=== PATIENT | female | born 2000 | race Caucasian/White ===

== ENCOUNTER 2022-09-01 19:08 | Emergency (ER) | payer MEDICAID, SELFPAY ==
--- NOTE | ~2022-09-01 | CT_ITS ---
EXAMINATION: CT HEAD WITHOUT CONTRAST CT CERVICAL SPINE WITHOUT CONTRAST CLINICAL INFORMATION: Head strike. COMPARISON: None TECHNIQUE: Contiguous axial imaging was performed from the skull base to vertex without intravenous administration of contrast. Contiguous axial imaging was performed from the upper chest through the skull base without intravenous administration of contrast. Coronal and sagittal reformats were obtained at the acquisition workstation. This CT examination was performed using dose optimization techniques as appropriate, variously including the following: *Automated exposure control *Adjustment of mA and/or kV according to patient size (this includes techniques or standardized protocols for targeted exams where dose is matched to indication/reason for exam; i.e. extremities or head) *Use of iterative reconstruction technique DLP: 699 and 642 mGy-cm FINDINGS: Head: There is no evidence of acute intracranial hemorrhage or edematous territorial infarction. There is no abnormal attenuation within the brain parenchyma. Cornelius-white matter differentiation is preserved. The ventricles are normal in size and configuration. No evidence for obstructive hydrocephalus. No abnormal mass effect or midline shift. No extra-axial fluid collections. Hematoma along the frontal scalp. No displaced calvarial fracture. The mastoid air cells and paranasal sinuses are clear. Cervical Spine: The atlantooccipital and atlantoaxial articulations remain well aligned. Straightening of the normal cervical lordosis. Otherwise, there is anatomic alignment of the vertebral bodies and posterior elements. No evidence of acute fracture or subluxation. The vertebral body heights and disc spaces are maintained. There is no prevertebral soft tissue swelling. The thyroid gland and remaining cervical soft tissues are normal in appearance. The lung apices demonstrate no abnormalities. CT/CT cervical spine wo IV con IMPRESSION: 1. Hematoma along the frontal scalp. 2. No acute intracranial pathology. 3. No acute cervical spinal fractures or malalignment.
[2022-09-01 19:18] VITALS: BP 200/110; PULSE 102; O2SAT 96; BMI 49.2
--- NOTE | 2022-09-01 19:27 | PC.NURSE ---
Pt presents to ED via EMS. Pt is staying at [facility] for SI Pt had an episode that lead to banging their head into a wall. Pt denies LOC. Pt stated their brain just felt foggy. Facility wants pt to get CT scan of their head to make sure everything is okay, then pt can come back. Pt is calm and cooperative at this time, with a small laceration to the top of the head bleeding minimal and controlled.Pt presents A&Ox4, GCS 15, with warm dry skin. Pt denies SI, HI. Pt has a tremor at baseline since a lithium overdose a few weeks ago. Uses a walker at baseline, per EMS.
[2022-09-01 19:30] VITALS: BP 141/76; PULSE 100; RESP 26; TEMP 36.9; O2SAT 96
--- NOTE | 2022-09-01 19:44 | PC.NURSE ---
Called [facility] and spoke with [employer] supervisor who reported pt just needs a clean CT report and will be accepted back to the facility.
--- NOTE | 2022-09-01 20:41 | ED_ITS ---
HPI - Medical Clearance General Chief complaint: Medical Clearance Stated complaint: SECTION 12 Time Seen by Provider: 09/01/22 20:00 Source: patient Mode of arrival: EMS Limitations: no limitations History of Present Illness HPI Narrative: Patient comes to the emergency room via ambulance from therapist. Patient had an emotional upset, I remain headache as a wall. Patient denies SI or HI. Patient was sent here for a CAT scan and cleared they will take her back. Patient denies any other injuries other than the head contusion. Currently the patient was nauseous but now self-resolved. No vomiting, no double vision, no numbness or tingling of extremities. Related Information Allergies Allergy/AdvReac Type Severity Reaction Status Date / Time No Known Allergies Allergy Unverified 10/30/19 19:35 [No Known Allergies*] Review of Systems Review of Systems: Constitutional : No Weight loss, No Fever, No Chills, No Night Sweats, No Fatigue, No Malaise ENT/Mouth : No Hearing loss, No Ear Pain, No Nasal Congestion, No Sinus Pain, No Hoarseness, No sore throat, No Rhinorrhea, No Swallowing Difficulty Eyes: No Eye Pain, No Swelling, No Redness, No Foreign Body, No Discharge, No Vision Changes Cardiovascular : No Chest Pain, No SOB, No Dyspnea on Exertion, No Orthopnea, No Edema, No Palpitations Respiratory : No Cough, No Sputum, No Wheezing, No Smoke Exposure, No Dyspnea Gastrointestinal : No Nausea, No Vomiting, No Diarrhea, No Constipation, No abdominal Pain, No Hematochezia, No Melena Genitourinary : no irregular bleeding, No Dysuria, No Urinary Frequency, No Hematuria, No Urinary Incontinence, No Urgency, No Flank Pain, No Urinary Flow Changes, No Hesitancy Musculoskeletal : No joint pain, No Myalgias, No Joint Swelling Skin : Contusion and abrasion to the top of the head in the scalp, bleeding controlled No Skin Lesions, No rash Neuro : No Weakness, No Numbness, No Paresthesias, No Loss of Consciousness, No Dizziness, No Headache Psych : No Anxiety/Panic, No Depression, No SI/HI/AH/VH, No Social Issues, Heme/Lymph: No Bruising, No Bleeding,No Lymphadenopathy Endocrine : No Polyuria, No Polydipsia, No Temperature Intolerance [facility] Social History Social History Alcohol intake: never Smoked in Last 30 Days: Yes Use of substances other than those prescribed or required for medical reasons: Yes Substance Use Type: Marijuana Substance Use Frequency: Occasionally Advance Directives: No Advance Directives Information Provided: Yes Patient : No Physical Exam Vital Signs: Vital Signs: Last Vital Signs Temp 98.5 F 09/01/22 19:30 Pulse 100 09/01/22 19:30 Resp 26 H 09/01/22 19:30 BP 141/76 H 09/01/22 19:30 Pulse Ox 96 09/01/22 19:30 O2 Del Method Room Air 09/01/22 19:30 BMI result Body Mass Index 49.2 Const: Other: Appearance: Alert. Oriented X3. No acute distress. Eyes: Pupils equal, round and reactive to light. ENT: Pharynx normal. Neck: Normal inspection. Neck supple. No lymph nodes noted. No crepitus CVS: Normal heart rate and rhythm. Pulses normal. Normal S1 and S2 Respiratory: No respiratory distress. Breath sounds normal. No Wheezing. No rales Abdomen: Soft and nontender. No rigidity. No distention. Skin: Skin warm and dry. There is a 5 cm x 5 cm laceration to the top of the scalp, bleeding controlled, no lacerations that need stitches/nelson. Extremities: No lower extremity edema. No Lacerations. No Rash Neuro: Oriented X 3. No motor deficit. No sensory deficit. Moving all extremities. No slurred speech. CN 2 through 12 grossly intact Psych: calm, cooperative, normal affect Course Course Course Narrative: -patient is alert and oriented x3, neurologically intact. -head CT pending Medical Decision Making Medical Decision Making MDM Narrative: -patient has small abrasion to the head. -my interpretation head CT does not show any acute intracranial abnormalities. -the facility his 1 good take the patient back Differential Diagnosis Differential Diagnoses: The differential diagnosis associated with the presentation includes (Contusion, concussion, intracranial bleed) Independent Interpretation I performed an independent interpretation of an: CT Scan Radiology Impression Discussion of test interpretation with radiology: I have reviewed the radiologist's reading. Radiologist Impression: FINDINGS: Head: There is no evidence of acute intracranial hemorrhage or edematous territorial infarction. There is no abnormal attenuation within the brain parenchyma. Cornelius-white matter differentiation is preserved. The ventricles are normal in size and configuration. No evidence for obstructive hydrocephalus. No abnormal mass effect or midline shift. No extra-axial fluid collections. Hematoma along the frontal scalp. No displaced calvarial fracture. The mastoid air cells and paranasal sinuses are clear. Cervical Spine: The atlantooccipital and atlantoaxial articulations remain well aligned. Straightening of the normal cervical lordosis. Otherwise, there is anatomic alignment of the vertebral bodies and posterior elements. No evidence of acute fracture or subluxation. The vertebral body heights and disc spaces are maintained. There is no prevertebral soft tissue swelling. The thyroid gland and remaining cervical soft tissues are normal in appearance. The lung apices demonstrate no abnormalities. CT/CT cervical spine wo IV con IMPRESSION: 1.? Hematoma along the frontal scalp. 2.? No acute intracranial pathology. 3.? No acute cervical spinal fractures or malalignment. Discharge Plan Discharge Clinical Impression: Abrasion head, Contusion Patient Disposition: Home, Self-Care Instructions: Scalp Contusion in Adults (ED) Additional Instructions: Please follow-up with your primary care physician tomorrow. If you have any worsening or new symptoms, please return to the emergency room or call 911
--- NOTE | 2022-09-02 00:11 | MHC.EDTECH ---
call out to vee at [phone] to book transport for pt back to [facility], estimated eta given is [phone]
--- NOTE | 2022-09-02 00:17 | PC.NURSE ---
Attempted to call report to [facility] at 00:17. Ambulance scheduled for 00:50
--- NOTE | 2022-09-02 00:46 | PC.NURSE ---
Attempted to call report to [facility] multiple times, both supervisor records change and fourth floor. No answer, I left a message and am waiting for a call back.
--- NOTE | 2022-09-02 01:51 | PC.NURSE ---
Spoke with staff from [facility] and gave an update. They requested for me to call back when pt ambulance is here.
== END 2022-09-02 02:15 | disposition home or self-care (01) ==
PROVIDERS: Emergency Provider Emergency Medicine
DX: S00.03XA Contusion of scalp, initial encounter (principal); S00.01XA Abrasion of scalp, initial encounter; X83.8XXA Intentional self-harm by other specified means, initial encounter; Y93.9 Activity, unspecified; Y92.049 Unspecified place in boarding-house as the place of occurrence of the external cause; Y99.9 Unspecified external cause status
CPT/HCPCS: 70450; 72125; 99284

== ENCOUNTER 2023-06-07 19:03 | Inpatient (IN) | payer OTHER, SELFPAY ==
--- NOTE | 2023-06-07 15:09 | PM.EVENT ---
Documented by User: Jaye Hoskins APRN 06/07/23 15:15 Event Note Date of Service: 06/07/23 Event Note: Physician review with [facility] to prepare for transfer. 22 yo non-binary, goes by Adam. Discharged from [facility] 06/03, overdosed the same day on Tylenol. Pt found to have high levels, which today are zero. Team worked with poison crontrol. No intensive interventions were required, fluids and acetylcysteine were used. Pt experienced only mild nausea, levels decreased progressively. Time Spent With Patient Time: Total time managing care of this patient today ____ minutes. Documented by User: Vik Ramsay MD 06/08/23 23:09 Event Note Date of Service: 06/08/23
[2023-06-07 19:00] VITALS: BP 143/80; PULSE 85; RESP 21; TEMP 36.9; O2SAT 97
--- OUTSIDE RECORDS SUMMARY | 2023-06-07 19:08 | XMS_ITS | Continuity of Care Document ---
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 wall; history of multiple suicide attempts via a myriad of different methods including toxic ingestion, running into traffic, hanging ?? PAST TREATMENT TRIALS:??Adderall reported in external RX; pt reports failed trials of Thorazine (rash), Trileptal (rash), Geodon (tremors) ?? TREATMENT PROVIDERS:??Reports Dr. Moss is??outpatient psychiatrist ?? SUBSTANCE USE:?? Substances:??Cannabis, most recent use 2 weeks ago, about 2-3 times per week [1] ?? Hospital Course Patient??was admitted on a conditional voluntary.?? Monitored on unit standard safety checks and all appropriate safety measures??in place.?? Treatment team saw the patient daily for medication management, mental status exam, and safety assessment.?? Bhanu??was initially??preoccupied with pain??when admitted to the unit.?? Recognize that the??trigger for??the overdose attempt was??the [facility], who had validated??his physical symptoms and??worked with him to??identify??causes and treatment.?? Because this was??an impulse??triggered by??external events,??medications??were not changed.?? Patient states these medications have been helpful and??he has been doing very well for several months??on this regimen.?? He struggled intermittently with memories of the mental health unit.?? In some senses he??associated the unit with a permission to self-harm and??had 1 serious??self-harming attempt??early in his stay, when he was found in the bathroom with a pair of leggings wrapped around his neck. ??After this, he was??monitored??on constant observation??for several days.?? He had several less intense??self-harming episodes, where he??banged his head on the wall.?? These were brief??and??he was generally able to??correct course, take PRNs and process with staff quickly.?? After??several days on one-to-one observation,??Allyson??returned to??more independence on the u nit and did well.?? He attended groups??and was selectively social.?? He??used??a walker??on days??when??intermittent??generalized body aches were bad.?? Generally??cooperative,??in good humor,??using insight??and motivated to return home. ?? Day of Discharge??Note Allyson is??smiling and anxious to check in this morning, anticipating discharge.?? States it was generally a boring weekend, but he was able to remain safe.?? Points out??a small abrasion??on??frontalarea of this goal, admits??having an episode of head banging on Sunday.?? According to nursing staff??and??chart review,??patient had??a brief episode of head banging, but was able to reach out to staff??and process his distress, ceased self-destructive behavior.?Also took as needed medications.?? Today, Allyson??says there was no special trigger??to this behavior. ??He recognizes that??he was overstimulated by all of the activity and noise on the unit, but continued to??participate because??he was having fun.?? States he??did struggle with pain intermittently through the weekend, but at other times did not need to use the walker.?? He states more days here is not going to be good for me .?? He is looking forward to??getting home.?? States that if he becomes overwhelmed??or feels unsafe,??he will talk to his roommate,??text or call??his posting clerk??or take a nap.?? Denies thoughts of suicide or homicide, denies auditory of visual hallucinations.?? Shantellen is appropriate for??discharge home from the mental health unit today. ?? Psychiatric Review of Systems Depression:??No symptoms today Anxiety:??Mild excitement because of the discharge Shwetha:??No symptoms of shwetha today Psychotic:??denies today PTSD:??No overt symptoms today ADHD:??None evident ?? Mental Status Exam ?? General appearance:??Wearing casual clothes from home, well groomed, abrasion visible on??head??from head banging last week Eye contact:??Appropriate, normal Musculoskeletal:??Generalized body aches Behavior:??Cooperative, relaxed Speech:??Fluent,??normal rate and volume, minimal Mood:??Bright Affect:??Full range Thought Content:??Looking forward to discharge Thought Process:??Linear, organized, goal oriented Suicidality/Self harm:??Denies currently Homicidality/violence:??Denies Cognition:??[memory, orientation, concentration, executive function]??grossly intact Insight:??Good Judgement:??Good Reliability: Good Objective Assessment and Plan ?Patient instructions Continue taking medications??as prescribed Follow-up with your psychiatrist to discuss to monitor medications Follow-up with your outpatient therapist for psychotherapy Do not drink alcohol, use marijuana or cannabis products, or use illicit drugs such as cocaine If you notice a slip, quickly seek care to prevent relapse If having thoughts of hurting yourself or others, please reach out to family, trusted care provideror crisis line?? Vital Signs?? Temperature: 96.9 DegF (08/28/22 08:27:00) Temperature Route: Temporal (08/28/22 08:27:00) Pulse Rate:??109 bpm??High (08/28/22 08:27:00) Respiratory Rate: 16 br/min (08/28/22 08:29:00) Systolic Blood Pressure: 132 mm Hg (08/28/22 08:27:00) Diastolic Blood Pressure: 73 mm Hg (08/28/22 08:27:00) Blood pressure sites: Arm, left (08/28/22 08:27:00) Mean Arterial Pressure: 93 mm Hg (08/28/22 08:27:00) Pulse Pressure: 59 mm Hg (08/28/22 08:27:00) Oxygen Saturation: 96 % (08/28/22 08:27:00) Mode of Delivery (Oxygen): Room air (08/27/22 20:00:00) ? . Physical Exam Vital signs reviewed Consultants Physical therapy Pending Results COVID-19 (2019 Novel Coronavirus) PCR ordered on 08/28/2022 Post Discharge Care Discharge ?08/28/22 10:16:00 EDT Home Health Face to Face ^HomeHealthFTF Results Discharge Labs BLOOD COUNT & DIFF WBC 9.5 k/mm3 ()?? 08/16/2022 21:48 RBC 5.06 m/mm3 ()?? 08/16/2022 21:48 Hgb 14.1 Gm/dL ()?? 08/16/2022 21:48 Hct 42.7 % ()?? 08/16/2022 21:48 MCV 84.4 femtoliters ()?? 08/16/2022 21:48 MCH 27.9 pg ()?? 08/16/2022 21:48 MCHC 33.0 g/dL ()?? 08/16/2022 21:48 Platelet Count 220 k/mm3 ()?? 08/16/2022 21:48 RDW-SD 40.5 femtoliters ()?? 08/16/2022 21:48 MPV 12.7 femtoliters (High)?? 08/16/2022 21:48 Nucleated RBC (Automated) 0.0 #/100 WBC'S ()?? 08/16/2022 21:48 Abs. NRBC 0.0 k/mm3 ()?? 08/16/2022 21:48 Abs. Neut 5.1 k/mm3 ()?? 08/16/2022 21:48 Abs. Lymph 3.0 k/mm3 ()?? 08/16/2022 21:48 Abs. [place] 1.0 k/mm3 (High)?? 08/16/2022 21:48 Abs. Eo 0.3 k/mm3 ()?? 08/16/2022 21:48 Abs. Baso 0.1 k/mm3 ()?? 08/16/2022 21:48 Neut % 53.8 % ()?? 08/16/2022 21:48 Lymph % 31.7 % ()?? 08/16/2022 21:48 [place] % 10.5 % ()?? 08/16/2022 21:48 Eos % 2.9 % ()?? 08/16/2022 21:48 Baso % 0.7 % ()?? 08/16/2022 21:48 Imm Gran 0.4 % ()?? 08/16/2022 21:48 Abs. Imm Gran 0.0 k/mm3 ()?? 08/16/2022 21:48 ?? CHEM GENERAL Sodium 139 mmol/L ()?? 08/17/2022 06:18 Potassium 3.8 mmol/L ()?? 08/17/2022 06:18 Chloride 110 mmol/L (High)?? 08/17/2022 06:18 Bicarbonate Level 20 mmol/L (Low)?? 08/17/2022 06:18 Anion Gap 9 ()?? 08/17/2022 06:18 Glucose Level 98 mg/dL ()?? 08/17/2022 06:18 BUN 11 mg/dL ()?? 08/17/2022 06:18 Creatinine-Blood 0.7 mg/dL ()?? 08/17/2022 06:18 Estimated GFR Creatinine 121 ML/MIN/1.73 M2 ()?? 08/17/2022 06:18 Calcium 8.8 mg/dL ()?? 08/17/2022 06:18 Magnesium 1.9 mg/dL ()?? 08/16/2022 21:48 Protein, Total 6.2 Gm/dL ()?? 08/16/2022 21:48 Albumin 3.8 Gm/dL ()?? 08/16/2022 21:48 AG Ratio 1.6 ()?? 08/16/2022 21:48 Alkaline Phosphatase 82 units/L ()?? 08/16/2022 21:48 AST (SGOT) 23 units/L ()?? 08/16/2022 21:48 ALT (SGPT) 37 units/L (High)?? 08/16/2022 21:48 Bilirubin, Total 0.2 mg/dL ()?? 08/16/2022 21:48 ?? COAG INR 1.0 ()?? 08/16/2022 21:48 Protime (PT) 10.2 seconds ()?? 08/16/2022 21:48 ?? ENDOCRINE/TUMOR MARKER Blood <1 mIU/mL ()?? 08/16/2022 21:48 ? HEME OTHER Hold Lavender Top SPECIMEN DISCARDED AFTER 24 HOURS. ()?? 08/24/2022 12:48 ? LIPID STUDIES Cholesterol 155 mg/dL ()?? 08/17/2022 06:18 Triglycerides 190 mg/dL (High)?? 08/17/2022 06:18 HDL Cholesterol 31 mg/dL (Low)?? 08/17/2022 06:18 LDL Cholesterol 86 mg/dL ()?? 08/17/2022 06:18 Non HDL Cholesterol 124 mg/dL ()?? 08/17/2022 06:18 ? TOXICOLOGY/TDM Ethanol, Serum or Plasma NONE DETECTED mg/dL ()?? 08/16/2022 21:48 [place] Level <0.1 mmol/L (Low)?? 08/24/2022 12:50 Salicylate Level <0.3 mg/dL (Low)?? 08/16/2022 21:48 Barbiturate Screen, Urine NONE DETECTED ()?? 08/16/2022 22:46 Cannabinoid Screen, Urine NONE DETECTED ()?? 08/16/2022 22:46 Cocaine Metabolite Screen, Urine NONE DETECTED ()?? 08/16/2022 22:46 Benzodiazepine Screen, Urine NONE DETECTED ()?? 08/16/2022 22:46 Amphetamine Screen, Urine NONE DETECTED ()?? 08/16/2022 22:46 Opiate Screen, Urine NONE DETECTED ()?? 08/16/2022 22:46 Acetaminophen Level <5 mg/L (Low)?? 08/16/2022 21:48 ?? UA/URINALYSIS Appear/Color, Urine LIGHT YELLOW ()?? 08/16/2022 22:46 Clarity CLEAR (N)?? 08/16/2022 22:46 Specific Jensen, Urine 1.020 ()?? 08/16/2022 22:46 pH, Urine 7.0 ()?? 08/16/2022 22:46 Albumin, Urine NEGATIVE (N)?? 08/16/2022 22:46 Glucose, Urine NEGATIVE (N)?? 08/16/2022 22:46 Ketones, Urine NEGATIVE (N)?? 08/16/2022 22:46 Bilirubin, Urine NEGATIVE (N)?? 08/16/2022 22:46 Hemoglobin, Urine NEGATIVE (N)?? 08/16/2022 22:46 Nitrite, Urine NEGATIVE (N)?? 08/16/2022 22:46 Leukocyte, Urine NEGATIVE (N)?? 08/16/2022 22:46 Urobilinogen NORMAL mg/dL (N)?? 08/16/2022 22:46 Hold Urine Culture Testing available 48 hours from time of collection. ()?? 08/16/2022 22:46 ? URINE OTHER Est Creatinine Clearance 116.65 mL/min ()?? 08/17/2022 01:49 ? VIROLOGY COVID-19 by RT-PCR NEGATIVE ()?? 08/16/2022 22:27 COVID-19 PCR Specimen Source NASAL ()?? 08/24/2022 08:01 COVID-19 PCR Result NEGATIVE ()?? 08/24/2022 08:01 ? 60_ minutes spent on discharge * Dania Delgado: PERFORM Event Display: Discharge/Transfer Note Hospital Authored Date: [id number] Psychiatric Discharge Plan Entered On: 08/28/2022 11:19 EDT Performed On: 08/28/2022 11:17 EDT by Dania Delgado Discharge Plan Level of Care at Discharge : Home/Family/SelfCare/RestHome/Group Home/Sub AbuseTx ([facility]) Dania Delgado - 08/28/2022 11:17 EDT Discharge Plan Additional Information : You are discharging and returning to your apartment. You will resume working with your outpatient providers in the community. You prefer to make your own aftercare appointments. Dania Delgado - 08/28/2022 11:48 EDT Mode of Transportation : Leodan Chiang Arranged Transport Date/Time : 08/28/2022 12:30 EDT Dania Delgado - 08/28/2022 11:17 EDT Other Physician/PCP : Narda Fonseca [facility] [address] [place] [address] FAX: Dania Delgado - 08/28/2022 11:17 EDT Crisis Services Psychiatric Crisis Services : For your area are available 24 hours every day, by calling: Crisis Services : [facility] [phone] Dania Delgado - 08/28/2022 11:48 EDT * Angel Looney RN: PERFORM Event Display: Patient Education/Instruction Authored Date: [id number] Inpatient Adult Discharge Instructions [facility] [address], [place] [id number] Name: IDRIS WALTER : 2000 Visit: 08/17/2022 15:53:00 Current Date: 08/28/2022 12:12 Account: [id number] Inpatient Adult Discharge Instructions We would like to thank you for allowing us to assist you with your healthcare needs. The following includes patient education materials and information regarding your injury/illness. Our entire staffstrives to provide an excellent experience for our patients and their families. PLEASE ENSURE YOU FOLLOW-UP PER THE INSTRUCTIONS BELOW! ?? YOUR OPINION IS IMPORTANT TO US! Please complete the survey you may receive by mail or email. Your feedback will be used to make improvements to the healthcare experiences of our patients and their families. Surveys are administered by [employer] ?? If further treatment with your primary care physician or another doctor is recommended, it is important for you to keep the appointment. Call your primary care physician or return to the Emergency Department immediately if your condition worsens, fails to improve, or new symptoms develop. If you need to find a doctor, you can call [facility] [email or web address] for a referral at [phone] or toll free at [phone] or log in to [email or web address] ?? You can view and manage your care through the patient portal or by using a health care sharonda of your choosing. [employer] is a website that allows you to securely view your medical information including your hospital discharge summary, office visit summaries, medications and follow-up visits. You can also request appointments, renew medications, and request access to your medical information using a health care sharonda of your choosing, or just ask a question. You can enroll at [email or web address] or register during your next office visit. You have been discharged from [facility], Patient Care Unit: MHU. If you have any questions regarding these instructions after you leave, please call us and we will be happy to assist you. [facility] Your Care Team Attending Physician Taylor Peter MD Discharging Providers Flor Godoy NP Reason for Admission Routine Medical History and Physical Your Diagnosis Posttraumatic stress disorder Suicide attempt Major depressive disorder, recurrent, severe w/o psychotic behavior Borderline personality disorder in remission Tests Performed Below is a partial list of the tests performed during your hospitalization. You may have had other tests and procedures not included in this list. Please discuss all test results with your provider. Acetaminophen Level Alcohol Level Amphetamine Urine Screen Aspirin Level Barbiturate Urine Screen Basic Metabolic Panel Benzodiazepine Urine Screen Cannabinoid Urine Screen CBC w/ Differential Cocaine Urine Screen Comprehensive Metabolic Panel COVID-19 (Novel Coronavirus), Rapid PCR HOLD LAVENDER TUBE INR LIPID PANEL [place] Level Magnesium Level Opiate Screen Urine Serum Quantitative Urinalysis w/hold for Urine Culture Primary Care Provider Katie RILEY, Narda Fonseca Advance Directive Health Care Proxy on File No Patient does not wish or is unable to decide Discharge Vitals Temperature: 96.9 DegF Height: 168 cm Pulse Rate:??109 bpm??High Weight: 144 kg Respiratory Rate: 16 br/min Body Mass Index:??51.02 kg/m2??Critical Systolic Blood Pressure: 132 mm Hg Body surface area: 2.59 Diastolic Blood Pressure: 73 mm Hg ?? Oxygen Saturation: 96 % ?? Studies Pending All tests and labs ordered during this hospital stay have been completed unless listed below. Please discuss all pending results with your provider listed above in these instructions. ?? COVID-19 (2019 Novel Coronavirus) PCR What to do next Instructions From Your Doctor Discharge Orders Scheduled Follow-Up Appointments 2022 2:00 PM EDT ?? With: Michael RILEY, Blaire Skaggs Where: [facility] Status: Pending Discharge Medications IDRIS WALTER :2000 Visit Date:08/17/2022 Medications: Please continue your medications until treatment is completed or stopped by your provider. Medications not listed below should be discontinued. Discuss any questions related to medications with your provider. What How Much When Instructions Next Dose New Topiramate (topiramate 25 mg oral tablet) 25 Milligram Oral Daily Tomorrow 9am Changed DiphenhydrAMINE (diphenhydrAMINE 50 mg oral capsule) 1 capsule Oral Twice a day as needed for Anxiety As needed, not given today Changed Haloperidol (haloperidol 5 mg oral tablet) 1 tab(s) Oral 3 times a day as needed for Anxiety As needed, not given today Changed [place] (lithium 300 mg oral tablet) 300 Milligram Oral Twice a day Tonight bedtime Unchanged Fluoxetine (PROzac 20 mg oral capsule) 2 capsule Oral Daily Tomorrow 9am Unchanged Gabapentin (gabapentin 300 mg oral capsule) 2 capsule Oral 3 times a day Today 3pm Unchanged Methylphenidate (methylphenidate 54 mg oral tablet, extended release) 1 tab(s) Oral Daily Tomorrow 9am Unchanged Prazosin (prazosin 2 mg oral capsule) 1 capsule Oral Daily at Bedtime Tonight bedtime ?? What How Much When Comments Stop Taking Ammonium Lactate 12% (ammonium lactate 10% topical cream) See instructions Topically 2 times a day to feet ?? Stop Taking Aripiprazole (ARIPiprazole 10 mg oral tablet) 2 tab(s) Oral Daily Stop Taking Benztropine (benztropine 1 mg oral tablet) 1 tab(s) Oral Every 6 hours as needed for Other PRN for extrapyramidal symptoms ?? Stop Taking HydrOXYzine (hydrOXYzine pamoate 25 mg oral capsule) 2 capsule Oral 4 times a day as needed for Anxiety Stop Taking Ondansetron (ondansetron 4 mg oral tablet, disintegrating) 4 Milligram Oral Every 6 hours as needed for Nausea & Vomiting Test Results Below is a partial list of the most recent Laboratory test results done prior to this discharge. You may have had other tests and procedures not included in this list. Please discuss all test resultswith your provider. Est Creatinine Clearance - 116.65 mL/min (08/17/2022) Acetaminophen Level (08/16/2022) ? ?Acetaminophen Level - <5 mg/L Alcohol Level (08/16/2022) ???Ethanol, Serum or Plasma - NONE DETECTED Amphetamine Urine Screen (08/16/2022) ???Amphetamine Screen, Urine - NONE DETECTED Aspirin Level (08/16/2022) ? ?Salicylate Level - <0.3 mg/dL Barbiturate Urine Screen (08/16/2022) ???Barbiturate Screen, Urine - NONE DETECTED Basic Metabolic Panel (08/17/2022) ???Sodium - 139 mmol/L???Potassium - 3.8 mmol/L???Chloride - 110 mmol/L???Bicarbonate Level - 20 mmol/L???Anion Gap - 9???Glucose Level - 98 mg/dL???BUN - 11 mg/dL???Creatinine-Blood - 0.7 mg/dL???Estimated GFR Creatinine - 121 ML/MIN/1.73 M2???Calcium - 8.8 mg/dL Benzodiazepine Urine Screen (08/16/2022) ???Benzodiazepine Screen, Urine - NONE DETECTED Cannabinoid Urine Screen (08/16/2022) ???Cannabinoid Screen, Urine - NONE DETECTED CBC w/ Differential (08/16/2022) ???WBC - 9.5 k/mm3???RBC - 5.06 m/mm3???Hgb - 14.1 Gm/dL???Hct - 42.7 %???MCV - 84.4 femtoliters???MCH - 27.9 pg???MCHC - 33.0 g/dL???Platelet Count - 220 k/mm3???RDW-SD - 40.5 femtoliters???MPV - 12.7 femtoliters???Nucleated RBC (Automated) - 0.0 #/100 WBC'S???Abs. NRBC - 0.0 k/mm3???Abs. Neut - 5.1 k/mm3???Abs. Lymph - 3.0 k/mm3???Abs. [place] - 1.0 k/mm3???Abs. Eo - 0.3 k/mm3???Abs. Baso - 0.1 k/mm3???Neut % - 53.8 %???Lymph % - 31.7 %???[place] % - 10.5 %???Eos % - 2.9 %???Baso % - 0.7 %???Imm Gran - 0.4 %???Abs. Imm Gran - 0.0 k/mm3 Cocaine Urine Screen (08/16/2022) ???Cocaine Metabolite Screen, Urine - NONE DETECTED Comprehensive Metabolic Panel (08/16/2022) ???Sodium - 141 mmol/L???Potassium - 3.9 mmol/L???Chloride - 110 mmol/L???Bicarbonate Level - 21 mmol/L???Anion Gap - 10???Glucose Level - 98 mg/dL???BUN - 12 mg/dL???Creatinine-Blood - 0.8 mg/dL???Estimated GFR Creatinine - 103 ML/MIN/1.73 M2???Calcium - 9.7 mg/dL???Protein, Total - 6.2 Gm/dL???Alb umin - 3.8 Gm/dL???AG Ratio - 1.6???Alkaline Phosphatase - 82 units/L???AST (SGOT) - 23 units/L???ALT (SGPT) - 37 units/L???Bilirubin, Total - 0.2 mg/dL COVID-19 (Novel Coronavirus), Rapid PCR (08/16/2022) ???COVID-19 by RT-PCR - NEGATIVE HOLD LAVENDER TUBE (08/24/2022) ???Hold Lavender Top - SPECIMEN DISCARDED AFTER 24 HOURS. INR (08/16/2022) ???INR - 1.0???Protime (PT) - 10.2 seconds LIPID PANEL (08/17/2022) ???Cholesterol - 155 mg/dL???Triglycerides - 190 mg/dL???HDL Cholesterol - 31 mg/dL???LDL Cholesterol - 86 mg/dL???Non HDL Cholesterol - 124 mg/dL [place] Level (08/24/2022) ? ?[place] Level - <0.1 mmol/L Magnesium Level (08/16/2022) ???Magnesium - 1.9 mg/dL Opiate Screen Urine (08/16/2022) ???Opiate Screen, Urine - NONE DETECTED Serum Quantitative (08/16/2022) ? ?Blood - <1 mIU/mL Urinalysis w/hold for Urine Culture (08/16/2022) ???Appear/Color, Urine - LIGHT YELLOW???Clarity - CLEAR???Specific Jensen, Urine - 1.020???pH, Urine - 7.0???Albumin, Urine - NEGATIVE???Glucose, Urine - NEGATIVE???Ketones, Urine - NEGATIVE???Bilirubin, Urine - NEGATIVE???Hemoglobin, Urine - NEGATIVE???Nitrite, Urine - NEGATIVE???Leukocyte, Urine- NEGATIVE???Urobilinogen - NORMAL???Hold Urine Culture - Testing available 48 hours from time of collection. Allergies (NKA means No Known Allergies) Geodon??(full body tremors) Thorazine??(Skin rash) Trileptal ibuprofen Problems Active Problems??(6) COVID-19?? COVID-19 virus infection?? Depression?? Major depressive disorder, recurrent?? Severe obesity?? Tobacco dependence?? Education Materials Below is the list of Educational Leaflet Providered with your Discharge Instructions. Valuables and Belongings I fully understand and agree that [facility] accepts no responsibility for all my personal property including clothing, toilet articles, radios, jewelry, dentures, hearing aids, rings, money, or any other property that is in my possession or is brought to me after admission. I understand certain valuables may be placed in a hospital safe for a short period of time. I understand that the hospital is not liable for loss or damage due to accident, fire, or other natural occurrence while said property is in the safe. I accept full responsibility for any personal property that I keep with me, and will not hold the hospital responsible in case of loss or disappearance. I acknowledge that i have been encouraged to send valuables and belongings home. ?? Deposit/Withdrawal: Deposit Money/Amount: 0 Date for Pt to Sign Valuables/Belongings: 08/17/22 16:04:00 ?? Other Discharge Information ? Pulmonary Rehab Status?? Pulmonary Rehab Discharge Status?? Respiratory Rate: 16 br/min ?? Psychiatric Discharge Plan?? Discharge Plan Psych?? Other Agency?? Crisis Services?? Level of Care at Discharge: Home/Family/SelfCare/RestHome/Group Home/Sub AbuseTx ([facility] Physician/PCP: Narda Fonseca [facility] [address] [place] [phone] FAX: Psychiatric Crisis Services: For your area are available 24 hours every day, by calling: Discharge Plan Additional Information: You are discharging and returning to your apartment. You will resume working with your outpatient providers in the community. You prefer to make your own aftercare appointments. ?? Crisis Services: [facility] - [facility]NIC[facility] [phone] Mode of Transportation: [employer] ? Arranged Transport Date/Time: 08/28/22 12:30:00 ? Common Emergency Awareness Tips IS IT A STROKE? Act FAST and Check for these signs: FACE Does the face look uneven? ARM Does one arm drift down? SPEECH Does their speech sound strange? TIME Call at any sign of stroke ?? Heart Attack Signs Chest discomfort: Most heart attacks involve discomfort in the center of the chest and lasts more than a few minutes, or goes away and comes back. It can feel like uncomfortable pressure, squeezing, fullness or pain. Discomfort in upper body: Symptoms can include pain or discomfort in one or both arms, back, neck, jaw or stomach. Shortness of breath: With or without discomfort. Other signs: Breaking out in a cold sweat, nausea, or lightheaded. Remember, MINUTES DO MATTER. If you experience any of these heart attack warning signs, call to get immediate medical attention! ?? Smoking can increase your chances of developing chronic health problems and can cause harmful effects to other family members in your house. If you smoke, you are strongly encouraged to quit. Please call [facility] [employer] Link at [phone] or [phone]) or log in to [email or web address] for referrals to smoking cessation programs. ?? 861 Suicide & Crisis Lifeline is available 04/09 if you or someone you know needs to find a reason to keep living. By calling 485 you'll be connected to a skilled, trained counselor at a crisis center in your area. INPATIENT DISCHARGE INSTRUCTIONS SIGNATURE PAGE MORGAN IDRIS Location:[facility] Registration Date and Time:08/17/2022 15:53 EDT Primary Care Physician: Narda Wilson NP, Attending Physician: Taylor Peter MD, I IDRIS WALTER, have received the above patient education materials/instructions and have verbalizedunderstanding. If ambulance or transport services are being used I further acknowledge being given a choice of service. ?? If you need to contact me, please call me at this number: . Patient/Fuel Dock Attendant Name: Patient/Fuel Dock Attendant Signature: Relationship to Patient: Witness Name/Signature: Date: Patient Care team information Care Team Personnel Name: Natasha Dickey RN Position: [facility] RN Member Role: Primary Care Nurse Name: Blaire Solis RN Position: [facility] RN Member Role: Primary Care Nurse Name: Stefani Pinto RN Position: [facility] RN Member Role: Primary Care Nurse Name: Melissa Stapleton RN Position: [facility] RN Member Role: Primary Care Nurse Name: Ligia Stapleton RN Position: [facility] RN Member Role: Primary Care Nurse Name: Narda Wilson NP Position: Reference Physician Member Role: PCP Address: Address: [address] [place] [address] Name: Mariaelena Collazo RN Position: [facility] RN Member Role: Primary Care Nurse Name: Nikki Croft RN Position: [facility] RN Supv Member Role: Primary Care Nurse Name: John Cuellar RN Position: [facility] RN Member Role: Primary Care Nurse Name: Dsaia Anderson RN Position: [facility] ED RN W/OE and Tasks Member Role: Patient Care Provider Name: Glenda Moody MD Position: [facility] ED Medicine MD Member Role: ED Attending Physician Address: Address: [address] [place] [address] Name: Ann Masters Position: [facility] ED OA Charge Member Role: ED Associate Name: Kody Thakur RN Position: [facility] ED RN W/OE and Tasks Member Role: Patient Care Provider Care Team Related Persons Name: CORRECTION FITTINGS TIGHTENERYENI Address: home [address] [place] [address] Name: YULIYA WALTER Address: home [address] [place] [address] Name: SUNDAY WALTER Address: [place] [address]
--- OUTSIDE RECORDS SUMMARY | 2023-06-07 19:08 | XMS_ITS | Continuity of Care Document ---
Author Organization [facility] ter Address [address] [place] [address]- Care Team Providers Care Manager China Name Role Phone Katie RILEY, Narda Marian Primary Care Physici an Encounter [facility] [place] Date(s): 04/18/20 - 04/19/[address] [address]- Discharge Disposition: Disch/Trans to a [facility] Attending Physician: Rola ESTES, Shaina Mcgill Admitting Physician: Kyle Alvarez MD Referring Physician: Not on Staff, Referring MD Allergies, Adverse Reactions, Alerts Substance Reaction Severity Status Trileptal Active Immunizations Given and Recorded Vaccine Date Status Refusal Reason tetanus/diphtheria/pertussis, acel(Tdap) 12/22/19 Given Medications Abilify 10 mg oral tablet 10 mg, 1, tablet, By Mouth, Daily, Takes @ night, Refills 0, Maintenance, 04/15/20 21:02:00 EST, Partial fill upon patient request if the prescription is for a schedule II opioid drug. Start Date: 04/15/20 Status: Ordered DiphenhydrAMINE = 50 mg, Daily at bedtime, PRN at bedtime, 0 Refills, Maintenance, 11/22/19 11:27:00 EDT Start Date: 11/22/19 Status: Ordered Effexor XR 75 mg oral capsule, extended release 75 mg, 1, capsule, By Mouth, Daily, # 30 capsule, Refills 0, Maintenance, 04/14/20 20:02:00 EST, Partial fill upon patient request if the prescription is for a schedule II opioid drug. Start Date: 04/14/20 Status: Ordered ibuprofen 400 mg oral tablet See Instructions, 1 tablet By Mouth Every 6 hours/pRN for pain, Refills 0, Maintenance, 11/22/19 11:28:00 EDT, Instructions Replace Required Details Start Date: 11/22/19 Status: Ordered prazosin 2 mg oral capsule 1 capsule = 2 mg, By Mouth, Daily at bedtime, takes with 5 mg prazosin, 0 Refills, Maintenance, 04/14/20 20:04:00 EST, Partial fill upon patient request if the prescription is for a schedule II opioid drug. Start Date: 04/14/20 Status: Ordered prazosin 5 mg oral capsule 5 mg, 1, capsule, By Mouth, Daily at bedtime, Refills 0, Maintenance, 11/22/19 11:21:00 EDT Start Date: 11/22/19 Status: Ordered Thorazine Tablet = 50 mg, By Mouth, Daily, PRN Agitation, 0 Refills, Maintenance, 04/19/20 16:21:00 EST, Tablet, Partial fill upon patient request if the prescription is for a schedule II opioid drug. Start Date: 04/19/20 Status: Ordered traZODone 50 mg oral tablet 50 mg, 1, tablet, By Mouth, Daily at bedtime, Refills 0, Maintenance, 04/14/20 20:01:00 EST, Partial fill upon patient request if the prescription is for a schedule II opioid drug. Start Date: 04/14/20 Status: Ordered Tylenol 325 mg oral tablet See Instructions, PRN, 2 tablet By Mouth Every 4 hours PRN for pain and fever, Refills 0, Maintenance, for fever, 11/22/19 11:32:00 EDT, Instructions Replace Required Details Start Date: 11/22/19 Status: Ordered Problem List Condition Effective Dates Status Health Status Inform ant Depression(Confirmed) Active Tobacco dependence(Confirmed) Active Vital Signs Most recent to oldest [Reference Range]: 1 2 3 Oxygen Saturation [94-100 %] 99 % (04/19/20 11:25 AM) 98 % (04/19/20 6:39 AM) 96 % (04/19/20 1:53 AM) Pulse Rate [55-90 bpm] 104 bpm *H* (04/19/20 11:25 AM) 98 bpm *H* (04/19/20 6:39 AM) 100 bpm *H* (04/19/20 1:53 AM) Blood Pressure [90-138/55-84 mm Hg] 141/67mm Hg *H* (04/19/20 11:25 AM) 134/71mm Hg (04/19/20 6:39 AM) 136/69mm Hg (04/19/20 1:53 AM) Respiratory Rate [16-30 br/min] 16 br/min (04/19/20 11:25 AM) 17 br/min (04/19/20 6:39 AM) 17 br/min (04/19/20 1:53 AM) Temperature [96.8-100.4 DegF] 98.6 DegF (04/19/20 11:25 AM) 98.3 DegF (04/19/20 6:39 AM) 98.4 DegF (04/19/20 1:53 AM) Mode of Delivery (Oxygen) Room air (04/19/20 11:25 AM) Room air (04/19/20 6:39 AM) Room air (04/19/20 1:53 AM) Blood pressure sites Arm, right (04/19/20 11:25 AM) Arm, right (04/19/20 6:39 AM) Arm, left (04/19/20 1:53 AM) Temperature Route Oral (04/19/20 11:25 AM) Oral (04/19/20 6:39 AM) Oral (04/19/20 1:53 AM) Social History Social History Type Response Smoking Status 10 or more cigarette s (1/2 pack or more)/day in last 30 days entered on: 09/07/18 Sex
--- OUTSIDE RECORDS SUMMARY | 2023-06-07 19:08 | XMS_ITS | Continuity of Care Document ---
Author Organization [facility] Address [address] [place] [address]- Care Team Providers Care Chiseler Head Name Role Phone Katie RILEY, Narda Marian Primary Care Physici an Encounter [facility] [place] [place] Date(s): 04/14/20 - 04/14/[address] [address]- Discharge Disposition: Transfer to [facility] Facility Attending Physician: Torrey Morfin MD Admitting Physician: Torrey Morfin MD Referring Physician: Not on Staff, Referring MD Allergies, Adverse Reactions, Alerts Substance Reaction Severity Status NKA Active Immunizations Given and Recorded Vaccine Date Status Refusal Reason tetanus/diphtheria/pertussis, acel(Tdap) 12/22/19 Given Medications DiphenhydrAMINE = 50 mg, Daily at bedtime, [...] 11:21:00 EDT Start Date: 11/22/19 Status: Ordered traZODone 50 mg oral tablet [...] recent to oldest [Reference Range]: 1 2 Height 167 cm (04/14/20 11:10 PM) 167 cm (04/14/20 7:49 PM) Weight 131.5 kg (04/14/20 11:10 PM) 131.5 kg (04/14/20 7:49 PM) Oxygen Saturation [94-100 %] 97 % (04/14/20 7:49 PM) Pulse Rate [55-90 bpm] 120 bpm *H* (04/14/20 7:49 PM) Blood Pressure [90-138/55-84 mm Hg] 138/ 84mm Hg (04/14/20 7:49 PM) Respiratory Rate [16-30 br/min] 18 br/mi n (04/14/20 7:49 PM) Temperature [96.8-100.4 DegF] 99.2 DegF (04/14/20 7:49 PM) Mode of Delivery (Oxygen) Room air (04/14/20 7:49 PM) Temperature Route Oral (04/14/20 7:49 PM) Dry Weight 131.5 kg (04/14/20 11:10 PM) 131.5 kg (04/14/20 7:49 PM) Weight Obtained Via Patient/family state d (04/14/20 7:49 PM) Social History Social History Type Response Smoking Status 10 or more cigarette s (2 pack or more)/day in last 30 days entered on: 09/07/18 Sex
--- OUTSIDE RECORDS SUMMARY | 2023-06-07 19:08 | XMS_ITS | Continuity of Care Document ---
Author Organization [facility] Address [address] [place] [address]- Care Team Providers Care Stone Engraver Name Role Phone Katie RILEY, Narda Fonseca Primary Care Physicclaudia an Encounter [facility] [place] Date(s): 02/23/22 - 02/24/[address] [address]- Encounter Diagnosis Ingestion of toxin(Final) - 02/23/22 Suicidal ideation(Final) - 02/23/22 Discharge Disposition: A-D/C Home Attending Physician: Mario Alberto Colon MD Admitting Physician: Mario Alberto Colon MD Referring Physician: Not on Staff, Referring [...] (COVID-19) mRNA BNT-162b2 vac 03/02/20 Recorded Medications ammonium lactate 10% topical cream See Instructions, Topically 2 times a day to feet, # 42 Gm, 0 Refills, Maintenance, 01/24/22 9:26:00 EST, Cream, [facility]-, Partial fill upon patient request if the prescription is for a schedule II opioid drug., Topically 2... Start Date: 01/24/22 Status: Ordered ARIPiprazole 10 mg oral tablet 20 mg, 2, tablet, By Mouth, Daily, # 60 tablet, Refills 0, Tot. Refills 0, Maintenance, 01/24/22 9:25:00 EST, Route to Pharmacy Electronically, [facility]-, Partial fill upon patient request if the prescription is for a schedul... Start Date: 01/24/22 Status: Ordered benztropine 1 mg oral tablet 1 mg, 1, tablet, By Mouth, Every 6 hours, PRN, PRN for extrapyramidal symptoms, # 60 tablet, Refills 0, Tot. Refills 0, Maintenance, Other, 01/24/22 9:26:00 EST, Route to Pharmacy Electronically, [facility], Partial fill upon... Start Date: 01/24/22 Status: Ordered diphenhydrAMINE 25 mg oral tablet 2 tablet = 50 mg, By Mouth, 3 times a day, PRN Agitation, to be given with haldol only, # 60 tablet, 0 Refills, Maintenance, 01/24/22 9:26:00 EST, Tablet, [facility]-, Partialfill upon patient request if the prescription is fo... Start Date: 01/24/22 Status: Ordered gabapentin 300 mg oral capsule 600 mg, Capsule, By Mouth, 02/24/22 9:00:00 EST Start Date: 02/24/22 Stop Date: 02/24/22 Status: Completed gabapentin 300 mg oral capsule 600 mg, 2, capsule, By Mouth, 3 times a day, # 180 capsule, Refills 0, Tot. Refills 0, Maintenance,01/24/22 9:26:00 EST, Route to Pharmacy Electronically, [facility], Partial fill upon patient request if the prescription is f... Start Date: 01/24/22 Status: Ordered haloperidol 5 mg oral tablet 5 mg, 1, tablet, By Mouth, Every 4 hours, PRN, to be given with diphenhydramine, # 60 tablet, Refills 0, Tot. Refills 0, Maintenance, Agitation, 01/24/22 9:26:00 EST, Route to Pharmacy Electronically, [facility]-, Partial fill... Start Date: 01/24/22 Status: Ordered hydrOXYzine pamoate 25 mg oral capsule 2 capsule = 50 mg, By Mouth, 4 times a day, PRN Anxiety, # 90 capsule, 0 Refills, Maintenance, 01/24/22 9:26:00 EST, Capsule, [facility], Partial fill upon patient request ifthe prescription is for a schedule II opioid drug.,... Start Date: 01/24/22 Status: Ordered lithium 600 mg oral capsule = 600 mg, By Mouth, 2 times a day, # 60 capsule, 0 Refills, Maintenance, 01/24/22 9:27:00 EST, Capsule, [facility], Partial fill upon patient request if the prescription is for a schedule II opioid drug., 168, cm, 01/24/22 7:2... Start Date: 01/24/22 Status: Ordered methylphenidate 54 mg oral tablet, extended release 1 tablet = 54 mg, By Mouth, Daily, # 30 tablet, 0 Refills, Maintenance, 01/24/22 9:27:00 EST, ER Tablet, [facility], Partial fill upon patient request if the prescription is for a schedule II opioid drug., 168, cm, 01/24/22 7:... Start Date: 01/24/22 Status: Ordered ondansetron 4 mg oral tablet, disintegrating = 4 mg, By Mouth, Every 6 hours, PRN Nausea & Vomiting, # 30 capsule, 0 Refills, Maintenance, 01/24/22 9:27:00 EST, Tablet, [facility], Partial fill upon patient request if the prescription is for a schedule II opioid drug., 1... Start Date: 01/24/22 Status: Ordered prazosin 2 mg oral capsule 1 capsule = 2 mg, By Mouth, Daily at bedtime, # 30 capsule, 0 Refills, Maintenance, 01/24/22 9:27:00 EST, Capsule, [facility], Partial fill upon patient request if the prescription is for a schedule II opioid drug., 168, cm, 1... Start Date: 01/24/22 Status: Ordered PROzac 20 mg oral capsule 40 mg, 2, capsule, By Mouth, Daily, # 60 capsule, Refills 0, Tot. Refills 0, Maintenance, 01/24/22 9:26:00 EST, Route to Pharmacy Electronically, [facility]-, Partial fill upon patient request if the prescription is for a sched... Start Date: 01/24/22 Status: Ordered Problem List Condition Confirmation Course Effective Dates Status Health St atus Informant COVID-19 virus infection Confirmed Active COVID-19 1 Confirmed 11/15/21 Active Depression Confirmed Active Major depressive disorder, recurrent Confirmed Active Severe obesity Confirmed Active Tobacco dependence Confirmed Active 1Problem added by Discern Expert Results Radiology Reports * Exam Date Time Procedure Performing Provider Status 02/24/22 2:49 AM Chest Portable Racquel Nino; Auth (Verified) Notes: (Chest Portable) Reason For Exam: Shortness of Breath RESULT: Chest Portable Chest Portable HX OF PRESENT ILLNESS: C O toxic ingestion SI. Patient attempts to strangle self w sock unsuccessfully, then around 2300 ingests 4 tide pods. Reports 1 ruptured in mouth but otherwise swallowed whole.; Reason: Shortness of Breath; Clinical Question(s): CHF / CHF COMPARISON: 04/20/2021. FINDINGS: LINES AND TUBES: None. LUNGS AND PLEURA: Clear lungs. Normal pulmonary vascularity. No pleural effusion. No pneumothorax. HEART, MEDIASTINUM AND JOAQUIN: Heart is normal in size. Normal mediastinal and hilar contour. BONES AND SOFT TISSUES: No acute abnormality. IMPRESSION: No evidence of acute abnormality. WSN: [id number] Ordering Physician: Stewart Hirsch Dictated By: Madhav Garcia MD Dictated Date/Time: 02/24/22 7:34 am Reviewed By: Madhav Garcia MD Signed By: Madhav Garcia MD Signed Date/Time: 02/24/22 7:34 am Transcribed By: DEJON Transcribed Date/Time: 02/24/22 7:33 am Vital Signs Most recent to oldest [Reference Range]: 1 2 3 Height 167 cm (02/24/22 9:23 AM) 167 cm (02/24/22 6:08 AM) 167 cm (02/24/22 5:29 AM) Weight 136 kg (02/24/22:23 AM) 136 kg (02/24/22 6:08 AM) 136 kg (02/24/22:29 AM) Oxygen Saturation [94-100 %] 96 % (02/24/22:23 AM) 95 % (02/24/22 6:08 AM) 97 % (02/24/22:29 AM) Pulse Rate [55-90 bpm] 82 bpm (02/24/22:23 AM) 92 bpm *H* (02/24/22 6:08 AM) 87 bpm (02/24/22:29 AM) Body Mass Index [18.5-24.99 kg/m2] 48.76 kg/m2 *>HHI* (02/24/22:23 AM) 48.76 kg/m2 *>HHI* (02/24/22 6:08 AM) 48.76 kg/m2 *>HHI* (02/24/22:29 AM) Blood Pressure [90-138/55-84 mm Hg] 100/78mm Hg (02/24/22:23 AM) 109/69mm Hg (02/24/22 6:08 AM) 119/64mm Hg (02/23/22 11:43 PM) Respiratory Rate [16-30 br/min] 16 br/min (02/24/22 9:31 AM) 16 br/min (02/24/22:23 AM) 18 br/min (02/24/22:29 AM) Temperature [96.8-100.4 DegF] 97.3 DegF (02/24/22:23 AM) 98.7 DegF (02/23/22 11:43 PM) Mode of Delivery (Oxygen) Room air (02/24/22:23 AM) Room air (02/24/22 6:08 AM) room air (02/24/22:29 AM) Blood pressure sites Arm, left (02/24/22: AM) Temperature Route Oral (02/24/22:23 AM) Temporal (02/23/22 11:43 PM) Dry Weight 136 kg (02/24/22:23 AM) 136 kg (02/24/22 6:08 AM) 136 kg (1/13/23 5:29 AM) Social History Social History Type Response Smoking Status 10 or more cigarette s (1/2 pack or more)/day in last 30 days entered on: 12/11/20 Sex EKG study * Event Display: ECG 12-Lead Authored Date: Please click on pdf link to open report * Event Display: ECG 12-Lead Authored Date: Ventricular Rate: 97 BPM Atrial Rate: 97 BPM P-R Interval: 182 ms QRS Duration: 88 ms Q-T Interval: 354 ms QTC Calculation(Bazett): 449 ms P [place]: 56 degrees R [place]: 55 degrees T [place]: 39 degrees Normal sinus rhythm Possible Left atrial enlargement Borderline ECG When compared with ECG of 19-FEB-2022 20:30, Possible LAE now present Confirmed by CHRISTEN NÚÑEZ ([id number]) on 02/24/2022 4:45:09 PM [place]: CHRISTEN NÚÑEZ Note * Mario Alberto Colon MD: PERFORM, SIGN, VERIFY Event Display: Patient Education Handout Authored Date: [id number] * Mario Alberto Colon MD: PERFORM Event Display: Patient Education Leaflets Authored Date: [id number] Intentional Overdose, Psych Evaluation??(Adult) ?? [id number] Intentional Overdose, Psych Evaluation??(Adult) You have been evaluated and treated for taking a drug or chemical product with the intent to harm yourself. There is no sign of a toxic effect at this time. It's not likely that you will have any newsymptoms. To be safe, watch for new symptoms during the next 24 hours (see below). Symptoms will depend on the type of drug or chemical you took. An intentional overdose is likely a sign that you are depressed. Or you may be very angry with yourself or someone else. For this reason, you have received a psychiatric (psych) evaluation. It's very important for you to follow the instructions in this evaluation. Home care ??? If you are being sent home, have someone stay with you. The emotional impact of the overdose may not sink in for a while. ??? Have your friend remove all potential self-harm objects from your home such as drugs or weapons. They should put them in a place that's unknown to you. ??? Find out the suicide prevention hotline numbers, emergency numbers, and your provider numbers. Place them where they can be easily located. Give the phone numbers to your friends and family members. ??? If you were given liquid charcoal, your stools will have a black color for 1 to 2 days. A laxative is often given with charcoal. This speeds the removal of any toxins from the intestines. This may cause diarrhea for up to 24 hours. ??? If you were given charcoal but no laxative, you may become constipated. If that happens, you may take an cshu-prl-aarbodn laxative. ?? In an emergency Once you get home, keep a list of emergency numbers near. This includes trusted family members, friends, your healthcare provider, and the National Suicide Prevention Lifeline. Trained crisis counselors at the [facility] are available by calling or texting 768. An online chat option is also availableat www.suicidepreventionlifeline.org. You can also call [employer] at 197-917-KHHP (893-213-3257). [employer] is free and available 04/09. ?? Follow-up care Follow up with your healthcare provider, or as advised. ??? If you are being sent home, have someone stay with you until you follow up with your healthcareprovider, clinic, or therapist. Do this as soon as possible. ??? If you feel the urge to harm yourself again, call or text [phone]. You will be connected to trained crisis counselors at the National Suicide Prevention Lifeline. ??? If you were given information about a healthcare provider, therapist, or clinic, follow up with them. ??? If you are being discharged for evaluation right away at a psychiatric facility on a voluntary basis, go directly there with a responsible adult. ??? If you have been placed on a ???72- hour psychiatric hold,?? a ride to a facility will be arranged for you. In the future, if you or someone you know takes something that may be harmful, call the [employer] [facility] [employer] [facility] at 576-011-1831. There is someone there 24 hours a day. If you call, you will be connected to the poison control center closest to you. ?? Call 262 Call 591 if any of these occur: ??? Intense desire to harm yourself and a way to carry to out ??? Trouble breathing or swallowing, wheezing ??? Severe confusion ??? Extreme drowsiness or trouble waking up ??? Fainting or loss of consciousness ??? Fast heart rate ??? Very slow heart rate ??? Very low or very high blood pressure ??? Vomiting blood or large amounts of blood in stool ??? Seizure ?? When to get medical advice Call your healthcare provider right away if any of these occur: ??? Shakiness ??? Fast breathing (more than 25 breaths per minute) or slow breathing (less than 8 breaths per minute) ??? Shortness of breath ??? Fever of 100.4??F (38??C) or higher, or as directed by your healthcare provider ??? Shaking chills ??? Vomiting or diarrhea for more than 24 hours ??? Belly pain ??? Dizziness or weakness ??? Thoughts of harming yourself again (call or text 667) ?? For more help ??? National Suicide Prevention Lifeline at www.suicidepreventionlifeline.org or 004-157-VHNH (178-661-4487) ??? Substance Abuse and Mental Health Services Administration Helpline at www .sama.gov/find-help/national-helpline or 915-375-IXAT (935-258-4869) ??? National [place] on Mental Illness at www.willow.org or 923-412-3695 or text WILLOW to 028380 ??? Mental Health [place]omen[place] at www.[facility].org or 215-076-4753 ?? Last Reviewed Date: 2021 ?? The [employer]. All rights reserved. This information is not intended as a substitute for professional medical care. Always follow your healthcare professional's instructions. ?? Portable XR Chest Views * STEPHANSPowerscrisusanna , GALDINO S: TRANSCRISUSANNA Garcia MD, Madhav S: VERIFY Event Display: Result: Authored Date: [id number] Chest Portable HX OF PRESENT ILLNESS: C O toxic ingestion SI. Patient attempts to strangle self w sock unsuccessfully, then around 2300 ingests 4 tide pods. Reports 1 ruptured in mouth but otherwise swallowed whole.; Reason: Shortness of Breath; Clinical Question(s): CHF / CHF COMPARISON: 04/20/2021. FINDINGS: LINES AND TUBES: None. LUNGS AND PLEURA: Clear lungs. Normal pulmonary vascularity. No pleural effusion. No pneumothorax. HEART, MEDIASTINUM AND JOAQUIN: Heart is normal in size. Normal mediastinal and hilar contour. BONES AND SOFT TISSUES: No acute abnormality. IMPRESSION: No evidence of acute abnormality. WSN: [id number] Ordering Physician: Stewart Hirsch Dictated By: Madhav Garcia MD Dictated Date/Time: 02/24/22 7:34 am Reviewed By: Madhav Garcia MD Signed By: Madhav Garcia MD Signed Date/Time: 02/24/22 7:34 am Transcribed By: DEJON Transcribed Date/Time: 02/24/22 7:33 am Patient Care team information Care Team Personnel Name: Natasha Dickey RN Position: [facility] RN Member Role: Primary Care Nurse Name: Lauryn Nolasco Position: [facility] RN Member Role: Primary Care Nurse Name: Blaire Solis RN Position: [facility] RN Member Role: Primary Care Nurse Name: Stefani Pinto RN Position: [facility] RN Member Role: Primary Care Nurse Name: Melissa Stapleton RN Position: [facility] RN Member Role: Primary Care Nurse Name: Ligia Stapleton RN Position: S RN Member Role: Primary Care Nurse Name: Martin Martinez RN Position: [facility] RN Member Role: Primary Care Nurse Name: Narda Wilson NP Position: Reference Physician Member Role: PCP Address: Address: [address] [place] [address] Name: Mariaelena Collazo RN Position: S RN Member Role: Primary Care Nurse Name: Nikki Croft RN Position: [facility] RN Supv Member Role: Primary Care Nurse Name: Giana Huntley RN Position: S RN Member Role: Primary Care Nurse Name: John Cuellar RN Position: S RN Member Role: Primary Care Nurse Name: Holly Bowman RN Position: [facility] RN Member Role: Primary Care Nurse Name: Aline Izaguirre RN Position: S RN Member Role: Primary Care Nurse Name: Mario Alberto Colon MD Position: [facility] ED Medicine MD Member Role: Admitting Physician Address: Address: [address] [place] [address] [place] [address]- Name: Enrique Kulkarni RN Position: S ED RN W/OE and Tasks Member Role: Patient Care Provider Care Team Related Persons Name: ASSISTED CADET DECKYENI Address: [address] [address] Name: YULIYA MORA Address: home [address] [place] [address] Name: SUNDAY [place] Address: [place] [address]
--- OUTSIDE RECORDS SUMMARY | 2023-06-07 19:08 | XMS_ITS | Continuity of Care Document ---
Author Organization [facility] Address [address] [place] [id number]- Care Team Providers Care Certified Veterinary Technician Name Role Phone Katie RILEY, Narda Fonseca Primary Care Blanco marino En[place] [facility] [place] Date(s[place] 12/10/21 - 12/12/[address] [address]- Encounter Diagnosis Intentional self-harm by glass(Final) - 12/11/21 Suicidal ideation(Final) - 12/11/21 Forearm laceration(Final) - 12/11/21 Discharge Disposition: A-D/C Home Attending Physician: Mario [...] Vaccine Date Status Refusal Reason tetanus/diphtheria/pertussis, acel(Tdap) 10/19/21 Given tetanus/diphtheria/pertussis, acel(Tdap) 12/22/19 Given SARS-CoV-2 (COVID-19) mRNA-1273 vaccine 01/25/21 R ecorded influenza virus vaccine, inactivated 11/11/20 Give n SARS-CoV-2 (COVID-19) mRNA BNT-162b2 vac 04/13/20 Recorded SARS-CoV-2 (COVID-19) mRNA BNT-162b2 vac 03/02/20 Recorded Medications ARIPiprazole 10 mg oral tablet 20 mg, 2, tablet, By Mouth, Daily, # 60 tablet, Refills 0, Tot. Refills 0, Maintenance, 11/15/21 10:18:00 EDT, [id number] Partial fill upon patient request if the prescription is for a schedul... Start Date: 11/15/21 Status: Ordered Flonase Nares, Both, 2 times a day, PRN Congestion, 0 Refills, Maintenance, 12/08/21 2:58:00 EDT, Partial fill upon patient request if the prescription is for a schedule II opioid drug. Start Date: 12/08/21 Status: Ordered gabapentin 300 mg oral capsule 300 mg, By Mouth, 2 times a day, Afternoon and HS, # 60 capsule, Refills 0, Tot. Refills 0, Maintenance, 11/15/21 10:12:00 EDT, [facility], Partial fill upon patient request if the prescription... Start Date: 11/15/21 Status: Ordered gabapentin 300 mg oral capsule 600 mg, By Mouth, Daily in AM, # 60 capsule, Refills 0, Tot. Refills 0, Maintenance, 11/15/21 10:12:00 EDT, [id number], Partial fill upon patient request if the prescription is for a schedule I... Start Date: 11/15/21 Status: Ordered gabapentin 300 mg oral capsule 600 mg, Capsule, By Mouth, 12/11/21 9:00:00 EDT Start Date: 12/11/21 Stop Date: 12/11/21 Status: Completed gabapentin 300 mg oral capsule 300 mg, Capsule, By Mouth, 12/11/21 21:00:00 EDT Start Date: 12/11/21 Stop Date: 12/11/21 Status: Completed gabapentin 300 mg oral capsule 600 mg, Capsule, By Mouth, 12/12/21 9:00:00 EDT Start Date: 12/12/21 Stop Date: 12/12/21 Status: Completed haloperidol 5 mg oral tablet 5 mg, 1, tablet, By Mouth, Every 8 hours, PRN, # 90 tablet, Refills 0, Tot. Refills 0, Maintenance,Agitation, 11/15/21 10:12:00 EDT, Route to Pharm[facility] Electronically, [id number], Partial fill upon patient request if the prescr... Start Date: 11/15/21 Status: Ordered lithium 600 mg oral capsule = 600 mg, By Mouth, 2 times a day, # 60 capsule, 0 Refills, Maintenance, 11/15/21 10:12:00 EDT, Capsule, [facility]-[id number], Partial fill upon patient request if the prescription is for a schedule II opioid drug., 168, cm, 11/14/21 21:... Start Date: 11/15/21 Status: Ordered metFORMIN 500 mg oral tablet 1 each = 500 mg, By Mouth, 2 times a day, # 60 tablet, 0 Refills, Maintenance, 11/15/21 10:12:00 EDT, Tablet, [facility]-[id number], Partial fill upon patient request if the prescriptionis for a schedule II opioid drug., 168, cm, ... Start Date: 11/15/21 Status: Ordered prazosin 1 mg oral capsule 2 mg, Capsule, By Mouth, 12/11/21 21:00:00 EDT Start Date: 12/11/21 Stop Date: 12/11/21 Status: Completed prazosin 2 mg oral capsule 1 capsule = 2 mg, By Mouth, Daily at bedtime, # 30 capsule, 0 Refills, Maintenance, 11/15/21 10:12:00 EDT, Capsule, [facility]-[id number], Partial fill upon patient request if the prescription is for a schedule II opioid drug., 168, cm, 1... Start Date: 11/15/21 Status: Ordered PROzac 20 mg oral capsule 40 mg, 2, capsule, By Mouth, Daily, # 60 capsule, Refills 0, Tot. Refills 0, Maintenance, 11/15/21 10:12:00 EDT, Route to Pharmacy Electronically, [facility]-[id number], Partial fill upon patient request if the prescription is for a sched... Start Date: 11/15/21 Status: Ordered Problem List Condition Confirmation Course Effective Dates Status Health St atus Informant COVID-19 virus infection Confirmed Active COVID-19 1 Confirmed 11/15/21 Active Depression Confirmed Active Major depressive disorder, recurrent Confirmed Active Severe obesity Confirmed Active Tobacco dependence Confirmed Active 1Problem added by Discern Expert Vital Signs Most recent to oldest [Reference Range]: 1 2 3 4 Height 168 cm (12/12/21 2:55 AM) 168 cm (12/11/21 4:42 AM) 168 cm (12/10/21 9:16 PM) Weight 138.5 kg (12/12/21 2:55 AM) 138.5 kg (12/11/21 4:42 AM) 138.5 kg (12/10/21 9:16 PM) Oxygen Saturation [94-100 %] 96 % (12/12/21 2:55 AM) 96 % (12/11/21 8:42 PM) 98 % (12/11/21 3:36 PM) Pulse Rate [55-90 bpm] 92 bpm *H* (12/12/21 2:55 AM) 86 bpm (12/11/21 8:42 PM) 71 bpm (12/11/21 3:36 PM) Body Mass Index [18.5-24.99 kg/m2] 49.07 kg/m2 *>HHI* (12/12/21 2:55 AM) 49.07 kg/m2 *>HHI* (12/11/21 4:42 AM) 49.07 kg/m2 *>HHI* (12/10/21 9:16 PM) Blood Pressure [90-138/55-84 mm Hg] 119/64mm Hg (12/12/21 2:55 AM) 113/67mm Hg (12/11/21 8:41 PM) 114/71mm Hg (12/11/21 3:36 PM) Respiratory Rate [16-30 br/min] 18 br/min (12/12/21 10:03 AM) 18 br/min (12/12/21 2:55 AM) 18 br/min (12/12/21 2:55 AM) 18 br/min (12/12/21 2:55 AM) Temperature [96.8-100.4 DegF] 98 DegF (12/12/21 2:55 AM) 97.0 DegF (12/11/21 8:42 PM) 98.0 DegF (12/11/21 3:36 PM) Mode of Delivery (Oxygen) Room air (12/12/21 2:55 AM) Room air (12/11/21 8:42 PM) Room air (12/11/21 3:36 PM) Blood pressure sites Arm, right (12/12/21 2:55 AM) Arm, right (12/11/21 3:36 PM) Arm, left (12/11/21 4:42 AM) Temperature Route Temporal (12/12/21 2:55 AM) Temporal (12/11/21 8:42 PM) Temporal (12/11/21 3:36 PM) Dry Weight 138.5 kg (12/12/21 2:55 AM) 138.5 kg (12/11/21 4:42 AM) 138.5 kg (12/10/21 9:16 PM) Social History Social History Type Response Smoking Status 10 or more cigarette s (1/2 pack or more)/day in last 30 days entered on: 12/11/20 Sex Patient Care team information Personnel Name: Narda Wilson NP Address: Address: [address] [place] [phone]-
--- OUTSIDE RECORDS SUMMARY | 2023-06-07 19:08 | XMS_ITS | Continuity of Care Document ---
Author Organization [facility] Address [address] [place] [address]- Care Team Providers Care Forms Designer Name Role Phone Katie RILEY, Narda Fonseca Primary Care Physici an [place] [facility] [place]20 [facility] [address] [place] [address]- Encounter Diagnosis Depression(Final) - 06/22/20 Suicidal behavior(Final) - 06/22/20 Discharge Disposition: Transfer to [facility] Facility Attending Physician: Glenda Moody MD Admitting Physician: Glenda Moody MD Referring Physician: Not on Staff, Referring MD Allergies, Adverse Reactions, Alerts Substance Reaction Severity Status Trileptal Active Geodon full body tremors Active Immunizations Given and Recorded Vaccine Date Status Refusal Reason tetanus/diphtheria/pertussis, acel(Tdap) 12/22/19 Given Medications Abilify 20 mg oral tablet 1 tablet = 20 mg, By Mouth, Daily in AM, 0 Refills, Maintenance, 06/13/20 22:17:00 EDT, Partial fill upon patient request if the prescription is for a schedule II opioid drug. Start Date: 06/13/20 Status: Ordered lithium 450 mg oral tablet, extended release 2 tablet = 900 mg, By Mouth, Daily at bedtime, 0 Refills, Maintenance, 06/13/20 22:23:00 EDT, Partial fill upon patient request if the prescription is for a schedule II opioid drug. Start Date: 06/13/20 Status: Ordered Multivitamin Daily in AM, 0 Refills, Maintenance, 06/13/20 22:23:00 EDT, Partial fill upon patient request if the prescription is for a schedule II opioid drug. Start Date: 06/13/20 Status: Ordered prazosin 2 mg oral capsule 1 capsule = 2 mg, By Mouth, Daily at bedtime, takes with 5 mg prazosin, # 30 capsule, 0 Refills, Maintenance, 04/22/20 14:44:00 EST, Capsule, [facility]-, Partial fill upon patient request if the prescription is for a schedule... Start Date: 04/22/20 Stop Date: 05/22/20 Status: Ordered prazosin 5 mg oral capsule 5 mg, 1, capsule, By Mouth, Daily at bedtime, # 30 capsule, Refills 0, Tot. Refills 0, Maintenance,04/22/20 14:44:00 EST, Route to Pharmacy Electronically, [facility]-, Partial fill upon patient request if the prescription is... Start Date: 04/22/20 Stop Date: 05/22/20 Status: Ordered Prazosin Capsule 7 mg, Capsule, By Mouth, 06/24/20 21:00:00 EDT Start Date: 06/24/20 Stop Date: 06/24/20 Status: Completed Thorazine Tablet = 100 mg, By Mouth, 4 times a day, PRN Agitation, 0 Refills, Maintenance, 06/13/20 22:25:00 EDT, Tablet, Partial fill upon patient request if the prescription is for a schedule II opioid drug. Start Date: 06/13/20 Status: Ordered traZODone 150 mg oral tablet 1 tablet = 150 mg, By Mouth, Daily at bedtime, 0 Refills, Maintenance, 06/13/20 22:18:00 EDT, Partial fill upon patient request if the prescription is for a schedule II opioid drug. Start Date: 06/13/20 Status: Ordered venlafaxine 75 mg oral capsule, extended release 75 mg, 1, capsule, By Mouth, Daily in AM, Refills 0, Maintenance, 06/13/20 22:20:00 EDT, Partial fill upon patient request if the prescription is for a schedule II opioid drug. Start Date: 06/13/20 Status: Ordered Problem List Condition Effective Dates Status Health Status Inform ant Depression(Confirmed) Active Tobacco dependence(Confirmed) Active Vital Signs Most recent to oldest [Reference Range]: 1 2 3 Height 168 cm (06/26/20 8:11 AM) 168 cm (06/24/20 6:00 PM) 168 cm (06/23/20 9:11 PM) Weight 137.5 kg (06/26/20 8:11 AM) 137.5 kg (06/24/20 6:00 PM) 137.5 kg (06/23/20 9:11 PM) Oxygen Saturation [94-100 %] 99 % (06/26/20 8:11 AM) 96 % (06/25/20 9:46 PM) 97 % (06/25/20 5:18 PM) Pulse Rate [55-90 bpm] 108 bpm *H* (06/26/20 8:11 AM) 96 bpm *H* (06/25/20 9:46 PM) 110 bpm *H* (06/25/20 5:18 PM) Body Mass Index [18.5-24.99] 48.72 *>HHI* (06/26/20 8:11 AM) 48.72 *>HHI* (06/24/20 6:00 PM) 48.72 *>HHI* (06/23/20 9:11 PM) Blood Pressure [90-138/55-84 mm Hg] 120/78mm Hg (06/25/20 9:46 PM) 91/55mm Hg (06/25/20 5:00 AM) 118/80mm Hg (06/24/20 8:56 PM) Respiratory Rate [16-30 br/min] 17 br/min (06/26/20 8:11 AM) 16 br/min (06/25/20 9:46 PM) 20 br/min (06/25/20 5:18 PM) Temperature [96.8-100.4 DegF] 98.7 DegF (06/26/20 8:11 AM) 97.3 DegF (06/25/20 9:46 PM) 97.2 DegF (06/25/20 5:18 PM) Mode of Delivery (Oxygen) Room air (06/26/20 8:11 AM) Room air (06/25/20 9:46 PM) Room air (06/25/20 5:18 PM) Blood pressure sites Arm, right (06/26/20 8:11 AM) Arm, left (06/24/20 6:00 PM) Arm, left (06/23/20 9:25 AM) Temperature Route Oral (06/26/20 8:11 AM) Oral (06/25/20 9:46 PM) Oral (06/25/20 5:18 PM) Dry Weight 137.5 kg (06/26/20 8:11 AM) 137.5 kg (06/24/20 6:00 PM) 137.5 kg (06/23/20 9:11 PM) Weight Obtained Via Patient/family state d (06/21/20 9:03 PM) Social History Social History Type Response Smoking Status 10 or more cigarette s (1/2 pack or more)/day in last 30 days entered on: 09/07/18 Sex
--- OUTSIDE RECORDS SUMMARY | 2023-06-07 19:08 | XMS_ITS | Continuity of Care Document ---
Author Organization [facility] Address [address] [place] [address]- Care Team Providers Care Distance Learning Administrator Name Role Phone Katie RILEY, Narda Fonseca Primary Care Physici an Encounter [facility] [place] Date(s): 04/20/21 - 04/21/[address] [address]- Discharge Disposition: A-D/C Home Attending Physician: Glenda Moody MD Admitting Physician: Glenda Moody MD Referring Physician: Not on Staff, Referring MD Allergies, Adverse Reactions, Alerts Substance Reaction Severity Status Trileptal Active Geodon full body tremors Active Immunizations Given and Recorded Vaccine Date Status Refusal Reason influenza virus vaccine, inactivated 11/11/20 Give n tetanus/diphtheria/pertussis, acel(Tdap) 12/22/19 Given Medications Ativan 1 mg oral tablet 1 tablet = 1 mg, By Mouth, 3 times a day, 0 Refills, Maintenance, 12/07/20 11:03:00 EDT, Partial fill upon patient request if the prescription is for a schedule II opioid drug. Start Date: 12/07/20 Status: Ordered chlorproMAZINE 100 mg oral tablet = 100 mg, By Mouth, 3 times a day, PRN Agitation, # 90 tablet, 1 Refills, Maintenance, 11/15/20 15:51:00 EDT, Tablet, [id number], Partial fill upon patient request if the prescription is for a schedule II opioid drug., 168, cm,... Start Date: 11/15/20 Status: Ordered chlorproMAZINE 50 mg oral tablet = 50 mg, By Mouth, 3 times a day, # 90 tablet, 1 Refills, Maintenance, 11/15/20 15:50:00 EDT, Tablet, [id number], Partial fill upon patient request if the prescription is for a schedule II opioid drug., 168, cm, 11/15/20 9:15:0... Start Date: 11/15/20 Status: Ordered Detrol LA 4 mg oral capsule, extended release 1 capsule = 4 mg, By Mouth, Daily, # 30 capsule, 3 Refills, Maintenance, 12/07/20 11:25:00 EDT, CR Capsule, [facility]-[id number], Partial fill upon patient request if the prescription is for a schedule II opioid drug., 167, cm, 12/07/20... Start Date: 12/07/20 Status: Ordered hydrOXYzine pamoate 50 mg oral capsule = 50 mg, By Mouth, Every 4 hours, PRN Anxiety, # 90 capsule, 1 Refills, Maintenance, 11/15/20 15:51:00 EDT, Capsule, [facility]-[id number], Partial fill upon patient request if the prescription is for a schedule II opioid drug., 168, cm,... Start Date: 11/15/20 Status: Ordered Ibuprofen Refills 0, Maintenance, 03/17/21 10:50:00 EST, Partial fill upon patient request if the prescription is for a schedule II opioid drug. Start Date: 03/17/21 Status: Ordered lithium 300 mg oral tablet, extended release 2 tablet = 600 mg, By Mouth, 2 times a day, # 120 tablet, 1 Refills, Maintenance, 11/15/20 15:50:00EDT, ER Tablet, [facility]- [id number], Partial fill upon patient request if the prescription is for a schedule II opioid drug., 168, cm, 1... Start Date: 11/15/20 Status: Ordered prazosin 2 mg oral capsule 1 capsule = 2 mg, By Mouth, Daily at bedtime, takes with 5 mg prazosin, # 30 capsule, 1 Refills, Maintenance, 11/15/20 15:50:00 EDT, Capsule, [facility]-[id number], Partial fill upon patient request if the prescription is for a schedule I... Start Date: 11/15/20 Stop Date: 01/14/21 Status: Ordered prazosin 5 mg oral capsule 5 mg, 1, capsule, By Mouth, Daily at bedtime, # 30 capsule, Refills 1, Tot. Refills 1, Maintenance,11/15/20 15:50:00 EDT, Route to Pharmacy Electronically, [facility]-[id number], Partial fill upon patient request if the prescription is f... Start Date: 11/15/20 Stop Date: 01/14/21 Status: Ordered PROzac 40 mg oral capsule 1 capsule = 40 mg, By Mouth, Daily, # 30 capsule, 1 Refills, Maintenance, 11/15/20 15:50:00 EDT, Capsule, [facility]-[id number], Partial fill upon patient request if the prescription is for a schedule II opioid drug., 168, cm, 11/15/20 9:... Start Date: 11/15/20 Status: Ordered traZODone 150 mg oral tablet 1 tablet = 150 mg, By Mouth, Daily at bedtime, # 30 tablet, 0 Refills, Maintenance, 11/15/20 15:50:00 EDT, Tablet, [facility]-[id number], Partial fill upon patient request if the prescription is for a schedule II opioid drug., 168, cm, 10... Start Date: 11/15/20 Status: Ordered Problem List Condition Effective Dates Status Health Status Inform ant Depression(Confirmed) Active Severe obesity(Confirmed) Active Tobacco dependence(Confirmed) Active Results Radiology Reports * Exam Date Time Procedure Performing Provider Status 04/20/21 9:35 PM Chest Portable Short , Taty; Auth (Jesús ified) Notes: (Chest Portable) Reason For Exam: weakness;Other: RESULT: Chest Portable Chest Portable Hx of Present Illness: pt had virus approx 2 wks ago, returns today w increased body aches, headaches and generalized weakness. denies fevers or chills, states vomit x 1 yesterday, +nausea.; Reason: Other:; weakness; Clinical Question(s): Pneumonia COMPARISON: 11/18/2020 FINDINGS: LINES AND TUBES: None. LUNGS AND PLEURA: Clear lungs. Normal pulmonary vascularity. No pleural effusion. No pneumothorax. HEART, MEDIASTINUM AND JOAQUIN: Heart is normal in size. Normal upper mediastinal and hilar contour. BONES AND SOFT TISSUES: No acute abnormality. IMPRESSION: No acute abnormality. WSN: [id number] Ordering Physician: Torrey Morfin Dictated By: Madhav Hernandes MD Dictated Date/Time: 04/20/21 9:42 pm Reviewed By: Madhav Henrandes MD Signed By: Madhav Hernandes MD Signed Date/Time: 04/20/21 9:42 pm Transcribed By: DEJON Transcribed Date/Time: 04/20/21 9:41 pm Vital Signs Most recent to oldest [Reference Range]: 1 2 Height 168 cm (04/20/21 8:32 PM) Weight 144 kg (04/20/21 8:32 PM) Oxygen Saturation [94-100 %] 98 % (04/21/21 12:19 AM) 95 % (04/20/21 8:32 PM) Pulse Rate [55-90 bpm] 78 bpm (04/21/21 12:19 AM) 86 bpm (04/20/21 8:32 PM) Blood Pressure [90-138/55-84 mm Hg] 125/ 69mm Hg (04/21/21 12:19 AM) 128/92mm Hg (04/20/21 8:32 PM) Respiratory Rate [16-30 br/min] 18 br/mi n (04/21/21 12:19 AM) 18 br/min (04/20/21 8:32 PM) Temperature [96.8-100.4 DegF] 98.5 DegF (04/20/21 8:00 PM) Mode of Delivery (Oxygen) Room air (04/21/21 12:19 AM) Dry Weight 144 kg (04/20/21 8:32 PM) Social History Social History Type Response Smoking Status 10 or more cigarette s (1/2 pack or more)/day in last 30 days entered on: 12/11/20 Sex
--- OUTSIDE RECORDS SUMMARY | 2023-06-07 19:08 | XMS_ITS | Continuity of Care Document ---
Author Organization [facility] Address [address] [place] [address]- Care Team Providers Care Occupational Therapy Supervisor Name Role Phone Katie RILEY, Narda Fonseca Primary Care Physici an [place] [facility] [place] [facility] [address] [place] [address]- Attending Physician: AdmMoreno ochoa Admitting Physician: Admtr, [id number] Referring Physician: Admtr, [id number] Allergies, Adverse Reactions, Alerts Substance Reaction Severity [...] 1 Refills, Maintenance, 11/15/20 15:51:00 EDT, Tablet, [facility]-[id number], Partial fill upon patient request if the prescription is for a schedule II opioid drug., 168, cm,... Start Date: 11/15/20 Status: Ordered chlorproMAZINE 50 mg oral tablet = 50 mg, By Mouth, 3 times a day, # 90 tablet, 1 Refills, Maintenance, 11/15/20 15:50:00 EDT, Tablet, [facility]-[id number], Partial fill upon patient request if the prescription is for a schedule II opioid drug., 168, cm, 11/15/20 9:15:0... Start Date: 11/15/20 Status: Ordered Detrol LA 4 mg oral capsule, extended release 1 capsule = 4 mg, By Mouth, Daily, # 30 capsule, 3 Refills, Maintenance, 12/07/20 11:25:00 EDT, CR Capsule, [facility]-[id number], Partial fill upon patient request if the prescription is for a schedule II opioid drug., 167, cm, 12/07/20... Start Date: 12/07/20 Status: Ordered hydrOXYzine pamoate 50 mg oral capsule = 50 mg, By Mouth, Every 4 hours, PRN Anxiety, # 90 capsule, 1 Refills, Maintenance, 11/15/20 15:51:00 EDT, Capsule, [facility]-[id number], Partial fill upon patient request if the prescription is for a schedule II opioid drug., 168, cm,... Start Date: 11/15/20 Status: Ordered lithium 300 mg oral tablet, extended release 2 tablet = 600 mg, By Mouth, 2 times a day, # 120 tablet, 1 Refills, Maintenance, 11/15/20 15:50:00EDT, ER Tablet, [facility]- 02567, Partial fill upon patient request if the prescription is for a schedule II opioid drug., 168, cm, 1... Start Date: 11/15/20 Status: Ordered prazosin 2 mg oral capsule 1 capsule = 2 mg, By Mouth, Daily at bedtime, takes with 5 mg prazosin, # 30 capsule, 1 Refills, Maintenance, 11/15/20 15:50:00 EDT, Capsule, [facility]-[id number], Partial fill upon patient request if the prescription is for a schedule I... Start Date: 11/15/20 Stop Date: 01/14/21 Status: Ordered prazosin 5 mg oral capsule 5 mg, 1, capsule, By Mouth, Daily at bedtime, # 30 capsule, Refills 1, Tot. Refills 1, Maintenance,11/15/20 15:50:00 EDT, Route to Pharmacy Electronically, [facility]-[id number], Partial fill upon patient request if the prescription is f... Start Date: 11/15/20 Stop Date: 01/14/21 Status: Ordered PROzac 40 mg oral capsule 1 capsule = 40 mg, By Mouth, Daily, # 30 capsule, 1 Refills, Maintenance, 11/15/20 15:50:00 EDT, Capsule, [facility]-[id number], Partial fill upon patient request if the prescription is for a schedule II opioid drug., 168, cm, 11/15/20 9:... Start Date: 11/15/20 Status: Ordered traZODone 150 mg oral tablet 1 tablet = 150 mg, By Mouth, Daily at bedtime, # 30 tablet, 0 Refills, Maintenance, 11/15/20 15:50:00 EDT, Tablet, [facility]-[id number], Partial fill upon patient request if the prescription is for a schedule II opioid drug., 168, cm, 10... Start Date: 11/15/20 Status: Ordered Problem List Condition Effective Dates Status Health Status Inform ant Depression(Confirmed) Active Tobacco dependence(Confirmed) Active Social History Social History Type Response Smoking Status 10 or more cigarette s (1/2 pack or more)/day in last 30 days entered on: 12/11/20 Sex
--- OUTSIDE RECORDS SUMMARY | 2023-06-07 19:08 | XMS_ITS | Continuity of Care Document ---
Author Organization [facility] Address [address] [place] [id number]- Care Team Providers Care Lobby Concierge Name Role Phone Yovanny RILEY, Nikki Primary Care Physician [phone] Encounter [facility] Date(s): 03/12/23 - 03/14/[address] [address]- Encounter Diagnosis Medication overdose(Final) - 03/12/23 Suicide attempt(Final) - 03/12/23 Discharge Disposition: Transferred to short-term general hospit Attending Physician: Landen Trujillo DO Admitting Physician: Boogie ESTES, Magdi Rogers Referring Physician: Not on Staff, Referring MD Allergies, Adverse Reactions, Alerts Substance Reaction Severity Status Thorazine Skin rash Active Trileptal Active Geodon [...] (COVID-19) mRNA [id number] vac 03/02/20 Recorded Medications haloperidol 5 mg oral tablet 5 mg, By Mouth, 3 times a day, PRN, # 90 tablet, Refills 0, Tot. Refills 0, Maintenance, Agitation,03/06/23 16:00:00 EST, Route to Pharmacy Electronically, [facility] Partial fill upon patient request if the prescription is... Start Date: 03/06/23 Status: Ordered prazosin 1 mg oral capsule 1 mg, By Mouth, Daily at bedtime, # 30 capsule, Refills 0, Tot. Refills 0, Maintenance, 03/06/23 16:01:00 EST, Route to Pharmacy Electronically, [facility], Partial fill uponpatient request if the prescription is for a schedu... Start Date: 03/06/23 Status: Ordered Problem List Condition Confirmation Course Effective Dates Status Health St atus Informant Borderline personality disorder Confirmed Active Alcohol use Confirmed Active Depression Confirmed Active Transgender Confirmed Active NATHAN (generalized anxiety disorder) Confirmed Active History of suicide attempt Confirmed Active History of ADHD Confirmed Active History of COVID-19 Confirmed Active Major depressive disorder, recurrent Confirmed Active Severe obesity Confirmed Active Tobacco dependence Confirmed Active Vital Signs Most recent to oldest [Reference Range]: 1 2 3 Height 167 cm (03/14/23 11:15 AM) 167 cm (03/14/23 7:30 AM) 167 cm (03/14/23 4:30 AM) Weight 152.2 kg (03/13/23 8:41 AM) 152.2 kg (03/12/23 10:36 PM) 147.5 kg (03/12/23 5:54 PM) Oxygen Saturation [94-100 %] 96 % (03/14/23 11:15 AM) 96 % (03/14/23 7:30 AM) 99 % (03/14/23 4:30 AM) Pulse Rate [55-90 bpm] 84 bpm (03/14/23 11:15 AM) 86 bpm (03/14/23 7:30 AM) 79 bpm (03/14/23 4:30 AM) Body Mass Index [18.5-24.99 kg/m2] 54.57 kg/m2 *>HHI* (03/12/23 10:36 PM) Blood Pressure [90-138/55-84 mm Hg] 117/62mm Hg (03/14/23 11:15 AM) 111/81mm Hg (03/14/23 7:30 AM) 102/72mm Hg (03/14/23 4:30 AM) Respiratory Rate [16-30 br/min] 18 br/min (03/14/23 11:15 AM) 19 br/min (03/14/23 7:30 AM) 18 br/min (03/14/23 4:30 AM) Temperature [96.8-100.4 DegF] 97.6 DegF (03/14/23 11:15 AM) 97.3 DegF (03/14/23 7:30 AM) 97.8 DegF (03/14/23 4:30 AM) Liters per Minute 1 L/min (03/14/23 11:15 AM) 1 L/min (03/14/23 7:30 AM) 1 L/min (03/14/23 4:30 AM) Mode of Delivery (Oxygen) Nasal cannula (03/14/23 11:15 AM) Nasal cannula (03/14/23 7:30 AM) Nasal cannula (03/14/23 4:30 AM) Blood pressure sites Arm, right (03/14/23 11:15 AM) Arm, right (03/14/23 7:30 AM) Arm, right (03/14/23 4:30 AM) Temperature Route Oral (03/14/23 11:15 AM) Oral (03/14/23 7:30 AM) Oral (03/14/23 4:30 AM) Dry Weight 147.45 kg (03/12/23 10:36 PM) 147.45 kg (03/12/23 5:54 PM) Weight Obtained Via Bed scale (03/13/23 8:41 AM) Social History Social History Type Response Smoking Status 10 or more cigarette s (1/2 pack or more)/day in last 30 days entered on: 09/07/18 Sex Admission evaluation note * Boogie ESTES, Magdi Rogers: MODIFY, MODIFY, MODIFY, PERFORM, MODIFY, MODIFY, MODIFY, MODIFY, MODIFY, MODIFY Event Display: Admission Note Authored Date: Patient: ??JORGE MORA ? Age:??22 Years?Sex:??Female?:??2000?? Chief Complaint/Reason for Consultation OD, SI History of Present Illness 22-year-old?female with a significant psychiatric history, including alcohol abuse, borderline personality, anxiety, and depression, presented to the ED following a suicide attempt by intentional??overdose of home medications ?Pre-Hospital course: ?-Patient reportedly had suicidal attempt with intentional overdose of home medications, shetook a bunch of home medicines including duloxetine, haloperidol, prazosin, topiramate, Concerta, not aware about the dose ingested, she was feeling anxious during the time so she took this meds Of note patient has prior admissions due to suicidal attempts??with drug overdose ?ED course: ?On presentation to the ED vitals are stable Labs are significant for normal CBC, normal electrolytes, In the ED patient received charcoal, IV fluids Patient be admitted for the management of drug overdose Review of Systems A full review of systems was completed and is otherwise negative except as mentioned in history of present illness.?? Objective Vital Signs?? Temperature: 98.3 DegF (03/12/23 17:54:00) Temperature Route: Temporal (03/12/23 17:54:00) Pulse Rate:??105 bpm??High (03/12/23 20:00:00) Respiratory Rate: 18 br/min (03/12/23 20:00:00) Systolic Blood Pressure: 112 mm Hg (03/12/23 20:00:00) Diastolic Blood Pressure: 79 mm Hg (03/12/23 20:00:00) Blood pressure sites: Arm, right (03/12/23 17:54:00) Mean Arterial Pressure: 57 mm Hg (03/12/23 17:54:00) Pulse Pressure: 33 mm Hg (03/12/23 20:00:00) Oxygen Saturation: 95 % (03/12/23 20:00:00) Mode of Delivery (Oxygen): Room air (03/12/23 20:00:00) ? Physical Exam ?General: AAOx2, in no acute distress ?Neuro: CN 2-12 grossly intact, motor strength 5/5 in all extremities, no sensory deficits?HEENT: EOMI, PERRL, mouth/nose/pharynx WNL ?Neck: Supple, no LAD, JVD not congested ?Heart: Normal S1/S2, RRR, no MRGs ?Lungs: CTA b/l, no rales, rhonchi, wheezing or rubs ?Abdomen: +BS, soft, non-tender.non Distended. ?Extremities: Warm, no edema b/l. ?Musculoskeletal:??Joints (no swelling, denies tenderness). ? Assessment/Plan 22-year-old?female with a significant psychiatric history, including alcohol abuse, borderline personality, anxiety, and depression, presented to the ED following a suicide attempt by intentional??overdose of home medications ? Medication overdose (T50.901A):??- Suicide attempt (T14.91XA):??- -Patient reportedly had suicidal attempt with intentional overdose of home medications, she took a bunch of home medicines including duloxetine, haloperidol, prazosin, topiramate, Concerta, not awareabout the dose ingested, she was feeling anxious during the time so she took this meds Of note patient has prior admissions due to suicidal attempts??with drug overdose ?On presentation to the ED vitals are stable Labs are significant for normal CBC, normal electrolytes, In the ED patient received charcoal, IV fluids ?? Plan: Follow-up with poison control. every 2-hour EKGs, keep magnesium above 2 and potassium above 4. f/u urine tox screen Continue with IV fluids Monitor electrolytes Suicidal precautions Telemetry Psych consult Will hold all home meds for tonight ? Quality measures: Code Status:??Full code. Regular diet Pneumoboots ? Histories Allergies Allergies ?(Active and Proposed Allergies Only) Thorazine? (Severity: Unknown severity, Onset: Unknown) ?Reactions: Skin rash Geodon? (Severity: Unknown severity, Onset: Unknown) ?Reactions: full body tremors Trileptal? (Severity: Unknown severity, Onset: Unknown) ? Past Medical History/Problem List Active Problems??(11) Alcohol use Borderline personality disorder Depression NATHAN (generalized anxiety disorder) History of ADHD History of COVID-19 History of suicide attempt Major depressive disorder, recurrent Severe obesity Tobacco dependence Transgender ? Past Surgical History Cholecystectomy ? Social History Alcohol Details:??Use: Current. ??Frequency: 1-2 times per month. ??Type: Liquor. ??Average drinks per day:8. Employment/School Details:??Status: Unemployed. Exercise Details:??Self assessment: Poor condition. Home/Environment Details:??Living situation: Home/Independent. ??Lives with: Housemates. Nutrition/Health Details:??Diet: lactose free. Sexual Details:??Gender identity: Non-binary. ??Preferred pronoun: They/them. Substance Abuse Details:??Use: Never. Tobacco Details:??Use: 10 or more cigarettes (1/2 pack or more)/day in last 30 days. Electronic Cigarette/Vaping Details:??Electronic Cigarette Use: Never. ? Family History Father: Diabetes mellitus; Hypertension Mother: Cancer; Diabetes mellitus; Hypertension Sister: Depression ? Medications Home Medications Duloxetine (duloxetine 60 mg oral enteric coated capsule)?60?Milligram?By Mouth?Daily Haloperidol (haloperidol 5 mg oral tablet)?5?Milligram?By Mouth?3 times a day?as needed?Agitation Methylphenidate (methylphenidate 27 mg oral tablet, extended release)?27?Milligram?By Mouth?Daily Prazosin (prazosin 1 mg oral capsule)?1?Milligram?By Mouth?Daily at bedtime Topiramate (topiramate 25 mg oral tablet)?75?Milligram?By Mouth?Daily at bedtime ? Results Recent Labs BLOOD COUNT & DIFF WBC 7.4 k/mm3 ()?? 03/12/2023 18:55 RBC 4.86 m/mm3 ()?? 03/12/2023 18:55 Hgb 13.6 Gm/dL ()?? 03/12/2023 18:55 Hct 41.4 % ()?? 03/12/2023 18:55 MCV 85.2 femtoliters ()?? 03/12/2023 18:55 MCH 28.0 pg ()?? 03/12/2023 18:55 MCHC 32.9 g/dL (Low)?? 03/12/2023 18:55 Platelet Count 167 k/mm3 ()?? 03/12/2023 18:55 RDW-SD 40.9 femtoliters ()?? 03/12/2023 18:55 MPV 12.4 femtoliters ()?? 03/12/2023 18:55 Nucleated RBC (Automated) 0.0 #/100 WBC'S ()?? 03/12/2023 18:55 Abs. NRBC 0.0 k/mm3 ()?? 03/12/2023 18:55 Abs. Neut 4.4 k/mm3 ()?? 03/12/2023 18:55 Abs. Lymph 2.1 k/mm3 ()?? 03/12/2023 18:55 Abs. Sac 0.8 k/mm3 ()?? 03/12/2023 18:55 Abs. Eo 0.1 k/mm3 ()?? 03/12/2023 18:55 Abs. Baso 0.1 k/mm3 ()?? 03/12/2023 18:55 Neut % 59.1 % ()?? 03/12/2023 18:55 Lymph % 28.2 % ()?? 03/12/2023 18:55 Sac % 10.1 % ()?? 03/12/2023 18:55 Eos % 1.8 % ()?? 03/12/2023 18:55 Baso % 0.7 % ()?? 03/12/2023 18:55 Imm Gran 0.1 % ()?? 03/12/2023 18:55 Abs. Imm Gran 0.0 k/mm3 ()?? 03/12/2023 18:55 ?? CHEM GENERAL Sodium 138 mmol/L ()?? 03/12/2023 18:55 Potassium 3.8 mmol/L ()?? 03/12/2023 18:55 Chloride 107 mmol/L ()?? 03/12/2023 18:55 Bicarbonate Level 19 mmol/L (Low)?? 03/12/2023 18:55 Anion Gap 12 ()?? 03/12/2023 18:55 Glucose Level 115 mg/dL (High)?? 03/12/2023 18:55 BUN 13 mg/dL ()?? 03/12/2023 18:55 Creatinine-Blood 0.7 mg/dL ()?? 03/12/2023 18:55 Estimated GFR Creatinine 121 ML/MIN/1.73 M2 ()?? 03/12/2023 18:55 Calcium 9.2 mg/dL ()?? 03/12/2023 18:55 Magnesium 1.7 mg/dL ()?? 03/12/2023 18:55 Protein, Total 6.9 Gm/dL ()?? 03/12/2023 18:55 Albumin 4.1 Gm/dL ()?? 03/12/2023 18:55 AG Ratio 1.5 ()?? 03/12/2023 18:55 Alkaline Phosphatase 82 units/L ()?? 03/12/2023 18:55 AST (SGOT) 21 units/L ()?? 03/12/2023 18:55 ALT (SGPT) 26 units/L ()?? 03/12/2023 18:55 Bilirubin, Total 0.2 mg/dL ()?? 03/12/2023 18:55 ?? ENDOCRINE/TUMOR MARKER TSH 1.87 uIU/mL ()?? 03/12/2023 18:55 Blood <1 mIU/mL ()?? 03/12/2023 18:55 ?? HEME OTHER Hold Blue Top SPECIMEN DISCARDED AFTER 4 HOURS. ()?? 03/12/2023 18:55 ?? TOXICOLOGY/TDM Ethanol, Serum or Plasma NONE DETECTED mg/dL ()?? 03/12/2023 18:55 Salicylate Level 0.3 mg/dL (Low)?? 03/12/2023 18:55 Acetaminophen Level <5 mg/L (Low)?? 03/12/2023 18:55 ?? URINE OTHER Est Creatinine Clearance 114.88 mL/min ()?? 03/12/2023 19:20 ?? VIROLOGY Influenza A PCR NEGATIVE ()?? 03/12/2023 18:18 Influenza B PCR NEGATIVE ()?? 03/12/2023 18:18 RSV PCR NEGATIVE ()?? 03/12/2023 18:18 COVID-19 PCR Specimen Source NASAL ()?? 03/12/2023 18:18 COVID-19 PCR Result NEGATIVE ()?? 03/12/2023 18:18 ? EKG study * Event Display: ECG 12-Lead Authored Date: Please click on pdf link to open report * Event Display: ECG 12-Lead Authored Date: Ventricular Rate: 83 BPM Atrial Rate: 83 BPM P-R Interval: 212 ms QRS Duration: 102 ms Q-T Interval: 384 ms QTC Calculation(Bazett): 451 ms P [place]: 35 degrees R [place]: 38 degrees T [place]: 21 degrees Sinus rhythm with 1st degree A-V block Otherwise normal ECG When compared with ECG of 13-MAR-2023 16:54, No significant change was found Confirmed by Fausto Gutierrez ([id number]) on 03/14/2023 8:56:49 AM Fraser: Fausto Gutierrez * Event Display: ECG 12-Lead Authored Date: [id number] Please click on pdf link to open report * Event Display: ECG 12-Lead Authored Date: Ventricular Rate: 87 BPM Atrial Rate: 87 BPM P-R Interval: 226 ms QRS Duration: 102 ms Q-T Interval: 378 ms QTC Calculation(Bazett): 454 ms P [place]: 39 degrees R [place]: 60 degrees T [place]: 27 degrees Sinus rhythm with 1st degree A-V block Otherwise normal ECG When compared with ECG of 13-MAR-2023 12:54, No significant change was found Confirmed by Fausto Gutierrez ([id number]) on 03/14/2023 8:29:12 AM Fraser: Fausto Gutierrez * Event Display: ECG 12-Lead Authored Date: [id number] Please click on pdf link to open report * Event Display: ECG 12-Lead Authored Date: [id number] Ventricular Rate: 90 BPM Atrial Rate: 90 BPM P-R Interval: 224 ms QRS Duration: 104 ms Q-T Interval: 394 ms QTC Calculation(Bazett): 481 ms P [place]: 52 degrees R [place]: 55 degrees T [place]: 37 degrees Sinus rhythm with 1st degree A-V block Borderline ECG When compared with ECG of 13-MAR-2023 08:11, No significant change was found Confirmed by Fausto Gutierrez ([id number]) on 03/14/2023 8:27:34 AM Fraser: Fausto Gutierrez Hospital Progress note * Araceli Graves RN: PERFORM, MODIFY, SIGN, VERIFY Event Display: Progress Note Hospital Authored Date: Patient: JORGE MORA Age: 22 years Sex: Female : 2000 Associated Diagnoses: None Author: Araceli Graves RN Findings Narrative/Incidental [id number] shift Pt. is alert, oriented x4. Discharge plan in place prior to start of shift. One to one staff member present at the bedside. Spoke with U staff member around 1545, unable to take pt. at this time. CRN and RN supervisor lime updated. Report given to Panda from U. Pt. left unit via wheelchair with U staff member at 1824 . * Melissa Davison RN: PERFORM, SIGN, VERIFY, MODIFY, SIGN Event Display: Progress Note Hospital Authored Date: [id number] Patient: JORGE MORA Age: 22 years Sex: Female : 2000 Associated Diagnoses: None Author: Melissa Davison RN Findings Problem Related to Alteration in Safety : Alteration in Safety/new 03/14/2023 11:59 EST Alteration in Safety Related to Toxic Ingestion, Suicidal ideation Goals & Outcomes, Safety Pt will remain safe & injury free Interventions, Safety Provide info on community resources for education, support, Provide teaching as needed, Assess family dynamics & refer to counseling as needed, Initiate antidote protocol per Poison Control guidelines, Keep equipment for maintaining patent airway at bedside, Maintain suicide precautions until cleared by psychiatry Goals/Interventions, Safety Yes Safety, Problem Start 03/13/2023 10:06 Reviewed plan with, Safety Patient Patient Progression, Safety Pt progressing according to plan . Nursing Data Vital Signs : VITAL SIGNS SECTION 03/14/2023 11:15 EST Temperature 97.6 DegF Temperature Route Oral Pulse Rate 84 bpm Respiratory Rate 18 br/min Systolic Blood Pressure 117 mm Hg Diastolic Blood Pressure 62 mm Hg Blood pressure sites Arm, right Mean Arterial Pressure 80 mm Hg Pulse Pressure 55 mm Hg Oxygen Saturation 96 % Liters per Minute 1 L/min Mode of Delivery (Oxygen) Nasal cannula 03/14/2023 8:12 EST Early Warning Score 2.00 03/14/2023 7:30 EST Temperature 97.3 DegF Temperature Route Oral Pulse Rate 86 bpm Respiratory Rate 19 br/min Systolic Blood Pressure 111 mm Hg Diastolic Blood Pressure 81 mm Hg Blood pressure sites Arm, right Mean Arterial Pressure 91 mm Hg Pulse Pressure 30 mm Hg Oxygen Saturation 96 % Liters per Minute 1 L/min Mode of Delivery (Oxygen) Nasal cannula 03/14/2023 6:41 EST Early Warning Score 2.00 03/14/2023 6:41 EST Early Warning Score 2.00 03/14/2023 6:24 EST Early Warning Score 2.00 03/14/2023 4:31 EST Early Warning Score 2.00 03/14/2023 4:30 EST Temperature 97.8 DegF Temperature Route Oral Pulse Rate 79 bpm Respiratory Rate 18 br/min Systolic Blood Pressure 102 mm Hg Diastolic Blood Pressure 72 mm Hg Blood pressure sites Arm, right Mean Arterial Pressure 82 mm Hg Pulse Pressure 30 mm Hg Oxygen Saturation 99 % Liters per Minute 1 L/min Mode of Delivery (Oxygen) Nasal cannula . Narrative/Incidental Pt sleepy, but able to answer orientation questions appropriately. Pt with normal magnesium and potassium levels, ecg performed SR with 1AVB. Pt drinking, not eating a whole lot. Pt seen by SENIOR CLINICAL STUDY MANAGER, and am waiting communication from them regarding next steps for pt. Pt medically cleared, and SENIOR CLINICAL STUDY MANAGER is doing a bedsearch for pt. Pt is getting discharged and transferred to MHU around 15:00. Discharge Information Case Management Discharge Plan : Case Management Discharge Plan Data 03/07/2023 10:44 EST Discharge Level of Care at Discharge Home/[facility] * Ruby CHAVEZ, Patricia: MODIFY, MODIFY, SIGN, VERIFY, PERFORM Event Display: Progress Note Hospital Authored Date: Patient: JORGE MORA Age: 22 years Sex: Female : 2000 Associated Diagnoses: None Author: Ruby RN, Patricia Findings Problem Related to Alteration in Safety : Alteration in Safety/new 03/13/2023 18:00 EST Alteration in Safety Related to Toxic Ingestion, Suicidal ideation Goals & Outcomes, Safety Pt will remain safe & injury free Interventions, Safety Provide info on community resources for education, support, Provide teaching as needed, Assess family dynamics & refer to counseling as needed, Keep equipment for maintaining patent airway at bedside, Maintain suicide precautions until cleared by psychiatry Goals/Interventions, Safety Yes Safety, Problem Start 03/13/2023 10:06 Reviewed plan with, Safety Patient Patient Progression, Safety Pt progressing according to plan . Nursing Data Cardiac Data. : Cardiac Data. 03/13/2023 17:10 EST Cardiac Rhythm First degree heart block, Normal sinus rhythm monitoring engineer Yes Cardiovascular WNL except . Gastrointestinal Data. : Gastrointestinal Data. 03/13/2023 17:10 EST GI WNL . Genitourinary Data. : Genitourinary Data. 03/13/2023 17:10 EST WNL . HEENT Data. : HEENT Assessment 03/13/2023 17:10 EST HEENT, Adult WNL . Integumentary Data. : Integumentary Data. 03/13/2023 17:10 EST Sensory Perception No impairment Integumentary WNL . Musculoskeletal Data. : Musculoskeletal Data. 03/13/2023 17:10 EST Musculoskeletal Symptoms Weakness Musculoskeletal WNL except . Neurological Data. : Neurological Data. 03/13/2023 22:00 EST Neurological Assessment Status Changes from recorder's assessment Neurological Symptoms Tremors, Weakness or loss of muscle strength Level of Consciousness Lethargy Orientated to person, place, time Person, Place, Time, Event Neurological Comments Pt reports feeling less sleepy , tremors less apparent Neuro WNL except Memory Intact 03/13/2023 17:10 EST Neurological Symptoms Tremors Level of Consciousness Lethargy Tremors Toxic 1 - 10 Pain Scale Score 2 Neuro WNL except Memory Intact . Respiratory/Pulmonary Data. : Respiratory/Pulmonary Data. 03/13/2023 17:10 EST Respiratory Symptoms Dyspnea with exertion Left Upper Lobe Breath Sounds Diminished Right Upper Lobe Breath Sounds Diminished Right Middle Lobe Breath Sounds Diminished Left Lower Lobe Breath Sounds Diminished Right Lower Lobe Breath Sounds Diminished Respiratory WNL except . Vital Signs : VITAL SIGNS SECTION 03/14/2023 0:44 EST Early Warning Score 2.00 03/14/2023 0:44 EST Systolic Blood Pressure 106 mm Hg Diastolic Blood Pressure 60 mm Hg Blood pressure sites Arm, right 03/14/2023 0:07 EST Early Warning Score 3.00 03/14/2023 0:04 EST Early Warning Score 3.00 03/14/2023 0:04 EST Temperature 97.9 DegF Temperature Route Oral Pulse Rate 79 bpm Respiratory Rate 16 br/min Systolic Blood Pressure 94 mm Hg Diastolic Blood Pressure 67 mm Hg Blood pressure sites Arm, right Mean Arterial Pressure 76 mm Hg Pulse Pressure 27 mm Hg Oxygen Saturation 98 % Liters per Minute 1 L/min Mode of Delivery (Oxygen) Nasal cannula (Modified) 03/13/2023 22:18 EST Early Warning Score 2.00 03/13/2023 22:18 EST Early Warning Score 2.00 03/13/2023 19:56 EST Early Warning Score 2.00 03/13/2023 19:50 EST Temperature 97.5 DegF Temperature Route Oral Pulse Rate 79 bpm Respiratory Rate 18 br/min Systolic Blood Pressure 109 mm Hg Diastolic Blood Pressure 66 mm Hg Blood pressure sites Arm, right Mean Arterial Pressure 80 mm Hg Pulse Pressure 43 mm Hg Oxygen Saturation 99 % Liters per Minute 1 L/min Mode of Delivery (Oxygen) Nasal cannula . Narrative/Incidental Pt is A&Ox4, reports chronic pain in knees and legs. Lethargic throughout evening, arouses appropriately to voice. Reports they feel fatigued and weak reports feeling less fatigued on repeat assessments. Pt has tremors in hands and legs becoming milder throughout evening. On potline monitor NSR with 1st degree AVB 90's. EKG shows improving QTC. Labs WNL. Maintained on 1LNC oxygen due tosuspected MARY, oxygen level 99%. Update provided to poison control at 1700 and requested changes toPOC provided to ROSEMARY Castellon. Poison control reports MD discretion to replace K with K level of 3.9. ROSEMARY Castellon made aware and no replacement ordered. Pt tolerating regular diet w/o n/v/d. Urinating in bedside commode w/o difficulty. Up with 1-person assist. Pt denies thoughts of harming self. ConstantCompanion at bedside for safety. Fall precautions in place. . Note * Neipp RN, Araceli: PERFORM Event Display: Discharge/Transfer Note Hospital Authored Date: [id number] Nursing Discharge Note Entered On: 03/14/2023 18:25 EST Performed On: 03/14/2023 18:24 EST by Araceli Graves RN Nursing Discharge Note 2 Discharge Time : 03/14/2023 18:24 EST Discharge Level of Care at Discharge : Home/[facility] Patient Left Unit Via : Wheelchair Patient Accompanied Off Unit with : Other: MHU staff member DC Instructions Provided & Signed by Pt : Yes Patient Understands D/C Instructions : Yes Patient Instructions Discharge Signed : Yes Did Pt have Specialty Bed or Wound Vac : No Araceli Graves RN - 03/14/2023 18:24 EST * Landen Trujillo DO: PERFORM Event Display: Discharge/Transfer Note Hospital Authored Date: [id number] Patient: ??MORGAN, JORGE ? Age:??22 Years?Sex:??Female?:??2000?? Patient Information Discharge Location: [facility] Primary Care Physician: Nikki Hariston NP Admit Date/Time: 03/12/23 20:50 Discharge Disposition Discharge Disposition: ?? Discharge Diagnosis Alcohol use (Z78.9) Borderline personality disorder (F60.3) Depression (F32.A) NATHAN (generalized anxiety disorder) (F41.1) History of ADHD (Z86.59) Severe obesity (E66.01) Transgender (Z78.9) Major depressive disorder, recurrent (F33.9) Medication overdose (T50.901A) Suicide attempt (T14.91XA) ?? _ Discharge Medications Haloperidol (haloperidol 5 mg oral tablet)?5?Milligram?By Mouth?3 times a day?as needed?Agitation Prazosin (prazosin 1 mg oral capsule)?1?Milligram?By Mouth?Daily at bedtime ? Quality Measures Tobacco Use Treatment:? Allergies Allergies ?(Active and Proposed Allergies Only) Thorazine? (Severity: Unknown severity, Onset: Unknown) ?Reactions: Skin rash Geodon? (Severity: Unknown severity, Onset: Unknown) ?Reactions: full body tremors Trileptal? (Severity: Unknown severity, Onset: Unknown) ? Hospital Course ??22 years old Female with past medical history significant for alcohol use disorder, borderline personality disorder, anxiety and depression who presented with a suicide attempt of intentional overdose of around 200 pills (duloxetine, haloperidol, prazosin, topiramate and Concerta) activated charcoal lavage briefly required ICU admission for closer monitoring and now downgraded to acute [facility] rehab. ?? Alcohol use (Z78.9):??. Borderline personality disorder (F60.3):??. Depression (F32.A):??. NATHAN (generalized anxiety disorder) (F41.1):??. History of ADHD (Z86.59):??. Severe obesity (E66.01):??. Transgender (Z78.9):??. Major depressive disorder, recurrent (F33.9):??. Medication overdose (T50.901A):??. Suicide attempt (T14.91XA):??. ? Patient was closely monitored on [facility] with a Constant c s s representative and Suicide precautions Cardiac telemetry monitoring??and repeat EKGs revealed no significant arrhythmia. ??QTc is okay Basic labs are unremarkable They??had some IV fluids They are now tolerating diet They deny headache??seizure??nausea vomiting diarrhea??chest pain or shortness of breath Their??medications had been held??on admission and psychiatry will evaluate for proper timing in terms of starting those back up again. I did put the prazosin??and as needed Haldol on for now??and will defer to psychiatry for starting back up on the other medications Case reviewed personally with fitter's assistant nurse manager technical services??and it is noted that the patient requires constant c s s representative at all times??and have information was conveyed??by nursing to the MHU team who knows??them well ?? Obstructive??sleep apnea/obesity hypoventilation syndrome On 1 L oxygen??while sleeping but resp status and oxygenation stable?? Objective Assessment and Plan Discharge Planning:? Measurements?? Height: 167 cm (03/14/23) Weight: 152.2 kg (03/13/23) Dry Weight: 147.45 kg (03/12/23) Body Mass Index:??54.57 kg/m2??Critical (03/12/23) ? Vital Signs?? Temperature: 97.6 DegF (03/14/23 11:15:00) Temperature Route: Oral (03/14/23 11:15:00) Pulse Rate: 84 bpm (03/14/23 11:15:00) Respiratory Rate: 18 br/min (03/14/23 11:15:00) Systolic Blood Pressure: 117 mm Hg (03/14/23 11:15:00) Diastolic Blood Pressure: 62 mm Hg (03/14/23 11:15:00) Blood pressure sites: Arm, right (03/14/23 11:15:00) Mean Arterial Pressure: 80 mm Hg (03/14/23 11:15:00) Pulse Pressure: 55 mm Hg (03/14/23 11:15:00) Oxygen Saturation: 96 % (03/14/23 11:15:00) Liters per Minute: 1 L/min (03/14/23 11:15:00) Mode of Delivery (Oxygen): Nasal cannula (03/14/23 11:15:00) Early Warning Score: 2 (03/14/23 12:15:54) ? . Physical Exam Alert and oriented x 3 in no distress Regular rate and rhythm with no rub Abdomen soft nontender obese nondistended Lower extremities warm globally perfused Cranial nerves II through XII are intact 5 out of 5 power in upper and lower extremities bilateral No spontaneous tremors or myoclonus Pending Results No Pending Results Home Health Face to Face ^HomeHealthFTF Results Discharge Labs BLOOD COUNT & DIFF WBC 6.2 k/mm3 ()?? 03/14/2023 05:31 RBC 4.61 m/mm3 ()?? 03/14/2023 05:31 Hgb 12.9 Gm/dL ()?? 03/14/2023 05:31 Hct 41.1 % ()?? 03/14/2023 05:31 MCV 89.2 femtoliters ()?? 03/14/2023 05:31 MCH 28.0 pg ()?? 03/14/2023 05:31 MCHC 31.4 g/dL (Low)?? 03/14/2023 05:31 Platelet Count 161 k/mm3 ()?? 03/14/2023 05:31 RDW-SD 45.0 femtoliters ()?? 03/14/2023 05:31 MPV 12.7 femtoliters (High)?? 03/14/2023 05:31 Nucleated RBC (Automated) 0.0 #/100 WBC'S ()?? 03/14/2023 05:31 Abs. NRBC 0.0 k/mm3 ()?? 03/14/2023 05:31 Abs. Neut 4.4 k/mm3 ()?? 03/12/2023 18:55 Abs. Lymph 2.1 k/mm3 ()?? 03/12/2023 18:55 Abs. Sac 0.8 k/mm3 ()?? 03/12/2023 18:55 Abs. Eo 0.1 k/mm3 ()?? 03/12/2023 18:55 Abs. Baso 0.1 k/mm3 ()?? 03/12/2023 18:55 Neut % 59.1 % ()?? 03/12/2023 18:55 Lymph % 28.2 % ()?? 03/12/2023 18:55 Sac % 10.1 % ()?? 03/12/2023 18:55 Eos % 1.8 % ()?? 03/12/2023 18:55 Baso % 0.7 % ()?? 03/12/2023 18:55 Imm Gran 0.1 % ()?? 03/12/2023 18:55 Abs. Imm Gran 0.0 k/mm3 ()?? 03/12/2023 18:55 ?? CHEM GENERAL Sodium 140 mmol/L ()?? 03/14/2023 05:31 Potassium 4.0 mmol/L ()?? 03/14/2023 05:31 Chloride 112 mmol/L (High)?? 03/14/2023 05:31 Bicarbonate Level 20 mmol/L (Low)?? 03/14/2023 05:31 Anion Gap 8 ()?? 03/14/2023 05:31 Glucose Level 115 mg/dL (High)?? 03/12/2023 18:55 BUN 8 mg/dL ()?? 03/14/2023 05:31 Creatinine-Blood 0.7 mg/dL ()?? 03/14/2023 05:31 Estimated GFR Creatinine 121 ML/MIN/1.73 M2 ()?? 03/14/2023 05:31 Calcium 9.2 mg/dL ()?? 03/12/2023 18:55 Calcium, Ionized pH Corrected 1.18 mmol/L ()?? 03/13/2023 04:18 Phosphorus 2.8 mg/dL ()?? 03/13/2023 04:18 Magnesium 1.9 mg/dL ()?? 03/14/2023 05:31 Protein, Total 6.9 Gm/dL ()?? 03/12/2023 18:55 Albumin 4.1 Gm/dL ()?? 03/12/2023 18:55 AG Ratio 1.5 ()?? 03/12/2023 18:55 Alkaline Phosphatase 82 units/L ()?? 03/12/2023 18:55 AST (SGOT) 21 units/L ()?? 03/12/2023 18:55 ALT (SGPT) 26 units/L ()?? 03/12/2023 18:55 Bilirubin, Total 0.2 mg/dL ()?? 03/12/2023 18:55 ?? ENDOCRINE/TUMOR MARKER TSH 1.87 uIU/mL ()?? 03/12/2023 18:55 Blood <1 mIU/mL ()?? 03/12/2023 18:55 ?? HEME OTHER Hold Blue Top SPECIMEN DISCARDED AFTER 4 HOURS. ()?? 03/12/2023 18:55 ? TOXICOLOGY/TDM Ethanol, Serum or Plasma NONE DETECTED mg/dL ()?? 03/12/2023 18:55 Salicylate Level 0.3 mg/dL (Low)?? 03/12/2023 18:55 Barbiturate Screen, Urine NONE DETECTED ()?? 03/13/2023 06:03 Cannabinoid Screen, Urine NONE DETECTED ()?? 03/13/2023 06:03 Cocaine Metabolite Screen, Urine NONE DETECTED ()?? 03/13/2023 06:03 Benzodiazepine Screen, Urine NONE DETECTED ()?? 03/13/2023 06:03 Amphetamine Screen, Urine NONE DETECTED ()?? 03/13/2023 06:03 Opiate Screen, Urine NONE DETECTED ()?? 03/13/2023 06:03 Acetaminophen Level <5 mg/L (Low)?? 03/12/2023 18:55 ? UA/URINALYSIS Appear/Color, Urine YELLOW ()?? 03/13/2023 06:03 Clarity CLEAR (N)?? 03/13/2023 06:03 Specific Magnolia, Urine >1.030 (High)?? 03/13/2023 06:03 pH, Urine 6.5 ()?? 03/13/2023 06:03 Albumin, Urine NEGATIVE (N)?? 03/13/2023 06:03 Glucose, Urine NEGATIVE (N)?? 03/13/2023 06:03 Ketones, Urine NEGATIVE (N)?? 03/13/2023 06:03 Bilirubin, Urine NEGATIVE (N)?? 03/13/2023 06:03 Hemoglobin, Urine TRACE (Abnormal)?? 03/13/2023 06:03 Nitrite, Urine NEGATIVE (N)?? 03/13/2023 06:03 Leukocyte, Urine NEGATIVE (N)?? 03/13/2023 06:03 Urobilinogen NORMAL mg/dL (N)?? 03/13/2023 06:03 WBC's, Urine <1 /HPF ()?? 03/13/2023 06:03 RBC's, Urine 12 /HPF (High)?? 03/13/2023 06:03 Mucus SLIGHT /LPF ()?? 03/13/2023 06:03 Hold Urine Culture Testing available 48 hours from time of collection. ()?? 03/13/2023 06:03 ?? URINE OTHER Est Creatinine Clearance 114.88 mL/min ()?? 03/13/2023 10:30 ? VIROLOGY Influenza A PCR NEGATIVE ()?? 03/12/2023 18:18 Influenza B PCR NEGATIVE ()?? 03/12/2023 18:18 RSV PCR NEGATIVE ()?? 03/12/2023 18:18 COVID-19 PCR Specimen Source NASAL ()?? 03/12/2023 18:18 COVID-19 PCR Result NEGATIVE ()?? 03/12/2023 18:18 ? _ 40 minutes spent on discharge * Araceli Graves RN: PERFORM Event Display: Patient Education/Instruction Authored Date: [id number] Inpatient Adult Discharge Instructions. [address] [address] Name: JORGE MORA : 2000?? Visit: 03/12/2023 20:50?? Current Date: 03/14/2023 15:35 ?? Account: [id number]?? Inpatient Adult Discharge Instructions We would like [...] and their families. Surveys are administered by [employer] ?? If further treatment with your primary care physician or another doctor is recommended, it is important for you to keep the appointment. Call your primary care physician or return to the Emergency Department immediately if your condition worsens, fails to improve, or new symptoms develop. If you need to find a doctor, you can call [facility] Link for a referral at [phone] or toll free at [phone] ([phone]) or log in to [email or web address].. ?? [facility], in keeping with [facility] guidance, no longer requires face masks for staff, patientsor visitors in most situations. Similiar to time spent indoors at other locations, there is the chance that you were exposed to repiratory viruses during your time with us (such as flu or COVID-19). If you develop symptoms concerning for a viral respiratory infection, please seek testing (and treatment if indicated) from your medical provider or home test kit. ?? You can view and manage your care through the patient portal or by using a health care sharonda of your choosing. [employer] is a website that allows you to securely view your medical information including your hospital discharge summary, office visit summaries, medications and follow-up visits. You can also request appointments, renew medications, and request access to your medical information using a health care sharonda of your choosing, or just ask a question. You can enroll at [email or web address] or register during your next office visit. You have been discharged from [facility], Patient Care Unit: [id number]??. If you have any questions regarding these instructions, including results of studies pending, afteryou leave, please call us and we will be happy to assist you 04/09. [facility] Your Care Team Attending Physician Landen Trujillo DO?? Consulting Providers Landen Trujillo DO?? Discharging Providers Landen Trujillo DO Reason for Your Visit OD, SI?? Your Diagnosis Alcohol use Borderline personality disorder Depression NATHAN (generalized anxiety disorder) History of ADHD Severe obesity Transgender Major depressive disorder, recurrent Intentional ingestion - overdose Tests Performed Below is a partial list of the tests performed during your hospitalization. You may have had other tests and procedures not included in this list. Please discuss all test results with your provider. Acetaminophen Level Alcohol Level Amphetamine Urine Screen Aspirin Level Barbiturate Urine Screen Benzodiazepine Urine Screen BUN Cannabinoid Urine Screen CBC CBC w/ Differential Cocaine Urine Screen Comprehensive Metabolic Panel COVID-19, RSV, and Flu A/B, Rapid PCR Creatinine Electrolytes HOLD BLUE TUBE Ionized Calcium Lytes Magnesium Level Opiate Screen Urine Phosphorus Level Serum Quantitative TSH with T4 Reflex (Adults Only) Urinalysis w/hold for Urine Culture URINE MICROSCOPIC No tests performed during this visit.?? Primary Care Provider Yovanny RILEY, Nikki? Discharge Vitals Temperature: 97.6 DegF Height: 167 cm Pulse Rate: 84 bpm Weight: 152.2 kg Respiratory Rate: 18 br/min Body Mass Index:??54.57 kg/m2??Critical Systolic Blood Pressure: 117 mm Hg Body surface area: 2.66 Diastolic Blood Pressure: 62 mm Hg ?? Oxygen Saturation: 96 % ?? Studies Pending All studies ordered during this hospital stay have been completed unless listed below. Please discuss all pending results with your provider listed above in these instructions. ?? No incomplete studies found?? What to do next Instructions From Your Doctor ?? Orders? 03/14/23 14:53:00 EST?? Discharge Medications JORGE MORA :2000 Visit Date:03/12/2023 Medications: Please continue your medications until treatment is completed or stopped by your provider. Medications not listed below should be discontinued. Discuss any questions related to medications with your provider. What How Much When Instructions Next Dose Unchanged Haloperidol (haloperidol 5 mg oral tablet) 5 Milligram Oral 3 times a day as needed for Agitation Unchanged Prazosin (prazosin 1 mg oral capsule) 1 Milligram Oral Daily at Bedtime ?? What How Much When Comments Stop Taking Duloxetine (duloxetine 60 mg oral enteric coated capsule) 60 Milligram Oral Daily Stop Taking Methylphenidate (methylphenidate 27 mg oral tablet, extended release) 27 Milligram Oral Daily Stop Taking Topiramate (topiramate 25 mg oral tablet) 75 Milligram Oral Daily at Bedtime Prescription Given During Visit No new medications prescribed at time of discharge.?? Laboratory Results Below is a partial list of the most recent Laboratory test results done prior to this discharge. You may have had other tests and procedures not included in this list. Please discuss all test resultswith your provider. Est Creatinine Clearance - 114.88 mL/min (03/13/2023) Acetaminophen Level (03/12/2023) ? ?Acetaminophen Level - <5 mg/L Alcohol Level (03/12/2023) ???Ethanol, Serum or Plasma - NONE DETECTED Amphetamine Urine Screen (03/13/2023) ???Amphetamine Screen, Urine - NONE DETECTED Aspirin Level (03/12/2023) ???Salicylate Level - 0.3 mg/dL Barbiturate Urine Screen (03/13/2023) ???Barbiturate Screen, Urine - NONE DETECTED Benzodiazepine Urine Screen (03/13/2023) ???Benzodiazepine Screen, Urine - NONE DETECTED BUN (03/14/2023) ???BUN - 8 mg/dL Cannabinoid Urine Screen (03/13/2023) ???Cannabinoid Screen, Urine - NONE DETECTED CBC (03/14/2023) ???WBC - 6.2 k/mm3???RBC - 4.61 m/mm3???Hgb - 12.9 Gm/dL???Hct - 41.1 %???MCV - 89.2 femtoliters???MCH - 28.0 pg???MCHC - 31.4 g/dL???Platelet Count - 161 k/mm3???RDW-SD - 45.0 femtoliters???MPV - 12.7 femtoliters???Nucleated RBC (Automated) - 0.0 #/100 WBC'S???Abs. NRBC - 0.0 k/mm3 CBC w/ Differential (03/12/2023) ???WBC - 7.4 k/mm3???RBC - 4.86 m/mm3???Hgb - 13.6 Gm/dL???Hct - 41.4 %???MCV - 85.2 femtoliters???MCH - 28.0 pg???MCHC - 32.9 g/dL???Platelet Count - 167 k/mm3???RDW-SD - 40.9 femtoliters???MPV - 12.4 femtoliters???Nucleated RBC (Automated) - 0.0 #/100 WBC'S???Abs. NRBC - 0.0 k/mm3???Abs. Neut - 4.4 k/mm3???Abs. Lymph - 2.1 k/mm3???Abs. Sac - 0.8 k/mm3???Abs. Eo - 0.1 k/mm3???Abs. Baso - 0.1 k/mm3???Neut % - 59.1 %???Lymph % - 28.2 %???Sac % - 10.1 %???Eos % - 1.8 %???Baso % - 0.7 %???Imm Gran - 0.1 %???Abs. Imm Gran - 0.0 k/mm3 Cocaine Urine Screen (03/13/2023) ???Cocaine Metabolite Screen, Urine - NONE DETECTED Comprehensive Metabolic Panel (03/12/2023) ???Sodium - 138 mmol/L???Potassium - 3.8 mmol/L???Chloride - 107 mmol/L???Bicarbonate Level - 19 mmol/L???Anion Gap - 12???Glucose Level - 115 mg/dL???BUN - 13 mg/dL???Creatinine-Blood - 0.7 mg/dL???Estimated GFR Creatinine - 121 ML/MIN/1.73 M2???Calcium - 9.2 mg/dL???Protein, Total - 6.9 Gm/dL???Al bumin - 4.1 Gm/dL???AG Ratio - 1.5???Alkaline Phosphatase - 82 units/L???AST (SGOT) - 21 units/L???ALT (SGPT) - 26 units/L???Bilirubin, Total - 0.2 mg/dL COVID-19, RSV, and Flu A/B, Rapid PCR (03/12/2023) ???Influenza A PCR - NEGATIVE???Influenza B PCR - NEGATIVE???RSV PCR - NEGATIVE???COVID-19 PCR Specimen Source - NASAL???COVID-19 PCR Result - NEGATIVE Creatinine (03/14/2023) ???Creatinine-Blood - 0.7 mg/dL???Estimated GFR Creatinine - 121 ML/MIN/1.73 M2 Electrolytes (03/14/2023) ???Sodium - 140 mmol/L???Potassium - 4.0 mmol/L???Chloride - 112 mmol/L???Bicarbonate Level - 20 mmol/L???Anion Gap - 8 HOLD BLUE TUBE (03/12/2023) ???Hold Blue Top - SPECIMEN DISCARDED AFTER 4 HOURS. Ionized Calcium (03/13/2023) ???Calcium, Ionized pH Corrected - 1.18 mmol/L Lytes (03/13/2023) ???Sodium - 140 mmol/L???Potassium - 4.0 mmol/L???Chloride - 112 mmol/L???Bicarbonate Level - 19 mmol/L???Anion Gap - 9 Magnesium Level (03/14/2023) ???Magnesium - 1.9 mg/dL Opiate Screen Urine (03/13/2023) ???Opiate Screen, Urine - NONE DETECTED Phosphorus Level (03/13/2023) ???Phosphorus - 2.8 mg/dL Serum Quantitative (03/12/2023) ? ?Blood - <1 mIU/mL TSH with T4 Reflex (Adults Only) (03/12/2023) ???TSH - 1.87 uIU/mL Urinalysis w/hold for Urine Culture (03/13/2023) ? ?Appear/Color, Urine - YELLOW? ?Clarity - CLEAR? ?Specific Magnolia, Urine - >1.030? ?pH, Urine- 6.5???Albumin, Urine - NEGATIVE???Glucose, Urine - NEGATIVE???Ketones, Urine - NEGATIVE???Bilirubin, Urine - NEGATIVE???Hemoglobin, Urine - TRACE???Nitrite, Urine - NEGATIVE???Leukocyte, Urine - NEG ATIVE???Urobilinogen - NORMAL???Hold Urine Culture - Testing available 48 hours from time of collection. URINE MICROSCOPIC (03/13/2023) ? ?WBC's, Urine - <1 /HPF? ?RBC's, Urine - 12 /HPF? ?Mucus - SLIGHT Allergies (NKA means No Known Allergies) Geodon??(full body tremors) Thorazine??(Skin rash) Trileptal Problems Active Problems??(11) Alcohol use?? Borderline personality disorder?? Depression?? NATHAN (generalized anxiety disorder)?? History of ADHD?? History of COVID-19?? History of suicide attempt?? Major depressive disorder, recurrent?? Severe obesity?? Tobacco dependence?? Transgender?? Education Materials Below is the list of Educational Leaflet Providered with your Discharge Instructions. Valuables and Belongings I fully understand and agree that [facility] accepts no responsibility for all my personal [...] to send valuables and belongings home. ?? Review of Valuable and Belonging List: With witness Date for Pt to Sign Valuables/Belongings: 03/13/23 11:16:00 ?? Other Discharge Information ? Pulmonary Rehab Status?? Pulmonary Rehab Discharge Status?? Respiratory Rate: 18 br/min ? Common Emergency Awareness Tips IS IT [...] are strongly encouraged to quit. Please call [facility] Link at [phone] or [phone] ([phone]) or log in to [email or web address] for referrals to smoking cessation programs. ?? 939 Suicide & Crisis Lifeline is available 04/09 if you or someone you know needs to find a reason to keep living. By calling 647 you'll be connected to a skilled, trained counselor at a crisis center in your area. INPATIENT DISCHARGE INSTRUCTIONS SIGNATURE GIDEON MORGAN JORGE Location:[facility] Registration Date and Time:03/12/2023 20:50 EST Primary Care Physician: Nikki Hairston NP, Attending Physician: Landen Trujillo DO, I JORGE MORA, have received the above patient education materials/instructions and have verbalizedunderstanding. If ambulance or transport services are being used I further acknowledge being given a choice of service. ?? If you need to contact me, please call me at this number: . Patient/Monitoring Engineer Name: Patient/Monitoring Engineer Signature: Relationship to Patient: Witness Name/Signature: Date: Patient Care team information Care Team Personnel Name: Garcia Baez RN Position: [facility] RN Member Role: Primary Care Nurse Name: Diamond Mancini RN Position: S RN Member Role: Primary Care Nurse Name: Leah Almonte RN Position: S RN Member Role: Primary Care Nurse Name: Natasha Dickey RN Position: S RN Member Role: Primary Care Nurse Name: Kellee Garvin RN Position: [facility] RN Member Role: Primary Care Nurse Name: Maegan Diaz RN Position: S RN Member Role: Primary Care Nurse Name: Genesis Lea RN Position: S RN Member Role: Primary Care Nurse Name: Nikki Hairston NP Position: [facility] PCO Associate Professional Member Role: PCP Address: Address: [address] [place] [id number]- Name: Alejandra Gilbert RN Position: S RN Member Role: Primary Care Nurse Name: Blaire Solis RN Position: [facility] RN Member Role: Primary Care Nurse Name: Zara Colon RN Position: [facility] RN Supv Member Role: Primary Care Nurse Name: Stefani Pinto RN Position: S RN Member Role: Primary Care Nurse Name: Araceli Quevedo RN Position: S RN Member Role: Primary Care Nurse Name: Fatoumata Loyd RN Position: S RN Member Role: Primary Care Nurse Name: Melissa Stapleton RN Position: [facility] RN Member Role: Primary Care Nurse Name: Ligia Stapleton RN Position: [facility] RN Member Role: Primary Care Nurse Name: Melissa Davison RN Position: [facility] RN Member Role: Primary Care Nurse Name: Trinidad Ordonez RN Position: [facility] RN Member Role: Primary Care Nurse Name: Mariaelena Collazo RN Position: [facility] RN Member Role: Primary Care Nurse Name: Beatrice Pisano RN Position: [facility] RN Member Role: Primary Care Nurse Name: Shankar Man Position: [facility] RN Member Role: Primary Care Nurse Name: Nikki Croft RN Position: [facility] RN Member Role: Primary Care Nurse Name: John Cuellar RN Position: [facility] RN Member Role: Primary Care Nurse Name: Christos Godoy RN Position: [facility] RN Member Role: Primary Care Nurse Care Team Related Persons Name: INTERMEDIATE JAMB CUTTERYENI Address: [address] [place] [address] Name: YULIYA MORA Address: home [address] [place] [address] Name: SUNDAY MORA Address: [place] [address]
--- OUTSIDE RECORDS SUMMARY | 2023-06-07 19:08 | XMS_ITS | Continuity of Care Document ---
Author Organization [facility] Address [address] [place] [address]- Care Team Providers Care Jewel Setter Name Role Phone Bela Dumont MD Primary Care Physician Encounter [facility] Date(s): 05/02/19 - 05/02/[address] [address]- [facility] [phone] Encounter Diagnosis Anhedonia(Final) - 05/02/19 Depression(Final) - 05/02/19 Discharge Disposition: Transfer to [facility] Facility Attending Physician: Martin Villatoro MD Admitting Physician: Martin Villatoro MD Referring Physician: Not on Staff, Referring MD Allergies, Adverse Reactions, Alerts Substance Reaction Severity Status NKA Active Medications Ativan 1 mg oral tablet 1 tablet = 1 mg, By Mouth, 2 times a day, PRN as needed for anxiety, 0 Refills, Maintenance, 05/02/19 12:15:00 EDT, Tablet Start Date: 05/02/19 Status: Ordered benztropine 1 mg oral tablet See Instructions, 2 tablets PO QAM and 1 tablet PO QHS, # 90 tablet, Refills 0, Tot. Refills 0, Maintenance, 04/30/19 13:49:00 EDT, Instructions Replace Required Details, Route to Pharmacy Electronically, [facility]/pharmacy #[id number], 175, cm, 04/30/19 12:12:00... Start Date: 04/30/19 Status: Ordered buPROPion 100 mg/12 hours (SR) oral tablet, extended release 1 tablet = 100 mg, By Mouth, Daily before dinner, # 30 tablet, 0 Refills, Maintenance, 04/30/19 13:51:00 EDT, SR Tablet, [facility]/pharmacy #[id number], 175, cm, 04/30/19 12:12:00 EDT, Height, 107.27, kg, 03/18/19 12:26:00 EST, Dry Weight Start Date: 04/30/19 Status: Ordered buPROPion 200 mg/12 hours (SR) oral tablet, extended release 1 tablet = 200 mg, By Mouth, Daily in AM, # 30 tablet, 0 Refills, Maintenance, 04/30/19 13:51:00 EDT, ER Tablet, [facility]/pharmacy #[id number], 175, cm, 04/30/19 12:12:00 EDT, Height, 107.27, kg, 03/18/19 12:26:00 EST, Dry Weight Start Date: 04/30/19 Status: Ordered escitalopram 20 mg oral tablet 1 tablet = 20 mg, By Mouth, Daily, # 30 tablet, 0 Refills, Maintenance, 04/30/19 13:47:00 EDT, Tablet, [facility]/pharmacy #[id number], 175, cm, 04/30/19 12:12:00 EDT, Height, 107.27, kg, 03/18/19 12:26:00 EST, Dry Weight Start Date: 04/30/19 Status: Ordered haloperidol 5 mg oral tablet See Instructions, 2 tablets PO QAM and 1 tablet PO QHS, # 90 tablet, Refills 0, Tot. Refills 0, Maintenance, 04/30/19 13:53:00 EDT, Instructions Replace Required Details, Route to Pharmacy Electronically, [facility]/pharmacy #[id number], 175, cm, 04/30/19 12:12:00... Start Date: 04/30/19 Status: Ordered lamotrigine 100 mg oral tablet 250 mg, 2.5, tablet, By Mouth, Daily at bedtime, # 75 tablet, Refills 0, Tot. Refills 0, Maintenance, 04/30/19 13:48:00 EDT, Route to Pharmacy Electronically, [facility]/pharmacy #[id number], 175, cm, 04/30/19 12:12:00 EDT, Height, 107.27, kg, 03/18/19 12:26:00 ES... Start Date: 04/30/19 Status: Ordered traZODone 100 mg oral tablet 100 mg, 1, tablet, By Mouth, Daily at bedtime, # 30 tablet, Refills 0, Tot. Refills 0, Maintenance,04/30/19 13:49:00 EDT, Route to Pharmacy Electronically, [facility]/pharmacy #[id number], 175, cm, 04/30/19 12:12:00 EDT, Height, 107.27, kg, 03/18/19 12:26:00 EST,... Start Date: 04/30/19 Status: Ordered Problem List Condition Effective Dates Status Health Status Inform ant Depression(Confirmed) Active Tobacco dependence(Confirmed) Active Vital Signs Most recent to oldest [Reference Range]: 1 2 Height 168 cm (05/02/19 2:05 PM) 168 cm (05/02/19 12:11 PM) Weight 100 kg (05/02/19 2:05 PM) 100 kg (05/02/19 12:11 PM) Oxygen Saturation [94-100 %] 97 % (05/02/19 2:05 PM) Pulse Rate [55-90 bpm] 76 bpm (05/02/19 2:05 PM) Body Mass Index [18.5-24.99] 35.43 *>HHI* (05/02/19 2:05 PM) Blood Pressure [90-138/55-84 mm Hg] 107/ 75mm Hg (05/02/19 2:05 PM) Respiratory Rate [16-30 br/min] 18 br/mi n (05/02/19 5:24 PM) 16 br/min (05/02/19 2:05 PM) Mode of Delivery (Oxygen) Room air (05/02/19 2:05 PM) Blood pressure sites Arm, left (05/02/19 2:05 PM) Dry Weight 100 kg (05/02/19 2:05 PM) 100 kg (05/02/19 12:11 PM) Social History Social History Type Response Smoking Status 10 or more cigarette s (1/2 pack or more)/day in last 30 days entered on: 09/07/18 Sex
--- OUTSIDE RECORDS SUMMARY | 2023-06-07 19:08 | XMS_ITS | Continuity of Care Document ---
Author Organization [facility] Address [address] [place] [address]- Care Team Providers Care Professor Of Finance Name Role Phone Katie RILEY, Narda Fonseca Primary Care Physici an [place] [facility] [place] - 04/13/[address] [address]- Discharge Disposition: A-D/C Home Attending Physician: Carter Shen MD Admitting Physician: Carter Shen MD Referring Physician: Not on Staff, Referring [...] 1 Refills, Maintenance, 11/15/20 15:51:00 EDT, Tablet, [id number] Partial fill upon patient request if the prescription is for a schedule II opioid drug., 168, cm,... Start Date: 11/15/20 Status: Ordered chlorproMAZINE 50 mg oral tablet = 50 mg, By Mouth, 3 times a day, # 90 tablet, 1 Refills, Maintenance, 11/15/20 15:50:00 EDT, Tablet, [id number], Partial fill upon patient request if the prescription is for a schedule II opioid drug., 168, cm, 11/15/20 9:15:0... Start Date: 11/15/20 Status: Ordered Detrol LA 4 mg oral capsule, extended release 1 capsule = 4 mg, By Mouth, Daily, # 30 capsule, 3 Refills, Maintenance, 12/07/20 11:25:00 EDT, CR Capsule, [facility]-[id number], Partial fill upon patient request if the prescription is for a schedule II opioid drug., 167, cm, 12/07/20... Start Date: 12/07/20 Status: Ordered hydrOXYzine pamoate 50 mg oral capsule = 50 mg, By Mouth, Every 4 hours, PRN Anxiety, # 90 capsule, 1 Refills, Maintenance, 11/15/20 15:51:00 EDT, Capsule, [facility]-[id number], Partial fill upon patient request if the prescription is for a schedule II opioid drug., 168, cm,... Start Date: 11/15/20 Status: Ordered Ibuprofen Refills 0, Maintenance, 03/17/21 10:50:00 EST, Partial fill upon patient request if the prescription is for a schedule II opioid drug. Start Date: 03/17/21 Status: Ordered ibuprofen 400 mg oral tablet 400 mg, 1, tablet, By Mouth, Every 6 hours, PRN, # 12 tablet, Refills 0, Tot. Refills 0, Acute 04/15/21 22:34:00 EST, for fever, 04/12/21 22:34:00 EST, Route to Pharmacy Electronically, [facility]-[id number], Partial fill upon patient req... Start Date: 04/12/21 Stop Date: 04/15/21 Status: Ordered lithium 300 mg oral tablet, extended release 2 tablet = 600 mg, By Mouth, 2 times a day, # 120 tablet, 1 Refills, Maintenance, 11/15/20 15:50:00EDT, ER Tablet, [facility]- [id number], Partial fill upon patient request if the prescription is for a schedule II opioid drug., 168, cm, 1... Start Date: 11/15/20 Status: Ordered prazosin 2 mg oral capsule 1 capsule = 2 mg, By Mouth, Daily at bedtime, takes with 5 mg prazosin, # 30 capsule, 1 Refills, Maintenance, 11/15/20 15:50:00 EDT, Capsule, [facility]-[id number], Partial fill upon patient request if the prescription is for a schedule I... Start Date: 11/15/20 Stop Date: 01/14/21 Status: Ordered prazosin 5 mg oral capsule 5 mg, 1, capsule, By Mouth, Daily at bedtime, # 30 capsule, Refills 1, Tot. Refills 1, Maintenance,11/15/20 15:50:00 EDT, Route to Pharmacy Electronically, [facility]-[id number], Partial fill upon patient request if the prescription is f... Start Date: 11/15/20 Stop Date: 01/14/21 Status: Ordered PROzac 40 mg oral capsule 1 capsule = 40 mg, By Mouth, Daily, # 30 capsule, 1 Refills, Maintenance, 11/15/20 15:50:00 EDT, Capsule, [facility]-[id number], Partial fill upon patient request if the prescription is for a schedule II opioid drug., 168, cm, 11/15/20 9:... Start Date: 11/15/20 Status: Ordered traZODone 150 mg oral tablet 1 tablet = 150 mg, By Mouth, Daily at bedtime, # 30 tablet, 0 Refills, Maintenance, 11/15/20 15:50:00 EDT, Tablet, [facility]-[id number], Partial fill upon patient request if the prescription is for a schedule II opioid drug., 168, cm, 10... Start Date: 11/15/20 Status: Ordered Problem List Condition Effective Dates Status Health Status Inform ant Depression(Confirmed) Active Severe obesity(Confirmed) Active Tobacco dependence(Confirmed) Active Vital Signs Most recent to oldest [Reference Range]: 1 Height 168 cm (04/13/21 4:38 PM) Weight 140.9 kg (04/13/21 4:38 PM) Oxygen Saturation [94-100 %] 97 % (04/13/21 4:38 PM) Pulse Rate [55-90 bpm] 84 bpm (04/13/21 4:38 PM) Blood Pressure [90-138/55-84 mm Hg] 121/ 85mm Hg (04/13/21 4:38 PM) Respiratory Rate [16-30 br/min] 16 br/mi n (04/13/21 4:38 PM) Temperature [96.8-100.4 DegF] 98.3 DegF (04/13/21 4:38 PM) Mode of Delivery (Oxygen) Room air (04/13/21 4:38 PM) Blood pressure sites Arm, left (04/13/21 4:38 PM) Temperature Route Temporal (04/13/21 4:38 PM) Dry Weight 140.9 kg (04/13/21 4:38 PM) Social History Social History Type Response Smoking Status 10 or more cigarette s (1/2 pack or more)/day in last 30 days entered on: 12/11/20 Sex
--- OUTSIDE RECORDS SUMMARY | 2023-06-07 19:08 | XMS_ITS | Continuity of Care Document ---
Author Organization [facility] Address [address] [place] [address]- Care Team Providers Care Filler Shredder Name Role Phone Katie RILEY, Narda Fonseca Primary Care Physici an [place] [facility] [place] 05/22/20 - 05/24/20 [facility] [address] [place] [address]- Discharge Disposition: Transfer to [facility] Facility Attending Physician: Parminder Villagran MD Admitting Physician: Parminder Villagran MD Referring Physician: Not on Staff, Referring MD Allergies, Adverse Reactions, Alerts Substance Reaction Severity Status Trileptal Active Immunizations Given and Recorded Vaccine Date Status Refusal Reason tetanus/diphtheria/pertussis, acel(Tdap) 12/22/19 Given Medications Abilify 10 mg oral tablet 10 mg, 1, tablet, By Mouth, Daily, # 30 tablet, Refills 0, Tot. Refills 0, Maintenance, 04/22/20 14:43:00 EST, Route to Pharmacy Electronically, [facility]-, Partial fill uponpatient request if the prescription is for a schedu... Start Date: 04/22/20 Stop Date: 05/22/20 Status: Ordered prazosin 1 mg oral capsule 2 mg, Capsule, By Mouth, 05/23/20 21:00:00 EDT Start Date: 05/23/20 Stop Date: 05/23/20 Status: Completed prazosin 2 mg oral capsule 1 capsule = 2 mg, By Mouth, Daily at bedtime, takes with 5 mg prazosin, # 30 capsule, 0 Refills, Maintenance, 04/22/20 14:44:00 EST, Capsule, [facility], Partial fill upon patient request if the prescription is for a schedule... Start Date: 04/22/20 Stop Date: 05/22/20 Status: Ordered prazosin 5 mg oral capsule 5 mg, Capsule, By Mouth, 05/23/20 21:00:00 EDT Start Date: 05/23/20 Stop Date: 05/23/20 Status: Completed prazosin 5 mg oral capsule 5 mg, 1, capsule, By Mouth, Daily at bedtime, # 30 capsule, Refills 0, Tot. Refills 0, Maintenance,04/22/20 14:44:00 EST, Route to Pharmacy Electronically, [facility]-, Partial fill upon patient request if the prescription is... Start Date: 04/22/20 Stop Date: 05/22/20 Status: Ordered traZODone 100 mg oral tablet 100 mg, 1, tablet, By Mouth, Daily at bedtime, # 30 tablet, Refills 0, Tot. Refills 0, Maintenance,04/22/20 14:45:00 EST, Route to Pharmacy Electronically, [facility]-, Partial fill upon patient request if the prescription is... Start Date: 04/22/20 Stop Date: 05/22/20 Status: Ordered venlafaxine 75 mg oral tablet, extended release 1.5 tablet = 112.5 mg, By Mouth, Daily, # 45 tablet, 0 Refills, Maintenance, 04/22/20 14:45:00 EST,ER Tablet, [facility], Partial fill upon patient request if the prescription is for a schedule II opioid drug., 167, cm, 04/22... Start Date: 04/22/20 Stop Date: 05/22/20 Status: Ordered Problem List Condition Effective Dates Status Health Status Inform ant Depression(Confirmed) Active Tobacco dependence(Confirmed) Active Vital Signs Most recent to oldest [Reference Range]: 1 2 3 Height 168 cm (05/23/20 8:57 PM) 168 cm (05/23/20 8:57 AM) 168 cm (05/22/20 7:41 PM) Weight 137 kg (05/23/20 8:57 PM) 137 kg (05/23/20 8:57 AM) 137 kg (05/22/20 7:41 PM) Oxygen Saturation [94-100 %] 96 % (05/24/20 9:00 AM) 95 % (05/23/20 11:19 PM) 97 % (05/23/20 8:57 PM) Pulse Rate [55-90 bpm] 108 bpm *H* (05/24/20 9:00 AM) 96 bpm *H* (05/23/20 11:19 PM) 99 bpm *H* (05/23/20 8:57 PM) Body Mass Index [18.5-24.99] 48.54 *>HHI* (05/23/20 8:57 PM) 48.54 *>HHI* (05/23/20 8:57 AM) Blood Pressure [90-138/55-84 mm Hg] 134/79mm Hg (05/24/20 9:00 AM) 124/59mm Hg (05/23/20 8:57 PM) 124/59mm Hg (05/23/20 8:51 PM) Respiratory Rate [16-30 br/min] 16 br/min (05/24/20 9:00 AM) 16 br/min (05/23/20 11:19 PM) 16 br/min (05/23/20 8:57 PM) Temperature [96.8-100.4 DegF] 97.2 DegF (05/24/20 9:00 AM) 97.4 DegF (05/23/20 11:19 PM) 98.1 DegF (05/23/20 8:57 PM) Mode of Delivery (Oxygen) Room air (05/24/20 9:00 AM) Room air (05/23/20 11:19 PM) Room air (05/23/20 8:57 PM) Blood pressure sites Arm, left (05/23/20 3:40 PM) Arm, left (05/23/20 8:57 AM) Temperature Route Oral (05/24/20 9:00 AM) Oral (05/23/20 11:19 PM) Oral (05/23/20 8:57 PM) Dry Weight 137 kg (05/23/20 8:57 PM) 137 kg (05/23/20 8:57 AM) 137 kg (05/22/20 7:41 PM) Social History Social History Type Response Smoking Status 10 or more cigarette s (1/2 pack or more)/day in last 30 days entered on: 09/07/18 Sex
--- OUTSIDE RECORDS SUMMARY | 2023-06-07 19:08 | XMS_ITS | Continuity of Care Document ---
Author Organization [facility] Address [address] [place] [address]- Care Team Providers Care Press Hand Supervisor Name Role Phone Yovanny RILEY, Nikki Primary Care Physician [place] [facility] [place]14/23 - 04/15/[address] [address]- Encounter Diagnosis Acute COVID-19(Final) - 04/14/23 Discharge Disposition: A-D/C Home Attending Physician: Medardo Miramontes DO Admitting Physician: Medardo Miramontes DO Referring Physician: Not on Staff, Referring MD [...] (COVID-19) mRNA [id number] vac 03/02/20 Recorded Medications desmopressin 0.1 mg oral tablet = 0.2 mg, By Mouth, Daily at bedtime, # 30 tablet, 0 Refills, Maintenance, 04/03/23 8:17:00 EST, [id number], Partial fill upon patient request if the prescription is for a schedule II opioid drug., 167, cm, 04/02/23 20:... Start Date: 04/03/23 Status: Ordered duloxetine 60 mg oral enteric coated capsule = 60 mg, By Mouth, Daily, # 30 capsule, 0 Refills, Maintenance, 04/03/23 8:17:00 EST, [facility], [id number], Partial fill upon patient request if the prescription is for a schedule II opioid drug., 167, cm, 04/02/23 20:16:00 EST,... Start Date: 04/03/23 Status: Ordered haloperidol 5 mg oral tablet 5 mg, By Mouth, Daily, # 30 tablet, Refills 0, Tot. Refills 0, Maintenance, 04/03/23 8:19:00 EST, Route to Pharmacy Electronically, [facility] [place]-[id number], Partial fill upon patient request if the prescription is for a schedule II opioid d... Start Date: 04/03/23 Status: Ordered haloperidol 5 mg oral tablet 5 mg, By Mouth, 2 times a day, PRN, # 60 tablet, Refills 0, Tot. Refills 0, Maintenance, Anxiety, 04/03/23 8:20:00 EST, Route to Pharmacy Electronically, [facility]-[id number], Partial fill upon patient request if the prescription is for... Start Date: 04/03/23 Status: Ordered hydrOXYzine pamoate 50 mg oral capsule = 50 mg, By Mouth, Every 6 hours, PRN Anxiety, 0 Refills, Maintenance, 04/03/23 8:21:00 EST, Capsule, Partial fill upon patient request if the prescription is for a schedule II opioid drug. Start Date: 04/03/23 Status: Ordered ibuprofen 400 mg oral tablet 400 mg, By Mouth, 3 times a day, PRN, Refills 0, Maintenance, Pain , Mild, 04/03/23 8:20:00 EST, Partial fill upon patient request if the prescription is for a schedule II opioid drug. Start Date: 04/03/23 Status: Ordered methylphenidate 27 mg oral tablet, extended release = 27 mg, By Mouth, Daily, # 30 tablet, 0 Refills, Maintenance, 04/03/23 8:17:00 EST, ER Tablet, [id number], Partial fill upon patient request if the prescription is for a schedule II opioid drug., 167, cm, 04/02/23 20:16:00 EST... Start Date: 04/03/23 Status: Ordered Milk of Magnesia Liquid 30 mL, By Mouth, 2 times a day, PRN Constipation, 0 Refills, Maintenance, 04/03/23 8:21:00 EST, Suspension, Partial fill upon patient request if the prescription is for a schedule II opioid drug. Start Date: 04/03/23 Status: Ordered prazosin 1 mg oral capsule 1 mg, By Mouth, Daily at bedtime, # 30 capsule, Refills 0, Tot. Refills 0, Maintenance, 04/03/23 8:18:00 EST, [id number], Partial fill upon patient request if the prescription is for a schedule... Start Date: 04/03/23 Status: Ordered topiramate 50 mg oral tablet = 150 mg, By Mouth, Daily at bedtime, # 90 tablet, 0 Refills, Maintenance, 04/03/23 8:18:00 EST, Tablet, [facility]-[id number], Partial fill upon patient request if the prescription is for a schedule II opioid drug., 167, cm, 04/02/23 20:... Start Date: 04/03/23 Status: Ordered traZODone 50 mg oral tablet 50 mg, By Mouth, Daily at bedtime, PRN, # 30 tablet, Refills 0, Tot. Refills 0, Maintenance, Sleep,04/03/23 8:19:00 EST, Route to Pharmacy Electronically, [facility] [place]-[id number], Partialfill upon patient request if the prescription is fo... Start Date: 04/03/23 Status: Ordered Tylenol 325 mg oral tablet 650 mg, By Mouth, Every 6 hours, PRN, Refills 0, Maintenance, Pain , Moderate, 04/03/23 8:21:00 EST, Partial fill upon patient request if the prescription is for a schedule II opioid drug. Start Date: 04/03/23 Status: Ordered Problem List Condition Confirmation Course Effective Dates Status Health St atus Informant Borderline personality disorder Confirmed Active COVID-19 1 Confirmed 04/15/23 Active Alcohol use Confirmed Active Depression Confirmed [...] Range]: 1 2 3 Height 168 cm (04/15/23 6:42 AM) 168 cm (04/15/23 12:09 AM) 168 cm (04/14/23 4:35 PM) Weight 145 kg (04/15/23 6:42 AM) 145 kg (04/15/23 12:09 AM) 145 kg (04/14/23 4:35 PM) Oxygen Saturation [94-100 %] 97 % (04/15/23 6:42 AM) 99 % (04/15/23 12:09 AM) 97 % (04/14/23 8:03 PM) Pulse Rate [55-90 bpm] 78 bpm (04/15/23 6:42 AM) 110 bpm *H* (04/15/23 12:09 AM) 83 bpm (04/14/23 8:03 PM) Body Mass Index [18.5-24.99 kg/m2] 51.37 kg/m2 *>HHI* (04/15/23 6:42 AM) 51.37 kg/m2 *>HHI* (04/15/23 12:09 AM) Blood Pressure [90-138/55-84 mm Hg] 131/78mm Hg (04/15/23 6:42 AM) 137/83mm Hg (04/15/23 12:09 AM) 142/79mm Hg *H* (04/14/23 8:03 PM) Respiratory Rate [16-30 br/min] 20 br/min (04/15/23 6:42 AM) 22 br/min (04/15/23 12:09 AM) 18 br/min (04/14/23 8:03 PM) Temperature [96.8-100.4 DegF] 97.1 DegF (04/15/23 6:42 AM) 97.5 DegF (04/15/23 12:09 AM) 97 DegF (04/14/23 8:03 PM) Mode of Delivery (Oxygen) room air (04/15/23 6:42 AM) Room air (04/15/23 12:09 AM) Room air (04/14/23 8:03 PM) Blood pressure sites Arm, right (04/14/23 8:03 PM) Arm, right (04/14/23 4:35 PM) Temperature Route Temporal (04/15/23 6:42 AM) Temporal (04/15/23 12:09 AM) Temporal (04/14/23 8:03 PM) Dry Weight 145 kg (04/15/23 6:42 AM) 145 kg (04/15/23 12:09 AM) 145 kg (04/14/23 4:35 PM) Weight Obtained Via Patient/family state d (04/14/23 4:35 PM) Dry Weight Obtained Via Patient/family s tated (04/14/23 4:35 PM) Social History Social History Type Response Smoking Status 10 or more cigarette s (1/2 pack or more)/day in last 30 days entered on: 09/07/18 Sex Patient Care team information Care Team Personnel Name: Garcia Baez RN Position: [facility] RN Member Role: Primary Care Nurse Name: Diamond Mancini RN Position: [facility] RN Member Role: Primary Care Nurse Name: Leah Almonte RN Position: [facility] RN Member Role: Primary Care Nurse Name: Natasha Dickey RN Position: [facility] RN Member Role: Primary Care Nurse Name: Kellee Garvin RN Position: [facility] RN Member Role: Primary Care Nurse Name: Maegan Diaz RN Position: [facility] RN Member Role: Primary Care Nurse Name: Genesis Lea RN Position: [facility] RN Member Role: Primary Care Nurse Name: Nikki Hairston NP Position: [facility] PCO Associate Professional Member Role: PCP Address: Address: [address] [place] [address] Name: Alejandra Gilbert RN Position: [facility] RN Member Role: Primary Care Nurse Name: Zara Colon RN Position: [facility] RN Supv Member Role: Primary Care Nurse Name: Stefani Pinto RN Position: [facility] RN Member Role: Primary Care Nurse Name: Araceli Quevedo RN Position: [facility] RN Member Role: Primary Care Nurse Name: Fatoumata Loyd RN Position: S RN Member Role: Primary Care Nurse Name: Melissa Stapleton RN Position: [facility] RN Member Role: Primary Care Nurse Name: Ligia Stapleton RN Position: [facility] RN Member Role: Primary Care Nurse Name: Melissa Davison RN Position: S RN Member Role: Primary Care Nurse Name: Trinidad Ordonez RN Position: [facility] RN Member Role: Primary Care Nurse Name: Mariaelena Collazo RN Position: S RN Member Role: Primary Care Nurse Name: Beatrice Pisano RN Position: [facility] RN Member Role: Primary Care Nurse Name: Shankar Man Position: [facility] RN Member Role: Primary Care Nurse Name: Nikki Croft RN Position: [facility] RN Member Role: Primary Care Nurse Name: John Cuellar RN Position: [facility] RN Member Role: Primary Care Nurse Name: Christos Godoy RN Position: [facility] RN Member Role: Primary Care Nurse Care Team Related Persons Name: [employer]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
--- OUTSIDE RECORDS SUMMARY | 2023-06-07 19:08 | XMS_ITS | Continuity of Care Document ---
Author Organization [facility] Address [address] [place] [address]- Care Team Providers Care Help Desk Analyst Name Role Phone Katie RILEY, Narda Marian Primary Care Physici an Encounter [facility] [place] Date(s): 09/29/21 - 09/30/[address] [address]- Discharge Disposition: A-D/C Home Attending Physician: Glenda Moody MD Admitting Physician: Glenda Moody MD Referring Physician: Not on Staff, Referring MD Allergies, Adverse Reactions, Alerts Substance Reaction Severity Status ibuprofen 1 Active Thorazine Skin rash Active Trileptal Active Geodon full body tremors Active 1pt told notto take as she takes lithium Immunizations Given and Recorded Vaccine Date Status Refusal Reason SARS-CoV-2 (COVID-19) mRNA-1273 vaccine 01/25/21 R ecorded influenza virus vaccine, inactivated 11/11/20 Give n SARS-CoV-2 (COVID-19) mRNA BNT-162b2 vac 04/13/20 Recorded SARS-CoV-2 (COVID-19) mRNA BNT-162b2 vac 03/02/20 Recorded tetanus/diphtheria/pertussis, acel(Tdap) 12/22/19 Given Medications ARIPiprazole 20 mg oral tablet 1 tablet = 20 mg, By Mouth, Daily, # 30 tablet, 0 Refills, Maintenance, 09/15/21 12:18:00 EDT, Tablet, [facility]-[id number], Partial fill upon patient request if the prescription is fora schedule II opioid drug., 168, cm, 09/15/21 8:28:... Start Date: 09/15/21 Status: Ordered docusate sodium 100 mg oral capsule 1 capsule = 100 mg, By Mouth, 2 times a day, PRN as needed for constipation, # 20 capsule, 0 Refills, Maintenance, 07/19/21 20:16:00 EDT, Capsule, Partial fill upon patient request if the prescription is for a schedule II opioid drug. Start Date: 07/19/21 Status: Ordered Gabapentin = 600 mg, By Mouth, Daily in AM, 0 Refills, Maintenance, 09/29/21 21:39:00 EDT, Partial fill upon patient request if the prescription is for a schedule II opioid drug. Start Date: 09/29/21 Status: Ordered Gabapentin = 300 mg, By Mouth, 2 times a day, Afternoon and HS, 0 Refills, Maintenance, 09/29/21 21:40:00 EDT,Partial fill upon patient request if the prescription is for a schedule II opioid drug. Start Date: 09/29/21 Status: Ordered gabapentin 300 mg oral capsule 300 mg, Capsule, By Mouth, 09/30/21 9:00:00 EDT Start Date: 09/30/21 Stop Date: 09/30/21 Status: Completed HydrOXYzine HCL Tablet By Mouth, Every 4 hours, PRN as needed for anxiety, 0 Refills, Maintenance, 09/29/21 21:41:00 EDT, Partial fill upon patient request if the prescription is for a schedule II opioid drug. Start Date: 09/29/21 Status: Ordered Imitrex 25 mg oral tablet 4 tablet = 100 mg, By Mouth, Daily, PRN Migraine Headache, 0 Refills, Maintenance, 07/14/21 11:04:00 EDT, Tablet, Partial fill upon patient request if the prescription is for a schedule II opioid drug. Start Date: 07/14/21 Status: Ordered lithium 600 mg oral capsule 1 capsule = 600 mg, By Mouth, 2 times a day, # 60 capsule, 0 Refills, Maintenance, 09/15/21 12:17:00 EDT, Capsule, [facility]-[id number], Partial fill upon patient request if the prescription is for a schedule II opioid drug., 168, cm, 08... Start Date: 09/15/21 Status: Ordered LORazepam 1 mg oral tablet 1 tablet = 1 mg, By Mouth, PRN as needed for anxiety, 0 Refills, Maintenance, 09/28/21 22:44:00 EDT, Tablet, Partial fill upon patient request if the prescription is for a schedule II opioid drug. Start Date: 09/28/21 Status: Ordered metFORMIN 500 mg oral tablet 1 each = 500 mg, By Mouth, 2 times a day, # 60 tablet, 0 Refills, Maintenance, 09/15/21 12:18:00 EDT, Tablet, [facility]-[id number], Partial fill upon patient request if the prescriptionis for a schedule II opioid drug., 168, cm, ... Start Date: 09/15/21 Status: Ordered Neurontin 300 mg oral capsule 300 mg, 1, capsule, By Mouth, 3 times a day, # 90 capsule, Refills 0, Maintenance, 09/29/21 21:47:00 EDT, Partial fill upon patient request if the prescription is for a schedule II opioid drug. Start Date: 09/29/21 Status: Ordered Neurontin 300 mg oral capsule 600 mg, Capsule, By Mouth, 09/30/21 9:00:00 EDT Start Date: 09/30/21 Stop Date: 09/30/21 Status: Completed ondansetron 4 mg oral tablet, disintegrating = 8 mg, By Mouth, Every 8 hours, PRN Nausea & Vomiting, 0 Refills, Maintenance, 07/14/21 11:03:00 EDT, Tablet, Partial fill upon patient request if the prescription is for a schedule II opioid drug. Start Date: 07/14/21 Status: Ordered prazosin 2 mg oral capsule 1 capsule = 2 mg, By Mouth, Daily at bedtime, 0 Refills, Maintenance, 09/29/21 21:43:00 EDT, Partial fill upon patient request if the prescription is for a schedule II opioid drug. Start Date: 09/29/21 Status: Ordered prazosin 5 mg oral capsule 5 mg, 1, capsule, By Mouth, Daily at bedtime, PRN, PRN Nightmares, Refills 0, Maintenance, Other, 09/29/21 21:44:00 EDT, Partial fill upon patient request if the prescription is for a schedule II opioid drug. Start Date: 09/29/21 Status: Ordered PROzac 20 mg oral capsule 40 mg, 2, capsule, By Mouth, Daily, # 60 capsule, Refills 0, Tot. Refills 0, Maintenance, 09/15/21 12:16:00 EDT, Route to Pharmacy Electronically, [facility]-[id number], Partial fill upon patient request if the prescription is for a sched... Start Date: 09/15/21 Status: Ordered Trazodone = 150 mg, By Mouth, Daily at bedtime, 0 Refills, Maintenance, 09/29/21 21:46:00 EDT, Partial fill upon patient request if the prescription is for a schedule II opioid drug. Start Date: 09/29/21 Status: Ordered Vitamin B2 = 400 mg, By Mouth, Daily in AM, 0 Refills, Maintenance, 09/29/21 21:50:00 EDT, Partial fill upon patient request if the prescription is for a schedule II opioid drug. Start Date: 09/29/21 Status: Ordered Zofran ODT 4 mg oral tablet, disintegrating = 8 mg, By Mouth, PRN Nausea, 0 Refills, Maintenance, 09/29/21 21:48:00 EDT, Partial fill upon patient request if the prescription is for a schedule II opioid drug. Start Date: 09/29/21 Status: Ordered Problem List Condition Effective Dates Status Health Status Inform ant Depression(Confirmed) Active Major depressive disorder, recurrent(Confirmed) Active Severe obesity(Confirmed) Active Tobacco dependence(Confirmed) Active Vital Signs Most recent to oldest [Reference Range]: 1 2 3 Height 168 cm (09/30/21 6:18 AM) 168 cm (09/29/21 9:04 PM) Weight 140.5 kg (09/30/21 6:18 AM) 140.5 kg (09/29/21 9:04 PM) Oxygen Saturation [94-100 %] 98 % (09/30/21 8:32 AM) 97 % (09/30/21 6:18 AM) 99 % (09/29/21 9:04 PM) Pulse Rate [55-90 bpm] 73 bpm (09/30/21 8:32 AM) 79 bpm (09/30/21 6:18 AM) 112 bpm *H* (09/29/21 9:04 PM) Body Mass Index [18.5-24.99] 49.78 *>HHI* (09/30/21 6:18 AM) Blood Pressure [90-138/55-84 mm Hg] 111/70mm Hg (09/30/21 8:32 AM) 120/76mm Hg (09/30/21 6:18 AM) 139/85mm Hg *H* (09/29/21 9:04 PM) Respiratory Rate [16-30 br/min] 16 br/min (09/30/21 8:32 AM) 16 br/min (09/30/21 8:29 AM) 16 br/min (09/30/21 8:29 AM) Temperature [96.8-100.4 DegF] 97.5 DegF (09/30/21 8:32 AM) 96.6 DegF *L* (09/30/21 6:18 AM) 99.2 DegF (09/29/21 9:04 PM) Mode of Delivery (Oxygen) Room air (09/30/21 8:32 AM) Room air (09/30/21 6:18 AM) Room air (09/29/21 9:04 PM) Blood pressure sites Arm, left (09/30/21 8:32 AM) Arm, left (09/30/21 6:18 AM) Arm, left (09/29/21 9:04 PM) Temperature Route Temporal (09/30/21 8:32 AM) Temporal (09/30/21 6:18 AM) Temporal (09/29/21 9:04 PM) Dry Weight 140.5 kg (09/30/21 6:18 AM) 140.5 kg (09/29/21 9:04 PM) Social History Social History Type Response Smoking Status 10 or more cigarette s (1/2 pack or more)/day in last 30 days entered on: 12/11/20 Sex
--- OUTSIDE RECORDS SUMMARY | 2023-06-07 19:08 | XMS_ITS | Continuity of Care Document ---
Author Organization [facility] Address [address] [place] [address]- Care Team Providers Care Throat Cutter Name Role Phone Katie RILEY, Narda Marian Primary Care Physici an Encounter [facility] [place] Date(s): 07/20/21 - 09/15/21 [facility] [address] [place] [address]- Discharge Disposition: A-D/C Home Attending Physician: Drea ESTES, Enrique Mcgill Admitting Physician: Isma Terry MD Referring Physician: Not on Staff, Referring [...] 03/02/20 Recorded tetanus/diphtheria/pertussis, acel(Tdap) 12/22/19 Given Medications Acetaminophen Tablet 650 mg, Tablet, By Mouth, Every 4 hours, PRN for Pain , Mild, Routine, 07/20/21 19:34:00 EDT Start Date: 07/20/21 Stop Date: 09/15/21 Status: Discontinued ARIPiprazole 20 mg oral tablet 1 tablet = 20 mg, By Mouth, Daily, # 30 tablet, 0 Refills, Maintenance, 09/15/21 12:18:00 EDT, Tablet, [facility]-[id number], Partial fill upon patient request if the [...] opioid drug. Start Date: 07/19/21 Status: Ordered gabapentin 300 mg oral capsule 300 mg, 1, capsule, By Mouth, 2 times a day, # 60 capsule, Refills 0, Tot. Refills 0, Maintenance, 09/15/21 12:16:00 EDT, [facility] [place], Partialfill upon patient request if the prescription is fo... Start Date: 09/15/21 Status: Ordered gabapentin 300 mg oral capsule 600 mg, 2, capsule, By Mouth, Daily in AM, # 60 capsule, Refills 0, Tot. Refills 0, Maintenance, 09/15/21 12:17:00 EDT, [facility] [place], Partial fill upon patient request if the prescription is for... Start Date: 09/15/21 Status: Ordered gabapentin 300 mg oral capsule 600 mg, Capsule, By Mouth, 09/15/21 9:00:00 EDT Start Date: 09/15/21 Stop Date: 09/15/21 Status: Completed hydrOXYzine hydrochloride 25 mg oral tablet 1 tablet = 25 mg, By Mouth, 4 times a day, PRN for anxiety, # 40 tablet, 0 Refills, Maintenance, 07/19/21 20:14:00 EDT, Tablet, Partial fill upon patient request if the prescription is for a scheduleII opioid drug. Start Date: 07/19/21 Status: Ordered Imitrex 25 mg oral tablet [...] 0 Refills, Maintenance, 09/15/21 12:17:00 EDT, Capsule, [facility]-[id number], Partial fill upon patient request if the prescription is for a schedule II opioid drug., 168, cm, 08... Start Date: 09/15/21 Status: Ordered metFORMIN 500 mg oral tablet 1 each = 500 mg, By Mouth, 2 times a day, # 60 tablet, 0 Refills, Maintenance, 09/15/21 12:18:00 EDT, Tablet, [facility]-[id number], Partial fill upon patient request if the prescriptionis for a schedule II opioid drug., 168, cm, ... Start Date: 09/15/21 Status: Ordered ondansetron 4 mg oral tablet, disintegrating = 8 mg, By Mouth, Every 8 hours, PRN Nausea & Vomiting, 0 Refills, Maintenance, 07/14/21 11:03:00 EDT, Tablet, Partial fill upon patient request if the prescription is for a schedule II opioid drug. Start Date: 07/14/21 Status: Ordered prazosin 1 mg oral capsule 2 mg, 2, capsule, By Mouth, Daily at bedtime, # 60 capsule, Refills 0, Tot. Refills 0, Maintenance,09/15/21 12:18:00 EDT, Route to Pharmacy Electronically, [facility]-[id number], Partial fill upon patient request if the prescription is f... Start Date: 09/15/21 Status: Ordered prazosin 5 mg oral capsule 5 mg, 1, capsule, By Mouth, Daily at bedtime, # 30 capsule, Refills 0, Tot. Refills 0, Maintenance,09/15/21 12:18:00 EDT, Route to Pharmacy Electronically, [facility]-[id number], Partial fill upon patient request if the prescription is f... Start Date: 09/15/21 Status: Ordered PROzac 20 mg oral capsule 40 mg, 2, capsule, By Mouth, Daily, # 60 capsule, Refills 0, Tot. Refills 0, Maintenance, 09/15/21 12:16:00 EDT, Route to Pharmacy Electronically, [facility]-[id number], Partial fill upon patient request if the prescription is for a sched... Start Date: 09/15/21 Status: Ordered Problem List Condition Effective Dates Status Health Status Inform ant Depression(Confirmed) Active Major depressive disorder, recurrent(Confirmed) Active Severe obesity(Confirmed) Active Tobacco dependence(Confirmed) Active Vital Signs Most recent to oldest [Reference Range]: 1 2 3 Height 168 cm (09/15/21 8:10 AM) 168 cm (09/14/21 8:10 PM) 168 cm (09/14/21 8:15 AM) Weight 142.2 kg (09/15/21 9:26 AM) 144.2 kg (09/07/21 4:35 PM) 142.6 kg (08/31/21 1:01 PM) Oxygen Saturation [94-100 %] 98 % (09/15/21 8:10 AM) 98 % (09/14/21 8:10 PM) 98 % (09/14/21 8:15 AM) Pulse Rate [55-90 bpm] 95 bpm *H* (09/15/21 8:10 AM) 85 bpm (09/14/21 8:10 PM) 95 bpm *H* (09/14/21 8:15 AM) Body Mass Index [18.5-24.99] 49.14 *>HHI* (07/20/21 6:03 PM) 49.96 *>HHI* (07/20/21 8:44 AM) 49.96 *>HHI* (07/19/21 9:56 PM) Blood Pressure [90-138/55-84 mm Hg] 129/69mm Hg (09/15/21 8:10 AM) 103/64mm Hg (09/14/21 8:10 PM) 126/91mm Hg (09/14/21 8:15 AM) Respiratory Rate [16-30 br/min] 16 br/min (09/15/21 10:00 AM) 16 br/min (09/15/21 10:00 AM) 16 br/min (09/15/21 8:29 AM) Temperature [96.8-100.4 DegF] 97.9 DegF (09/15/21 8:10 AM) 97.5 DegF (09/14/21 8:10 PM) 97.5 DegF (09/14/21 8:15 AM) Mode of Delivery (Oxygen) Room air (09/15/21 8:10 AM) Room air (09/14/21 8:10 PM) Room air (09/14/21 8:15 AM) Blood pressure sites Arm, left (09/15/21 8:10 AM) Arm, left (09/14/21 8:10 PM) Arm, left (09/14/21 8:15 AM) Temperature Route Temporal (09/15/21 8:10 AM) Temporal (09/14/21 8:10 PM) Temporal (09/14/21 8:15 AM) Dry Weight 138.7 kg (07/20/21 6:03 PM) 141 kg (07/20/21 8:44 AM) 141 kg (07/19/21 9:56 PM) Weight Obtained Via Standing scale (09/15/21 9:26 AM) Standing scale (08/24/21 1:00 PM) Standing scale (08/17/21 11:54 AM) Dry Weight Obtained Via Standing scale (07/20/21 6:03 PM) Social History Social History Type Response Smoking Status 10 or more cigarette s (1/2 pack or more)/day in last 30 days entered on: 12/11/20 Sex
--- OUTSIDE RECORDS SUMMARY | 2023-06-07 19:08 | XMS_ITS | Continuity of Care Document ---
Author Organization [facility] Address [address] [place] [address]- Care Team Providers Care Research Spec Name Role Phone Katie RILEY, Narda Fonseca Primary Care Physici an [place] [facility] [place](s[place] 04/17/20 - 04/18/20 [facility] [address] [place] [address]- Discharge Disposition: Transferred to short-term general hospit Attending Physician: Carter Shen MD Admitting Physician: [...] Range]: 1 2 3 Height 168 cm (04/18/20 12:04 AM) 168 cm (04/17/20 7:21 PM) 168 cm (04/17/20 5:59 PM) Weight 132 kg (04/18/20 12:04 AM) 132 kg (04/17/20 7:21 PM) 132 kg (04/17/20 5:59 PM) Oxygen Saturation [94-100 %] 98 % (04/18/20 12:04 AM) 98 % (04/17/20 7:08 PM) 97 % (04/17/20 6:12 PM) Pulse Rate [55-90 bpm] 91 bpm *H* (04/18/20 12:04 AM) 98 bpm *H* (04/17/20 7:08 PM) 112 bpm *H* (04/17/20 6:12 PM) Body Mass Index [18.5-24.99] 46.77 *>HHI* (04/18/20 12:04 AM) 46.77 *>HHI* (04/17/20 7:21 PM) Blood Pressure [90-138/55-84 mm Hg] 122/73mm Hg (04/18/20 12:04 AM) 170/108mm Hg *H* (04/17/20 7:08 PM) 150/80mm Hg *H* (04/17/20 6:12 PM) Respiratory Rate [16-30 br/min] 18 br/min (04/18/20 12:04 AM) 20 br/min (04/17/20 7:08 PM) 28 br/min (04/17/20 6:12 PM) Temperature [96.8-100.4 DegF] 97.8 DegF (04/18/20 12:04 AM) 98.3 DegF (04/17/20 7:21 PM) 98.4 DegF (04/17/20 6:12 PM) Mode of Delivery (Oxygen) room air (04/18/20 12:04 AM) Room air (04/17/20 7:08 PM) Room air (04/17/20 6:12 PM) Temperature Route Oral (04/18/20 12:04 AM) Oral (04/17/20 7:21 PM) Oral (04/17/20 6:12 PM) Dry Weight 132 kg (04/18/20 12:04 AM) 132 kg (04/17/20 7:21 PM) 132 kg (04/17/20 5:59 PM) Social History Social History Type Response Smoking Status 10 or more cigarette s (1/2 pack or more)/day in last 30 days entered on: 09/07/18 Sex
--- OUTSIDE RECORDS SUMMARY | 2023-06-07 19:08 | XMS_ITS | Continuity of Care Document ---
Author Organization [facility] Address [address] [place] [address]- Care Team Providers Care Shoe Dresser Name Role Phone Bela Dumont MD Primary Care Physician [place] [facility] [place] 11/22/[address] [address]- [facility] [phone] Discharge Disposition: A-D/C Home Attending Physician: Misty Cutler MD Admitting Physician: Misty Cutler MD Referring Physician: Not on Staff, Referring [...] Replace Required Details, Route to Pharmacy Electronically, [facility]/pharmacy #[id number], 175, cm, 04/30/19 12:12:00... Start Date: 04/30/19 Status: Ordered buPROPion 100 mg/12 hours (SR) oral tablet, extended release 1 tablet = 100 mg, By Mouth, Daily before dinner, # 30 tablet, 0 Refills, Maintenance, 04/30/19 13:51:00 EDT, SR Tablet, [facility]/pharmacy #[id number], 175, cm, 04/30/19 12:12:00 EDT, Height, 107.27, kg, 03/18/19 12:26:00 EST, Dry Weight Start Date: 04/30/19 Status: Ordered buPROPion 200 mg/12 hours (SR) oral tablet, extended release 1 tablet = 200 mg, By Mouth, Daily in AM, # 30 tablet, 0 Refills, Maintenance, 04/30/19 13:51:00 EDT, ER Tablet, [facility]/pharmacy #[id number], 175, cm, 04/30/19 12:12:00 EDT, Height, 107.27, kg, 03/18/19 12:26:00 EST, Dry Weight Start Date: 04/30/19 Status: Ordered ChlorproMAZINE See Instructions, 100 mg Daily/ PRN, 0 Refills, Maintenance, 11/22/19 11:23:00 EDT Start Date: 11/22/19 Status: Ordered DiphenhydrAMINE = 50 mg, Daily at bedtime, PRN at bedtime, 0 Refills, Maintenance, 11/22/19 11:27:00 EDT Start Date: 11/22/19 Status: Ordered escitalopram 20 mg oral tablet 1 tablet = 20 mg, By Mouth, Daily, # 30 tablet, 0 Refills, Maintenance, 04/30/19 13:47:00 EDT, Tablet, [facility]/pharmacy #[id number], 175, cm, 04/30/19 12:12:00 EDT, Height, 107.27, kg, 03/18/19 12:26:00 EST, Dry Weight Start Date: 04/30/19 Status: Ordered haloperidol 5 mg oral tablet See Instructions, 2 tablets PO QAM and 1 tablet PO QHS, # 90 tablet, Refills 0, Tot. Refills 0, Maintenance, 04/30/19 13:53:00 EDT, Instructions Replace Required Details, Route to Pharmacy Electronically, [facility]/pharmacy #[id number], 175, cm, 04/30/19 12:12:00... Start Date: 04/30/19 Status: Ordered ibuprofen 400 mg oral tablet See Instructions, 1 tablet By Mouth Every 6 hours/pRN for pain, Refills 0, Maintenance, 11/22/19 11:28:00 EDT, Instructions Replace Required Details Start Date: 11/22/19 Status: Ordered lamotrigine 100 mg oral tablet 250 mg, 2.5, tablet, By Mouth, Daily at bedtime, # 75 tablet, Refills 0, Tot. Refills 0, Maintenance, 04/30/19 13:48:00 EDT, Route to Pharmacy Electronically, [facility]/pharmacy #[id number], 175, cm, 04/30/19 12:12:00 EDT, Height, 107.27, kg, 03/18/19 12:26:00 ES... Start Date: 04/30/19 Status: Ordered Lorazepam See Instructions, 2 mg at 14:00 daily, 0 Refills, Maintenance, 11/22/19 11:22:00 EDT Start Date: 11/22/19 Status: Ordered Lorazepam See Instructions, 1 mg daily PRN, 0 Refills, Maintenance, 11/22/19 11:29:00 EDT Start Date: 11/22/19 Status: Ordered melatonin 3 mg oral tablet 1 tablet = 3 mg, By Mouth, Daily at bedtime, PRN for insomnia, # 60 tablet, 0 Refills, Maintenance,11/22/19 11:30:00 EDT, Tablet Start Date: 11/22/19 Status: Ordered prazosin 5 mg oral capsule 5 mg, 1, capsule, By Mouth, Daily at bedtime, Refills 0, Maintenance, 11/22/19 11:21:00 EDT Start Date: 11/22/19 Status: Ordered traZODone 100 mg oral tablet 100 mg, 1, tablet, By Mouth, Daily at bedtime, # 30 tablet, Refills 0, Tot. Refills 0, Maintenance,04/30/19 13:49:00 EDT, Route to Pharmacy Electronically, [facility]/pharmacy #[id number], 175, cm, 04/30/19 12:12:00 EDT, Height, 107.27, kg, 03/18/19 12:26:00 EST,... Start Date: 04/30/19 Status: Ordered traZODone 50 mg oral tablet See Instructions, 1 tablet By Mouth Daily at bedtime/PRN, Refills 0, Maintenance, 11/22/19 11:24:00EDT, Instructions Replace Required Details Start Date: 11/22/19 Status: Ordered Trileptal 300 mg oral tablet 600 mg, 2, tablet, By Mouth, 2 times a day, # 360 tablet, Refills 0, Maintenance, 11/22/19 11:16:00EDT Start Date: 11/22/19 Status: Ordered Tylenol 325 mg oral tablet See Instructions, PRN, 2 tablet By Mouth Every 4 hours PRN for pain and fever, Refills 0, Maintenance, for fever, 11/22/19 11:32:00 EDT, Instructions Replace Required Details Start Date: 11/22/19 Status: Ordered Venlafaxine = 225 mg, By Mouth, Daily, 0 Refills, Maintenance, 11/22/19 11:17:00 EDT Start Date: 11/22/19 Status: Ordered Problem List Condition Effective Dates Status Health Status Inform ant Depression(Confirmed) Active Tobacco dependence(Confirmed) Active Vital Signs Most recent to oldest [Reference Range]: 1 2 Height 168 cm (11/22/19 10:56 AM) Weight 114.5 kg (11/22/19 10:56 AM) Oxygen Saturation [94-100 %] 98 % (11/22/19 1:00 PM) 97 % (11/22/19 10:56 AM) Pulse Rate [55-90 bpm] 113 bpm *H* (11/22/19 1:00 PM) 109 bpm *H* (11/22/19 10:56 AM) Blood Pressure [90-138/55-84 mm Hg] 132/ 76mm Hg (11/22/19 1:00 PM) 127/58mm Hg (11/22/19 10:56 AM) Respiratory Rate [16-30 br/min] 16 br/mi n (11/22/19 1:00 PM) 16 br/min (11/22/19 10:56 AM) Temperature [96.8-100.4 DegF] 98.0 DegF (11/22/19 1:00 PM) 98.1 DegF (11/22/19 10:56 AM) Mode of Delivery (Oxygen) Room air (11/22/19 1:00 PM) Room air (11/22/19 10:56 AM) Blood pressure sites Arm, left (11/22/19 1:00 PM) Arm, left (11/22/19 10:56 AM) Temperature Route Oral (11/22/19 1:00 PM) Oral (11/22/19 10:56 AM) Dry Weight 114.5 kg (11/22/19 10:56 AM) Weight Obtained Via Patient/family state d (11/22/19 10:56 AM) Dry Weight Obtained Via Patient/family s tated (11/22/19 10:56 AM) Social History Social History Type Response Smoking Status 10 or more cigarette s (1/2 pack or more)/day in last 30 days entered on: 09/07/18 Sex
--- OUTSIDE RECORDS SUMMARY | 2023-06-07 19:08 | XMS_ITS | Continuity of Care Document ---
Author Organization [facility] Address [address] [place] [address]- Care Team Providers Care Icer Hand Name Role Phone Katie RILEY, Narda Fonseca Primary Care Physici an [place] [facility] [place] - 07/23/[address] [address]- Discharge Disposition: A-D/C Home Attending Physician: Glenda [...] opioid drug. Start Date: 06/13/20 Status: Ordered cyclobenzaprine 10 mg oral tablet 10 mg, Tablet, By Mouth, 07/23/20 9:00:00 EDT Start Date: 07/23/20 Stop Date: 07/23/20 Status: Completed cyclobenzaprine 10 mg oral tablet 10 mg, Tablet, By Mouth, 07/23/20 15:00:00 EDT Start Date: 07/23/20 Stop Date: 07/23/20 Status: Completed cyclobenzaprine 5 mg oral tablet 1 tablet = 5 mg, By Mouth, 3 times a day, # 15 tablet, 0 Refills, Maintenance, 07/22/20 17:31:00 EDT, Tablet, [id number], Partial fill upon patient request if the prescription is for a schedule II opioid drug., 168, cm, ... Start Date: 07/22/20 Status: Ordered ibuprofen 600 mg oral tablet 600 mg, 1, tablet, By Mouth, 4 times a day, PRN, # 30 tablet, Refills 0, Tot. Refills 0, Maintenance, for pain, 07/22/20 17:32:00 EDT, Route to Pharmacy Electronically, [facility] [place] Partial fill upon patient request if the pres... Start Date: 07/22/20 Status: Ordered lithium 450 mg oral tablet, extended release 2 tablet = 900 mg, By Mouth, Daily at bedtime, 0 Refills, Maintenance, 06/13/20 22:23:00 EDT, Partial fill upon patient request if the prescription is for a schedule II opioid drug. Start Date: 06/13/20 Status: Ordered melatonin 3 mg oral tablet 1 tablet = 3 mg, By Mouth, Daily at bedtime, PRN for insomnia, # 60 tablet, 0 Refills, Maintenance,07/23/20 23:38:00 EDT, Tablet, Partial fill upon patient request if the prescription is for a schedule II opioid drug. Start Date: 07/23/20 Status: Ordered Multivitamin Daily in AM, 0 Refills, Maintenance, 06/13/20 22:23:00 EDT, Partial fill upon patient request if the prescription is for a schedule II opioid drug. Start Date: 06/13/20 Status: Ordered omeprazole 20 mg oral delayed release tablet 1 tablet = 20 mg, By Mouth, Daily, # 30 tablet, 0 Refills, Maintenance, 07/23/20 23:42:00 EDT, CR Tablet, Partial fill upon patient request if the prescription is for a schedule II opioid drug. Start Date: 07/23/20 Status: Ordered prazosin 2 mg oral capsule 1 capsule = 2 mg, By Mouth, Daily at bedtime, takes with 5 mg prazosin, # 30 capsule, 0 Refills, Maintenance, 04/22/20 14:44:00 EST, Capsule, [facility] Partial fill upon patient request if the prescription is for a schedule... Start Date: 04/22/20 Stop Date: 05/22/20 Status: Ordered prazosin 5 mg oral capsule 5 mg, 1, capsule, By Mouth, Daily at bedtime, # 30 capsule, Refills 0, Tot. Refills 0, Maintenance,04/22/20 14:44:00 EST, Route to Pharmacy Electronically, [facility] Partial fill upon patient request if the prescription is... Start Date: 04/22/20 Stop Date: 05/22/20 Status: Ordered Thorazine Tablet = 200 mg, 3 times a day, 0 Refills, Maintenance, 07/22/20 14:35:00 EDT, Partial fill upon patient request if the prescription is for a schedule II opioid drug. Start Date: 07/22/20 Status: Ordered Thorazine Tablet = 100 mg, By Mouth, [...] opioid drug. Start Date: 06/13/20 Status: Ordered Venlafaxine = 150 mg, By Mouth, Daily, 0 Refills, Maintenance, 07/22/20 14:36:00 EDT, Partial fill upon patientrequest if the prescription is for a schedule II opioid drug. Start Date: 07/22/20 Status: Ordered venlafaxine 75 mg oral capsule, [...] Range]: 1 2 3 Height 168 cm (07/22/20 11:59 PM) 168 cm (07/22/20 9:54 PM) Weight 137 kg (07/22/20 11:59 PM) 137 kg (07/22/20 9:54 PM) Oxygen Saturation [94-100 %] 98 % (6/11/21 6:00 AM) 98 % (07/22/20 11:59 PM) 98 % (07/22/20 9:54 PM) Pulse Rate [55-90 bpm] 91 bpm *H* (07/23/20 6:00 AM) 86 bpm (07/22/20 11:59 PM) 109 bpm *H* (07/22/20 9:54 PM) Body Mass Index [18.5-24.99] 48.54 *>HHI* (07/22/20 11:59 PM) Blood Pressure [90-138/55-84 mm Hg] 113/81mm Hg (07/23/20 6:00 AM) 111/78mm Hg (07/22/20 11:59 PM) 85/58mm Hg *L* (07/22/20 9:54 PM) Respiratory Rate [16-30 br/min] 20 br/min (07/23/20 8:10 AM) 17 br/min (07/23/20 6:00 AM) 18 br/min (07/23/20 12:01 AM) Temperature [96.8-100.4 DegF] 97.0 DegF (07/23/20 6:00 AM) 98.1 DegF (07/22/20 9:54 PM) Mode of Delivery (Oxygen) Room air (07/23/20 6:00 AM) Room air (07/22/20 11:59 PM) Room air (07/22/20 9:54 PM) Blood pressure sites Arm, left (07/22/20 9:54 PM) Temperature Route Oral (07/23/20 6:00 AM) Oral (07/22/20 9:54 PM) Dry Weight 137 kg (07/22/20 11:59 PM) 137 kg (07/22/20 9:54 PM) Social History Social History Type Response Smoking Status 10 or more cigarette s (1/2 pack or more)/day in last 30 days entered on: 09/07/18 Sex
--- OUTSIDE RECORDS SUMMARY | 2023-06-07 19:09 | XMS_ITS | Continuity of Care Document ---
Author Organization [facility] Address [address] [place] [address]- Care Team Providers Care Senior Mortgage Loan Processor Name Role Phone Katie RILEY, Nardajuan j Fonseca Primary Care Physici an [place] [facility] [place] 06[place]14/[address] [address]- Discharge Disposition: A-D/C Home Attending Physician: Parminder Villagran MD Admitting Physician: [...] 0 Refills, Maintenance, 04/22/20 14:44:00 EST, Capsule, [facility] Partial fill upon patient request if the prescription is for a schedule... Start Date: 04/22/20 Stop Date: 05/22/20 Status: Ordered prazosin 5 mg oral capsule 5 mg, 1, capsule, By Mouth, Daily at bedtime, # 30 capsule, Refills 0, Tot. Refills 0, Maintenance,04/22/20 14:44:00 EST, Route to Pharmacy Electronically, [facility] Partial fill upon patient request if the prescription is... Start Date: 04/22/20 Stop Date: 05/22/20 Status: Ordered Thorazine Tablet = 100 mg, [...] Range]: 1 2 3 Height 168 cm (06/14/20 8:59 AM) 168 cm (06/13/20 9:21 PM) 168 cm (06/13/20 9:09 PM) Weight 137 kg (06/14/20 8:59 AM) 137 kg (06/13/20 9:21 PM) 137 kg (06/13/20 9:09 PM) Oxygen Saturation [94-100 %] 97 % (06/14/20 8:59 AM) 97 % (06/13/20 9:21 PM) Pulse Rate [55-90 bpm] 104 bpm *H* (06/14/20 8:59 AM) 124 bpm *H* (06/13/20 9:21 PM) Body Mass Index [18.5-24.99] 48.54 *>HHI* (06/14/20 8:59 AM) 48.54 *>HHI* (06/13/20 9:21 PM) Blood Pressure [90-138/55-84 mm Hg] 118/71mm Hg (06/14/20 8:59 AM) 111/70mm Hg (06/13/20 9:21 PM) Respiratory Rate [16-30 br/min] 18 br/min (06/14/20 8:59 AM) 16 br/min (06/13/20 9:21 PM) Temperature [96.8-100.4 DegF] 97.5 DegF (06/14/20 8:59 AM) 97.5 DegF (06/13/20 9:21 PM) Mode of Delivery (Oxygen) Room air (06/14/20 8:59 AM) Room air (06/13/20 9:21 PM) Blood pressure sites Arm, right (06/14/20 8:59 AM) Arm, right (06/13/20 9:21 PM) Temperature Route Oral (06/14/20 8:59 AM) Oral (06/13/20 9:21 PM) Dry Weight 137 kg (06/14/20 8:59 AM) 137 kg (06/13/20 9:21 PM) 137 kg (06/13/20 9:09 PM) Social History Social History Type Response Smoking Status 10 or more cigarette s (1/2 pack or more)/day in last 30 days entered on: 09/07/18 Sex
--- OUTSIDE RECORDS SUMMARY | 2023-06-07 19:09 | XMS_ITS | Continuity of Care Document ---
Author Organization [facility] Address [address] [place] [id number] Care Team Providers Care Women'S Swim Coach Name Role Phone Yovanny RILEY, Nikki Primary Care Physician [phone] [place] [facility] [place](s): 06/01/23 - 06/04/[address] [address]- Encounter Diagnosis Borderline personality disorder(Final) - 05/31/23 Discharge Disposition: A-D/C Home Attending Physician: Edward ESTES, Wesley Church Admitting Physician: Tanner Travis Referring Physician: Not on Staff, Referring MD [...] 0 Refills, Maintenance, 04/03/23 8:17:00 EST, Tablet, [facility]-[id number], Partial fill upon patient request if the prescription is for a schedule II opioid drug., 167, cm, 04/02/23 20:... Start Date: 04/03/23 Status: Ordered duloxetine 60 mg oral enteric coated capsule = 60 mg, By Mouth, Daily, # 30 capsule, 0 Refills, Maintenance, 04/03/23 8:17:00 EST, Capsule, [facility]-[id number], Partial fill upon patient request if the prescription is for a schedule II opioid drug., 167, cm, 04/02/23 20:16:00 EST,... Start Date: 04/03/23 Status: Ordered Flexeril 10 mg oral tablet 5 mg, Tablet, By Mouth, 06/04/23 9:00:00 EDT Start Date: 06/04/23 Stop Date: 06/04/23 Status: Completed haloperidol 5 mg oral tablet 5 mg, By Mouth, Daily, # 30 tablet, Refills 0, Tot. Refills 0, Maintenance, 04/03/23 8:19:00 EST, Route to Pharmacy Electronically, [facility]-[id number], Partial fill upon patient request if the prescription is for a schedule II opioid d... Start Date: 04/03/23 Status: Ordered haloperidol 5 mg oral tablet 5 mg, By Mouth, 2 times a day, PRN, # 60 tablet, Refills 0, Tot. Refills 0, Maintenance, Anxiety, 04/03/23 8:20:00 EST, Route to Pharmacy Electronically, [facility]-[id number], Partial fill upon patient request if the [...] Refills, Maintenance, 04/03/23 8:17:00 EST, ER Tablet, [facility]-[id number], Partial fill upon patient request if the [...] 04/03/23 8:18:00 EST, Route to Pharmacy Electronically, [facility]-[id number], Partial fill upon patient request if the prescription is for a schedule... Start Date: 04/03/23 Status: Ordered topiramate 50 mg oral tablet = 150 mg, By Mouth, Daily at bedtime, # 90 tablet, 0 Refills, Maintenance, 04/03/23 8:18:00 EST, Tablet, [facility]-[id number], Partial fill upon patient request if the prescription is for a schedule II opioid drug., 167, cm, 04/02/23 20:... Start Date: 04/03/23 Status: Ordered traZODone 50 mg oral tablet 50 mg, By Mouth, Daily at bedtime, PRN, # 30 tablet, Refills 0, Tot. Refills 0, Maintenance, Sleep,04/03/23 8:19:00 EST, Route to Pharmacy Electronically, [facility]-[id number], Partialfill upon patient request if the prescription [...] Range]: 1 2 3 Height 167 cm (06/04/23 7:21 AM) 167 cm (06/04/23 5:40 AM) 167 cm (06/03/23 11:10 PM) Weight 149.4 kg (06/01/23 2:24 AM) 149.4 kg (06/01/23 2:19 AM) 141 kg (05/31/23 7:04 PM) Oxygen Saturation [94-100 %] 97 % (06/04/23 8:11 AM) 97 % (06/04/23 7:21 AM) 98 % (06/04/23 5:40 AM) Pulse Rate [55-90 bpm] 73 bpm (06/04/23 8:11 AM) 74 bpm (06/04/23 7:21 AM) 68 bpm (06/04/23 5:40 AM) Body Mass Index [18.5-24.99 kg/m2] 53.57 kg/m2 *>HHI* (06/01/23 2:24 AM) 53.57 kg/m2 *>HHI* (06/01/23 2:19 AM) Blood Pressure [90-138/55-84 mm Hg] 118/69mm Hg (06/04/23 8:11 AM) 106/61mm Hg (06/04/23 7:21 AM) 97/59mm Hg (06/04/23 5:40 AM) Respiratory Rate [16-30 br/min] 16 br/min (06/04/23 9:22 AM) 18 br/min (06/04/23 8:11 AM) 18 br/min (06/04/23 7:21 AM) Temperature [96.8-100.4 DegF] 97.5 DegF (06/04/23 8:11 AM) 97.8 DegF (06/04/23 7:21 AM) 98.8 DegF (06/04/23 5:40 AM) Mode of Delivery (Oxygen) Room air (06/04/23 8:11 AM) Room air (06/04/23 7:21 AM) Room air (06/04/23 5:40 AM) Blood pressure sites Arm, right (06/04/23 8:11 AM) Arm, left (06/04/23 7:21 AM) Arm, right (06/04/23 5:40 AM) Temperature Route Oral (06/04/23 8:11 AM) Oral (06/04/23 7:21 AM) Oral (06/04/23 5:40 AM) Dry Weight 149.4 kg (06/01/23 2:24 AM) 141 kg (05/31/23 7:04 PM) Weight Obtained Via Bed scale (06/01/23 2:24 AM) Bed scale (06/01/23 2:19 AM) Patient/family stated (05/31/23 7:04 PM) Dry Weight Obtained Via Bed scale (06/01/23 2:24 AM) Social History Social History Type Response Smoking Status 10 or more cigarette s (1/2 pack or more)/day in last 30 days entered on: 09/07/18 Sex Admission evaluation note * Tanner Travis: PERFORM, MODIFY, MODIFY, MODIFY Event Display: Admission Note Authored Date: [id number] Patient: ??IDRIS WALTER ? Age:??22 Years?Sex:??Female?:??2000?? Chief Complaint/Reason for Consultation OD History of Present Illness DOS: 05/31/2023. Idris Walter, a 22-year-old transgender patient with a past medical history significant for borderline personality disorder, depression, and obesity, was evaluated following an intentional overdose of 50 tablets of Benadryl (25 mg each). On arrival, the patient was hypertensive, initially urinating during the examination, and exhibited no agitation. The ED assessment noted vital signs with significant tachycardia (pulse rates of 146 bpm and 142 bpm at different times) and respiratory rates of 31 and 22 breaths per minute. The physical examination showed the patient alert,without acute distress, and stable across various systems including cardiovascular and neurological evaluations. The patient was slightly confused and selectively mute, interacting minimally but was responsive to some questions. Initial lab results revealed normal white and red blood cell counts with slightly high hemoglobin and hematocrit levels, low potassium (3.4 mmol/L), and high lactate (3.1mmol/L). An EKG confirmed sinus tachycardia with a prolonged QTc of [address] elevation or significant QRS widening. Given the risk of seizures from high-dose Benadryl intake, the patient was placed on a seizure protocol and monitored for anticholinergic effects like urinary retention, although subsequent observations confirmed the ability to urinate. Management in the ED included hydration, electrolyte repletion with magnesium and potassium, and continuous cardiac monitoring. Serial EKGs were planned, and poison control recommended the same management approach. The patient's conditionwarranted an overnight admission for further observation on a hospital monitor, with seizure precautions and potential use of benzodiazepines if necessary. Review of Systems All other systems were reviewed and are negative. Objective Measurements?? Height: 167 cm (06/01/23) Weight: 149.4 kg (06/01/23) Dry Weight: 149.4 kg (06/01/23) Body Mass Index:??53.57 kg/m2??Critical (06/01/23) ? Vital Signs?? Temperature: 98.6 DegF (06/01/23 02:24:00) Temperature Route: Oral (06/01/23:24:00) Pulse Rate:??106 bpm??High (06/01/23:24:00) Respiratory Rate: 20 br/min (06/01/23:24:00) Systolic Blood Pressure: 120 mm Hg (06/01/23:24:00) Diastolic Blood Pressure: 75 mm Hg (06/01/23:24:00) Blood pressure sites: Arm, right (06/01/23:24:00) Mean Arterial Pressure: 90 mm Hg (06/01/23:24:00) Pulse Pressure: 45 mm Hg (06/01/23 02:24:00) Oxygen Saturation: 96 % (06/01/23:24:00) Mode of Delivery (Oxygen): Room air (04/19/24 02:24:00) Early Warning Score: 1 (06/01/23 02:51:43) ? Perfusion Assessment Capillary Refill: < 3 seconds (05/31/23 19:18:00) Cardiac Rhythm: Sinus tachycardia (06/01/23 01:46:00) Cardiovascular: WNL (06/01/23 02:55:00) Cardiovascular Comment: hospital monitor in place (05/31/23 19:18:00) Cardiovascular Symptoms: Other: tachycardic (05/31/23 21:35:00) Heart Rhythm: Regular (05/31/23 19:18:00) Nail Bed Color, Fingers: [place] (05/31/23 19:18:00) Skin Temperature Lower Extremities: Warm (05/31/23 19:18:00) Skin Temperature Upper Extremities: Warm (05/31/23 19:18:00) ? Pain Scores 1 - 10 Pain Scale Score: 0 (19:04) ? Ventilator Settings?? No qualifying data available. ?? Intake/Output? 05/31 00:09 05/31 07:00 05/30 07:00 05/29 07:00 05/28 07:00 ?? 05/31 05:39 05/31 05:39 05/31 06:59 05/30 06:59 05/29 06:59 Intake ? 50 ?0 ? 50 ?0 ?0 Output ?0 ?0 ?0 ?0 ?0 Net Total ? 50 ?0 ? 50 ?0 ?0 ? Precautions Constant Javascript Ui Developer Seizure Precautions ? David Coma Scale David Coma Score: 15 (06/01/23 02:55:00) Motor Response-Adult: Obeys commands (06/01/23 02:55:00) Response Eye Opening: Spontaneously (06/01/23 02:55:00) Verbal Response-Adult: Oriented and converses (06/01/23 02:55:00) ? Basic ADLs Ambulatory devices needed: Cane (05/31/23) ? Mobility & Ambulation Level Mobility & Ambulation Level Ambulatory devices needed: Cane (05/31/23) ?? Therapeutic Activity Therapeutic Activities/Mobility/Balance?? No qualifying data available. ? Physical Exam Constitutional: Alert, in no acute distress. Head: Normocephalic. Eyes: Pupils are equal, round and reactive to light. Extraocular muscles intact. No pallor or scleral icterus Ear, Nose and Throat: mucous membranes moist. Ears and nose - no obvious deformities Trachea midline. Neck: Supple, Full range of motion.No JVD or bruits. Respiratory:??Clear to auscultation. No wheezing or rhonchi.??No use of accessory muscles. No tactile fremitus.?? Cardiovascular:??PMI not visible. S1 S2 regular. No murmurs, rubs or gallops. Gastrointestinal:??Abdomen soft, non-tender, non-distended. Normal bowel sounds. No pulsatile mass.No hepatosplenomegaly. Genitourinary:??No costovertebral angle tenderness. Extremities: No lower extremity pitting edema. No cyanosis or clubbing. Neurologic:??AAOx3, Cranial nerves II-XII grossly intact. Speech normal, no facial droop. No focal neurological deficits. Moves all extremities spontaneously. Psychiatric: Normal mood and affect. Assessment/Plan Diagnoses Borderline personality disorder ??(F60.3) Overdose ??(T50.901A) ?? Borderline personality disorder (F60.3):?? Overdose (T50.901A):?? She was admitted to telemetry as inpatient. Continue with IV fluids. Monitor intake and output. Bladder scan as needed. Monitor electrolytes and supplement accordingly. Seizure precautions. Serial EKGs. Ativan as needed Will hold on order??home medications??that could potentially have anticholinergic??effect. Constant manager scheduling. Follow-up with morning labs??and trend lactate. cone worker consult. Psych consult. ?? VTE Prophylaxis:??Heparin subcutaneous ?VTE Prophylaxis Assessment:??VTE Prophylaxis Ordered ?? Code Status:??Full code. ?I spent a total of 75 minutes today reviewing the chart/medical records, speaking with the patient, formulating and discussing the treatment plan, and documenting the findings and encounter. ? Histories Allergies Allergies ?(Active and Proposed Allergies Only) Thorazine? (Severity: Unknown severity, Onset: Unknown) ?Reactions: Skin rash Geodon? (Severity: Unknown severity, Onset: Unknown) ?Reactions: full body tremors Trileptal? (Severity: Unknown severity, Onset: Unknown) ? Past Medical History/Problem List Active Problems(13) Acute COVID-19 Alcohol use Borderline personality disorder COVID-19 Depression NATHAN (generalized anxiety disorder) History of [...] Nutrition/Health Details:??Diet: lactose free. Sexual Details:??Gender identity: Identifies as male. ??Preferred pronoun: He/him. Substance Abuse Details:??Use: Never. Tobacco Details:??Use: 10 or more cigarettes (1/2 pack or more)/day in last 30 days. Electronic Cigarette/Vaping Details:??Electronic Cigarette Use: Never. ? Psychosocial History ? Family History Father: Diabetes mellitus; Hypertension Mother: Cancer; Diabetes mellitus; Hypertension Sister: Depression ? Travel History Travel Outside [facility]: No ? Medications Home Medications Acetaminophen (Tylenol 325 mg oral tablet)?650?Milligram?By Mouth?Every 6 hours?as needed?Pain , Moderate Desmopressin (desmopressin 0.1 mg oral tablet)?0.2?Milligram?By Mouth?Daily at bedtime Duloxetine (duloxetine 60 mg oral enteric coated capsule)?60?Milligram?By Mouth?Daily Haloperidol (haloperidol 5 mg oral tablet)?5?Milligram?By Mouth?Daily Haloperidol (haloperidol 5 mg oral tablet)?5?Milligram?By Mouth?2 times a day?as needed?Anxiety HydrOXYzine (hydrOXYzine pamoate 50 mg oral capsule)?50?Milligram?By Mouth?Every 6 hours?as needed?Anxiety Ibuprofen (ibuprofen 400 mg oral tablet)?400?Milligram?By Mouth?3 times a day?as needed?Pain , Mild Methylphenidate (methylphenidate 27 mg oral tablet, extended release)?27?Milligram?By Mouth?Daily Milk of Magnesia (Milk of Magnesia Liquid)?30?Milliliter?By Mouth?2 times a day?as needed?Constipation Prazosin (prazosin 1 mg oral capsule)?1?Milligram?By Mouth?Daily at bedtime Topiramate (topiramate 50 mg oral tablet)?150?Milligram?By Mouth?Daily at bedtime Trazodone (traZODone 50 mg oral tablet)?50?Milligram?By Mouth?Daily at bedtime?as needed?Sleep ? Inpatient Medications Medications (11) Active SCHEDULED: (2) Heparin 5000 units/mL Inj (1 mL) (Heparin Inj) ??7,500 units 1.5 mL, Subcutaneous Injection, 3 times a day NaCl 0.9% Flush 3ml (NaCL 0.9% Flush) ??3 mL, IV Push, Every 8 hours CONTINUOUS: (1) Lactated Ringers (1000 mL) Cont IV 1,000 mL (Lactated Ringers 1,000 mL) ??1,000 mL, IV Infusion, 150 mL/hr PRN: (8) Acetaminophen 325 mg Tablet (Acetaminophen Tablet) ??650 mg, By Mouth, Every 4 hours Docusate Sodium 100 mg Capsule (Docusate Sodium Capsule) ??100 mg 1 capsule, By Mouth, 2 times a day Melatonin 3 mg Tablet (Melatonin Tablet) ??3 mg, By Mouth, Daily at bedtime NaCl 0.9% Flush 3ml (NaCL 0.9% Flush) ??3 mL, IV Push, Every 8 hours Ondansetron 2mg/mL Inj (2mL Vial) (Ondansetron Inj) ??4 mg, IV Push, Every 4 hours Polyethylene Glycol 17 Gm Powder (MiraLax Powder) ??17 Gm 1 pack/packet, By Mouth, Daily Senna Tablet ??8.6 mg 1 tablet, By Mouth, 2 times a day Simethicone 80 mg Chewable Tablet (Simethicone Tablet) ??80 mg, Chew, 3 times a day ? Vaccinations and Immunoprophylaxis influenza virus vaccine, inactivated: 0.5 mL (12/17/21 10:20:00) influenza virus vaccine, inactivated: 0.5 mL (11/11/20 11:30:00) SARS-CoV-2 (COVID-19) mRNA BNT-162b2 vac: 0.3 Unknown (04/13/20 07:00:00) SARS-CoV-2 (COVID-19) mRNA BNT-162b2 vac: 0.3 Unknown (03/02/20 07:00:00) SARS-CoV-2 (COVID-19) mRNA-1273 vaccine: 0 Unknown (01/25/21 07:00:00) tetanus/diphtheria/pertussis, acel(Tdap): 0.5 mL (10/19/21 03:04:00) tetanus/diphtheria/pertussis, acel(Tdap): 0.5 mL (12/22/19 15:46:00) ? Results Recent Labs BLOOD COUNT & DIFF WBC 10.2 k/mm3 ()?? 05/31/2023 19:47 RBC 5.55 m/mm3 (High)?? 05/31/2023 19:47 Hgb 15.7 Gm/dL (High)?? 05/31/2023 19:47 Hct 48.4 % (High)?? 05/31/2023 19:47 MCV 87.2 femtoliters ()?? 05/31/2023 19:47 MCH 28.3 pg ()?? 05/31/2023 19:47 MCHC 32.4 g/dL (Low)?? 05/31/2023 19:47 Platelet Count 215 k/mm3 ()?? 05/31/2023 19:47 RDW-SD 41.1 femtoliters ()?? 05/31/2023 19:47 MPV 12.3 femtoliters ()?? 05/31/2023 19:47 Nucleated RBC (Automated) 0.0 #/100 WBC'S ()?? 05/31/2023 19:47 Abs. NRBC 0.0 k/mm3 ()?? 05/31/2023 19:47 Abs. Neut 6.5 k/mm3 ()?? 05/31/2023 19:47 Abs. Lymph 2.6 k/mm3 ()?? 05/31/2023 19:47 Abs. [place] 0.9 k/mm3 ()?? 05/31/2023 19:47 Abs. Eo 0.1 k/mm3 ()?? 05/31/2023 19:47 Abs. Baso 0.1 k/mm3 ()?? 05/31/2023 19:47 Neut % 63.6 % ()?? 05/31/2023 19:47 Lymph % 25.5 % ()?? 05/31/2023 19:47 [place] % 8.7 % ()?? 05/31/2023 19:47 Eos % 1.2 % ()?? 05/31/2023 19:47 Baso % 0.6 % ()?? 05/31/2023 19:47 Imm Gran 0.4 % ()?? 05/31/2023 19:47 Abs. Imm Gran 0.0 k/mm3 ()?? 05/31/2023 19:47 ?? CHEM GENERAL Sodium 141 mmol/L ()?? 05/31/2023 19:47 Potassium 3.4 mmol/L (Low)?? 05/31/2023 19:47 Chloride 108 mmol/L (High)?? 05/31/2023 19:47 Bicarbonate Level 20 mmol/L (Low)?? 05/31/2023 19:47 Anion Gap 13 ()?? 05/31/2023 19:47 Glucose Level 88 mg/dL ()?? 05/31/2023 19:47 Glucose, POC 97 mg/dL ()?? 06/01/2023 02:37 BUN 10 mg/dL ()?? 05/31/2023 19:47 Creatinine-Blood 0.8 mg/dL ()?? 05/31/2023 19:47 Estimated GFR Creatinine 103 ML/MIN/1.73 M2 ()?? 05/31/2023 19:47 Calcium 10.0 mg/dL ()?? 05/31/2023 19:47 Magnesium 1.9 mg/dL ()?? 05/31/2023 19:47 Protein, Total 8.0 Gm/dL ()?? 05/31/2023 19:47 Albumin 4.5 Gm/dL ()?? 05/31/2023 19:47 AG Ratio 1.3 ()?? 05/31/2023 19:47 Alkaline Phosphatase 89 units/L ()?? 05/31/2023 19:47 AST (SGOT) 26 units/L ()?? 05/31/2023 19:47 ALT (SGPT) 40 units/L (High)?? 05/31/2023 19:47 Bilirubin, Total 0.3 mg/dL ()?? 05/31/2023 19:47 Lactate 3.1 mmol/L (High)?? 05/31/2023 19:47 ?? ENDOCRINE/TUMOR MARKER TSH 1.82 uIU/mL ()?? 05/31/2023 19:47 Blood <1 mIU/mL ()?? 05/31/2023 19:47 ?? FLUID STUDIES Hold Other SPECIMEN DISCARDED AFTER 1 WEEK ()?? 05/31/2023 19:47 ?? HEME OTHER Hold Blue Top SPECIMEN DISCARDED AFTER 4 HOURS. ()?? 05/31/2023 19:47 ?? MISC. CHEMISTRY Hold Gel Top SPECIMEN DISCARDED AFTER 1 WEEK ()?? 05/31/2023 19:47 ?? TOXICOLOGY/TDM Ethanol, Serum or Plasma NONE DETECTED mg/dL ()?? 05/31/2023 19:47 Salicylate Level <0.3 mg/dL (Low)?? 05/31/2023 19:47 Barbiturate Screen, Urine NONE DETECTED ()?? 05/31/2023 22:21 Cannabinoid Screen, Urine NONE DETECTED ()?? 05/31/2023 22:21 Cocaine Metabolite Screen, Urine NONE DETECTED ()?? 05/31/2023 22:21 Benzodiazepine Screen, Urine NONE DETECTED ()?? 05/31/2023 22:21 Amphetamine Screen, Urine NONE DETECTED ()?? 05/31/2023 22:21 Opiate Screen, Urine NONE DETECTED ()?? 05/31/2023 22:21 Acetaminophen Level <5 mg/L (Low)?? 05/31/2023 19:47 ?? UA/URINALYSIS Appear/Color, Urine COLORLESS ()?? 05/31/2023 22:21 Clarity CLEAR (N)?? 05/31/2023 22:21 Specific [place], Urine <1.005 ()?? 05/31/2023 22:21 pH, Urine 6.0 ()?? 05/31/2023 22:21 Albumin, Urine NEGATIVE (N)?? 05/31/2023 22:21 Glucose, Urine NEGATIVE (N)?? 05/31/2023 22:21 Ketones, Urine NEGATIVE (N)?? 05/31/2023 22:21 Bilirubin, Urine NEGATIVE (N)?? 05/31/2023 22:21 Hemoglobin, Urine NEGATIVE (N)?? 05/31/2023 22:21 Nitrite, Urine NEGATIVE (N)?? 05/31/2023 22:21 Leukocyte, Urine NEGATIVE (N)?? 05/31/2023 22:21 Urobilinogen NORMAL mg/dL (N)?? 05/31/2023 22:21 Hold Urine Culture Testing available 48 hours from time of collection. ()?? 05/31/2023 22:21 ?? URINE OTHER Est Creatinine Clearance 100.52 mL/min ()?? 05/31/2023 20:23 ? Abnormal Labs ?? BLOOD COUNT & DIFF Abs. Imm Gran?0.0 k/mm3 ()?05/31/2023 19:47 Abs. NRBC?0.0 k/mm3 ()?05/31/2023 19:47 Hct?48.4 % (High)?05/31/2023 19:47 Hgb?15.7 Gm/dL (High)?05/31/2023 19:47 Imm Gran?0.4 % ()?05/31/2023 19:47 MCHC?32.4 g/dL (Low)?05/31/2023 19:47 Nucleated RBC (Automated)?0.0 #/100 WBC'S ()?05/31/2023 19:47 RBC?5.55 m/mm3 (High)?05/31/2023 19:47 RDW-SD?41.1 femtoliters ()?05/31/2023 19:47 ?? CHEM GENERAL AG Ratio?1.3 ()?05/31/2023 19:47 ALT (SGPT)?40 units/L (High)?05/31/2023 19:47 Bicarbonate Level?20 mmol/L (Low)?05/31/2023 19:47 Chloride?108 mmol/L (High)?05/31/2023 19:47 Estimated GFR Creatinine?103 ML/MIN/1.73 M2 ()?05/31/2023 19:47 Lactate?3.1 mmol/L (High)?05/31/2023 19:47 Potassium?3.4 mmol/L (Low)?05/31/2023 19:47 ?? ENDOCRINE/TUMOR MARKER Blood ?<1 mIU/mL ()?05/31/2023 19:47 ?? FLUID STUDIES Hold Other?SPECIMEN DISCARDED AFTER 1 WEEK ()?05/31/2023 19:47 ?? HEME OTHER Hold Blue Top?SPECIMEN DISCARDED AFTER 4 HOURS. ()?05/31/2023 19:47 ?? MISC. CHEMISTRY Hold Gel Top?SPECIMEN DISCARDED AFTER 1 WEEK ()?05/31/2023 19:47 ?? TOXICOLOGY/TDM Acetaminophen Level?<5 mg/L (Low)?05/31/2023 19:47 Amphetamine Screen, Urine?NONE DETECTED ()?05/31/2023 22:21 Barbiturate Screen, Urine?NONE DETECTED ()?05/31/2023 22:21 Benzodiazepine Screen, Urine?NONE DETECTED ()?05/31/2023 22:21 Cannabinoid Screen, Urine?NONE DETECTED ()?05/31/2023 22:21 Cocaine Metabolite Screen, Urine?NONE DETECTED () ?05/31/2023 22:21 Ethanol, Serum or Plasma?NONE DETECTED mg/dL ()?05/31/2023 19:47 Opiate Screen, Urine?NONE DETECTED ()?05/31/2023 22:21 Salicylate Level?<0.3 mg/dL (Low)?05/31/2023 19:47 ?? UA/URINALYSIS Albumin, Urine?NEGATIVE (N)?05/31/2023 22:21 Appear/Color, Urine?COLORLESS ()?05/31/2023 22:21 Bilirubin, Urine?NEGATIVE (N)?05/31/2023 22:21 Clarity?CLEAR (N)?05/31/2023 22:21 Glucose, Urine?NEGATIVE (N)?05/31/2023 22:21 Hemoglobin, Urine?NEGATIVE (N)?05/31/2023 22:21 Hold Urine Culture?Testing available 48 hours from time of collection. () ?05/31/2023 22:21 Ketones, Urine?NEGATIVE (N)?05/31/2023 22:21 Leukocyte, Urine?NEGATIVE (N)?05/31/2023 22:21 Nitrite, Urine?NEGATIVE (N)?05/31/2023 22:21 Specific [place], Urine?<1.005 ()?05/31/2023 22:21 Urobilinogen?NORMAL mg/dL (N)?05/31/2023 22:21 ?? Note: Critical results are displayed in red. ? Blood Glucose Trend Glucose Level: 88 mg/dL (05/31/23 19:47:00) Glucose, POC: 97 mg/dL (06/01/23 02:37:00) ? Coagulation Profile?? No qualifying data available. ?? LFT Albumin: 4.5 Gm/dL (19:47) Alkaline Phosphatase: 89 units/L (19:47) ALT (SGPT):??40 units/L??High (19:47) AST (SGOT): 26 units/L (19:47) Bilirubin, Total: 0.3 mg/dL (19:47) ?? Urinalysis Albumin, Urine: NEGATIVE (22:21) Appear/Color, Urine: COLORLESS (22:21) Bilirubin, Urine: NEGATIVE (22:21) Clarity: CLEAR (22:21) Est Creatinine Clearance: 100.52 mL/min (20:23) Glucose, Urine: NEGATIVE (22:21) Hemoglobin, Urine: NEGATIVE (22:21) Hold Urine Culture: Testing available 48 hours from time of collection. (22:21) Ketones, Urine: NEGATIVE (22:21) Leukocyte, Urine: NEGATIVE (22:21) Nitrite, Urine: NEGATIVE (22:21) pH, Urine: 6 (22:21) Specific [place], Urine: <1.005 (22:21) Urobilinogen: NORMAL (22:21) ? Blood Gases?? No qualifying data available. ?? EKG study * Event Display: ECG 12-Lead Authored Date: Please click on pdf link to open report * Event Display: ECG 12-Lead Authored Date: Ventricular Rate: 108 BPM Atrial Rate: 108 BPM P-R Interval: 180 ms QRS Duration: 102 ms Q-T Interval: 350 ms QTC Calculation(Bazett): 469 ms P [place]: 57 degrees R [place]: 60 degrees T [place]: 31 degrees Sinus tachycardia Otherwise normal ECG When compared with ECG of 01-JUN-2023 02:50, No significant change was found Confirmed by CHRISTEN NÚÑEZ ([id number]) on 06/01/2023 7:35:03 AM Evans: CHRISTEN NÚÑEZ * Event Display: ECG 12-Lead Authored Date: Please click on pdf link to open report * Event Display: ECG 12-Lead Authored Date: Ventricular Rate: 99 BPM Atrial Rate: 99 BPM P-R Interval: 186 ms QRS Duration: 100 ms Q-T Interval: 346 ms QTC Calculation(Bazett): 444 ms P [place]: 51 degrees R [place]: 44 degrees T [place]: 25 degrees Normal sinus rhythm Normal ECG When compared with ECG of 31-May-2023 Heart rate has decreased Confirmed by CHRISTEN NÚÑEZ ([id number]) on 06/01/2023 7:35:55 AM Evans: CHRISTEN NÚÑEZ * Event Display: ECG 12-Lead Authored Date: Please click on pdf link to open report * Event Display: ECG 12-Lead Authored Date: Ventricular Rate: 139 BPM Atrial Rate: 139 BPM P-R Interval: 142 ms QRS Duration: 94 ms Q-T Interval: 378 ms QTC Calculation(Bazett): 575 ms P [place]: 46 degrees R [place]: 47 degrees T [place]: 28 degrees Sinus tachycardia Otherwise normal ECG When compared with ECG of 31-MAY-2023 19:31, No significant change was found Confirmed by CHRISTEN NÚÑEZ ([id number]) on 06/01/2023 7:34:10 AM Evans: CHRISTEN NÚÑEZ Hospital Progress note * Jackie Woods RN: VERIFY, PERFORM, SIGN Event Display: Progress [facility] Authored Date: Patient: IDRIS WALTER Age: 22 years Sex: Female : 2000 Associated Diagnoses: None Author: Jackie Woods RN Findings Problem Related to Alteration in Psychosocial : Alteration in Psychosocial Function/new 06/04/2023 10:00 EDT Alteration in Psychosocial Related to Suicidal Goals & Outcomes, Psychosocial Psychosocial support will be provided to Pt/S.O. as needed, Pt will identify stressors leading up to event, Pt will state importance of adhering to medication regime, Pt/caregiver will be offered appropriate resources & support, Pt/caregiver will express feelings/needs/fears /concerns, Pt/caregiver will maintain/obtain psychological stability, Pt/caregiver will participate in coping skill counseling Interventions, Psychosocial Assess psychosocial needs, Assess environment for safety, Assess pt's suicidal ideation BH Goals/Interventions, Psychosocial Yes Psychosocial, Problem Start 06/01/2023 7:46 Reviewed Plan with, Psychosocial Patient Patient Progression, Psychosocial Pt progressing according to plan . Nursing Data Biophysical Data. Narrative/Incidental A&Ox4. vss. afebrile. denies cp/palp. tele showing SR,. borderline 1st deg HB. +csm. no edema noted. lung sounds CTA. denies sob/cough. spo2 wnl on ra. abd soft/nt. +bsx4. zofran x1 this morning for nausea with good effect. denies v/d. elian po. voiding in br without concerns. ambulating with x1 assist and cane. pt denies SI at this time. calm and cooperative with care. 1:1 at bedside for safety. plan to d/c later today to medical respite. . Discharge Information Case Management Discharge Plan : Case Management Discharge Plan Data 05/31/2023 8:36 EDT Discharge Level of Care at Discharge Home/Usp/Foster Care * Saman RN, Melissa: PERFORM Event Display: Progress Note Hospital Authored Date: Pt woke up slightly when this RN went into the room. Pt denied any needs at that time. Brief assessment done so that pt could go back to sleep. Pt on 1:1 for SI, pt denied any urges to self harm at this time. Pt returned to sleep. When RN entered at 6 am, pt was still sleeping. Heparin deferred until morning assessment and introduction. Report given to SCOTT Greer who had agreed to administer subcutaneous heparin per pt preference. Pt on telemetry SR with slight 1AVB and QTc of 410. Seizure pads inplace. * Nikki Russell: PERFORM, MODIFY, MODIFY, MODIFY, SIGN, VERIFY Event Display: Progress Note Hospital Authored Date: Patient: IDRIS WALTER Age: 22 years Sex: Female : 2000 Associated Diagnoses: None Author: Nikki Russell Findings Problem Related to Alteration in Psychosocial : Alteration in Psychosocial Function/new 06/03/2023 5:00 EDT Alteration in Psychosocial Related to Suicidal Goals & Outcomes, Psychosocial Psychosocial support will be provided to Pt/S.O. as needed, Pt will identify stressors leading up to event, Pt will state importance of adhering to medication regime, Pt/caregiver will be offered appropriate resources & support, Pt/caregiver will express feelings/needs/fears /concerns, Pt/caregiver will maintain/obtain psychological stability, Pt/caregiver will participate in coping skill counseling Interventions, Psychosocial Assess psychosocial needs, Assess readiness to learn needed lifestyle changes, Assess/monitor level of consciousness BH Goals/Interventions, Psychosocial Yes Psychosocial, Problem Start 06/01/2023 7:46 Reviewed Plan with, Psychosocial Patient Patient Progression, Psychosocial Plan Initiation . Nursing Data Cardiac Data. : Cardiac Data. 06/03/2023 18:08 EDT Nail Bed Color, Fingers [place] Nail Bed Color, Toes [place] Skin Temperature Upper Extremities Warm Skin Temperature Lower Extremities Warm Cardiac Rhythm Normal sinus rhythm awake overnight monitor Yes Cardiovascular WNL except . Integumentary Data. : Integumentary Data. 06/03/2023 18:25 EDT Back Left Lateral Skin Abnormality Type: Rash Wound Assessment Activity: New wound assessment Wound Photo Uploaded: Yes Pressure Point: None Wound Present on Admission: No Rash Appearance: Raised, Reddened Wound Dressing: Open to air 06/03/2023 18:08 EDT Skin Symptoms Itching, Other: Rash to Left lower back Skin Integrity Intact Activity Walks occasionally Integumentary WNL except . Vital Signs : VITAL SIGNS SECTION 06/03/2023 19:10 EDT Temperature 98.0 DegF Temperature Route Oral Pulse Rate 75 bpm Respiratory Rate 16 br/min Systolic Blood Pressure 115 mm Hg Diastolic Blood Pressure 72 mm Hg Blood pressure sites Arm, left Mean Arterial Pressure 86 mm Hg Pulse Pressure 43 mm Hg Oxygen Saturation 98 % Mode of Delivery (Oxygen) Room air 06/03/2023 15:37 EDT Early Warning Score 0.00 06/03/2023 15:37 EDT Temperature 98.5 DegF Temperature Route Oral Pulse Rate 72 bpm Respiratory Rate 16 br/min Systolic Blood Pressure 113 mm Hg Diastolic Blood Pressure 61 mm Hg Blood pressure sites Arm, left Mean Arterial Pressure 78 mm Hg Pulse Pressure 52 mm Hg Oxygen Saturation 98 % Mode of Delivery (Oxygen) Room air . Narrative/Incidental Pt A&Ox4. lethargic this shift. Pt reporting mild mid back, and bilat knee pain. States it's improved from yesterday, states they think it's better because they got some sleep and walked a few times today. Denied any need for PRN PO pain med's. Pt has rash on left side of back. reports it feels itchy and worse when they lay on it. [employer] Ravinder aware, image uploaded to pt chart. no new orders. Pt uses a cane to ambulate. 1:1 maintained for pt safety. Pt denies any unmet needs. Safety checks in place. call light within reach. . Discharge Information Case Management Discharge Plan : Case Management Discharge Plan Data 05/31/2023 8:36 EDT Discharge Level of Care at Discharge Home/Usp/Foster Care Note * Jackie Woods RN: PERFORM Event Display: Discharge/Transfer Note Hospital Authored Date: [id number] Nursing Discharge Note Entered On: 06/04/2023 13:43 EDT Performed On: 06/04/2023 13:43 EDT by Jackie Woods RN Nursing Discharge Note 2 Discharge Time : 06/04/2023 13:43 EDT Discharge Level of Care at Discharge : Home/Usp/Foster Care Patient Left Unit Via : Ambulatory Patient Accompanied Off Unit with : Responsible adult DC Instructions Provided & Signed by Pt : Yes Patient Understands D/C Instructions : Yes Patient Instructions Discharge Signed : Yes Did Pt have Specialty Bed or Wound Vac : No Jackie Woods RN - 06/04/2023 13:43 EDT * Edward ESTES, Wesley Church: PERFORM Event Display: Discharge/Transfer Note Hospital Authored Date: [id number] Patient: ??MORGAN, IDRIS ? Age:??22 Years?Sex:??Female?:??2000?? Patient Information Discharge Location: [facility] Primary Care Physician: Nikki Hairston NP Admit Date/Time: 06/01/23 00:09 Discharge Disposition Discharge Disposition: Home: No Services Discharge Diagnosis Back pain (M54.9) History of ADHD (Z86.59) Depression (F32.A) NATHAN (generalized anxiety disorder) (F41.1) Borderline personality disorder (F60.3) _ Discharge Medications Acetaminophen (Tylenol 325 mg oral tablet)?650?Milligram?By Mouth?Every 6 hours?as needed?Pain , Moderate Desmopressin (desmopressin 0.1 mg oral tablet)?0.2?Milligram?By Mouth?Daily at bedtime Duloxetine (duloxetine 60 mg oral enteric coated capsule)?60?Milligram?By Mouth?Daily Haloperidol (haloperidol 5 mg oral tablet)?5?Milligram?By Mouth?Daily Haloperidol (haloperidol 5 mg oral tablet)?5?Milligram?By Mouth?2 times a day?as needed?Anxiety HydrOXYzine (hydrOXYzine pamoate 50 mg oral capsule)?50?Milligram?By Mouth?Every 6 hours?as needed?Anxiety Ibuprofen (ibuprofen 400 mg oral tablet)?400?Milligram?By Mouth?3 times a day?as needed?Pain , Mild Methylphenidate (methylphenidate 27 mg oral tablet, extended release)?27?Milligram?By Mouth?Daily Milk of Magnesia (Milk of Magnesia Liquid)?30?Milliliter?By Mouth?2 times a day?as needed?Constipation Prazosin (prazosin 1 mg oral capsule)?1?Milligram?By Mouth?Daily at bedtime Topiramate (topiramate 50 mg oral tablet)?150?Milligram?By Mouth?Daily at bedtime Trazodone (traZODone 50 mg oral tablet)?50?Milligram?By Mouth?Daily at bedtime?as needed?Sleep ? Medications Started none Medications Discontinued none Doses Changed none Allergies Allergies ?(Active and Proposed Allergies Only) Thorazine? (Severity: Unknown severity, Onset: Unknown) ?Reactions: Skin rash Geodon? (Severity: Unknown severity, Onset: Unknown) ?Reactions: full body tremors Trileptal? (Severity: Unknown severity, Onset: Unknown) ? PCP Follow-Up/Heads-Up outpatient psych followup Hospital Course 22-year-old with past medical history significant for borderline personality disorder, depression and obesity coming in with recurrent intentional overdose with 50 tablets of Benadryl 25 mg each, initially hypertensive, tachycardic and tachypneic however patient did improve. Poison control notified. [facility] evaluated patient and undergoing an inpatient bed search, [facility] cleared her for discharge to respite on 06/02 and now ok for discharge home. ?? Borderline personality disorder (F60.3): Overdose (T50.901A): ??Lactic acidosis resolved, improved appetite and no concerns for ongoing intoxication. ??Patient medically cleared??and [facility] also cleared her for discharge ?? Suicide precautions ??Constant manager scheduling ??Social work consult ??Patient's chronic medications including duloxetine 60 mg, methylphenidate 27 mg and prazosin at bedtime. Topiramate 150 mg at bedtime. ?? Back pain ??Musculoskeletal ??Heating pad, as needed ibuprofen ordered. Patient already received Tylenol for pain? GERD ??Omeprazole ordered ?? Objective Vital Signs?? Temperature: 97.5 DegF (06/04/23 08:11:00) Temperature Route: Oral (06/04/23 08:11:00) Pulse Rate: 73 bpm (06/04/23 08:11:00) Respiratory Rate: 16 br/min (06/04/23 09:22:00) Systolic Blood Pressure: 118 mm Hg (06/04/23 08:11:00) Diastolic Blood Pressure: 69 mm Hg (06/04/23 08:11:00) Blood pressure sites: Arm, right (06/04/23 08:11:00) Mean Arterial Pressure: 76 mm Hg (06/04/23 07:21:00) Pulse Pressure: 49 mm Hg (06/04/23 08:11:00) Oxygen Saturation: 97 % (06/04/23 08:11:00) Mode of Delivery (Oxygen): Room air (06/04/23 08:11:00) Early Warning Score: 2 (06/04/23 09:25:08) ? . Physical Exam Constitutional: Alert, in no distress. Mental Status: Oriented to person, place and time. HEENT: unremarkable Neck: Supple, Full range of motion. Respiratory: Clear to auscultation. No wheezing, rales or rhonchi. Cardiovascular: S1 S2 regular. No murmurs, rubs or gallops. Gastrointestinal: Abdomen soft, non-tender, non-distended. Normal bowel sounds. Neurologic: Cranial nerves II-XII grossly intact. No focal neurological deficits.?? Moves all extremities spontaneously. Sensation intact bilaterally. Skin: No rashes or lesions. No petechiae or purpura.?? Musculoskeletal:?? Normal range of motion.. Psychiatric: Normal mood and affect Consultants [facility] Follow-Up Appointments Added Follow Up ?Time Frame ?Comments Yovanny RILEY, Nikki?Within two weeks Post Discharge Care Diet: ??Regular Diet ?? Activity: ??increase as tolerated ?? Discharge ?06/04/23 12:46:00 EDT Discharge Prescriptions ?ePrescribed, 06/04/23 12:46:00 EDT 25??minutes spent on discharge * Jackie Woods RN: PERFORM Event Display: Patient Education/Instruction Authored Date: [id number] Inpatient [place] [address] Name: IDRIS WALTER : 2000?? Visit: 06/01/2023 00:09?? Current Date: 06/04/2023 12:53 ?? Account: [id number]?? Inpatient Adult Discharge Instructions We would like [...] and their families. Surveys are administered by [employer] ?? If further treatment with your primary care physician or another doctor is recommended, it is important for you to keep the appointment. Call your primary care physician or return to the Emergency Department immediately if your condition worsens, fails to improve, or new symptoms develop. If you need to find a doctor, you can call [facility] [email or web address] [facility] for a referral at [phone] or toll free at [phone]) or log in to [email or web address] ?? [facility], in keeping with [facility] guidance, no longer requires face masks [...] a health care sharonda of your choosing. iodine is a website that allows you to securely view your medical information including your hospital discharge summary, office visit summaries, medications and follow-up visits. You can also request appointments, renew medications, and request access to your medical information using a health care sharonda of your choosing, or just ask a question. You can enroll at [email or web address] or register during your next office visit. You have been discharged from [facility], Patient Care Unit: SPK4??. If you have any questions regarding these instructions, including results of studies pending, afteryou leave, please call us and we will be happy to assist you 04/09. [facility] Your Care Team Attending Physician Wesley Leon MD?? Consulting Providers Wesley Leon MD?? Discharging Providers Wesley Leon MD Reason for Your Visit Suicidal ideation, OD on Benadryl?? Your Diagnosis Back pain History of ADHD Depression NATHAN (generalized anxiety disorder) Tests Performed Below is a partial list of the tests performed during your hospitalization. You may have had other tests and procedures not included in this list. Please discuss all test results with your provider. 25OH VITAMIN D Acetaminophen Level Amphetamine Urine Screen Aspirin Level Barbiturate Urine Screen Benzodiazepine Urine Screen BUN Calcium Level Cannabinoid Urine Screen CBC w/ Differential Cocaine Urine Screen Comprehensive Metabolic Panel Cortisol Level Creatinine Electrolytes Ethanol Level Folic Acid Level Glucose Level GLUCOSE POC HOLD BLUE TUBE HOLD GEL TUBE HOLD GREEN TUBE HOLD LAVENDER TUBE HOLD OTHER TUBE Lactate Level Magnesium Level Opiate Screen Urine Phosphorus Level Serum Quantitative TSH with T4 Reflex (Adults Only) Urinalysis w/hold for Urine Culture VITAMIN B12 No tests performed during this visit.?? Primary Care Provider Nikki Hairston NP? Advance Directive Health Care Proxy on File No Patient refuses to discuss Discharge Vitals Temperature: 97.5 DegF Height: 167 cm Pulse Rate: 73 bpm Weight: 149.4 kg Respiratory Rate: 16 br/min Body Mass Index:??53.57 kg/m2??Critical Systolic Blood Pressure: 118 mm Hg Body surface area: 2.63 Diastolic Blood Pressure: 69 mm Hg ?? Oxygen Saturation: 97 % ?? Studies Pending All studies ordered during this hospital stay have been completed unless listed below. Please discuss all pending results with your provider listed above in these instructions. ?? No incomplete studies found?? What to do next Instructions From Your Doctor ?? Orders??:Regular Diet :increase as tolerated? 06/04/23 12:46:00 EDT?? Prescriptions??, ??06/04/23 12:46:00 EDT?? You Need to Schedule the Following Appointments Follow Up with??Nikki Hairston NP When:??Within Within two weeks Where: [address] [place] [id number]- Discharge Medications IDRIS WALTER :2000 Visit Date:06/01/2023 Medications: Please continue your medications until treatment is completed or stopped by your provider. Medications not listed below should be discontinued. Discuss any questions related to medications with your provider. What How Much When Instructions Next Dose Unchanged Acetaminophen (Tylenol 325 mg oral tablet) 650 Milligram Oral Every 6 hours as needed for Pain , Moderate as needed Unchanged Desmopressin (desmopressin 0.1 mg oral tablet) 0.2 Milligram Oral Daily at Bedtime 06/04/23 PM Unchanged Duloxetine (duloxetine 60 mg oral enteric coated capsule) 60 Milligram Oral Daily 06/05/23 AM Unchanged Haloperidol (haloperidol 5 mg oral tablet) 5 Milligram Oral Daily 06/05/23 AM Unchanged Haloperidol (haloperidol 5 mg oral tablet) 5 Milligram Oral Twice a day as needed for Anxiety 06/04/23 PM Unchanged HydrOXYzine (hydrOXYzine pamoate 50 mg oral capsule) 50 Milligram Oral Every 6 hours as needed for Anxiety as needed Unchanged Ibuprofen (ibuprofen 400 mg oral tablet) 400 Milligram Oral 3 times a day as needed for Pain , Mild as needed Unchanged Methylphenidate (methylphenidate 27 mg oral tablet, extended release) 27 Milligram Oral Daily 06/05/23 AM Unchanged Milk of Magnesia (Milk of Magnesia Liquid) 30 Milliliter Oral Twice a day as needed for Constipation as needed Unchanged Prazosin (prazosin 1 mg oral capsule) 1 Milligram Oral Daily at Bedtime 06/04/23 PM Unchanged Topiramate (topiramate 50 mg oral tablet) 150 Milligram Oral Daily at Bedtime 06/04/23 PM Unchanged Trazodone (traZODone 50 mg oral tablet) 50 Milligram Oral Daily at Bedtime as needed for Sleep 06/04/23 PM Prescription Given During Visit No new medications prescribed at time of discharge.?? Laboratory Results Below is a partial list of the most recent Laboratory test results done prior to this discharge. You may have had other tests and procedures not included in this list. Please discuss all test resultswith your provider. Est Creatinine Clearance - 89.35 mL/min (06/01/2023) 25OH VITAMIN D (06/01/2023) ???25 OH-Vitamin D Level - 21.5 ng/mL Acetaminophen Level (05/31/2023) ? ?Acetaminophen Level - <5 mg/L Amphetamine Urine Screen (05/31/2023) ???Amphetamine Screen, Urine - NONE DETECTED Aspirin Level (05/31/2023) ? ?Salicylate Level - <0.3 mg/dL Barbiturate Urine Screen (05/31/2023) ???Barbiturate Screen, Urine - NONE DETECTED Benzodiazepine Urine Screen (05/31/2023) ???Benzodiazepine Screen, Urine - NONE DETECTED BUN (06/01/2023) ???BUN - 9 mg/dL Calcium Level (06/01/2023) ???Calcium - 9.2 mg/dL Cannabinoid Urine Screen (05/31/2023) ???Cannabinoid Screen, Urine - NONE DETECTED CBC w/ Differential (06/01/2023) ???WBC - 8.1 k/mm3???RBC - 4.73 m/mm3???Hgb - 13.6 Gm/dL???Hct - 41.6 %???MCV - 87.9 femtoliters???MCH - 28.8 pg???MCHC - 32.7 g/dL???Platelet Count - 210 k/mm3???RDW-SD - 42.8 femtoliters???MPV - 12.7 femtoliters???Nucleated RBC (Automated) - 0.0 #/100 WBC'S???Abs. NRBC - 0.0 k/mm3???Abs. Neut - 4.1 k/mm3???Abs. Lymph - 3.0 k/mm3???Abs. [place] - 0.9 k/mm3???Abs. Eo - 0.1 k/mm3???Abs. Baso - 0.1 k/mm3???Neut % - 50.1 %???Lymph % - 37.5 %???[place] % - 10.6 %???Eos % - 1.0 %???Baso % - 0.6 %???Imm Gran - 0.2 %???Abs. Imm Gran - 0.0 k/mm3 Cocaine Urine Screen (05/31/2023) ???Cocaine Metabolite Screen, Urine - NONE DETECTED Comprehensive Metabolic Panel (05/31/2023) ???Sodium - 141 mmol/L???Potassium - 3.4 mmol/L???Chloride - 108 mmol/L???Bicarbonate Level - 20 mmol/L???Anion Gap - 13???Glucose Level - 88 mg/dL???BUN - 10 mg/dL???Creatinine-Blood - 0.8 mg/dL???Estimated GFR Creatinine - 103 ML/MIN/1.73 M2???Calcium - 10.0 mg/dL???Protein, Total - 8.0 Gm/dL???Al bumin - 4.5 Gm/dL???AG Ratio - 1.3???Alkaline Phosphatase - 89 units/L???AST (SGOT) - 26 units/L???ALT (SGPT) - 40 units/L???Bilirubin, Total - 0.3 mg/dL Cortisol Level (06/02/2023) ???Cortisol Level - 15.7 ??g/dL Creatinine (06/01/2023) ???Creatinine-Blood - 0.9 mg/dL???Estimated GFR Creatinine - 89 ML/MIN/1.73 M2 Electrolytes (06/01/2023) ???Sodium - 141 mmol/L???Potassium - 3.9 mmol/L???Chloride - 110 mmol/L???Bicarbonate Level - 24 mmol/L???Anion Gap - 7 Ethanol Level (05/31/2023) ???Ethanol, Serum or Plasma - NONE DETECTED Folic Acid Level (06/01/2023) ???Folic Acid Level - 11.2 ng/mL Glucose Level (06/01/2023) ???Glucose Level - 100 mg/dL GLUCOSE POC (06/01/2023) ???Glucose, POC - 97 mg/dL HOLD BLUE TUBE (05/31/2023) ???Hold Blue Top - SPECIMEN DISCARDED AFTER 4 HOURS. HOLD GEL TUBE (05/31/2023) ???Hold Gel Top - SPECIMEN DISCARDED AFTER 1 WEEK HOLD GREEN TUBE (06/02/2023) ???Hold Green Top - SPECIMEN DISCARDED AFTER 1 WEEK HOLD LAVENDER TUBE (06/02/2023) ???Hold Lavender Top - SPECIMEN DISCARDED AFTER 24 HOURS. HOLD OTHER TUBE (05/31/2023) ???Hold Other - SPECIMEN DISCARDED AFTER 1 WEEK Lactate Level (06/01/2023) ???Lactate - 1.5 mmol/L Magnesium Level (06/01/2023) ???Magnesium - 2.1 mg/dL Opiate Screen Urine (05/31/2023) ???Opiate Screen, Urine - NONE DETECTED Phosphorus Level (06/01/2023) ???Phosphorus - 3.2 mg/dL Serum Quantitative (05/31/2023) ? ?Blood - <1 mIU/mL TSH with T4 Reflex (Adults Only) (05/31/2023) ???TSH - 1.82 uIU/mL Urinalysis w/hold for Urine Culture (05/31/2023) ? ?Appear/Color, Urine - COLORLESS? ?Clarity - CLEAR? ?Specific [place], Urine - <1.005? ?pH, Urine - 6.0???Albumin, Urine - NEGATIVE???Glucose, Urine - NEGATIVE???Ketones, Urine - NEGATIVE???Bilirubin, Urine - NEGATIVE???Hemoglobin, Urine - NEGATIVE???Nitrite, Urine - NEGATIVE???Leukocyte, Urine - NEGATIVE???Urobilinogen - NORMAL???Hold Urine Culture - Testing available 48 hours from time of collection. VITAMIN B12 (06/01/2023) ???Vitamin B12 Level - 637 pg/mL Allergies (NKA means No Known Allergies) Geodon??(full body tremors) Thorazine??(Skin rash) Trileptal Problems Active Problems??(13) Acute COVID-19?? Alcohol use?? Borderline personality disorder?? COVID-19?? Depression?? NATHAN (generalized anxiety disorder)?? History of ADHD?? History of COVID-19?? History of suicide attempt?? Major depressive disorder, recurrent?? Severe obesity?? Tobacco dependence?? Transgender?? Education Materials Below is the list of Educational Leaflet Providered with your Discharge Instructions. Valuables and Belongings I fully understand and agree that [facility] accepts no responsibility for all my personal [...] to send valuables and belongings home. ?? Date for Pt to Sign Valuables/Belongings: 06/01/23 02:26:00 ?? Other Discharge Information ? Pulmonary Rehab Status?? Pulmonary Rehab Discharge Status?? Respiratory Rate: 16 br/min ? Common Emergency Awareness Tips IS [...] are strongly encouraged to quit. Please call [facility] [email or web address].com Link at [phone] or [phone] ([phone]) or log in to [email or web address] for referrals to smoking cessation programs. ?? 451 Suicide & Crisis Lifeline is available 04/09 if you or someone you know needs to find a reason to keep living. By calling 026 you'll be connected to a skilled, trained counselor at a crisis center in your area. INPATIENT DISCHARGE INSTRUCTIONS SIGNATURE IDRIS POLANCO Location:[facility] Registration Date and Time:06/01/2023 00:09 EDT Primary Care Physician: Nikki Hairston NP, Attending Physician: Wesley Leon MD, I IDRIS WALTER, have received the above patient education materials/instructions and have verbalizedunderstanding. If ambulance or transport services are being used I further acknowledge being given a choice of service. ?? If you need to contact me, please call me at this number: . Patient/Athletic Shoe Designer Name: Patient/Athletic Shoe Designer Signature: Relationship to Patient: Witness Name/Signature: Date: * Chanda Nino: PERFORM, SIGN, VERIFY Event Display: Patient Education Handout Authored Date: [id number] Patient Care team information Care Team Personnel Name: Garcia Baez RN Position: [facility] RN Member Role: Primary Care Nurse Name: Diamond Mancini RN Position: [facility] SN RN Member Role: Primary Care Nurse Name: Leah Almonte RN Position: [facility] RN Member Role: Primary Care Nurse Name: Natasha Dickey RN Position: [facility] RN Member Role: Primary Care Nurse Name: Kellee Garvin RN Position: [facility] RN Member Role: Primary Care Nurse Name: Maegan Diaz RN Position: [facility] RN Member Role: Primary Care Nurse Name: Genesis Lea RN Position: [facility] RN Member Role: Primary Care Nurse Name: Nikki Hairston NP Position: [facility] PCO Associate Professional Member Role: PCP Address: Address: [address] [place] [address]- Name: Alejandra Gilbert RN Position: [facility] RN Member Role: Primary Care Nurse Name: Zara Colon RN Position: [facility] RN Supv Member Role: Primary Care Nurse Name: Stefani Pinto RN Position: S RN Member Role: Primary Care Nurse Name: Araceli Quevedo RN Position: S RN Member Role: Primary Care Nurse Name: Fatoumata Loyd RN Position: [facility] RN Member Role: Primary Care Nurse Name: Melissa Stapleton RN Position: S RN Member Role: Primary Care Nurse Name: Ligia Stapleton RN Position: [facility] RN Member Role: Primary Care Nurse Name: Melissa Davison RN Position: [facility] RN Member Role: Primary Care Nurse Name: Trinidad Ordonez RN Position: [facility] RN Member Role: Primary Care Nurse Name: Mariaelena Collazo RN Position: [facility] RN Member Role: Primary Care Nurse Name: Beatrice Pisano RN Position: [facility] RN Member Role: Primary Care Nurse Name: Shankar Man Position: [facility] RN Member Role: Primary Care Nurse Name: Nikki Croft RN Position: [facility] RN Member Role: Primary Care Nurse Name: Jennifer Almanzar RN Position: [facility] RN Member Role: Primary Care Nurse Name: John Cuellar RN Position: [facility] RN Member Role: Primary Care Nurse Name: Petrona Gayle RN Position: [facility] [facility] RN Member Role: Primary Care Nurse Name: Christos Godoy RN Position: [facility] RN Member Role: Primary Care Nurse Care Team Related Persons Name: [employer] Address: home [address] [place] [address] Name: MORGANYULIYA Address: home [address] [place] [address] Name: SUNDAY WALTER Address: home [address] [place] [address]
--- OUTSIDE RECORDS SUMMARY | 2023-06-07 19:09 | XMS_ITS | Continuity of Care Document ---
Author Organization [facility] Address [address] [place] [address]- Care Team Providers Care Charge Master Specialist Name Role Phone Yovanny RILEY, Nikki Primary Care Physician [place] [facility] [place] 05/17/23 - 05/17/[address] [address]- Encounter Diagnosis Weakness(Final) - 05/17/23 Borderline personality disorder(Final) - 05/17/23 Discharge Disposition: A-D/C Home Attending Physician: Stewart Hirsch MD Admitting Physician: Stewart Hirsch MD Referring Physician: Not on Staff, Referring [...] 0 Refills, Maintenance, 04/03/23 8:17:00 EST, Tablet, [facility]-[id number], Partial fill upon patient request if the prescription is for a schedule II opioid drug., 167, cm, 04/02/23 20:... Start Date: 04/03/23 Status: Ordered duloxetine 60 mg oral enteric coated capsule = 60 mg, By Mouth, Daily, # 30 capsule, 0 Refills, Maintenance, 04/03/23 8:17:00 EST, Capsule, [facility]-[id number], Partial fill upon patient request if the prescription is for a schedule II opioid drug., 167, cm, 04/02/23 20:16:00 EST,... Start Date: 04/03/23 Status: Ordered haloperidol 5 mg oral tablet 5 mg, By Mouth, Daily, # 30 tablet, Refills 0, Tot. Refills 0, Maintenance, 04/03/23 8:19:00 EST, [facility] [id number], Partial fill upon patient request if the prescription is for a schedule II opioid d... Start Date: 04/03/23 Status: Ordered haloperidol 5 mg oral tablet 5 mg, By Mouth, 2 times a day, PRN, # 60 tablet, Refills 0, Tot. Refills 0, Maintenance, Anxiety, 04/03/23 8:20:00 EST, [facility] [id number], Partial fill upon patient request if the [...] Refills, Maintenance, 04/03/23 8:17:00 EST, ER Tablet, [facility]-[id number], Partial fill upon patient request if the [...] 04/03/23 8:18:00 EST, Route to Pharmacy Electronically, [facility] [place]-[id number], Partial fill upon patient request if the prescription is for a schedule... Start Date: 04/03/23 Status: Ordered topiramate 50 mg oral tablet = 150 mg, By Mouth, Daily at bedtime, # 90 tablet, 0 Refills, Maintenance, 04/03/23 8:18:00 EST, Tablet, [facility]-[id number], Partial fill upon patient request if the prescription is for a schedule II opioid drug., 167, cm, 04/02/23 20:... Start Date: 04/03/23 Status: Ordered traZODone 50 mg oral tablet 50 mg, By Mouth, Daily at bedtime, PRN, # 30 tablet, Refills 0, Tot. Refills 0, Maintenance, Sleep,04/03/23 8:19:00 EST, Route to Pharmacy Electronically, [facility] [place]-[id number], Partialfill upon patient request if the prescription [...] Exam Date Time Procedure Performing Provider Status 05/17/23 7:11 PM Lumbar Spine 2 or 3 Views Can Aurelia abby Aleman; Auth (Verified) Notes: (Lumbar Spine 2 or 3 Views) Reason For Exam: with Pain;Trauma RESULT: Lumbar Spine 2 or 3 Views Lumbar Spine 2 or 3 Views Hx of Present Illness: Tried to get out of bed 2 hrs ago and had weakness in bilateral legs. Fell but denies any injuries from fall (caught herself on side of the bed). Called her doctor who told herto come to ED for labs; Reason: Trauma; with Pain; Clinical Question(s): Fracture Dislocation COMPARISON: None. FINDINGS: No bone lesions or fractures. Normal disc configuration. Normal alignment. No spondylolysis or spondylolisthesis. Normal soft tissues. IMPRESSION: Normal. WSN: [id number] Ordering Physician: Stewart Hirsch Dictated By: Asim Mustafa MD Dictated Date/Time: 05/17/23 7:35 pm Reviewed By: Asim Mustafa MD Signed By: Asim Mustafa MD Signed Date/Time: 05/17/23 7:35 pm Transcribed By: DEJON Transcribed Date/Time: 05/17/23 7:28 pm Vital Signs Most recent to oldest [Reference Range]: 1 2 Height 168 cm (05/17/23 8:25 PM) 168 cm (05/17/23 6:31 PM) Weight 143.5 kg (05/17/23 8:25 PM) 143.5 kg (05/17/23 6:31 PM) Oxygen Saturation [94-100 %] 99 % (05/17/23 8:25 PM) 95 % (05/17/23 6:29 PM) Pulse Rate [55-90 bpm] 99 bpm *H* (05/17/23 8:25 PM) 120 bpm *H* (05/17/23 6:29 PM) Blood Pressure [90-138/55-84 mm Hg] 131/ 87mm Hg (05/17/23 8:25 PM) 146/95mm Hg *H* (05/17/23 6:29 PM) Respiratory Rate [16-30 br/min] 18 br/mi n (05/17/23 8:25 PM) 18 br/min (05/17/23 6:29 PM) Temperature [96.8-100.4 DegF] 97.7 DegF (05/17/23 8:25 PM) 99.5 DegF (05/17/23 6:29 PM) Mode of Delivery (Oxygen) Room air (05/17/23 8:25 PM) Room air (05/17/23 6:29 PM) Blood pressure sites Arm, left (05/17/23 8:25 PM) Arm, left (05/17/23 6:29 PM) Temperature Route Temporal (05/17/23 8:25 PM) Temporal (05/17/23 6:29 PM) Dry Weight 143.5 kg (05/17/23 8:25 PM) 143.5 kg (05/17/23 6:31 PM) Social History Social History Type Response Smoking Status 10 or more cigarette s (1/2 pack or more)/day in last 30 days entered on: 09/07/18 Sex Patient Care team information Care Team Personnel Name: Garcia Baez RN Position: [facility] RN Member Role: Primary Care Nurse Name: Diamond Mancini RN Position: [facility] RN Member Role: Primary Care Nurse Name: Leah Almonte RN Position: [facility] RN Member Role: Primary Care Nurse Name: Natasha Dickey RN Position: [facility] RN Member Role: Primary Care Nurse Name: Kellee Garvin RN Position: [facility] RN Member Role: Primary Care Nurse Name: Maegan Diaz RN Position: [facility] RN Member Role: Primary Care Nurse Name: Genesis Lea RN Position: [facility] RN Member Role: Primary Care Nurse Name: Nikki Hairston NP Position: [facility] PCO Associate Professional Member Role: PCP Address: Address: [address] [place] [address] Name: Alejandra Gilbert RN Position: S RN Member Role: Primary Care Nurse Name: Zara Colon RN Position: [facility] RN Supv Member Role: Primary Care Nurse Name: Stefani Pinto RN Position: S RN Member Role: Primary Care Nurse Name: Araceli Quevedo RN Position: [facility] RN Member Role: Primary Care Nurse Name: Fatoumata Loyd RN Position: [facility] RN Member Role: Primary Care Nurse Name: Melissa Stapleton RN Position: [facility] RN Member Role: Primary Care Nurse Name: Ligia Stapleton RN Position: [facility] RN Member Role: Primary Care Nurse Name: Melissa Davison RN Position: [facility] RN Member Role: Primary Care Nurse Name: Trinidad Ordonez RN Position: [facility] RN Member Role: Primary Care Nurse Name: Mariaelena Collazo RN Position: [facility] RN Member Role: Primary Care Nurse Name: Beatrice Pisano RN Position: [facility] RN Member Role: Primary Care Nurse Name: Shankar Man Position: [facility] RN Member Role: Primary Care Nurse Name: Nikki Croft RN Position: [facility] RN Member Role: Primary Care Nurse Name: John Cuellar RN Position: [facility] RN Member Role: Primary Care Nurse Name: Christos Godoy RN Position: [facility] RN Member Role: Primary Care Nurse Care Team Related Persons Name: [employer] Address: home [address] [place] [id number] Name: YULIYA MORA Address: home [address] [place] [address] Name: SUNDAY MORA Address: [place] [address]
--- OUTSIDE RECORDS SUMMARY | 2023-06-07 19:09 | XMS_ITS | Continuity of Care Document ---
Author Organization [facility] Address [address] [place] [address]- Care Team Providers Care Plastic Surgery Manager Name Role Phone Katie RILEY, Narda Fonseca Primary Care Physici an [place] [facility] [place] - 11/06/[address] [address]- Encounter Diagnosis Suicidal ideation(Final) - 11/05/20 Discharge Disposition: A-D/C Home Attending Physician: Glenda Moody MD Admitting Physician: Glenda Moody MD Referring Physician: Not on Staff, Referring MD Allergies, Adverse Reactions, Alerts Substance Reaction Severity Status Trileptal Active Geodon full body tremors Active Immunizations Given and Recorded Vaccine Date Status Refusal Reason tetanus/diphtheria/pertussis, acel(Tdap) 12/22/19 Given Medications Benadryl 25 mg oral tablet 50 mg, 2, tablet, By Mouth, 3 times a day, PRN as needed for itching, # 30 tablet, 0 Refills, Maintenance Start Date: 07/31/20 Status: Ordered ibuprofen 600 mg oral tablet 600 mg, 1, tablet, By Mouth, 4 times a day, PRN, # 30 tablet, Refills 0, Tot. Refills 0, Maintenance, for pain, 07/22/20 17:32:00 EDT, Route to Pharmacy Electronically, [facility]-, Partial fill upon patient request if the pres... Start Date: 07/22/20 Status: Ordered lithium 300 mg oral tablet, extended release 2 tablet = 600 mg, By Mouth, 2 times a day, # 360 tablet, 0 Refills, Maintenance, 11/01/20 22:11:00EDT, ER Tablet, Partial fill upon patient request if the prescription is for a schedule II opioid drug. Start Date: 11/01/20 Status: Ordered prazosin 1 mg oral capsule 7 mg, Capsule, By Mouth, 11/05/20 21:00:00 EDT Start Date: 11/05/20 Stop Date: 11/05/20 Status: Completed prazosin 2 mg oral capsule 1 capsule = 2 mg, By Mouth, Daily at bedtime, takes with 5 mg prazosin, # 30 capsule, 0 Refills, Maintenance, 04/22/20 14:44:00 EST, Capsule, [facility]-, Partial fill upon patient request if the prescription is for a schedule... Start Date: 04/22/20 Stop Date: 05/22/20 Status: Ordered prazosin 5 mg oral capsule 5 mg, 1, capsule, By Mouth, Daily at bedtime, # 30 capsule, Refills 0, Tot. Refills 0, Maintenance,04/22/20 14:44:00 EST, Route to Pharmacy Electronically, [facility]-, Partial fill upon patient request if the prescription is... Start Date: 04/22/20 Stop Date: 05/22/20 Status: Ordered PROzac 40 mg oral capsule 1 capsule = 40 mg, By Mouth, Daily, # 30 capsule, 0 Refills, Maintenance, 11/01/20 22:14:00 EDT, Capsule, Partial fill upon patient request if the prescription is for a schedule II opioid drug. Start Date: 11/01/20 Status: Ordered traZODone 150 mg oral tablet [...] Range]: 1 2 3 Height 168 cm (11/06/20 8:12 AM) 168 cm (11/05/20 8:19 PM) 168 cm (11/04/20 8:10 PM) Weight 140.1 kg (11/06/20 8:12 AM) 140.1 kg (11/05/20 8:19 PM) 140.1 kg (11/04/20 8:10 PM) Oxygen Saturation [94-100 %] 96 % (11/06/20 8:12 AM) 98 % (11/05/20 8:19 PM) 96 % (11/05/20 9:00 AM) Pulse Rate [55-90 bpm] 87 bpm (11/06/20 8:12 AM) 104 bpm *H* (11/05/20 8:19 PM) 85 bpm (11/05/20 9:00 AM) Body Mass Index [18.5-24.99] 49.64 *>HHI* (11/06/20 8:12 AM) 49.64 *>HHI* (11/05/20 8:19 PM) 49.64 *>HHI* (11/04/20 8:10 PM) Blood Pressure [90-138/55-84 mm Hg] 117/73mm Hg (11/06/20 8:12 AM) 120/74mm Hg (11/05/20 9:08 PM) 120/74mm Hg (11/05/20 8:19 PM) Respiratory Rate [16-30 br/min] 20 br/min (11/06/20 8:12 AM) 16 br/min (11/05/20 8:19 PM) 16 br/min (11/05/20 9:00 AM) Temperature [96.8-100.4 DegF] 97.4 DegF (11/06/20 8:12 AM) 98 DegF (11/05/20 8:19 PM) 97.3 DegF (11/05/20 9:00 AM) Mode of Delivery (Oxygen) Room air (11/06/20 8:12 AM) Room air (11/05/20 9:00 AM) Room air (11/05/20 5:10 AM) Blood pressure sites Arm, right (11/06/20 8:12 AM) Arm, left (11/05/20 9:00 AM) Arm, left (11/05/20 5:10 AM) Temperature Route Oral (11/06/20 8:12 AM) Oral (11/05/20 9:00 AM) Oral (11/05/20 5:10 AM) Dry Weight 140.1 kg (11/06/20 8:12 AM) 140.1 kg (11/05/20 8:19 PM) 140.1 kg (11/04/20 8:10 PM) Social History Social History Type Response Smoking Status 10 or more cigarette s (1/2 pack or more)/day in last 30 days entered on: 09/07/18 Sex
--- OUTSIDE RECORDS SUMMARY | 2023-06-07 19:09 | XMS_ITS | Continuity of Care Document ---
Author Organization [facility] Address [address] [place] [address]- Care Team Providers Care Petrologist Name Role Phone Katie RILEY, Narda Marian Primary Care Physici an Encounter [facility] Date(s): 09/09/22 - 09/12/[address] [address]- Discharge Disposition: A-D/C Home Attending Physician: Fabiana Morley MD Admitting Physician: Skylar Lyon MD Referring Physician: Not on Staff, Referring [...] mRNA [id number] vac 03/02/20 Recorded Medications desmopressin 0.2 mg oral tablet 2 tablet = 0.4 mg, By Mouth, Daily at bedtime, # 180 tablet, 0 Refills, Maintenance, 09/09/22 21:30:00 EDT, Tablet, Partial fill upon patient request if the prescription is for a schedule II opioid drug. Start Date: 09/09/22 Status: Ordered diphenhydrAMINE 50 mg oral capsule 1 capsule = 50 mg, By Mouth, 2 times a day, PRN Anxiety, 0 Refills, Maintenance, 08/17/22 16:45:00 EDT, Partial fill upon patient request if the prescription is for a schedule II opioid drug. Start Date: 08/17/22 Status: Ordered gabapentin 300 mg oral capsule 600 mg, Capsule, By Mouth, 09/12/22 9:00:00 EDT Start Date: 09/12/22 Stop Date: 09/12/22 Status: Completed gabapentin 300 mg oral capsule 600 mg, 2, capsule, By Mouth, 3 times a day, # 180 capsule, Refills 0, Tot. Refills 0, Maintenance,01/24/22 9:26:00 EST, Route to Pharmacy Electronically, [facility], [place], [facility] Partial fill upon patient request if the prescription is f... Start Date: 01/24/22 Status: Ordered haloperidol 5 mg oral tablet 5 mg, 1, tablet, By Mouth, 3 times a day, PRN, Refills 0, Maintenance, Anxiety, 08/28/22 12:08:00 EDT, Partial fill upon patient request if the prescription is for a schedule II opioid drug. Start Date: 08/28/22 Status: Ordered lithium 300 mg oral tablet 2 tablet = 600 mg, By Mouth, [...] Refills, Maintenance, 01/24/22 9:27:00 EST, ER Tablet, [facility], [place], [facility] Partial fill upon patient request if the prescription is for a schedule II opioid drug., 168, cm, 01/24/22 7:... Start Date: 01/24/22 Status: Ordered prazosin 2 mg oral capsule 1 capsule = 2 mg, By Mouth, Daily at bedtime, # 30 capsule, 0 Refills, Maintenance, 01/24/22 9:27:00 EST, Capsule, [facility], [place], [facility] Partial fill upon patient request if the prescription is for a schedule II opioid drug., 168, cm, 1... Start Date: 01/24/22 Status: Ordered PROzac 20 mg oral capsule 40 mg, 2, capsule, By Mouth, Daily, # 60 capsule, Refills 0, Tot. Refills 0, Maintenance, 01/24/22 9:26:00 EST, Route to Pharmacy Electronically, [facility], Partial fill upon patient request if the prescription is for a sched... Start Date: 01/24/22 Status: Ordered topiramate 25 mg oral tablet = 25 mg, By Mouth, Daily, 0 Refills, Maintenance, 08/28/22 12:09:00 EDT, Tablet, Partial fill upon patient request if the prescription is for a schedule II opioid drug. Start Date: 08/28/22 Status: Ordered Problem List Condition Confirmation Course Effective Dates Status Health St atus Informant COVID-19 virus infection Confirmed Active COVID-19 1 Confirmed 11/15/21 Active Depression Confirmed Active Major depressive disorder, recurrent Confirmed Active Severe obesity Confirmed Active Tobacco dependence Confirmed Active 1Problem added by Discern Expert Vital Signs Most recent to oldest [Reference Range]: 1 2 3 Height 168 cm (09/12/22 11:13 AM) 168 cm (09/12/22 7:00 AM) 168 cm (09/12/22 3:22 AM) Weight 138.4 kg (09/09/22 9:35 PM) 140.8 kg (09/09/22 9:05 PM) 138.4 kg (09/09/22 5:44 PM) Oxygen Saturation [94-100 %] 99 % (09/12/22 11:13 AM) 98 % (09/12/22 7:00 AM) 99 % (09/12/22 3:22 AM) Pulse Rate [55-90 bpm] 67 bpm (09/12/22 11:13 AM) 68 bpm (09/12/22 7:00 AM) 70 bpm (09/12/22 3:22 AM) Body Mass Index [18.5-24.99 kg/m2] 49.04 kg/m2 *>HHI* (09/09/22 9:35 PM) 49.89 kg/m2 *>HHI* (09/09/22 9:05 PM) 49.04 kg/m2 *>HHI* (09/09/22 5:41 PM) Blood Pressure [90-138/55-84 mm Hg] 125/82mm Hg (09/12/22 11:13 AM) 131/68mm Hg (09/12/22 7:00 AM) 113/75mm Hg (09/12/22 3:22 AM) Respiratory Rate [16-30 br/min] 17 br/min (09/12/22 11:13 AM) 18 br/min (09/12/22 8:58 AM) 17 br/min (09/12/22 7:00 AM) Temperature [96.8-100.4 DegF] 98.1 DegF (09/12/22 11:13 AM) 97.8 DegF (09/12/22 7:00 AM) 98.0 DegF (09/12/22 3:22 AM) Liters per Minute 0 L/min (09/10/22 7:27 PM) 0 L/min (09/10/22 3:24 PM) Mode of Delivery (Oxygen) Room air (09/12/22 11:13 AM) Room air (09/12/22 7:00 AM) Room air (09/12/22 3:22 AM) Blood pressure sites Arm, right (09/12/22 3:22 AM) Arm, left (09/12/22 12:20 AM) Arm, right (09/11/22 7:02 PM) Temperature Route Oral (09/12/22 11:13 AM) Oral (09/12/22 7:00 AM) Oral (09/12/22 3:22 AM) Dry Weight 138.4 kg (09/09/22 9:35 PM) 138.4 kg (09/09/22 5:44 PM) 138.4 kg (09/09/22 5:41 PM) Weight Obtained Via Bed scale (09/09/22 9:05 PM) Patient/family stated (09/09/22 5:41 PM) Social History Social History Type Response Smoking Status 10 or more cigarette s (1/2 pack or more)/day in last 30 days entered on: 09/07/18 Sex Admission evaluation note * Sonali ESTES, Skylar: MODIFY, PERFORM Event Display: Admission Note Authored Date: [id number] Patient: ??JORGE MORA ? Age:??22 Years?Sex:??Female?:??2000?? Chief Complaint/Reason for Consultation Intentional OD on home meds, reports taking 7 bubble packs of night meds. Discharged from [facility]. History of Present Illness This is a 22-year-old female to male transgender with pronouns he them, history of major depressivedisorder, recurrent severe question of borderline disorder, PTSD, obesity who has multiple admissions to the mental health unit coming in today with intentional overdose. ?? According to the patient they took 7 blister packs of the evening medications and each pack includes 2 tablets of desmopressin, 1 tablet of topiramate, 1 tablet of prazosin, 2 tablets of lithium, 2 tablets of gabapentin.?? The patient took these medications about 45 minutes prior to presentation.??She reports several episodes of vomiting however no diarrhea no cough no fever no shortness of breath.?? No somnolence, she is alert and oriented x3. ?? She does have a baseline persistent tremor which has happened since she overdosed on lithium about a month ago. ?? On presentation to the ED she is persistently tachycardic however is hemodynamically stable and saturating appropriately on room air.?? Lab work-up with CBC being completely normal, electrolytes are largely normal as well kidney function at baseline, no abnormalities in LFTs EKG done which is sinus rhythm, QTc of 459, no ST elevation.?? Apart from a very mildly elevated ALT.?? Hinsdale level detected which is 2.1, no ethanol detected no other U-Tox substances, Tylenol level less than 5.?? Poison control was called by the ED they recommended initial normal saline bolus and then 200 cc of normal saline until lithium level has peaked and begins to drop again to a normal level.?? Patient willrequire 4-hour EKGs and every 2 lithium checks as well.?? She will need a hospital monitor and close?? monitoring.?? Review of Systems Full review of systems conducted, negative unless mentioned in the HPI Objective Vital Signs?? Temperature: 99.1 DegF (09/09/22 17:41:00) Temperature Route: Oral (09/09/22 17:41:00) Pulse Rate:??113 bpm??High (09/09/22 18:40:00) Respiratory Rate: 18 br/min (09/09/22 18:40:00) Systolic Blood Pressure: 119 mm Hg (09/09/22 18:40:00) Diastolic Blood Pressure: 67 mm Hg (09/09/22 18:40:00) Blood pressure sites: Arm, left (09/09/22 17:41:00) Mean Arterial Pressure: 93 mm Hg (09/09/22 17:41:00) Pulse Pressure: 52 mm Hg (09/09/22 18:40:00) Oxygen Saturation: 95 % (09/09/22 18:40:00) Mode of Delivery (Oxygen): Room air (09/09/22 18:40:00) ? Physical Exam ?? General: Alert, does not appear to be in acute distress Eyes: No scleral icterus Respiratory: Mild rhonchi however no tachypnea, equal bilaterally respiratory effort GI: Soft nontender nondistended Cardiovascular: S1-S2 regular Neuro: Seen moving all extremities, grossly nonfocal Skin: No obvious rash, erythema, evidence of infection psych, mood appropriate to the situation Assessment/Plan ??This is a 22-year-old female to male transgender with pronouns he them, history of major depressive disorder, recurrent severe question of borderline disorder, PTSD, obesity who has multiple admissions to the mental health unit coming in today with intentional overdose. ??Lab work-up showing elevated lithium level, poison control contacted. ? Intentional overdose Took 2 of her blister packs medications which contain??topiramate, lithium, gabapentin Lab work-up largely unremarkable apart from elevated lithium of 2.1 She is not sedated, confused, alert and oriented however did have vomiting prior to presentation ?? ED contacted poison control: Recommend excessive hydration, ??lithium checks and monitor EKGs, alsoreceiving charcoal in the ED currently ?? Plan Continue hydration with normal saline at 200 an hour Every 2 hour lithium checks Monitor EKG every 4 hours Every 4 neurochecks Constant salvage determiner We will continue to monitor mental status carefully We will hold all of her psychiatric medications tonight Psych consult tomorrow ? Quality measures Code:??Full Diet:??N.p.o. except medication DVT prophylaxis: Pauda score of 1, hold chemoprophylaxis ? Skylar Lyon [id number] Histories Allergies Allergies ?(Active and Proposed Allergies Only) ibuprofen? (Severity: Unknown severity, Onset: Unknown) ?Comments: pt told ??notto take as she takes lithium Thorazine? (Severity: Unknown severity, Onset: Unknown) ?Reactions: Skin rash Geodon? (Severity: Unknown severity, Onset: Unknown) ?Reactions: full body tremors Trileptal? (Severity: Unknown severity, Onset: Unknown) ? Past Medical History/Problem List Active Problems??(6) COVID-19 COVID-19 virus infection Depression Major depressive disorder, recurrent Severe obesity Tobacco dependence ? Past Surgical History Cholecystectomy ? Social History Alcohol Details:??Use: Never. Employment/School Details:??Status: Unemployed. Exercise Details:??Self assessment: Poor condition. Home/Environment Details:??Living situation: Home/Independent. ??Lives with: Housemates. Nutrition/Health Details:??Diet: lactose free. Sexual Details:??Sexually involved in last 6 months: No. ??Gender identity: Jzthkw-ok-Scti (FTM)/ Transgender Male/Trans Man. ??Preferred pronoun: He/him. Substance Abuse Details:??Use: Never. Tobacco Details:??Use: 10 or more cigarettes (1/2 pack or more)/day in last 30 days. Electronic Cigarette/Vaping Details:??Electronic Cigarette Use: Never. ? Family History Father: Diabetes mellitus; Hypertension Mother: Cancer; Diabetes mellitus; Hypertension Sister: Depression ? Medications Home Medications DiphenhydrAMINE (diphenhydrAMINE 50 mg oral capsule)?1?capsule?50?Milligram?By Mouth?2 times a day?as needed?Anxiety Fluoxetine (PROzac 20 mg oral capsule)?40?Milligram?2?capsule?By Mouth?Daily Gabapentin (gabapentin 300 mg oral capsule)?600?Milligram?2?capsule?By Mouth?3 times a day Haloperidol (haloperidol 5 mg oral tablet)?5?Milligram?1?tablet?By Mouth?3 times a day?as needed?Anxiety Hinsdale (lithium 300 mg oral tablet)?300?Milligram?By Mouth?2 times a day Methylphenidate (methylphenidate 54 mg oral tablet, extended release)?1?tab(s)?54?Milligram?By Mouth?Daily Prazosin (prazosin 2 mg oral capsule)?1?capsule?2?Milligram?By Mouth?Daily at bedtime Topiramate (topiramate 25 mg oral tablet)?25?Milligram?By Mouth?Daily ? Results Recent Labs BLOOD COUNT & DIFF WBC 9.4 k/mm3 ()?? 09/09/2022 18:28 RBC 5.26 m/mm3 ()?? 09/09/2022 18:28 Hgb 14.6 Gm/dL ()?? 09/09/2022 18:28 Hct 43.9 % ()?? 09/09/2022 18:28 MCV 83.5 femtoliters ()?? 09/09/2022 18:28 MCH 27.8 pg ()?? 09/09/2022 18:28 MCHC 33.3 g/dL ()?? 09/09/2022 18:28 Platelet Count 189 k/mm3 ()?? 09/09/2022 18:28 RDW-SD 39.6 femtoliters ()?? 09/09/2022 18:28 MPV 12.8 femtoliters (High)?? 09/09/2022 18:28 Nucleated RBC (Automated) 0.0 #/100 WBC'S ()?? 09/09/2022 18:28 Abs. NRBC 0.0 k/mm3 ()?? 09/09/2022 18:28 Abs. Neut 4.9 k/mm3 ()?? 09/09/2022 18:28 Abs. Lymph 3.4 k/mm3 (High)?? 09/09/2022 18:28 Abs. Winn 0.9 k/mm3 ()?? 09/09/2022 18:28 Abs. Eo 0.2 k/mm3 ()?? 09/09/2022 18:28 Abs. Baso 0.1 k/mm3 ()?? 09/09/2022 18:28 Neut % 51.5 % ()?? 09/09/2022 18:28 Lymph % 35.8 % ()?? 09/09/2022 18:28 Winn % 9.4 % ()?? 09/09/2022 18:28 Eos % 2.4 % ()?? 09/09/2022 18:28 Baso % 0.7 % ()?? 09/09/2022 18:28 Imm Gran 0.2 % ()?? 09/09/2022 18:28 Abs. Imm Gran 0.0 k/mm3 ()?? 09/09/2022 18:28 ?? CHEM GENERAL Sodium 140 mmol/L ()?? 09/09/2022 18:28 Potassium 4.4 mmol/L ()?? 09/09/2022 18:28 Chloride 108 mmol/L (High)?? 09/09/2022 18:28 Bicarbonate Level 22 mmol/L ()?? 09/09/2022 18:28 Anion Gap 10 ()?? 09/09/2022 18:28 Glucose Level 110 mg/dL (High)?? 09/09/2022 18:28 BUN 8 mg/dL ()?? 09/09/2022 18:28 Creatinine-Blood 0.7 mg/dL ()?? 09/09/2022 18:28 Estimated GFR Creatinine 121 ML/MIN/1.73 M2 ()?? 09/09/2022 18:28 Magnesium 1.9 mg/dL ()?? 09/09/2022 18:28 Alkaline Phosphatase 83 units/L ()?? 09/09/2022 18:28 Lipase 54 units/L ()?? 09/09/2022 18:28 AST (SGOT) 29 units/L ()?? 09/09/2022 18:28 ALT (SGPT) 49 units/L (High)?? 09/09/2022 18:28 Bilirubin, Total 0.2 mg/dL ()?? 09/09/2022 18:28 ?? COAG INR 1.0 ()?? 09/09/2022 18:28 Protime (PT) 10.2 seconds ()?? 09/09/2022 18:28 ?? ENDOCRINE/TUMOR MARKER Blood <1 mIU/mL ()?? 09/09/2022 18:28 ?? FLUID STUDIES Hold Other SPECIMEN DISCARDED AFTER 1 WEEK ()?? 09/09/2022 18:28 ?? TOXICOLOGY/TDM Ethanol, Serum or Plasma NONE DETECTED mg/dL ()?? 09/09/2022 18:28 Hinsdale Level 2.1 mmol/L (Critical)?? 09/09/2022 18:28 Salicylate Level <0.3 mg/dL (Low)?? 09/09/2022 18:28 Acetaminophen Level <5 mg/L (Low)?? 09/09/2022 18:28 ?? URINE OTHER Est Creatinine Clearance 116.65 mL/min ()?? 09/09/2022 18:51 ?? VIROLOGY COVID-19 by RT-PCR NEGATIVE ()?? 09/09/2022 17:53 ? * Skylar Lyon MD: PERFORM Event Display: Admission Note Authored Date: Hinsdale levels are downtrending.?? Spoke to poison control overnight again recommend to continue same rate of IV fluids at 200 an hour??and??will now be checking lithium levels as frequently every 4 hours now EKG study * Event Display: ECG 12-Lead Authored Date: Please click on pdf link to open report * Event Display: ECG 12-Lead Authored Date: Ventricular Rate: 100 BPM Atrial Rate: 359 BPM QRS Duration: 88 ms Q-T Interval: 356 ms QTC Calculation(Bazett): 459 ms P Seanor: 37 degrees R Seanor: 60 degrees T Seanor: 35 degrees Poor data quality, interpretation may be adversely affected Probably Sinus tachycardia Abnormal ECG When compared with ECG of 09-SEP-2022 17:59, Baseline artifact now present Confirmed by WEN MURCIA () on 09/10/2022 1:24:19 PM Candia: WEN MURCIA * Event Display: ECG 12-Lead Authored Date: Please click on pdf link to open report * Event Display: ECG 12-Lead Authored Date: Ventricular Rate: 103 BPM Atrial Rate: 103 BPM P-R Interval: 170 ms QRS Duration: 86 ms Q-T Interval: 346 ms QTC Calculation(Bazett): 453 ms P Seanor: 38 degrees R Seanor: 50 degrees T Seanor: 26 degrees Poor data quality, interpretation may be adversely affected Sinus tachycardia Otherwise normal ECG When compared with ECG of 17-AUG-2022 05:55, AR interval has decreased Confirmed by WEN MURCIA ([id number]) on 09/10/2022 1:21:46 PM Candia: WEN MURCIA Hospital Progress note * Genesis Lea RN: VERIFY, PERFORM, SIGN Event Display: Progress Note Hospital Authored Date: [id number] Patient: JORGE MORA Age: 22 years Sex: Female : 2000 Associated Diagnoses: None Author: Genesis Lea RN Findings Problem Related to Alteration in Psychosocial : Alteration in Psychosocial Function/new 09/12/2022 14:00 EDT Alteration in Psychosocial Related to Suicidal Goals & Outcomes, Psychosocial Psychosocial support will be provided to Pt/S.O. as needed, Pt will identify stressors leading up to event, Pt/caregiver will be offered appropriate resources &support, Pt/caregiver will express feelings/needs/fears /concerns, Pt/caregiver will maintain/obtain psychological stability Interventions, Psychosocial Resolved problem, Interventions no longer in effect BH Goals/Interventions, Psychosocial Yes Psychosocial, Problem Start 09/10/2022 9:00 Reviewed Plan with, Psychosocial Patient Patient Progression, Psychosocial Resolved problem Psychosocial, Problem Resolved 09/12/2022 14:01 Comment: Psychosocial pt is still reported SI but being moved to MHU. Problem resolved on floor 09/12/2022 7:00 EDT Alteration in Psychosocial Related to Suicidal Goals & Outcomes, Psychosocial Psychosocial support will be provided to Pt/S.O. as needed, Pt will identify stressors leading up to event, Pt/caregiver will be offered appropriate resources &support, Pt/caregiver will express feelings/needs/fears /concerns, Pt/caregiver will maintain/obtain psychological stability Interventions, Psychosocial Assess psychosocial needs, Assess readiness to learn needed lifestyle changes, Assess/monitor level of consciousness, Collaborate with provider for psychiatric consult, Evaluate resources & support system available to pt, Offer support; discuss coping strategies, Provide a calm, supportive environment, Provide chances to express concerns/emotions/expectations, Provide info on community resources for education, support, Provide information about illness and recovery, Provide verbal limits if pt's behavior escalates, Initiate constant salvage determiner while pt is actively suicidal, Assess environment for safety, Assess pt's suicidal ideation, Monitor effectiveness of anti-depressant medication BH Goals/Interventions, Psychosocial Yes Psychosocial, Problem Start 09/10/2022 9:00 Reviewed Plan with, Psychosocial Patient Patient Progression, Psychosocial Pt progressing according to plan . Falls Risk Assessment : Falls Data 09/12/2022 7:58 EDT Fall Elimination No impairment Fall Agitation/Anxiety/Depression Anxious, Depression Plan: Fall Agitation/Anxiety/Depression Identify triggers for agitation/anxiety to reduce them Fall Related Sign/Symptom/Condition None Fall Cognitive Limitations No impairment Fall Sensory and Physical Function No impairment Fall High Risk for Injury None of the above Total Falls Risk Score 2 Fall Risk Level No Risk Falls Prevention Plan for Low Risk Bed in lowest locked position, Provide patient/family falls prevention education, Evaluate footwear & ensure patient has non-skid slippers, Place personal care items & call wilburn within reach, Instruct patient/family to request assistance with ambulatio, Instruct patient/family not to get up without assistance, Supervise the patient when ambulating or making transfers, Check that needs are met to minimize attempts to get up, Hourly rounds, Ensure safe & uncluttered environment, Communicate falls risk to all providers, Consider consult with Geriatric Team as appropriate . Nursing Data Neurological Data. : Neurological Data. 09/12/2022 8:45 EDT Neurological Symptoms Tremors Level of Consciousness Full Consciousness Orientated to person, place, time Person, Place, Time, Event Hallucinations None Facial Symmetry Intact Characteristics of Speech Clear and normal Swallowing Difficulty None Strength LUE 5-Active movement against gravity & full resistance Strength RUE 5-Active movement against gravity & full resistance Strength LLE 5-Active movement against gravity & full resistance Strength RLE 5-Active movement against gravity & full resistance Tone LUE Normal Tone RUE Normal Tone LLE Normal Tone RLE Normal Sensation LUE Intact Sensation RUE Intact Sensation LLE Intact Sensation RLE Intact Movement LUE Spontaneous Movement RUE Spontaneous Movement LLE Spontaneous Movement RLE Spontaneous Gait Steady Tremors Physiologic 1 - 10 Pain Scale Score 4 (Modified) Neuro WNL except Eyes and Movements Conjugate gaze: Move in same direction at same speed Headache None Memory Intact Swallow - Neuro Normal . Vital Signs : VITAL SIGNS SECTION 09/12/2022 11:13 EDT Early Warning Score 0.00 09/12/2022 11:13 EDT Temperature 98.1 DegF Temperature Route Oral Pulse Rate 67 bpm Respiratory Rate 17 br/min Systolic Blood Pressure 125 mm Hg Diastolic Blood Pressure 82 mm Hg Mean Arterial Pressure 96 mm Hg Pulse Pressure 43 mm Hg Oxygen Saturation 99 % Mode of Delivery (Oxygen) Room air 09/12/2022 7:00 EDT Temperature 97.8 DegF Temperature Route Oral Pulse Rate 68 bpm Respiratory Rate 17 br/min Systolic Blood Pressure 131 mm Hg Diastolic Blood Pressure 68 mm Hg Mean Arterial Pressure 89 mm Hg Pulse Pressure 63 mm Hg Oxygen Saturation 98 % Mode of Delivery (Oxygen) Room air . Narrative/Incidental Please see biophysical assessment above. Pt is alert and oriented x4. LS- clear, no SOB or cough. Pt reported feeling no nausea or dizziness. Bilateral knee pain rated 4/10- Tylenol given with positive effect. Occasional baseline tremors noted. Pt reported feeling passively suicidal x2 today and MD was notified each time. MD would also come onto the floor to assess pt. Pt encouraged her self tokeep alternating her grounding techniques. She is aware of many. 1:[address] for safety[address] Ambulateswith steady gait through hallways. Voiding well. afeb, VSS. Continue to monitor and reassess.. * Fabiana Morley MD: PERFORM Event Display: Progress Note Hospital Authored Date: Patient: ??MORGAN, JORGE ? Age:??22 Years?Sex:??Female?:??2000?? Subjective No acute events overnight. ??Cooperative with care. ??Tolerating therapy.?? Ambulating the hallways??is appropriate. The patient states??that he??has??bad thoughts??come to him when left alone??and feels comfortable with a constant salvage determiner Review of Systems A full review of systems was completed and is otherwise negative except as mentioned in history of present illness. Allergies Allergies ?(Active and Proposed Allergies Only) ibuprofen? (Severity: Unknown severity, Onset: Unknown) ?Comments: pt told ??notto take as she takes lithium Thorazine? (Severity: Unknown severity, Onset: Unknown) ?Reactions: Skin rash Geodon? (Severity: Unknown severity, Onset: Unknown) ?Reactions: full body tremors Trileptal? (Severity: Unknown severity, Onset: Unknown) ? Objective Measurements?? Height: 168 cm (09/12/22) Weight: 138.4 kg (09/09/22) Dry Weight: 138.4 kg (09/09/22) Body Mass Index:??49.04 kg/m2??Critical (09/09/22) ? Vital Signs?? Temperature: 98.1 DegF (09/12/22 11:13:00) Temperature Route: Oral (09/12/22 11:13:00) Pulse Rate: 67 bpm (09/12/22 11:13:00) Respiratory Rate: 17 br/min (09/12/22 11:13:00) Systolic Blood Pressure: 125 mm Hg (09/12/22 11:13:00) Diastolic Blood Pressure: 82 mm Hg (09/12/22 11:13:00) Blood pressure sites: Arm, right (09/12/22 03:22:00) Mean Arterial Pressure: 96 mm Hg (09/12/22 11:13:00) Pulse Pressure: 43 mm Hg (09/12/22 11:13:00) Oxygen Saturation: 99 % (09/12/22 11:13:00) Mode of Delivery (Oxygen): Room air (09/12/22 11:13:00) Early Warning Score: 0 (09/12/22 11:13:36) ? Intake/Output? 09/09 20:17 09/12 07:00 09/11 07:00 09/10 07:00 09/09 07:00 ?? 09/12 11:26 09/12 11:26 09/12 06:59 09/11 06:59 09/10 06:59 Intake ? 2983.3 ?0 ?0 ?920 ? 2063.3 Output ? 1020 ?0 ?0 ?220 ?800 Net Total ? 1963.3 ?0 ?0 ?700 ? 1263.3 ? Urine Count ?3 ?0 ?0 ?3 ?0 ? Physical Exam onstitutional: Alert, in no distress with baseline tremor Mental Status: Oriented to person, place and time. Head: Normocephalic. Eyes: Pupils are equal, round and reactive to light. Extraocular muscles intact. Ear, Nose and Throat: Oropharynx clear, mucous membranes moist. Ears and nose without masses, lesions or deformities. Trachea midline. Neck: Supple, Full range of motion. Respiratory: Clear to auscultation. No wheezing, rales or rhonchi. Cardiovascular: S1 S2 regular. No murmurs, rubs or gallops. Gastrointestinal: Abdomen soft, non-tender, non-distended. Normal bowel sounds. No pulsatile mass. No hepatosplenomegaly. Genitourinary: No costovertebral angle tenderness. Neurologic: Cranial nerves II-XII grossly intact. No focal neurological deficits. Flexor plantar response. Moves all extremities spontaneously. Sensation intact bilaterally. Skin: No rashes or lesions. No petechiae or purpura.?? Musculoskeletal: No cyanosis or clubbing. No gross deformities. Normal range of motion. Heme/Lymphatics/Immun: Palpation of neck reveals no swelling or tenderness of neck nodes. Palpationof groin reveals no swelling or tenderness of groin nodes. Psychiatric: Anxious Results Recent Labs No labs resulted between 09/11/2022 00:00 and 09/12/2022 11:26? Assessment/Plan Chief Complaint: Intentional OD on home meds, reports taking 7 bubble packs of night meds. Discharged from [facility] yesterday. ?? Diagnoses 1. ??Intentional overdose ??(T50.902A) 2. 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 ??Tobacco dependence ??(F17.200) 4. ??Major depressive disorder, recurrent ??(F33.9) 5. ??PTSD (post-traumatic stress disorder) ??(F43.10) ?? Assessment:??Dudley is a 22-year-old??female to male transgender,??history of PTSD, history of borderline??disorder, history of??MDD??presents to the emergency room??for an intentional overdose on home medications??found to have lithium toxicity ?? Intentional overdose (T50.902A):??- Hinsdale toxicity (T56.891A):??-??Appreciate the assistance from poison control.??Initially started on normal saline and??followed??with??EKGs every 4 hours and 2 hours lithium level checks.??Hinsdale levels have been??downtrending appropriately. The patient asymptomatic.??Hinsdale levels have now normalized. After discussing with??poison control, IV fluid has been discontinued.??No further??lithiumchecks or EKGs required at this time.??I reviewed cardiac monitoring with no??arrhythmias noted.??We will continue to hold lithium??and will??allow psychiatry??assistance with??resumption as necessary. ?? Tobacco dependence (F17.200):??Nicotine patch has been ordered ?? Major depressive disorder, recurrent (F33.9):??Resume fluoxetine ?? PTSD (post-traumatic stress disorder) (F43.10):??Continue with fluoxetine ?? VTE Prophylaxis:??SCDs ?VTE Prophylaxis Assessment:??Risk Level documented as Low Risk ?? Code Status:??Full ?Order Code Status:??Code Status Ordered ?I spent a total of 40 minutes today reviewing the chart/medical records, speaking with the patient, formulating and discussing the treatment plan,??and documenting the findings and encounter. * Salvador Mcnair RN: PERFORM, MODIFY, SIGN, VERIFY Event Display: Progress Note Hospital Authored Date: [id number] Patient: JORGE MORA Age: 22 years Sex: Female : 2000 Associated Diagnoses: None Author: Salvador Mcnair RN Findings Problem Related to Alteration in Psychosocial : Alteration in Psychosocial Function/new 09/12/2022 0:41 EDT Alteration in Psychosocial Related to Suicidal Goals & Outcomes, Psychosocial Psychosocial support will be provided to Pt/S.O. as needed, Pt will identify stressors leading up to event, Pt/caregiver will be offered appropriate resources &support, Pt/caregiver will express feelings/needs/fears /concerns, Pt/caregiver will maintain/obtain psychological stability Interventions, Psychosocial Assess psychosocial needs, Evaluate resources & support system available to pt, Offer support; discuss coping strategies, Provide a calm, supportive environment, Provide chances to express concerns/emotions/expectations, Provide info on community resources for educati on, support, Initiate constant salvage determiner while pt is actively suicidal, Assess environment for safety, Assess pt's suicidal ideation, Monitor effectiveness of anti-depressant medication BH Goals/Interventions, Psychosocial Yes Psychosocial, Problem Start 09/10/2022 9:00 Reviewed Plan with, Psychosocial Patient Patient Progression, Psychosocial Pt progressing according to plan . Nursing Data Vital Signs : VITAL SIGNS SECTION 09/12/2022 3:22 EDT Temperature 98.0 DegF Temperature Route Oral Pulse Rate 70 bpm Respiratory Rate 20 br/min Systolic Blood Pressure 113 mm Hg Diastolic Blood Pressure 75 mm Hg Blood pressure sites Arm, right Mean Arterial Pressure 88 mm Hg Pulse Pressure 38 mm Hg Oxygen Saturation 99 % Mode of Delivery (Oxygen) Room air 09/12/2022 0:20 EDT Early Warning Score 5.00 09/12/2022 0:20 EDT Temperature 97.8 DegF Temperature Route Oral Pulse Rate 60 bpm Respiratory Rate 16 br/min Systolic Blood Pressure 118 mm Hg Diastolic Blood Pressure 68 mm Hg Blood pressure sites Arm, left Mean Arterial Pressure 85 mm Hg Pulse Pressure 50 mm Hg Oxygen Saturation 98 % Mode of Delivery (Oxygen) Room air . Narrative/Incidental Report taken from SCOTT Jordan and bedside safety check completed. Patient is A+Ox4, baseline tremors to hands, neuros intact. Patient reported feeling like they are in a much better headspace tonight and that their coping strategies are working right now. Patient slept comfortably most of the night. Would get up to walk the zamudio a couple of times when legs felt restless. Clear lung sounds, not on hospital monitor. Did not report any pain in the night. Last BM 09/11. Voiding WNL independently in the bathroom. Constant salvage determiner in place for suicidal ideation. Ambulates independent with a cane. Uses call wilburn appropriately.. Note * Genesis Lea RN: PERFORM Event Display: Discharge/Transfer Note Hospital Authored Date: Nursing Discharge Note Entered On: 09/12/2022 14:13 EDT Performed On: 09/12/2022 14:13 EDT by Genesis Lea RN Nursing Discharge Note 2 Discharge Time : 09/12/2022 14:13 EDT Discharge Level of Care at Discharge : Psychiatric Facility/Unit Patient Left Unit Via : Ambulatory Patient Accompanied Off Unit with : Responsible adult DC Instructions Provided & Signed by Pt : No Patient Understands D/C Instructions : No Patient Instructions Discharge Signed : No Instructions for Discharge Comments : transferred in house to MHU Did Pt have Specialty Bed or Wound Vac : No Genesis Lea RN - 09/12/2022 14:13 EDT * Fabiana Morley MD: PERFORM Event Display: Discharge/Transfer Note Hospital Authored Date: [id number] Patient: ??MORGAN, JORGE ? Age:??22 Years?Sex:??Female?:??2000?? Patient Information Discharge Location: [facility] Primary Care Physician: Narda Wilson NP Admit Date/Time: 09/09/22 20:17 Discharge Disposition Discharge Disposition: ?? Discharge Diagnosis Intentional overdose (T50.902A) Hinsdale toxicity (T56.891A) Tobacco dependence (F17.200) Major depressive disorder, recurrent (F33.9) PTSD (post-traumatic stress disorder) (F43.10) ?? _ Discharge Medications Desmopressin (desmopressin 0.2 mg oral tablet)?2?tab(s)?0.4?Milligram?By Mouth?Daily at bedtime DiphenhydrAMINE (diphenhydrAMINE 50 mg oral capsule)?1?capsule?50?Milligram?By Mouth?2 times a day?as needed?Anxiety Fluoxetine (PROzac 20 mg oral capsule)?40?Milligram?2?capsule?By Mouth?Daily Gabapentin (gabapentin 300 mg oral capsule)?600?Milligram?2?capsule?By Mouth?3 times a day Haloperidol (haloperidol 5 mg oral tablet)?5?Milligram?1?tablet?By Mouth?3 times a day?as needed?Anxiety Hinsdale (lithium 300 mg oral tablet)?2?tab(s)?600?Milligram?By Mouth?2 times a day Methylphenidate (methylphenidate 54 mg oral tablet, extended release)?1?tab(s)?54?Milligram?By Mouth?Daily Prazosin (prazosin 2 mg oral capsule)?1?capsule?2?Milligram?By Mouth?Daily at bedtime Topiramate (topiramate 25 mg oral tablet)?25?Milligram?By Mouth?Daily ? Quality Measures Tobacco Use Treatment:? Allergies Allergies ?(Active and Proposed Allergies Only) ibuprofen? (Severity: Unknown severity, Onset: Unknown) ?Comments: pt told ??notto take as she takes lithium Thorazine? (Severity: Unknown severity, Onset: Unknown) ?Reactions: Skin rash Geodon? (Severity: Unknown severity, Onset: Unknown) ?Reactions: full body tremors Trileptal? (Severity: Unknown severity, Onset: Unknown) ? Future Appointments 2022 2:00 PM EDT ?? With: Michael LITHOGRAPHIC PHOTOGRAPHER, Blaire Skaggs Where: [facility] Status: Pending Objective Assessment and Plan Assessment:??Dudley is a 22-year-old??female to male transgender,??history of PTSD, history of borderline??disorder, history of??MDD??presents to the emergency room??for an intentional overdose on home medications??found to have lithium toxicity ?? Intentional overdose (T50.902A):??- Hinsdale toxicity (T56.891A):??-??Appreciate the assistance from poison control.??Initially started on normal saline and??followed??with??EKGs every 4 hours and 2 hours lithium level checks.??Hinsdale levels have been??downtrending appropriately. The patient asymptomatic.??Hinsdale levels have now normalized. After discussing with??poison control, IV fluid has been discontinued.??No further??lithiumchecks or EKGs required at this time.??I reviewed cardiac monitoring with no??arrhythmias noted.??We will continue to hold lithium??and will??allow psychiatry??assistance with??resumption as necessary. ?? Tobacco dependence (F17.200):??Nicotine patch has been ordered ?? Major depressive disorder, recurrent (F33.9):??Resume fluoxetine ?? PTSD (post-traumatic stress disorder) (F43.10):??Continue with fluoxetine ? Measurements?? Height: 168 cm (09/12/22) Weight: 138.4 kg (09/09/22) Dry Weight: 138.4 kg (09/09/22) Body Mass Index:??49.04 kg/m2??Critical (09/09/22) ? Vital Signs?? Temperature: 98.1 DegF (09/12/22 11:13:00) Temperature Route: Oral (09/12/22:13:00) Pulse Rate: 67 bpm (09/12/22 11:13:00) Respiratory Rate: 17 br/min (09/12/22 11:13:00) Systolic Blood Pressure: 125 mm Hg (09/12/22:13:) Diastolic Blood Pressure: 82 mm Hg (09/12/22:13:00) Blood pressure sites: Arm, right (09/12/22 03:22:00) Mean Arterial Pressure: 96 mm Hg (09/12/22:13:00) Pulse Pressure: 43 mm Hg (09/12/22:13:00) Oxygen Saturation: 99 % (09/12/22:13:00) Mode of Delivery (Oxygen): Room air (09/12/22:13:00) Early Warning Score: 0 (09/12/22 11:13:36) ? . Physical Exam Constitutional: Alert, in no distress. Mental Status: Oriented to person, place and time. Head: Normocephalic. Eyes: Pupils are equal, round and reactive to light. Extraocular muscles intact. Ear, Nose and Throat: Oropharynx clear, mucous membranes moist. Ears and nose without masses, lesions or deformities. Trachea midline. Neck: Supple, Full range of motion. Respiratory: Clear to auscultation. No wheezing, rales or rhonchi. Cardiovascular: S1 S2 regular. No murmurs, rubs or gallops. Gastrointestinal: Abdomen soft, non-tender, non-distended. Normal bowel sounds. No pulsatile mass. No hepatosplenomegaly. Genitourinary: No costovertebral angle tenderness. Neurologic: Cranial nerves II-XII grossly intact. No focal neurological deficits. Flexor plantar response. Moves all extremities spontaneously. Sensation intact bilaterally. Skin: No rashes or lesions. No petechiae or purpura.?? Musculoskeletal: No cyanosis or clubbing. No gross deformities. Normal range of motion. Heme/Lymphatics/Immun: Palpation of neck reveals no swelling or tenderness of neck nodes. Palpationof groin reveals no swelling or tenderness of groin nodes. Psychiatric: Normal mood and affect Pending Results No Pending Results Follow-Up Appointments Added Follow Up ?Time Frame ?Comments Katie RILEY, Narda Fonseca Post Discharge Care Diet: Regular Diet Discharge ?09/12/22 13:35:00 EDT Home Health Face to Face ^HomeHealth[facility] Results Discharge Labs BLOOD COUNT & DIFF WBC 7.9 k/mm3 ()?? 09/10/2022 04:39 RBC 4.41 m/mm3 ()?? 09/10/2022 04:39 Hgb 12.3 Gm/dL ()?? 09/10/2022 04:39 Hct 39.0 % ()?? 09/10/2022 04:39 MCV 88.4 femtoliters ()?? 09/10/2022 04:39 MCH 27.9 pg ()?? 09/10/2022 04:39 MCHC 31.5 g/dL (Low)?? 09/10/2022 04:39 Platelet Count 141 k/mm3 (Low)?? 09/10/2022 04:39 RDW-SD 43.4 femtoliters ()?? 09/10/2022 04:39 MPV 13.0 femtoliters (High)?? 09/10/2022 04:39 Nucleated RBC (Automated) 0.0 #/100 WBC'S ()?? 09/10/2022 04:39 Abs. NRBC 0.0 k/mm3 ()?? 09/10/2022 04:39 Abs. Neut 4.9 k/mm3 ()?? 09/09/2022 18:28 Abs. Lymph 3.4 k/mm3 (High)?? 09/09/2022 18:28 Abs. Winn 0.9 k/mm3 ()?? 09/09/2022 18:28 Abs. Eo 0.2 k/mm3 ()?? 09/09/2022 18:28 Abs. Baso 0.1 k/mm3 ()?? 09/09/2022 18:28 Neut % 51.5 % ()?? 09/09/2022 18:28 Lymph % 35.8 % ()?? 09/09/2022 18:28 Winn % 9.4 % ()?? 09/09/2022 18:28 Eos % 2.4 % ()?? 09/09/2022 18:28 Baso % 0.7 % ()?? 09/09/2022 18:28 Imm Gran 0.2 % ()?? 09/09/2022 18:28 Abs. Imm Gran 0.0 k/mm3 ()?? 09/09/2022 18:28 ?? CHEM GENERAL Sodium 138 mmol/L ()?? 09/10/2022 04:39 Potassium 3.8 mmol/L ()?? 09/10/2022 04:39 Chloride 110 mmol/L (High)?? 09/10/2022 04:39 Bicarbonate Level 22 mmol/L ()?? 09/10/2022 04:39 Anion Gap 6 ()?? 09/10/2022 04:39 Glucose Level 88 mg/dL ()?? 09/10/2022 04:39 BUN 7 mg/dL ()?? 09/10/2022 04:39 Creatinine-Blood 0.7 mg/dL ()?? 09/10/2022 04:39 Estimated GFR Creatinine 121 ML/MIN/1.73 M2 ()?? 09/10/2022 04:39 Calcium 8.5 mg/dL (Low)?? 09/10/2022 04:39 Magnesium 1.9 mg/dL ()?? 09/09/2022 18:28 Alkaline Phosphatase 83 units/L ()?? 09/09/2022 18:28 Lipase 54 units/L ()?? 09/09/2022 18:28 AST (SGOT) 29 units/L ()?? 09/09/2022 18:28 ALT (SGPT) 49 units/L (High)?? 09/09/2022 18:28 Bilirubin, Total 0.2 mg/dL ()?? 09/09/2022 18:28 ?? COAG INR 1.0 ()?? 09/09/2022 18:28 Protime (PT) 10.2 seconds ()?? 09/09/2022 18:28 ?? ENDOCRINE/TUMOR MARKER Blood <1 mIU/mL ()?? 09/09/2022 18:28 ? FLUID STUDIES Hold Other SPECIMEN DISCARDED AFTER 1 WEEK ()?? 09/09/2022 18:28 ? MISC. CHEMISTRY Hold Gel Top SPECIMEN DISCARDED AFTER 1 WEEK ()?? 09/10/2022 15:55 ? TOXICOLOGY/TDM Ethanol, Serum or Plasma NONE DETECTED mg/dL ()?? 09/09/2022 18:28 Hinsdale Level 0.8 mmol/L ()?? 09/10/2022 11:54 Salicylate Level <0.3 mg/dL (Low)?? 09/09/2022 18:28 Barbiturate Screen, Urine NONE DETECTED ()?? 09/10/2022 08:47 Cannabinoid Screen, Urine NONE DETECTED ()?? 09/10/2022 08:47 Cocaine Metabolite Screen, Urine NONE DETECTED ()?? 09/10/2022 08:47 Benzodiazepine Screen, Urine NONE DETECTED ()?? 09/10/2022 08:47 Amphetamine Screen, Urine NONE DETECTED ()?? 09/10/2022 08:47 Opiate Screen, Urine NONE DETECTED ()?? 09/10/2022 08:47 Acetaminophen Level <5 mg/L (Low)?? 09/09/2022 18:28 ?? URINE OTHER Est Creatinine Clearance 116.65 mL/min ()?? 09/09/2022 18:51 ? VIROLOGY COVID-19 by RT-PCR NEGATIVE ()?? 09/09/2022 17:53 ? Microbiology ?? COVID-19 (Novel Coronavirus), Rapid PCR?? Completed?? Source: Nasal Body Site: Nose Collected Dt/Tm: 09/09/2022 17:53 Last Updated Dt/Tm: 09/09/2022 18:35 ? 35??minutes spent on discharge * Genesis Lea RN: PERFORM Event Display: Patient Education/Instruction Authored Date: [id number] Inpatient Adult Discharge Instructions [address] [address] Name: JORGE MORA : 2000 Visit: 09/09/2022 20:17:00 Current Date: 09/12/2022 13:35 Account: [id number] Inpatient Adult Discharge Instructions We would like [...] and their families. Surveys are administered by [employer] ?? If further treatment with your primary care physician or another doctor is recommended, it is important for you to keep the appointment. Call your primary care physician or return to the Emergency Department immediately if your condition worsens, fails to improve, or new symptoms develop. If you need to find a doctor, you can call [email or web address] for a referral at [phone] or toll free at [phone] or log in to [email or web address].. ?? You can view and manage your care through the patient portal or by using a health care sharonda of your choosing. [employer] is a website that allows you to securely view your medical information including your hospital discharge summary, office visit summaries, medications and follow-up visits. You can also request appointments, renew medications, and request access to your medical information using a health care sharonda of your choosing, or just ask a question. You can enroll at [email or web address] or register during your next office visit. You have been discharged from [facility], Patient Care Unit: [id number]. If you have any questions regarding these instructions after you leave, please call us and we will be happy to assist you. [facility] Your Care Team Attending Physician Fabiana Morley MD Discharging Providers Fabiana Morley MD Reason for Admission Intentional OD on home meds, reports taking 7 bubble packs of night meds. Discharged from [facility]. Your Diagnosis Intentional overdose Hinsdale toxicity Tobacco dependence Major depressive disorder, recurrent PTSD (post-traumatic stress disorder) Tests Performed Below is a partial list of the tests performed during your hospitalization. You may have had other tests and procedures not included in this list. Please discuss all test results with your provider. Acetaminophen Level Alcohol Level Alk Phos ALT Amphetamine Urine Screen Aspirin Level AST Barbiturate Urine Screen Basic Metabolic Panel Benzodiazepine Urine Screen BUN Cannabinoid Urine Screen CBC CBC w/ Differential Cocaine Urine Screen COVID-19 (Novel Coronavirus), Rapid PCR Creatinine Electrolytes Glucose Level HOLD GEL TUBE HOLD OTHER TUBE INR Lipase Hinsdale Level Magnesium Level Opiate Screen Urine Serum Quantitative Total Bilirubin Primary Care Provider Narda Wilson NP Advance Directive Health Care Proxy on File No Patient refuses to discuss Discharge Vitals Temperature: 98.1 DegF Height: 168 cm Pulse Rate: 67 bpm Weight: 138.4 kg Respiratory Rate: 17 br/min Body Mass Index:??49.04 kg/m2??Critical Systolic Blood Pressure: 125 mm Hg Body surface area: 2.54 Diastolic Blood Pressure: 82 mm Hg ?? Oxygen Saturation: 99 % ?? Studies Pending All tests and labs ordered during this hospital stay have been completed unless listed below. Please discuss all pending results with your provider listed above in these instructions. ?? No incomplete studies found What to do next Instructions From Your Doctor Discharge Orders Diet:??Regular Diet Scheduled Follow-Up Appointments 2022 2:00 PM EDT ?? With: Blaire Rodriguez NP Where: [facility] Status: Pending You Need to Schedule the Following Appointments Follow Up with??Narda Wilson NP Where: [address] [place] [id number]- Discharge Medications JORGE MORA :2000 Visit Date:09/09/2022 Medications: Please continue your medications until treatment is completed or stopped by your provider. Medications not listed below should be discontinued. Discuss any questions related to medications with your provider. What How Much When Instructions Next Dose Unchanged Desmopressin (desmopressin 0.2 mg oral tablet) 2 tab(s) Oral Daily at Bedtime 09:00 pm Unchanged DiphenhydrAMINE (diphenhydrAMINE 50 mg oral capsule) 1 capsule Oral Twice a day as needed for Anxiety as needed Unchanged Fluoxetine (PROzac 20 mg oral capsule) 2 capsule Oral Daily 09:00 am Unchanged Gabapentin (gabapentin 300 mg oral capsule) 2 capsule Oral 3 times a day 03:00 pm Unchanged Haloperidol (haloperidol 5 mg oral tablet) 1 tab(s) Oral 3 times a day as needed for Anxiety as needed Unchanged Hinsdale (lithium 300 mg oral tablet) 2 tab(s) Oral Twice a day 09:00 pm Unchanged Methylphenidate (methylphenidate 54 mg oral tablet, extended release) 1 tab(s) Oral Daily 09:00 am Unchanged Prazosin (prazosin 2 mg oral capsule) 1 capsule Oral Daily at Bedtime 09:00 pm Unchanged Topiramate (topiramate 25 mg oral tablet) 25 Milligram Oral Daily 09:00 am Test Results Below is a partial list of the most recent Laboratory test results done prior to this discharge. You may have had other tests and procedures not included in this list. Please discuss all test resultswith your provider. Est Creatinine Clearance - 116.65 mL/min (09/09/2022) Acetaminophen Level (09/09/2022) ? ?Acetaminophen Level - <5 mg/L Alcohol Level (09/09/2022) ???Ethanol, Serum or Plasma - NONE DETECTED Alk Phos (09/09/2022) ???Alkaline Phosphatase - 83 units/L ALT (09/09/2022) ???ALT (SGPT) - 49 units/L Amphetamine Urine Screen (09/10/2022) ???Amphetamine Screen, Urine - NONE DETECTED Aspirin Level (09/09/2022) ? ?Salicylate Level - <0.3 mg/dL AST (09/09/2022) ???AST (SGOT) - 29 units/L Barbiturate Urine Screen (09/10/2022) ???Barbiturate Screen, Urine - NONE DETECTED Basic Metabolic Panel (09/10/2022) ???Sodium - 138 mmol/L???Potassium - 3.8 mmol/L???Chloride - 110 mmol/L???Bicarbonate Level - 22 mmol/L???Anion Gap - 6???Glucose Level - 88 mg/dL???BUN - 7 mg/dL???Creatinine-Blood - 0.7 mg/dL???Estimated GFR Creatinine - 121 ML/MIN/1.73 M2???Calcium - 8.5 mg/dL Benzodiazepine Urine Screen (09/10/2022) ???Benzodiazepine Screen, Urine - NONE DETECTED BUN (09/09/2022) ???BUN - 8 mg/dL Cannabinoid Urine Screen (09/10/2022) ???Cannabinoid Screen, Urine - NONE DETECTED CBC (09/10/2022) ???WBC - 7.9 k/mm3???RBC - 4.41 m/mm3???Hgb - 12.3 Gm/dL???Hct - 39.0 %???MCV - 88.4 femtoliters???MCH - 27.9 pg???MCHC - 31.5 g/dL???Platelet Count - 141 k/mm3???RDW-SD - 43.4 femtoliters???MPV - 13.0 femtoliters???Nucleated RBC (Automated) - 0.0 #/100 WBC'S???Abs. NRBC - 0.0 k/mm3 CBC w/ Differential (09/09/2022) ???WBC - 9.4 k/mm3???RBC - 5.26 m/mm3???Hgb - 14.6 Gm/dL???Hct - 43.9 %???MCV - 83.5 femtoliters???MCH - 27.8 pg???MCHC - 33.3 g/dL???Platelet Count - 189 k/mm3???RDW-SD - 39.6 femtoliters???MPV - 12.8 femtoliters???Nucleated RBC (Automated) - 0.0 #/100 WBC'S???Abs. NRBC - 0.0 k/mm3???Abs. Neut - 4.9 k/mm3???Abs. Lymph - 3.4 k/mm3???Abs. Winn - 0.9 k/mm3???Abs. Eo - 0.2 k/mm3???Abs. Baso - 0.1 k/mm3???Neut % - 51.5 %???Lymph % - 35.8 %???Winn % - 9.4 %???Eos % - 2.4 %???Baso % - 0.7 %???Imm Gran - 0.2 %???Abs. Imm Gran - 0.0 k/mm3 Cocaine Urine Screen (09/10/2022) ???Cocaine Metabolite Screen, Urine - NONE DETECTED COVID-19 (Novel Coronavirus), Rapid PCR (09/09/2022) ???COVID-19 by RT-PCR - NEGATIVE Creatinine (09/09/2022) ???Creatinine-Blood - 0.7 mg/dL???Estimated GFR Creatinine - 121 ML/MIN/1.73 M2 Electrolytes (09/09/2022) ???Sodium - 140 mmol/L???Potassium - 4.4 mmol/L???Chloride - 108 mmol/L???Bicarbonate Level - 22 mmol/L???Anion Gap - 10 Glucose Level (09/09/2022) ???Glucose Level - 110 mg/dL HOLD GEL TUBE (09/10/2022) ???Hold Gel Top - SPECIMEN DISCARDED AFTER 1 WEEK HOLD OTHER TUBE (09/09/2022) ???Hold Other - SPECIMEN DISCARDED AFTER 1 WEEK INR (09/09/2022) ???INR - 1.0???Protime (PT) - 10.2 seconds Lipase (09/09/2022) ???Lipase - 54 units/L Hinsdale Level (09/10/2022) ???Hinsdale Level - 0.8 mmol/L Magnesium Level (09/09/2022) ???Magnesium - 1.9 mg/dL Opiate Screen Urine (09/10/2022) ???Opiate Screen, Urine - NONE DETECTED Serum Quantitative (09/09/2022) ? ?Blood - <1 mIU/mL Total Bilirubin (09/09/2022) ???Bilirubin, Total - 0.2 mg/dL Allergies (NKA means No Known Allergies) Geodon??(full body tremors) Thorazine??(Skin rash) Trileptal ibuprofen Problems Active Problems??(6) COVID-19?? COVID-19 virus infection?? Depression?? Major depressive disorder, recurrent?? Severe obesity?? Tobacco dependence?? Education Materials Below is the list of Educational Leaflet Providered with your Discharge Instructions. Valuables and Belongings I fully understand and agree that [facility] accepts no responsibility for all my [...] Review of Valuable and Belonging List: With patient Date for Pt to Sign Valuables/Belongings: 09/09/22 21:42:00 ?? Other Discharge Information ? Pulmonary Rehab Status?? Pulmonary Rehab Discharge Status?? Respiratory Rate: 17 br/min ? Common Emergency Awareness Tips IS [...] are strongly encouraged to quit. Please call [facility] at [phone] or [phone] or log in to [email or web address] for referrals to smoking cessation programs. ?? 770 Suicide & Crisis Lifeline is available 04/09 if you or someone you know needs to find a reason to keep living. By calling 508 you'll be connected to a skilled, trained counselor at a crisis center in your area. INPATIENT DISCHARGE INSTRUCTIONS SIGNATURE PAGE JORGE MORA Location:[facility] Registration Date and Time:09/09/2022 20:17 EDT Primary Care Physician: Katie RILEY, Narda Fonseca, Attending Physician: Fabiana Morley MD, I JORGE MORA, have received the above patient education materials/instructions and have verbalizedunderstanding. If ambulance or transport services are being used I further acknowledge being given a choice of service. ?? If you need to contact me, please call me at this number: . Patient/Actuarial Analyst Name: Patient/Actuarial Analyst Signature: Relationship to Patient: Witness Name/Signature: Date: Patient Care team information Care Team Personnel Name: Natasha Dickey RN Position: [facility] RN Member Role: Primary Care Nurse Name: Genesis Lea RN Position: [facility] RN Member Role: Primary Care Nurse Name: Blaire Solis RN Position: S RN Member Role: Primary Care Nurse Name: Stefani Pinto RN Position: S RN Member Role: Primary Care Nurse Name: Melissa Stapleton RN Position: S RN Member Role: Primary Care Nurse Name: Ligia Stapleton RN Position: S RN Member Role: Primary Care Nurse Name: Narda Wilson NP Position: Reference Physician Member Role: PCP Address: Address: [address] [place] [address] Name: Mariaelena Collazo RN Position: [facility] RN Member Role: Primary Care Nurse Name: Nikki Croft RN Position: [facility] RN Member Role: Primary Care Nurse Name: John Cuellar RN Position: [facility] RN Member Role: Primary Care Nurse Name: Christos Godoy RN Position: [facility] RN Member Role: Primary Care Nurse Name: Angelo MELENDREZ Attending Position: [facility] ED Medicine MD Name: Shaina Dumas RN Position: [facility] ED RN W/OE and Tasks Member Role: Patient Care Provider Care Team Related Persons Name: [employer] Address: [address] [address] Name: YULIYA MORA Address: [address] [place] [address] Name: SUNDAY MORA Address: [place] [address]
--- OUTSIDE RECORDS SUMMARY | 2023-06-07 19:09 | XMS_ITS | Continuity of Care Document ---
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 discussed the??physiology of fight or flight,??the pros and cons??and physiology of??dissociation,??including the effects of??corticotropin releasing factor and cortisol, and normalized this reaction.?? Their response was I took Haldol, ??which reduced the tension, and we discussed??ways of achieving similar resultswithout??a medication. ?? Reviewed??their??[facility]and stays at [facility], [facility],??the [facility],??the [facility],??and other places in [place], [place], and [place].?? 0ffer to the opportunity to??receive care at??[facility],??explain the circumstances,??and the patient chose to accept??the opportunity. ?? With couple days of stability,??the patient is now feeling safe??off constant observation,??and to switch to??enhanced checks.?? The patient also has given up using a wheelchair and is walking on their own.?? The patient had a brief episode of??head-banging last night??with minimal injury,??received IM as needed's with good effect. ?? Patient seen for:??15 minutes Total time spent on patient:??60 minutes Discussed patient in the team meeting, reviewed notes, nursing, and social work input. ?? Mr. Walter??reports feeling??both excited and anxious about going to [facility] today,??believing that it can be a new start.?? We discussed the benefits of teaching hospitals, including having residents??and attendings working to gather??in teams.?? Patient is committed to??improving their emotional intelligence, ability to??communicate??emotions verbally,??and to??avoid emotional expression??in the form of self harming behavior.?? Recognizing that this is a process,??and that slips are??a normal part of recovery,??they plan to??move forward??with an attitude of realistic optimism ??cushioned by??kindness, compassion, and non-judgmentality??towards self. ?? ROS: Depression: Expresses hope and optimism Anxiety: As above Sleeping:??Estimates 9 hours of sleep last night Somatic: No headache or other physical complaints Eating and nutrition: Eating well Impulse control: Generally good Alyse: None Psychotic: None Pain/location/severity: No current pain Rx:??Denies side effects ?? Mental Status Examination?? Appearance:??Looks well,??awake and alert, wearing paper??scrubs Behavior:??Calm, cooperative, polite Speech:??Normal rate and amount, well articulated, insightful Mood:??Good Affect:??Euthymic appearing, stable, smiles appropriately Thought content:??Denies suicidal or violent thinking, denies having any wish for , denies anyplan or intent to harm self Thought process:??Linear and logical Insight and judgement:??Good Gait:??Normal, ambulating without assistance Skin:??Multiple??healed scratches and a dressed wound ?? Reviewed Vital Signs:??Normal, with elevated BMI ?? Objective Assessment and Plan Mr. Walter is a 21-year-old female to male??transgender??person with major depressive disorder,??borderline personality disorder,??gender dysphoria,??and many previous hospitalizations for suicidalityand self harming behavior, especially head-banging and cutting.?? They made??some good progress during the brief hospitalization at [facility],??and are [facility], to the care of Dr. Shaheed Wheeler. ?? Recommend continuing??a strength-based approach;??emphasis on??healthy??recognition, communication,and expression??of emotions; and utilizing??DBT skills. ?? Measurements?? Height: 168 cm (12/21/21) Weight: 138.6 kg (12/16/21) Dry Weight: 138.6 kg (12/16/21) Body Mass Index:??49.11 kg/m2??Critical (12/16/21) ? Vital Signs?? Temperature: 97.4 DegF (12/21/21 08:46:00) Temperature Route: Tympanic (12/21/21 08:46:00) Pulse Rate:??94 bpm??High (12/21/21 08:46:00) Respiratory Rate: 18 br/min (12/21/21 09:38:00) Systolic Blood Pressure: 109 mm Hg (12/21/21 08:46:00) Diastolic Blood Pressure: 72 mm Hg (12/21/21 08:46:00) Blood pressure sites: Arm, right (12/21/21 08:46:00) Mean Arterial Pressure: 84 mm Hg (12/21/21 08:46:00) Pulse Pressure: 37 mm Hg (12/21/21 08:46:00) Oxygen Saturation: 99 % (12/21/21 08:46:00) Mode of Delivery (Oxygen): Room air (12/21/21 08:46:00) ? Pain Scores?? No qualifying data available. ?? Precautions Violence Prevention Plan ? Basic ADLs Ambulatory devices needed: None (12/16/21) ? . Physical Exam Pending Results No Pending Results Home Health Face to Face ^HomeHealthFTF Results Discharge Labs TOXICOLOGY/TDM Wisdom Level 0.7 mmol/L ()?? 12/18/2021 07:55 ? VIROLOGY COVID-19 PCR Specimen Source NASAL ()?? 12/19/2021 09:56 COVID-19 PCR Result NEGATIVE ()?? 12/19/2021 09:56 ? _60 minutes spent on discharge * Drea ESTES, Enrique Mcgill: PERFORM Event Display: Discharge/Transfer Note Hospital Authored Date: Patient reports no longer takes metformin. * Timbo CHAVEZ, Sabine: PERFORM Event Display: Patient Education/Instruction Authored Date: Inpatient Adult Discharge Instructions [facility] [address] [place], [place] [id number] Name: JUAN WALTER : 2000 Visit: 12/16/2021 14:13:00 Current Date: 12/21/2021 11:38 Account: [id number] Inpatient Adult Discharge Instructions We would like [...] and their families. Surveys are administered by [employer] ?? If further treatment with your primary care physician or another doctor is recommended, it is important for you to keep the appointment. Call your primary care physician or return to the Emergency Department immediately if your condition worsens, fails to improve, or new symptoms develop. If you need to find a doctor, you can call [facility] for a referral at [phone] or toll free at [phone] ([phone]) or log in to [email or web address].. ?? You can view and manage your care through the patient portal or by using a health care sharonda of your choosing. [employer] is a website that allows you to securely view your medical information including your hospital discharge summary, office visit summaries, medications and follow-up visits. You can also request appointments, renew medications, and request access to your medical information using a health care sharonda of your choosing, or just ask a question. You can enroll at [email or web address] or register during your next office visit. You have been discharged from [facility], Patient Care Unit: MHU. If you have any questions regarding these instructions after you leave, please call us and we will be happy to assist you. [facility] Your Care Team Attending Physician Enrique Shepard MD Discharging Providers Enrique Shepard MD Reason for Admission I was having suicidal thoughts Your Diagnosis Major depressive disorder, recurrent Borderline personality disorder Gender dysphoria Tests Performed Below is a partial list of the tests performed during your hospitalization. You may have had other tests and procedures not included in this list. Please discuss all test results with your provider. COVID-19 (2019 Novel Coronavirus) PCR Wisdom Level CT Head/Brain W/O Contrast Primary Care Provider Narda Wilson NP Advance Directive Health Care Proxy on File No Patient refuses to discuss No qualifying data available. Discharge Vitals Temperature: 97.4 DegF Height: 168 cm Pulse Rate:??94 bpm??High Weight: 138.6 kg Respiratory Rate: 18 br/min Body Mass Index:??49.11 kg/m2??Critical Systolic Blood Pressure: 109 mm Hg Body surface area: 2.54 Diastolic Blood Pressure: 72 mm Hg ?? Oxygen Saturation: 99 % ?? Studies Pending All tests and labs ordered during this hospital stay have been completed unless listed below. Please discuss all pending results with your provider listed above in these instructions. ?? No incomplete studies found What to do next Instructions From Your Doctor Discharge Orders Discharge Medications JUAN WALTER :2000 Visit Date:12/16/2021 Medications: Please continue your medications until treatment is completed or stopped by your provider. Medications not listed below should be discontinued. Discuss any questions related to medications with your provider. What How Much When Instructions Next Dose Unchanged Aripiprazole (ARIPiprazole 10 mg oral tablet) 2 tab(s) Oral Daily 12/22 9am Unchanged Fluoxetine (PROzac 20 mg oral capsule) 2 capsule Oral Daily 12/22 9am Unchanged Fluticasone Nasal (Flonase) Nares, Both Twice a day as needed for Congestion Per Instructions PRN Unchanged Gabapentin (gabapentin 300 mg oral capsule) 300 Milligram Oral Twice a day Afternoon and HS ?? 11 3pm Unchanged Gabapentin (gabapentin 300 mg oral capsule) 600 Milligram Oral Daily in the morning 12/22 9am Unchanged Haloperidol (haloperidol 5 mg oral tablet) 1 tab(s) Oral Every 8 hours as needed for Agitation Per Instructions PRN Unchanged Wisdom (lithium 600 mg oral capsule) 600 Milligram Oral Twice a day 12/21 9pm Unchanged Metformin (metFORMIN 500 mg oral tablet) 1 Each Oral Twice a day 12/21 9pm Unchanged Prazosin (prazosin 2 mg oral capsule) 1 capsule Oral Daily at Bedtime 12/21 9pm Test Results Below is a partial list of the most recent Laboratory test results done prior to this discharge. You may have had other tests and procedures not included in this list. Please discuss all test resultswith your provider. COVID-19 (2019 Novel Coronavirus) PCR (12/19/2021) ???COVID-19 PCR Specimen Source - NASAL???COVID-19 PCR Result - NEGATIVE Wisdom Level (12/18/2021) ???Wisdom Level - 0.7 mmol/L Immunizations This Visit Given Vaccine Dateinfluenza virus vaccine, inactivated 12/17/2021 Allergies (NKA means No Known Allergies) Geodon??(full body tremors) Thorazine??(Skin rash) Trileptal ibuprofen Problems Active Problems??(6) COVID-19?? COVID-19 virus infection?? Depression?? Major depressive disorder, recurrent?? Severe obesity?? Tobacco dependence?? Education Materials Below is the list of Educational Leaflet Providered with your Discharge Instructions. Valuables and Belongings I fully understand and agree that [facility] accepts no responsibility for all my [...] 0 Date for Pt to Sign Valuables/Belongings: 12/16/21 14:14:00 ?? Other Discharge Information ? Pulmonary Rehab Status?? Pulmonary Rehab Discharge Status?? Respiratory Rate: 18 br/min ?? Psychiatric Discharge Plan?? Discharge Plan Psych?? Clinics?? Other Agency?? Crisis Services?? Level of Care at Discharge: Psychiatric Facility/Unit ([facility]) Clinic Contact: [address] [address](p) [phone](f) [phone] Other Agency Contact: [address] [place] [address], [place] [address](p): [phone](f): [phone] Psychiatric Crisis Services: For your area are available 24 hours every day, by calling: Discharge Plan Additional Information: Allyson is transferring to [facility] for ongoing inpatientlevel of care. 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 Other Service Start: Please coordinate with Allyson's half-way for continuity of care and eventual discharge planning. Crisis Services: [facility] [phone] Mode of Transportation: Ambulance ? Crisis Service Instructions: Please use as needed when in the community. ?? Common Emergency Awareness Tips IS IT A [...] are strongly encouraged to quit. Please call [facility] at [phone] or [phone] ([phone]) or log in to [email or web address] for referrals to smoking cessation programs. ?? The National Suicide Prevention Hotline is available 04/09 if you or someone you know needs to find a reason to keep living. By calling 6-503-337-[employer] (6824) you'll be connected to a skilled, trained counselor at a crisis center in your area. INPATIENT DISCHARGE INSTRUCTIONS SIGNATURE GIDEON JUAN WALTER Location:[facility] Registration Date and Time:12/16/2021 14:13 EDT Primary Care Physician: Narda Wilson NP, I JUAN WALTER, have received the above patient education materials/instructions and have verbalizedunderstanding. If ambulance or transport services are being used I further acknowledge being given a choice of service. ?? If you need to contact me, please call me at this number: . Patient/Manager Business Intelligence Name: Patient/Manager Business Intelligence Signature: Relationship to Patient: Witness Name/Signature: Date: * Azucena Morejon: PERFORM Event Display: Discharge/Transfer Note Hospital Authored Date: [id number] Psychiatric Discharge Plan Entered On: 12/19/2021 12:10 EST Performed On: 12/19/2021 12:07 EST by Azucena Morejon Discharge Plan Level of Care at Discharge : Psychiatric Facility/Unit ([facility]) Discharge Plan Additional Information : Allyson is transferring to [facility] for ongoing inpatient level of care. 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 Contact : [address] [place] [address] (p) [phone] (f) [phone] Azucena Morejon - 12/20/2021 16:31 EST Other Other Service Start : Please coordinate with Allyson's half-way for continuity of care and eventualdischarge planning. Other Agency Contact : [address] [place] [address] Street, CHANO Bustos (p): [phone] (f): [phone] Azucena Morejon - 12/20/2021 16:31 EST Crisis Services Psychiatric Crisis Services : For your area are available 24 hours every day, by calling: Crisis Services : [facility] [phone] Azucena Morejon - 12/19/2021 12:07 EST Crisis Service Instructions : Please use as needed when in the community. Azucena Morejon - 12/20/2021 16:[address] Head WO contrast * [facility] , CIS S: TRANSCRIBE Marilin Lozano MD O: VERIFY Event Display: Result: Authored Date: CT Head/Brain W/O Contrast INDICATION: Reason: Other:; Intentional head banging, abraising bleeding above forehead inside hairline; Clinical Question(s): Subarachnoid Hemorrhage TECHNIQUE: Noncontrast head CT using axial technique and reconstructed in axial and coronal planes.Iterative reconstruction techniques are used to optimize dose and image quality. CTDIvol Head: 47.00 mGy, DLP Head: 773 mGy*cm. COMPARISON: 11/07/2021. FINDINGS: Client Services Administrator view findings, lines and tubes: None. BRAIN AND EXTRA-AXIAL SPACES: No parenchymal hemorrhage, midline shift, or mass effect. Cornelius-white matter differentiation is wellpreserved. No acute infarct. Ventricles, sulci, and basilar cisterns are normal. No white matter lesions. No subarachnoid hemorrhage. No subdural or epidural collection. CALVARIUM, SKULL BASE, AND SOFT TISSUES: No fractures or suspicious bony lesions. The paranasal sinuses are air-filled. There are patchy areas of soft tissue attenuation and mastoidair cells. Visualized orbits and globes are intact. The extracranial soft tissues are unremarkable. IMPRESSION: No acute intracranial pathology. There are patchy areas of soft tissue attenuation and mastoid air cells. Clinical correlation is recommended. WSN: [id number] Ordering Physician: Ac Castellon Dictated By: Marilin Lozano MD Dictated Date/Time: 12/18/21 9:14 am Reviewed By: Marilin Lozano MD Signed By: Marilin Loazno MD Signed Date/Time: 12/18/21 9:14 am Transcribed By: DEJON Transcribed Date/Time: 12/18/21 5:37 am Patient Care team information Care Team Personnel Name: Natasha Dickey RN Position: [facility] RN Member Role: Primary Care Nurse Name: Melissa Stapleton RN Position: [facility] RN Member Role: Primary Care Nurse Name: Martin Martinez RN Position: [facility] RN Member Role: Primary Care Nurse Name: Narda Wilson NP Position: Reference Physician Member Role: PCP Address: Address: [address] [place] [address] Name: Giana Huntley RN Position: [facility] RN Member Role: Primary Care Nurse Name: John Cuellar RN Position: [facility] RN Member Role: Primary Care Nurse Name: Glenda Moody MD Position: [facility] ED Medicine MD Member Role: ED Attending Physician Address: Address: [address] [place] [address] [place] [address] Name: Peterson Armstrong RN Position: [facility] ED RN W/OE and Tasks Member Role: Patient Care Provider Care Team Related Persons Name: YULIYA WALTER Address: [address] [address] Name: TRINH WALTERE Address: [place] [address]
--- OUTSIDE RECORDS SUMMARY | 2023-06-07 19:09 | XMS_ITS | Continuity of Care Document ---
Author Organization [facility] Address [address] [place] [address]- Care Team Providers Care Mutuel Department Manager Name Role Phone Bela Dumont MD Primary Care Physician Encounter [facility] Date(s): 12/22/19 - 12/22/[address] [address]- [phone] Discharge Disposition: A-D/C Home Attending Physician: Misty Cutler MD Admitting Physician: Misty Cutler MD Referring Physician: Not on Staff, Referring MD Allergies, Adverse Reactions, Alerts Substance Reaction Severity Status NKA Active Immunizations Given and Recorded Vaccine Date Status Refusal Reason tetanus/diphtheria/pertussis, acel(Tdap) 12/22/19 Given Medications Ativan 1 mg oral tablet 1 tablet = 1 mg, By Mouth, 2 times a day, PRN as needed for anxiety, 0 Refills, Maintenance, 05/02/19 12:15:00 EDT, Tablet Start Date: 05/02/19 Status: Ordered ChlorproMAZINE See Instructions, 100 mg Daily/ PRN, 0 Refills, Maintenance, 11/22/19 11:23:00 EDT Start Date: 11/22/19 Status: Ordered DiphenhydrAMINE = 50 mg, Daily at bedtime, PRN at bedtime, 0 Refills, Maintenance, 11/22/19 11:27:00 EDT Start Date: 11/22/19 Status: Ordered ibuprofen 400 mg oral tablet See Instructions, 1 tablet By Mouth Every 6 hours/pRN for pain, Refills 0, Maintenance, 11/22/19 11:28:00 EDT, Instructions Replace Required Details Start Date: 11/22/19 Status: Ordered Lorazepam See Instructions, 2 mg at 14:00 daily, 0 Refills, Maintenance, 11/22/19 11:22:00 EDT Start Date: 11/22/19 Status: Ordered prazosin 5 mg oral capsule 5 mg, 1, capsule, By Mouth, Daily at bedtime, Refills 0, Maintenance, 11/22/19 11:21:00 EDT Start Date: 11/22/19 Status: Ordered traZODone 100 mg oral tablet 100 mg, 1, tablet, By Mouth, Daily at bedtime, # 30 tablet, Refills 0, Tot. Refills 0, Maintenance,04/30/19 13:49:00 EDT, Route to Pharmacy Electronically, [facility]/pharmacy #[id number], 175, cm, 04/30/19 12:12:00 EDT, Height, 107.27, kg, 03/18/19 12:26:00 EST,... Start Date: 04/30/19 Status: Ordered Trileptal 300 mg oral tablet [...] [Reference Range]: 1 2 Height 168 cm (12/22/19 3:30 PM) 168 cm (12/22/19 2:19 PM) Weight 122.7 kg (12/22/19 3:30 PM) 122.7 kg (12/22/19 2:19 PM) Oxygen Saturation [94-100 %] 98 % (12/22/19 2:19 PM) Pulse Rate [55-90 bpm] 88 bpm (12/22/19 2:19 PM) Body Mass Index [18.5-24.99] 43.47 *>HHI* (12/22/19 2:19 PM) Blood Pressure [90-138/55-84 mm Hg] 133/ 90mm Hg (12/22/19 2:19 PM) Respiratory Rate [16-30 br/min] 20 br/mi n (12/22/19 2:19 PM) Temperature [96.8-100.4 DegF] 99.3 DegF (12/22/19 2:19 PM) Mode of Delivery (Oxygen) Room air (12/22/19 2:19 PM) Blood pressure sites Arm, left (12/22/19 2:19 PM) Temperature Route Oral (12/22/19 2:19 PM) Dry Weight 122.7 kg (12/22/19 3:30 PM) 122.7 kg (12/22/19 2:19 PM) Weight Obtained Via Patient/family state d (12/22/19 2:19 PM) Dry Weight Obtained Via Patient/family s tated (12/22/19 2:19 PM) Social History Social History Type Response Smoking Status 10 or more cigarette s (1/2 pack or more)/day in last 30 days entered on: 09/07/18 Sex
--- OUTSIDE RECORDS SUMMARY | 2023-06-07 19:09 | XMS_ITS | Continuity of Care Document ---
Author Organization [facility] Address [address] [place] [address]- Care Team Providers Care Gas Meter Checker Name Role Phone Yovanny RILEY, Nikki Primary Care Physician [phone] [place] [facility] [place] 05/06/23 - 05/06/[address] [address]- Discharge Disposition: A-D/C Home Attending Physician: Martin Villatoro MD Admitting Physician: [...] 0 Refills, Maintenance, 04/03/23 8:17:00 EST, Tablet, [id number], Partial fill upon patient request if the prescription is for a schedule II opioid drug., 167, cm, 04/02/23 20:... Start Date: 04/03/23 Status: Ordered duloxetine 60 mg oral enteric coated capsule = 60 mg, By Mouth, Daily, # 30 capsule, 0 Refills, Maintenance, 04/03/23 8:17:00 EST, Capsule, [id number], Partial fill upon patient request if the prescription is for a schedule II opioid drug., 167, cm, 04/02/23 20:16:00 EST,... Start Date: 04/03/23 Status: Ordered haloperidol 5 mg oral tablet 5 mg, By Mouth, Daily, # 30 tablet, Refills 0, Tot. Refills 0, Maintenance, 04/03/23 8:19:00 EST, [id number], Partial fill upon patient request if the prescription is for a schedule II opioid d... Start Date: 04/03/23 Status: Ordered haloperidol 5 mg oral tablet 5 mg, By Mouth, 2 times a day, PRN, # 60 tablet, Refills 0, Tot. Refills 0, Maintenance, Anxiety, 04/03/23 8:20:00 EST, [id number], Partial fill upon patient request if the [...] Refills, Maintenance, 04/03/23 8:17:00 EST, ER Tablet, [facility]-[id number], Partial fill upon patient request if the [...] 04/03/23 8:18:00 EST, Route to Pharmacy Electronically, [id number], Partial fill upon patient request if the prescription is for a schedule... Start Date: 04/03/23 Status: Ordered topiramate 50 mg oral tablet = 150 mg, By Mouth, Daily at bedtime, # 90 tablet, 0 Refills, Maintenance, 04/03/23 8:18:00 EST, Tablet, [id number], Partial fill upon patient request if the prescription is for a schedule II opioid drug., 167, cm, 04/02/23 20:... Start Date: 04/03/23 Status: Ordered traZODone 50 mg oral tablet 50 mg, By Mouth, Daily at bedtime, PRN, # 30 tablet, Refills 0, Tot. Refills 0, Maintenance, Sleep,04/03/23 8:19:00 EST, Route to Pharmacy Electronically, [id number], Partialfill upon patient request if the prescription [...] Exam Date Time Procedure Performing Provider Status 05/06/23 5:36 PM Chest 2 Views Frontal and Lat Gabriella Vang; Auth (Verified) Notes: (Chest 2 Views Frontal and Lat) Reason For Exam: Shortness of Breath, Fever;Other: RESULT: Chest 2 Views Frontal and Lat Chest 2 Views Frontal and Lat Hx of Present Illness: Pt has had increasing CP with activity and coughing. Pt is 3 weeks post covid.; Reason: Other:; Shortness of Breath, Fever; Clinical Question(s): Pneumonia COMPARISON: None. FINDINGS: LINES AND TUBES: None. LUNGS AND PLEURA: Clear lungs. Normal pulmonary vascularity. No pleural effusion. No pneumothorax. HEART, MEDIASTINUM AND JOAQUIN: Heart is normal in size. Normal mediastinal and hilar contour. BONES AND SOFT TISSUES: No acute abnormality. IMPRESSION: No acute abnormality. WSN: [id number] Ordering Physician: Martin Villatoro Dictated By: Javier Blackwell MD Dictated Date/Time: 05/06/23 5:39 pm Reviewed By: Javier Blackwell MD Signed By: Javier Blackwell MD Signed Date/Time: 05/06/23 5:39 pm Transcribed By: DEJON Transcribed Date/Time: 05/06/23 5:39 pm Vital Signs Most recent to oldest [Reference Range]: 1 2 3 Height 167 cm (05/06/23 8:05 PM) 167 cm (05/06/23 4:44 PM) 167 cm (05/06/23 4:13 PM) Weight 143 kg (05/06/23 8:05 PM) 143 kg (05/06/23 4:44 PM) 143 kg (05/06/23 4:13 PM) Oxygen Saturation [94-100 %] 98 % (05/06/23 8:05 PM) 98 % (05/06/23 4:44 PM) Pulse Rate [55-90 bpm] 109 bpm *H* (05/06/23 8:05 PM) 107 bpm *H* (05/06/23 4:44 PM) Body Mass Index [18.5-24.99 kg/m2] 51.27 kg/m2 *>HHI* (05/06/23 8:05 PM) 51.27 kg/m2 *>HHI* (05/06/23 4:44 PM) Blood Pressure [90-138/55-84 mm Hg] 121/83mm Hg (05/06/23 8:05 PM) 105/67mm Hg (05/06/23 4:44 PM) Respiratory Rate [16-30 br/min] 16 br/min (05/06/23 8:05 PM) 18 br/min (05/06/23 4:44 PM) Temperature [96.8-100.4 DegF] 97.7 DegF (05/06/23 4:44 PM) Mode of Delivery (Oxygen) Room air (05/06/23 8:05 PM) Room air (05/06/23 4:44 PM) Blood pressure sites Arm, right (05/06/23 8:05 PM) Arm, left (05/06/23 4:44 PM) Temperature Route Temporal (05/06/23 4:44 PM) Dry Weight 143 kg (05/06/23 8:05 PM) 143 kg (05/06/23 4:44 PM) 143 kg (05/06/23 4:13 PM) Social History Social History Type Response Smoking Status 10 or more cigarette s (1/2 pack or more)/day in last 30 days entered on: 09/07/18 Sex Patient Care team information Care Team Personnel Name: Garcia Baez RN Position: [facility] RN Member Role: Primary Care Nurse Name: Diamond Mancini RN Position: [facility] RN Member Role: Primary Care Nurse Name: Leah Almonte RN Position: [facility] RN Member Role: Primary Care Nurse Name: Natasha Dickey RN Position: [facility] RN Member Role: Primary Care Nurse Name: Kellee Garvin RN Position: [facility] RN Member Role: Primary Care Nurse Name: Maegan Diaz RN Position: [facility] RN Member Role: Primary Care Nurse Name: Genesis Lea RN Position: [facility] RN Member Role: Primary Care Nurse Name: Nikki Hairston NP Position: [facility] PCO Associate Professional Member Role: PCP Address: Address: [address] [place] [address] Name: Alejandra Gilbert RN Position: [facility] RN Member Role: Primary Care Nurse Name: Zara Colon RN Position: [facility] RN Supv Member Role: Primary Care Nurse Name: Stefani Pinto RN Position: [facility] RN Member Role: Primary Care Nurse Name: Araceli Quevedo RN Position: [facility] RN Member Role: Primary Care Nurse Name: Fatoumata Loyd RN Position: [facility] RN Member Role: Primary Care Nurse Name: Melissa Stapleton RN Position: [facility] RN Member Role: Primary Care Nurse Name: Ligia Stapleton RN Position: [facility] RN Member Role: Primary Care Nurse Name: Melissa Davison RN Position: [facility] RN Member Role: Primary Care Nurse Name: Triniadd Ordonez RN Position: [facility] RN Member Role: Primary Care Nurse Name: Mraiaelena Collazo RN Position: [facility] RN Member Role: Primary Care Nurse Name: Beatrice Pisano RN Position: [facility] RN Member Role: Primary Care Nurse Name: Shankar Man Position: [facility] RN Member Role: Primary Care Nurse Name: Nikki Croft RN Position: [facility] RN Member Role: Primary Care Nurse Name: Jonh Cuellar RN Position: [facility] RN Member Role: Primary Care Nurse Name: Christos Godoy RN Position: [facility] RN Member Role: Primary Care Nurse Care Team Related Persons Name: [facility] [employer] [employer] Address: [address] [place] [address] Name: YULIYA MORA Address: home [address] [place] [address] Name: SUNDAY MORA Address: [place] [address]
--- OUTSIDE RECORDS SUMMARY | 2023-06-07 19:09 | XMS_ITS | Continuity of Care Document ---
Author Organization [facility] Address [address] [place] [address]- Care Team Providers Care Winch Runner Name Role Phone Katie RILEY, Narda Fonseca Primary Care Physici Encounter [facility] [place] Date(s): 11/10/20 - 11/16/20 [facility] [address] [place] [address]- Encounter Diagnosis Depression(Final) - 11/07/20 Discharge Disposition: A-D/C Home Attending Physician: Isma Terry MD Admitting Physician: Laura ESTES, Jim Post Referring Physician: Not on Staff, Referring MD Allergies, Adverse Reactions, Alerts Substance Reaction Severity Status Trileptal Active Geodon full body tremors Active Immunizations Given and Recorded Vaccine Date Status Refusal Reason influenza virus vaccine, inactivated 11/11/20 Give n tetanus/diphtheria/pertussis, acel(Tdap) 12/22/19 Given Medications chlorproMAZINE 100 mg oral tablet = 100 mg, By Mouth, 3 times a day, PRN Agitation, # 90 tablet, 1 Refills, Maintenance, 11/15/20 15:51:00 EDT, Tablet, [id number], Partial fill upon patient request if the prescription is for a schedule II opioid drug., 168, cm,... Start Date: 11/15/20 Status: Ordered chlorproMAZINE 50 mg oral tablet = 50 mg, By Mouth, 3 times a day, # 90 tablet, 1 Refills, Maintenance, 11/15/20 15:50:00 EDT, Tablet, [facility]-[id number], Partial fill upon patient request if the prescription is for a schedule II opioid drug., 168, cm, 11/15/20 9:15:0... Start Date: 11/15/20 Status: Ordered hydrOXYzine pamoate 50 mg oral capsule = 50 mg, By Mouth, Every 4 hours, PRN Anxiety, # 90 capsule, 1 Refills, Maintenance, 11/15/20 15:51:00 EDT, Capsule, [facility]-[id number], Partial fill upon patient request if the prescription is for a schedule II opioid drug., 168, cm,... Start Date: 11/15/20 Status: Ordered lithium 300 mg oral tablet, extended release 2 tablet = 600 mg, By Mouth, 2 times a day, # 120 tablet, 1 Refills, Maintenance, 11/15/20 15:50:00EDT, ER Tablet, [facility]- [id number], Partial fill upon patient request if the prescription is for a schedule II opioid drug., 168, cm, 1... Start Date: 11/15/20 Status: Ordered prazosin 1 mg oral capsule 2 mg, Capsule, By Mouth, 11/15/20 21:00:00 EDT Start Date: 11/15/20 Stop Date: 11/15/20 Status: Completed prazosin 2 mg oral capsule 1 capsule = 2 mg, By Mouth, Daily at bedtime, takes with 5 mg prazosin, # 30 capsule, 1 Refills, Maintenance, 11/15/20 15:50:00 EDT, Capsule, [facility]-[id number], Partial fill upon patient request if the prescription is for a schedule I... Start Date: 11/15/20 Stop Date: 01/14/21 Status: Ordered prazosin 5 mg oral capsule 5 mg, 1, capsule, By Mouth, Daily at bedtime, # 30 capsule, Refills 1, Tot. Refills 1, Maintenance,11/15/20 15:50:00 EDT, Route to Pharmacy Electronically, [facility]-[id number], Partial fill upon patient request if the prescription is f... Start Date: 11/15/20 Stop Date: 01/14/21 Status: Ordered prazosin 5 mg oral capsule 5 mg, Capsule, By Mouth, 11/15/20 21:00:00 EDT Start Date: 11/15/20 Stop Date: 11/15/20 Status: Completed PROzac 40 mg oral capsule 1 capsule = 40 mg, By Mouth, Daily, # 30 capsule, 1 Refills, Maintenance, 11/15/20 15:50:00 EDT, Capsule, [facility]-[id number], Partial fill upon patient request if the prescription is for a schedule II opioid drug., 168, cm, 11/15/20 9:... Start Date: 11/15/20 Status: Ordered traZODone 150 mg oral tablet 1 tablet = 150 mg, By Mouth, Daily at bedtime, # 30 tablet, 0 Refills, Maintenance, 11/15/20 15:50:00 EDT, Tablet, [facility]-[id number], Partial fill upon patient request if the prescription is for a schedule II opioid drug., 168, cm, 10... Start Date: 11/15/20 Status: Ordered Problem List Condition Effective Dates Status Health Status Inform ant Depression(Confirmed) Active Tobacco dependence(Confirmed) Active Vital Signs Most recent to oldest [Reference Range]: 1 2 3 Height 168 cm (11/16/20 8:59 AM) 168 cm (11/15/20 7:46 PM) 168 cm (11/15/20 9:15 AM) Weight 141.4 kg (11/10/20 2:02 PM) 135 kg (11/09/20 1:01 AM) 135 kg (11/08/20 1:39 PM) Oxygen Saturation [94-100 %] 98 % (11/16/20 8:59 AM) 100 % (11/15/20 7:46 PM) 95 % (11/15/20 9:15 AM) Pulse Rate [55-90 bpm] 104 bpm *H* (11/16/20 8:59 AM) 99 bpm *H* (11/15/20 7:46 PM) 105 bpm *H* (11/15/20 9:15 AM) Body Mass Index [18.5-24.99] 50.1 *>HHI* (11/10/20 2:02 PM) 47.83 *>HHI* (11/09/20 1:01 AM) 47.83 *>HHI* (11/08/20 1:39 PM) Blood Pressure [90-138/55-84 mm Hg] 112/54mm Hg (11/16/20 8:59 AM) 94/60mm Hg (11/15/20 8:36 PM) 94/60mm Hg (11/15/20 8:36 PM) Respiratory Rate [16-30 br/min] 18 br/min (11/16/20 9:06 AM) 18 br/min (11/16/20 8:59 AM) 18 br/min (11/15/20 7:46 PM) Temperature [96.8-100.4 DegF] 96.8 DegF (11/16/20 8:59 AM) 97.5 DegF (11/15/20 7:46 PM) 96.8 DegF (11/15/20 9:15 AM) Mode of Delivery (Oxygen) Room air (11/15/20 9:15 AM) Room air (11/14/20 8:20 PM) Room air (11/14/20 9:35 AM) Blood pressure sites Arm, left (11/15/20 7:46 PM) Arm, left (11/15/20 9:15 AM) Arm, left (11/14/20 8:20 PM) Temperature Route Core (11/16/20 8:59 AM) Temporal (11/15/20 7:46 PM) Temporal (11/15/20 9:15 AM) Dry Weight 141.4 kg (11/10/20 2:02 PM) 135 kg (11/09/20 1:01 AM) 135 kg (11/08/20 1:39 PM) Sensory deficits None (11/10/20 2:02 PM) Social History Social History Type Response Smoking Status 10 or more cigarette s (1/2 pack or more)/day in last 30 days entered on: 09/07/18 Sex
--- OUTSIDE RECORDS SUMMARY | 2023-06-07 19:09 | XMS_ITS | Continuity of Care Document ---
Author Organization [facility] Address [address] [place] [address]- Care Team Providers Care Barrel Scraper Name Role Phone Katie RILEY, Narda Marian Primary Care Physici an [place] [facility] [place] Date(s[place] 02/20/22 - 02/21/[address] [address]- Discharge Disposition: A-D/C Home Attending Physician: Parminder [...] (COVID-19) mRNA BNT-162b2 vac 03/02/20 Recorded Medications acetaminophen 325 mg oral tablet 650 mg, Tablet, By Mouth, Every 4 hours, PRN for Pain , Moderate, Routine, 02/20/22 22:43:00 EST Start Date: 02/20/22 Stop Date: 02/21/22 Status: Discontinued ammonium lactate 10% topical cream See Instructions, Topically 2 times a day to feet, # 42 Gm, 0 Refills, Maintenance, 01/24/22 9:26:00 EST, Cream, [facility]-, Partial fill upon patient request if the prescription is for a schedule II opioid drug., Topically 2... Start Date: 01/24/22 Status: Ordered ARIPiprazole 10 mg oral tablet 20 mg, 2, tablet, By Mouth, Daily, # 60 tablet, Refills 0, Tot. Refills 0, Maintenance, 01/24/22 9:25:00 EST, Route to Pharmacy Electronically, [facility], Partial fill upon patient request if the prescription is for a schedul... Start Date: 01/24/22 Status: Ordered benztropine 1 mg oral tablet 1 mg, 1, tablet, By Mouth, Every 6 hours, PRN, PRN for extrapyramidal symptoms, # 60 tablet, Refills 0, Tot. Refills 0, Maintenance, Other, 01/24/22 9:26:00 EST, Route to Pharmacy Electronically, [facility], Partial fill upon... Start Date: 01/24/22 Status: Ordered diphenhydrAMINE 25 mg oral tablet 2 tablet = 50 mg, By Mouth, 3 times a day, PRN Agitation, to be given with haldol only, # 60 tablet, 0 Refills, Maintenance, 01/24/22 9:26:00 EST, Tablet, [facility]-, Partialfill upon patient request if the prescription is fo... Start Date: 01/24/22 Status: Ordered gabapentin 300 mg oral capsule 600 mg, Capsule, By Mouth, 02/20/22 21:00:00 EST Start Date: 02/20/22 Stop Date: 02/20/22 Status: Completed gabapentin 300 mg oral capsule 600 mg, 2, capsule, By Mouth, 3 times a day, # 180 capsule, Refills 0, Tot. Refills 0, Maintenance,01/24/22 9:26:00 EST, Route to Pharmacy Electronically, [facility], Partial fill upon patient request if the prescription is f... Start Date: 01/24/22 Status: Ordered gabapentin 300 mg oral capsule 600 mg, Capsule, By Mouth, 02/21/22 9:00:00 EST Start Date: 02/21/22 Stop Date: 02/21/22 Status: Completed haloperidol 5 mg oral tablet 5 mg, 1, tablet, By Mouth, Every 4 hours, PRN, to be given with diphenhydramine, # 60 tablet, Refills 0, Tot. Refills 0, Maintenance, Agitation, 01/24/22 9:26:00 EST, Route to Pharmacy Electronically, [facility]-, Partial fill... Start Date: 01/24/22 Status: Ordered hydrOXYzine pamoate 25 mg oral capsule 2 capsule = 50 mg, By Mouth, 4 times a day, PRN Anxiety, # 90 capsule, 0 Refills, Maintenance, 01/24/22 9:26:00 EST, Capsule, [facility], Partial fill upon patient request ifthe prescription is for a schedule II opioid drug.,... Start Date: 01/24/22 Status: Ordered lidocaine 5% topical ointment See Instructions, Topically 3 times a day to affected areas for pain, # 3 Gm, 0 Refills, Acute 02/24/22 8:00:00 EST, 02/23/22 8:00:00 EST, Ointment, [facility], Partial fill upon patient request if the prescription is for a sc... Start Date: 02/23/22 Stop Date: 02/24/22 Status: Ordered lithium 600 mg oral capsule = 600 mg, By Mouth, 2 times a day, # 60 capsule, 0 Refills, Maintenance, 01/24/22 9:27:00 EST, Capsule, [facility], Partial fill upon patient request if the prescription is for a schedule II opioid drug., 168, cm, 01/24/22 7:2... Start Date: 01/24/22 Status: Ordered methylphenidate 54 mg oral tablet, extended release 1 tablet = 54 mg, By Mouth, Daily, # 30 tablet, 0 Refills, Maintenance, 01/24/22 9:27:00 EST, ER Tablet, [facility], Partial fill upon patient request if the prescription is for a schedule II opioid drug., 168, cm, 01/24/22 7:... Start Date: 01/24/22 Status: Ordered ondansetron 4 mg oral tablet, disintegrating = 4 mg, By Mouth, Every 6 hours, PRN Nausea & Vomiting, # 30 capsule, 0 Refills, Maintenance, 01/24/22 9:27:00 EST, Tablet, [facility]-, Partial fill upon patient request if the prescription is for a schedule II opioid drug., 1... Start Date: 01/24/22 Status: Ordered prazosin 1 mg oral capsule 2 mg, Capsule, By Mouth, 02/20/22 21:00:00 EST Start Date: 02/20/22 Stop Date: 02/20/22 Status: Completed prazosin 2 mg oral capsule 1 capsule = 2 mg, By Mouth, Daily at bedtime, # 30 capsule, 0 Refills, Maintenance, 01/24/22 9:27:00 EST, Capsule, [facility], Partial fill upon patient request if the prescription is for a schedule II opioid drug., 168, cm, 1... Start Date: 01/24/22 Status: Ordered PROzac 20 mg oral capsule 40 mg, 2, capsule, By Mouth, Daily, # 60 capsule, Refills 0, Tot. Refills 0, Maintenance, 01/24/22 9:26:00 EST, Route to Pharmacy Electronically, [facility], Partial fill upon patient request if the [...] 1 2 3 4 Height 168 cm (02/20/22 1:33 PM) Weight 136 kg (02/20/22 1:33 PM) Oxygen Saturation [94-100 %] 97 % (02/21/22 9:10 AM) 100 % (02/21/22 2:00 AM) 100 % (02/20/22 6:00 PM) Pulse Rate [55-90 bpm] 89 bpm (02/21/22 9:10 AM) 78 bpm (02/21/22 2:00 AM) 76 bpm (02/20/22 6:00 PM) Blood Pressure [90-138/55-84 mm Hg] 116/67mm Hg (02/21/22 9:10 AM) 130/76mm Hg (02/21/22 2:00 AM) 125/67mm Hg (02/20/22 10:22 PM) Respiratory Rate [16-30 br/min] 18 br/min (02/21/22 9:10 AM) 16 br/min (02/21/22 2:00 AM) 16 br/min (02/20/22 11:22 PM) 16 br/min (02/20/22 11:22 PM) Temperature [96.8-100.4 DegF] 98.0 DegF (02/21/22 9:10 AM) 99.0 DegF (02/21/22 2:00 AM) 97.9 DegF (02/20/22 6:00 PM) Mode of Delivery (Oxygen) Room air (02/21/22 9:10 AM) Room air (02/21/22 2:00 AM) Room air (02/20/22 6:00 PM) Blood pressure sites Arm, left (02/21/22 2:00 AM) Arm, left (02/20/22 6:00 PM) Arm, left (02/20/22 12:00 PM) Temperature Route Oral (02/21/22 9:10 AM) Oral (02/21/22 2:00 AM) Oral (02/20/22 6:00 PM) Dry Weight 136 kg (02/20/22 1:33 PM) Social History Social History Type Response Smoking Status 10 or more cigarette s (1/2 pack or more)/day in last 30 days entered on: 12/11/20 Sex Hospital Progress note * Yohannes García RN: SIGN, VERIFY, SIGN, MODIFY, PERFORM Event Display: Progress Note Hospital Authored Date: Patient: JORGE MORA Age: 21 years Sex: Female : 2000 Associated Diagnoses: None Author: Yohannes García RN Findings Narrative/Incidental Pt found to be attempting to creating ligature during the , quickly intervened upon and bra removed from person. Pt supported and engaged with aggressively to de-escalate. Pt obviously being triggered by loud and inappropriate pt in hallway, which they endorsed when asked if this was the triggering issue. Pt was already in placed in private room at this time. Discussed potential coping mechanisms to de-escalate from SIBs - pt agreeable with PRN for agitation (Haldol and Benadryl), which was given. Cup of ice provided for sensory integration coping skill utilization as they requested - pt reporting increased dissociative symptoms. Other sensory materials provided and pt brightened when offered. Upgraded to 1:1 status for safety and increased surveillance. Pt currently utilizing sensory materials safely and was able to contract for safety moving forward with myself. . * Yohannes García RN: PERFORM Event Display: Progress Note Hospital Authored Date: Reported incidence to MD Smith Note * Sparkle ESTES Rakesh: PERFORM Event Display: Patient Education Leaflets Authored Date: Depression ?? [id number] Depression Depression is a very common mental health problem. It's not just a state of being unhappy or sad. It's a true disease. The cause seems to be linked to a change in chemicals that send signals in the brain. These things increase a person???s risk of depression: ??? A family history of depression, alcoholism, or suicide ??? Chronic illness ??? Chronic pain ???Migraine headaches ??? High emotional stress Depression may be easier to see in others. You may have a hard time seeing it in yourself. It can show in many physical and emotional ways. These include: ??? Loss of appetite ??? Overeating ??? Not being able to sleep ??? Sleeping too much ??? A lot of tiredness not linked to physical activity ??? Restlessness or irritability ??? Slowness of movement or speech ??? Feeling sad or withdrawn ??? Loss of interest in things you once enjoyed ??? Trouble??concentrating, remembering,??or making decisions ??? Thoughts of harming or killing yourself, or thoughts that life is not worth living ??? Low self-esteem The treatment for depression may include both medicine and psychotherapy. Antidepressants can ease symptoms. They can also make it easier for you to do daily tasks. Therapy can offer emotional support. It can also help you understand things that may be causing the depression. Home care ??? Ongoing care and support help people manage this disease. Find a healthcare provider and therapist who meet your needs. Get help when you feel like you may be getting ill. ??? Be kind to yourself. Make it a point to do things that you enjoy. This may be gardening, walking in nature, or going to a movie. Reward yourself for small successes. ??? Take care of your body. Eat a balanced diet. Eat foods low in saturated fat. Eat a lot of fruits and vegetables. Exercise at least 3 times a week for 30 minutes. Even mild to moderate exercise like brisk walking can make you feel better. ??? Take medicine as prescribed. Don't stop your medicine or change the dose unless you talk with your healthcare provider. ??? Once you start medicine, expect your symptoms to get better slowly. Depression will lift over time. It doesn't get better right away. Ask your healthcare provider how long it will take for a medicine to start working. ??? Don't share your medicine. Don???t use someone else's medicine. ??? Tell your healthcare providers all the medicines you take. This includes prescription and hoyq-fgs-jxobkjj medicines. It includes vitamins and herbal supplements. Some supplements caninteract with medicines. They can cause dangerous side effects. Ask your pharmacist about medicine interactions when you have questions. ??? Don't make major decisions until you feel better. This incl udes things such as a job change, a divorce, or a marriage. ??? Don't drink alcohol. It can make depression worse. ??? Talk with your family and??trusted friends??about your feelings and thoughts.??Ask them to help you notice behavior changes early. You can then get help and, if needed, your medicine can be changed. ??? Talk with your healthcare provider if you are not getting better. They may change your medicine or have you try another treatment. ?? Follow-up care Follow up with your healthcare provider as advised. ?? Crisis care Call 988 if you have thoughts of harming yourself or others. When you call or text 988, you will beconnected to trained crisis counselors. An online chat option is also available. Lifeline is free and available 04/09. 988 counselors will work with 911 to help you get the care you need. Call 988 if you: ??? Have suicidal thoughts, a suicide plan, and a way to carry out the plan ??? Have serious thoughts of hurting someone else ??? Have trouble breathing ??? Are??very confused ??? Feel very drowsy or have??trouble awakening ??? Faint ??? Have new chest pain that becomes more severe, lasts longer, or spreads into your shoulder, arm, neck, jaw, or back ?? When to get medical care Call your healthcare provider right away if any of these happen: ??? Your symptoms get worse ??? You have extreme depression, fear, anxiety, or anger toward yourself or others ??? You feel out of control ??? You feel that you may try to harm yourself or another ??? You hear voices other people don't hear ??? You see things other people don't see ??? You don't sleep or eat for 3 days in a row ??? Friends or family express concern over your behavior and ask you to get help ?? Last Reviewed Date: 2021 ?? 5935-1722 [employer]. All rights reserved. This information is not intended as a substitute for professional medical care. Always follow your healthcare professional's instructions. ?? Patient Care team information Care Team Personnel Name: Natasha Dickey RN Position: S RN Member Role: Primary Care Nurse Name: Lauryn Nolasco Position: S RN Member Role: Primary Care Nurse Name: Blaire Solis RN Position: S RN Member Role: Primary Care Nurse Name: Stefani Pinto RN Position: S RN Member Role: Primary Care Nurse Name: Melissa Stapleton RN Position: S RN Member Role: Primary Care Nurse Name: Ligia Stapleton RN Position: S RN Member Role: Primary Care Nurse Name: Martin Martinez RN Position: S RN Member Role: Primary Care Nurse Name: Narda Wilson NP Position: Reference Physician Member Role: PCP Address: Address: [address] [place] [address] Name: Mariaelena Collazo RN Position: [facility] RN Member Role: Primary Care Nurse Name: Nikki Croft RN Position: [facility] RN Supv Member Role: Primary Care Nurse Name: Giana Huntley RN Position: [facility] RN Member Role: Primary Care Nurse Name: John Cuellar RN Position: [facility] RN Member Role: Primary Care Nurse Name: Holly Bowman RN Position: [facility] RN Member Role: Primary Care Nurse Name: Aline Izaguirre RN Position: [facility] RN Member Role: Primary Care Nurse Name: Ad Cao RN Position: [facility] ED RN W/OE and Tasks Member Role: Patient Care Provider Name: Parminder Villagran MD Position: [facility] ED Medicine MD Member Role: Admitting Physician Address: Address: [address] [place] [address]- [place] Care Team Related Persons Name: [employer] Address: [address] [address] Name: YULIYA MORA Address: home [address] [place] [address] Name: SUNDAY MORA Address: [place] [address]
--- OUTSIDE RECORDS SUMMARY | 2023-06-07 19:09 | XMS_ITS | Continuity of Care Document ---
Author Organization [facility] Address [address] [place] [address]- Care Team Providers Care Continuous Improvement Black Belt Name Role Phone Katie RILEY, Narda Fonseca Primary Care Physici an Encounter [facility] [place] Date(s): 04/01/20 - 04/01/[address] [address]- Discharge Disposition: A-D/C Home Attending Physician: Torrey Morfin MD Admitting Physician: [...] EDT, Tablet Start Date: 05/02/19 Status: Ordered DiphenhydrAMINE = 50 mg, Daily at bedtime, PRN at bedtime, 0 Refills, Maintenance, 11/22/19 11:27:00 EDT Start Date: 11/22/19 Status: Ordered Effexor By Mouth, Patient states that she takes 3 75mg tablets in the morning., Maintenance, 02/14/20 23:49:00 EST, Partial fill upon patient request if the prescription is for a schedule II opioid drug. Start Date: 02/14/20 Status: Ordered ibuprofen 400 mg oral tablet [...] Maintenance,04/30/19 13:49:00 EDT, Route to Pharmacy Electronically, [facility]/pharmacy #[id number], 175, cm, 04/30/19 12:12:00 EDT, Height, 107.27, kg, 03/18/19 12:26:00 EST,... Start Date: 04/30/19 Status: Ordered Trileptal 300 mg oral tablet 300 mg, 1, tablet, By Mouth, 2 times a day, [...] [Reference Range]: 1 2 Height 168 cm (04/01/20 11:21 PM) 168 cm (04/01/20 8:18 PM) Weight 127.5 kg (04/01/20 11:21 PM) 127.5 kg (04/01/20 8:18 PM) Oxygen Saturation [94-100 %] 96 % (04/01/20 11:21 PM) 98 % (04/01/20 8:18 PM) Pulse Rate [55-90 bpm] 102 bpm *H* (04/01/20 11:21 PM) 110 bpm *H* (04/01/20 8:18 PM) Body Mass Index [18.5-24.99] 45.17 *>HHI* (04/01/20 11:21 PM) Blood Pressure [90-138/55-84 mm Hg] 102/ 64mm Hg (04/01/20 11:21 PM) 130/74mm Hg (04/01/20 8:18 PM) Respiratory Rate [16-30 br/min] 16 br/mi n (04/01/20 11:21 PM) 20 br/min (04/01/20 8:18 PM) Temperature [96.8-100.4 DegF] 97.7 DegF (04/01/20 11: PM) 98.8 DegF (04/01/20 8:18 PM) Mode of Delivery (Oxygen) Room air (04/01/20 11:21 PM) Room air (04/01/20 8:18 PM) Blood pressure sites Arm, left (04/01/20 11:21 PM) Temperature Route Oral (04/01/20 11:21 PM) Oral (04/01/20 8:18 PM) Dry Weight 127.5 kg (04/01/20 11:21 PM) 127.5 kg (04/01/20 8:18 PM) Social History Social History Type Response Smoking Status 10 or more cigarette s (1/2 pack or more)/day in last 30 days entered on: 09/07/18 Sex
--- OUTSIDE RECORDS SUMMARY | 2023-06-07 19:09 | XMS_ITS | Continuity of Care Document ---
Author Organization [facility] Address [address] [place] [address]- Care Team Providers Care Fitter Mechanic Name Role Phone Yovanny RILEY, Nikki Primary Care Physician [place] [facility] [place] - 04/09/[address] [address]- Discharge Disposition: A-D/C Home Attending Physician: Parminder [...] 0 Refills, Maintenance, 04/03/23 8:17:00 EST, Tablet, [id number], Partial fill upon patient request if the prescription is for a schedule II opioid drug., 167, cm, 04/02/23 20:... Start Date: 04/03/23 Status: Ordered duloxetine 60 mg oral enteric coated capsule = 60 mg, By Mouth, Daily, # 30 capsule, 0 Refills, Maintenance, 04/03/23 8:17:00 EST, Capsule, [facility]-[address]92, Partial fill upon patient request if the prescription is for a schedule II opioid drug., 167, cm, 04/02/23 20:16:00 EST,... Start Date: 04/03/23 Status: Ordered haloperidol 5 mg oral tablet 5 mg, By Mouth, Daily, # 30 tablet, Refills 0, Tot. Refills 0, Maintenance, 04/03/23 8:19:00 EST, [facility] [id number], Partial fill upon patient request if the prescription is for a schedule II opioid d... Start Date: 04/03/23 Status: Ordered haloperidol 5 mg oral tablet 5 mg, By Mouth, 2 times a day, PRN, # 60 tablet, Refills 0, Tot. Refills 0, Maintenance, Anxiety, 04/03/23 8:20:00 EST, [facility] [id number], Partial fill upon patient request if the [...] Refills, Maintenance, 04/03/23 8:17:00 EST, ER Tablet, [id number], Partial fill upon patient request if the [...] 04/03/23 8:18:00 EST, Route to Pharmacy Electronically, [facility]-[id number], Partial fill upon patient request if the prescription is for a schedule... Start Date: 04/03/23 Status: Ordered prazosin 1 mg oral capsule 1 mg, Capsule, By Mouth, 04/08/23 21:00:00 EST Start Date: 04/08/23 Stop Date: 04/08/23 Status: Completed topiramate 50 mg oral tablet = 150 mg, By Mouth, Daily at bedtime, # 90 tablet, 0 Refills, Maintenance, 04/03/23 8:18:00 EST, Tablet, [facility]140, Partial fill upon patient request if the prescription is for a schedule II opioid drug., 167, cm, 04/02/23 20:... Start Date: 04/03/23 Status: Ordered traZODone 50 mg oral tablet 50 mg, By Mouth, Daily at bedtime, PRN, # 30 tablet, Refills 0, Tot. Refills 0, Maintenance, Sleep,04/03/23 8:19:00 EST, Route to Pharmacy Electronically, [facility]-[id number], Partialfill upon patient request if the prescription [...] Range]: 1 2 3 Height 167 cm (04/09/23 8:31 AM) 167 cm (04/08/23 6: PM) Weight 144.7 kg (04/09/23 8:31 AM) 144.7 kg (04/08/23 6: PM) Oxygen Saturation [94-100 %] 95 % (04/09/23 8:31 AM) 97 % (04/08/23 8:00 PM) 97 % (04/08/23 6: PM) Pulse Rate [55-90 bpm] 83 bpm (04/09/23 8: AM) 109 bpm *H* (04/08/23 6: PM) Body Mass Index [18.5-24.99 kg/m2] 51.88 kg/m2 *>HHI* (04/09/23 8:31 AM) Blood Pressure [90-138/55-84 mm Hg] 115/72mm Hg (04/09/23 8:31 AM) 120/66mm Hg (04/08/23 8:52 PM) 120/66mm Hg (04/08/23 8:00 PM) Respiratory Rate [16-30 br/min] 16 br/min (04/09/23 8:31 AM) 20 br/min (04/08/23 8:00 PM) 18 br/min (04/08/23 6: PM) Temperature [96.8-100.4 DegF] 97.4 DegF (04/09/23 8:31 AM) 98.0 DegF (04/08/23 8:00 PM) 98.9 DegF (04/08/23: PM) Mode of Delivery (Oxygen) Room air (04/09/23 8:31 AM) Room air (04/08/23 8:00 PM) Room air (04/08/23 6:26 PM) Blood pressure sites Arm, left (04/09/23 8:31 AM) Arm, left (04/08/23 8:00 PM) Arm, left (04/08/23 6:26 PM) Temperature Route Temporal (04/09/23 8:31 AM) Temporal (04/08/23 8:00 PM) Temporal (04/08/23 6:26 PM) Dry Weight 144.7 kg (04/09/23 8:31 AM) 144.7 kg (04/08/23 6:26 PM) Social History Social History Type Response Smoking Status 10 or more cigarette s (1/2 pack or more)/day in last 30 days entered on: 09/07/18 Sex Note * Parminder Villagran MD: PERFORM Event Display: Patient Education Leaflets Authored Date: [id number] Depression ?? [id number] Depression Depression is a very common mental [...] medicines you take. This includes prescription and hdut-foy-pfheymp medicines. It includes vitamins and herbal supplements. [...] An online chat option is also available. [employer] is free and available 04/09. 988 counselors will work with 911 to help you get the care you need. Call 911 if you: ??? Have trouble breathing ??? Are??very confused ??? Feel very drowsy or have??trouble awakening ??? Faint ??? Have new chest pain that becomes more severe, lasts longer, or spreadsinto your shoulder, arm, neck, jaw, or back [...] help ?? Last Reviewed Date: 2021 ?? 8686-1113 [employer]. All rights reserved. This information is not intended as a substitute for professional medical care. Always follow your healthcare professional's instructions. ?? Patient Care team information Care Team Personnel Name: Garcia Baez RN Position: [facility] RN Member Role: Primary Care Nurse Name: Diamond Mancini RN Position: [facility] RN Member Role: Primary Care Nurse Name: Leah Almonte RN Position: [facility] RN Member Role: Primary Care Nurse Name: Natasha Dickey RN Position: [facility] RN Member Role: Primary Care Nurse Name: Kellee Garvin RN Position: [facility] RN Member Role: Primary Care Nurse Name: Maegan Diaz RN Position: [facility] RN Member Role: Primary Care Nurse Name: Genesis Lea RN Position: [facility] RN Member Role: Primary Care Nurse Name: Nikki Hairston NP Position: [facility] PCO Associate Professional Member Role: PCP Address: Address: [address] [place] [address] Name: Alejandra Gilbert RN Position: [facility] RN Member Role: Primary Care Nurse Name: Zara Colon RN Position: [facility] RN Suptony Member Role: Primary Care Nurse Name: Stefani Pinto RN Position: [facility] RN Member Role: Primary Care Nurse Name: Araceli Quevedo RN Position: [facility] RN Member Role: Primary Care Nurse Name: Fatoumata Loyd RN Position: [facility] RN Member Role: Primary Care Nurse Name: Melissa Stapleotn RN Position: [facility] RN Member Role: Primary Care Nurse Name: Ligia Stapleton RN Position: S RN Member Role: Primary Care Nurse Name: Melissa Davison RN Position: [facility] MELANY RN W/OE and Tasks Member Role: Primary Care Nurse Name: Trinidad Ordonez RN Position: [facility] RN Member Role: Primary Care Nurse Name: Mariaelena Collazo RN Position: [facility] RN Member Role: Primary Care Nurse Name: Beatrice Pisano RN Position: [facility] RN Member Role: Primary Care Nurse Name: Shankar Man Position: [facility] RN Member Role: Primary Care Nurse Name: Nikki Croft RN Position: [facility] RN Member Role: Primary Care Nurse Name: John Cuellar RN Position: [facility] RN Member Role: Primary Care Nurse Name: Christos Godoy RN Position: [facility] RN Member Role: Primary Care Nurse Care Team Related Persons Name: [employer] Address: [address] [address] Name: YULIYA MORA Address: home [address] [place] [address] Name: SUNDAY MORA Address: [place] [address]
--- OUTSIDE RECORDS SUMMARY | 2023-06-07 19:09 | XMS_ITS | Continuity of Care Document ---
Author Organization [facility] Address [address] [place] [address]- Care Team Providers Care Noodle Press Operator Name Role Phone Anny Arnett Primary Care Physician [phone] Encounter [facility] Date(s): 10/22/22 - 10/24/[address] [address]- Discharge Disposition: A-D/C Home Attending Physician: Parminder [...] (COVID-19) mRNA BNT-162b2 vac 03/02/20 Recorded Medications bacitracin topical 500 u/gm ointment 1 application, Topically, 3 times a day, apply to affected skin, # 15 Gm, 0 Refills, Maintenance, 10/12/22 4:44:00 EDT, Ointment, Partial fill upon patient request if the prescription is for a schedule II opioid drug. Start Date: 10/12/22 Stop Date: 10/19/22 Status: Ordered benzonatate 100 mg oral capsule 2 capsule = 200 mg, By Mouth, 3 times a day, PRN as needed for cough, # 30 capsule, 0 Refills, Maintenance, 10/12/22 4:43:00 EDT, Capsule, Partial fill upon patient request if the prescription is fora schedule II opioid drug. Start Date: 10/12/22 Status: Ordered desmopressin 0.2 mg oral tablet 2 tablet [...] opioid drug. Start Date: 08/17/22 Status: Ordered duloxetine 20 mg oral enteric coated capsule = 20 mg, By Mouth, 2 times a day, # 60 capsule, 0 Refills, Maintenance, 10/10/22 10:08:00 EDT, Capsule, [id number], Partial fill upon patient request if the prescription is for a schedule II opioid drug., 168, cm, 10/10/22 9:07... Start Date: 10/10/22 Status: Ordered fluticasone 27.5 mcg/inh nasal spray 2 sprays, Nares, Both, Daily, PRN for allergy symptoms, # 10 Gm, 0 Refills, Maintenance, 10/12/22 4:42:00 EDT, [place], Partial fill upon patient request if the prescription is for a schedule II opioiddrug. Start Date: 10/12/22 Status: Ordered gabapentin 300 mg oral capsule 300 mg, By Mouth, Daily, # 30 capsule, Refills 0, Tot. Refills 0, Maintenance, 10/10/22 10:08:00 EDT, [id number], Partial fill upon patient request if the prescription is for a schedule II opio... Start Date: 10/10/22 Status: Ordered gabapentin 300 mg oral capsule 300 mg, Capsule, By Mouth, 10/24/22 9:00:00 EDT Start Date: 10/24/22 Stop Date: 10/24/22 Status: Completed gabapentin 300 mg oral capsule 600 mg, Capsule, By Mouth, 10/24/22 9:00:00 EDT Start Date: 10/24/22 Stop Date: 10/24/22 Status: Completed gabapentin 600 mg oral tablet = 600 mg, By Mouth, 3 times a day, 0 Refills, Maintenance, 10/10/22 10:07:00 EDT, Tablet, Partial fill upon patient request if the prescription is for a schedule II opioid drug. Start Date: 10/10/22 Status: Ordered haloperidol 5 mg oral tablet 5 mg, 1, tablet, By Mouth, 3 times a day, PRN, Refills 0, Maintenance, Anxiety, 08/28/22 12:08:00 EDT, Partial fill upon patient request if the prescription is for a schedule II opioid drug. Start Date: 08/28/22 Status: Ordered lamotrigine 25 mg oral tablet 50 mg, By Mouth, Daily, # 60 tablet, Refills 0, Tot. Refills 0, Maintenance, 10/10/22 10:08:00 EDT,Route to Pharmacy Electronically, [id number], Partial fill upon patient request if the prescription is for a schedule II opioid... Start Date: 10/10/22 Status: Ordered melatonin 3 mg oral tablet 3 tablet = 9 mg, By Mouth, Daily at bedtime, PRN for insomnia, # 60 tablet, 0 Refills, Maintenance,10/12/22 4:42:00 EDT, Tablet, Partial fill upon patient request if the prescription is for a schedule II opioid drug. Start Date: 10/12/22 Status: Ordered methylphenidate 54 mg oral tablet, extended release = 54 mg, By Mouth, Daily, 0 Refills, Maintenance, 10/10/22 10:10:00 EDT, ER Tablet, Partial fill upon patient request if the prescription is for a schedule II opioid drug. Start Date: 10/10/22 Status: Ordered olanzapine 5 mg oral tablet, disintegrating = 5 mg, By Mouth, Daily, PRN Anxiety, # 30 tablet, 0 Refills, Maintenance, 10/10/22 10:10:00 EDT, DIS Tablet, [facility]-[id number], Partial fill upon patient request if the prescriptionis for a schedule II opioid drug., 168, cm, ... Start Date: 10/10/22 Status: Ordered prazosin 1 mg oral capsule 2 mg, By Mouth, Daily at bedtime, Refills 0, Maintenance, 10/10/22 10:08:00 EDT, Partial fill upon patient request if the prescription is for a schedule II opioid drug. Start Date: 10/10/22 Status: Ordered prazosin 1 mg oral capsule 2 mg, Capsule, By Mouth, 10/23/22 21:00:00 EDT Start Date: 10/23/22 Stop Date: 10/23/22 Status: Completed Robitussin DM Liquid 5 mL, By Mouth, Every 8 hours, PRN Cough, 0 Refills, Maintenance, 10/12/22 4:41:00 EDT, Syrup, Partial fill upon patient request if the prescription is for a schedule II opioid drug. Start Date: 10/12/22 Status: Ordered topiramate 25 mg oral tablet [...] Range]: 1 2 3 Height 168 cm (10/24/22 8:33 AM) 168 cm (10/23/22 11:33 PM) 168 cm (10/22/22 7:34 PM) Weight 137.5 kg (10/24/22 8:33 AM) 137.5 kg (10/23/22 11:33 PM) 137.5 kg (10/22/22 7:34 PM) Oxygen Saturation [94-100 %] 98 % (10/24/22 8:33 AM) 98 % (10/23/22 11:33 PM) 100 % (10/23/22 1:20 PM) Pulse Rate [55-90 bpm] 104 bpm *H* (10/24/22 8:33 AM) 98 bpm *H* (10/23/22 11:33 PM) 88 bpm (10/23/22 1:20 PM) Body Mass Index [18.5-24.99 kg/m2] 48.72 kg/m2 *>HHI* (10/24/22 8:33 AM) 48.72 kg/m2 *>HHI* (10/23/22 11:33 PM) Blood Pressure [90-138/55-84 mm Hg] 127/80mm Hg (10/24/22 8:33 AM) 131/79mm Hg (10/23/22 11:33 PM) 131/79mm Hg (10/23/22 11:30 PM) Respiratory Rate [16-30 br/min] 16 br/min (10/24/22 8:35 AM) 16 br/min (10/24/22 8:35 AM) 16 br/min (10/24/22 8:33 AM) Temperature [96.8-100.4 DegF] 97.6 DegF (10/24/22 8:33 AM) 98.7 DegF (10/23/22 11:33 PM) 99.0 DegF (10/23/22 1:20 PM) Mode of Delivery (Oxygen) Room air (10/24/22 8:33 AM) room air (10/23/22 11:33 PM) Room air (10/23/22 1:20 PM) Blood pressure sites Arm, right (10/24/22 8:33 AM) Temperature Route Temporal (10/24/22 8:33 AM) Temporal (10/23/22 11:33 PM) Temporal (10/23/22 1:20 PM) Dry Weight 137.5 kg (10/24/22 8:33 AM) 137.5 kg (10/23/22 11:33 PM) 137.5 kg (10/22/22 7:34 PM) Social History Social History Type Response Smoking Status 10 or more cigarette s (1/2 pack or more)/day in last 30 days entered on: 09/07/18 Sex Note * Sparkle ESTES, Parminder: PERFORM Event Display: Patient Education Leaflets Authored Date: [id number] Depression ?? [id number] Depression Depression is a very common mental [...] medicines you take. This includes prescription and ikbr-lsc-aktroyp medicines. It includes vitamins and herbal supplements. [...] An online chat option is also available. Gendel is free and available 04/09. 988 counselors [...] help ?? Last Reviewed Date: 2021 ?? [id number] [employer]. All rights reserved. This information is not intended as a substitute for professional medical care. Always follow your healthcare professional's instructions. ?? Patient Care team information Care Team Personnel Name: Natasha Dickey RN Position: [facility] RN Member Role: Primary Care Nurse Name: Anny Arnett Position: [facility] Associate Professional Member Role: PCP Address: Address: [address] [place] [address] [place] [address]- Name: Genesis Lea RN Position: [facility] RN Member Role: Primary Care Nurse Name: Blaire Solis RN Position: [facility] RN Member Role: Primary Care Nurse Name: Stefani Pinto RN Position: [facility] RN Member Role: Primary Care Nurse Name: Melissa Stapleton RN Position: [facility] RN Member Role: Primary Care Nurse Name: Ligia Stapleton RN Position: [facility] RN Member Role: Primary Care Nurse Name: Trinidad Ordonez RN Position: [facility] RN Member Role: Primary Care Nurse Name: Mariaelena Collazo RN Position: [facility] RN Member Role: Primary Care Nurse Name: Nikki Croft RN Position: [facility] RN Member Role: Primary Care Nurse Name: John Cuellar RN Position: [facility] RN Member Role: Primary Care Nurse Name: Christos Godoy RN Position: [facility] RN Member Role: Primary Care Nurse Name: Efrem Santiago RN Position: [facility] ED RN W/OE and Tasks Member Role: Patient Care Provider Name: Taty Horn RN Position: [facility] ED RN W/OE and Tasks Member Role: Patient Care Provider Name: Parminder Villagran MD Position: [facility] ED Medicine MD Member Role: Admitting Physician Address: Address: [address] [place] [address] [place] [address]- Care Team Related Persons Name: [employer] Address: home [address] [place] [id number] Name: YULIYA MORA Address: home [address] [place] [address] Name: SUNDAY MORA Address: [place] [address]
--- OUTSIDE RECORDS SUMMARY | 2023-06-07 19:09 | XMS_ITS | Continuity of Care Document ---
Author Organization [facility] Address [address] [place] [address]- Care Team Providers Care Silk Printer Name Role Phone Yovanny RILEY, Nikki Primary Care Physician [place] [facility] Date(s): 04/22/23 - 04/23/[address] [address]- Encounter Diagnosis Suicidal ideation(Final) - 04/22/23 Borderline personality disorder(Final) - 04/22/23 Discharge Disposition: A-D/C Home Attending Physician: Parminder Villagran MD Admitting Physician: Parminder Villagran MD Referring Physician: Not on Staff, Referring MD Allergies, Adverse Reactions, Alerts Substance Reaction Severity Status Thorazine Skin rash Active Geodon full body tremors Active Trileptal Active Immunizations Given and Recorded Vaccine [...] 0 Refills, Maintenance, 04/03/23 8:17:00 EST, Tablet, [facility]-[id number], Partial fill upon patient request if the prescription is for a schedule II opioid drug., 167, cm, 04/02/23 20:... Start Date: 04/03/23 Status: Ordered duloxetine 60 mg oral enteric coated capsule = 60 mg, By Mouth, Daily, # 30 capsule, 0 Refills, Maintenance, 04/03/23 8:17:00 EST, Capsule, [facility]-[id number], Partial fill upon patient request if the prescription is for a schedule II opioid drug., 167, cm, 04/02/23 20:16:00 EST,... Start Date: 04/03/23 Status: Ordered haloperidol 5 mg oral tablet 5 mg, By Mouth, Daily, # 30 tablet, Refills 0, Tot. Refills 0, Maintenance, 04/03/23 8:19:00 EST, Route to Pharmacy Electronically, [facility]-[id number], Partial fill upon patient request if the prescription is for a schedule II opioid d... Start Date: 04/03/23 Status: Ordered haloperidol 5 mg oral tablet 5 mg, By Mouth, 2 times a day, PRN, # 60 tablet, Refills 0, Tot. Refills 0, Maintenance, Anxiety, 04/03/23 8:20:00 EST, [facility] [id number], Partial fill upon patient request if the [...] Refills, Maintenance, 04/03/23 8:17:00 EST, ER Tablet, [facility]-[id number], Partial fill upon patient request if the [...] oral capsule 1 mg, Capsule, By Mouth, 04/22/23 21:00:00 EDT Start Date: 04/22/23 Stop Date: 04/22/23 Status: Completed prazosin 1 mg oral capsule 1 mg, By Mouth, Daily at bedtime, # 30 capsule, Refills 0, Tot. Refills 0, Maintenance, 04/03/23 8:18:00 EST, Route to Pharmacy Electronically, [facility], Partial fill upon patient request if the prescription is for a schedule... Start Date: 04/03/23 Status: Ordered topiramate 50 mg oral tablet = 150 mg, By Mouth, Daily at bedtime, # 90 tablet, 0 Refills, Maintenance, 04/03/23 8:18:00 EST, Tablet, [facility]-[id number], Partial fill upon patient request if the prescription is for a schedule II opioid drug., 167, cm, 04/02/23 20:... Start Date: 04/03/23 Status: Ordered traZODone 50 mg oral tablet 50 mg, By Mouth, Daily at bedtime, PRN, # 30 tablet, Refills 0, Tot. Refills 0, Maintenance, Sleep,04/03/23 8:19:00 EST, [facility] [place], Partialfill upon patient request if the prescription [...] Range]: 1 2 3 Height 168 cm (04/23/23 11:23 AM) 168 cm (04/22/23 3:34 PM) Weight 145 kg (04/23/23 11:23 AM) 145 kg (04/22/23 3:34 PM) Oxygen Saturation [94-100 %] 95 % (04/23/23 8:36 AM) 94 % (04/22/23 10:00 PM) 97 % (04/22/23 3:34 PM) Pulse Rate [55-90 bpm] 103 bpm *H* (04/23/23 8:36 AM) 83 bpm (04/22/23 10:00 PM) 146 bpm *H* (04/22/23 3:34 PM) Blood Pressure [90-138/55-84 mm Hg] 123/92mm Hg (04/23/23 8:36 AM) 116/69mm Hg (04/22/23 10:40 PM) 148/44mm Hg *H* (04/22/23 3:34 PM) Respiratory Rate [16-30 br/min] 18 br/min (04/23/23 8:36 AM) 16 br/min (04/22/23 10:00 PM) 18 br/min (04/22/23 3:34 PM) Temperature [96.8-100.4 DegF] 97.5 DegF (04/23/23 8:36 AM) 98.0 DegF (04/22/23 10:00 PM) 97.5 DegF (04/22/23 3:34 PM) Mode of Delivery (Oxygen) Room air (04/23/23 8:36 AM) Room air (04/22/23 10:00 PM) Room air (04/22/23 3:34 PM) Blood pressure sites Arm, left (04/23/23 8:36 AM) Arm, left (04/22/23 10:00 PM) Temperature Route Temporal (04/23/23 8:36 AM) Dry Weight 145 kg (04/23/23 11:23 AM) 145 kg (04/22/23 3:34 PM) Social History Social History Type Response Smoking Status 10 or more cigarette s (1/2 pack or more)/day in last 30 days entered on: 09/07/18 Sex EKG study * Event Display: ECG 12-Lead Authored Date: Please click on pdf link to open report * Event Display: ECG 12-Lead Authored Date: Ventricular Rate: 92 BPM Atrial Rate: 92 BPM P-R Interval: 196 ms QRS Duration: 92 ms Q-T Interval: 350 ms QTC Calculation(Bazett): 432 ms P [place]: 50 degrees R [place]: 51 degrees T [place]: 28 degrees Normal sinus rhythm Normal ECG When compared with ECG of 14-MAR-2023 08:18, No significant change was found Confirmed by SULEMA HANNON ([id number]) on 04/22/2023 9:56:57 PM Munday: SULEMA HANNON Note * Sparkle ESTES Rakesh: PERFORM Event Display: Patient Education Leaflets Authored Date: [id number] Depression ?? [id number] Depression Depression is a very common mental [...] medicines you take. This includes prescription and gthf-zqd-nqysmvj medicines. It includes vitamins and herbal supplements. [...] An online chat option is also available. Acer is free and available 04/09. 988 counselors [...] help ?? Last Reviewed Date: 2021 ?? [id number] [employer]. All rights reserved. This information is not intended as a substitute for professional medical care. Always follow your healthcare professional's instructions. ?? Patient Care team information Care Team Personnel Name: Garcia Baez RN Position: [facility] RN Member Role: Primary Care Nurse Name: Diamond Mancini RN Position: [facility] RN Member Role: Primary Care Nurse Name: Leah Almonte RN Position: [facility] RN Member Role: Primary Care Nurse Name: Natasha Dickey RN Position: [facility] RN Member Role: Primary Care Nurse Name: Kellee Garvin RN Position: S RN Member Role: Primary Care Nurse Name: Maegan Diaz RN Position: S RN Member Role: Primary Care Nurse Name: Genesis Lea RN Position: [facility] RN Member Role: Primary Care Nurse Name: Nikki Hairston NP Position: [facility] PCO Associate Professional Member Role: PCP Address: Address: [address] [place] [address]- Name: Alejandra Gilbert RN Position: [facility] RN Member Role: Primary Care Nurse Name: Zara Colon RN Position: [facility] RN Supv Member Role: Primary Care Nurse Name: Stefani Pinto RN Position: S RN Member Role: Primary Care Nurse Name: Araceli Quevedo RN Position: [facility] RN Member Role: Primary Care Nurse Name: Fatoumata Loyd RN Position: S RN Member Role: Primary Care Nurse Name: Melissa Stapleton RN Position: [facility] RN Member Role: Primary Care Nurse Name: Ligia Stapleton RN Position: [facility] RN Member Role: Primary Care Nurse Name: Melissa Davison RN Position: [facility] RN Member Role: Primary Care Nurse Name: Trinidad Ordonez RN Position: [facility] RN Member Role: Primary Care Nurse Name: Mariaelena Collazo RN Position: [facility] RN Member Role: Primary Care Nurse Name: Beatrice Pisano RN Position: [facility] RN Member Role: Primary Care Nurse Name: Shankar Man Position: [facility] RN Member Role: Primary Care Nurse Name: Nikki Croft RN Position: [facility] RN Member Role: Primary Care Nurse Name: John Cuellar RN Position: [facility] RN Member Role: Primary Care Nurse Name: Christos Godoy RN Position: [facility] RN Member Role: Primary Care Nurse Care Team Related Persons Name: [employer] Address: home [address] [place] [address] Name: YULIYA MORA Address: home [address] [place] [address] Name: SUNDAY [place]ORA Address: [place] [address]
--- OUTSIDE RECORDS SUMMARY | 2023-06-07 19:09 | XMS_ITS | Continuity of Care Document ---
Author Organization [facility] Address [address] [place] [address]- Care Team Providers Care Locomotive Supervisor Name Role Phone Bela Dumont MD Primary Care Physician Encounter [facility] Date(s): 08/08/19 - 08/10/[address] [address]- [facility] [phone] Encounter Diagnosis Suicidal behavior(Final) - 08/10/19 Discharge Disposition: Transfer to [facility] Facility Attending Physician: Mariusz Diaz MD Admitting Physician: Mariusz Diaz MD Referring Physician: Not on Staff, Referring [...] Replace Required Details, Route to Pharmacy Electronically, [id number], 175, cm, 04/30/19 12:12:00... Start Date: 04/30/19 Status: Ordered buPROPion 100 mg/12 hours (SR) oral tablet, extended release 1 tablet = 100 mg, By Mouth, Daily before dinner, # 30 tablet, 0 Refills, Maintenance, 04/30/19 13:51:00 EDT, SR Tablet, [id number], 175, cm, 04/30/19 12:12:00 EDT, Height, 107.27, kg, 03/18/19 12:26:00 EST, Dry Weight Start Date: 04/30/19 Status: Ordered buPROPion 200 mg/12 hours (SR) oral tablet, extended release 1 tablet = 200 mg, By Mouth, Daily in AM, # 30 tablet, 0 Refills, Maintenance, 04/30/19 13:51:00 EDT, ER Tablet, [facility] #[id number], 175, cm, 04/30/19 12:12:00 EDT, Height, 107.27, kg, 03/18/19 12:26:00 EST, Dry Weight Start Date: 04/30/19 Status: Ordered escitalopram 20 mg oral tablet 1 tablet = 20 mg, By Mouth, Daily, # 30 tablet, 0 Refills, Maintenance, 04/30/19 13:47:00 EDT, Tablet, [facility]/pharmacy #[id number], 175, cm, 04/30/19 12:12:00 EDT, Height, 107.27, kg, 03/18/19 12:26:00 EST, Dry Weight Start Date: 04/30/19 Status: Ordered haloperidol 5 mg oral tablet See Instructions, 2 tablets PO QAM and 1 tablet PO QHS, # 90 tablet, Refills 0, Tot. Refills 0, Maintenance, 04/30/19 13:53:00 EDT, Instructions Replace Required Details, [id number], cm, 04/30/19 12:12:00... Start Date: 04/30/19 Status: Ordered lamotrigine 100 mg oral tablet 250 mg, 2.5, tablet, By Mouth, Daily at bedtime, # 75 tablet, Refills 0, Tot. Refills 0, Maintenance, 04/30/19 13:48:00 EDT, Route to Pharmacy Electronically, [facility] #[id number], 175, cm, 04/30/19 12:12:00 EDT, Height, 107.27, kg, 03/18/19 12:26:00 ES... Start Date: 04/30/19 Status: Ordered traZODone 100 mg oral tablet 100 mg, 1, tablet, By Mouth, Daily at bedtime, # 30 tablet, Refills 0, Tot. Refills 0, Maintenance,04/30/19 13:49:00 EDT, Route to Pharmacy Electronically, [facility] #[id number], 175, cm, 04/30/19 12:12:00 EDT, Height, 107.27, kg, 03/18/19 12:26:00 EST,... Start Date: 04/30/19 Status: Ordered Problem List Condition Effective Dates Status Health Status Inform ant Depression(Confirmed) Active Tobacco dependence(Confirmed) Active Vital Signs Most recent to oldest [Reference Range]: 1 2 3 Height 168 cm (08/09/19 11:38 PM) 168 cm (08/09/19 8:28 PM) 168 cm (08/09/19 6:13 AM) Weight 104.5 kg (08/09/19 11:38 PM) 104.5 kg (08/09/19 8:28 PM) 104.5 kg (08/09/19 6:13 AM) Oxygen Saturation [94-100 %] 96 % (08/10/19 9:15 AM) 96 % (08/09/19 11:38 PM) 97 % (08/09/19 8:28 PM) Pulse Rate [55-90 bpm] 94 bpm *H* (08/10/19 9:15 AM) 82 bpm (08/09/19 11:38 PM) 91 bpm *H* (08/09/19 8:28 PM) Body Mass Index [18.5-24.99] 37.03 *>HHI* (08/09/19 11:38 PM) 37.03 *>HHI* (08/09/19 8:28 PM) 37.03 *>HHI* (08/09/19 6:13 AM) Blood Pressure [90-138/55-84 mm Hg] 99/69mm Hg (08/10/19 9:15 AM) 101/61mm Hg (08/09/19 11:38 PM) 98/67mm Hg (08/09/19 8:28 PM) Respiratory Rate [16-30 br/min] 20 br/min (08/10/19 9:15 AM) 16 br/min (08/09/19 11:38 PM) 18 br/min (08/09/19 8:28 PM) Temperature [96.8-100.4 DegF] 97.9 DegF (08/10/19 9:15 AM) 97.5 DegF (08/09/19 11:38 PM) 97.7 DegF (08/09/19 8:28 PM) Mode of Delivery (Oxygen) Room air (08/10/19 9:15 AM) room air (08/09/19 11:38 PM) Room air (08/09/19 8:28 PM) Blood pressure sites Arm, left (08/09/19 8:28 PM) Arm, right (08/09/19 6:13 AM) Arm, right (08/09/19 3:03 AM) Temperature Route Oral (08/10/19 9:15 AM) Oral (08/09/19 11:38 PM) Oral (08/09/19 8:28 PM) Dry Weight 104.5 kg (08/09/19 11:38 PM) 104.5 kg (08/09/19 8:28 PM) 104.5 kg (08/09/19 6:13 AM) Social History Social History Type Response Smoking Status 10 or more cigarette s (1/2 pack or more)/day in last 30 days entered on: 09/07/18 Sex
--- OUTSIDE RECORDS SUMMARY | 2023-06-07 19:09 | XMS_ITS | Continuity of Care Document ---
Author Organization [facility] Address [address] [place] [address]- Care Team Providers Care Proof Coins Inspector Name Role Phone Yovanny RILEY, Nikki Primary Care Physician [phone] Encounter [facility] [place] Date(s): 01/05/23 - 01/06/[address] [address]- Encounter Diagnosis Suicide attempt(Final) - 01/06/23 Discharge Disposition: Transferred to short-term general hospit Attending Physician: Stewart Hirsch MD Admitting Physician: [...] 0 Refills, Maintenance, 10/10/22 10:08:00 EDT, Capsule, [facility]-[id number], Partial fill upon patient request if the prescription is for a schedule II opioid drug., 168, cm, 10/10/22 9:07... Start Date: 10/10/22 Status: Ordered gabapentin 300 mg oral capsule 300 mg, By Mouth, Daily, # 30 capsule, Refills 0, Tot. Refills 0, Maintenance, 10/10/22 10:08:00 EDT, Route to Pharmacy Electronically, [facility]-[id number], Partial fill upon patient request if the prescription is for a schedule II opio... Start Date: 10/10/22 Status: Ordered gabapentin 600 mg oral tablet = 600 mg, By Mouth, Daily at bedtime, 0 Refills, Maintenance, 10/10/22 10:07:00 EDT, Tablet, Partial fill upon patient request if the prescription is for a schedule II opioid drug. Start Date: 10/10/22 Status: Ordered haloperidol 5 mg oral tablet 5 mg, 1, tablet, By Mouth, 2 times a day, PRN, Refills 0, Maintenance, Anxiety, 08/28/22 12:08:00 EDT, Partial fill upon patient request if the prescription is for a schedule II opioid drug. Start Date: 08/28/22 Status: Ordered Lamotrigine 75 mg, By Mouth, Daily, Refills 0, Maintenance, 12/23/22 12:05:00 EST, Partial fill upon patient request if the prescription is for a schedule II opioid drug. Start Date: 12/23/22 Status: Ordered methylphenidate 54 mg oral tablet, [...] Refills, Maintenance, 10/10/22 10:10:00 EDT, DIS Tablet, [facility]-[id number], Partial fill upon patient request if the prescriptionis for a schedule II opioid drug., 168, cm, ... Start Date: 10/10/22 Status: Ordered prazosin 1 mg oral capsule 2 mg, By Mouth, Daily at bedtime, Refills 0, Maintenance, 10/10/22 10:08:00 EDT, Partial fill upon patient request if the prescription is for a schedule II opioid drug. Start Date: 10/10/22 Status: Ordered topiramate 25 mg oral tablet = 25 mg, By Mouth, Daily, 0 Refills, Maintenance, 08/28/22 12:09:00 EDT, Tablet, Partial fill upon patient request if the prescription is for a schedule II opioid drug. Start Date: 08/28/22 Status: Ordered Zofran ODT 4 mg oral tablet, disintegrating = 4 mg, By Mouth, 3 times a day, PRN Nausea, 0 Refills, Maintenance, 12/28/22 7:52:00 EST, Partial fill upon patient request if the prescription is for a schedule II opioid drug. Start Date: 12/28/22 Status: Ordered Problem List Condition Confirmation Course Effective Dates Status Health St atus Informant COVID-19 virus infection Confirmed Active COVID-19 1 Confirmed 11/15/21 Active Depression Confirmed Active Major depressive disorder, recurrent Confirmed Active Severe obesity Confirmed Active Tobacco dependence Confirmed Active 1Problem added by Discern Expert Vital Signs Most recent to oldest [Reference Range]: 1 2 3 Height 167 cm (01/06/23 2:16 AM) 167 cm (01/06/23 1:48 AM) 167 cm (01/06/23 1:02 AM) Weight 145 kg (01/06/23 2:16 AM) 145 kg (01/06/23 1:48 AM) 145 kg (01/06/23 1:02 AM) Oxygen Saturation [94-100 %] 98 % (01/06/23 2:16 AM) 98 % (01/06/23 1:48 AM) 94 % (01/06/23 1:02 AM) Pulse Rate [55-90 bpm] 122 bpm *H* (01/06/23 2:16 AM) 148 bpm *H* (01/06/23 1:48 AM) 127 bpm *H* (01/06/23 1:02 AM) Body Mass Index [18.5-24.99 kg/m2] 51.99 kg/m2 *>HHI* (01/06/23 2:16 AM) 51.99 kg/m2 *>HHI* (01/06/23 1:48 AM) 51.99 kg/m2 *>HHI* (01/06/23 1:02 AM) Blood Pressure [90-138/55-84 mm Hg] 97/45mm Hg (01/06/23 2:16 AM) 101/46mm Hg (01/06/23 1:48 AM) 101/46mm Hg (01/06/23 1:02 AM) Respiratory Rate [16-30 br/min] 23 br/min (01/06/23 2:16 AM) 22 br/min (01/06/23 1:48 AM) 24 br/min (01/06/23 1:02 AM) Temperature [96.8-100.4 DegF] 97.7 DegF (01/06/23 1:48 AM) 98.3 DegF (01/05/23 10:45 PM) Liters per Minute 2 L/min (01/06/23 2:16 AM) 2 L/min (01/06/23 1:48 AM) Mode of Delivery (Oxygen) nasal cannula (01/06/23 2:16 AM) nasal cannula (01/06/23 1:48 AM) room air (01/06/23 1:02 AM) Blood pressure sites Arm, left (01/05/23 10:45 PM) Temperature Route Oral (01/06/23 1:48 AM) Oral (01/05/23 10:45 PM) Dry Weight 145 kg (01/06/23 2:16 AM) 145 kg (01/06/23 1:48 AM) 145 kg (01/06/23 1:02 AM) Weight Obtained Via Patient/family state d (01/05/23 10:45 PM) Dry Weight Obtained Via Patient/family s tated (01/05/23 10:45 PM) Social History Social History Type Response Smoking Status 10 or more cigarette s (1/2 pack or more)/day in last 30 days entered on: 09/07/18 Sex EKG study * Event Display: ECG 12-Lead Authored Date: [id number] Please click on pdf link to open report * Event Display: ECG 12-Lead Authored Date: [id number] Ventricular Rate: 135 BPM Atrial Rate: 135 BPM P-R Interval: 136 ms QRS Duration: 96 ms Q-T Interval: 296 ms QTC Calculation(Bazett): 444 ms P [place]: 49 degrees R [place]: 62 degrees T [place]: 19 degrees Sinus tachycardia Nonspecific T wave abnormality Abnormal ECG When compared with ECG of 05-JAN-2023 23:16, CO interval has increased Confirmed by SRAVANTHI MOON MD ([id number]) on 01/06/2023 11:34:54 AM [place]: SRAVANTHI MOON MD * Event Display: ECG 12-Lead Authored Date: [id number] Please click on pdf link to open report * Event Display: ECG 12-Lead Authored Date: [id number] Ventricular Rate: 150 BPM Atrial Rate: 150 BPM P-R Interval: 96 ms QRS Duration: 100 ms Q-T Interval: 344 ms QTC Calculation(Bazett): 543 ms R [place]: 67 degrees T [place]: 28 degrees Probable Sinus tachycardia Otherwise normal ECG When compared with ECG of 28-DEC-2022 11:44, Vent. rate has increased BY 64 BPM Confirmed by SRAVANTHI MOON MD ([id number]) on 01/06/2023 11:33:49 AM [place]: SRAVANTHI MOON MD Patient Care team information Care Team Personnel Name: Leah Almonte [facility] RN Member Role: Primary Care Nurse Name: Natasha Dickey RN [facility] RN Member Role: Primary Care Nurse Name: Genesis Lea RN Position[facility] RN Member Role: Primary Care Nurse Name: Nikki Hairston NP Position: [facility] PCO Associate Professional Member Role: PCP Address: Address: [address] [place] [address] Name: Alejandra Gilbert RN [facility] RN Member Role: Primary Care Nurse Name: Blaire Solis RN Position[facility] RN Member Role: Primary Care Nurse Name: Stefani Pinto RN Position[facility] RN Member Role: Primary Care Nurse Name: Melissa Stapleton RN Position: [facility] RN Member Role: Primary Care Nurse Name: Ligia Stapleton RN Position[facility] RN Member Role: Primary Care Nurse Name: Trinidad Ordonez RN Position[facility] RN Member Role: Primary Care Nurse Name: Mariaeelna Collazo RN [facility] RN Member Role: Primary Care Nurse Name: Nikki Croft RN Position[facility] RN Member Role: Primary Care Nurse Name: John Cuellar RN Position: [facility] RN Member Role: Primary Care Nurse Name: Christos Godoy RN Position: [facility] RN Member Role: Primary Care Nurse Name: Jeaneth Gordon RN Position: [facility] ED RN W/OE and Tasks Member Role: Patient Care Provider Name: Taty Horn RN Position: [facility] ED RN W/OE and Tasks Member Role: Patient Care Provider Name: Stewart Hirsch MD Position: [facility] ED Medicine MD Member Role: ED Attending Physician Address: Address: [address] [place] [address] [place] [address]- [place] Care Team Related Persons Name: SK[employer]ED NURSING [employer]LECTORY[employer]I Address: home [address] [place] [address] Name: YULIYA MORA Address: home [address] [place] [address] Name: SUNDAY MORA Address: [place] [address]
--- OUTSIDE RECORDS SUMMARY | 2023-06-07 19:09 | XMS_ITS | Continuity of Care Document ---
Author Organization [facility] Address [address] [place] [address]- Care Team Providers Care Residence Life Director Name Role Phone Katie RILEY, Narda Fonseca Primary Care Physici an Encounter [facility] [place] Date(s): 10/16/21 - 10/17/[address] [address]- Discharge Disposition: A-D/C Home Attending Physician: Parminder [...] Tablet 650 mg, Tablet, By Mouth, Every 8 hours, PRN for Pain , Moderate, STAT, 10/16/21 11:44:00 EDT Start Date: 10/16/21 Stop Date: 10/17/21 Status: Discontinued ARIPiprazole 20 mg oral tablet 1 tablet = 20 mg, By Mouth, Daily, # 30 tablet, 0 Refills, Maintenance, 09/15/21 12:18:00 EDT, Tablet, [id number], Partial fill upon patient request if the [...] oral capsule 600 mg, Capsule, By Mouth, 10/17/21 9:00:00 EDT Start Date: 10/17/21 Stop Date: 10/17/21 Status: Completed gabapentin 300 mg oral capsule 300 mg, Capsule, By Mouth, 10/16/21 21:00:00 EDT Start Date: 10/16/21 Stop Date: 10/16/21 Status: Completed HydrOXYzine HCL Tablet By Mouth, [...] 0 Refills, Maintenance, 09/15/21 12:17:00 EDT, Capsule, [facility]-[id number], Partial fill upon patient request if the [...] 0 Refills, Maintenance, 09/15/21 12:18:00 EDT, Tablet, [facility]-[id number], Partial fill upon patient request if the [...] opioid drug. Start Date: 09/29/21 Status: Ordered ondansetron 4 mg oral tablet, [...] 09/15/21 12:16:00 EDT, Route to Pharmacy Electronically, [facility]-[id number], Partial fill upon patient request if the [...] oldest [Reference Range]: 1 2 3 4 5 Height 167 cm (10/17/21 10:39 AM) 167 cm (10/16/21 8:26 PM) 167 cm (10/16/21 12:17 PM) Weight 145.2 kg (10/17/21 10:39 AM) 145.2 kg (10/16/21 8:26 PM) 145.2 kg (10/16/21 12:17 PM) Oxygen Saturation [94-100 %] 97 % (10/17/21 10:39 AM) 98 % (10/16/21 8:26 PM) 99 % (10/16/21 11:48 AM) Pulse Rate [55-90 bpm] 82 bpm (10/17/21 10:39 AM) 77 bpm (10/16/21 8:26 PM) 80 bpm (10/16/21 11:48 AM) Body Mass Index [18.5-24.99] 52.06 *>HHI* (10/17/21 10:39 AM) 52.06 *>HHI* (10/16/21 8:26 PM) 52.06 *>HHI* (10/16/21 11:48 AM) Blood Pressure [90-138/55-84 mm Hg] 105/69mm Hg (10/17/21 10:39 AM) 113/76mm Hg (10/16/21 8:26 PM) 125/76mm Hg (10/16/21 11:48 AM) Respiratory Rate [16-30 br/min] 16 br/min (10/17/21 10:39 AM) 16 br/min (10/17/21 9:31 AM) 16 br/min (10/17/21 1:30 AM) 16 br/min (10/17/21 1:30 AM) 16 br/min (10/17/21 1:30 AM) Temperature [96.8-100.4 DegF] 97.3 DegF (10/16/21 8:26 PM) 98.1 DegF (10/16/21 11:48 AM) Mode of Delivery (Oxygen) Room air (10/17/21 10:39 AM) Room air (10/16/21 8:26 PM) Room air (10/16/21 11:48 AM) Blood pressure sites Arm, right (10/17/21 10:39 AM) Arm, left (10/16/21 8:26 PM) Arm, left (10/16/21 11:48 AM) Temperature Route Temporal (10/16/21 8:26 PM) Temporal (10/16/21 11:48 AM) Dry Weight 145.2 kg (10/17/21 10:39 AM) 145.2 kg (10/16/21 8:26 PM) 145.2 kg (10/16/21 12:17 PM) Social History Social History Type Response Smoking Status 10 or more cigarette s (1/2 pack or more)/day in last 30 days entered on: 12/11/20 Sex Care Team Personnel Name: Narda Wilson NP Address: [address] [place] [address], [place] [address]- [place]
--- OUTSIDE RECORDS SUMMARY | 2023-06-07 19:09 | XMS_ITS | Continuity of Care Document ---
Author Organization [facility] Address [address] [place] [address]- Care Team Providers Care Warp Hanger Name Role Phone Katie RILEY, Narda Fonseca Primary Care Physici jamila [place] [facility] [place]04[place] - 11/04/[address] [address]- Encounter Diagnosis Flashbacks(Final) - 11/04/20 Discharge Disposition: A-D/C Home Attending Physician: Dalia Reddy DO Admitting Physician: Dalia Reddy DO Referring Physician: Not on Staff, Referring [...] 07/22/20 17:32:00 EDT, Route to Pharmacy Electronically, [facility]-, Partial fill upon patient request if the pres... Start Date: 07/22/20 Status: Ordered lithium 300 mg oral tablet, extended release 2 tablet = 600 mg, By Mouth, 2 times a day, # 360 tablet, 0 Refills, Maintenance, 11/01/20 22:11:00EDT, ER Tablet, Partial fill upon patient request if the prescription is for a schedule II opioid drug. Start Date: 11/01/20 Status: Ordered prazosin 2 mg oral capsule 1 capsule = 2 mg, By Mouth, Daily at bedtime, takes with 5 mg prazosin, # 30 capsule, 0 Refills, Maintenance, 04/22/20 14:44:00 EST, Capsule, [facility]-, Partial fill upon patient request if the prescription is for a schedule... Start Date: 04/22/20 Stop Date: 05/22/20 Status: Ordered prazosin 5 mg oral capsule 5 mg, 1, capsule, By Mouth, Daily at bedtime, # 30 capsule, Refills 0, Tot. Refills 0, Maintenance,04/22/20 14:44:00 EST, Route to Pharmacy Electronically, [facility]-, Partial fill upon patient request if [...] Range]: 1 2 3 Height 168 cm (11/04/20 2:38 AM) Weight 140.1 kg (11/04/20 2:38 AM) Oxygen Saturation [94-100 %] 96 % (11/04/20 6:31 AM) 97 % (11/04/20 2:38 AM) Pulse Rate [55-90 bpm] 87 bpm (11/04/20 6:31 AM) 105 bpm *H* (11/04/20 2:38 AM) Blood Pressure [90-138/55-84 mm Hg] 113/73mm Hg (11/04/20 6:31 AM) 143/83mm Hg *H* (11/04/20 2:38 AM) Respiratory Rate [16-30 br/min] 18 br/min (11/04/20 6:31 AM) 16 br/min (11/04/20 4:58 AM) 20 br/min (11/04/20 2:38 AM) Temperature [96.8-100.4 DegF] 98.7 DegF (11/04/20 6:31 AM) 98.8 DegF (11/04/20 2:38 AM) Mode of Delivery (Oxygen) Room air (11/04/20 6:31 AM) Room air (11/04/20 2:38 AM) Blood pressure sites Arm, left (11/04/20 6:31 AM) Arm, left (11/04/20 2:38 AM) Temperature Route Oral (11/04/20 6:31 AM) Oral (11/04/20 2:38 AM) Dry Weight 140.1 kg (11/04/20 2:38 AM) Dry Weight Obtained Via Standing scale (11/04/20 2:38 AM) Social History Social History Type Response Smoking Status 10 or more cigarette s (1/2 pack or more)/day in last 30 days entered on: 09/07/18 Sex
--- OUTSIDE RECORDS SUMMARY | 2023-06-07 19:09 | XMS_ITS | Continuity of Care Document ---
Author Organization [facility] Address [address] [place] [address]- Care Team Providers Care Hop Farmer Name Role Phone Katie RILEY, Narda Marian Primary Care Physici an Encounter [facility] [place] Date(s): 11/01/20 - 11/02/20 [facility] [address] [place] [address]- Discharge Disposition: A-D/C Home Attending Physician: Carter [...] 07/22/20 17:32:00 EDT, Route to Pharmacy Electronically, [facility]-, Partial fill upon patient request if [...] oral capsule 7 mg, Capsule, By Mouth, 11/01/20 23:21:00 EDT Start Date: 11/01/20 Stop Date: 11/01/20 Status: Completed prazosin 2 mg oral capsule 1 capsule = 2 mg, By Mouth, Daily at bedtime, takes with 5 mg prazosin, # 30 capsule, 0 Refills, Maintenance, 04/22/20 14:44:00 EST, Capsule, [facility]-, Partial fill upon patient request if the prescription is for a schedule... Start Date: 04/22/20 Stop Date: 05/22/20 Status: Ordered prazosin 5 mg oral capsule 5 mg, 1, capsule, By Mouth, Daily at bedtime, # 30 capsule, Refills 0, Tot. Refills 0, Maintenance,04/22/20 14:44:00 EST, Route to Pharmacy Electronically, [facility]-, Partial fill upon patient request if [...] Range]: 1 2 3 Height 167 cm (11/02/20 2:24 AM) 167 cm (11/01/20 7:25 PM) Weight 138.3 kg (11/02/20 2:24 AM) 138.3 kg (11/01/20 7:25 PM) Oxygen Saturation [94-100 %] 97 % (11/02/20 2:24 AM) 98 % (11/01/20 11:28 PM) 98 % (11/01/20 7:25 PM) Pulse Rate [55-90 bpm] 77 bpm (11/02/20 2:24 AM) 88 bpm (11/01/20 11:28 PM) 113 bpm *H* (11/01/20 7:25 PM) Body Mass Index [18.5-24.99] 49.59 *>HHI* (11/02/20 2:24 AM) Blood Pressure [90-138/55-84 mm Hg] 101/70mm Hg (11/02/20 2:24 AM) 103/70mm Hg (11/01/20 11:28 PM) 103/71mm Hg (11/01/20 11:21 PM) Respiratory Rate [16-30 br/min] 16 br/min (11/02/20 2:24 AM) 16 br/min (11/01/20 11:28 PM) 20 br/min (11/01/20 7:25 PM) Temperature [96.8-100.4 DegF] 100.2 DegF (11/01/20 7:25 PM) Mode of Delivery (Oxygen) room air (11/02/20 2:24 AM) Room air (11/01/20 11:28 PM) Room air (11/01/20 7:25 PM) Temperature Route Oral (11/01/20 7:25 PM) Dry Weight 138.3 kg (11/02/20 2:24 AM) 138.3 kg (11/01/20 7:25 PM) Weight Obtained Via Standing scale (11/01/20 7:25 PM) Social History Social History Type Response Smoking Status 10 or more cigarette s (1/2 pack or more)/day in last 30 days entered on: 09/07/18 Sex
--- OUTSIDE RECORDS SUMMARY | 2023-06-07 19:09 | XMS_ITS | Continuity of Care Document ---
Author Organization [facility] Address [address] [place] [address]- Care Team Providers Care Rodding Machine Tender Name Role Phone Yovanny RILEY, Nikki Primary Care Physician [phone] [place]counter [facility] [place](s): 05/02/23 - 05/02/[address] [address]- Discharge Disposition: A-D/C Home Attending Physician: Irwin Bowens MD Admitting Physician: Irwin Bowens MD Referring Physician: Not on Staff, Referring [...] 0 Refills, Maintenance, 04/03/23 8:17:00 EST, Tablet, [facility]-[id number], Partial fill upon patient request if the prescription is for a schedule II opioid drug., 167, cm, 04/02/23 20:... Start Date: 04/03/23 Status: Ordered duloxetine 60 mg oral enteric coated capsule = 60 mg, By Mouth, Daily, # 30 capsule, 0 Refills, Maintenance, 04/03/23 8:17:00 EST, Capsule, [facility]-[id number], Partial fill upon patient request if the prescription is for a schedule II opioid drug., 167, cm, 04/02/23 20:16:00 EST,... Start Date: 04/03/23 Status: Ordered haloperidol 5 mg oral tablet 5 mg, By Mouth, Daily, # 30 tablet, Refills 0, Tot. Refills 0, Maintenance, 04/03/23 8:19:00 EST, [id number] Partial fill upon patient request if the prescription is for a schedule II opioid d... Start Date: 04/03/23 Status: Ordered haloperidol 5 mg oral tablet 5 mg, By Mouth, 2 times a day, PRN, # 60 tablet, Refills 0, Tot. Refills 0, Maintenance, Anxiety, 04/03/23 8:20:00 EST, [id number] Partial fill upon patient request if the [...] Refills, Maintenance, 04/03/23 8:17:00 EST, ER Tablet, [facility]-[id number], Partial fill upon patient request if the [...] 04/03/23 8:18:00 EST, Route to Pharmacy Electronically, [facility]-[id number], Partial fill upon patient request if the prescription is for a schedule... Start Date: 04/03/23 Status: Ordered topiramate 50 mg oral tablet = 150 mg, By Mouth, Daily at bedtime, # 90 tablet, 0 Refills, Maintenance, 04/03/23 8:18:00 EST, Tablet, [facility]-[id number], Partial fill upon patient request if the prescription is for a schedule II opioid drug., 167, cm, 04/02/23 20:... Start Date: 04/03/23 Status: Ordered traZODone 50 mg oral tablet 50 mg, By Mouth, Daily at bedtime, PRN, # 30 tablet, Refills 0, Tot. Refills 0, Maintenance, Sleep,04/03/23 8:19:00 EST, Route to Pharmacy Electronically, [facility]-[id number], Partialfill upon patient request if the prescription [...] Exam Date Time Procedure Performing Provider Status 05/02/23 5:53 PM Chest 2 Views Frontal and Lat Gabo Saeed; Mattie (Verified) Notes: (Chest 2 Views Frontal and Lat) Reason For Exam: Chest pain;Other: RESULT: Chest 2 Views Frontal and Lat Chest 2 Views Frontal and Lat Hx of Present Illness: CP with onset 2 days ago w muscle and joint pain. Referred by PCP. Hx of similar presentations, scheduled to see cardiology; Reason: Other:; Chest pain; Clinical Question(s): Pneumonia COMPARISON: None. FINDINGS: LINES AND TUBES: None. LUNGS AND PLEURA: Clear lungs. Normal pulmonary vascularity. No pleural effusion. No pneumothorax. HEART, MEDIASTINUM AND JOAQUIN: Heart is normal in size. Normal mediastinal and hilar contour. BONES AND SOFT TISSUES: No acute abnormality. IMPRESSION: No acute abnormality. WSN: [id number] Ordering Physician: Irwin Bowens Dictated By: Javier Blackwell MD Dictated Date/Time: 05/02/23 6:02 pm Reviewed By: Javier Blackwell MD Signed By: Javier Blackwell MD Signed Date/Time: 05/02/23 6:02 pm Transcribed By: DEJON Transcribed Date/Time: 05/02/23 6:02 pm Vital Signs Most recent to oldest [Reference Range]: 1 2 Height 167 cm (05/02/23 4:38 PM) 167 cm (05/02/23 4:35 PM) Weight 142 kg (05/02/23 4:38 PM) 142 kg (05/02/23 4:35 PM) Oxygen Saturation [94-100 %] 99 % (05/02/23 4:35 PM) Pulse Rate [55-90 bpm] 116 bpm *H* (05/02/23 4:35 PM) Body Mass Index [18.5-24.99 kg/m2] 50.92 kg/m2 *>HHI* (05/02/23 4:35 PM) Blood Pressure [90-138/55-84 mm Hg] 140/ 79mm Hg *H* (05/02/23 4:35 PM) Respiratory Rate [16-30 br/min] 18 br/mi n (05/02/23 4:35 PM) Temperature [96.8-100.4 DegF] 97.8 DegF (05/02/23 4:35 PM) Mode of Delivery (Oxygen) Room air (05/02/23 4:35 PM) Dry Weight 142 kg (05/02/23 4:38 PM) 142 kg (05/02/23 4:35 PM) Social History Social History Type Response Smoking Status 10 or more cigarette s (1/2 pack or more)/day in last 30 days entered on: 09/07/18 Sex EKG study * Event Display: ECG 12-Lead Authored Date: Please click on pdf link to open report * Event Display: ECG 12-Lead Authored Date: Ventricular Rate: 102 BPM Atrial Rate: 102 BPM P-R Interval: 184 ms QRS Duration: 88 ms Q-T Interval: 324 ms QTC Calculation(Bazett): 422 ms P [place]: 57 degrees R [place]: 43 degrees T [place]: 33 degrees Sinus tachycardia Otherwise normal ECG When compared with ECG of 22-APR-2023 17:51, No significant change was found Confirmed by Bharat Wooten ([id number]) on 05/02/2023 9:53:11 PM [place]: Bharat Wooten Patient Care team information Care Team Personnel Name: Garcia Baez RN Position: [facility] RN Member Role: Primary Care Nurse Name: Diamond Mancini RN Position: [facility] RN Member Role: Primary Care Nurse Name: Leah Almonte RN Position: [facility] RN Member Role: Primary Care Nurse Name: Natasha Dickey RN Position: [facility] RN Member Role: Primary Care Nurse Name: Kellee Garvin RN Position: S RN Member Role: Primary Care Nurse Name: Maegan Diaz RN Position: [facility] RN Member Role: Primary Care Nurse Name: Genesis Lea RN Position: [facility] RN Member Role: Primary Care Nurse Name: Nikki Hairston NP Position: [facility] PCO Associate Professional Member Role: PCP Address: Address: [address] [place] [id number]- [place] Name: Alejandra Gilbert RN Position: S RN Member Role: Primary Care Nurse Name: Zara Colon RN Position: [facility] RN Supv Member Role: Primary Care Nurse Name: Stefani Pinto RN Position: [facility] RN Member Role: Primary Care Nurse Name: Araceli Quevedo RN Position: [facility] RN Member Role: Primary Care Nurse Name: Fatoumata Loyd RN Position: [facility] RN Member Role: Primary Care Nurse Name: Melissa Stapleton RN Position: [facility] RN Member Role: Primary Care Nurse Name: Ligia Stapleton RN Position: [facility] RN Member Role: Primary Care Nurse Name: Melissa Davison RN Position: [facility] RN Member Role: Primary Care Nurse Name: Trinidad Ordonez RN Position: [facility] RN Member Role: Primary Care Nurse Name: Mariaelena Collazo RN Position: [facility] RN Member Role: Primary Care Nurse Name: Beatrice Pisano RN Position: [facility] RN Member Role: Primary Care Nurse Name: Shankar Man Position: [facility] RN Member Role: Primary Care Nurse Name: Nikki Croft RN Position: [facility] RN Member Role: Primary Care Nurse Name: John Cuellar RN Position: [facility] RN Member Role: Primary Care Nurse Name: Christos Godoy RN Position: [facility] RN Member Role: Primary Care Nurse Care Team Related Persons Name: [employer] GLOVE PRESSERYENI Address: home [address] [place] [address] Name: YULIYA MORA Address: home [address] [place] [address] Name: SUNDAY MORA Address: [place] [address]
--- OUTSIDE RECORDS SUMMARY | 2023-06-07 19:09 | XMS_ITS | Continuity of Care Document ---
Author Organization [facility] Address [address] [place] [address]- Care Team Providers Care Nurse Special Name Role Phone Katie RILEY, Narda Fonseca Primary Care Physicclaudia an Encounter [facility] [place] Date(s): 07/09/22 - 07/09/[address] [address]- Encounter Diagnosis Laceration of arm(Final) - 07/09/22 Depression(Final) - 07/09/22 Discharge Disposition: A-D/C Home Attending Physician: Orlando Valiente DO Admitting Physician: Orlando Valiente DO Referring Physician: Not on Staff, Referring [...] 0 Refills, Maintenance, 01/24/22 9:26:00 EST, [facility] upon patient request if the prescription is for a schedule II opioid drug., Topically 2... Start Date: 01/24/22 Status: Ordered ARIPiprazole 10 mg oral tablet 20 mg, 2, tablet, By Mouth, Daily, # 60 tablet, Refills 0, Tot. Refills 0, Maintenance, 01/24/22 9:25:00 EST, Route to Pharmacy Electronically, [facility], Partial fill upon patient request if the prescription is for a schedul... Start Date: 01/24/22 Status: Ordered benztropine 1 mg oral tablet 1 mg, 1, tablet, By Mouth, Every 6 hours, PRN, PRN for extrapyramidal symptoms, # 60 tablet, Refills 0, Tot. Refills 0, Maintenance, Other, 01/24/22 9:26:00 EST, Route to Pharmacy Electronically, [facility], Partial fill upon... Start Date: 01/24/22 Status: Ordered diphenhydrAMINE 25 mg oral tablet 2 tablet = 50 mg, By Mouth, 3 times a day, PRN Agitation, to be given with haldol only, # 60 tablet, 0 Refills, Maintenance, 01/24/22 9:26:00 EST, Tablet, [facility], Partialfill upon patient request if the prescription is fo... Start Date: 01/24/22 Status: Ordered gabapentin 300 mg oral capsule 600 mg, 2, capsule, By Mouth, 3 times a day, # 180 capsule, Refills 0, Tot. Refills 0, Maintenance,01/24/22 9:26:00 EST, Route to Pharmacy Electronically, [facility], Partial fill upon patient request if the prescription is f... Start Date: 01/24/22 Status: Ordered haloperidol 5 mg oral tablet 5 mg, 1, tablet, By Mouth, Every 4 hours, PRN, to be given with diphenhydramine, # 60 tablet, Refills 0, Tot. Refills 0, Maintenance, Agitation, 01/24/22 9:26:00 EST, Route to Pharmacy Electronically, [facility], Partial fill... Start Date: 01/24/22 Status: Ordered hydrOXYzine pamoate 25 mg oral capsule 2 capsule = 50 mg, By Mouth, 4 times a day, PRN Anxiety, # 90 capsule, 0 Refills, Maintenance, 01/24/22 9:26:00 EST, Capsule, [facility]-, Partial fill upon patient request ifthe prescription is for a schedule II opioid drug.,... Start Date: 01/24/22 Status: Ordered lithium 600 mg oral capsule = 600 mg, By Mouth, 2 times a day, # 60 capsule, 0 Refills, Maintenance, 01/24/22 9:27:00 EST, Capsule, [facility], Partial fill upon patient request if the prescription is for a schedule II opioid drug., 168, cm, 01/24/22 7:2... Start Date: 01/24/22 Status: Ordered methylphenidate 54 mg oral tablet, extended release 1 tablet = 54 mg, By Mouth, Daily, # 30 tablet, 0 Refills, Maintenance, 01/24/22 9:27:00 EST, ER Tablet, [facility], Partial fill upon patient request if the prescription is for a schedule II opioid drug., 168, cm, 01/24/22 7:... Start Date: 01/24/22 Status: Ordered ondansetron 4 mg oral tablet, disintegrating = 4 mg, By Mouth, Every 6 hours, PRN Nausea & Vomiting, # 30 capsule, 0 Refills, Maintenance, 01/24/22 9:27:00 EST, Tablet, [facility], Partial fill upon patient request if the prescription is for a schedule II opioid drug., 1... Start Date: 01/24/22 Status: Ordered prazosin 2 mg oral capsule 1 capsule = 2 mg, By Mouth, Daily at bedtime, # 30 capsule, 0 Refills, Maintenance, 01/24/22 9:27:00 EST, Capsule, [facility], Partial fill upon patient request if the prescription is for a schedule II opioid drug., 168, cm, 1... Start Date: 01/24/22 Status: Ordered PROzac 20 mg oral capsule 40 mg, 2, capsule, By Mouth, Daily, # 60 capsule, Refills 0, Tot. Refills 0, Maintenance, 01/24/22 9:26:00 EST, Route to Pharmacy Electronically, [facility]-, Partial fill upon patient request [...] [Reference Range]: 1 2 Height 168 cm (07/09/22 2:58 AM) 168 cm (07/09/22 12:13 AM) Weight 145 kg (07/09/22 2:58 AM) 145 kg (07/09/22 12:13 AM) Oxygen Saturation [94-100 %] 98 % (07/09/22 2:58 AM) 99 % (07/09/22 12:13 AM) Pulse Rate [55-90 bpm] 100 bpm *H* (07/09/22 2:58 AM) 115 bpm *H* (07/09/22 12:13 AM) Body Mass Index [18.5-24.99 kg/m2] 51.37 kg/m2 *>HHI* (07/09/22 2:58 AM) Blood Pressure [90-138/55-84 mm Hg] 137/ 76mm Hg (07/09/22 2:58 AM) 127/96mm Hg (07/09/22 12:13 AM) Respiratory Rate [16-30 br/min] 18 br/mi n (07/09/22 2:58 AM) 20 br/min (07/09/22 12:13 AM) Temperature [96.8-100.4 DegF] 97.9 DegF (07/09/22 12:13 AM) Mode of Delivery (Oxygen) Room air (07/09/22 2:58 AM) Room air (07/09/22 12:13 AM) Blood pressure sites Arm, right (07/09/22 2:58 AM) Arm, right (07/09/22 12:13 AM) Temperature Route Oral (07/09/22 12:13 AM) Dry Weight 145 kg (07/09/22 2:58 AM) 145 kg (07/09/22 12:13 AM) Social History Social History Type Response Smoking Status 10 or more cigarette s (1/2 pack or more)/day in last 30 days entered on: 12/11/20 Sex Note * Orlando Valiente DO: PERFORM, SIGN, VERIFY Event Display: Patient Education Handout Authored Date: [id number] Patient Care team information Care Team Personnel Name: Natasha iDckey RN Position: [facility] RN Member Role: Primary Care Nurse Name: Blaire Solis RN Position: [facility] RN Member Role: Primary Care Nurse Name: Stefani Pinto RN Position: [facility] RN Member Role: Primary Care Nurse Name: Melissa Stapleton RN Position: [facility] RN Member Role: Primary Care Nurse Name: Ligia Stapleton RN Position: [facility] RN Member Role: Primary Care Nurse Name: Narda Wilson NP Position: Reference Physician Member Role: PCP Address: Address: [address] [place] [address]- Name: Mariaelena Collazo RN Position: [facility] RN Member Role: Primary Care Nurse Name: Nikki Croft RN Position: [facility] RN Supv Member Role: Primary Care Nurse Name: John Cuellar RN Position: [facility] RN Member Role: Primary Care Nurse Name: Rivas Bhakta RN Position: [facility] ED RN W/OE and Tasks Member Role: Patient Care Provider Name: Orlando Valiente DO Position: [facility] ED Medicine MD Member Role: ED Attending Physician Address: Address: [address] [place] [address]- Care Team Related Persons 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
--- OUTSIDE RECORDS SUMMARY | 2023-06-07 19:09 | XMS_ITS | Continuity of Care Document ---
Author Organization [facility] Address [address] [facility] [place] [address]- Care Team Providers Care System Engineer Name Role Phone Nikki Hairston NP Primary Care Physician [place] [facility] [place] Date(s): 02/08/23 - 03/30/23 [facility] [address]- Attending Physician: Seb Vee MD Admitting Physician: Seb Vee MD Referring Physician: Nikki Hairston NP Allergies, Adverse Reactions, Alerts Substance Reaction Severity Status Geodon full body tremors Active Thorazine Skin rash Active Trileptal Active Immunizations Given and Recorded Vaccine Date Status Refusal Reason influenza virus vaccine, inactivated 12/17/21 Give n influenza virus vaccine, inactivated 11/11/20 Give n tetanus/diphtheria/pertussis, acel(Tdap) 10/19/21 Given tetanus/diphtheria/pertussis, acel(Tdap) 12/22/19 Given SARS-CoV-2 (COVID-19) mRNA-1273 vaccine 01/25/21 R ecorded SARS-CoV-2 (COVID-19) mRNA BNT-162b2 vac 04/13/20 Recorded SARS-CoV-2 (COVID-19) mRNA BNT-162b2 vac 03/02/20 Recorded Medications Concerta = 27 mg, By Mouth, Daily in AM, 0 Refills, Maintenance, 03/15/23 15:47:00 EST, Partial fill upon patient request if the prescription is for a schedule II opioid drug. Start Date: 03/15/23 Status: Ordered Cymbalta 30 mg oral enteric coated capsule 1 capsule = 30 mg, By Mouth, Daily, 0 Refills, Maintenance, 03/15/23 15:47:00 EST, Partial fill upon patient request if the prescription is for a schedule II opioid drug. Start Date: 03/15/23 Status: Ordered desmopressin 0.2 mg oral tablet 2 tablet = 0.4 mg, By Mouth, Daily at bedtime, 0 Refills, Maintenance, 03/15/23 15:48:00 EST, Partial fill upon patient request if the prescription is for a schedule II opioid drug. Start Date: 03/15/23 Status: Ordered Gabapentin = 300 mg, By Mouth, Daily in AM, 0 Refills, Maintenance, 03/15/23 15:48:00 EST, Partial fill upon patient request if the prescription is for a schedule II opioid drug. Start Date: 03/15/23 Status: Ordered Gabapentin = 600 mg, By Mouth, Daily at bedtime, 0 Refills, Maintenance, 03/15/23 15:49:00 EST, Partial fill upon patient request if the prescription is for a schedule II opioid drug. Start Date: 03/15/23 Status: Ordered LaMICtal 25 mg oral tablet 75 mg, 3, tablet, By Mouth, Daily in AM, Refills 0, Maintenance, 03/15/23 15:51:00 EST, Partial fill upon patient request if the prescription is for a schedule II opioid drug. Start Date: 03/15/23 Status: Ordered Prazosin = 2 mg, By Mouth, Daily at bedtime, 0 Refills, Maintenance, 03/15/23 15:50:00 EST, Partial fill upon patient request if the prescription is for a schedule II opioid drug. Start Date: 03/15/23 Status: Ordered Topamax 25 mg oral tablet 1 tablet = 25 mg, By Mouth, Daily at bedtime, 0 Refills, Maintenance, 03/15/23 15:49:00 EST, Partial fill upon patient request if the prescription is for a schedule II opioid drug. Start Date: 03/15/23 Status: Ordered Problem List Condition Confirmation Course [...] obesity Confirmed Active Tobacco dependence Confirmed Active Social History Social History Type Response Smoking Status 10 or more cigarette s (1/2 pack or more)/day in last 30 days entered on: 09/07/18 Sex Patient Care team information Care Team Personnel Name: Garcia Baez RN Position: [facility] RN Member Role: Primary Care Nurse Name: Diamond Mancini RN Position: [facility] SN RN Member Role: Primary Care Nurse Name: Leah Almonte RN Position: [facility] RN Member Role: Primary Care Nurse Name: Natasha Dickey RN Position: [facility] RN Member Role: Primary Care Nurse Name: Kellee Garvin RN Position: [facility] RN Member Role: Primary Care Nurse Name: Maegan Diaz RN Position: [facility] RN Member Role: Primary Care Nurse Name: Genesis Lea RN Position: [facility] RN Member Role: Primary Care Nurse Name: Nikki Hairston NP Position: [facility] PCO Associate Professional Member Role: PCP Address: Address: [address] [place] [address] Name: Alejandra Gilbert RN Position: [facility] RN Member Role: Primary Care Nurse Name: Zara Colon RN Position: [facility] RN Supv Member Role: Primary Care Nurse Name: Stefani Pinto RN Position: [facility] RN Member Role: Primary Care Nurse Name: Araceli Quevedo RN Position: [facility] RN Member Role: Primary Care Nurse Name: Fatoumata Lody RN Position: [facility] RN Member Role: Primary Care Nurse Name: Melissa Stapleton RN Position: [facility] RN Member Role: Primary Care Nurse Name: Ligia Stapleton RN Position: [facility] RN Member Role: Primary Care Nurse Name: Melissa Davison RN Position: [facility] OB RN Member Role: Primary Care Nurse Name: Trinidad Ordonez RN Position: [facility] RN Member Role: Primary Care Nurse Name: Mariaelena Collazo RN Position: [facility] RN Member Role: Primary Care Nurse Name: Beatrice Pisano RN Position: [facility] RN Member Role: Primary Care Nurse Name: Shankar Man Position: [facility] RN Member Role: Primary Care Nurse Name: Nikki Croft RN Position: [facility] RN Member Role: Primary Care Nurse Name: John Cuellar RN Position: [facility] RN Member Role: Primary Care Nurse Name: Christos Godoy RN Position: [facility] RN Member Role: Primary Care Nurse Care Team Related Persons Name: [employer] ASSESSORY[employer]I Address: home [address] [place] [address] Name: YULIYA MORA Address: home [address] [place] [address] Name: SUNDAY [place]A Address: [place] [address]
--- OUTSIDE RECORDS SUMMARY | 2023-06-07 19:09 | XMS_ITS | Continuity of Care Document ---
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 oral enteric coated capsule)?1?capsule?30?Milligram?By Mouth?Daily?for 7?Days Folic Acid (folic acid 1 mg oral tablet)?1?Milligram?1?tablet?By Mouth?Daily?for 7?Days Lidocaine Topical (lidocaine 5% topical film)?See Instructions?1 patch Topically Daily Nicotine (nicotine 21 mg-14 mg-7 mg transdermal film, extended release)?See Instructions?place one patch on left arm daily Prazosin (prazosin 1 mg oral capsule)?1?Milligram?1?capsule?By Mouth?Daily at bedtime?for 7?Days Pyridoxine (pyridoxine 50 mg oral tablet)?50?Milligram?1?tablet?By Mouth?Daily?for 7?Days Topiramate (topiramate 25 mg oral tablet)?1?tab(s)?25?Milligram?By Mouth?Daily?for 7?Days ? Inpatient Medications Medications (9) Active SCHEDULED: (2) Nicotine 21 mg / 24 hour Patch (Nicotine Topical) ??21 mg, Topically, Daily Remove Patch (Remove ??Patch) ??1 each, Topically, Daily CONTINUOUS: (0) PRN: (7) Acetaminophen 325 mg Tablet (Acetaminophen Tablet) ??650 mg, By Mouth, Every 4 hours Al hydroxide/Mg hydroxide/simethicone 200 mg-200 mg-20 mg/5 mL Susp UD (Maalox Plus Liquid) ??30 mL, By Mouth, Every 4 hours Chloraseptic Lozenge ??1 lozenge, By Mouth, Every 3 hours Guaifenesin 200mg/10mL Syrup UD (GuaiFENEsin Liquid) ??200 mg 10 mL, By Mouth, Every 4 hours Ibuprofen 400 mg Tablet (Ibuprofen Tablet) ??400 mg, By Mouth, Every 6 hours Magnesium Hydroxide 8% Susp UD (Milk of Magnesia Liquid) ??30 mL, By Mouth, Daily at bedtime Nicotine 2 mg Gum (Nicotine Gum) ??2 mg, Chew, Every 15 minutes ? Results Recent Labs TOXICOLOGY/TDM Barbiturate Screen, Urine NONE DETECTED ()?? 01/18/2023 22:01 Cannabinoid Screen, Urine NONE DETECTED ()?? 01/18/2023 22:01 Cocaine Metabolite Screen, Urine NONE DETECTED ()?? 01/18/2023 22:01 Benzodiazepine Screen, Urine NONE DETECTED ()?? 01/18/2023 22:01 Amphetamine Screen, Urine NONE DETECTED ()?? 01/18/2023 22:01 Opiate Screen, Urine NONE DETECTED ()?? 01/18/2023 22:01 ?? UA/URINALYSIS Appear/Color, Urine YELLOW ()?? 01/18/2023 22:01 Clarity CLEAR (N)?? 01/18/2023 22:01 Specific [place], Urine 1.025 ()?? 01/18/2023 22:01 pH, Urine 6.0 ()?? 01/18/2023 22:01 Albumin, Urine NEGATIVE (N)?? 01/18/2023 22:01 Glucose, Urine NEGATIVE (N)?? 01/18/2023 22:01 Ketones, Urine NEGATIVE (N)?? 01/18/2023 22:01 Bilirubin, Urine NEGATIVE (N)?? 01/18/2023 22:01 Hemoglobin, Urine NEGATIVE (N)?? 01/18/2023 22:01 Nitrite, Urine NEGATIVE (N)?? 01/18/2023 22:01 Leukocyte, Urine NEGATIVE (N)?? 01/18/2023 22:01 Urobilinogen NORMAL mg/dL (N)?? 01/18/2023 22:01 Hold Urine Culture Testing available 48 hours from time of collection. ()?? 01/18/2023 22:01 ?? VIROLOGY Influenza A PCR NEGATIVE ()?? 01/19/2023 07:41 Influenza B PCR NEGATIVE ()?? 01/19/2023 07:41 RSV PCR NEGATIVE ()?? 01/19/2023 07:41 COVID-19 PCR Specimen Source NASAL ()?? 01/19/2023 07:41 COVID-19 PCR Result NEGATIVE ()?? 01/19/2023 07:41 ? Urinalysis Albumin, Urine: NEGATIVE (22:01) Appear/Color, Urine: YELLOW (22:01) Bilirubin, Urine: NEGATIVE (22:01) Clarity: CLEAR (22:01) Glucose, Urine: NEGATIVE (22:01) Hemoglobin, Urine: NEGATIVE (22:01) Hold Urine Culture: Testing available 48 hours from time of collection. (22:01) Ketones, Urine: NEGATIVE (22:01) Leukocyte, Urine: NEGATIVE (22:01) Nitrite, Urine: NEGATIVE (22:01) pH, Urine: 6 (22:01) Specific [place], Urine: 1.025 (22:01) Urobilinogen: NORMAL (22:01) ? Note * Mely Babcock RN: PERFORM, SIGN, VERIFY Event Display: Discharge/Transfer Note Hospital Authored Date: [id number] Patient: IDRIS MORA Age: 22 years Sex: Female : 2000 Associated Diagnoses: None Author: Mely Babcock RN - I certify that this patient is under my care and that I or an an allowed non- physician practitionerworking with me, had a [id number] encounter with the patient on this date: 01/30/2023. Nursing: Medication management (reconciliation, teaching), Home safety evaluation. Physician Signature: Annmarie Balderas MD . * Annmarie Balderas MD: PERFORM, MODIFY Event Display: Discharge/Transfer Note Hospital Authored Date: Patient: ??IDRIS MORA ? Age:??22 Years?Sex:??Female?:??2000?? Patient Information Discharge Location: U Primary Care Physician: Wiley RILEY, Anupama Arriaga Admit Date/Time: 01/19/23 10:29 Discharge Disposition Discharge Disposition: Home Discharge Diagnosis ?? Mood disorder Morbid obesity (E66.01) Personality disorder (F60.9) ? _ Discharge Medications Duloxetine (duloxetine 30 mg oral enteric coated capsule)?1?capsule?30?Milligram?By Mouth?Daily? Folic Acid (folic acid 1 mg oral Prazosin (prazosin 1 mg oral capsule)?1?Milligram?1?capsule?By Mouth at bedtime? Topiramate (topiramate 25 mg oral tablet)?1?tab(s)?25?Milligram?By Mouth?Daily? Concerta 27 mg daily ??Tamiflu 75 mg daily for 4 days Quality Measures Tobacco Use Treatment:? Screening for Metabolic Disorders:?Lipid Panel:??Has Results for Lipid Panel within the last 12 months ? Medications Started Concerta Medications Discontinued none Hospital Course Patient was admitted to Mental Health Unit. They were placed on one to one observation immediately due to history of self injury and ongoing urges to self harm. They presented as acutely distressed,unable to verbalize about their distress and engaged in head banging requiring staff intervention. After a few days, they were able to recover from this behavior, becoming more engaged, attending groups etc. They enjoyed singing in particular and reported that it was therapeutic. It was noted that many of their medications had been reduced following a recent overdose. They asked to resume Concerta which was started at a lower dose. They spoke positively of the upcoming holidays and asked to work o n a discharge plan. They were able to stop one to one observation without difficulty. Arrangements were made for visiting nurse to supervise medications. They continued to show signs of improvement and were released to outpatient care. While in hospital there was a flu exposure on the MHU. The patient was asymptomatic and was advised to take prophylactic medication for a total of 5 days. Objective Assessment and Plan ? Vital Signs?? Temperature: 97.9 DegF (01/29/23 21:21:00) Temperature Route: Temporal (01/29/23 21:21:00) Pulse Rate: 88 bpm (01/29/23 21:21:00) Respiratory Rate: 18 br/min (01/29/23 21:21:00) Systolic Blood Pressure: 128 mm Hg (01/29/23 21:21:00) Diastolic Blood Pressure: 79 mm Hg (01/29/23 21:21:00) Blood pressure sites: Arm, right (01/29/23 21:21:00) Mean Arterial Pressure: 95 mm Hg (01/29/23 21:21:00) Pulse Pressure: 49 mm Hg (01/29/23 21:21:00) Oxygen Saturation: 99 % (01/29/23:21:00) Mode of Delivery (Oxygen): Room air (01/29/23:21:00) ? . Physical Exam Appearance?? neatly groomed Relatedness?? cooperative and pleasant Organization?? coherent Though content no evidence of psychosis Hallucinations?? none noted Mood?? improved Affect?? brighter Memory grossly intact Orientation? okay Suicidal thinking?? denies currently Homicidal thinking?? denies Insight/Judgement?? fair ?? Pending Results No Pending Results Home Health Face to Face ^HomeHealthFTF Results Discharge Labs TOXICOLOGY/TDM Barbiturate Screen, Urine NONE DETECTED ()?? 01/18/2023 22:01 Cannabinoid Screen, Urine NONE DETECTED ()?? 01/18/2023 22:01 Cocaine Metabolite Screen, Urine NONE DETECTED ()?? 01/18/2023 22:01 Benzodiazepine Screen, Urine NONE DETECTED ()?? 01/18/2023 22:01 Amphetamine Screen, Urine NONE DETECTED ()?? 01/18/2023 22:01 Opiate Screen, Urine NONE DETECTED ()?? 01/18/2023 22:01 ?? UA/URINALYSIS Appear/Color, Urine YELLOW ()?? 01/18/2023 22:01 Clarity CLEAR (N)?? 01/18/2023 22:01 Specific [place], Urine 1.025 ()?? 01/18/2023 22:01 pH, Urine 6.0 ()?? 01/18/2023 22:01 Albumin, Urine NEGATIVE (N)?? 01/18/2023 22:01 Glucose, Urine NEGATIVE (N)?? 01/18/2023 22:01 Ketones, Urine NEGATIVE (N)?? 01/18/2023 22:01 Bilirubin, Urine NEGATIVE (N)?? 01/18/2023 22:01 Hemoglobin, Urine NEGATIVE (N)?? 01/18/2023 22:01 Nitrite, Urine NEGATIVE (N)?? 01/18/2023 22:01 Leukocyte, Urine NEGATIVE (N)?? 01/18/2023 22:01 Urobilinogen NORMAL mg/dL (N)?? 01/18/2023 22:01 Hold Urine Culture Testing available 48 hours from time of collection. ()?? 01/18/2023 22:01 ? VIROLOGY Influenza A PCR NEGATIVE ()?? 01/29/2023 10:52 Influenza B PCR NEGATIVE ()?? 01/29/2023 10:52 RSV PCR NEGATIVE ()?? 01/29/2023 10:52 COVID-19 PCR Specimen Source NASAL ()?? 01/29/2023 10:52 COVID-19 PCR Result NEGATIVE ()?? 01/29/2023 10:52 ? 25_ minutes spent on discharge * Barbie Griffith: PERFORM Event Display: Discharge/Transfer Note Hospital Authored Date: [id number] Psychiatric Discharge Plan Entered On: 01/30/2023 6:47 EST Performed On: 01/30/2023 6:45 EST by Barbie Griffith Discharge Plan Level of Care at Discharge : Home/Family/SelfCare/RestHome/Usp/Sub AbuseTx (AHR) Discharge Plan Additional Information : You are being discharged back home. Transportation Arranged : Service Net Mode of Transportation : Other Arranged Transport Date/Time : 01/30/2023 11:00 EST Barbie Griffith - 01/30/2023 6:45 EST Crisis Services Psychiatric Crisis Services : For your area are available 24 hours every day, by calling: Crisis Services : [facility] - [facility] [phone] Barbie Griffith - 01/30/2023 6:45 EST * Daya CHAVEZ, Melissa: PERFORM Event Display: Patient Education/Instruction Authored Date: Inpatient Adult Discharge Instructions [facility] Inpatient Psychiatry [address] [place] [address] Name: IDRIS MORA : 2000 Visit: 01/19/2023 10:29:00 Current Date: 01/30/2023 10:38 Account: [id number] Inpatient Adult Discharge Instructions We would like [...] and their families. Surveys are administered by [employer] ?? If further treatment with your primary care physician or another doctor is recommended, it is important for you to keep the appointment. Call your primary care physician or return to the Emergency Department immediately if your condition worsens, fails to improve, or new symptoms develop. If you need to find a doctor, you can call [facility] [employer] Link for a referral at [phone] or toll free at [phone]) or log in to [email or web address].. ?? [facility], in keeping with [facility] guidance, no longer requires face masks [...] a health care sharonda of your choosing. [employer] is a website that allows you to securely view your medical information including your hospital discharge summary, office visit summaries, medications and follow-up visits. You can also request appointments, renew medications, and request access to your medical information using a health care sharonda of your choosing, or just ask a question. You can enroll at [email or web address] or register during your next office visit. You have been discharged from [facility] Inpatient Psychiatry, Patient Care Unit: MHU. If you have any questions regarding these instructions after you leave, please call us and we will be happy to assist you. [facility] Inpatient Psychiatry Your Care Team Attending Physician Annmarie Balderas MD Discharging Providers Rick Gray MD, Annmarie Skaggs Reason for Admission I was having intense thoughts to kill myself Your Diagnosis Frequent patient in emergency department Suicidal ideation Morbid obesity Personality disorder Fall Skin abrasion Tests Performed Below is a partial list of the tests performed during your hospitalization. You may have had other tests and procedures not included in this list. Please discuss all test results with your provider. Amphetamine Urine Screen Barbiturate Urine Screen Benzodiazepine Urine Screen Cannabinoid Urine Screen Cocaine Urine Screen COVID-19, RSV, and Flu A/B, Rapid PCR Opiate Screen Urine Urinalysis w/hold for Urine Culture CT Head/Brain W/O Contrast XR Ankle Min 3 Views Right Primary Care Provider Wiley RILEY, Anupama Arriaga Advance Directive Health Care Proxy on File No Patient does not wish or is unable to decide Discharge Vitals Temperature: 98.1 DegF Height: 168 cm Pulse Rate:??103 bpm??High Weight: 144.1 kg Respiratory Rate: 20 br/min Body Mass Index:??50.56 kg/m2??Critical Systolic Blood Pressure: 122 mm Hg Body surface area: 2.58 Diastolic Blood Pressure: 76 mm Hg ?? Oxygen Saturation: 96 % ?? Studies Pending All tests and labs ordered during this hospital stay have been completed unless listed below. Please discuss all pending results with your provider listed above in these instructions. ?? No incomplete studies found What to do next Instructions From Your Doctor Discharge Orders Discharge Medications IDRIS MORA :2000 Visit Date:01/19/2023 Medications: Please continue your medications until treatment is completed or stopped by your provider. Medications not listed below should be discontinued. Discuss any questions related to medications with your provider. What How Much When Instructions Next Dose New Methylphenidate (methylphenidate 27 mg oral tablet, extended release) 27 Milligram Oral Daily Printed Prescription 01/31 AM New Oseltamivir (oseltamivir 75 mg oral capsule) 75 Milligram Oral Daily Pickup at [place] [address] 01/31 AM Changed Duloxetine (duloxetine 30 mg oral enteric coated capsule) 1 capsule Oral Daily Pickup at [place] [address] 01/31 AM Changed Prazosin (prazosin 1 mg oral capsule) 1 Milligram Oral Daily at Bedtime Pickup at [place] [address] 01/30 PM Changed Topiramate (topiramate 25 mg oral tablet) 1 tab(s) Oral Daily Pickup at [place] [address] 01/31 AM Pharmacy Information [place] [address]: [address] [phone] ?? What How Much When Comments Stop Taking Folic Acid (folic acid 1 mg oral tablet) 1 tab(s) Oral Daily Duration: 7 Days Test Results Below is a partial list of the most recent Laboratory test results done prior to this discharge. You may have had other tests and procedures not included in this list. Please discuss all test resultswith your provider. Amphetamine Urine Screen (01/18/2023) ???Amphetamine Screen, Urine - NONE DETECTED Barbiturate Urine Screen (01/18/2023) ???Barbiturate Screen, Urine - NONE DETECTED Benzodiazepine Urine Screen (01/18/2023) ???Benzodiazepine Screen, Urine - NONE DETECTED Cannabinoid Urine Screen (01/18/2023) ???Cannabinoid Screen, Urine - NONE DETECTED Cocaine Urine Screen (01/18/2023) ???Cocaine Metabolite Screen, Urine - NONE DETECTED COVID-19, RSV, and Flu A/B, Rapid PCR (01/29/2023) ???Influenza A PCR - NEGATIVE???Influenza B PCR - NEGATIVE???RSV PCR - NEGATIVE???COVID-19 PCR Specimen Source - NASAL???COVID-19 PCR Result - NEGATIVE Opiate Screen Urine (01/18/2023) ???Opiate Screen, Urine - NONE DETECTED Urinalysis w/hold for Urine Culture (01/18/2023) ???Appear/Color, Urine - YELLOW???Clarity - CLEAR???Specific [place], Urine - 1.025???pH, Urine - 6.0???Albumin, Urine - NEGATIVE???Glucose, Urine - NEGATIVE???Ketones, Urine - NEGATIVE???Bilirubin, Urine - NEGATIVE???Hemoglobin, Urine - NEGATIVE???Nitrite, Urine - NEGATIVE???Leukocyte, Urine - NEGA TIVE???Urobilinogen - NORMAL???Hold Urine Culture - Testing available [...] I fully understand and agree that [facility] accepts no responsibility for all my [...] ?? Date for Pt to Sign Valuables/Belongings: 01/19/23 14:12:00 ?? Other Discharge Information ? Pulmonary Rehab Status?? Pulmonary Rehab Discharge Status?? Respiratory Rate: 20 br/min ?? Psychiatric Discharge Plan?? Discharge Plan Psych?? Crisis Services?? Level of Care at Discharge: Home/Family/SelfCare/RestHome/Usp/[facility] ([facility]) Psychiatric Crisis Services: For your area are available 24 hours every day, by calling: Discharge Plan Additional Information: You are being discharged back home. Crisis Services: [facility] [phone] Transportation Arranged: Service Net ?? Mode of Transportation: Other ?? Arranged Transport Date/Time: 01/30/23 11:00:00 ? Common Emergency Awareness Tips IS IT [...] are strongly encouraged to quit. Please call [facility] Link at [phone] or [phone]) or log in to [email or web address] for referrals to smoking cessation programs. ?? 920 Suicide & Crisis Lifeline is available 04/09 if you or someone you know needs to find a reason to keep living. By calling 716 you'll be connected to a skilled, trained counselor at a crisis center in your area. INPATIENT DISCHARGE INSTRUCTIONS SIGNATURE IDRIS POALNCO Location:[facility] Inpatient Psychiatry Registration Date and Time:01/19/2023 10:29 EST Primary Care Physician: Wiley RILEY, Anupama Arriaga, Attending Physician: Rick Gray MD, Annmarie Skaggs, I IDRIS MORA, have received the above patient education materials/instructions and have verbalizedunderstanding. If ambulance or transport services are being used I further acknowledge being given a choice of service. ?? If you need to contact me, please call me at this number: . Patient/Banquet Stewardess Name: Patient/Banquet Stewardess Signature: Relationship to Patient: Witness Name/Signature: Date: Patient Care team information Care Team Personnel Name: Garcia Baez RN Position: S RN Member Role: Primary [...] RN Member Role: Primary Care Nurse Name: Alejandra Gilbert RN Position: S RN Member Role: Primary Care Nurse Name: Blaire Solis RN Position: S RN Member Role: Primary Care Nurse Name: Stefani Pinto RN Position: [facility] RN Member Role: Primary Care Nurse Name: Araceli Quevedo RN Position: [facility] RN Member Role: Primary Care Nurse Name: Fatoumata Loyd RN Position: [facility] RN Member Role: Primary Care Nurse Name: Melissa Stapleton RN Position: [facility] RN Member Role: Primary Care Nurse Name: Ligia Stapleton RN Position: [facility] RN Member Role: Primary Care Nurse Name: Trinidad Ordonez RN Position: [facility] RN Member Role: Primary Care Nurse Name: Mariaelena Collazo RN Position: [facility] RN Member Role: Primary Care Nurse Name: Shankar Man Position: [facility] RN Member Role: Primary Care Nurse Name: Nikki Croft RN Position: [facility] RN Member Role: Primary Care Nurse Name: Shankar German RN Position: [facility] RN Member Role: Primary Care Nurse Name: Anupama Jama NP Position: [facility] Associate Professional Member Role: PCP Address: Address: [address] [place] [id number]- [place] Name: John Cuellar RN Position: [facility] RN Member Role: Primary Care Nurse Name: Christos Godoy RN Position: [facility] RN Member Role: Primary Care Nurse Name: Laura Lloyd RN Position: [facility] ED RN W/OE and Tasks Member Role: Patient Care Provider Name: Martin Villatoro MD Position: [facility] ED Medicine MD Member Role: ED Attending Physician Address: Address: [address] [place] [address] [place] [address]- [place] Name: Misty Larson Position: [facility] ED OA Charge Member Role: ED Associate Care Team Related Persons Name: [employer]I Address: [address] [address] Name: YULIYA MORA Address: [address] [place] [address] Name: SUNDAY [place]ORA Address: [place] [address]
--- OUTSIDE RECORDS SUMMARY | 2023-06-07 19:09 | XMS_ITS | Continuity of Care Document ---
Author Organization [facility] ter Address [address] [place] [address]- Care Team Providers Care Shear Operator Helper Name Role Phone Katie RILEY, Narda Marian Primary Care Physici an [place] [facility] 04/17/20 - 05/14/[address] [address]- Attending Physician: Kyle Alvarez MD Referring Physician: Not on Staff, Referring MD Allergies, Adverse Reactions, Alerts Substance Reaction Severity Status Trileptal Active Immunizations Given and Recorded Vaccine Date Status Refusal Reason tetanus/diphtheria/pertussis, acel(Tdap) 12/22/19 Given Medications Abilify 10 mg oral tablet 10 mg, 1, tablet, By Mouth, Daily, # 30 tablet, Refills 0, Tot. Refills 0, Maintenance, 04/22/20 14:43:00 EST, Route to Pharmacy Electronically, [facility]-, Partial fill uponpatient request if the prescription is for a schedu... Start Date: 04/22/20 Stop Date: 05/22/20 Status: Ordered prazosin 2 mg oral capsule 1 capsule = 2 mg, By Mouth, Daily at bedtime, takes with 5 mg prazosin, # 30 capsule, 0 Refills, Maintenance, 04/22/20 14:44:00 EST, Capsule, [facility]-, Partial fill upon patient request if the prescription is for a schedule... Start Date: 04/22/20 Stop Date: 05/22/20 Status: Ordered prazosin 5 mg oral capsule 5 mg, 1, capsule, By Mouth, Daily at bedtime, # 30 capsule, Refills 0, Tot. Refills 0, Maintenance,04/22/20 14:44:00 EST, Route to Pharmacy Electronically, [facility], Partial fill upon patient request if the prescription is... Start Date: 04/22/20 Stop Date: 05/22/20 Status: Ordered traZODone 100 mg oral tablet 100 mg, 1, tablet, By Mouth, Daily at bedtime, # 30 tablet, Refills 0, Tot. Refills 0, Maintenance,04/22/20 14:45:00 EST, Route to Pharmacy Electronically, [facility]-, Partial fill upon patient request if the prescription is... Start Date: 04/22/20 Stop Date: 05/22/20 Status: Ordered venlafaxine 75 mg oral tablet, extended release 1.5 tablet = 112.5 mg, By Mouth, Daily, # 45 tablet, 0 Refills, Maintenance, 04/22/20 14:45:00 EST,ER Tablet, [facility], Partial fill upon patient request if [...]
--- OUTSIDE RECORDS SUMMARY | 2023-06-07 19:09 | XMS_ITS | Continuity of Care Document ---
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 - 5.6 % HOLD LAVENDER TUBE (09/19/2022) ???Hold Lavender Top - SPECIMEN DISCARDED AFTER 24 HOURS. [place] Level (09/19/2022) ? ?[place] Level - <0.1 mmol/L Allergies (NKA means No Known Allergies) Geodon??(full body tremors) Thorazine??(Skin rash) Trileptal ibuprofen Problems Active Problems??(6) COVID-19?? COVID-19 virus infection?? Depression?? Major depressive disorder, recurrent?? Severe obesity?? Tobacco dependence?? Education Materials Below is the list of Educational Leaflet Providered with your Discharge Instructions. Valuables and Belongings I fully understand and agree that [facility] accepts no responsibility for all my [...] ?? Date for Pt to Sign Valuables/Belongings: 09/25/22 10:36:00 ?? Other Discharge Information ? Pulmonary Rehab Status?? Pulmonary Rehab Discharge Status?? Respiratory Rate: 18 br/min Respiratory Rate: 18 br/min Respiratory Rate: 18 br/min ? Common Emergency [...] are strongly encouraged to quit. Please call [facility] at [phone] or [phone] ([phone]) or log in to [email or web address] for referrals to smoking cessation programs. ?? 303 Suicide & Crisis Lifeline is available 04/09 if you or someone you know needs to find a reason to keep living. By calling 529 you'll be connected to a skilled, trained counselor at a crisis center in your area. INPATIENT DISCHARGE INSTRUCTIONS SIGNATURE IDRIS POLANCO Location:[facility] Inpatient Psychiatry Registration Date and Time:09/12/2022 14:21 EDT Primary Care Physician: Katie RILEY, Narda Fonseca, Attending Physician: Annmarie Balderas MD, I IDRIS MORA, have received the above patient education materials/instructions and have verbalizedunderstanding. If ambulance or transport services are being used I further acknowledge being given a choice of service. ?? If you need to contact me, please call me at this number: . Patient/Etcher Photoengraving Name: Patient/Etcher Photoengraving Signature: Relationship to Patient: Witness Name/Signature: Date: [...] Reference Physician Member Role: PCP Address: Address: [address] [place] [address] Name: Trinidad Ordonez RN Position: S RN Member Role: Primary Care Nurse Name: Mariaelena Collazo RN Position: S RN Member Role: Primary Care Nurse Name: Nikki Croft RN Position: S RN Member Role: Primary Care Nurse Name: John Cuellar RN Position: S RN Member Role: Primary Care Nurse Name: Christos Godoy RN Position: S RN Member Role: Primary Care Nurse Care Team Related Persons Name: LONGTERM ELECTRICIAN [employer]OMOT[employer]YENI Address: [address] [address] Name: YULIYA MORA Address: home [address] [place] [address] Name: SUNDAY MORA Address: [place] [address]
--- OUTSIDE RECORDS SUMMARY | 2023-06-07 19:09 | XMS_ITS | Continuity of Care Document ---
Author Organization [facility] Address [address] [place] [address]- Care Team Providers Care Head Refrigerating Engineer Name Role Phone Katie RILEY, Narda Fonseca Primary Care Physici an Encounter [facility] [place] Date(s): 11/18/20 - 11/19/20 [facility] [address] [place] [address]- Encounter Diagnosis Fever(Final) - 11/19/20 Chills(Final) - 11/19/20 Suicidal ideation(Final) - 11/19/20 Viral syndrome(Final) - 11/19/20 Discharge Disposition: A-D/C Home Attending Physician: Mario [...] 1 Refills, Maintenance, 11/15/20 15:51:00 EDT, Tablet, [facility]-[id number], Partial fill upon patient request if the prescription is for a schedule II opioid drug., 168, cm,... Start Date: 11/15/20 Status: Ordered chlorproMAZINE 50 mg oral tablet = 50 mg, By Mouth, 3 times a day, # 90 tablet, 1 Refills, Maintenance, 11/15/20 15:50:00 EDT, Tablet, [facility]-10079, Partial fill upon patient request if the prescription is for a schedule II opioid drug., 168, cm, 11/15/20 9:15:0... Start Date: 11/15/20 Status: Ordered hydrOXYzine pamoate 50 mg oral capsule = 50 mg, By Mouth, Every 4 hours, PRN Anxiety, # 90 capsule, 1 Refills, Maintenance, 11/15/20 15:51:00 EDT, Capsule, [facility]-[id number], Partial fill upon patient request if the prescription is for a schedule II opioid drug., 168, cm,... Start Date: 11/15/20 Status: Ordered lithium 300 mg oral tablet, extended release 2 tablet = 600 mg, By Mouth, 2 times a day, # 120 tablet, 1 Refills, Maintenance, 11/15/20 15:50:00EDT, ER Tablet, [facility] [address]68, Partial fill upon patient request if the prescription is for a schedule II opioid drug., 168, cm, 1... Start Date: 11/15/20 Status: Ordered prazosin 2 mg oral capsule 1 capsule = 2 mg, By Mouth, Daily at bedtime, takes with 5 mg prazosin, # 30 capsule, 1 Refills, Maintenance, 11/15/20 15:50:00 EDT, Capsule, [facility]-96911, Partial fill upon patient request if the prescription is for a schedule I... Start Date: 11/15/20 Stop Date: 01/14/21 Status: Ordered prazosin 5 mg oral capsule 5 mg, 1, capsule, By Mouth, Daily at bedtime, # 30 capsule, Refills 1, Tot. Refills 1, Maintenance,11/15/20 15:50:00 EDT, Route to Pharmacy Electronically, [facility]-[id number], Partial fill upon patient request if the prescription is f... Start Date: 11/15/20 Stop Date: 01/14/21 Status: Ordered PROzac 40 mg oral capsule 1 capsule = 40 mg, By Mouth, Daily, # 30 capsule, 1 Refills, Maintenance, 11/15/20 15:50:00 EDT, Capsule, [facility]-67274, Partial fill upon patient request if the prescription is for a schedule II opioid drug., 168, cm, 11/15/20 9:... Start Date: 11/15/20 Status: Ordered traZODone 150 mg oral tablet 1 tablet = 150 mg, By Mouth, Daily at bedtime, # 30 tablet, 0 Refills, Maintenance, 11/15/20 15:50:00 EDT, Tablet, [facility]-[id number], Partial fill upon patient request if the prescription is for a schedule II opioid drug., 168, cm, 10... Start Date: 11/15/20 Status: Ordered Problem List Condition Effective Dates Status Health Status Inform ant Depression(Confirmed) Active Tobacco dependence(Confirmed) Active Results Radiology Reports * Exam Date Time Procedure Performing Provider Status 11/18/20 11:21 PM Chest Portable Robel Rush; Aut h (Verified) Notes: (Chest Portable) Reason For Exam: Shortness of Breath RESULT: Chest Portable Chest Portable Hx of Present Illness: fever, body aches, mother has pneumonia and pt saw father recently (both masked). SI, pt called ANODIC OPERATOR and clincian Adenike tried to talk to the pt about a Safety Plan but pt wanted to be seen here; Reason: Shortness of Breath; Clinical Question(s): CHF COMPARISON: None. FINDINGS: LINES AND TUBES: None. LUNGS AND PLEURA: Clear lungs. Normal pulmonary vascularity. No pleural effusion. No pneumothorax. HEART, MEDIASTINUM AND JOAQUIN: Heart is normal in size. Normal upper mediastinal and hilar contour. BONES AND SOFT TISSUES: No acute abnormality. IMPRESSION: No acute abnormality. WSN: [id number] Ordering Physician: Stewart Hirsch Dictated By: Marilin Lozano MD Dictated Date/Time: 11/18/20 11:31 p Reviewed By: Marilin Lozano MD Signed By: Marilin Lozano MD Signed Date/Time: 11/18/20 11:31 pm Transcribed By: DEJON Transcribed Date/Time: 11/18/20 11:30 pm Vital Signs Most recent to oldest [Reference Range]: 1 2 Height 167 cm (11/18/20 9:41 PM) Weight 141.5 kg (11/18/20 9:41 PM) Oxygen Saturation [94-100 %] 96 % (11/19/20 8:17 AM) 98 % (11/18/20 9:41 PM) Pulse Rate [55-90 bpm] 90 bpm (11/19/20 8:17 AM) 111 bpm *H* (11/18/20 9:41 PM) Respiratory Rate [16-30 br/min] 16 br/mi n (11/19/20 8:17 AM) 20 br/min (11/18/20 9:41 PM) Temperature [96.8-100.4 DegF] 97.5 DegF (11/19/20 8:17 AM) 100.1 DegF (11/18/20 9:41 PM) Mode of Delivery (Oxygen) Room air (11/18/20 9:41 PM) Temperature Route Oral (11/19/20 8:17 AM) Oral (11/18/20 9:41 PM) Dry Weight 141.5 kg (11/18/20 9:41 PM) Weight Obtained Via Patient/family state d (11/18/20 9:41 PM) Social History Social History Type Response Smoking Status 10 or more cigarette s (1/2 pack or more)/day in last 30 days entered on: 09/07/18 Sex
--- OUTSIDE RECORDS SUMMARY | 2023-06-07 19:10 | XMS_ITS | Continuity of Care Document ---
Author Organization [facility] Address [address] [place] [address]- Care Team Providers Care Street Supervisor Name Role Phone Katie RILEY, Narda Fonseca Primary Care Physici an [place] [facility] [place] - 07/18/[address] [address]- Encounter Diagnosis Mood disorder(Final) - 07/15/21 Gender dysphoria(Final) - 07/15/21 Discharge Disposition: A-D/C Home Attending Physician: Mario [...] 03/02/20 Recorded tetanus/diphtheria/pertussis, acel(Tdap) 12/22/19 Given Medications acetaminophen 325 mg oral tablet 650 mg, Tablet, By Mouth, Every 6 hours, PRN for Pain , Moderate, Routine, 07/16/21 12:46:00 EDT Start Date: 07/16/21 Stop Date: 08/15/21 Status: Ordered gabapentin 300 mg oral capsule 300 mg, Capsule, By Mouth, 07/18/21 15:00:00 EDT Start Date: 07/18/21 Stop Date: 07/18/21 Status: Completed gabapentin 300 mg oral capsule 300 mg, 1, capsule, By Mouth, 3 times a day, # 90 capsule, Refills 0, Tot. Refills 0, Maintenance, 07/14/21 11:03:00 EDT, Route to Pharmacy Electronically, [facility]-[id number], Partialfill upon patient request if the prescription is fo... Start Date: 07/14/21 Status: Ordered Imitrex 25 mg oral tablet 4 tablet = 100 mg, By Mouth, Daily, PRN Migraine Headache, 0 Refills, Maintenance, 07/14/21 11:04:00 EDT, Tablet, Partial fill upon patient request if the prescription is for a schedule II opioid drug. Start Date: 07/14/21 Status: Ordered lithium 600 mg oral capsule = 600 mg, By Mouth, 2 times a day, 0 Refills, Maintenance, 07/14/21 11:03:00 EDT, Capsule, Partial fill upon patient request if the prescription is for a schedule II opioid drug. Start Date: 07/14/21 Status: Ordered ondansetron 4 mg oral tablet, disintegrating = 4 mg, By Mouth, Every 8 hours, PRN Nausea & Vomiting, 0 Refills, Maintenance, 07/14/21 11:03:00 EDT, Tablet, Partial fill upon patient request if the prescription is for a schedule II opioid drug. Start Date: 07/14/21 Status: Ordered prazosin 1 mg oral capsule 2 mg, 2, capsule, By Mouth, Daily at bedtime, Refills 0, Maintenance, 07/14/21 11:04:00 EDT, Partial fill upon patient request if the prescription is for a schedule II opioid drug. Start Date: 07/14/21 Status: Ordered prazosin 5 mg oral capsule 7 mg, Capsule, By Mouth, 07/17/21 21:00:00 EDT Start Date: 07/17/21 Stop Date: 07/17/21 Status: Completed prazosin 5 mg oral capsule 5 mg, 1, capsule, By Mouth, Daily at bedtime, Refills 0, Maintenance, 07/14/21 11:04:00 EDT, Partial fill upon patient request if the prescription is for a schedule II opioid drug. Start Date: 07/14/21 Status: Ordered PROzac 20 mg oral capsule 40 mg, 2, capsule, By Mouth, Daily, Refills 0, Maintenance, 07/14/21 11:03:00 EDT, Partial fill upon patient request if the prescription is for a schedule II opioid drug. Start Date: 07/14/21 Status: Ordered traZODone 50 mg oral tablet 150 mg, 3, tablet, By Mouth, Daily at bedtime, Refills 0, Maintenance, 07/14/21 11:04:00 EDT, Partial fill upon patient request if the prescription is for a schedule II opioid drug. Start Date: 07/14/21 Status: Ordered Problem List Condition Effective Dates Status Health Status Inform ant Depression(Confirmed) Active Severe obesity(Confirmed) Active Tobacco dependence(Confirmed) Active Vital Signs Most recent to oldest [Reference Range]: 1 2 3 Height 167 cm (07/18/21 7:42 AM) 167 cm (07/17/21 4:10 AM) 167 cm (07/15/21 6:31 PM) Weight 141 kg (07/18/21 7:42 AM) 141 kg (07/17/21 4:10 AM) 141 kg (07/15/21 6:31 PM) Oxygen Saturation [94-100 %] 98 % (07/18/21 3:45 PM) 98 % (07/18/21 7:42 AM) 96 % (07/17/21 4:10 AM) Pulse Rate [55-90 bpm] 89 bpm (07/18/21 3:45 PM) 92 bpm *H* (07/18/21 7:42 AM) 84 bpm (07/17/21 4:10 AM) Body Mass Index [18.5-24.99] 50.56 *>HHI* (07/18/21 7:42 AM) 50.56 *>HHI* (07/17/21 4:10 AM) Blood Pressure [90-138/55-84 mm Hg] 121/79mm Hg (07/18/21 3:45 PM) 129/73mm Hg (07/18/21 7:42 AM) 120/80mm Hg (07/17/21 11:04 PM) Respiratory Rate [16-30 br/min] 16 br/min (07/18/21 3:45 PM) 16 br/min (07/18/21 2:19 PM) 16 br/min (07/18/21 11:16 AM) Temperature [96.8-100.4 DegF] 98.8 DegF (07/18/21 3:45 PM) 97.7 DegF (07/18/21 7:42 AM) 97.4 DegF (07/17/21 4:10 AM) Mode of Delivery (Oxygen) Room air (07/18/21 3:45 PM) Room air (07/18/21 7:42 AM) Room air (07/17/21 4:10 AM) Blood pressure sites Arm, right (07/18/21 7:42 AM) Arm, right (07/17/21 4:10 AM) Arm, right (07/15/21 6:20 PM) Temperature Route Oral (07/18/21 3:45 PM) Temporal (07/18/21 7:42 AM) Temporal (07/17/21 4:10 AM) Dry Weight 141 kg (07/18/21 7:42 AM) 141 kg (07/17/21 4:10 AM) 141 kg (07/15/21 6:31 PM) Social History Social History Type Response Smoking Status 10 or more cigarette s (1/2 pack or more)/day in last 30 days entered on: 12/11/20 Sex
--- OUTSIDE RECORDS SUMMARY | 2023-06-07 19:10 | XMS_ITS | Continuity of Care Document ---
Author Organization [facility] Address [address] [place] [address]- Care Team Providers Care Fly Worker Name Role Phone Katie RILEY, Narda Marian Primary Care Physici an Encounter [facility] [place] Date(s): 12/07/20 - 12/14/20 [facility] [address] [place] [address]- Attending Physician: Olayinka Michael MD Admitting Physician: Olayinka Michael MD Allergies, Adverse Reactions, Alerts Substance Reaction [...] 1 Refills, Maintenance, 11/15/20 15:51:00 EDT, Tablet, [facility]-[id number], Partial fill upon patient request if the prescription is for a schedule II opioid drug., 168, cm,... Start Date: 11/15/20 Status: Ordered chlorproMAZINE 50 mg oral tablet = 50 mg, By Mouth, 3 times a day, # 90 tablet, 1 Refills, Maintenance, 11/15/20 15:50:00 EDT, Tablet, [facility]-62654, Partial fill upon patient request if the prescription is for a schedule II opioid drug., 168, cm, 11/15/20 9:15:0... Start Date: 11/15/20 Status: Ordered Detrol LA 4 mg oral capsule, extended release 1 capsule = 4 mg, By Mouth, Daily, # 30 capsule, 3 Refills, Maintenance, 12/07/20 11:25:00 EDT, CR Capsule, [facility]-67148, Partial fill upon patient request if the prescription is for a schedule II opioid drug., 167, cm, 12/07/20... Start Date: 12/07/20 Status: Ordered hydrOXYzine pamoate 50 mg oral capsule = 50 mg, By Mouth, Every 4 hours, PRN Anxiety, # 90 capsule, 1 Refills, Maintenance, 11/15/20 15:51:00 EDT, Capsule, [facility]23, Partial fill upon patient request if the prescription is for a schedule II opioid drug., 168, cm,... Start Date: 11/15/20 Status: Ordered lithium 300 mg oral tablet, extended release 2 tablet = 600 mg, By Mouth, 2 times a day, # 120 tablet, 1 Refills, Maintenance, 11/15/20 15:50:00EDT, ER Tablet, [facility]- 48031, Partial fill upon patient request if the prescription is for a schedule II opioid drug., 168, cm, 1... Start Date: 11/15/20 Status: Ordered prazosin 2 mg oral capsule 1 capsule = 2 mg, By Mouth, Daily at bedtime, takes with 5 mg prazosin, # 30 capsule, 1 Refills, Maintenance, 11/15/20 15:50:00 EDT, Capsule, [facility]-30930, Partial fill upon patient request if the prescription is for a schedule I... Start Date: 11/15/20 Stop Date: 01/14/21 Status: Ordered prazosin 5 mg oral capsule 5 mg, 1, capsule, By Mouth, Daily at bedtime, # 30 capsule, Refills 1, Tot. Refills 1, Maintenance,11/15/20 15:50:00 EDT, Route to Pharmacy Electronically, [facility]-[id number], Partial fill upon patient request if the prescription is f... Start Date: 11/15/20 Stop Date: 01/14/21 Status: Ordered PROzac 40 mg oral capsule 1 capsule = 40 mg, By Mouth, Daily, # 30 capsule, 1 Refills, Maintenance, 11/15/20 15:50:00 EDT, Capsule, [facility]-54099, Partial fill upon patient request if the prescription is for a schedule II opioid drug., 168, cm, 11/15/20 9:... Start Date: 11/15/20 Status: Ordered traZODone 150 mg oral tablet 1 tablet = 150 mg, By Mouth, Daily at bedtime, # 30 tablet, 0 Refills, Maintenance, 11/15/20 15:50:00 EDT, Tablet, [facility]-65071, Partial fill upon patient request if the prescription is for a schedule II opioid drug., 168, cm, 10... Start Date: 11/15/20 Status: Ordered Problem List Condition Effective Dates Status Health Status Inform ant Depression(Confirmed) Active Tobacco dependence(Confirmed) Active Procedures Procedure Date Related Diagnosis Body Site Status Cholecystectomy Completed Vital Signs Most recent to oldest [Reference Range]: 1 Height 167 cm (12/07/20 10:59 AM) Weight 136.08 kg (12/07/20 10:59 AM) Body Mass Index [18.5-24.99] 48.79 *>HHI* (12/07/20 10:59 AM) Weight Obtained Via Patient/family state d (12/07/20 10:59 AM) Social History Social History Type Response Smoking Status 10 or more cigarette s (1/2 pack or more)/day in last 30 days entered on: 12/11/20 Sex
--- OUTSIDE RECORDS SUMMARY | 2023-06-07 19:10 | XMS_ITS | Continuity of Care Document ---
Author Organization [facility] Address [address] [place] [address]- Care Team Providers Care Dynamic Balancer Name Role Phone Katie RILEY, Narda Fonseca Primary Care Physici an Encounter [facility] [place] Date(s): 11/19/20 - 11/23/[address] [address]- Encounter Diagnosis Suicidal ideation(Final) - 11/20/20 Discharge Disposition: A-D/C Home Attending Physician: Parminder [...] 1 Refills, Maintenance, 11/15/20 15:51:00 EDT, Tablet, [facility]-09881, Partial fill upon patient request if the prescription is for a schedule II opioid drug., 168, cm,... Start Date: 11/15/20 Status: Ordered chlorproMAZINE 50 mg oral tablet = 50 mg, By Mouth, 3 times a day, # 90 tablet, 1 Refills, Maintenance, 11/15/20 15:50:00 EDT, Tablet, [facility]-67459, Partial fill upon patient request if the prescription is for a schedule II opioid drug., 168, cm, 11/15/20 9:15:0... Start Date: 11/15/20 Status: Ordered hydrOXYzine pamoate 50 mg oral capsule = 50 mg, By Mouth, Every 4 hours, PRN Anxiety, # 90 capsule, 1 Refills, Maintenance, 11/15/20 15:51:00 EDT, Capsule, [facility]-52874, Partial fill upon patient request if the prescription is for a schedule II opioid drug., 168, cm,... Start Date: 11/15/20 Status: Ordered lithium 300 mg oral tablet, extended release 2 tablet = 600 mg, By Mouth, 2 times a day, # 120 tablet, 1 Refills, Maintenance, 11/15/20 15:50:00EDT, ER Tablet, [facility]- 54751, Partial fill upon patient request if the prescription is for a schedule II opioid drug., 168, cm, 1... Start Date: 11/15/20 Status: Ordered prazosin 1 mg oral capsule 2 mg, Capsule, By Mouth, 11/22/20 21:00:00 EDT Start Date: 11/22/20 Stop Date: 11/22/20 Status: Completed prazosin 2 mg oral capsule 1 capsule = 2 mg, By Mouth, Daily at bedtime, takes with 5 mg prazosin, # 30 capsule, 1 Refills, Maintenance, 11/15/20 15:50:00 EDT, Capsule, [facility]-17896, Partial fill upon patient request if the prescription is for a schedule I... Start Date: 11/15/20 Stop Date: 01/14/21 Status: Ordered prazosin 5 mg oral capsule 5 mg, 1, capsule, By Mouth, Daily at bedtime, # 30 capsule, Refills 1, Tot. Refills 1, Maintenance,11/15/20 15:50:00 EDT, Route to Pharmacy Electronically, [facility]-93041, Partial fill upon patient request if the prescription is f... Start Date: 11/15/20 Stop Date: 01/14/21 Status: Ordered prazosin 5 mg oral capsule 5 mg, Capsule, By Mouth, 11/22/20 21:00:00 EDT Start Date: 11/22/20 Stop Date: 11/22/20 Status: Completed PROzac 40 mg oral capsule 1 capsule = 40 mg, By Mouth, Daily, # 30 capsule, 1 Refills, Maintenance, 11/15/20 15:50:00 EDT, Capsule, [facility]-46710, Partial fill upon patient request if the prescription is for a schedule II opioid drug., 168, cm, 11/15/20 9:... Start Date: 11/15/20 Status: Ordered traZODone 150 mg oral tablet 1 tablet = 150 mg, By Mouth, Daily at bedtime, # 30 tablet, 0 Refills, Maintenance, 11/15/20 15:50:00 EDT, Tablet, [facility]-24959, Partial fill upon patient request if the prescription is for a schedule II opioid drug., 168, cm, 10... Start Date: 11/15/20 Status: Ordered Problem List Condition Effective Dates Status Health Status Inform ant Depression(Confirmed) Active Tobacco dependence(Confirmed) Active Vital Signs Most recent to oldest [Reference Range]: 1 2 3 Height 167 cm (11/23/20 8:11 AM) 167 cm (11/21/20 9:12 PM) 167 cm (11/20/20 9:05 AM) Weight 141.5 kg (11/23/20 8:11 AM) 141.5 kg (11/21/20 9:12 PM) 141.5 kg (11/20/20 9:05 AM) Oxygen Saturation [94-100 %] 98 % (11/23/20 8:11 AM) 95 % (11/22/20 9:24 PM) 95 % (11/22/20 6:57 PM) Pulse Rate [55-90 bpm] 100 bpm *H* (11/23/20 8:11 AM) 101 bpm *H* (11/22/20 9:24 PM) 110 bpm *H* (11/22/20 6:57 PM) Body Mass Index [18.5-24.99] 50.74 *>HHI* (11/23/20 8:11 AM) 50.74 *>HHI* (11/21/20 9:12 PM) 50.74 *>HHI* (11/20/20 9:05 AM) Blood Pressure [90-138/55-84 mm Hg] 129/79mm Hg (11/23/20 8:11 AM) 117/79mm Hg (11/22/20 9:25 PM) 117/79mm Hg (11/22/20 9:24 PM) Respiratory Rate [16-30 br/min] 20 br/min (11/23/20 8:11 AM) 18 br/min (11/22/20 9:24 PM) 18 br/min (11/22/20 6:57 PM) Temperature [96.8-100.4 DegF] 97.8 DegF (11/23/20 8:11 AM) 98.6 DegF (11/22/20 2:25 PM) 97.2 DegF (11/22/20 9:00 AM) Mode of Delivery (Oxygen) Room air (11/23/20 8:11 AM) Room air (11/22/20 9:24 PM) Room air (11/22/20 6:57 PM) Blood pressure sites Arm, left (11/23/20 8:11 AM) Arm, left (11/22/20 9:24 PM) Arm, left (11/22/20 6:57 PM) Temperature Route Oral (11/23/20 8:11 AM) Oral (11/22/20 2:25 PM) Oral (11/22/20 9:00 AM) Dry Weight 141.5 kg (11/23/20 8:11 AM) 141.5 kg (11/21/20 9:12 PM) 141.5 kg (11/20/20 9:05 AM) Weight Obtained Via Patient lift hanging scale (11/19/20 7:46 PM) Dry Weight Obtained Via Patient/family s tated (11/19/20 7:46 PM) Social History Social History Type Response Smoking Status 10 or more cigarette s (1/2 pack or more)/day in last 30 days entered on: 09/07/18 Sex
--- OUTSIDE RECORDS SUMMARY | 2023-06-07 19:10 | XMS_ITS | Continuity of Care Document ---
Author Organization [facility] Address [address] [place] [address]- Care Team Providers Care Technical Services Assistant Name Role Phone Katie RILEY, Narda Fonseca Primary Care Physici an [place] [facility] [place] 04[place]/20 [facility] [address] [place] [address]- Encounter Diagnosis Borderline personality disorder(Final) - 04/24/20 Discharge Disposition: Transfer to [facility] Attending Physician: Mariusz Diaz MD Admitting [...] 04/22/20 14:43:00 EST, Route to Pharmacy Electronically, [facility]-, Partial fill uponpatient request if the prescription is for a schedu... Start Date: 04/22/20 Stop Date: 05/22/20 Status: Ordered prazosin 1 mg oral capsule 7 mg, Capsule, By Mouth, 04/28/20 21:00:00 EDT Start Date: 04/28/20 Stop Date: 04/28/20 Status: Completed prazosin 2 mg oral capsule 1 capsule = 2 mg, By Mouth, Daily at bedtime, takes with 5 mg prazosin, # 30 capsule, 0 Refills, Maintenance, 04/22/20 14:44:00 EST, Capsule, [facility], Partial fill upon patient request if the prescription is for a schedule... Start Date: 04/22/20 Stop Date: 05/22/20 Status: Ordered prazosin 5 mg oral capsule 5 mg, 1, capsule, By Mouth, Daily at bedtime, # 30 capsule, Refills 0, Tot. Refills 0, Maintenance,04/22/20 14:44:00 EST, Route to Pharmacy Electronically, [facility]-, Partial fill upon patient request if the prescription is... Start Date: 04/22/20 Stop Date: 05/22/20 Status: Ordered traZODone 100 mg oral tablet 100 mg, 1, tablet, By Mouth, Daily at bedtime, # 30 tablet, Refills 0, Tot. Refills 0, Maintenance,04/22/20 14:45:00 EST, Route to Pharmacy Electronically, [facility]-, Partial fill upon patient request if the prescription is... Start Date: 04/22/20 Stop Date: 05/22/20 Status: Ordered venlafaxine 75 mg oral tablet, extended release 1.5 tablet = 112.5 mg, By Mouth, Daily, # 45 tablet, 0 Refills, Maintenance, 04/22/20 14:45:00 EST,ER Tablet, [facility]-, Partial fill upon patient request if the prescription is for a schedule II opioid drug., 167, cm, 04/22... Start Date: 04/22/20 Stop Date: 05/22/20 Status: Ordered Problem List Condition Effective Dates Status Health Status Inform ant Depression(Confirmed) Active Tobacco dependence(Confirmed) Active Vital Signs Most recent to oldest [Reference Range]: 1 2 3 Height 167 cm (04/28/20 11:08 AM) 167 cm (04/28/20 3:47 AM) 167 cm (04/27/20 4:08 PM) Weight 131.5 kg (04/28/20 11:08 AM) 131.5 kg (04/28/20 3:47 AM) 131.5 kg (04/27/20 4:08 PM) Oxygen Saturation [94-100 %] 98 % (04/29/20 8:32 AM) 97 % (04/28/20 9:45 PM) 97 % (04/28/20 11:08 AM) Pulse Rate [55-90 bpm] 96 bpm *H* (04/29/20 8:32 AM) 103 bpm *H* (04/28/20 9:45 PM) 103 bpm *H* (04/28/20 11:08 AM) Body Mass Index [18.5-24.99] 47.15 *>HHI* (04/28/20 11:08 AM) 47.15 *>HHI* (04/28/20 3:47 AM) 47.15 *>HHI* (04/27/20 4:08 PM) Blood Pressure [90-138/55-84 mm Hg] 101/66mm Hg (04/29/20 8:32 AM) 125/84mm Hg (04/28/20 9:50 PM) 116/76mm Hg (04/28/20 11:08 AM) Respiratory Rate [16-30 br/min] 16 br/min (04/29/20 8:32 AM) 17 br/min (04/28/20 9:45 PM) 17 br/min (04/28/20 11:08 AM) Temperature [96.8-100.4 DegF] 96.8 DegF (04/29/20 8:32 AM) 98.6 DegF (04/28/20 9:45 PM) 98.1 DegF (04/28/20 11:08 AM) Mode of Delivery (Oxygen) Room air (04/29/20 8:32 AM) Room air (04/28/20 9:45 PM) Room air (04/28/20 11:08 AM) Blood pressure sites Arm, left (04/28/20 3:47 AM) Arm, left (04/27/20 8:43 PM) Arm, right (04/27/20 4:08 PM) Temperature Route Oral (04/29/20 8:32 AM) Oral (04/28/20 9:45 PM) Oral (04/28/20 11:08 AM) Dry Weight 131.5 kg (04/28/20 11:08 AM) 131.5 kg (04/28/20 3:47 AM) 131.5 kg (04/27/20 4:08 PM) Social History Social History Type Response Smoking Status 10 or more cigarette s (1/2 pack or more)/day in last 30 days entered on: 09/07/18 Sex
--- OUTSIDE RECORDS SUMMARY | 2023-06-07 19:10 | XMS_ITS | Continuity of Care Document ---
Author Organization [facility] Address Unknown Care Team Providers Care Field Mechanic/Site Lead Name Role Phone Katie RILEY, Narda Marian Primary Care Physici an Encounter [facility] [place] R [id number] Date(s): 05/23/21 - 06/22/21 [facility] Allergies, Adverse Reactions, Alerts Substance Reaction Severity Status Thorazine Skin rash Active Trileptal Active Geodon full body tremors Active Immunizations Given and Recorded Vaccine Date Status Refusal Reason SARS-CoV-2 (COVID-19) mRNA-1273 vaccine 01/25/21 R ecorded influenza virus vaccine, inactivated 11/11/20 Give n SARS-CoV-2 (COVID-19) mRNA BNT-162b2 vac 04/13/20 Recorded SARS-CoV-2 (COVID-19) mRNA BNT-162b2 vac 03/02/20 Recorded tetanus/diphtheria/pertussis, acel(Tdap) 12/22/19 Given Medications Ibuprofen Refills 0, Maintenance, 03/17/21 10:50:00 EST, Partial fill upon patient request if the prescription is for a schedule II opioid drug. Start Date: 03/17/21 Status: Ordered lithium 300 mg oral tablet, extended release 2 tablet = 600 mg, By Mouth, 2 times a day, # 120 tablet, 1 Refills, Maintenance, 11/15/20 15:50:00EDT, ER Tablet, [facility], [place]- [id number], Partial fill upon patient request if the prescription is for a schedule II opioid drug., 168, cm, 1... Start Date: 11/15/20 Status: Ordered prazosin 2 mg oral capsule 1 capsule = 2 mg, By Mouth, Daily at bedtime, takes with 5 mg prazosin, # 30 capsule, 1 Refills, Maintenance, 11/15/20 15:50:00 EDT, Capsule, [facility], [place]-[id number], Partial fill upon patient request if the prescription is for a schedule I... Start Date: 11/15/20 Stop Date: 01/14/21 Status: Ordered prazosin 5 mg oral capsule 5 mg, 1, capsule, By Mouth, Daily at bedtime, # 30 capsule, Refills 1, Tot. Refills 1, Maintenance,11/15/20 15:50:00 EDT, Route to Pharmacy Electronically, [facility], [id number], Partial fill upon patient request if the prescription is f... Start Date: 11/15/20 Stop Date: 01/14/21 Status: Ordered PROzac 40 mg oral capsule 1 capsule = 40 mg, By Mouth, Daily, # 30 capsule, 1 Refills, Maintenance, 11/15/20 15:50:00 EDT, Capsule, [facility], [place]-[id number], Partial fill upon patient request if the prescription is for a schedule II opioid drug., 168, cm, 11/15/20 9:... Start Date: 11/15/20 Status: Ordered shower chair shower chair, See Instructions, # 1 each, Refills 0, Tot. Refills 0, Maintenance, shower chair, 04/26/21 14:20:00 EDT, Supply Start Date: 04/26/21 Status: Ordered traZODone 150 mg oral tablet 1 tablet = 150 mg, By Mouth, Daily at bedtime, # 30 tablet, 0 Refills, Maintenance, 11/15/20 15:50:00 EDT, Tablet, [facility], [id number], Partial fill upon patient request if the prescription is for a schedule II opioid drug., 168, cm, 10... Start Date: 11/15/20 Status: Ordered Problem List Condition Effective Dates Status Health Status Inform ant Depression(Confirmed) Active Severe obesity(Confirmed) Active Tobacco dependence(Confirmed) Active Social History Social History Type Response Smoking Status 10 or more cigarette s (1/2 pack or more)/day in last 30 days entered on: 12/11/20 Sex
--- OUTSIDE RECORDS SUMMARY | 2023-06-07 19:10 | XMS_ITS | Continuity of Care Document ---
Author Organization [facility] Address [address] [place] [address]- Care Team Providers Care Linen Manager Name Role Phone Katie RILEY, Narda Marian Primary Care Physici an Encounter [facility] [place] Date(s): 02/27/22 - 02/27/[address] [address]- Discharge Disposition: A-D/C Home Attending Physician: Martin [...] 0 Refills, Maintenance, 01/24/22 9:26:00 EST, Cream, [facility] Partial fill upon patient request if the prescription is for a schedule II opioid drug., Topically 2... Start Date: 01/24/22 Status: Ordered ARIPiprazole 10 mg oral tablet 20 mg, 2, tablet, By Mouth, Daily, # 60 tablet, Refills 0, Tot. Refills 0, Maintenance, 01/24/22 9:25:00 EST, Route to Pharmacy Electronically, [facility], Partial fill upon patient request if the prescription is for a schedul... Start Date: 01/24/22 Status: Ordered benztropine 1 mg oral tablet 1 mg, 1, tablet, By Mouth, Every 6 hours, PRN, PRN for extrapyramidal symptoms, # 60 tablet, Refills 0, Tot. Refills 0, Maintenance, Other, 01/24/22 9:26:00 EST, Route to Pharmacy Electronically, [facility], Partial fill upon... Start Date: 01/24/22 Status: Ordered diphenhydrAMINE 25 mg oral tablet 2 tablet = 50 mg, By Mouth, 3 times a day, PRN Agitation, to be given with haldol only, # 60 tablet, 0 Refills, Maintenance, 01/24/22 9:26:00 EST, Tablet, [facility], Partialfill upon patient request if the prescription is fo... Start Date: 01/24/22 Status: Ordered gabapentin 300 mg oral capsule 600 mg, 2, capsule, By Mouth, 3 times a day, # 180 capsule, Refills 0, Tot. Refills 0, Maintenance,01/24/22 9:26:00 EST, Route to Pharmacy Electronically, [facility], Partial fill upon patient request if the prescription is f... Start Date: 01/24/22 Status: Ordered haloperidol 5 mg oral tablet 5 mg, 1, tablet, By Mouth, Every 4 hours, PRN, to be given with diphenhydramine, # 60 tablet, Refills 0, Tot. Refills 0, Maintenance, Agitation, 01/24/22 9:26:00 EST, Route to Pharmacy Electronically, [facility], Partial fill... Start Date: 01/24/22 Status: Ordered hydrOXYzine pamoate 25 mg oral capsule 2 capsule = 50 mg, By Mouth, 4 times a day, PRN Anxiety, # 90 capsule, 0 Refills, Maintenance, 01/24/22 9:26:00 EST, Capsule, [facility], Partial fill upon patient request ifthe prescription is for a schedule II opioid drug.,... Start Date: 01/24/22 Status: Ordered lithium 600 mg oral capsule = 600 mg, By Mouth, 2 times a day, # 60 capsule, 0 Refills, Maintenance, 01/24/22 9:27:00 EST, Capsule, [facility], Partial fill upon patient request if the prescription is for a schedule II opioid drug., 168, cm, 01/24/22 7:2... Start Date: 01/24/22 Status: Ordered methylphenidate 54 mg oral tablet, extended release 1 tablet = 54 mg, By Mouth, Daily, # 30 tablet, 0 Refills, Maintenance, 01/24/22 9:27:00 EST, ER Tablet, [facility], Partial fill upon patient request if the prescription is for a schedule II opioid drug., 168, cm, 01/24/22 7:... Start Date: 01/24/22 Status: Ordered ondansetron 4 mg oral tablet, disintegrating = 4 mg, By Mouth, Every 6 hours, PRN Nausea & Vomiting, # 30 capsule, 0 Refills, Maintenance, 01/24/22 9:27:00 EST, Tablet, [facility], Partial fill upon patient request if the prescription is for a schedule II opioid drug., 1... Start Date: 01/24/22 Status: Ordered prazosin 2 mg oral capsule 1 capsule = 2 mg, By Mouth, Daily at bedtime, # 30 capsule, 0 Refills, Maintenance, 01/24/22 9:27:00 EST, Capsule, [facility], Partial fill upon patient request if the prescription is for a schedule II opioid drug., 168, cm, 1... Start Date: 01/24/22 Status: Ordered PROzac 20 mg oral capsule 40 mg, 2, capsule, By Mouth, Daily, # 60 capsule, Refills 0, Tot. Refills 0, Maintenance, 01/24/22 9:26:00 EST, Route to Pharmacy Electronically, [facility]-[id number], Partial fill upon patient request if the [...] [Reference Range]: 1 2 Height 168 cm (02/27/22 1:06 AM) Weight 136 kg (02/27/22 1:06 AM) Oxygen Saturation [94-100 %] 99 % (02/27/22 2:31 AM) 100 % (02/27/22 1:06 AM) Pulse Rate [55-90 bpm] 88 bpm (02/27/22 2:31 AM) 130 bpm *H* (02/27/22 1:06 AM) Blood Pressure [90-138/55-84 mm Hg] 106/ 66mm Hg (02/27/22 2:31 AM) 146/101mm Hg *H* (02/27/22 1:06 AM) Respiratory Rate [16-30 br/min] 14 br/mi n *L* (02/27/22 2:31 AM) 16 br/min (02/27/22 1:06 AM) Temperature [96.8-100.4 DegF] 97 DegF (02/27/22 1:06 AM) Mode of Delivery (Oxygen) Room air (02/27/22 2:31 AM) Room air (02/27/22 1:06 AM) Blood pressure sites Arm, left (02/27/22 2:31 AM) Arm, left (02/27/22 1:06 AM) Temperature Route Temporal (02/27/22 1:06 AM) Dry Weight 136 kg (02/27/22 1:06 AM) Social History Social History Type Response Smoking Status 10 or more cigarette s (1/2 pack or more)/day in last 30 days entered on: 12/11/20 Sex Patient Care team information Care Team Personnel Name: Natasha Dickey RN Position: S RN Member Role: Primary Care Nurse Name: Lauryn Nolasco Position: S RN Member Role: Primary Care Nurse Name: Blaire Solis RN Position: [facility] RN Member Role: Primary Care Nurse Name: Stefani Pinto RN Position: [facility] RN Member Role: Primary Care Nurse Name: Melissa Stapleton RN Position: [facility] RN Member Role: Primary Care Nurse Name: Ligia Stapleton RN Position: S RN Member Role: Primary Care Nurse Name: Martin Martinez RN Position: [facility] RN Member Role: Primary Care Nurse Name: Narda Wilson NP Position: Reference Physician Member Role: PCP Address: Address: [address] [place] [id number]- Name: Mariaelena Collazo RN Position: [facility] RN Member Role: Primary Care Nurse Name: Nikki Croft RN Position: [facility] RN Supv Member Role: Primary Care Nurse Name: Giana Huntley RN Position: [facility] RN Member Role: Primary Care Nurse Name: John Cuellar RN Position: [facility] RN Member Role: Primary Care Nurse Name: Holly Bowman RN Position: [facility] RN Member Role: Primary Care Nurse Name: Aline Izaguirre RN Position: [facility] RN Member Role: Primary Care Nurse Name: Martni Villatoro MD Position: [facility] ED Medicine MD Member Role: Admitting Physician Address: Address: [address] [place] [address] [place] [address]- Name: Orlando Ellison RN Position: [facility] ED RN W/OE and Tasks Member Role: Patient Care Provider Care Team Related Persons Name: HALFWAY USPS LETTER CARRIERYENI Address: home [address] [place] [address] Name: YULIYA MORA Address: home [address] [place] [address] Name: SUNDAY MORA Address: [place] [address]
--- OUTSIDE RECORDS SUMMARY | 2023-06-07 19:10 | XMS_ITS | Continuity of Care Document ---
Author Organization [facility] Address [address] [place] [address]- Care Team Providers Care Novelty Twister Tender Name Role Phone Katie RILEY, Narda Fonseca Primary Care Physici an Encounter [facility] [place] Date(s): 07/23/20 - 07/24/[address] [address]- Discharge Disposition: A-D/C Home Attending Physician: Carter [...] drug. Start Date: 06/13/20 Status: Ordered cyclobenzaprine 5 mg oral tablet 1 tablet = 5 mg, By Mouth, 3 times a day, # 15 tablet, 0 Refills, Maintenance, 07/22/20 17:31:00 EDT, Tablet, [facility]-, Partial fill upon patient request if the prescription is for a schedule II opioid drug., 168, cm, ... Start Date: 07/22/20 Status: Ordered ibuprofen 600 mg oral tablet 600 mg, 1, tablet, By Mouth, 4 times a day, PRN, # 30 tablet, Refills 0, Tot. Refills 0, Maintenance, for pain, 07/22/20 17:32:00 EDT, Route to Pharmacy Electronically, [facility]-, Partial fill upon patient request if [...] drug. Start Date: 07/23/20 Status: Ordered prazosin 1 mg oral capsule 2 mg, Capsule, By Mouth, Daily at bedtime, Routine, 07/24/20 21:00:00 EDT Start Date: 07/24/20 Stop Date: 07/24/20 Status: Canceled prazosin 2 mg oral capsule 1 capsule = 2 mg, By Mouth, Daily at bedtime, takes with 5 mg prazosin, # 30 capsule, 0 Refills, Maintenance, 04/22/20 14:44:00 EST, Capsule, [facility]-, Partial fill upon patient request if the prescription is for a schedule... Start Date: 04/22/20 Stop Date: 05/22/20 Status: Ordered prazosin 5 mg oral capsule 5 mg, Capsule, By Mouth, Daily at bedtime, Routine, 07/24/20 21:00:00 EDT Start Date: 07/24/20 Stop Date: 07/24/20 Status: Canceled prazosin 5 mg oral capsule 5 mg, 1, capsule, By Mouth, Daily at bedtime, # 30 capsule, Refills 0, Tot. Refills 0, Maintenance,04/22/20 14:44:00 EST, Route to Pharmacy Electronically, [facility]-, Partial fill upon patient request if [...] Range]: 1 2 3 Height 167 cm (07/23/20 11:37 PM) 167 cm (07/23/20 8:43 PM) Weight 137 kg (07/23/20 11:37 PM) 137 kg (07/23/20 8:43 PM) Oxygen Saturation [94-100 %] 99 % (07/24/20 9:56 AM) 98 % (07/23/20 11:37 PM) 97 % (07/23/20 8:43 PM) Pulse Rate [55-90 bpm] 95 bpm *H* (07/24/20 9:56 AM) 93 bpm *H* (07/23/20 11:37 PM) 103 bpm *H* (07/23/20 8:43 PM) Body Mass Index [18.5-24.99] 49.12 *>HHI* (07/23/20 11:37 PM) Blood Pressure [90-138/55-84 mm Hg] 116/76mm Hg (07/24/20 9:56 AM) 106/71mm Hg (07/24/20 1:37 AM) Systolic Blood Pressure [90-138 mm Hg] 106 mm Hg (07/24/20 1:38 AM) Diastolic Blood Pressure [55-84 mm Hg] 71 mm Hg (07/23/20 11:37 PM) Respiratory Rate [16-30 br/min] 18 br/min (07/24/20 9:56 AM) 17 br/min (07/23/20 11:37 PM) 20 br/min (07/23/20 8:43 PM) Temperature [96.8-100.4 DegF] 97.4 DegF (07/24/20 9:56 AM) 97.6 DegF (07/23/20 11:37 PM) 98.4 DegF (07/23/20 8:43 PM) Mode of Delivery (Oxygen) Room air (07/24/20 9:56 AM) Room air (07/23/20 11:37 PM) Room air (07/23/20 8:43 PM) Blood pressure sites Arm, left (07/24/20 9:56 AM) Arm, left (07/23/20 11:37 PM) Temperature Route Oral (07/24/20 9:56 AM) Oral (07/23/20 11:37 PM) Oral (07/23/20 8:43 PM) Dry Weight 137 kg (07/23/20 11:37 PM) 137 kg (07/23/20 8:43 PM) Weight Obtained Via Patient/family state d (07/23/20 8:43 PM) Social History Social History Type Response Smoking Status 10 or more cigarette s (1/2 pack or more)/day in last 30 days entered on: 09/07/18 Sex
--- OUTSIDE RECORDS SUMMARY | 2023-06-07 19:10 | XMS_ITS | Continuity of Care Document ---
Author Organization [facility] Address [address] [place] [address]- Care Team Providers Care Hot Packer Name Role Phone Katie RILEY, Narda Marian Primary Care Physici an [place] [facility] [place] 04/26/[address] [address]- Discharge Disposition: A-D/C Home Attending Physician: Fabiana Morley MD Admitting Physician: Blanca Gómez MD Referring Physician: Not on Staff, Referring [...] 4 hours, PRN for Pain , Mild, Temperature Greater than 100.5, Routine, 04/23/21 23:41:00 EST Start Date: 04/23/21 Stop Date: 05/23/21 Status: Ordered Ibuprofen Refills 0, Maintenance, 03/17/21 10:50:00 EST, Partial fill upon patient request if the prescription is for a schedule II opioid drug. Start Date: 03/17/21 Status: Ordered Imitrex 100 mg oral tablet 1 tablet = 100 mg, By Mouth, Daily, PRN for migraine headache, for 30 days, may repeat dose after 2hours up to a maximum of 2, # 18 tablet, 0 Refills, Acute 05/26/21 11:03:00 EDT, 04/26/21 11:03:00 EDT, Tablet, [facility]-[id number], Par... Start Date: 04/26/21 Stop Date: 05/26/21 Status: Ordered lithium 300 mg oral tablet, extended release 2 tablet = 600 mg, By Mouth, 2 times a day, # 120 tablet, 1 Refills, Maintenance, 11/15/20 15:50:00EDT, ER Tablet, [facility]- [id number], Partial fill upon patient request if the prescription is for a schedule II opioid drug., 168, cm, 1... Start Date: 11/15/20 Status: Ordered prazosin 2 mg oral capsule 1 capsule = 2 mg, By Mouth, Daily at bedtime, takes with 5 mg prazosin, # 30 capsule, 1 Refills, Maintenance, 11/15/20 15:50:00 EDT, Capsule, [facility]-[id number], Partial fill upon patient request if the prescription is for a schedule I... Start Date: 11/15/20 Stop Date: 01/14/21 Status: Ordered prazosin 5 mg oral capsule 5 mg, 1, capsule, By Mouth, Daily at bedtime, # 30 capsule, Refills 1, Tot. Refills 1, Maintenance,11/15/20 15:50:00 EDT, Route to Pharmacy Electronically, [facility]-[id number], Partial fill upon patient request if the prescription is f... Start Date: 11/15/20 Stop Date: 01/14/21 Status: Ordered PROzac 40 mg oral capsule 1 capsule = 40 mg, By Mouth, Daily, # 30 capsule, 1 Refills, Maintenance, 11/15/20 15:50:00 EDT, Capsule, [facility]-[id number], Partial fill upon patient request if the prescription is for a schedule II opioid drug., 168, cm, 11/15/20 9:... Start Date: 11/15/20 Status: Ordered shower chair shower chair, See Instructions, # 1 each, Refills 0, Tot. Refills 0, Maintenance, shower chair, 04/26/21 14:20:00 EDT, Supply Start Date: 04/26/21 Status: Ordered topiramate 25 mg oral tablet 1 tablet = 25 mg, By Mouth, Daily, # 30 tablet, 0 Refills, Maintenance, 04/26/21 11:02:00 EDT, Tablet, [facility]-[id number], Partial fill upon patient request if the prescription is fora schedule II opioid drug., 170, cm, 04/26/21 8:31:... Start Date: 04/26/21 Status: Ordered traMADol 50 mg oral tablet 100 mg, Tablet, By Mouth, Every 6 hours, PRN for Pain , Moderate, Routine, 04/24/21 16:34:00 EDT Start Date: 04/24/21 Stop Date: 05/24/21 Status: Ordered traZODone 150 mg oral tablet 1 tablet = 150 mg, By Mouth, Daily at bedtime, # 30 tablet, 0 Refills, Maintenance, 11/15/20 15:50:00 EDT, Tablet, [facility]-[id number], Partial fill upon patient request if the prescription is for a schedule II opioid drug., 168, cm, 10... Start Date: 11/15/20 Status: Ordered Problem List Condition Effective Dates Status Health Status Inform ant Depression(Confirmed) Active Severe obesity(Confirmed) Active Tobacco dependence(Confirmed) Active Vital Signs Most recent to oldest [Reference Range]: 1 2 3 Height 170 cm (04/26/21 7:31 AM) 170 cm (04/26/21 4:41 AM) 170 cm (04/26/21 12:48 AM) Weight 143 kg (04/24/21 1:29 AM) 143 kg (04/24/21 1:20 AM) 142.5 kg (04/23/21 7:20 PM) Oxygen Saturation [94-100 %] 96 % (04/26/21 4:06 PM) 96 % (04/26/21 2:22 PM) 95 % (04/26/21 7:31 AM) Pulse Rate [55-90 bpm] 75 bpm (04/26/21 2:22 PM) 75 bpm (04/26/21 7:31 AM) 58 bpm (04/26/21 4:41 AM) Body Mass Index [18.5-24.99] 49.48 *>HHI* (04/24/21 1:29 AM) 49.48 *>HHI* (04/24/21 1:20 AM) 49.31 *>HHI* (04/23/21 7:16 PM) Blood Pressure [90-138/55-84 mm Hg] 109/80mm Hg (04/26/21 2:22 PM) 114/76mm Hg (04/26/21 7:31 AM) 110/51mm Hg (04/26/21 4:41 AM) Respiratory Rate [16-30 br/min] 17 br/min (04/26/21 4:29 PM) 18 br/min (04/26/21 2:22 PM) 18 br/min (04/26/21 1:40 PM) Temperature [96.8-100.4 DegF] 98.8 DegF (04/26/21 2:22 PM) 97.8 DegF (04/26/21 7:31 AM) 97.9 DegF (04/26/21 4:41 AM) Liters per Minute 0 L/min (04/24/21 4:03 PM) Mode of Delivery (Oxygen) Room air (04/26/21 2:22 PM) Room air (04/26/21 7:31 AM) Room air (04/26/21 4:41 AM) Blood pressure sites Arm, left (04/26/21 2:22 PM) Arm, left (04/26/21 7:31 AM) Arm, right (04/26/21 4:41 AM) Temperature Route Oral (04/26/21 2:22 PM) Oral (04/26/21 7:31 AM) Oral (04/26/21 4:41 AM) Dry Weight 143 kg (04/24/21 1:29 AM) 142.5 kg (04/23/21 7:20 PM) 142.5 kg (04/23/21 7:16 PM) Weight Obtained Via Bed scale (04/24/21 1:20 AM) Social History Social History Type Response Smoking Status 10 or more cigarette s (1/2 pack or more)/day in last 30 days entered on: 12/11/20 Sex
--- OUTSIDE RECORDS SUMMARY | 2023-06-07 19:10 | XMS_ITS | Continuity of Care Document ---
Author Organization [facility] Address [address] [place] [address]- Care Team Providers Care Employee Development Manager Name Role Phone Katie RILEY, Narad Marian Primary Care Physici an Encounter [facility] Date(s): 12/09/21 - 12/09/[address] [address]- Discharge Disposition: A-D/C Home Attending Physician: Martin [...] 11/15/21 10:18:00 EDT, [id number], Partial fill upon patient request if the [...] 11/15/21 10:12:00 EDT, [id number], Partial fill upon patient request if the prescription... Start Date: 11/15/21 Status: Ordered gabapentin 300 mg oral capsule 600 mg, By Mouth, Daily in AM, # 60 capsule, Refills 0, Tot. Refills 0, Maintenance, 11/15/21 10:12:00 EDT, [facility] [place], Partial fill upon patient request if the prescription is for a schedule I... Start Date: 11/15/21 Status: Ordered haloperidol 5 mg oral tablet 5 mg, 1, tablet, By Mouth, Every 8 hours, PRN, # 90 tablet, Refills 0, Tot. Refills 0, Maintenance,Agitation, 11/15/21 10:12:00 EDT, [facility] [id number], Partial fill upon patient request if the prescr... Start Date: 11/15/21 Status: Ordered lithium 600 mg oral capsule = 600 mg, By Mouth, 2 times a day, # 60 capsule, 0 Refills, Maintenance, 11/15/21 10:12:00 EDT, Capsule, [facility]-[id number], Partial fill upon patient request if the prescription is for a schedule II opioid drug., 168, cm, 11/14/21 21:... Start Date: 11/15/21 Status: Ordered metFORMIN 500 mg oral tablet 1 each = 500 mg, By Mouth, 2 times a day, # 60 tablet, 0 Refills, Maintenance, 11/15/21 10:12:00 EDT, Tablet, [facility]-[id number], Partial fill upon patient request if the prescriptionis for a schedule II opioid drug., 168, cm, 10/03/2... Start Date: 11/15/21 Status: Ordered prazosin 2 mg oral capsule 1 capsule = 2 mg, By Mouth, Daily at bedtime, # 30 capsule, 0 Refills, Maintenance, 11/15/21 10:12:00 EDT, Capsule, [facility]-[id number], Partial fill upon patient request if the prescription is for a schedule II opioid drug., 168, cm, 1... Start Date: 11/15/21 Status: Ordered PROzac 20 mg oral capsule 40 mg, 2, capsule, By Mouth, Daily, # 60 capsule, Refills 0, Tot. Refills 0, Maintenance, 11/15/21 10:12:00 EDT, [facility] Pharm[facility], [id number], Partial fill upon patient request if the [...] oldest [Reference Range]: 1 Height 168 cm (12/09/21 5:10 AM) Weight 139 kg (12/09/21 5:10 AM) Oxygen Saturation [94-100 %] 98 % (12/09/21 5:10 AM) Pulse Rate [55-90 bpm] 106 bpm *H* (12/09/21 5:10 AM) Blood Pressure [90-138/55-84 mm Hg] 121/ 75mm Hg (12/09/21 5:10 AM) Respiratory Rate [16-30 br/min] 18 br/mi n (12/09/21 5:10 AM) Temperature [96.8-100.4 DegF] 98.5 DegF (12/09/21 5:10 AM) Mode of Delivery (Oxygen) Room air (12/09/21 5:10 AM) Blood pressure sites Arm, right (12/09/21 5:10 AM) Temperature Route Oral (12/09/21 5:10 AM) Dry Weight 139 kg (12/09/21 5:10 AM) Social History Social History Type Response Smoking Status 10 or more cigarette s (1/2 pack or more)/day in last 30 days entered on: 12/11/20 Sex Patient Care team information Personnel Name: Narda Wilson NP Address: Address: [address] [place] [id number]
--- OUTSIDE RECORDS SUMMARY | 2023-06-07 19:10 | XMS_ITS | Continuity of Care Document ---
Author Organization [facility] Address [address] [place] [address]- Care Team Providers Care Runstitching Machine Operator Name Role Phone Yovanny RILEY, Nikki Primary Care Physician [phone] Encounter [facility] Date(s): 04/20/23 - 04/21/[address] [address]- Encounter Diagnosis Depression with suicidal ideation(Final) - 04/21/23 COVID-19(Final) - 04/21/23 Borderline personality disorder(Final) - 04/21/23 Morbid obesity(Final) - 04/21/23 Discharge Disposition: A-D/C Home Attending Physician: Glenda [...] 0 Refills, Maintenance, 04/03/23 8:17:00 EST, Tablet, [id number], Partial fill upon patient request if the prescription is for a schedule II opioid drug., 167, cm, 04/02/23 20:... Start Date: 04/03/23 Status: Ordered duloxetine 60 mg oral enteric coated capsule = 60 mg, By Mouth, Daily, # 30 capsule, 0 Refills, Maintenance, 04/03/23 8:17:00 EST, Capsule, [facility]-[id number], Partial fill upon patient request if the prescription is for a schedule II opioid drug., 167, cm, 04/02/23 20:16:00 EST,... Start Date: 04/03/23 Status: Ordered haloperidol 5 mg oral tablet 5 mg, By Mouth, Daily, # 30 tablet, Refills 0, Tot. Refills 0, Maintenance, 04/03/23 8:19:00 EST, Route to Pharmacy Electronically, [facility]-[id number], Partial fill upon patient request if the prescription is for a schedule II opioid d... Start Date: 04/03/23 Status: Ordered haloperidol 5 mg oral tablet 5 mg, By Mouth, 2 times a day, PRN, # 60 tablet, Refills 0, Tot. Refills 0, Maintenance, Anxiety, 04/03/23 8:20:00 EST, Route to Pharmacy Electronically, [facility]-[id number], Partial fill upon patient request if the [...] Refills, Maintenance, 04/03/23 8:17:00 EST, ER Tablet, [facility]-[id number], Partial fill upon patient request if the [...] oral capsule 1 mg, Capsule, By Mouth, 04/20/23 21:00:00 EST Start Date: 04/20/23 Stop Date: 04/20/23 Status: Completed prazosin 1 mg oral capsule 1 mg, By Mouth, Daily at bedtime, # 30 capsule, Refills 0, Tot. Refills 0, Maintenance, 04/03/23 8:18:00 EST, [id number], Partial fill upon patient request if the prescription is for a schedule... Start Date: 04/03/23 Status: Ordered topiramate 50 mg oral tablet = 150 mg, By Mouth, Daily at bedtime, # 90 tablet, 0 Refills, Maintenance, 04/03/23 8:18:00 EST, Tablet, [facility]-[id number], Partial fill upon patient request if the prescription is for a schedule II opioid drug., 167, cm, 04/02/23 20:... Start Date: 04/03/23 Status: Ordered traZODone 50 mg oral tablet 50 mg, By Mouth, Daily at bedtime, PRN, # 30 tablet, Refills 0, Tot. Refills 0, Maintenance, Sleep,04/03/23 8:19:00 EST, Route to Pharmacy Electronically, [facility] [place]-[id number], Partialfill upon patient request if the prescription [...] Range]: 1 2 3 Height 168 cm (04/21/23 10:48 AM) 168 cm (04/20/23 3:58 PM) Weight 145 kg (04/21/23 10:48 AM) 145 kg (04/20/23 3:58 PM) Oxygen Saturation [94-100 %] 96 % (04/21/23 10:48 AM) 95 % (04/21/23 12:00 AM) 98 % (04/20/23 3:58 PM) Pulse Rate [55-90 bpm] 94 bpm *H* (04/21/23 10:48 AM) 77 bpm (04/21/23 12:00 AM) 128 bpm *H* (04/20/23 3:58 PM) Body Mass Index [18.5-24.99 kg/m2] 51.37 kg/m2 *>HHI* (04/21/23 10:48 AM) Blood Pressure [90-138/55-84 mm Hg] 123/74mm Hg (04/21/23 10:48 AM) 121/77mm Hg (04/21/23 12:00 AM) 110/56mm Hg (04/20/23 10:06 PM) Respiratory Rate [16-30 br/min] 15 br/min *L* (04/21/23 10:48 AM) 18 br/min (04/21/23 12:00 AM) 20 br/min (04/20/23 3:58 PM) Temperature [96.8-100.4 DegF] 97.8 DegF (04/21/23 10:48 AM) 96.9 DegF (04/21/23 12:00 AM) 98.0 DegF (04/20/23 3:58 PM) Mode of Delivery (Oxygen) Room air (04/21/23 10:48 AM) Room air (04/21/23 12:00 AM) Room air (04/20/23 3:58 PM) Blood pressure sites Arm, left (04/21/23 10:48 AM) Temperature Route Temporal (04/21/23 10:48 AM) Temporal (04/21/23 12:00 AM) Temporal (04/20/23 3:58 PM) Dry Weight 145 kg (04/21/23 10:48 AM) 145 kg (04/20/23 3:58 PM) Social History Social History Type Response Smoking Status 10 or more cigarette s (1/2 pack or more)/day in last 30 days entered on: 09/07/18 Sex Note * Fransisco ESTES, Glenda Mcgill: PERFORM Event Display: Patient Education Leaflets Authored Date: [id number] Depression ?? [id number] Depression Depression is a very common mental [...] medicines you take. This includes prescription and qcrk-bes-zqfurge medicines. It includes vitamins and herbal supplements. [...] An online chat option is also available. [employer] is free and available 04/09. 988 counselors [...] help ?? Last Reviewed Date: 2021 ?? [id number] [employer]. All rights reserved. This information is not intended as a substitute for professional medical care. Always follow your healthcare professional's instructions. ?? Patient Care team information Care Team Personnel Name: Garcia Baez RN Position: [facility] RN Member Role: Primary Care Nurse Name: Diamond Mancini RN Position: [facility] SN RN Member Role: Primary Care Nurse Name: Leah Almonte RN Position: [facility] RN Member Role: Primary Care Nurse Name: Natasha Dickey RN Position: [facility] RN Member Role: Primary Care Nurse Name: Kellee Garvin RN Position: [facility] RN Member Role: Primary Care Nurse Name: Maegan Diaz RN Position: [facility] RN Member Role: Primary Care Nurse Name: Genesis Lea RN Position: [facility] RN Member Role: Primary Care Nurse Name: Nikki Hairston NP Position: [facility] PCO Associate Professional Member Role: PCP Address: Address: [address] [place] [address]- Name: Alejandra Gilbert RN Position: [facility] RN Member Role: Primary Care Nurse Name: Zara Colon RN Position: [facility] RN Supv Member Role: Primary Care Nurse Name: Stefani Pinto RN Position: [facility] RN Member Role: Primary Care Nurse Name: Araceli Quevedo RN Position: [facility] RN Member Role: Primary Care Nurse Name: Fatoumata Loyd RN Position: [facility] RN Member Role: Primary Care Nurse Name: Melissa Stapleton RN Position: S RN Member Role: Primary Care Nurse Name: Ligia Stapleton RN Position: [facility] RN Member Role: Primary Care Nurse Name: Melissa Davison RN Position: [facility] RN Member Role: Primary Care Nurse Name: Trinidad Ordonez RN Position: [facility] RN Member Role: Primary Care Nurse Name: Mariaelena Collazo RN Position: [facility] RN Member Role: Primary Care Nurse Name: Beatrice Pisano RN Position: [facility] RN Member Role: Primary Care Nurse Name: Shankar Man Position: [facility] RN Member Role: Primary Care Nurse Name: Nikki Croft RN Position: [facility] RN Member Role: Primary Care Nurse Name: John Cuellar RN Position: [facility] RN Member Role: Primary Care Nurse Name: Christos Godoy RN Position: [facility] RN Member Role: Primary Care Nurse Care Team Related Persons Name: [employer] ATTENDANTYENI Address: home [address] [place] [id number] Name: YULIYA MORA Address: home [address] [place] [address] Name: SUNDAY MORA Address: [place] [address]
--- OUTSIDE RECORDS SUMMARY | 2023-06-07 19:10 | XMS_ITS | Continuity of Care Document ---
Author Organization [facility] Address [address] [place] [address]- Care Team Providers Care Processing Lead Name Role Phone Katie RILEY, Narda Fonseca Primary Care Physici an Encounter [facility] Date(s): 07/30/20 - 08/01/20 [facility] [address] [place] [address]- Discharge Disposition: Transfer to [facility] Facility Attending Physician: Carter Shen MD Admitting Physician: [...] opioid drug. Start Date: 06/13/20 Status: Ordered Benadryl 25 mg oral tablet 50 mg, 2, tablet, By Mouth, 3 times a day, PRN as needed for itching, # 30 tablet, 0 Refills, Maintenance Start Date: 07/31/20 Status: Ordered cyclobenzaprine 10 mg oral tablet 5 mg, Tablet, By Mouth, 08/01/20 9:00:00 EDT Start Date: 08/01/20 Stop Date: 08/01/20 Status: Completed cyclobenzaprine 5 mg oral tablet 1 tablet = 5 mg, By Mouth, 3 times a day, # 15 tablet, 0 Refills, Maintenance, 07/22/20 17:31:00 EDT, Tablet, [facility]-, Partial fill upon patient request if the prescription is for a schedule II opioid drug., 168, cm, ... Start Date: 07/22/20 Status: Ordered ibuprofen 600 mg oral tablet 600 mg, 1, tablet, By Mouth, 4 times a day, PRN, # 30 tablet, Refills 0, Tot. Refills 0, Maintenance, for pain, 07/22/20 17:32:00 EDT, Route to Pharmacy Electronically, [facility]-, Partial fill upon patient request if [...] 0 Refills, Maintenance, 04/22/20 14:44:00 EST, Capsule, [facility]-, Partial fill upon patient request if the prescription is for a schedule... Start Date: 04/22/20 Stop Date: 05/22/20 Status: Ordered prazosin 5 mg oral capsule 5 mg, 1, capsule, By Mouth, Daily at bedtime, # 30 capsule, Refills 0, Tot. Refills 0, Maintenance,04/22/20 14:44:00 EST, Route to Pharmacy Electronically, [facility]-, Partial fill upon patient request if the prescription is... Start Date: 04/22/20 Stop Date: 05/22/20 Status: Ordered Thorazine Tablet = 200 mg, 3 times a day, 0 Refills, Maintenance, 07/22/20 14:35:00 EDT, Partial fill upon patient request if the prescription is for a schedule II opioid drug. Start Date: 07/22/20 Status: Ordered traZODone 150 mg oral tablet [...] opioid drug. Start Date: 07/22/20 Status: Ordered Problem List Condition Effective Dates Status Health Status Inform ant Depression(Confirmed) Active Tobacco dependence(Confirmed) Active Vital Signs Most recent to oldest [Reference Range]: 1 2 3 Height 167.6 cm (08/01/20 2:52 AM) 167.6 cm (07/31/20 8:47 PM) 167.6 cm (07/31/20 8:40 AM) Weight 137 kg (08/01/20 2:52 AM) 137 kg (07/31/20 8:47 PM) 137 kg (07/31/20 8:40 AM) Oxygen Saturation [94-100 %] 98 % (08/01/20 11:09 AM) 97 % (08/01/20 2:52 AM) 98 % (07/31/20 8:47 PM) Pulse Rate [55-90 bpm] 92 bpm *H* (08/01/20 11:09 AM) 97 bpm *H* (08/01/20 2:52 AM) 113 bpm *H* (07/31/20 8:47 PM) Body Mass Index [18.5-24.99] 48.77 *>HHI* (08/01/20 2:52 AM) 48.77 *>HHI* (07/31/20 8:47 PM) 48.77 *>HHI* (07/31/20 8:40 AM) Blood Pressure [90-138/55-84 mm Hg] 110/70mm Hg (08/01/20 11:09 AM) 121/71mm Hg (08/01/20 2:52 AM) 143/79mm Hg *H* (07/31/20 8:47 PM) Respiratory Rate [16-30 br/min] 14 br/min *L* (08/01/20 11:09 AM) 20 br/min (08/01/20 7:40 AM) 18 br/min (08/01/20 2:52 AM) Temperature [96.8-100.4 DegF] 98.2 DegF (08/01/20 11:09 AM) 97.2 DegF (08/01/20 2:52 AM) 99.1 DegF (07/31/20 8:47 PM) Mode of Delivery (Oxygen) Room air (08/01/20 11:09 AM) Room air (08/01/20 2:52 AM) Room air (07/31/20 8:47 PM) Blood pressure sites Arm, right (08/01/20 2:52 AM) Arm, left (07/31/20 8:47 PM) Arm, left (07/31/20 8:40 AM) Temperature Route Oral (08/01/20 2:52 AM) Oral (07/31/20 8:47 PM) Oral (07/31/20 8:40 AM) Dry Weight 137 kg (08/01/20 2:52 AM) 137 kg (07/31/20 8:47 PM) 137 kg (07/31/20 8:40 AM) Social History Social History Type Response Smoking Status 10 or more cigarette s (1/2 pack or more)/day in last 30 days entered on: 09/07/18 Sex
--- OUTSIDE RECORDS SUMMARY | 2023-06-07 19:10 | XMS_ITS | Continuity of Care Document ---
Author Organization [facility] Address [address], [address] [place] [address]- Care Team Providers Care Pillowcase Cutter Name Role Phone Katie RILEY, Narda Fonseca Primary Care Physici an Encounter [facility] [id number] Date(s): 03/17/21 - 05/07/21 [facility] [address] [place] [address]- Attending Physician: Radha RILEY, Dania Green Admitting Physician: Radha RILEY, Dania Green Referring Physician: Katie RILEY, Narda Fonseca Allergies, Adverse Reactions, Alerts Substance Reaction Severity [...] 05/26/21 11:03:00 EDT, 04/26/21 11:03:00 EDT, Tablet, [facility]-[id number], Par... Start Date: 04/26/21 Stop Date: 05/26/21 Status: Ordered lithium 300 mg oral tablet, extended release 2 tablet = 600 mg, By Mouth, 2 times a day, # 120 tablet, 1 Refills, Maintenance, 11/15/20 15:50:00EDT, ER Tablet, [facility]- [id number], Partial fill upon patient request if the prescription is for a schedule II opioid drug., 168, cm, 1... Start Date: 11/15/20 Status: Ordered prazosin 2 mg oral capsule 1 capsule = 2 mg, By Mouth, Daily at bedtime, takes with 5 mg prazosin, # 30 capsule, 1 Refills, Maintenance, 11/15/20 15:50:00 EDT, Capsule, [facility]-44267, Partial fill upon patient request if the prescription is for a schedule I... Start Date: 11/15/20 Stop Date: 01/14/21 Status: Ordered prazosin 5 mg oral capsule 5 mg, 1, capsule, By Mouth, Daily at bedtime, # 30 capsule, Refills 1, Tot. Refills 1, Maintenance,11/15/20 15:50:00 EDT, Route to Pharmacy Electronically, [facility]-[id number], Partial fill upon patient request if the prescription is f... Start Date: 11/15/20 Stop Date: 01/14/21 Status: Ordered PROzac 40 mg oral capsule 1 capsule = 40 mg, By Mouth, Daily, # 30 capsule, 1 Refills, Maintenance, 11/15/20 15:50:00 EDT, Capsule, [facility]-06363, Partial fill upon patient request if the [...] 0 Refills, Maintenance, 04/26/21 11:02:00 EDT, Tablet, [facility]-91492, Partial fill upon patient request if the prescription is fora schedule II opioid drug., 170, cm, 04/26/21 8:31:... Start Date: 04/26/21 Status: Ordered traZODone 150 mg oral tablet 1 tablet = 150 mg, By Mouth, Daily at bedtime, # 30 tablet, 0 Refills, Maintenance, 11/15/20 15:50:00 EDT, Tablet, [facility]-[id number], Partial fill upon patient request if the [...]
--- OUTSIDE RECORDS SUMMARY | 2023-06-07 19:10 | XMS_ITS | Continuity of Care Document ---
Author Organization [facility] Address [address] [place] [address]- Care Team Providers Care Catalyst Impregnator Name Role Phone Katie RILEY, Narda Fonseca Primary Care Physici an Encounter [facility] Date(s): 04/15/20 - 04/17/[address] [address]- Discharge Disposition: A-D/C Home Attending Physician: Mariusz Diaz MD Admitting Physician: [...] Range]: 1 2 3 Height 167 cm (04/17/20 2:13 AM) 167 cm (04/15/20 8:21 PM) Weight 131.5 kg (04/17/20 2:13 AM) 131.5 kg (04/15/20 8:21 PM) Oxygen Saturation [94-100 %] 97 % (04/17/20 10:25 AM) 100 % (04/17/20 8:23 AM) 96 % (04/17/20 2:13 AM) Pulse Rate [55-90 bpm] 118 bpm *H* (04/17/20 10:25 AM) 98 bpm *H* (04/17/20 8:23 AM) 96 bpm *H* (04/17/20 2:13 AM) Body Mass Index [18.5-24.99] 47.15 *>HHI* (04/17/20 2:13 AM) Blood Pressure [90-138/55-84 mm Hg] 132/75mm Hg (3/6/21 10:25 AM) 118/62mm Hg (04/17/20 8:23 AM) 106/75mm Hg (04/17/20 2:13 AM) Respiratory Rate [16-30 br/min] 16 br/min (04/17/20 10:25 AM) 18 br/min (04/17/20 8:23 AM) 20 br/min (04/17/20 2:13 AM) Temperature [96.8-100.4 DegF] 98.5 DegF (04/17/20 10:25 AM) 98.2 DegF (04/17/20 8:23 AM) 97.1 DegF (04/17/20 2:13 AM) Mode of Delivery (Oxygen) Room air (04/17/20 10:25 AM) Room air (04/17/20 8:23 AM) room air (04/17/20 2:13 AM) Temperature Route Oral (04/17/20 10:25 AM) Oral (04/17/20 8:23 AM) Oral (04/17/20 2:13 AM) Dry Weight 131.5 kg (04/17/20 2:13 AM) 131.5 kg (04/15/20 8:21 PM) Social History Social History Type Response Smoking Status 10 or more cigarette s (1/2 pack or more)/day in last 30 days entered on: 09/07/18 Sex
--- OUTSIDE RECORDS SUMMARY | 2023-06-07 19:10 | XMS_ITS | Continuity of Care Document ---
Author Organization [facility] Address [address] [place] [address]- Care Team Providers Care Car Sales Representative Name Role Phone Katie RILEY, Narda Fonseca Primary Care Physici an [place] [facility] [place] - 04/12/[address] [address]- Discharge Disposition: A-D/C Home Attending Physician: Glenda [...] 1 Refills, Maintenance, 11/15/20 15:51:00 EDT, Tablet, [id number], Partial fill upon patient request if the prescription is for a schedule II opioid drug., 168, cm,... Start Date: 11/15/20 Status: Ordered chlorproMAZINE 50 mg oral tablet = 50 mg, By Mouth, 3 times a day, # 90 tablet, 1 Refills, Maintenance, 11/15/20 15:50:00 EDT, Tablet, [id number], Partial fill upon patient request if the prescription is for a schedule II opioid drug., 168, cm, 11/15/20 9:15:0... Start Date: 11/15/20 Status: Ordered Detrol LA 4 mg oral capsule, extended release 1 capsule = 4 mg, By Mouth, Daily, # 30 capsule, 3 Refills, Maintenance, 12/07/20 11:25:00 EDT, CR Capsule, [facility]-[id number], Partial fill upon patient request if the prescription is for a schedule II opioid drug., 167, cm, 12/07/20... Start Date: 12/07/20 Status: Ordered hydrOXYzine pamoate 50 mg oral capsule = 50 mg, By Mouth, Every 4 hours, PRN Anxiety, # 90 capsule, 1 Refills, Maintenance, 11/15/20 15:51:00 EDT, Capsule, [facility]-[id number], Partial fill upon patient request if the [...] 04/12/21 22:34:00 EST, Route to Pharmacy Electronically, [facility]-[id number], Partial fill upon patient req... Start Date: 04/12/21 Stop Date: 04/15/21 Status: Ordered lithium 300 mg oral tablet, extended release 2 tablet = 600 mg, By Mouth, 2 times a day, # 120 tablet, 1 Refills, Maintenance, 11/15/20 15:50:00EDT, ER Tablet, [facility]- [id number], Partial fill upon patient request if the prescription is for a schedule II opioid drug., 168, cm, 1... Start Date: 11/15/20 Status: Ordered prazosin 2 mg oral capsule 1 capsule = 2 mg, By Mouth, Daily at bedtime, takes with 5 mg prazosin, # 30 capsule, 1 Refills, Maintenance, 11/15/20 15:50:00 EDT, Capsule, [facility]-[id number], Partial fill upon patient request if the prescription is for a schedule I... Start Date: 11/15/20 Stop Date: 01/14/21 Status: Ordered prazosin 5 mg oral capsule 5 mg, 1, capsule, By Mouth, Daily at bedtime, # 30 capsule, Refills 1, Tot. Refills 1, Maintenance,11/15/20 15:50:00 EDT, Route to Pharmacy Electronically, [facility]-[id number], Partial fill upon patient request if the prescription is f... Start Date: 11/15/20 Stop Date: 01/14/21 Status: Ordered PROzac 40 mg oral capsule 1 capsule = 40 mg, By Mouth, Daily, # 30 capsule, 1 Refills, Maintenance, 11/15/20 15:50:00 EDT, Capsule, [facility]-[id number], Partial fill upon patient request if the prescription is for a schedule II opioid drug., 168, cm, 11/15/20 9:... Start Date: 11/15/20 Status: Ordered Toradol Inj 15 mg, Injection, IV Push Slowly, Once, STAT, 04/12/21 19:11:00 EST, Stop date 04/12/21 19:11:00 EST Start Date: 04/12/21 Stop Date: 04/12/21 Status: Completed traZODone 150 mg oral tablet 1 tablet = 150 mg, By Mouth, Daily at bedtime, # 30 tablet, 0 Refills, Maintenance, 11/15/20 15:50:00 EDT, Tablet, [facility]-[id number], Partial fill upon patient request if the prescription is for a schedule II opioid drug., 168, cm, 10... Start Date: 11/15/20 Status: Ordered Problem List Condition Effective Dates Status Health Status Inform ant Depression(Confirmed) Active Severe obesity(Confirmed) Active Tobacco dependence(Confirmed) Active Vital Signs Most recent to oldest [Reference Range]: 1 2 3 Height 168 cm (04/12/21 9:47 PM) 168 cm (04/12/21 7:10 PM) 168 cm (04/12/21 6:33 PM) Weight 140.9 kg (04/12/21 9:47 PM) 140.9 kg (04/12/21 7:10 PM) 140.9 kg (04/12/21 6:33 PM) Oxygen Saturation [94-100 %] 97 % (04/12/21 9:47 PM) 97 % (04/12/21 6:33 PM) Pulse Rate [55-90 bpm] 78 bpm (04/12/21 9:47 PM) 90 bpm (04/12/21 6:33 PM) Body Mass Index [18.5-24.99] 49.92 *>HHI* (04/12/21 9:47 PM) 49.92 *>HHI* (04/12/21 7:10 PM) Blood Pressure [90-138/55-84 mm Hg] 118/74mm Hg (04/12/21 9:47 PM) 116/82mm Hg (04/12/21 6:33 PM) Respiratory Rate [16-30 br/min] 16 br/min (04/12/21 9:47 PM) 16 br/min (04/12/21 8:18 PM) 18 br/min (04/12/21 6:33 PM) Temperature [96.8-100.4 DegF] 98.0 DegF (04/12/21 9:47 PM) 98.1 DegF (04/12/21 7:10 PM) 100.3 DegF (04/12/21 6:33 PM) Mode of Delivery (Oxygen) Room air (04/12/21 9:47 PM) Room air (04/12/21 6:33 PM) Blood pressure sites Arm, right (04/12/21 6:33 PM) Temperature Route Oral (04/12/21 9:47 PM) Oral (04/12/21 7:10 PM) Temporal (04/12/21 6:33 PM) Dry Weight 140.9 kg (04/12/21 9:47 PM) 140.9 kg (04/12/21 7:10 PM) 140.9 kg (04/12/21 6:33 PM) Weight Obtained Via Patient/family state d (04/12/21 6:33 PM) Social History Social History Type Response Smoking Status 10 or more cigarette s (1/2 pack or more)/day in last 30 days entered on: 12/11/20 Sex
--- OUTSIDE RECORDS SUMMARY | 2023-06-07 19:10 | XMS_ITS | Continuity of Care Document ---
Author Organization [facility] Address [address] [place] [address]- Care Team Providers Care Senior Systems Software Engineer Name Role Phone Katie RILEY, Narda Marian Primary Care Physici an Encounter [facility] [place] Date(s): 02/08/22 - 02/09/[address] [address]- Discharge Disposition: A-D/C Home Attending Physician: Misty [...] 0 Refills, Maintenance, 01/24/22 9:26:00 EST, [facility] upon patient request if the prescription is for a schedule II opioid drug., Topically 2... Start Date: 01/24/22 Status: Ordered ARIPiprazole 10 mg oral tablet 20 mg, 2, tablet, By Mouth, Daily, # 60 tablet, Refills 0, Tot. Refills 0, Maintenance, 01/24/22 9:25:00 EST, Route to Pharmacy Electronically, [facility], Partial fill upon patient request if the prescription is for a schedul... Start Date: 01/24/22 Status: Ordered benztropine 1 mg oral tablet 1 mg, 1, tablet, By Mouth, Every 6 hours, PRN, PRN for extrapyramidal symptoms, # 60 tablet, Refills 0, Tot. Refills 0, Maintenance, Other, 01/24/22 9:26:00 EST, Route to Pharmacy Electronically, [facility]-, Partial fill upon... Start Date: 01/24/22 Status: Ordered diphenhydrAMINE 25 mg oral tablet 2 tablet = 50 mg, By Mouth, 3 times a day, PRN Agitation, to be given with haldol only, # 60 tablet, 0 Refills, Maintenance, 01/24/22 9:26:00 EST, Tablet, [facility]-, Partialfill upon patient request if the prescription is fo... Start Date: 01/24/22 Status: Ordered Flonase Nares, Both, 2 times [...] Maintenance,01/24/22 9:26:00 EST, Route to Pharmacy Electronically, [facility], Partial fill upon patient request if the prescription is f... Start Date: 01/24/22 Status: Ordered gabapentin 300 mg oral capsule 600 mg, Capsule, By Mouth, 02/09/22 9:00:00 EST Start Date: 02/09/22 Stop Date: 02/09/22 Status: Completed haloperidol 5 mg oral tablet 5 mg, 1, tablet, By Mouth, Every 4 hours, PRN, to be given with diphenhydramine, # 60 tablet, Refills 0, Tot. Refills 0, Maintenance, Agitation, 01/24/22 9:26:00 EST, Route to Pharmacy Electronically, [facility]-, Partial fill... Start Date: 01/24/22 Status: Ordered hydrOXYzine pamoate 25 mg oral capsule 2 capsule = 50 mg, By Mouth, 4 times a day, PRN Anxiety, # 90 capsule, 0 Refills, Maintenance, 01/24/22 9:26:00 EST, Capsule, [facility]-, Partial fill upon patient request ifthe prescription is for a schedule II opioid drug.,... Start Date: 01/24/22 Status: Ordered lidocaine 5% topical ointment See Instructions, Topically 3 times a day to affected areas for pain, # 3 Gm, 0 Refills, Acute 02/23/22 8:00:00 EST, 01/23/22 15:33:00 EST, Ointment, [facility]-, Partial fillupon patient request if the prescription is for a s... Start Date: 01/23/22 Stop Date: 02/23/22 Status: Ordered lidocaine 5% topical ointment See Instructions, Topically 3 times a day to affected areas for pain, # 3 Gm, 0 Refills, Acute 02/24/22 8:00:00 EST, 02/23/22 8:00:00 EST, Ointment, [facility], Partial fill upon patient request if the prescription is for a sc... Start Date: 02/23/22 Stop Date: 02/24/22 Status: Ordered lithium 600 mg oral capsule = 600 mg, By Mouth, 2 times a day, # 60 capsule, 0 Refills, Maintenance, 01/24/22 9:27:00 EST, Capsule, [facility], Partial fill upon patient request if the prescription is for a schedule II opioid drug., 168, cm, 01/24/22 7:2... Start Date: 01/24/22 Status: Ordered methylphenidate 54 mg oral tablet, extended release 1 tablet = 54 mg, By Mouth, Daily, # 30 tablet, 0 Refills, Maintenance, 01/24/22 9:27:00 EST, ER Tablet, [facility], Partial fill upon patient request if the prescription is for a schedule II opioid drug., 168, cm, 01/24/22 7:... Start Date: 01/24/22 Status: Ordered ondansetron 4 mg oral tablet, disintegrating = 4 mg, By Mouth, Every 6 hours, PRN Nausea & Vomiting, # 30 capsule, 0 Refills, Maintenance, 01/24/22 9:27:00 EST, Tablet, [facility], Partial fill upon patient request if the prescription is for a schedule II opioid drug., 1... Start Date: 01/24/22 Status: Ordered prazosin 2 mg oral capsule 1 capsule = 2 mg, By Mouth, Daily at bedtime, # 30 capsule, 0 Refills, Maintenance, 01/24/22 9:27:00 EST, Capsule, [facility], Partial fill upon patient request if the prescription is for a schedule II opioid drug., 168, cm, 1... Start Date: 01/24/22 Status: Ordered PROzac 20 mg oral capsule 40 mg, 2, capsule, By Mouth, Daily, # 60 capsule, Refills 0, Tot. Refills 0, Maintenance, 01/24/22 9:26:00 EST, Route to Pharmacy Electronically, [facility], Partial fill upon patient request if the prescription is for a sched... Start Date: 01/24/22 Status: Ordered Problem List Condition Confirmation Course Effective Dates Status [facility] Informant COVID-19 virus infection Confirmed Active COVID-19 1 Confirmed 11/15/21 Active Depression Confirmed Active Major depressive disorder, recurrent Confirmed Active Severe obesity Confirmed Active Tobacco dependence Confirmed Active 1Problem added by Discern Expert Vital Signs Most recent to oldest [Reference Range]: 1 2 3 Height 163 cm (02/09/22 8:11 AM) 163 cm (02/09/22 4:06 AM) 163 cm (02/08/22 10:19 PM) Weight 116 kg (02/09/22 8:11 AM) 116 kg (02/09/22 4:06 AM) 116 kg (02/08/22 10:19 PM) Oxygen Saturation [94-100 %] 96 % (12/29/22 8:11 AM) 96 % (02/09/22 4:06 AM) 98 % (02/08/22 10:44 PM) Pulse Rate [55-90 bpm] 88 bpm (02/09/22 8:11 AM) 83 bpm (02/09/22 4:06 AM) 106 bpm *H* (02/08/22 10:44 PM) Body Mass Index [18.5-24.99 kg/m2] 43.66 kg/m2 *>HHI* (02/09/22 8:11 AM) 43.66 kg/m2 *>HHI* (02/09/22 4:06 AM) Blood Pressure [90-138/55-84 mm Hg] 125/69mm Hg (02/09/22 8:11 AM) 105/64mm Hg (02/09/22 4:06 AM) 123/87mm Hg (02/08/22 10:44 PM) Respiratory Rate [16-30 br/min] 17 br/min (02/09/22 8:21 AM) 18 br/min (02/09/22 8:11 AM) 18 br/min (02/09/22 4:06 AM) Temperature [96.8-100.4 DegF] 97.8 DegF (02/09/22 8:11 AM) 97.3 DegF (02/08/22 10:44 PM) Mode of Delivery (Oxygen) Room air (02/09/22 8:11 AM) room air (02/09/22 4:06 AM) Room air (02/08/22 10:44 PM) Blood pressure sites Arm, left (02/09/22 8:11 AM) Temperature Route Temporal (02/09/22 8:11 AM) Oral (02/08/22 10:44 PM) Dry Weight 116 kg (02/09/22 8:11 AM) 116 kg (02/09/22 4:06 AM) 116 kg (02/08/22 10:19 PM) Social History Social History Type Response Smoking Status 10 or more cigarette s (1/2 pack or more)/day in last 30 days entered on: 12/11/20 Sex Note * Omayra ESTES, Misty: VERIFY, PERFORM, SIGN Event Display: Patient Education Handout Authored Date: [id number] Patient Care team information Care Team Personnel Name: Natasha Dickey RN Position: [facility] RN Member Role: Primary Care Nurse Name: Lauryn Nolasco Position: [facility] RN Member Role: Primary Care Nurse Name: Blaire Solis RN Position: [facility] RN Member Role: Primary Care Nurse Name: Stefani Pinto RN Position: S RN Member Role: Primary Care Nurse Name: Melissa Stapleton RN Position: [facility] RN Member Role: Primary Care Nurse Name: Ligia Stapleton RN Position: S RN Member Role: Primary Care Nurse Name: Martin Martinez RN Position: [facility] RN Member Role: Primary Care Nurse Name: Narda Wilson NP Position: Reference Physician Member Role: PCP Address: Address: [address] [place], [place] [id number]- Name: Mariaelena Collazo RN Position: [facility] RN Member Role: Primary Care Nurse Name: Nikki Croft RN Position: [facility] RN Supv Member Role: Primary Care Nurse Name: Giana Huntley RN Position: [facility] RN Member Role: Primary Care Nurse Name: John Cuellar RN Position: [facility] RN Member Role: Primary Care Nurse Name: Holly Bowman RN Position: [facility] RN Member Role: Primary Care Nurse Name: Aline Izaguirre RN Position: [facility] RN Member Role: Primary Care Nurse Name: Misty Cutler MD Position: [facility] ED Medicine MD Member Role: Admitting Physician Address: Address: [address] [place] [address] - Name: Bhavna Gaitan RN Position: [facility] ED RN W/OE and Tasks Member Role: Patient Care Provider Care Team Related Persons Name: ASSISTED MD OPHTHALMOLOGISTYENI Address: home [address], [place] Name: YULIYA MORA Address: home [address] [place] [address] Name: SUNDAY MORA Address: [place] [address]
--- OUTSIDE RECORDS SUMMARY | 2023-06-07 19:10 | XMS_ITS | Continuity of Care Document ---
Author Organization [facility] Address [address] [place] [address]- Care Team Providers Care Inspector Packer Name Role Phone Katie RILEY, Narda Marian Primary Care Physici an Encounter [facility] [place] Date(s): 06/12/20 - 06/12/[address] [address]- Discharge Disposition: A-D/C Home Attending Physician: Martin [...] 04/22/20 14:43:00 EST, Route to Pharmacy Electronically, [facility]-, Partial fill uponpatient request if the prescription is for a schedu... Start Date: 04/22/20 Stop Date: 05/22/20 Status: Ordered prazosin 2 mg oral capsule 1 capsule = 2 mg, By Mouth, Daily at bedtime, takes with 5 mg prazosin, # 30 capsule, 0 Refills, Maintenance, 04/22/20 14:44:00 EST, Capsule, [facility]-, Partial fill upon patient request if the prescription is for a schedule... Start Date: 04/22/20 Stop Date: 05/22/20 Status: Ordered prazosin 5 mg oral capsule 5 mg, 1, capsule, By Mouth, Daily at bedtime, # 30 capsule, Refills 0, Tot. Refills 0, Maintenance,04/22/20 14:44:00 EST, Route to Pharmacy Electronically, [facility], Partial fill upon patient request if the prescription is... Start Date: 04/22/20 Stop Date: 05/22/20 Status: Ordered traZODone 100 mg oral tablet 100 mg, 1, tablet, By Mouth, Daily at bedtime, # 30 tablet, Refills 0, Tot. Refills 0, Maintenance,04/22/20 14:45:00 EST, Route to Pharmacy Electronically, [facility], Partial fill upon patient request if the prescription is... Start Date: 04/22/20 Stop Date: 05/22/20 Status: Ordered venlafaxine 75 mg oral tablet, extended release 1.5 tablet = 112.5 mg, By Mouth, Daily, # 45 tablet, 0 Refills, Maintenance, 04/22/20 14:45:00 EST,ER Tablet, [facility], Partial fill upon patient request if the prescription is for a schedule II opioid drug., 167, cm, 04/22... Start Date: 04/22/20 Stop Date: 05/22/20 Status: Ordered Problem List Condition Effective Dates Status Health Status Inform ant Depression(Confirmed) Active Tobacco dependence(Confirmed) Active Vital Signs Most recent to oldest [Reference Range]: 1 2 3 Height 168 cm (06/12/20 3:34 AM) Weight 137 kg (06/12/20 3:34 AM) Oxygen Saturation [94-100 %] 98 % (06/12/20 9:38 AM) 98 % (06/12/20 3:34 AM) Pulse Rate [55-90 bpm] 105 bpm *H* (06/12/20 9:38 AM) 112 bpm *H* (06/12/20 3:34 AM) Blood Pressure [90-138/55-84 mm Hg] 105/72mm Hg (06/12/20 9:38 AM) Respiratory Rate [16-30 br/min] 16 br/min (06/12/20 9:38 AM) 16 br/min (06/12/20 7:00 AM) 17 br/min (06/12/20 6:11 AM) Temperature [96.8-100.4 DegF] 98.3 DegF (06/12/20 9:38 AM) 98.7 DegF (06/12/20 3:34 AM) Mode of Delivery (Oxygen) Room air (06/12/20 9:38 AM) Room air (06/12/20 3:34 AM) Temperature Route Oral (06/12/20 9:38 AM) Oral (06/12/20 3:34 AM) Dry Weight 137 kg (06/12/20 3:34 AM) Weight Obtained Via Patient/family state d (06/12/20 3:34 AM) Social History Social History Type Response Smoking Status 10 or more cigarette s (1/2 pack or more)/day in last 30 days entered on: 09/07/18 Sex
--- OUTSIDE RECORDS SUMMARY | 2023-06-07 19:10 | XMS_ITS | Continuity of Care Document ---
Author Organization [facility] Address [address] [place] [address]- Care Team Providers Care Coat Fitter Name Role Phone Anny Arnett Primary Care Physician [phone] [place] [facility] [place] - 10/12/[address] [address]- Discharge Disposition: A-D/C Home Attending Physician: Misty Cutler MD Admitting Physician: Misty Cutler MD Referring Physician: Not on Staff, Referring MD Allergies, Adverse Reactions, Alerts Substance Reaction Severity Status ibuprofen 1 Active Thorazine Skin rash Active Geodon full body tremors Active Trileptal Active 1pt told notto take as she [...] 0 Refills, Maintenance, 10/10/22 10:08:00 EDT, Capsule, [facility]-[id number], Partial fill upon patient request if the prescription is for a schedule II opioid drug., 168, cm, 10/10/22 9:07... Start Date: 10/10/22 Status: Ordered fluticasone 27.5 mcg/inh nasal spray 2 sprays, Nares, Both, Daily, PRN for allergy symptoms, # 10 Gm, 0 Refills, Maintenance, 10/12/22 4:42:00 EDT, [place], Partial fill upon patient request if the prescription is for a schedule II opioiddrug. Start Date: 10/12/22 Status: Ordered gabapentin 300 mg oral capsule 300 mg, By Mouth, Daily, # 30 capsule, Refills 0, Tot. Refills 0, Maintenance, 10/10/22 10:08:00 EDT, Route to Pharmacy Electronically, [facility]-[id number], Partial fill upon patient request if the prescription is for a schedule II opio... Start Date: 10/10/22 Status: Ordered gabapentin 300 mg oral capsule 600 mg, Capsule, By Mouth, 10/12/22 9:00:00 EDT Start Date: 10/12/22 Stop Date: 10/12/22 Status: Completed gabapentin 600 mg oral tablet [...] Maintenance, 10/10/22 10:08:00 EDT,Route to Pharmacy Electronically, [facility]-[id number], Partial fill upon patient request if the [...] Refills, Maintenance, 10/10/22 10:10:00 EDT, DIS Tablet, [facility]-[id number], Partial fill upon patient request if the prescriptionis for a schedule II opioid drug., 168, cm, 08/29/2... Start Date: 10/10/22 Status: Ordered prazosin 1 mg oral capsule 2 mg, By Mouth, Daily at bedtime, Refills 0, Maintenance, 10/10/22 10:08:00 EDT, Partial fill upon patient request if the prescription is for a schedule II opioid drug. Start Date: 10/10/22 Status: Ordered Robitussin DM Liquid 5 mL, By Mouth, [...] oldest [Reference Range]: 1 2 3 Height 165 cm (10/12/22 10:08 AM) 165 cm (10/12/22 7:42 AM) 165 cm (10/11/22 10:15 PM) Weight 136 kg (10/12/22 10:08 AM) 136 kg (10/12/22 7:42 AM) 136 kg (10/11/22 10:15 PM) Oxygen Saturation [94-100 %] 100 % (10/12/22 10:08 AM) 99 % (10/12/22 7:42 AM) 95 % (10/11/22 10:15 PM) Pulse Rate [55-90 bpm] 75 bpm (10/12/22 10:08 AM) 78 bpm (10/12/22 7:42 AM) 111 bpm *H* (10/11/22 10:15 PM) Body Mass Index [18.5-24.99 kg/m2] 49.95 kg/m2 *>HHI* (10/12/22 10:08 AM) 49.95 kg/m2 *>HHI* (10/12/22 7:42 AM) 49.95 kg/m2 *>HHI* (10/11/22 10:15 PM) Blood Pressure [90-138/55-84 mm Hg] 130/78mm Hg (10/12/22 10:08 AM) 118/78mm Hg (10/12/22 7:42 AM) 142/78mm Hg *H* (10/11/22 10:15 PM) Respiratory Rate [16-30 br/min] 16 br/min (10/12/22 10:08 AM) 16 br/min (10/12/22 9:01 AM) 16 br/min (10/12/22 7:42 AM) Temperature [96.8-100.4 DegF] 96.9 DegF (10/12/22 7:42 AM) 99.3 DegF (10/11/22 10:15 PM) Mode of Delivery (Oxygen) Room air (10/12/22 10:08 AM) Room air (10/12/22 7:42 AM) Temperature Route Oral (10/12/22 7:42 AM) Dry Weight 136 kg (10/12/22 10:08 AM) 136 kg (10/12/22 7:42 AM) 136 kg (10/11/22 10:15 PM) Social History Social History Type Response Smoking Status 10 or more cigarette s (1/2 pack or more)/day in last 30 days entered on: 09/07/18 Sex Note * Misty Cutler MD: PERFORM Event Display: Patient Education Leaflets Authored Date: [id number] Laceration, All Closures ?? [id number] Laceration, All Closures A??laceration is a cut through the skin. This will usually need stitches or nelson if it's deep. Minor cuts may be treated with a surgical tape closure or??skin glue. Home care ??? Your healthcare provider may prescribe an antibiotic. This is to help prevent infection. Followall instructions for taking this medicine. Take the medicine every day until it's gone, or you are told to stop. You should not have any left over. ??? The provider may prescribe medicines for pain. If no pain medicines were prescribed, you can use drwj-bfx-cvpoolo pain medicines. Follow instructions for taking any pain medicines. Talk with your provider before using these medicines if you have chronic liver or kidney disease, or ever had a stomach ulcer or digestive bleeding. ??? Follow the provider???s instructions on how to care for the cut. ??? Keep the wound clean and dry. Don't get the wound wet until you are told it's OK to do so.??If the area gets wet, gently pat it dry with a cleancloth. Replace the wet bandage with a dry one. ??? If a bandage was applied and it becomes wet or dirty, replace it. Otherwise, leave it in place for the first 24 hours. ??? Caring for stitches or nelson: Once you no longer need to keep them dry, clean the wound daily. First remove the bandage. Then wash the area gently with soap and clean running water, or as directed by the??provider. Use a wet cotton swab to loosen and remove any blood or crust that forms. After cleaning, apply a thin layerof antibiotic ointment if advised. Then put on a new bandage unless you are told not to. ??? Caringfor skin glue: Don???t apply liquid, ointment, or cream on the wound while the glue is in place.??Don't do activities that cause heavy sweating. Protect the wound from sunlight.??Don't scratch, rub, or pick at the adhesive film. Don't place tape directly over the film.??The glue should peel off naturally in 5 to 10 days.? Caring for surgical tape: Keep the area dry. If it gets wet, blot it dry with a clean towel. Surgical tape often falls off in 7 to 10 days. If it has not fallen off after10 days, you can take it off yourself. Put mineral oil or petroleum jelly on a cotton ball and gently rub the tape until it's removed. ??? Once you can get the wound wet, you may shower as normal. Don't soak the wound in water (no tub baths or swimming). ??? Even with correct treatment, a wound infection may sometimes occur. Check the wound daily for signs of infection listed below. Scalp wounds Follow your healthcare provider's specific instructions on showering. During the first 2 days, you may carefully rinse your hair in the shower to remove blood, glass, or dirt particles. After 2days, you may shower and shampoo your hair normally. Don't soak your scalp in the tub or go swimming untilthe stitches or nelson have been removed. Talk with your healthcare provider before applying any antibiotic ointment to the wound. Mouth wounds Eat soft foods to reduce pain. If the cut is inside your mouth, clean by rinsing after each meal and at bedtime with a mixture of equal parts water and hydrogen peroxide (don't swallow!). Or you can use a cotton swab to directly apply hydrogen peroxide onto the cut. You may also be prescribed a chlorhexidine solution to rinse with. Mouth wounds can be painful when eating. You may use an tcwc-gfg-hhsslde local numbing solution for pain relief. If this isn't available, you may use any numbing solution intended for teething babies. You may apply this directly to the sores with a cotton-tip swab or with your clean finger. ?? Follow-up care Follow up with your healthcare provider as advised.??Ask your provider how long stitches should be left in place. Be sure to return for stitch removal as directed. If dissolving stitches were used inthe mouth, these should fall out or dissolve without the need for removal. If tape closures were used, remove them yourself when your provider advises if they haven't fallen off on their own. If??skin glue was used, the film will wear off by itself. Generally, you should keep healing wounds out of direct sunlight for the first couple of months to try to lessen scarring. ?? When to get medical advice Call your healthcare provider right away??if any of these occur: ??? Signs of infection, including increasing pain in the wound, increasing wound redness or swelling, or pus or bad odor coming from the wound ??? Fever of??100.4??F (38.??C)??or higher, or as advised by your provider ??? Chills ??? Stitches or nelson come apart or fall out, or surgical tape falls off before 7 days and the wound appears to be reopening ??? Wound edges reopen ??? Wound changes colors ??? Numbness around the wound after any numbing medicine should have worn off ??? Decreased movement around the injured area ?? Call 911 Call 911??if you can't control the wound bleeding??with direct pressure. ?? Last Reviewed Date: 2021 ?? [id number] [employer]. All rights reserved. This information is not intended as a substitute for professional medical care. Always follow your healthcare professional's instructions. ?? * Misty Cutler MD: PERFORM Event Display: Patient Education Leaflets Authored Date: [id number] Laceration of an Arm or Leg: Skin Glue ?? [id number] Laceration of an Arm or Leg: Skin Glue A laceration is a cut through the skin. You have a laceration that has been closed with skin glue. This is used on cuts that have smooth edges that can easily be brought back together and are not infected. It's best used on straight, clean cuts on areas that don't get a lot of tension. You may need a tetanus shot. This is given if you have no record of a shot, and the object that caused the cut may lead to tetanus. Home care ??? Follow all instructions for taking any medicines prescribed. o Your healthcare provider may prescribe an antibiotic. This is to help prevent infection. Take the medicine every day untilit's gone or you are told to stop. You should not have any left over. o Your healthcare provider may prescribe medicines for pain. ??? Follow the healthcare provider???s instructions on how to care for the cut. ??? Don't cover the cut with a bandage. No bandage is needed. Skin glue peels off on itsown within 5 to 10 days. Most skin wounds heal within 10 days. ??? Keep the wound clean. You may shower or bathe as usual, but don't soak the wound. Don't use soaps, lotions, or ointments on the wound area. These may dissolve the glue too soon. Don't scrub the wound. After bathing, pat the wound dry with a soft towel. ??? Don't scratch, rub, or pick at the film. Don't place tape directly over thefilm. ??? Don't put??liquids such as peroxide, ointments, or creams on the wound while the skin glue is in place. Many oil- based products can weaken and dissolve the glue. ??? Don't do any??activities that may reinjure your wound. ??? Don't do any activities that cause heavy sweating. Protect the wound from sunlight. Sunlight can make scarring worse. After the wound has healed, apply sunscreen tothe area to help minimize scarring. ??? Most skin wounds heal without problems. But an infection sometimes occurs even with proper treatment. Watch for the signs of infection listed below. ?? Follow-up care Follow up with your healthcare provider as advised. ?? When to get medical advice Call your healthcare provider right away??if any of these occur: ??? Wound bleeding is not controlled by direct pressure ??? Signs of infection. These include increasing pain in the wound, increasingwound redness or swelling, or pus or bad odor coming from the wound. ??? Fever of??100.4??F (38.??C)??or higher, or as directed by your healthcare provider ??? Wound edges reopen ??? Wound color changes ??? Numbness around the wound? Decreased movement around the injured area ?? Last Reviewed Date: 2022 ?? [id number] [employer]. All rights reserved. This information is not intended as a substitute for professional medical care. Always follow your healthcare professional's instructions. ?? Patient Care team information Care Team Personnel Name: Natasha Dickey RN Position: S RN Member Role: Primary Care Nurse Name: Anny Arnett Position: [facility] Associate Professional Member Role: PCP Address: Address: [address] [place] [address] Pediatric Emergency Medicine [address] Name: Genesis Lea RN Position: S RN [...] Care Nurse Name: Trinidad Ordonez RN Position: S RN Member Role: Primary Care Nurse Name: Mariaelena Collazo RN Position: [facility] RN Member Role: Primary Care Nurse Name: Nikki Croft RN Position: [facility] RN Member Role: Primary Care Nurse Name: John Cuellar RN Position: [facility] RN Member Role: Primary Care Nurse Name: Christos Godoy RN Position: [facility] RN Member Role: Primary Care Nurse Name: Karyna Morin RN Position: [facility] ED RN W/OE and Tasks Member Role: Patient Care Provider Name: Misty Cutler MD Position: [facility] ED Medicine MD Member Role: Admitting Physician Address: Address: [address] [place] [address] Name: Kody Chavez RN Position: [facility] ED RN W/OE and Tasks Member Role: Patient Care Provider Care Team Related Persons Name: [employer] DES[employer] ENGINE[employer]I Address: [address] [place] [address] Name: YULIYA MORA Address: [address] [place] [address] Name: SUNDAY MORA Address: home [address] [place] [address]
--- OUTSIDE RECORDS SUMMARY | 2023-06-07 19:10 | XMS_ITS | Continuity of Care Document ---
Author Organization [facility] Address [address] [place] [address]- Care Team Providers Care Licensed Practical Nurse Instructor Name Role Phone Bela Dumont MD Primary Care Physician [facility]counter [facility] [place] Date(s): 02/24/20 - 02/25/[address] [address]- Encounter Diagnosis Borderline personality disorder(Final) - 02/24/20 Depressed mood(Final) - 02/24/20 Discharge Disposition: A-D/C Home Attending Physician: Glenda [...] Maintenance,04/30/19 13:49:00 EDT, Route to Pharmacy Electronically, [facility]/pharmacy #[id number], 175, cm, 04/30/19 12:12:00 [...] Range]: 1 2 3 Height 168 cm (02/25/20 8:40 AM) 168 cm (02/25/20 4:42 AM) 168 cm (02/24/20 9:36 PM) Weight 127 kg (02/25/20 8:40 AM) 127 kg (02/25/20 4:42 AM) 127 kg (02/24/20 9:36 PM) Oxygen Saturation [94-100 %] 96 % (02/25/20 8:40 AM) 98 % (02/25/20 4:42 AM) 98 % (02/24/20 9:36 PM) Pulse Rate [55-90 bpm] 78 bpm (1/13/21 8:40 AM) 73 bpm (02/25/20 4:42 AM) 118 bpm *H* (02/24/20 9:36 PM) Body Mass Index [18.5-24.99] 45 *>HHI* (02/25/20 8:40 AM) 45 *>HHI* (02/25/20 4:42 AM) Blood Pressure [90-138/55-84 mm Hg] 107/43mm Hg (02/25/20 8:40 AM) 103/69mm Hg (02/25/20 4:42 AM) 136/88mm Hg (02/24/20 9:36 PM) Respiratory Rate [16-30 br/min] 20 br/min (02/25/20 8:40 AM) 18 br/min (02/25/20 4:42 AM) 15 br/min *L* (02/24/20 9:36 PM) Temperature [96.8-100.4 DegF] 98.4 DegF (02/25/20 8:40 AM) 97.2 DegF (02/25/20 4:42 AM) 98.9 DegF (02/24/20 9:36 PM) Mode of Delivery (Oxygen) Room air (02/25/20 8:40 AM) room air (02/25/20 4:42 AM) Room air (02/24/20 9:36 PM) Blood pressure sites Arm, right (02/25/20 8:40 AM) Arm, right (02/24/20 9:36 PM) Temperature Route Oral (02/25/20 8:40 AM) Oral (02/25/20 4:42 AM) Oral (02/24/20 9:36 PM) Dry Weight 127 kg (02/25/20 8:40 AM) 127 kg (02/25/20 4:42 AM) 127 kg (02/24/20 9:36 PM) Weight Obtained Via Patient/family state d (02/24/20 9:36 PM) Social History Social History Type Response Smoking Status 10 or more cigarette s (1/2 pack or more)/day in last 30 days entered on: 09/07/18 Sex
--- OUTSIDE RECORDS SUMMARY | 2023-06-07 19:10 | XMS_ITS | Continuity of Care Document ---
Author Organization [facility] Address [address] [place] [address]- Care Team Providers Care Bomb Technician Name Role Phone Yovanny RILEY, Nikki Primary Care Physician [place] [facility] [place]): [place]23 - 02/10/[address] [address]- Encounter Diagnosis Tylenol overdose(Final) - 02/08/23 Suicide attempt(Final) - 02/08/23 Discharge Disposition: Transferred to short-term general hospit Attending Physician: Edward ESTES, Wesley Church Admitting [...] 3 Refills, Maintenance, 01/30/23 9:38:00 EST, Capsule, [facility]-[id number], Partial fill upon patient request if the prescription is for a schedule II opioid drug., 168, cm, 01/29/23 21:2... Start Date: 01/30/23 Status: Ordered haloperidol 5 mg oral tablet 5 mg, 1, tablet, By Mouth, 2 times a day, PRN, # 180 tablet, Refills 0, Maintenance, Anxiety, 02/10/23 15:42:00 EST, Partial fill upon patient request if the prescription is for a schedule II opioid drug. Start Date: 02/10/23 Status: Ordered methylphenidate 27 mg oral tablet, extended release = 27 mg, By Mouth, Daily, # 28 tablet, 0 Refills, Maintenance, 01/30/23 9:40:00 EST, ER Tablet, Partial fill upon patient request if the prescription is for a schedule II opioid drug. Start Date: 01/30/23 Status: Ordered prazosin 1 mg oral capsule 1 mg, By Mouth, Daily at bedtime, # 7 capsule, Refills 3, Tot. Refills 3, Maintenance, 01/30/23 9:38:00 EST, Route to Pharmacy Electronically, [facility]-[id number], Partial fill upon patient request if the prescription is for a schedule... Start Date: 01/30/23 Status: Ordered prazosin 1 mg oral capsule 1 mg, Capsule, By Mouth, 02/10/23 0:40:00 EST Start Date: 02/10/23 Stop Date: 02/10/23 Status: Completed topiramate 25 mg oral tablet 1 tablet = 25 mg, By Mouth, Daily, # 7 tablet, 3 Refills, Maintenance, 01/30/23 9:39:00 EST, Tablet, [facility]-[id number], Partial fill upon patient request if the [...] Range]: 1 2 3 Height 168 cm (02/10/23 11:51 AM) 168 cm (12/29/23 11:53 PM) 168 cm (02/09/23 7:35 PM) Weight 149.4 kg (02/09/23 5:51 PM) 100 kg (02/09/23 12:27 PM) 100 kg (02/08/23 7:20 PM) Oxygen Saturation [94-100 %] 97 % (02/10/23 11:51 AM) 100 % (02/09/23 11:53 PM) 97 % (02/09/23:35 PM) Pulse Rate [55-90 bpm] 79 bpm (02/10/23 11:51 AM) 79 bpm (02/09/23 11:53 PM) 85 bpm (02/09/23:35 PM) Body Mass Index [18.5-24.99 kg/m2] 52.93 kg/m2 *>HHI* (02/09/23 5:51 PM) 35.43 kg/m2 *>HHI* (02/09/23 12:27 PM) Blood Pressure [90-138/55-84 mm Hg] 146/82mm Hg *H* (02/10/23 11:51 AM) 121/60mm Hg (02/10/23 12:49 AM) 121/60mm Hg (02/09/23 11:53 PM) Respiratory Rate [16-30 br/min] 17 br/min (02/10/23 11:51 AM) 20 br/min (02/09/23 11:53 PM) 16 br/min (02/09/23 7:35 PM) Temperature [96.8-100.4 DegF] 98.3 DegF (02/10/23 11:51 AM) 98.0 DegF (02/09/23 11:53 PM) 98.4 DegF (02/09/23:35 PM) Liters per Minute 2 L/min (02/09/23 11:53 PM) 2 L/min (02/09/23 7:35 PM) 2 L/min (02/09/23 5:51 PM) Mode of Delivery (Oxygen) Room air (02/10/23 11:51 AM) Nasal cannula (02/09/23 11:53 PM) Nasal cannula (02/09/23 7:35 PM) Blood pressure sites Arm, left (02/10/23 11:51 AM) Arm, left (02/09/23 11:53 PM) Arm, left (02/09/23 7:35 PM) Temperature Route Oral (02/10/23 11:51 AM) Oral (02/09/23 11:53 PM) Oral (02/09/23 7:35 PM) Dry Weight 149.4 kg (02/09/23 5:51 PM) 100 kg (02/09/23 12:27 PM) 100 kg (02/08/23 7:20 PM) Weight Obtained Via Bed scale (02/09/23 5:51 PM) Dry Weight Obtained Via Bed scale (02/09/23 5:51 PM) Social History Social History Type Response Smoking Status 10 or more cigarette s (1/2 pack or more)/day in last 30 days entered on: 09/07/18 Sex Admission evaluation note * Tanner Travis: PERFORM Event Display: Admission Note Authored Date: Patient: ??IDRIS MORA ? Age:??22 Years?Sex:??Female?:??2000?? Chief Complaint/Reason for Consultation Took 200 600mg tylenols about 40 mins ago in a attempt to harm herself History of Present Illness 22-year-old?female with a significant psychiatric history, including alcohol abuse, borderline personality, anxiety, and depression, presented to the ED following a suicide attempt by ingesting approximately 200 Tylenol pills (650 mg each) around 6:30 PM on the day of presentation. She experienced nausea and vomiting post-ingestion and continued to express suicidal ideation, but denied fever, shortness of breath, chest pain, coingestion of other substances, hallucinations, or homicidal ideation. Upon physical examination, she??was??alert but in mild distress, with a heart rate of 139 bpm indicating tachycardia and normal respiratory rate and blood pressure. No abnormal findings were noted inthe systemic examination. The patient's social history revealed current alcohol use, unemployment, poor exercise condition, living independently with housemates, and a smoking habit.??Initial management involved starting N-acetylcysteine (NAC) therapy for the Tylenol overdose, as the patient was less than 4 hours post-ingestion and already vomiting, making activated charcoal less viable. Consultation with poison control confirmed this plan. Lab results showed a significantly elevated Tylenol level of 431 mg/L, confirming the overdose. Other laboratory values were within normal limits, except for a slightly low bicarbonate level and a slightly high glucose level. Electrocardiogram??showed sinus tachycardia with normal intervals and no signs of ischemia. Given the severity of the Tylenol overdose and ongoing psychiatric concerns, the patient was admitted for continued administration of NAC and eventual psychiatric consultation.?? Review of Systems All other systems were reviewed and are negative. Objective Measurements?? Height: 168 cm (02/08/23) Weight: 100 kg (02/08/23) Dry Weight: 100 kg (02/08/23) ? Vital Signs?? Temperature: 97 DegF (02/09/23 00:00:00) Temperature Route: Oral (02/09/23 00:00:00) Pulse Rate:??103 bpm??High (02/09/23 00:00:00) Respiratory Rate: 26 br/min (02/09/23 00:00:00) Systolic Blood Pressure: 138 mm Hg (02/09/23 00:00:00) Diastolic Blood Pressure:??50 mm Hg??Low (02/09/23 00:00:00) Pulse Pressure: 88 mm Hg (02/09/23 00:00:00) Oxygen Saturation: 97 % (02/09/23 00:00:00) Liters per Minute: 2 L/min (02/09/23 00:00:00) Mode of Delivery (Oxygen): Nasal cannula (02/09/23 00:00:00) ? Pain Scores 1 - 10 Pain Scale Score: 0 (19:20) ? Ventilator Settings?? No qualifying data available. ? Intake/Output? 02/08 19:10 02/09 07:00 02/08 07:00 02/07 07:00 02/06 07:00 ?? 02/09 02:25 02/09 02:25 02/09 06:59 02/08 06:59 02/07 06:59 Intake ?801.5 ?0 ?801.5 ?0 ?0 Output ?0 ?0 ?0 ?0 ?0 Net Total ?801.5 ?0 ?801.5 ?0 ?0 ? Precautions Constant Auto Body Worker ? [place] Coma Scale [place] Coma Score: 15 (02/08/23 19:20:00) Motor Response-Adult: Obeys commands (02/08/23 19:20:00) Response Eye Opening: Spontaneously (02/08/23 19:20:00) Verbal Response-Adult: Oriented and converses (02/08/23 19:20:00) ? Mobility & Ambulation Level Mobility & Ambulation Level?? No qualifying data available. ?? Therapeutic Activity Therapeutic Activities/Mobility/Balance?? No qualifying [...] focal neurological deficits. Moves all extremities spontaneously. ?? Psychiatric: Normal mood and affect. Assessment/Plan Diagnoses Morbid obesity ??(E66.01) Suicide attempt ??(T14.91XA) Tylenol overdose ??(T39.1X1A) ?? Morbid obesity (E66.01):?? Suicide attempt (T14.91XA):?? Tylenol overdose (T39.1X1A):?? On arrival??patient??labs show Normal LFTs with acetaminophen level of 431. Patient was started on NAC protocol. Repeat labs at 4 hours showed no elevation of LFTs and slightly downtrending Tylenol level of 348. Poison control was contacted by ED and agree with plan and also recommended fomepizole which was given in the ED. Vital signs remained relatively stable. Patient was admitted to telemetry. Continue with NAC protocol. Monitor LFTs and acetaminophen level. Follow-up with poison control. Continue with IV fluids. Monitor electrolytes and supplement accordingly. Constant tobacco flavorer. company laundry worker consult. Case management consult. Psych consult. ?? Resume home management for chronic conditions. ?? VTE Prophylaxis:??As per??VTE prophylaxis guidelines. ?VTE Prophylaxis Assessment:??Risk Level documented as Low Risk ?? Code Status:??Full code. ?Order Code Status:??Code Status Ordered ?? Discharge Planning:? Histories Allergies Allergies ?(Active and Proposed Allergies [...] Sister: Depression ? Travel History Travel Outside [facility]: No ? Medications Home Medications Duloxetine (duloxetine 30 mg oral enteric coated capsule)?1?capsule?30?Milligram?By Mouth?Daily Methylphenidate (methylphenidate 27 mg oral tablet, extended release)?27?Milligram?By Mouth?Daily Oseltamivir (oseltamivir 75 mg oral capsule)?75?Milligram?By Mouth?Daily Prazosin (prazosin 1 mg oral capsule)?1?Milligram?By Mouth?Daily at bedtime Topiramate (topiramate 25 mg oral tablet)?1?tab(s)?25?Milligram?By Mouth?Daily ? Inpatient Medications Medications (12) Active SCHEDULED: (2) Acetylcysteine Inj 6 Gm/30mL (Acetadote 20% IVPB) ??10,000 mg, IVPB, Once NaCl 0.9% Flush 3ml (NaCL 0.9% Flush) ??3 mL, IV Push, Every 8 hours CONTINUOUS: (0) PRN: (10) Acetaminophen 325 mg Tablet (Acetaminophen Tablet) ??650 mg, By Mouth, Every 4 hours Dextromethorphan-Guaifenesin 20 mg-200 mg/10 mL Liqu UD (Robitussin DM Liquid) ??10 mL, By Mouth, Every 4 hours Docusate Sodium 100 mg Capsule (Docusate Sodium Capsule) ??100 mg 1 capsule, By Mouth, 2 times a day Melatonin 3 mg Tablet (Melatonin Tablet) ??3 mg, By Mouth, Daily at bedtime NaCl 0.9% Flush 3ml (NaCL 0.9% Flush) ??3 mL, IV Push, Every 8 hours Ondansetron 2mg/mL Inj (2mL Vial) (Ondansetron Inj) ??4 mg, IV Push Slowly, Every 30 minutes Ondansetron 2mg/mL Inj (2mL Vial) (Ondansetron Inj) [...] Recent Labs BLOOD COUNT & DIFF WBC 10.0 k/mm3 ()?? 02/08/2023 20:41 RBC 4.89 m/mm3 ()?? 02/08/2023 20:41 Hgb 13.7 Gm/dL ()?? 02/08/2023 20:41 Hct 42.6 % ()?? 02/08/2023 20:41 MCV 87.1 femtoliters ()?? 02/08/2023 20:41 MCH 28.0 pg ()?? 02/08/2023 20:41 MCHC 32.2 g/dL (Low)?? 02/08/2023 20:41 Platelet Count 205 k/mm3 ()?? 02/08/2023 20:41 RDW-SD 43.3 femtoliters ()?? 02/08/2023 20:41 MPV 11.9 femtoliters ()?? 02/08/2023 20:41 Nucleated RBC (Automated) 0.0 #/100 WBC'S ()?? 02/08/2023 20:41 Abs. NRBC 0.0 k/mm3 ()?? 02/08/2023 20:41 Abs. Neut 6.3 k/mm3 ()?? 02/08/2023 20:41 Abs. Lymph 2.6 k/mm3 ()?? 02/08/2023 20:41 Abs. [place] 0.8 k/mm3 ()?? 02/08/2023 20:41 Abs. Eo 0.2 k/mm3 ()?? 02/08/2023 20:41 Abs. Baso 0.1 k/mm3 ()?? 02/08/2023 20:41 Neut % 63.0 % ()?? 02/08/2023 20:41 Lymph % 26.2 % ()?? 02/08/2023 20:41 [place] % 8.2 % ()?? 02/08/2023 20:41 Eos % 1.6 % ()?? 02/08/2023 20:41 Baso % 0.6 % ()?? 02/08/2023 20:41 Imm Gran 0.4 % ()?? 02/08/2023 20:41 Abs. Imm Gran 0.0 k/mm3 ()?? 02/08/2023 20:41 ?? CHEM GENERAL Sodium 139 mmol/L ()?? 02/08/2023 20:41 Potassium 3.8 mmol/L ()?? 02/08/2023 20:41 Chloride 106 mmol/L ()?? 02/08/2023 20:41 Bicarbonate Level 16 mmol/L (Low)?? 02/08/2023 20:41 Anion Gap 17 ()?? 02/08/2023 20:41 Glucose Level 198 mg/dL (High)?? 02/08/2023 20:41 BUN 17 mg/dL ()?? 02/08/2023 20:41 Creatinine-Blood 0.5 mg/dL ()?? 02/08/2023 20:41 Estimated GFR Creatinine 135 ML/MIN/1.73 M2 ()?? 02/08/2023 20:41 Calcium 8.9 mg/dL ()?? 02/08/2023 20:41 Alkaline Phosphatase 71 units/L ()?? 02/09/2023 00:17 AST (SGOT) 22 units/L ()?? 02/09/2023 00:17 ALT (SGPT) 29 units/L ()?? 02/09/2023 00:17 Bilirubin, Total 0.2 mg/dL ()?? 02/09/2023 00:17 ?? COAG INR 1.0 ()?? 02/08/2023 20:41 Protime (PT) 10.3 seconds ()?? 02/08/2023 20:41 ?? ENDOCRINE/TUMOR MARKER TSH 1.67 uIU/mL ()?? 02/08/2023 20:41 Blood <1 mIU/mL ()?? 02/08/2023 20:41 ?? FLUID STUDIES Hold Other SPECIMEN DISCARDED AFTER 1 WEEK ()?? 02/08/2023 20:41 ?? MISC. CHEMISTRY Hold Gel Top SPECIMEN DISCARDED AFTER 1 WEEK ()?? 02/08/2023 20:41 ?? TOXICOLOGY/TDM Ethanol, Serum or Plasma NONE DETECTED mg/dL (N)?? 02/08/2023 20:41 Salicylate Level <0.3 mg/dL (Low)?? 02/08/2023 20:41 Acetaminophen Level 336 mg/L (Critical)?? 02/09/2023 00:17 ?? URINE OTHER Est Creatinine Clearance 163.31 mL/min ()?? 02/08/2023 21:05 ? Abnormal Labs ?? BLOOD COUNT & DIFF ??Abs. Imm Gran ??0.0 k/mm3 () ??02/08/2023 20:41 ??Abs. NRBC ??0.0 k/mm3 () ??02/08/2023 20:41 ??Imm Gran ??0.4 % () ??02/08/2023 20:41 ??MCHC ??32.2 g/dL (Low) ??02/08/2023 20:41 ??Nucleated RBC (Automated) ??0.0 #/100 WBC'S () ??02/08/2023 20:41 ??RDW-SD ??43.3 femtoliters () ??02/08/2023 20:41 ? CHEM GENERAL ??Bicarbonate Level ??16 mmol/L (Low) ??02/08/2023 20:41 ??Estimated GFR Creatinine ??135 ML/MIN/1.73 M2 () ??02/08/2023 20:41 ??Glucose Level ??198 mg/dL (High) ??02/08/2023 20:41 ? ENDOCRINE/TUMOR MARKER ??Blood ??<1 mIU/mL () ??02/08/2023 20:41 ? FLUID STUDIES ??Hold Other ??SPECIMEN DISCARDED AFTER 1 WEEK () ??02/08/2023 20:41 ? MISC. CHEMISTRY ??Hold Gel Top ??SPECIMEN DISCARDED AFTER 1 WEEK () ??02/08/2023 20:41 ? TOXICOLOGY/TDM ??Acetaminophen Level ??336 mg/L (Critical) ??02/09/2023 00:17 ??Ethanol, Serum or Plasma ??NONE DETECTED mg/dL (N) ??02/08/2023 20:41 ??Salicylate Level ??<0.3 mg/dL (Low) ??02/08/2023 20:41 ? Note: Critical results are displayed in red. ? Blood Glucose Trend Glucose Level:??198 mg/dL??High (02/08/23 20:41:00) ? Coagulation Profile INR: 1 (20:41) Protime (PT): 10.3 seconds (20:41) ?? LFT Alkaline Phosphatase: 71 units/L (00:17) ALT (SGPT): 29 units/L (00:17) AST (SGOT): 22 units/L (00:17) Bilirubin, Total: 0.2 mg/dL (00:17) Protime (PT): 10.3 seconds (20:41) ?? Urinalysis Est Creatinine Clearance: 163.31 mL/min (21:05) ? Blood Gases?? No qualifying data available. ?? EKG study * Event Display: ECG 12-Lead Authored Date: Please click on pdf link to open report * Event Display: ECG 12-Lead Authored Date: Ventricular Rate: 130 BPM Atrial Rate: 130 BPM P-R Interval: 144 ms QRS Duration: 88 ms Q-T Interval: 330 ms QTC Calculation(Bazett): 485 ms P Blanchard: 59 degrees R Blanchard: 39 degrees T Blanchard: 26 degrees Sinus tachycardia Otherwise normal ECG When compared with ECG of 08-JAN-2023 13:36, No significant change was found Confirmed by CHRISTEN NÚÑEZ ([id number]) on 02/09/2023 7:43:34 AM [place]: [facility] Progress note * Sheridan Hancock RN: PERFORM, SIGN, VERIFY Event Display: [facility] Authored Date: Patient: IDRIS MORA Age: 22 years Sex: Female : 2000 Associated Diagnoses: None Author: Sheridan Hancock RN Findings Problem Related to Alteration in Safety : Alteration in Safety/new 02/10/2023 7:00 EST Alteration in Safety Related to Toxic Ingestion, Suicidal ideation, Other: Tylenol overdose Goals & Outcomes, Safety Psychosocial support will be provided to Pt/S.O. as needed, Pt/caregiver will state understanding of plan/goals of care, Pt will remain safe & injury free, Pt/caregiver will verbalize understanding of the D/C plan, Pt airway will be patent while recovering from ingestion Interventions, Safety Provide info on community resources for education, support, Provide teaching as needed, Maintain suicide precautions until cleared by psychiatry Goals/Interventions, Safety Yes Safety, Problem Start 02/10/2023 1:37 Reviewed plan with, Safety Patient Patient Progression, Safety Pt progressing according to plan . Nursing Data Cardiac Data. : Cardiac Data. 02/10/2023 9:55 EST Cardiac Rhythm Normal sinus rhythm, Sinus tachycardia Dorsalis Pedis Pulse, Left Normal Dorsalis Pedis Pulse, Right Normal Ankle, left 1+ trace Ankle, right 1+ trace radiation monitor Yes Cardiovascular WNL except . Musculoskeletal Data. : Musculoskeletal Data. 02/10/2023 9:55 EST Musculoskeletal Symptoms Weakness Musculoskeletal WNL except . Neurological Data. : Neurological Data. 02/10/2023 9:55 EST Neuro WNL . Vital Signs : VITAL SIGNS SECTION 02/10/2023 11:51 EST Temperature 98.3 DegF Temperature Route Oral Pulse Rate 79 bpm Respiratory Rate 17 br/min Systolic Blood Pressure 146 mm Hg H Diastolic Blood Pressure 82 mm Hg Blood pressure sites Arm, left Mean Arterial Pressure 103 mm Hg Pulse Pressure 64 mm Hg Oxygen Saturation 97 % Mode of Delivery (Oxygen) Room air . Narrative/Incidental Pt A/O x 4. pt goes by the name Dudley and uses they/them pronouns. pt denies CP, SOB or dizziness this AM. reports chronic generalized fatigue and muscle soreness throughout body. NSR/ST on monitor, HR in 90s-low 100s. LSC, titrated to RA and pt tolerating well. sats maintained >94%. SB assist with cane. +BS, abdomen soft, round nontender. Last BM yesterday. pt declines bowel meds when offered. voiding concentrated yellow urine via bathroom. denies dysuria/issues voiding. pt endorses some fleeting thoughts of suicidality, states they have no plan nor intent. 1:[address] Seen by SKIN DRIER. skin is intact. healed scars to L forearm noted on assessment. Bed alarmed in lowest locked position. call wilburn within reach and pt able to make needs known. pt transfered to MHU this afternoon, verbalizes understanding and is agreeable to plan of care. . * Eulalio Nuñez RN: VERIFY, PERFORM, SIGN Event Display: Progress Note Hospital Authored Date: [id number] Patient: IDRIS MORA Age: 22 years Sex: Female : 2000 Associated Diagnoses: None Author: Eulalio Nuñez RN Findings Narrative/Incidental Pt alert and oriented x 4, pt on 1:1 supervision r/t S.I. statements. When assessed pt stating SI thoughts but no plan. Pt Neuro wnl. Pt on radiation monitor reading sinus rhythm to sinus tachycardia. Pt with clear lung sounds on 2L via nc. Pt with IV access to left hand and right forearm. Pt VSS. Ptstated no pain to author. Poison contacted in regard to lab values. Call wilburn within reach, bed locked and in low position.. * Mckayla Jensen RN: PERFORM, SIGN, VERIFY Event Display: Progress Note Hospital Authored Date: [id number] Patient: IDRIS MORA Age: 22 years Sex: Female : 2000 Associated Diagnoses: None Author: Mckayla Jensen RN Findings patient arrived around 1800 on the floor, alert oriented x4, neuro are intact, calm and cooperative with care, constant tobacco flavorer at bed side for safety, patient still with SI thought with no plan in place, KATHRYN Rodrigez notified, Note * Sheridan Hancock RN: PERFORM Event Display: Discharge/Transfer Note Hospital Authored Date: [id number] Nursing Discharge Note Entered On: 02/10/2023 16:58 EST Performed On: 02/10/2023 16:57 EST by Sheridan Hancock RN Nursing Discharge Note 2 Discharge Time : 02/10/2023 13:35 EST Discharge Level of Care at Discharge : Psychiatric Facility/Unit Patient Left Unit Via : Ambulatory Patient Accompanied Off Unit with : Responsible adult DC Instructions Provided & Signed by Pt : No Patient Understands D/C Instructions : No Patient Instructions Discharge Signed : No Instructions for Discharge Comments : pt transfered to MHU. no d/c instructions provided. Did Pt have Specialty Bed or Wound Vac : No Sheridan Hancock RN - 02/10/2023 16:57 EST * Edward ESTES, [employer] Church: PERFORM Event Display: Discharge/Transfer Note Hospital Authored Date: [id number] Patient: ??IDRIS MORA ? Age:??22 Years?Sex:??Female?:??2000?? Patient Information Discharge Location: [facility] [place] Primary Care Physician: Nikki Hairston NP Admit Date/Time: 02/09/23 01:07 Discharge Disposition Discharge Disposition: ??MHU Discharge Diagnosis Morbid obesity (E66.01) Suicide attempt (T14.91XA) Tylenol overdose (T39.1X1A) ?? _ Discharge Medications Duloxetine (duloxetine 30 mg oral enteric coated capsule)?1?capsule?30?Milligram?By Mouth?Daily Methylphenidate (methylphenidate 27 mg oral tablet, extended release)?27?Milligram?By Mouth?Daily Prazosin (prazosin 1 mg oral capsule)?1?Milligram?By Mouth?Daily at bedtime Topiramate (topiramate 25 mg oral tablet)?1?tab(s)?25?Milligram?By Mouth?Daily ? Quality Measures Tobacco Use Treatment:?declines ?? Medications Started none Medications Discontinued none Doses Changed none Allergies Allergies ?(Active and Proposed Allergies Only) Thorazine? (Severity: Unknown severity, Onset: Unknown) ?Reactions: Skin rash Geodon? (Severity: Unknown severity, Onset: Unknown) ?Reactions: full body tremors Trileptal? (Severity: Unknown severity, Onset: Unknown) ? PCP Follow-Up/Heads-Up outpatient psych care Future Appointments Sunday 2:30 PM EST ?? With: Bret PERALTA, Bridget Mcgill Where: [facility] [address] [place] [id number]- Status: Pending Hospital Course Idris is a 22-year-old female with past medical history significant for borderline personality disorder, anxiety and depression who has been admitted with a suicide attempt with overdose of Tylenol (200 tablets 650 mg each) now being monitored closely on NAC protocol, LFT monitoring and Tylenol level normalized, follow-up with poison control. Patient is medically cleared, evaluated by SKIN DRIER and accepted for admission to MHU. ?? Morbid obesity (E66.01): ??Suicide attempt (T14.91XA): ??Tylenol overdose (T39.1X1A): Borderline personality disorder ?? Management per psych team ?? Objective Vital Signs?? Temperature: 98 DegF (02/09/23 23:53:00) Temperature Route: Oral (02/09/23 23:53:00) Pulse Rate: 79 bpm (02/09/23 23:53:00) Respiratory Rate: 20 br/min (02/09/23 23:53:00) Systolic Blood Pressure: 121 mm Hg (02/10/23 00:49:00) Diastolic Blood Pressure: 60 mm Hg (02/10/23 00:49:00) Blood pressure sites: Arm, left (02/09/23 23:53:00) Mean Arterial Pressure: 80 mm Hg (02/09/23 23:53:00) Pulse Pressure: 61 mm Hg (02/09/23 23:53:00) Oxygen Saturation: 100 % (02/09/23 23:53:00) Liters per Minute: 2 L/min (02/09/23 23:53:00) Mode of Delivery (Oxygen): Nasal cannula (02/09/23 23:53:00) Early Warning Score: 1 (02/10/23 05:22:25) ? . Physical Exam Constitutional: Alert, in [...] motion.. Psychiatric: Normal mood and affect Consultants Behavioral health Pending Results Acetaminophen Level ordered on 02/09/2023 Add On Lab Order ordered on 02/08/2023 INR ordered on 02/09/2023 O2 SAT Venous ordered on 02/09/2023 Post Discharge Care Diet: ??Regular Diet ?? Activity: ??increase as tolerated ?? Code Status: ??Full Resuscitation ?? Condition: ??stable ?? Prognosis: ??Fair ?? Discharge ?02/10/23 11:38:00 EST Discharge Prescriptions ?ePrescribed, 02/10/23 11:38:00 EST 20??minutes spent on discharge Patient Care team information Care Team Personnel Name: Garcia Baez RN Position: [facility] RN Member Role: Primary Care Nurse Name: Leah Almonte RN Position: [facility] RN Member Role: Primary Care Nurse Name: Natasha Dickey RN Position: [facility] RN Member Role: Primary Care Nurse Name: Kellee Garvin RN Position: [facility] RN Member Role: Primary Care Nurse Name: Maegan Diza RN Position: [facility] RN Member Role: Primary Care Nurse Name: Genesis Lea RN Position: [facility] RN Member Role: Primary Care Nurse Name: Nikki Hairston NP Position: [facility] PCO Associate Professional Member Role: PCP Address: Address: [address] [place] [address] Name: Alejandra Gilbert RN Position: [facility] RN Member Role: Primary Care Nurse Name: Blaire Solis RN Position: [facility] RN Member Role: Primary Care Nurse Name: Stefani Pinto RN Position: [facility] RN Member Role: Primary Care Nurse Name: Araceli Quevedo RN Position: [facility] RN Member Role: Primary Care Nurse Name: Fatoumata Loyd RN Position: [facility] RN Member Role: Primary Care Nurse Name: Melissa Stapleton RN Position: [facility] RN Member Role: Primary Care Nurse Name: Ligia Stapleton RN Position: [facility] RN Member Role: Primary Care Nurse Name: Trinidad Ordonez RN Position: [facility] RN Member Role: Primary Care Nurse Name: Mariaelena Collazo RN Position: [facility] RN Member Role: Primary Care Nurse Name: Shankar Man Position: [facility] RN Member Role: Primary Care Nurse Name: Nikki Croft RN Position: [facility] RN Member Role: Primary Care Nurse Name: Shankar German RN Position: [facility] RN Member Role: Primary Care Nurse Name: John Cuellar RN Position: [facility] RN Member Role: Primary Care Nurse Name: Christos Godoy RN Position: [facility] RN Member Role: Primary Care Nurse Name: Angelo MELENDREZ Attending Position: [facility] ED Medicine MD Name: Genesis Stevens RN Position: [facility] ED RN W/OE and Tasks Member Role: Patient Care Provider Care Team Related Persons Name: [employer]I Address: [address] [address] Name: YULIYA MORA Address: home [address] [place] [address] Name: SUNDAY MORA Address: [place] [address]
--- OUTSIDE RECORDS SUMMARY | 2023-06-07 19:10 | XMS_ITS | Continuity of Care Document ---
Author Organization [facility] Address [address] [place] [address]- Care Team Providers Care Firestopper Technician Name Role Phone Katie RILEY, Narda Marian Primary Care Physici an Encounter [facility] [place] Date(s): 02/23/22 - 02/23/[address] [address]- Discharge Disposition: A-D/C Home Attending Physician: Irwin [...] 0 Refills, Maintenance, 01/24/22 9:26:00 EST, Cream, [facility]-, Partial fill upon patient request if the prescription is for a schedule II opioid drug., Topically 2... Start Date: 01/24/22 Status: Ordered ARIPiprazole 10 mg oral tablet 20 mg, 2, tablet, By Mouth, Daily, # 60 tablet, Refills 0, Tot. Refills 0, Maintenance, 01/24/22 9:25:00 EST, Route to Pharmacy Electronically, [facility], Partial fill upon patient request if the prescription is for a schedul... Start Date: 01/24/22 Status: Ordered benztropine 1 mg oral tablet 1 mg, 1, tablet, By Mouth, Every 6 hours, PRN, PRN for extrapyramidal symptoms, # 60 tablet, Refills 0, Tot. Refills 0, Maintenance, Other, 01/24/22 9:26:00 EST, Route to Pharmacy Electronically, [facility], Partial fill upon... Start Date: 01/24/22 Status: Ordered diphenhydrAMINE 25 mg oral tablet 2 tablet = 50 mg, By Mouth, 3 times a day, PRN Agitation, to be given with haldol only, # 60 tablet, 0 Refills, Maintenance, 01/24/22 9:26:00 EST, Tablet, [facility], Partialfill upon patient request if the prescription is fo... Start Date: 01/24/22 Status: Ordered gabapentin 300 mg oral capsule 600 mg, 2, capsule, By Mouth, 3 times a day, # 180 capsule, Refills 0, Tot. Refills 0, Maintenance,01/24/22 9:26:00 EST, Route to Pharmacy Electronically, [facility], Partial fill upon patient request if the prescription is f... Start Date: 01/24/22 Status: Ordered haloperidol 5 mg oral tablet 5 mg, 1, tablet, By Mouth, Every 4 hours, PRN, to be given with diphenhydramine, # 60 tablet, Refills 0, Tot. Refills 0, Maintenance, Agitation, 01/24/22 9:26:00 EST, Route to Pharmacy Electronically, [facility], Partial fill... Start Date: 01/24/22 Status: Ordered hydrOXYzine pamoate 25 mg oral capsule 2 capsule = 50 mg, By Mouth, 4 times a day, PRN Anxiety, # 90 capsule, 0 Refills, Maintenance, 01/24/22 9:26:00 EST, Capsule, [facility]-, Partial fill upon patient request ifthe prescription is for a schedule II opioid drug.,... Start Date: 01/24/22 Status: Ordered lidocaine 5% topical ointment See Instructions, Topically 3 times a day to affected areas for pain, # 3 Gm, 0 Refills, Acute 02/24/22 8:00:00 EST, 02/23/22 8:00:00 EST, Ointment, [facility]-, Partial fill upon patient request if the prescription is for a sc... Start Date: 02/23/22 Stop Date: 02/24/22 Status: Ordered lithium 600 mg oral capsule = 600 mg, By Mouth, 2 times a day, # 60 capsule, 0 Refills, Maintenance, 01/24/22 9:27:00 EST, Capsule, [facility], Partial fill upon patient request if the prescription is for a schedule II opioid drug., 168, cm, 01/24/22 7:2... Start Date: 01/24/22 Status: Ordered methylphenidate 54 mg oral tablet, extended release 1 tablet = 54 mg, By Mouth, Daily, # 30 tablet, 0 Refills, Maintenance, 01/24/22 9:27:00 EST, ER Tablet, [facility], Partial fill upon patient request if the prescription is for a schedule II opioid drug., 168, cm, 01/24/22 7:... Start Date: 01/24/22 Status: Ordered ondansetron 4 mg oral tablet, disintegrating = 4 mg, By Mouth, Every 6 hours, PRN Nausea & Vomiting, # 30 capsule, 0 Refills, Maintenance, 01/24/22 9:27:00 EST, Tablet, [facility], Partial fill upon patient request if the prescription is for a schedule II opioid drug., 1... Start Date: 01/24/22 Status: Ordered prazosin 2 mg oral capsule 1 capsule = 2 mg, By Mouth, Daily at bedtime, # 30 capsule, 0 Refills, Maintenance, 01/24/22 9:27:00 EST, Capsule, [facility], Partial fill upon patient request if the prescription is for a schedule II opioid drug., 168, cm, 1... Start Date: 01/24/22 Status: Ordered PROzac 20 mg oral capsule 40 mg, 2, capsule, By Mouth, Daily, # 60 capsule, Refills 0, Tot. Refills 0, Maintenance, 01/24/22 9:26:00 EST, Route to Pharmacy Electronically, [facility], Partial fill upon patient request if [...] [Reference Range]: 1 2 Height 167 cm (02/23/22 3:32 PM) 167 cm (02/23/22 3:31 PM) Weight 136 kg (02/23/22 3:32 PM) 136 kg (02/23/22 3:31 PM) Oxygen Saturation [94-100 %] 100 % (02/23/22 3:31 PM) Pulse Rate [55-90 bpm] 102 bpm *H* (02/23/22 3:31 PM) Body Mass Index [18.5-24.99 kg/m2] 48.76 kg/m2 *>HHI* (02/23/22 3:31 PM) Blood Pressure [90-138/55-84 mm Hg] 123/ 105mm Hg (02/23/22 3:31 PM) Respiratory Rate [16-30 br/min] 18 br/mi n (02/23/22 3:31 PM) Temperature [96.8-100.4 DegF] 97.2 DegF (02/23/22 3:31 PM) Mode of Delivery (Oxygen) Room air (02/23/22 3:31 PM) Blood pressure sites Arm, right (02/23/22 3:31 PM) Temperature Route Oral (02/23/22 3:31 PM) Dry Weight 136 kg (02/23/22 3:32 PM) Weight Obtained Via Patient/family state d (1/12/23 3:32 PM) Social History Social History Type Response Smoking Status 10 or more cigarette s (1/2 pack or more)/day in last 30 days entered on: 12/11/20 Sex Note * Kwan ESTES, Irwin Wilson: PERFORM Event Display: Patient Education Leaflets Authored Date: [id number] Paraesthesias ?? [id number] Paraesthesias Paraesthesia is a burning or prickling feeling that's sometimes felt in the hands, arms, legs or feet. It can also occur in other parts of the body. It can also feel like tingling or numbness, skin crawling, or itching. The feeling is not comfortable, but it's not painful. (The pins and needles feeling that happens when a foot or hand falls asleep is a temporary paraesthesia.) Paraesthesias that last or come and go may be caused by medical issues that need to be treated. These include stroke, a bulging disk pressing on a nerve, a trapped nerve, vitamin deficiencies, uncontrolled diabetes, alcohol abuse, or even certain medicines. Tests are often done. These tests may include blood tests, X-ray, CT scan, nerve conduction studies(NCS), or a muscle test (electromyography). Depending on the cause, treatment may include physical therapy. Home care ??? Tell your healthcare provider about all medicines you take. This includes prescription and yxgj-tfc-eihmvom medicines, vitamins, and herbs. Ask if any of the medicines may be causing your problems. Don't make any changes to prescription medicines without talking to your healthcare provider first. ??? You may be prescribed medicines to help relieve the tingling feeling or for pain. Take all medicines as directed. ??? A numb hand or foot may be more prone to injury. To help protect it: o Always use oven mitts. o Test water with an unaffected hand or foot. o Use caution when trimming nails. File sharp areas. o Wear shoes that fit well to avoid pressure points, blisters, and ulcers. o Inspect your hands and feet carefully (including the soles of your feet and between your toes) daily. If you see red areas, sores, or other problems, tell your healthcare provider. ?? Follow-up care Follow up with your healthcare provider, or as advised. You may need more testing or evaluation. ?? When to get medical advice Call your healthcare provider right away if any of these occur: ??? Numbness or weakness of the face, one arm, or 1 leg ??? Slurred speech, confusion, trouble speaking, walking, or seeing ??? Severe headache, fainting spell, dizziness, or seizure ??? Chest, arm, neck, or upper back pain ??? Loss ofbladder or bowel control ??? Open wound with redness, swelling, or pus ?? Last Reviewed Date: 2021 ?? 2324-2324 [employer]. All rights reserved. This information is not intended as a substitute for professional medical care. Always follow your healthcare professional's instructions. ?? Patient Care team information Care Team Personnel Name: Natasha Dickey RN Position: [facility] RN Member Role: Primary Care Nurse Name: Lauryn Nolasco Position: S RN Member Role: Primary Care Nurse Name: Blaire Solis RN Position: [facility] RN Member Role: Primary Care Nurse Name: Stefani Pinto RN Position: [facility] RN Member Role: Primary Care Nurse Name: Melissa Stapleton RN Position: S RN Member Role: Primary Care Nurse Name: Ligia Stapleton RN Position: [facility] RN Member Role: Primary Care Nurse Name: Martin Martinez RN Position: [facility] RN Member Role: Primary Care Nurse Name: Narda Wilson NP Position: Reference Physician Member Role: PCP Address: Address: [address] [place] [address]- Name: Mariaelena Collazo RN Position: [facility] RN Member Role: Primary Care Nurse Name: Nikki Croft RN Position: [facility] RN Suptony Member Role: Primary Care Nurse Name: Giana Huntley RN Position: [facility] RN Member Role: Primary Care Nurse Name: John Cuellar RN Position: [facility] RN Member Role: Primary Care Nurse Name: Holly Bowman RN Position: [facility] RN Member Role: Primary Care Nurse Name: Aline Izaguirre RN Position: S RN Member Role: Primary Care Nurse Name: Irwin Bowens MD Position: [facility] ED Medicine MD Member Role: Admitting Physician Address: Address: [address] [place] [id number]- Name: Faye Rey RN Position: [facility] ED RN W/OE and Tasks Member Role: Patient Care Provider Care Team Related Persons Name: CORRECTION FLEET DRIVERYENI Address: home [address] [place] [address] Name: YULIYA MORA Address: home [address] [place] [address] Name: SUNDAY MORA Address: [place] [address]
--- OUTSIDE RECORDS SUMMARY | 2023-06-07 19:10 | XMS_ITS | Continuity of Care Document ---
Author Organization [facility] Address [address] [place] [id number]- Care Team Providers Care Research Program Manager Name Role Phone Katie RILEY, Narda Marian Primary Care Physici an Encounter [facility] [place] Date(s): 02/25/22 - 02/26/[address] [address]- Discharge Disposition: A-D/C Home Attending Physician: Carter [...] 0 Refills, Maintenance, 01/24/22 9:26:00 EST, [facility] Partial fill upon patient request if the prescription is for a schedule II opioid drug., Topically 2... Start Date: 01/24/22 Status: Ordered ARIPiprazole 10 mg oral tablet 20 mg, 2, tablet, By Mouth, Daily, # 60 tablet, Refills 0, Tot. Refills 0, Maintenance, 01/24/22 9:25:00 EST, Route to Pharmacy Electronically, [facility], Partial fill upon patient request if the prescription is for a schedul... Start Date: 01/24/22 Status: Ordered benztropine 1 mg oral tablet 1 mg, 1, tablet, By Mouth, Every 6 hours, PRN, PRN for extrapyramidal symptoms, # 60 tablet, Refills 0, Tot. Refills 0, Maintenance, Other, 01/24/22 9:26:00 EST, Route to Pharmacy Electronically, [facility], Partial fill upon... Start Date: 01/24/22 Status: Ordered diphenhydrAMINE 25 mg oral tablet 2 tablet = 50 mg, By Mouth, 3 times a day, PRN Agitation, to be given with haldol only, # 60 tablet, 0 Refills, Maintenance, 01/24/22 9:26:00 EST, Tablet, [facility], Partialfill upon patient request if the prescription is fo... Start Date: 01/24/22 Status: Ordered gabapentin 300 mg oral capsule 600 mg, Capsule, By Mouth, 02/26/22 9:00:00 EST Start Date: 02/26/22 Stop Date: 02/26/22 Status: Completed gabapentin 300 mg oral capsule 600 mg, 2, capsule, By Mouth, 3 times a day, # 180 capsule, Refills 0, Tot. Refills 0, Maintenance,01/24/22 9:26:00 EST, Route to Pharmacy Electronically, [facility], Partial fill upon patient request if the prescription is f... Start Date: 01/24/22 Status: Ordered haloperidol 5 mg oral tablet 5 mg, 1, tablet, By Mouth, Every 4 hours, PRN, to be given with diphenhydramine, # 60 tablet, Refills 0, Tot. Refills 0, Maintenance, Agitation, 01/24/22 9:26:00 EST, Route to Pharmacy Electronically, [facility], Partial fill... Start Date: 01/24/22 Status: Ordered hydrOXYzine pamoate 25 mg oral capsule 2 capsule = 50 mg, By Mouth, 4 times a day, PRN Anxiety, # 90 capsule, 0 Refills, Maintenance, 01/24/22 9:26:00 EST, Capsule, [facility], Partial fill upon patient request ifthe prescription is for a schedule II opioid drug.,... Start Date: 01/24/22 Status: Ordered lithium 600 mg oral capsule = 600 mg, By Mouth, 2 times a day, # 60 capsule, 0 Refills, Maintenance, 01/24/22 9:27:00 EST, Capsule, [facility], Partial fill upon patient request if the prescription is for a schedule II opioid drug., 168, cm, 01/24/22 7:2... Start Date: 01/24/22 Status: Ordered methylphenidate 54 mg oral tablet, extended release 1 tablet = 54 mg, By Mouth, Daily, # 30 tablet, 0 Refills, Maintenance, 01/24/22 9:27:00 EST, ER Tablet, [facility], Partial fill upon patient request if the prescription is for a schedule II opioid drug., 168, cm, 01/24/22 7:... Start Date: 01/24/22 Status: Ordered ondansetron 4 mg oral tablet, disintegrating = 4 mg, By Mouth, Every 6 hours, PRN Nausea & Vomiting, # 30 capsule, 0 Refills, Maintenance, 01/24/22 9:27:00 EST, Tablet, [facility], Partial fill upon patient request if the prescription is for a schedule II opioid drug., 1... Start Date: 01/24/22 Status: Ordered prazosin 2 mg oral capsule 1 capsule = 2 mg, By Mouth, Daily at bedtime, # 30 capsule, 0 Refills, Maintenance, 01/24/22 9:27:00 EST, Capsule, [facility], Partial fill upon patient request if the prescription is for a schedule II opioid drug., 168, cm, 1... Start Date: 01/24/22 Status: Ordered PROzac 20 mg oral capsule 40 mg, 2, capsule, By Mouth, Daily, # 60 capsule, Refills 0, Tot. Refills 0, Maintenance, 01/24/22 9:26:00 EST, [facility], [facility] [...] Range]: 1 2 3 Height 167 cm (02/26/22 8:23 AM) 167 cm (02/25/22 4:53 PM) Weight 136 kg (02/26/22 8:23 AM) 136 kg (02/25/22 4:53 PM) Oxygen Saturation [94-100 %] 100 % (02/26/22 10:58 AM) 97 % (02/26/22 8:42 AM) 98 % (02/26/22 8:23 AM) Pulse Rate [55-90 bpm] 90 bpm (02/26/22 10:58 AM) 73 bpm (02/26/22 8:42 AM) 76 bpm (02/26/22 8:23 AM) Body Mass Index [18.5-24.99 kg/m2] 48.76 kg/m2 *>HHI* (02/26/22 8:23 AM) Blood Pressure [90-138/55-84 mm Hg] 105/71mm Hg (02/26/22 10:58 AM) 87/66mm Hg *L* (02/26/22 8:42 AM) 88/46mm Hg *L* (02/26/22 8:23 AM) Respiratory Rate [16-30 br/min] 17 br/min (02/26/22 10:58 AM) 17 br/min (02/26/22 9:13 AM) 18 br/min (02/26/22 8:42 AM) Temperature [96.8-100.4 DegF] 98.5 DegF (02/26/22 8:23 AM) 98.9 DegF (02/25/22 9:05 PM) 98.4 DegF (02/25/22 4:53 PM) Mode of Delivery (Oxygen) Room air (02/26/22 10:58 AM) Room air (02/26/22 8:42 AM) Room air (02/26/22 8:23 AM) Blood pressure sites Arm, left (02/26/22 10:58 AM) Arm, right (02/26/22 8:42 AM) Arm, left (02/26/22 8:23 AM) Temperature Route Oral (02/26/22 8:23 AM) Temporal (02/25/22 9:05 PM) Temporal (02/25/22 4:53 PM) Dry Weight 136 kg (02/26/22 8:23 AM) 136 kg (02/25/22 4:53 PM) Social History Social History Type Response Smoking Status 10 or more cigarette s (1/2 pack or more)/day in last 30 days entered on: 12/11/20 Sex Note * Carter Shen MD: PERFORM, SIGN, VERIFY Event Display: Patient Education Handout Authored Date: [id number] * Carter Shen MD: PERFORM Event Display: Patient Education Leaflets Authored Date: [id number] Depression ?? [id number] Depression Depression is a very common mental [...] medicines you take. This includes prescription and mduv-asr-ecfiikm medicines. It includes vitamins and herbal supplements. [...] An online chat option is also available. [employer] is free and available 04/09. 988 counselors [...] help ?? Last Reviewed Date: 2021 ?? [id number] [employer]. All rights reserved. This information is not intended as a substitute for professional medical care. Always follow your healthcare professional's instructions. ?? Patient Care team information Care Team Personnel Name: Natasha Dickey RN Position: [facility] RN Member Role: Primary Care [...] Care Nurse Name: Martin Martinez RN Position: [facility] RN Member Role: Primary Care Nurse Name: Narda Wilson NP Position: Reference Physician Member Role: PCP Address: Address: [address] [place] [address]- Name: Mariaelena Collazo RN Position: [facility] RN Member Role: Primary Care Nurse Name: Nikki Croft RN Position: [facility] RN Supv Member Role: Primary Care Nurse Name: Giana Huntley RN Position: [facility] RN Member Role: Primary Care Nurse Name: John Cuellar RN Position: [facility] RN Member Role: Primary Care Nurse Name: Holly Bowman RN Position: [facility] RN Member Role: Primary Care Nurse Name: Aline Izaguirre RN Position: [facility] RN Member Role: Primary Care Nurse Name: Carter Shen MD Position: [facility] ED Medicine MD Member Role: Admitting Physician Address: Address: [address] [place] [address]- Name: Katerina Godinez RN Position: [facility] ED RN W/OE and Tasks Member Role: Patient Care Provider Care Team Related Persons Name: [facility] Address: home [address] [place] [address] Name: YULIYA MORA Address: home [address] [place] [address] Name: SUNDAY MORA Address: [place] [address]
--- OUTSIDE RECORDS SUMMARY | 2023-06-07 19:10 | XMS_ITS | Continuity of Care Document ---
Author Organization [facility] Address [address] [place] [address]- Care Team Providers Care Energy Conservation Engineer Name Role Phone Katie RILEY, Narda Marian Primary Care Physici an Encounter [facility] [place] Date(s): 05/04/21 - 05/05/[address] [address]- Discharge Disposition: A-D/C Home Attending Physician: Martin [...] 05/26/21 11:03:00 EDT, 04/26/21 11:03:00 EDT, Tablet, [facility] [id number], Par... Start Date: 04/26/21 Stop Date: 05/26/21 Status: Ordered lithium 300 mg oral tablet, extended release 2 tablet = 600 mg, By Mouth, 2 times a day, # 120 tablet, 1 Refills, Maintenance, 11/15/20 15:50:00EDT, ER Tablet, [facility], [place]- [id number], Partial fill upon patient request if the prescription is for a schedule II opioid drug., 168, cm, 1... Start Date: 11/15/20 Status: Ordered prazosin 2 mg oral capsule 1 capsule = 2 mg, By Mouth, Daily at bedtime, takes with 5 mg prazosin, # 30 capsule, 1 Refills, Maintenance, 11/15/20 15:50:00 EDT, Capsule, [facility] [place]-[id number], Partial fill upon patient request if the prescription is for a schedule I... Start Date: 11/15/20 Stop Date: 01/14/21 Status: Ordered prazosin 5 mg oral capsule 5 mg, 1, capsule, By Mouth, Daily at bedtime, # 30 capsule, Refills 1, Tot. Refills 1, Maintenance,11/15/20 15:50:00 EDT, Route to Pharmacy Electronically, [id number], Partial fill upon patient request if the prescription is f... Start Date: 11/15/20 Stop Date: 01/14/21 Status: Ordered PROzac 40 mg oral capsule 1 capsule = 40 mg, By Mouth, Daily, # 30 capsule, 1 Refills, Maintenance, 11/15/20 15:50:00 EDT, Capsule, [facility], [place]-[id number], Partial fill upon patient request if the [...] 0 Refills, Maintenance, 04/26/21 11:02:00 EDT, Tablet, [facility], [place], [id number], Partial fill upon patient request if the prescription is fora schedule II opioid drug., 170, cm, 04/26/21 8:31:... Start Date: 04/26/21 Status: Ordered traZODone 150 mg oral tablet 1 tablet = 150 mg, By Mouth, Daily at bedtime, # 30 tablet, 0 Refills, Maintenance, 11/15/20 15:50:00 EDT, Tablet, [facility], [place], [facility]-[id number], Partial fill upon patient request if the prescription is for a schedule II opioid drug., 168, cm, 10... Start Date: 11/15/20 Status: Ordered Problem List Condition Effective Dates Status Health Status Inform ant Depression(Confirmed) Active Severe obesity(Confirmed) Active Tobacco dependence(Confirmed) Active Vital Signs Most recent to oldest [Reference Range]: 1 2 Height 168 cm (05/05/21 7:03 AM) 168 cm (05/04/21 9:02 PM) Weight 140 kg (05/05/21 7:03 AM) 140 kg (05/04/21 9:02 PM) Oxygen Saturation [94-100 %] 96 % (05/05/21 7:03 AM) 98 % (05/04/21 9:02 PM) Pulse Rate [55-90 bpm] 75 bpm (05/05/21 7:03 AM) 79 bpm (05/04/21 9:02 PM) Body Mass Index [18.5-24.99] 49.6 *>HHI* (05/05/21 7:03 AM) Blood Pressure [90-138/55-84 mm Hg] 111/ 67mm Hg (05/05/21 7:03 AM) 133/91mm Hg (05/04/21 9:02 PM) Respiratory Rate [16-30 br/min] 18 br/mi n (05/05/21 7:03 AM) 18 br/min (05/04/21 9:02 PM) Temperature [96.8-100.4 DegF] 97.6 DegF (05/05/21 7:03 AM) 99.3 DegF (05/04/21 9:02 PM) Mode of Delivery (Oxygen) Room air (05/05/21 7:03 AM) Room air (05/04/21 9:02 PM) Blood pressure sites Arm, right (05/05/21 7:03 AM) Temperature Route Oral (05/05/21 7:03 AM) Oral (05/04/21 9:02 PM) Dry Weight 140 kg (05/05/21 7:03 AM) 140 kg (05/04/21 9:02 PM) Social History Social History Type Response Smoking Status 10 or more cigarette s (1/2 pack or more)/day in last 30 days entered on: 12/11/20 Sex
--- OUTSIDE RECORDS SUMMARY | 2023-06-07 19:10 | XMS_ITS | Continuity of Care Document ---
Author Organization [facility] Address [address] [place] [address]- Care Team Providers Care On Air Host Name Role Phone Katie RILEY, Narda Fonseca Primary Care Physici an Encounter [facility] [place] Date(s): 04/10/21 - 04/10/[address] [address]- Discharge Disposition: A-D/C Home Attending Physician: Torrey [...] 1 Refills, Maintenance, 11/15/20 15:51:00 EDT, Tablet, [facility]-[id number], Partial fill upon patient request if the prescription is for a schedule II opioid drug., 168, cm,... Start Date: 11/15/20 Status: Ordered chlorproMAZINE 50 mg oral tablet = 50 mg, By Mouth, 3 times a day, # 90 tablet, 1 Refills, Maintenance, 11/15/20 15:50:00 EDT, Tablet, [facility][id number], Partial fill upon patient request if the prescription is for a schedule II opioid drug., 168, cm, 11/15/20 9:15:0... Start Date: 11/15/20 Status: Ordered Detrol LA 4 mg oral capsule, extended release 1 capsule = 4 mg, By Mouth, Daily, # 30 capsule, 3 Refills, Maintenance, 12/07/20 11:25:00 EDT, CR Capsule, [facility]-[id number], Partial fill upon patient request if the prescription is for a schedule II opioid drug., 167, cm, 12/07/20... Start Date: 12/07/20 Status: Ordered hydrOXYzine pamoate 50 mg oral capsule = 50 mg, By Mouth, Every 4 hours, PRN Anxiety, # 90 capsule, 1 Refills, Maintenance, 11/15/20 15:51:00 EDT, Capsule, [facility]-[id number], Partial fill upon patient request if the [...] 1 Refills, Maintenance, 11/15/20 15:50:00EDT, ER Tablet, [facility]- [id number], Partial fill upon patient request if the prescription is for a schedule II opioid drug., 168, cm, 1... Start Date: 11/15/20 Status: Ordered prazosin 2 mg oral capsule 1 capsule = 2 mg, By Mouth, Daily at bedtime, takes with 5 mg prazosin, # 30 capsule, 1 Refills, Maintenance, 11/15/20 15:50:00 EDT, Capsule, [facility]-[id number], Partial fill upon patient request if the prescription is for a schedule I... Start Date: 11/15/20 Stop Date: 01/14/21 Status: Ordered prazosin 5 mg oral capsule 5 mg, 1, capsule, By Mouth, Daily at bedtime, # 30 capsule, Refills 1, Tot. Refills 1, Maintenance,11/15/20 15:50:00 EDT, Route to Pharmacy Electronically, [facility]-[id number], Partial fill upon patient request if the prescription is f... Start Date: 11/15/20 Stop Date: 01/14/21 Status: Ordered PROzac 40 mg oral capsule 1 capsule = 40 mg, By Mouth, Daily, # 30 capsule, 1 Refills, Maintenance, 11/15/20 15:50:00 EDT, Capsule, [facility]-[id number], Partial fill upon patient request if the prescription is for a schedule II opioid drug., 168, cm, 11/15/20 9:... Start Date: 11/15/20 Status: Ordered traZODone 150 mg oral tablet 1 tablet = 150 mg, By Mouth, Daily at bedtime, # 30 tablet, 0 Refills, Maintenance, 11/15/20 15:50:00 EDT, Tablet, [facility]-[id number], Partial fill upon patient request if the prescription is for a schedule II opioid drug., 168, cm, 10... Start Date: 11/15/20 Status: Ordered Problem List Condition Effective Dates Status Health Status Inform ant Depression(Confirmed) Active Severe obesity(Confirmed) Active Tobacco dependence(Confirmed) Active Vital Signs Most recent to oldest [Reference Range]: 1 2 3 Height 167 cm (04/10/21 8:59 PM) 167 cm (04/10/21 5:21 PM) 167 cm (04/10/21 5:20 PM) Weight 145 kg (04/10/21 8:59 PM) 145 kg (04/10/21 5:21 PM) 145 kg (04/10/21 5:20 PM) Oxygen Saturation [94-100 %] 99 % (04/10/21 8:59 PM) 99 % (04/10/21 5:20 PM) Pulse Rate [55-90 bpm] 83 bpm (04/10/21 8:59 PM) 105 bpm *H* (04/10/21 5:20 PM) Body Mass Index [18.5-24.99] 51.99 *>HHI* (04/10/21 8:59 PM) 51.99 *>HHI* (04/10/21 5:20 PM) Blood Pressure [90-138/55-84 mm Hg] 123/70mm Hg (04/10/21 8:59 PM) 137/93mm Hg (04/10/21 5:20 PM) Respiratory Rate [16-30 br/min] 20 br/min (04/10/21 5:20 PM) Temperature [96.8-100.4 DegF] 97.9 DegF (04/10/21 5:20 PM) Mode of Delivery (Oxygen) Room air (04/10/21 8:59 PM) Room air (04/10/21 5:20 PM) Blood pressure sites Arm, right (04/10/21 8:59 PM) Arm, right (04/10/21 5:20 PM) Temperature Route Temporal (04/10/21 5:20 PM) Dry Weight 145 kg (04/10/21 8:59 PM) 145 kg (04/10/21 5:21 PM) 145 kg (04/10/21 5:20 PM) Social History Social History Type Response Smoking Status 10 or more cigarette s (1/2 pack or more)/day in last 30 days entered on: 12/11/20 Sex
--- OUTSIDE RECORDS SUMMARY | 2023-06-07 19:10 | XMS_ITS | Continuity of Care Document ---
Author Organization [facility] Address [address] [place] [id number]- Care Team Providers Care Band Booker Name Role Phone Katie RILEY, Narda Fonseca Primary Care Blanco marino Encounter [facility] [place] Date(s): 10/13/21 - 10/14/[address] [address]- Encounter Diagnosis Back strain(Final) - 10/14/21 Discharge Disposition: A-D/C Home Attending Physician: Nimco Humphrey DO Admitting Physician: Nimco Humphrey DO Referring Physician: Not on Staff, Referring [...] 0 Refills, Maintenance, 09/15/21 12:18:00 EDT, Tablet, [facility]-[id number], Partial fill upon patient request if the [...] opioid drug. Start Date: 09/29/21 Status: Ordered HydrOXYzine HCL Tablet By Mouth, Every 4 [...] 0 Refills, Maintenance, 09/15/21 12:17:00 EDT, Capsule, [facility]-[id number], Partial fill upon patient request if the [...] 0 Refills, Maintenance, 09/15/21 12:18:00 EDT, Tablet, [facility]-[id number], Partial fill upon patient request if the [...] 09/15/21 12:16:00 EDT, Route to Pharmacy Electronically, [facility]-[id number], Partial fill upon patient request if the [...] [Reference Range]: 1 2 Height 168 cm (10/14/21 1:11 AM) 168 cm (10/13/21 9:58 PM) Weight 140 kg (10/14/21 1:11 AM) 140 kg (10/13/21 9:58 PM) Oxygen Saturation [94-100 %] 98 % (10/14/21 1:11 AM) 95 % (10/13/21 9:58 PM) Pulse Rate [55-90 bpm] 69 bpm (10/14/21 1:11 AM) 87 bpm (10/13/21 9:58 PM) Blood Pressure [90-138/55-84 mm Hg] 110/ 55mm Hg (10/14/21 1:11 AM) 115/65mm Hg (10/13/21 9:58 PM) Respiratory Rate [16-30 br/min] 17 br/mi n (10/14/21 1:11 AM) 18 br/min (10/13/21 9:58 PM) Temperature [96.8-100.4 DegF] 98 DegF (10/13/21 9:58 PM) Mode of Delivery (Oxygen) Room air (10/14/21 1:11 AM) Room air (10/13/21 9:58 PM) Blood pressure sites Arm, right (10/14/21 1:11 AM) Arm, right (10/13/21 9:58 PM) Temperature Route Temporal (10/13/21 9:58 PM) Dry Weight 140 kg (10/14/21 1:11 AM) 140 kg (10/13/21 9:58 PM) Social History Social History Type Response Smoking Status 10 or more cigarette s (1/2 pack or more)/day in last 30 days entered on: 12/11/20 Sex Care Team Personnel Name: Katie RILEY, Narda Fonseca Address: [address] [place] [address]
--- OUTSIDE RECORDS SUMMARY | 2023-06-07 19:10 | XMS_ITS | Continuity of Care Document ---
Author Organization [facility] Address [address] [place] [address]- Care Team Providers Care At Risk Specialist Name Role Phone Katie RILEY, Narda Fonseca Primary Care Physici an Encounter [facility] [place] Date(s): 12/18/20 - 12/18/[address] [address]- Discharge Disposition: A-D/C Home Attending Physician: Torrey Morfin MD Admitting Physician: Torrey Morifn MD Referring Physician: Not on Staff, Referring [...] 1 Refills, Maintenance, 11/15/20 15:51:00 EDT, Tablet, [facility]-[id number], Partial fill upon patient request if the prescription is for a schedule II opioid drug., 168, cm,... Start Date: 11/15/20 Status: Ordered chlorproMAZINE 50 mg oral tablet = 50 mg, By Mouth, 3 times a day, # 90 tablet, 1 Refills, Maintenance, 11/15/20 15:50:00 EDT, Tablet, [facility]-[id number], Partial fill upon patient request if the prescription is for a schedule II opioid drug., 168, cm, 11/15/20 9:15:0... Start Date: 11/15/20 Status: Ordered Detrol LA 4 mg oral capsule, extended release 1 capsule = 4 mg, By Mouth, Daily, # 30 capsule, 3 Refills, Maintenance, 12/07/20 11:25:00 EDT, CR Capsule, [facility]-[id number], Partial fill upon patient request if the prescription is for a schedule II opioid drug., 167, cm, 12/07/20... Start Date: 12/07/20 Status: Ordered hydrOXYzine pamoate 50 mg oral capsule = 50 mg, By Mouth, Every 4 hours, PRN Anxiety, # 90 capsule, 1 Refills, Maintenance, 11/15/20 15:51:00 EDT, Capsule, [facility]-[id number], Partial fill upon patient request if the prescription is for a schedule II opioid drug., 168, cm,... Start Date: 11/15/20 Status: Ordered lithium 300 mg oral tablet, extended release 2 tablet = 600 mg, By Mouth, 2 times a day, # 120 tablet, 1 Refills, Maintenance, 11/15/20 15:50:00EDT, ER Tablet, [facility]- 08653, Partial fill upon patient request if the prescription is for a schedule II opioid drug., 168, cm, 1... Start Date: 11/15/20 Status: Ordered prazosin 2 mg oral capsule 1 capsule = 2 mg, By Mouth, Daily at bedtime, takes with 5 mg prazosin, # 30 capsule, 1 Refills, Maintenance, 11/15/20 15:50:00 EDT, Capsule, [facility]-07542, Partial fill upon patient request if the prescription is for a schedule I... Start Date: 11/15/20 Stop Date: 01/14/21 Status: Ordered prazosin 5 mg oral capsule 5 mg, 1, capsule, By Mouth, Daily at bedtime, # 30 capsule, Refills 1, Tot. Refills 1, Maintenance,11/15/20 15:50:00 EDT, Route to Pharmacy Electronically, [facility]-[id number], Partial fill upon patient request if the prescription is f... Start Date: 11/15/20 Stop Date: 01/14/21 Status: Ordered PROzac 40 mg oral capsule 1 capsule = 40 mg, By Mouth, Daily, # 30 capsule, 1 Refills, Maintenance, 11/15/20 15:50:00 EDT, Capsule, [facility]-36082, Partial fill upon patient request if the prescription is for a schedule II opioid drug., 168, cm, 11/15/20 9:... Start Date: 11/15/20 Status: Ordered traZODone 150 mg oral tablet 1 tablet = 150 mg, By Mouth, Daily at bedtime, # 30 tablet, 0 Refills, Maintenance, 11/15/20 15:50:00 EDT, Tablet, [facility]-[id number], Partial fill upon patient request if the prescription is for a schedule II opioid drug., 168, cm, 10... Start Date: 11/15/20 Status: Ordered Problem List Condition Effective Dates Status Health Status Inform ant Depression(Confirmed) Active Tobacco dependence(Confirmed) Active Vital Signs Most recent to oldest [Reference Range]: 1 Height 168 cm (12/18/20 8:09 PM) Weight 143 kg (12/18/20 8:09 PM) Oxygen Saturation [94-100 %] 100 % (12/18/20 8:09 PM) Pulse Rate [55-90 bpm] 108 bpm *H* (12/18/20 8:09 PM) Blood Pressure [90-138/55-84 mm Hg] 132/ 74mm Hg (12/18/20 8:09 PM) Respiratory Rate [16-30 br/min] 18 br/mi n (12/18/20 8:09 PM) Temperature [96.8-100.4 DegF] 97.3 DegF (12/18/20 8:09 PM) Mode of Delivery (Oxygen) Room air (12/18/20 8:09 PM) Blood pressure sites Arm, right (12/18/20 8:09 PM) Temperature Route Tympanic (12/18/20 8:09 PM) Dry Weight 143 kg (12/18/20 8:09 PM) Weight Obtained Via Patient/family state d (12/18/20 8:09 PM) Dry Weight Obtained Via Patient/family s tated (12/18/20 8:09 PM) Social History Social History Type Response Smoking Status 10 or more cigarette s (1/2 pack or more)/day in last 30 days entered on: 12/11/20 Sex
--- OUTSIDE RECORDS SUMMARY | 2023-06-07 19:10 | XMS_ITS | Continuity of Care Document ---
Author Organization [facility] Madhav townsends [facility] Address [address], [address] [place] [address]- Care Team Providers Care Screen And Cyclone Repairer Name Role Phone Katie RILEY, Narda Marian Primary Care Physici an [place] [facility] [place]): 04/07/21 - 05/07/21 [facility] Madhav Songs [facility] [address], [address] [place] [address]- Attending Physician: Admtr, Ar8 Admitting Physician: Admtr, Ar8 Referring Physician: Admtr, Ar8 Allergies, Adverse Reactions, [...] 05/26/21 11:03:00 EDT, 04/26/21 11:03:00 EDT, Tablet, [facility], [place]-[id number], Par... Start Date: 04/26/21 Stop Date: 05/26/21 Status: Ordered lithium 300 mg oral tablet, extended release 2 tablet = 600 mg, By Mouth, 2 times a day, # 120 tablet, 1 Refills, Maintenance, 11/15/20 15:50:00EDT, ER Tablet, [facility], [place]- [address], Partial fill upon patient request if the prescription is for a schedule II opioid drug., 168, cm, 1... Start Date: 11/15/20 Status: Ordered prazosin 2 mg oral capsule 1 capsule = 2 mg, By Mouth, Daily at bedtime, takes with 5 mg prazosin, # 30 capsule, 1 Refills, Maintenance, 11/15/20 15:50:00 EDT, Capsule, [facility], [place]-[id number], Partial fill upon patient request if the prescription is for a schedule I... Start Date: 11/15/20 Stop Date: 01/14/21 Status: Ordered prazosin 5 mg oral capsule 5 mg, 1, capsule, By Mouth, Daily at bedtime, # 30 capsule, Refills 1, Tot. Refills 1, Maintenance,11/15/20 15:50:00 EDT, Route to Pharmacy Electronically, [id number], Partial fill upon patient request if the prescription is f... Start Date: 11/15/20 Stop Date: 01/14/21 Status: Ordered PROzac 40 mg oral capsule 1 capsule = 40 mg, By Mouth, Daily, # 30 capsule, 1 Refills, Maintenance, 11/15/20 15:50:00 EDT, Capsule, [facility], [place]-[id number], Partial fill upon patient request if the [...] 0 Refills, Maintenance, 04/26/21 11:02:00 EDT, Tablet, [facility], [place]-[address], Partial fill upon patient request if the prescription is fora schedule II opioid drug., 170, cm, 04/26/21 8:31:... Start Date: 04/26/21 Status: Ordered traZODone 150 mg oral tablet 1 tablet = 150 mg, By Mouth, Daily at bedtime, # 30 tablet, 0 Refills, Maintenance, 11/15/20 15:50:00 EDT, Tablet, [facility], [place]-[id number], Partial fill upon patient request if the [...]
--- OUTSIDE RECORDS SUMMARY | 2023-06-07 19:10 | XMS_ITS | Continuity of Care Document ---
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 [address] [phone] Clinic Contact : Dr. Janet Moss (psychiatrist) fax (please fax d/c summary) Clinic Comments : Follow up medication management appointment. Brendon Miramontes 03/15/2023 15:27 EST Other Other Service Start : April 09, 2023 at 1:30 pm Brendon Miramontes 03/29/2023 10:59 EST Other Agency Contact : Nikki Hairston NP (PCP) fax (please fax d/c summary) Other Comments : Follow up PCP appointment. Brendon Miramontes 03/15/2023 15:27 EST Other Agency : [facility] ([facility] [address] [place] [id number] Brendon Miramontes - 03/15/2023 15:20 EST Crisis Services Psychiatric Crisis Services : For your area are available 24 hours every day, by calling: Crisis Services : [place] [facility] [phone] Crisis Service Instructions : Please utilize crisis when needed. Brendon Miramontes - 03/15/2023 15:20 EST Patient Care team information Care Team Personnel Name: Garcia Baez RN Position: [facility] RN Member Role: Primary Care Nurse Name: Diamond Mancini RN Position: [facility] RN Member Role: Primary Care Nurse Name: Leah Almonte RN Position: [facility] RN Member Role: Primary Care Nurse Name: Natasha Dickey RN Position: [facility] RN Member Role: Primary Care Nurse Name: Kellee Garvin RN Position: [facility] RN Member Role: Primary Care Nurse Name: Maegan Diaz RN Position: [facility] RN Member Role: Primary Care Nurse Name: Genesis Lea RN Position: [facility] RN Member Role: Primary Care Nurse Name: Nikki Hairston NP Position: [facility] PCO Associate Professional Member Role: PCP Address: Address: [address] [place] [address] Name: Alejandra Gilbert RN Position: [facility] RN Member Role: Primary Care Nurse Name: Zara Colon RN Position: [facility] RN Arleen Member Role: Primary Care Nurse Name: Stefani Pinto RN Position: [facility] RN Member Role: Primary Care Nurse Name: Araceli Quevedo RN Position: [facility] RN Member Role: Primary Care Nurse Name: Fatoumata Loyd RN Position: [facility] RN Member Role: Primary Care Nurse Name: Melissa Stapleton RN Position: S RN Member Role: Primary Care Nurse Name: Ligia Stapleton RN Position: [facility] RN Member Role: Primary Care Nurse Name: Melissa Davison RN Position: [facility] OB RN Member Role: Primary Care Nurse Name: Trinidad Ordonez RN Position: [facility] RN Member Role: Primary Care Nurse Name: Mariaelena Collazo RN Position: [facility] RN Member Role: Primary Care Nurse Name: Beatrice Pisano RN Position: [facility] RN Member Role: Primary Care Nurse Name: Shankar Man Position: [facility] RN Member Role: Primary Care Nurse Name: Nikki Croft RN Position: [facility] RN Member Role: Primary Care Nurse Name: John Cuellar RN Position: [facility] RN Member Role: Primary Care Nurse Name: Christos Godoy RN Position: [facility] RN Member Role: Primary Care Nurse Care Team Related Persons Name: [employer] Address: [address] [address] Name: YULIYA WALTER Address: home [address] [place] [address] Name: SUNDAY WALTER Address: [place] [address]
--- OUTSIDE RECORDS SUMMARY | 2023-06-07 19:10 | XMS_ITS | Continuity of Care Document ---
Author Organization [facility] Address [address] [place] [address]- Care Team Providers Care Mat Weaver Name Role Phone Anny Arnett Primary Care Physician [place] [facility] [place] 10/15/22 - 10/15/[address] [address]- Encounter Diagnosis Borderline personality disorder(Final) - 10/15/22 Discharge Disposition: A-D/C Home Attending Physician: Martin [...] 0 Refills, Maintenance, 10/10/22 10:08:00 EDT, Capsule, [id number], Partial fill upon patient request if the prescription is for a schedule II opioid drug., 168, cm, 10/10/22 9:07... Start Date: 10/10/22 Status: Ordered fluticasone 27.5 mcg/inh nasal spray 2 sprays, Nares, Both, Daily, PRN for allergy symptoms, # 10 Gm, 0 Refills, Maintenance, 10/12/22 4:42:00 EDT, [place], Partial fill upon patient request if the prescription is for a schedule II opioiddrug. Start Date: 10/12/22 Status: Ordered gabapentin 300 mg oral capsule 300 mg, By Mouth, Daily, # 30 capsule, Refills 0, Tot. Refills 0, Maintenance, 10/10/22 10:08:00 EDT, Route to Pharmacy Electronically, [id number], Partial fill upon patient request if the prescription is for a schedule II opio... Start Date: 10/10/22 Status: Ordered gabapentin 300 mg oral capsule 900 mg, Capsule, By Mouth, 10/15/22 9:00:00 EDT Start Date: 10/15/22 Stop Date: 10/15/22 Status: Completed gabapentin 600 mg oral tablet [...] Maintenance, 10/10/22 10:08:00 EDT,Route to Pharmacy Electronically, [facility]-[id number], Partial fill upon patient request if the [...] Refills, Maintenance, 10/10/22 10:10:00 EDT, DIS Tablet, [facility]-[id number], Partial fill upon patient request if the [...] Range]: 1 2 3 Height 168 cm (10/15/22 8:33 AM) 168 cm (10/15/22 1:11 AM) Weight 137.5 kg (10/15/22 8:33 AM) 137.5 kg (10/15/22 1:11 AM) Oxygen Saturation [94-100 %] 98 % (10/15/22 8:33 AM) 97 % (10/15/22 1:11 AM) Pulse Rate [55-90 bpm] 97 bpm *H* (10/15/22 8:33 AM) 108 bpm *H* (10/15/22 1:11 AM) Body Mass Index [18.5-24.99 kg/m2] 48.72 kg/m2 *>HHI* (10/15/22 8:33 AM) Blood Pressure [90-138/55-84 mm Hg] 106/54mm Hg (10/15/22 8:33 AM) 116/75mm Hg (10/15/22 1:11 AM) Respiratory Rate [16-30 br/min] 16 br/min (10/15/22 8:34 AM) 18 br/min (10/15/22 8:33 AM) 18 br/min (10/15/22 1:11 AM) Temperature [96.8-100.4 DegF] 97.8 DegF (10/15/22 8:33 AM) 97.2 DegF (10/15/22 1:11 AM) Mode of Delivery (Oxygen) Room air (10/15/22 8:33 AM) Room air (10/15/22 1:11 AM) Blood pressure sites Arm, right (10/15/22 8:33 AM) Temperature Route Temporal (10/15/22 8:33 AM) Oral (10/15/22 1:11 AM) Dry Weight 137.5 kg (10/15/22 8:33 AM) 137.5 kg (10/15/22 1:11 AM) Social History Social History Type Response Smoking Status 10 or more cigarette s (1/2 pack or more)/day in last 30 days entered on: 09/07/18 Sex Patient Care team information Care Team Personnel Name: Natasha Dickey RN Position: [facility] RN Member Role: Primary Care Nurse Name: Anny Arnett Position: [facility] Associate Professional Member Role: PCP Address: Address: [address] [place] [address] Pediatric Emergency Medicine [address] Name: Genesis Lea RN Position: [facility] RN Member Role: Primary Care [...] Care Nurse Name: Christos Godoy RN Position: [facility] RN Member Role: Primary Care Nurse Name: Martin Villatoro MD Position: [facility] ED Medicine MD Member Role: Admitting Physician Address: Address: [address] [place] [address]- Name: Efrem Santiago RN Position: [facility] ED RN W/OE and Tasks Member Role: Patient Care Provider Care Team Related Persons Name: [employer] Address: home [address] [place] [id number] Name: YULIYA MORA Address: home [address] [place] [address] Name: SUNDAY MORA Address: [place] [address]
--- OUTSIDE RECORDS SUMMARY | 2023-06-07 19:10 | XMS_ITS | Continuity of Care Document ---
Author Organization [facility] Inpatient Psych[facility] Address [address] [place] [address]- Care Team Providers Care Licensed Customs Broker Name Role Phone Yovanny RILEY, Nikki Primary Care Physician [phone] Encounter [facility] Date(s): 02/10/23 - 03/07/23 [facility] Inpatient Psychiatry [address] [place] [id number]- Discharge Disposition: A-D/C Home Attending Physician: Annmarie [...] mRNA [id number] vac 03/02/20 Recorded Medications duloxetine 60 mg oral enteric coated capsule = 60 mg, By Mouth, Daily, # 30 capsule, 0 Refills, Maintenance, 03/06/23 16:00:00 EST, Capsule, [facility]-, Partial fill upon patient request if the prescription is for a schedule II opioid drug., 167, cm, 03/06/23 9:03:00 EST... Start Date: 03/06/23 Status: Ordered haloperidol 5 mg oral tablet 5 mg, By Mouth, 3 times a day, PRN, # 90 tablet, Refills 0, Tot. Refills 0, Maintenance, Agitation,03/06/23 16:00:00 EST, Route to Pharmacy Electronically, [facility]-, Partial fill upon patient request if the prescription is... Start Date: 03/06/23 Status: Ordered methylphenidate 27 mg oral tablet, extended release = 27 mg, By Mouth, Daily, # 30 tablet, 0 Refills, Maintenance, 03/06/23 16:01:00 EST, ER Tablet, [facility], Partial fill upon patient request if the prescription is for a schedule II opioid drug., 167, cm, 03/06/23 9:03:00 ES... Start Date: 03/06/23 Status: Ordered prazosin 1 mg oral capsule 1 mg, By Mouth, Daily at bedtime, # 30 capsule, Refills 0, Tot. Refills 0, Maintenance, 03/06/23 16:01:00 EST, Route to Pharmacy Electronically, [facility], Partial fill uponpatient request if the prescription is for a schedu... Start Date: 03/06/23 Status: Ordered prazosin 1 mg oral capsule 1 mg, Capsule, By Mouth, 03/06/23 21:00:00 EST Start Date: 03/06/23 Stop Date: 03/06/23 Status: Completed topiramate 25 mg oral tablet = 75 mg, By Mouth, Daily at bedtime, # 90 tablet, 0 Refills, Maintenance, 03/06/23 16:01:00 EST, Tablet, [facility], Partial fill upon patient request if the prescription is for a schedule II opioid drug., 167, cm, 03/06/23 9:... Start Date: 03/06/23 Status: Ordered Problem List [...] Range]: 1 2 3 Height 167 cm (03/07/23 9:09 AM) 167 cm (03/06/23 4:30 PM) 167 cm (03/06/23 9:00 AM) Weight 149.1 kg (02/10/23 4:16 PM) 149.0 kg (02/10/23 3:54 PM) Oxygen Saturation [94-100 %] 97 % (03/07/23 9:09 AM) 100 % (03/06/23 4:30 PM) 96 % (03/06/23 9:00 AM) Pulse Rate [55-90 bpm] 97 bpm *H* (03/07/23 9:09 AM) 100 bpm *H* (03/06/23 4:30 PM) 101 bpm *H* (03/06/23 9:00 AM) Body Mass Index [18.5-24.99 kg/m2] 53.43 kg/m2 *>HHI* (02/10/23 3:54 PM) Blood Pressure [90-138/55-84 mm Hg] 123/86mm Hg (03/07/23 9:09 AM) 136/88mm Hg (03/06/23 8:51 PM) 131/74mm Hg (03/06/23 4:30 PM) Respiratory Rate [16-30 br/min] 18 br/min (03/07/23 10:41 AM) 18 br/min (03/07/23 9:09 AM) 16 br/min (03/06/23 4:30 PM) Temperature [96.8-100.4 DegF] 97.8 DegF (03/07/23 9:09 AM) 97.6 DegF (03/06/23 4:30 PM) 97.7 DegF (03/06/23 9:00 AM) Mode of Delivery (Oxygen) Room air (03/07/23 9:09 AM) Room air (03/06/23 4:30 PM) Room air (03/06/23 9:00 AM) Blood pressure sites Arm, left (03/07/23 9:09 AM) Arm, left (03/06/23 4:30 PM) Arm, left (03/06/23 9:00 AM) Temperature Route Temporal (03/07/23 9:09 AM) Temporal (03/06/23 4:30 PM) Temporal (03/06/23 9:00 AM) Dry Weight 149.0 kg (02/10/23 3:54 PM) Weight Obtained Via Standing scale (02/10/23 4:16 PM) Standing scale (02/10/23 3:54 PM) Social History Social History Type Response Smoking Status 10 or more cigarette s (1/2 pack or more)/day in last 30 days entered on: 09/07/18 Sex Admission evaluation note * Petr ESTES, [place]: PERFORM, MODIFY, MODIFY, MODIFY Event Display: Admission Note Authored Date: [id number] Patient: ??IDRIS WALTER ? Age:??22 Years?Sex:??Female?:??2000?? Provider Clinical Summary 22-year-old??male to??female trans individual who has a??significant psychiatric history, includingalcohol abuse, borderline personality disorder, anxiety, and depression. She/they was discharged from the [facility] on 01/30/2023 and then presented to the ED on 02/08/2023??around 6:30 PM after??a suicideattempt by ingesting a high number of Tylenol pills (650 mg each). She experienced nausea and vomiting post-ingestion and continued to express suicidal ideation, but denied fever, shortness of breath, chest pain, coingestion of other substances, hallucinations, or homicidal ideation. Per medical admission note,??she was alert but in mild distress, with a heart rate of 139 bpm indicating tachycardia and normal respiratory rate and blood pressure. No abnormal findings were noted in the systemic examination. The patient's social history revealed current alcohol use, unemployment, poor exercise condition, living independently with housemates, and a cigarette smoking habit.??Initial management involved starting N-acetylcysteine (NAC) therapy for the Tylenol overdose, as the patient was less than 4 hours post-ingestion and already vomiting, making activated charcoal less viable. Consultation with poison control confirmed this plan. Lab results showed a significantly elevated Tylenol level of 431 mg/L, confirming the overdose. Other laboratory values were within normal limits, except for aslightly low bicarbonate level and a slightly high glucose level. Electrocardiogram??showed sinus tachycardia with normal intervals and no signs of ischemia. Given the severity of the Tylenol overdose and ongoing psychiatric concerns, the patient was admitted for continued administration of NAC andeventually she was??transferred to the psychiatric inpatient unit on 02/10/2023. ? She was placed on 1:1 constant observation and had and uneventful night. Today she is in better spirits and pleasant. Her only complaint is feeling sore and some back pain. She denies significant anxiety but has moderately severe depression. She says, Let me rest today! She reports feeling safe on the unit.?? However the team reports that she has a history self injurious behavior in the past admissions - such as??cutting and attempts to choke herself,etc. ??She is not willing to engage in a conversation to provide further details about her living circumstances and the causes of SI and suicide attempt at this time, but she reports feeling safe on the unit. She says she may contact [facility] later today by telephone. Most recent urine tox?? screen is negative for all substances. Chief Complaint depressed History of Present Illness The patient is not willing to engage in a conversation to provide further details about her living circumstances and the causes of SI and suicide attempt at this time, but she reports feeling safe onthe unit. Review of Systems Depression: decreased sleep, energy, concentration and appetite; Alyse: no distractibility or grandiosity. Psychosis: no AH, no VH, no paranoia/delusions.?? Anxiety: denies significant worrying, sleeplessness, fatigue, restlessness PTSD: denies current nightmares, flashbacks, irritability, hypervigilance, exaggerated startle response Constitutional symptoms: Negative.?? Skin symptoms: Negative.?? Eye symptoms: Negative.?? ENT symptoms: Negative.?? Respiratory symptoms: Negative.?? Cardiovascular symptoms: Negative.?? Gastrointestinal symptoms: Negative.?? Genitourinary symptoms: Negative.?? Musculoskeletal symptoms: Back pain, sore and weak muscles Neurologic symptoms: Negative.?? Psychiatric symptoms: As described above.?? Allergy/immunologic symptoms: Negative. Mental Status Vitals & Measurements T:??97.8?F?? TMIN:??97.8?F?? TMAX:??98.3?F?? HR:??76??(Peripheral)?? RR:??19?? BP:??140/73?? SpO2:??99%?? WT:??149.1??kg?? Appearance: casually dressed, fairly groomed, appears stated age Attitude: pleasant, cooperative Motor Activity: calm, no tremors or tics, good eye contact, gait is normal Mood: I'm feeling depressed Affect: somewhat constricted, depressed Speech: clear, appropriate inflection, good articulation, normal rate and tone Memory: grossly intact Orientation: oriented to person, time, and place Perception: Denies auditory hallucinations, no visual hallucinations. No delusions noted during theencounter. Thought process: linear Insight: fair Judgement: fair Self Injury:??Denies current ??suicidal ideation, denies plan or intent. Denies self injurious behaviors Homicidality: denies homicidal ideation, plan, or intent Depression Screen PHQ-9 = 15 (moderately severe depression) [place] Suicide Score [place] Suicide Assessment Ca (02/10/23) [place] Suicide Score Last Asked Ca (02/10/23) Suicidal Intent No Plan Last Asked-CSSRS: No (02/10/23) Suicidal Intent No Plan Past Month-CSSRS: No (02/10/23) Suicidal Thoughts Method Lst Asked-CSSRS: No (02/10/23) Suicidal Thoughts Method Past Mon-CSSRS: No (02/10/23) Suicidal Thoughts Past Month - CSSRS: Yes (02/10/23) Suicidal Thoughts Since Last Asked-CSSRS: Yes (02/10/23) Suicide Behavior Lifetime - CSSRS: Yes (02/10/23) Suicide Behavior Past 3 Months - CSSRS: Yes (02/10/23) Suicide Behavior Since Last Asked-CSSRS: No (02/10/23) Suicide Intent w/Plan Last Asked-CSSRS: No (02/10/23) Suicide Intent w/Plan Past Month - CSSRS: Yes (02/10/23) Wish to be Past Month - CSSRS: Yes (02/10/23) Assessment/Plan Major Depressive Disorder (she agrees to increase duloxetine from 30 to 60 mg in AM) ADHD (continue Methylphenidate ER Tablet, 27 mg, By Mouth, Daily) Borderline Personality Disorder R/O PTSD S/P Suicide Attempt with Tylenol Overdose Back pain (will start Motrin PRN) and muscle weakness (ambulating with a walker after PT eval) Nicotine Use (Nicotine patch) ? Team will continue supportive approach and encourage milieu participation as tolerated. Continue constant observation for now. Team to explore the nature of her stressors/ crisis further. Collaborate with outpatient providers. Problem List/Past Medical History Ongoing Alcohol use Borderline personality disorder Depression NATHAN (generalized anxiety disorder) History of ADHD History of COVID-19 History of suicide attempt Major depressive disorder, recurrent Severe obesity Tobacco dependence Transgender Procedure/Surgical History ???Cholecystectomy Medications Inpatient DULoxetine Capsule, 30 mg, By Mouth, Daily haloperidol 5 mg oral tablet, 5 mg, By Mouth, 2 times a day, PRN Methylphenidate ER Tablet, 27 mg, By Mouth, Daily Nicotine Topical, 21 mg, Topically, Daily prazosin 1 mg oral capsule, 1 mg, By Mouth, Daily at bedtime Remove Patch, 1 each, Topically, Daily Topiramate Tablet, 25 mg, By Mouth, Daily at bedtime Home duloxetine 30 mg oral enteric coated capsule, 30 mg= 1 capsule, By Mouth, Daily, 3 refills haloperidol 5 mg oral tablet, 5 mg= 1 tablet, By Mouth, 2 times a day, PRN methylphenidate 27 mg oral tablet, extended release, 27 mg, By Mouth, Daily prazosin 1 mg oral capsule, 1 mg, By Mouth, Daily at bedtime, 3 refills topiramate 25 mg oral tablet, 25 mg= 1 tablet, By Mouth, Daily, 3 refills Allergies Geodon??(full body tremors) Thorazine??(Skin rash) Trileptal [...] vac 03/02/2020 Recorded tetanus/diphtheria/pertussis, acel(Tdap) 12/22/2019 Given Lab Results Event Name?? Event Result?? Normal Range?? Date/Time?? COVID-19 PCR Specimen Source NASAL ?? 02/10/23 16:49:00 COVID-19 PCR Result NEGATIVE ?? 02/10/23 16:49:00 ? Hospital Progress note * Melissa Stapleton RN: PERFORM, SIGN, VERIFY Event Display: Progress Note Hospital Authored Date: [id number] Patient: IDRIS WALTER Age: 22 years Sex: Female : 2000 Associated Diagnoses: None Author: Melissa Stapleton RN Findings Problems Problem 1 : Problem - 1 03/07/2023 7:00 EST Problem 1 Danger/self - suicidal ideation Goals, Problem 1 to remain safe on the unit each shift Problem 1, Patient agrees to [...] Assess/observe regularly for signs of increasing anxiety, Encourage participation in groups, Offer medication as needed, Provide information about illness and recovery, Teach mindfulness, Teach techniques for self soothing, Help him/her identify feelings prior to onset of anxiety . Narrative/Incidental Idris, who goes by Dom, self-presented to the med room after breakfast looking bright, glowing in countenance. Dom verbalized that he is feeling good, and feels safe and ready for discharge. Dom endorsed 4/10 back pain and 4/10 anxiety. Dom denied depression and denied SI/SH/HI and denied A/VH. Dom had a BM this morning and is eating well. Dom is ambulating in the halls without their walker. Discharged to home with Leodan at 10:10. Pt feels safe and ready to discharge. Denies SI/SH/HI and denies A/VH. Discharge instructions reviewed and signed; medications reviewed. Valuables returned. Crisis numbers given.. Discharge Information Case Management Discharge Plan : Case Management Discharge Plan Data 03/07/2023 10:44 EST Discharge Level of Care at Discharge Home/Custodial/Foster Care * Luther Humphrey RN: VERIFY, PERFORM, SIGN Event Display: Progress Note Hospital Authored Date: [id number] Patient: IDRIS WALTER Age: 22 years Sex: Female : 2000 Associated Diagnoses: None Author: Luther Humphrey RN Findings Problems Problem 1 : Problem - 1 03/06/2023 9:00 EST Problem 1 Danger/self - suicidal ideation Goals, Problem 1 Idris will maintain safety Problem 1, Patient agrees to Attend groups, [...] Assess/observe regularly for signs of increasing anxiety, Encourage participation in groups, Explain unit rules clearly & honestly to pt, Monitor food and fluid intake, Monitor hygiene, Monitor sleep, Offer medication as needed, Provide information about illnessand recovery, Provide information about medication, Provide psychoeducation to patient and family, Set limits - behavior that interferes w/healing environment, Teach mindfulness, Teach relaxation and/or breathing skills, Review safety plan each shift, Meet regularly w/ pt -allow him/her to talk about concerns, Meet regularly w/ pt -allow him/her to talk about feelings, Assist patient to identify strengths Problem 1, Psychiatrist Interventions Evaluate medication, Order medication as appropriate, Supervise treatment Problem 1, Counselor Interventions Encourage participation in groups, Explain unit rules clearly & honestly to pt, Provide psychoeducation to patient and family, Set limits - behavior that interferes w/healing environment Problem 1, Social Work Interventions Review discharge plans Manager Of Supply Chain Comment: Problem 1 SCOTT Posey Problem 1, Start Date and Time 02/11/2024 13:51 Reviewed Plan With, Problem 1 Patient Patient Progression, Problem 1 Progressing . Narrative/Incidental Idris who prefers to be called Dom remains safe on Enhanced checks, is a fall risk and @ timesutilizing a walker for ambulation. Up to BR X1, somewhat restless in bed , when questioned about impending discharge reported feeling fantastic to be leaving later today. Appears to have slept 4-5 hours, will continue to monitor.. * Abdi Ashby: VERIFY, PERFORM, SIGN Event Display: Progress Note Hospital Authored Date: [id number] Patient: IDRIS WALTER Age: 22 years Sex: Female : 2000 Associated Diagnoses: None Author: Abdi Ashby Findings Problems Problem 1 : Problem - 1 03/06/2023 9:00 EST Problem 1 Danger/self - suicidal ideation Goals, Problem 1 Idris will maintain safety Problem 1, Patient agrees to Attend groups, [...] Assess/observe regularly for signs of increasing anxiety, Encourage participation in groups, Explain unit rules clearly & honestly to pt, Monitor food and fluid intake, Monitor hygiene, Monitor sleep, Offer medication as needed, Provide information about illnessand recovery, Provide information about medication, Provide psychoeducation to patient and family, Set limits - behavior that interferes w/healing environment, Teach mindfulness, Teach relaxation and/or breathing skills, Review safety plan each shift, Meet regularly w/ pt -allow him/her to talk about concerns, Meet regularly w/ pt -allow him/her to talk about feelings, Assist patient to identify strengths Problem 1, Psychiatrist Interventions Evaluate medication, Order medication as appropriate, Supervise treatment Problem 1, Counselor Interventions Encourage participation in groups, Explain unit rules clearly & honestly to pt, Provide psychoeducation to patient and family, Set limits - behavior that interferes w/healing environment Problem 1, Social Work Interventions Review discharge plans Manager Of Supply Chain Comment: Problem 1 SCOTT Posey Problem 1, Start Date and Time 02/11/2024 13:51 Reviewed Plan With, Problem 1 Patient Patient Progression, Problem 1 Progressing . Narrative/Incidental Idris Walter goes by the name Dom and uses they/them pronouns. They present AOxr4, insighful, demonstrated good judgement, sociable and appropriate with staff and select peers, well-kempt, had a bright affect, and were able to focus appropriately. They endorsed anxiety 4/10 and depression 2/10 while verbalizing: I'm really excited to leave. I just want to get it over with, already. They endorsed pain 8/10 from their back and they coped by resting in their bedroom when necessary. They denied SI, HI, constipation, and AVH to this marketing copywriter. Dom actively participated in their treatment bythinking, in advance, about how best to keep safe during the evening. They went to groups and took: Ativan 1 mg PO PRN anxiety to good effect Dom took their regularly scheduled medication and their V/S remained WNL on this shift. They are safe on enhanced checks.. Note * Flor Godoy NP: MODIFY, PERFORM Event Display: Discharge/Transfer Note Hospital Authored Date: [id number] Patient: ??IDRIS WALTER ? Age:??22 Years?Sex:??Female?:??2000?? Patient Information Discharge Location: [facility] Primary Care Physician: Nikki Hairston NP Admit Date/Time: 02/10/23 13:51 Discharge Disposition Discharge Disposition: Home with Home Health Discharge Diagnosis Borderline personality disorder (F60.3) NATHAN (generalized anxiety disorder) (F41.1) History of ADHD (Z86.59) History of suicide attempt (Z91.51) Major depressive disorder, recurrent (F33.9) Obese class I (Z68.30) Tobacco dependence (F17.200) ?? _ Discharge Medications Duloxetine (duloxetine 60 mg oral enteric coated capsule)?60?Milligram?By Mouth?Daily Haloperidol (haloperidol 5 mg oral tablet)?5?Milligram?By Mouth?3 times a day?as needed?Agitation Methylphenidate (methylphenidate 27 mg oral tablet, extended release)?27?Milligram?By Mouth?Daily Prazosin (prazosin 1 mg oral capsule)?1?Milligram?By Mouth?Daily at bedtime Topiramate (topiramate 25 mg oral tablet)?75?Milligram?By Mouth?Daily at bedtime ? Quality Measures Substance Use Treatment Provided at Discharge:??Patient interested in attending AA meetings??to avoid relapse on alcohol ?? Screening for Metabolic Disorders:?Lipid Panel,??02/10/2023:??Total cholesterol 237??(high),??triglycerides 178 (high), HDL 45 (low), LDL 150(high) Hemoglobin A1??C,??09/19/2022:??5.6??(within normal limits) ? Inpatient Medications Medications (13) Active SCHEDULED: (7) Bacitracin Topical 0.9 GM Ointment (UD) (Bacitracin Topical Oint) ??1 application, Topically, 2 times a day Duloxetine 60 mg Capsule (DULoxetine Capsule) ??60 [...] Mouth, Daily at bedtime CONTINUOUS: (0) PRN: (6) Haloperidol 5 mg Tablet (haloperidol 5 mg oral tablet) ??5 mg, By Mouth, 2 times a day HydrOXYzine Pamoate 25mg Capsule (hydrOXYzine pamoate 25 mg oral capsule) ??50 mg, By Mouth, Every 6 hours Ibuprofen 400 mg Tablet (Motrin Tablet) ??400 mg, By Mouth, 3 times a day Lorazepam 1 mg Tablet (LORazepam 1 mg oral tablet) ??1 mg, By Mouth, 2 times a day Ondansetron 4 mg ODT (Zofran ODT 4 mg oral tablet, disintegrating) ??4 mg, By Mouth, 2 times a day Propranolol 20 mg Tablet (propranolol 20 mg oral tablet) ??20 mg, By Mouth, 2 times a day ? Medications Started None Medications Discontinued None Doses Changed Topiramate raised??from 25 mg daily to 75 mg daily,??duloxetine raised to 60 mg daily PCP Follow-Up/Heads-Up Recommend??continued monitoring of??generalized pain and fatigue symptoms Hospital Course Admission Note, Dr. Blanco, 02/12/2024 22-year-old??male to??female trans individual who has a??significant psychiatric history, includingalcohol abuse, borderline personality disorder, anxiety, and depression. She/they was discharged from the [facility] on 01/30/2023 and then presented to the ED on 02/08/2023??around 6:30 PM after??a suicideattempt by ingesting a high number of Tylenol pills (650 mg each). She experienced nausea and vomiting post-ingestion and continued to express suicidal ideation, but denied fever, shortness of breath, chest pain, coingestion of other substances, hallucinations, or homicidal ideation. Per medical admission note,??she was alert but in mild distress, with a heart rate of 139 bpm indicating tachycardia and normal respiratory rate and blood pressure. No abnormal findings were noted in the systemic examination. The patient's social history revealed current alcohol use, unemployment, poor exercise condition, living independently with housemates, and a cigarette smoking habit.??Initial management involved starting N-acetylcysteine (NAC) therapy for the Tylenol overdose, as the patient was less than 4 hours post-ingestion and already vomiting, making activated charcoal less viable. Consultation with poison control confirmed this plan. Lab results showed a significantly elevated Tylenol level of 431 mg/L, confirming the overdose. Other laboratory values were within normal limits, except for aslightly low bicarbonate level and a slightly high glucose level. Electrocardiogram??showed sinus tachycardia with normal intervals and no signs of ischemia. Given the severity of the Tylenol overdose and ongoing psychiatric concerns, the patient was admitted for continued administration of NAC andeventually she was??transferred to the psychiatric inpatient unit on 02/10/2023. ? She was placed on 1:1 constant observation and had and uneventful night. Today she is in better spirits and pleasant. Her only complaint is feeling sore and some back pain. She denies significant anxiety but has moderately severe depression. She says, Let me rest today! She reports feeling safeon the unit.?? However the team reports that she has a history self injurious behavior in the past admissions - such as??cutting and attempts to choke herself,etc. ??She is not willing to engage in aconversation to provide further details about her living circumstances and the causes of SI and suicide attempt at this time, but she reports feeling safe on the unit. She says she may contact her dad later today by telephone. Most recent urine tox?? screen is negative for all substances. Chief Complaint depressed ?? Hospital Course Patient was admitted??on a conditional voluntary.?? Monitored on??1: 1 constant observation due to a history of self-harming behaviors??while inpatient,??all appropriate safety measures in place.?? Treatment team saw the patient daily for medication management, mental status exam, and safety assessment.?? Mitchell was initially??in good behavioral control??and without self harm, hoping for a quick admission.?? Their outpatient team reported??that this was the??third??of 3 serious suicide attemptssince Thanksgiving, and after several meetings, the outpatient team recommended that the patient move from their current??independent living setting to a custodial setting.?? I initially, Mitchell accepted this calmly, but??mood and behavior??decompensated for several days.?? They did some head banging??and scratching of their hands.?Intermittently??resting in bed and withdrawn??due to??physical pain and fatigue. ??Came off of one-to-one observation briefly??as they were doing better, brighter and attending groups. ??But??returned to her??monitoring after??attempting to strangle themselves with a pair of yoga pants.?? The patient??at that time??received IM medications.?? They were unable to identify other triggers.?? Generally was satisfied with??medication??regimen, but was open to??increase of both duloxetine, to target pain and depression??and??topiramate to target?impulsivity.?? Patient tolerated these med changes well??and appeared to benefit.?? Patient gradually??improved.?? His forthright about baseline thoughts of suicidality, but was able to do??demonstrate??healthy coping skills???distracting self, talking to supportive people, taking as needed medication.?? At timeof discharge had had several??positive days, participating in the milieu coping effectively, with??t houghtful plans for managing themselves once discharged. ?? Day of Discharge??Note Mitchell is bright and??hopeful today.?? Organized in thought and speech, using humor.?? Acknowledges??baseline??thoughts of self-harm/SI but denies??they are frequent, denies any intention to make plans or??act??on them. ??Will reach out to supportive people??if??feeling urges???her father, her clinician or the crisis line. ??Will return to the ER if necessary.?? They are looking forward to using their phone, grocery shopping with her father this afternoon??and??listening to music again.?? They are??in good behavioral control??and appropriate for discharge from??the [facility] today ?? Psychiatric Review of Systems Depression:??Denies SI, no??evidence of depression Anxiety:??None evident?? Alyse:none evident Psychotic:??None evident PTSD:??None evident currently ADHD:??None evident currently ?? Mental Status Exam ?? General appearance:??Well-groomed, appears stated age Eye contact:??Within normal limits Musculoskeletal:??No impairments noted Behavior:??Cooperative Speech:??Organized, fluent, normal rate/volume Mood:??Cheerful Affect:??Congruent Thought content:?? Having stuff back Thought process:??Organized, goal oriented Suicidality/self harm:??Denies Homicidality/violence:??Denies Cognition:??Intact Insight:??Good Judgment:??Fair to good Reliability:??Fair to good??1 Objective Assessment and Plan ? Vital Signs?? Temperature: 97.6 DegF (03/06/23 16:30:00) Temperature Route: Temporal (03/06/23 16:30:00) Pulse Rate:??100 bpm??High (03/06/23 16:30:00) Respiratory Rate: 16 br/min (03/06/23 16:30:00) Systolic Blood Pressure: 136 mm Hg (03/06/23 20:51:00) Diastolic Blood Pressure:??88 mm Hg??High (03/06/23 20:51:00) Blood pressure sites: Arm, left (03/06/23 16:30:00) Mean Arterial Pressure: 93 mm Hg (03/06/23 16:30:00) Pulse Pressure: 57 mm Hg (03/06/23 16:30:00) Oxygen Saturation: 100 % (03/06/23 16:30:00) Mode of Delivery (Oxygen): Room air (03/06/23 16:30:00) ? . Physical Exam Vital signs and labs reviewed Consultants Seen by hospitalist on admission Pending Results No Pending Results Patient Instructions [...] provideror crisis line?? Post Discharge Care Discharge ?03/07/23 15:59:00 EST Home Health Face to Face ^HomeHealthFTF Results Discharge Labs VIROLOGY COVID-19 PCR Specimen Source NASAL ()?? 02/10/2023 16:49 COVID-19 PCR Result NEGATIVE ()?? 02/10/2023 16:49 ? _50 minutes spent on discharge * Melissa Stapleton RN: PERFORM Event Display: Patient Education/Instruction Authored Date: Inpatient Adult Discharge Instructions [facility] Inpatient Psychiatry [facility] [place] [address] Name: IDRIS WALTER : 2000 Visit: 02/10/2023 13:51:00 Current Date: 03/07/2023 09:20 Account: [id number] Inpatient Adult Discharge Instructions We would like [...] and their families. Surveys are administered by [employer] ?? If further treatment with your primary care physician or another doctor is recommended, it is important for you to keep the appointment. Call your primary care physician or return to the Emergency Department immediately if your condition worsens, fails to improve, or new symptoms develop. If you need to find a doctor, you can call [facility] Mindscape Link for a referral at [phone] or toll free at [phone]) or log in to [email or web address].. ?? [facility], in keeping with [facility] guidance, no longer requires face [...] a health care sharonda of your choosing. [employer] is a website that allows you to securely view your medical information including your hospital discharge summary, office visit summaries, medications and follow-up visits. You can also request appointments, renew medications, and request access to your medical information using a health care sharonda of your choosing, or just ask a question. You can enroll at [email or web address] or register during your next office visit. You have been discharged from [facility] Inpatient Psychiatry, Patient Care Unit: MHU. If you have any questions regarding these instructions after you leave, please call us and we will be happy to assist you. [facility] Inpatient [facility] Your Care Team Attending Physician Rick Gray MD, Annmarie Skaggs Discharging Providers Flor Godoy NP Reason for Admission depressed Your Diagnosis Borderline personality disorder NATHAN (generalized anxiety disorder) History of suicide attempt Major depressive disorder, recurrent Obese class I History of ADHD Tobacco dependence Tests Performed Below is a partial list of the tests performed during your hospitalization. You may have had other tests and procedures not included in this list. Please discuss all test results with your provider. COVID-19 (2019 Novel Coronavirus) PCR Primary Care Provider Nikki Hairston NP Advance Directive Health Care Proxy on File No Patient refuses to discuss Discharge Vitals Temperature: 97.8 DegF Height: 167 cm Pulse Rate:??97 bpm??High Weight: 149.1 kg Respiratory Rate: 18 br/min Body Mass Index:??53.43 kg/m2??Critical Systolic Blood Pressure: 123 mm Hg Body surface area: 2.63 Diastolic Blood Pressure:??86 mm Hg??High ?? Oxygen Saturation: 97 % ?? Studies Pending All tests and labs ordered during this hospital stay have been completed unless listed below. Please discuss all pending results with your provider listed above in these instructions. ?? No incomplete studies found What to do next Instructions From Your Doctor Discharge Orders Discharge Medications MORGAN IDRIS :2000 Visit Date:02/10/2023 Medications: Please continue your medications until treatment is completed or stopped by your provider. Medications not listed below should be discontinued. Discuss any questions related to medications with your provider. What How Much When Instructions Next Dose Changed Duloxetine (duloxetine 60 mg oral enteric coated capsule) 60 Milligram Oral Daily Pickup at [place] [id number] 1/25 AM Changed Haloperidol (haloperidol 5 mg oral tablet) 5 Milligram Oral 3 times a day as needed for Agitation Pickup at [facility] As Needed Changed Topiramate (topiramate 25 mg oral tablet) 75 Milligram Oral Daily at Bedtime Pickup at [facility]03/07 PM Unchanged Methylphenidate (methylphenidate 27 mg oral tablet, extended release) 27 Milligram Oral Daily Pickup at [facility]03/08 AM Unchanged Prazosin (prazosin 1 mg oral capsule) 1 Milligram Oral Daily at Bedtime Pickup at [facility]03/07 PM Pharmacy Information [facility]: [address] [place] [id number] [phone] Test Results Below is a partial list of the most recent Laboratory test results done prior to this discharge. You may have had other tests and procedures not included in this list. Please discuss all test resultswith your provider. COVID-19 (2019 Novel Coronavirus) PCR (02/10/2023) ???COVID-19 PCR Specimen Source - NASAL???COVID-19 PCR Result - NEGATIVE Allergies (NKA means No Known Allergies) Geodon??(full [...] Belongings I fully understand and agree that [facility] accepts no responsibility for all [...] patient Date for Pt to Sign Valuables/Belongings: 02/10/23 14:12:00 ?? Other Discharge Information ? Pulmonary Rehab Status?? Pulmonary Rehab Discharge Status?? Respiratory Rate: 18 br/min ?? Psychiatric Discharge Plan?? Discharge Plan Psych?? Outpatient Services?? Other Agency?? Crisis Services?? Level of Care at Discharge: Home/Family/SelfCare/RestHome/Group Home/Sub AbuseTx ([facility]) Domestic Violence Agency: [facility] ([facility]) [phone] Physician/PCP: [facility] [address] [place] [id number] FAX: Psychiatric Crisis Services: For your area are available 24 hours every day, by calling: Discharge Plan Additional Information: You are discharging today and retuning to your home. You declined assistance w/ discharge planning. You prefer to schedule your own appointments. [facility] Contact: ACCS- Leodan Chiang[address] [place] [address] PBI: [phone] Instructions: You plan to schedule an appointment with your PCP, Urologist, Neurologist and Clerk Television Production after discharge. Crisis Services: [facility] - [employer] [phone] Mode of Transportation: Leodan Chiang ? Arranged Transport Date/Time: 03/07/23 10:00:00 ? Common Emergency Awareness Tips IS IT [...] are strongly encouraged to quit. Please call [facility] Mindscape Link at [phone] or [phone] ([phone]) or log in to [email or web address] for referrals to smoking cessation programs. ?? 354 Suicide & Crisis Lifeline is available 04/09 if you or someone you know needs to find a reason to keep living. By calling 285 you'll be connected to a skilled, trained counselor at a crisis center in your area. INPATIENT DISCHARGE INSTRUCTIONS SIGNATURE PAGE IDRIS WALTER Location:[facility] Inpatient Psychiatry Registration Date and Time:02/10/2023 13:51 EST Primary Care Physician: Nikki Hairston NP, Attending Physician: Annmarie Balderas MD, I IDRIS WALTER, have received the above patient education materials/instructions and have verbalizedunderstanding. If ambulance or transport services are being used I further acknowledge being given a choice of service. ?? If you need to contact me, please call me at this number: . Patient/Monogram Maker Name: Patient/Monogram Maker Signature: Relationship to Patient: Witness Name/Signature: Date: * Dania Delgado: PERFORM Event Display: Discharge/Transfer Note Hospital Authored Date: [id number] Psychiatric Discharge Plan Entered On: 03/06/2023 13:07 EST Performed On: 03/06/2023 12:58 EST by Dania Delgado Discharge Plan Level of Care at Discharge : Home/Family/SelfCare/RestHome/Group Home/Sub AbuseTx (AHR) Discharge Plan Additional Information : You are discharging today and retuning to your home. You declined assistance w/ discharge planning. You prefer to schedule your own appointments. Mode of Transportation : Dania Bar - 03/06/2023 12:58 EST Arranged Transport Date/Time : 03/07/2023 10:00 EST Dania Delgado - 03/07/2023 9:00 EST Outpatient Services Domestic Violence Agency : [facility] ([facility]) [phone] [facility] Contact : [facility]- Leodan Chiang [address] [place] [address] FAX: [phone] Dania Delgado - 03/06/2023 12:58 EST Other Physician/PCP : Narda Fonseca [facility] [address] [place] [address] FAX: Instructions : You plan to schedule an appointment with your PCP, Urologist, Neurologist and Clerk Television Production after discharge. Dania Delgado - 03/06/2023 12:58 EST Crisis Services Psychiatric Crisis Services : For your area are available 24 hours every day, by calling: Crisis Services : [facility] - [facility] [phone] Dania Delgado - 03/06/2023 12:58 EST Patient Care team information Care Team Personnel Name: Garcia Baez RN Position: [facility] RN Member Role: Primary Care Nurse Name: Leah Almonte RN Position: S RN Member Role: Primary Care Nurse Name: Natasha Dickey RN Position: S RN Member Role: Primary Care Nurse Name: Kellee Garvin RN Position: [facility] RN Member Role: Primary Care Nurse Name: Maegan Diaz RN Position: [facility] RN Member Role: Primary Care Nurse Name: Genesis Lea RN Position: [facility] RN Member Role: Primary Care Nurse Name: Nikki Hairston NP Position: [facility] PCO Associate Professional Member Role: PCP Address: Address: [address] [place] [address] Name: Alejandra Gilbert RN Position: [facility] RN Member Role: Primary Care Nurse Name: Blaire Solis RN Position: [facility] RN Member Role: Primary Care Nurse Name: Zara Colon RN Position: [facility] RN Supv Member Role: Primary Care Nurse Name: Stefani Pinto RN Position: [facility] RN Member Role: Primary Care Nurse Name: Araceli Quevedo RN Position: [facility] RN Member Role: Primary Care Nurse Name: Fatoumata Loyd RN Position: [facility] RN Member Role: Primary Care Nurse Name: Melissa Stapleton RN Position: [facility] RN Member Role: Primary Care Nurse Name: Ligia Stapleton RN Position: [facility] RN Member Role: Primary Care Nurse Name: Melissa Davison RN Position: [facility] RN Member Role: Primary Care Nurse Name: Trinidad Ordonez RN Position: [facility] RN Member Role: Primary Care Nurse Name: Mariaelena Collazo RN Position: [facility] RN Member Role: Primary Care Nurse Name: Shankar Man Position: [facility] RN Member Role: Primary Care Nurse Name: Nikki Croft RN Position: [facility] RN Member Role: Primary Care Nurse Name: John Cuellar RN Position: [facility] RN Member Role: Primary Care Nurse Name: Christos Godoy RN Position: [facility] RN Member Role: Primary Care Nurse Care Team Related Persons Name: PENITENTIARY RECORD CLERK SALESPERSONYENI Address: [address] [address] Name: YULIYA WALTER Address: home [address] [place] [address] Name: SUNDAY WALTER Address: [place] [address]
--- OUTSIDE RECORDS SUMMARY | 2023-06-07 19:11 | XMS_ITS | Continuity of Care Document ---
Author Organization [facility] Address [address] [place] [address]- Care Team Providers Care Internal Grinder Set Up Operator Name Role Phone Katie RILEY, Narda Fonseca Primary Care Blanco marino Encounter [facility] Date(s): 10/17/21 - 10/18/[address] [address]- Encounter Diagnosis Depressed(Final) - 10/18/21 Discharge Disposition: A-D/C Home Attending Physician: Vasiliy Lewis DO Admitting Physician: Vasiliy Lewis DO Referring Physician: Not on Staff, Referring [...] Recorded tetanus/diphtheria/pertussis, acel(Tdap) 12/22/19 Given Medications acetaminophen 500 mg oral tablet 2 tablet = 1,000 mg, By Mouth, Every 6 hours, PRN for fever, for 2 days, # 12 tablet, 0 Refills, Acute 10/20/21 12:56:00 EDT, 10/18/21 12:56:00 EDT, Tablet, [facility]-[id number], Partial fill upon patient request if the prescription is f... Start Date: 10/18/21 Stop Date: 10/20/21 Status: Ordered ARIPiprazole 20 mg oral tablet 1 tablet = 20 mg, By Mouth, Daily, # 30 tablet, 0 Refills, Maintenance, 09/15/21 12:18:00 EDT, Tablet, [facility]-[id number], Partial fill upon patient request if the [...] 0 Refills, Maintenance, 09/15/21 12:17:00 EDT, Capsule, [facility]-[id number], Partial fill upon patient request if the [...] 0 Refills, Maintenance, 09/15/21 12:18:00 EDT, Tablet, [facility]-[id number], Partial fill upon patient request if the [...] 09/15/21 12:16:00 EDT, Route to Pharmacy Electronically, [facility]-[id number], Partial fill upon patient request if the [...] Range]: 1 2 3 Height 168 cm (10/17/21 11:47 PM) Weight 145.5 kg (10/17/21 11:47 PM) Oxygen Saturation [94-100 %] 99 % (10/18/21 1:13 PM) 97 % (10/18/21 8:27 AM) 97 % (10/17/21 11:47 PM) Pulse Rate [55-90 bpm] 82 bpm (10/18/21 1:13 PM) 80 bpm (10/18/21 8:27 AM) 91 bpm *H* (10/17/21 11:47 PM) Blood Pressure [90-138/55-84 mm Hg] 115/95mm Hg (10/18/21 1:13 PM) 106/70mm Hg (10/18/21 8:27 AM) 128/69mm Hg (10/17/21 11:47 PM) Respiratory Rate [16-30 br/min] 18 br/min (10/18/21 1:13 PM) 18 br/min (10/18/21 8:27 AM) 18 br/min (10/17/21 11:47 PM) Temperature [96.8-100.4 DegF] 97.5 DegF (10/18/21 1:13 PM) 98.0 DegF (10/18/21 8:27 AM) 97.9 DegF (10/17/21 11:47 PM) Mode of Delivery (Oxygen) Room air (10/18/21 1:13 PM) Room air (10/18/21 8:27 AM) Room air (10/17/21 11:47 PM) Blood pressure sites Arm, left (10/18/21 1:13 PM) Arm, left (10/18/21 8:27 AM) Arm, left (10/17/21 11:47 PM) Temperature Route Temporal (10/18/21 1:13 PM) Temporal (10/18/21 8:27 AM) Temporal (10/17/21 11:47 PM) Dry Weight 145.5 kg (10/17/21 11:47 PM) Weight Obtained Via Patient/family state d (10/17/21 11:47 PM) Dry Weight Obtained Via Patient/family s tated (10/17/21 11:47 PM) Social History Social History Type Response Smoking Status 10 or more cigarette s (1/2 pack or more)/day in last 30 days entered on: 12/11/20 Sex Care Team Personnel Name: Narda Wilson NP Address: [address] [place] [id number]
--- OUTSIDE RECORDS SUMMARY | 2023-06-07 19:11 | XMS_ITS | Continuity of Care Document ---
Author Organization [facility] Address [address] [place] [address]- Care Team Providers Care Public Works Director Name Role Phone Anny Arnett Primary Care Physician Encounter [facility] Date(s): 12/16/22 - 12/16/[address] [address]- Discharge Disposition: A-D/C Home Attending Physician: Mario [...] 0 Refills, Maintenance, 10/10/22 10:08:00 EDT, Capsule, [id number], Partial fill upon patient request if the prescription is for a schedule II opioid drug., 168, cm, 10/10/22 9:07... Start Date: 10/10/22 Status: Ordered fluticasone 27.5 mcg/inh nasal spray 2 sprays, Nares, Both, Daily, PRN for allergy symptoms, # 10 Gm, 0 Refills, Maintenance, 10/12/22 4:42:00 EDT, [place], Partial fill upon patient request if the prescription is for a schedule II opioiddrug. Start Date: 10/12/22 Status: Ordered gabapentin 300 mg oral capsule 300 mg, By Mouth, Daily, # 30 capsule, Refills 0, Tot. Refills 0, Maintenance, 10/10/22 10:08:00 EDT, Route to Pharmacy Electronically, [facility] ([id number], Partial fill upon patient request if the [...] Maintenance, 10/10/22 10:08:00 EDT,Route to Pharmacy Electronically, [facility] ([id number], Partial fill upon patient request if the [...] Refills, Maintenance, 10/10/22 10:10:00 EDT, DIS Tablet, [facility] ([id number], Partial fill upon patient request if the prescriptionis for a schedule II opioid drug., 168, cm, 2... Start Date: 10/10/22 Status: Ordered prazosin 1 [...] [Reference Range]: 1 2 Height 168 cm (12/16/22 12:16 AM) Weight 136.5 kg (12/16/22 12:16 AM) Oxygen Saturation [94-100 %] 100 % (12/16/22 2:00 AM) 100 % (12/16/22 12:16 AM) Pulse Rate [55-90 bpm] 105 bpm *H* (12/16/22 2:00 AM) 114 bpm *H* (12/16/22 12:16 AM) Blood Pressure [90-138/55-84 mm Hg] 131/ 75mm Hg (12/16/22 2:00 AM) 134/95mm Hg (12/16/22 12:16 AM) Respiratory Rate [16-30 br/min] 18 br/mi n (12/16/22 2:00 AM) 21 br/min (12/16/22 12:16 AM) Mode of Delivery (Oxygen) Room air (12/16/22 2:00 AM) Room air (12/16/22 12:16 AM) Blood pressure sites Arm, left (12/16/22 2:00 AM) Arm, left (12/16/22 12:16 AM) Dry Weight 136.5 kg (12/16/22 12:16 AM) Weight Obtained Via Patient/family state d (12/16/22 12:16 AM) Social History Social History Type Response Smoking Status 10 or more cigarette s (1/2 pack or more)/day in last 30 days entered on: 09/07/18 Sex Note * Mario Alberto Colon MD: PERFORM, SIGN, VERIFY Event Display: Patient Education Handout Authored Date: [id number] * Mario Alberto Colon MD: PERFORM Event Display: Patient Education Leaflets Authored Date: [id number] Potassium-Rich Foods ?? [id number] Potassium-Rich Foods The recommended average daily intake of potassium for a healthy man is 3,400 mg a day. For a healthy woman who is not , the amount is 2,600 mg a day. More potassium is needed when you lose too much potassium from your body. This can happen if you have diarrhea or vomiting. Or if you have inflammatory bowel disease. It can also happen if you take a medicine to make you urinate more (diuretic) or large doses of laxatives. People with chronic kidney disease must be careful not to get too much potassium. If your healthcare provider tells you that you need to increase the amount of potassium in your diet, include these high-potassium foods. [The (*) indicates foods highest in potassium.] Vegetables Artichokes. Cooked 1/2 cup, 200 mg to 300 mg* Asparagus. Cooked 1/2 cup, 200 mg to 300 mg Beans. White, red, fink cooked??1/2 cup, 300 mg??to 500 mg* Beets. Cooked 1/2 cup, 200 mg??to 300 mg Broccoli. Cooked or raw 1 cup, 200 mg??to 500 mg* [place] sprouts. Cooked 1/2 cup, 200 mg??to 300 mg Cabbage. Raw 1 cup, 100 mg??to 200 mg Carrots. Raw or cooked 1/2 cup, 100 mg??to 200 mg Celery. Raw 1 cup, 200 mg to 300 mg Mallory beans. Fresh or frozen 1/2 cup, 300 mg??to 500 mg*?? Mushrooms. Raw or cooked 1/2 cup, 100 mg??to 300 mg Peas. Cooked 1/2 cup, 150 mg to 250 mg?? Potatoes. Baked 1 medium, 500 mg??to 900 mg*?? Spinach. Cooked??1 cup, 800 mg??to 900 mg*?? Spinach. Raw??2 cups, 300 mg??to 400 mg* Squash, winter. Fresh, frozen, or cooked 1/2 cup, 200 mg??to 400 mg?? Tomato. Fresh 1 medium, 200 mg??to 300 mg?? Tomato juice. Canned 1/2 cup, 200 mg??to 300 mg? Fruits Apple juice. Unsweetened 1 cup, 200 mg??to 300 mg?? Apricots. Canned 1/2 cup, 200 mg??to 300 mg?? Apricots. Dried 4 pieces, 100 mg??to 200 mg?? Avocado. Raw 1/2 cup, 300 mg??to 400 mg* Banana. Fresh 1 small, 300 mg??to 400 mg*?? Cantaloupe. Fresh 1 cup diced, 300 mg??to 400 mg*?? Grape juice. Unsweetened 1 cup, 200 mg??to 300 mg?? Honeydew melon. Fresh 1 cup diced, 300 mg??to 400 mg*?? [place]. Fresh 1 medium, 200 mg??to 300 mg ?? [place] juice. Unsweetened, fresh or frozen 1/2 cup, 200 mg??to 300 mg Pineapple juice. Unsweetened 1 cup, 300 mg??to 400 mg?? Prune juice. Unsweetened 1/2 cup, 300 mg??to 400 mg*?? Prunes. Dried 5 pieces, 300 mg??to 400 mg*?? Strawberries. Fresh or frozen 1 cup, 200 mg??to 300 mg ?? Meat Red meat. Cooked 3 ounces, 100 mg??to 300 mg? Seafood Cod, flounder, halibut. Cooked 3 ounces, 100 mg??to 300 mg* [place]. Cooked,??3 ounces 300 mg??to 400 mg*?? Scallops. Cooked 3 ounces, 200 mg??to 300 mg* Shrimp. Cooked 3/4 cup, 100 mg??to 200 mg?? Tuna. Fresh or canned 3/4 cup, 200 mg??to 500 mg? Last Reviewed Date: 2022 ?? 7435-2063 [employer]. All rights reserved. This information is not intended as a substitute for professional medical care. Always follow your healthcare professional's instructions. ?? * Darlene ESTES, Mario Alberto Ortiz: PERFORM Event Display: Patient Education Leaflets Authored Date: [id number] Potassium Content Fruit ?? [address] [facility] Potassium Content of Fruits Serving Size ?? cup, unless otherwise indicted Juices: 6 oz Low Potassium Fruits (150 mg or less) Applesauce Apricots canned or 1 fresh Blueberries Boysenberries Fruit cocktail Passion fruit 1 fresh Persimmon, 1 fresh Pineapple, fresh Plums, canned or 1 fresh [place], 1 fresh Cranberry juice Cran-Apple juice Cran-Apricot juice Cran-Grape juice Cran-Raspberry juice Papaya nectar [place] nectar Pear nectar ? Medium Potassium Fruits (155-245 mg) Apple 1 medium Blackberries Cherries, canned, 10 fresh Grapefruit, ?? fresh Grapes, 15 small Mandarin oranges [place] ?? medium fresh [place], 1 medium Pear, 1 medium Pineapple, canned Prunes, dried 3 Red raspberries Rhubarb Strawberries, 5 fresh Watermelon, 1 cup Apple juice Apple-Raspberry juice Grape juice Pineapple juice Pineapple-[place] juice [place] juice Pear, 1 fresh ? High Potassium Fruits (250-395 mg) Apricots, 3 fresh Dates, 7 Figs, 3 Kiwi, 1 fresh Nectarine, 1 fresh [place], 1 medium Papaya, ?? fresh Pomegranate, 1 fresh Tangelo, 1 fresh [place] juice ? Very High Potassium Fruits (more than 400 mg) Apricots, dried, 10 halves Avocado, ?? medium Banana, ?? fresh Cantaloupe, 1 cup, cubed Honeydew melon, 1 Cup, cubed Peaches, dried, 5 halves Pears, dried, 5 halves Plantain, ?? fresh Prunes, 6 or more Raisins, 2 tablespoons Passion Fruit juice Prune Juice Breadfruit, raw ? * Darlene ESTES, Mario Alberto Ortiz: PERFORM Event Display: Patient Education Leaflets Authored Date: [id number] Fainting: Vagal Reaction ?? [id number] Fainting: Vagal Reaction Fainting (syncope) is a temporary loss of consciousness. It???s also called passing out. It occurs when blood flow to the brain is reduced. Your healthcare provider believes that your fainting was because of a vagal reaction. This is usually not a sign of serious disease. A vagal reaction causes your pulse to slow down or the blood vessels to expand. This causes your blood pressure to fall. Less blood to your brain if you are standing or sitting. That results in dizziness, near-fainting, or fainting. Lying down and raising (elevating) your feet often stops the reaction. Fainting can occur during sudden fear, severe pain, emotional stress, overexertion, overheating. Hunger, nausea or vomiting, prolonged standing, or standing up after sitting or lying for a long time can also cause it. Home care Follow these steps when caring for yourself at home: ??? Get plenty of rest. Go back to your normalactivities as soon as you are feeling back to normal. ??? Stay hydrated and avoid skipping meals. ??? If you feel lightheaded or dizzy, lie down right away and elevate your legs. ?? Follow-up care Follow up with your healthcare provider, or as advised. Call 911 Call 911 if any of the following occur: ??? Another fainting spell that???s not explained by the common causes listed above ??? Pain in your chest, arm, neck, jaw, back, or abdomen ??? Shortness of breath ??? Severe headache or seizure ??? Your heart beats very rapidly, very slowly, or irregularly (palpitations) ?? Last Reviewed Date: 2021 ?? 1715-4359 [employer]. All rights reserved. This information is not intended as a substitute for professional medical care. Always follow your healthcare professional's instructions. ?? Patient Care team information Care Team Personnel Name: Natasha Dickey RN Position: S RN Member Role: Primary Care Nurse Name: Anny Arnett Position: [facility] Associate Professional Member Role: PCP Address: Address: [address] [facility] [place] [address]- [place] Name: Genesis Lea RN Position: [facility] RN Member Role: Primary Care Nurse Name: Blaire Solis RN Position: [facility] RN Member Role: Primary Care Nurse Name: Stefani Pinto RN Position: [facility] RN Member Role: Primary Care Nurse Name: Melissa Stapleton RN Position: [facility] RN Member Role: Primary Care Nurse Name: Ligia Stapleton RN Position: [facility] RN Member Role: Primary Care Nurse Name: Trinidad Ordonez RN Position: [facility] RN Member Role: Primary Care Nurse Name: Mariaelena Collazo RN Position: [facility] RN Member Role: Primary Care Nurse Name: Nikki Croft RN Position: [facility] RN Member Role: Primary Care Nurse Name: John Cuellar RN Position: [facility] RN Member Role: Primary Care Nurse Name: Christos Godoy RN Position: [facility] RN Member Role: Primary Care Nurse Name: Mario Alberto Colon MD Position: [facility] ED Medicine MD Member Role: ED Attending Physician Address: Address: [address] [place] [address] [place] [address]- Name: Prachi Solorzano RN Position: [facility] ED RN W/OE and Tasks Member Role: Patient Care Provider Care Team Related Persons Name: [facility] [employer] Address: home [address] [place] [address] Name: YULIYA MORA Address: home [address] [place] [address] Name: SUNDAY [place]ORA Address: [place] [address]
--- OUTSIDE RECORDS SUMMARY | 2023-06-07 19:11 | XMS_ITS | Continuity of Care Document ---
Author Organization [facility] Address [address] [place] [address]- Care Team Providers Care Open Hearth Furnace Operator Name Role Phone Katie RILEY, Narda Marian Primary Care Physici an Encounter [facility] Date(s): 07/03/21 - 07/14/21 [facility] [address] [place] [address]- Discharge Disposition: A-D/C Home Attending Physician: Enrique Nelson MD Admitting Physician: Enrique Nelson MD Referring Physician: Not on Staff, Referring [...] 03/02/20 Recorded tetanus/diphtheria/pertussis, acel(Tdap) 12/22/19 Given Medications gabapentin 300 mg oral capsule 300 mg, 1, capsule, By Mouth, 3 times a day, # 90 capsule, Refills 0, Tot. Refills 0, Maintenance, 07/14/21 11:03:00 EDT, Route to [facility] Electronically, [id number], Partialfill upon patient request if the prescription is fo... Start Date: 07/14/21 Status: Ordered gabapentin 300 mg oral capsule 300 mg, Capsule, By Mouth, 07/14/21 9:00:00 EDT Start Date: 07/14/21 Stop Date: 07/14/21 Status: Completed Imitrex 25 mg oral tablet 4 tablet [...] oral capsule 2 mg, Capsule, By Mouth, 07/13/21 21:00:00 EDT Start Date: 07/13/21 Stop Date: 07/13/21 Status: Completed prazosin 1 mg oral capsule 2 mg, 2, capsule, By Mouth, Daily at bedtime, Refills 0, Maintenance, 07/14/21 11:04:00 EDT, Partial fill upon patient request if the prescription is for a schedule II opioid drug. Start Date: 07/14/21 Status: Ordered prazosin 5 mg oral capsule 5 mg, Capsule, By Mouth, 07/13/21 21:00:00 EDT Start Date: 07/13/21 Stop Date: 07/13/21 Status: Completed prazosin 5 mg oral capsule [...] Severe obesity(Confirmed) Active Tobacco dependence(Confirmed) Active Results Orders for Microbiology Reports Name Date Blood Culture 07/01/21 Blood Culture #2 07/01/21 Microbiology Reports TEST:Blood Culture STATUS:Auth (Verified) BODY SITE: SOURCE:Blood COLLECTED DATE/TIME:07/01/21 12:51 PM Blood Culture SPECIMEN DESCRIPTION : BLOOD RH SPECIAL REQUESTS : NONE Test performed at [facility], [address] [place] [address], Anupama Barragan MD, Med Director, MEHUL [id number] CULTURE : NO GROWTH 5 DAYS. REPORT STATUS : FINAL 07/06/2021 TEST:Blood Culture, Second Order STATUS:Auth (Verified) BODY SITE: SOURCE:Blood COLLECTED DATE/TIME:07/01/21 12:51 PM Blood Culture, Second Order SPECIMEN DESCRIPTION : BLOOD LH SPECIAL REQUESTS : NONE Test performed at [facility], [address] [place] [address], Anupama Barragan MD, Med Director, MEHUL [id number] CULTURE : NO GROWTH 5 DAYS. REPORT STATUS : FINAL 07/06/2021 Vital Signs Most recent to oldest [Reference Range]: 1 2 3 Height 167 cm (07/13/21 9:18 PM) 167 cm (07/13/21 9:15 AM) 167 cm (07/12/21 5:38 PM) Weight 141 kg (07/03/21 1:34 PM) 137 kg (07/03/21 7:43 AM) 137 kg (07/02/21 9:56 AM) Oxygen Saturation [94-100 %] 98 % (07/13/21 9:18 PM) 99 % (07/13/21 9:15 AM) 99 % (07/12/21 5:38 PM) Pulse Rate [55-90 bpm] 96 bpm *H* (07/13/21 9:18 PM) 98 bpm *H* (07/13/21 9:15 AM) 84 bpm (07/12/21 5:38 PM) Body Mass Index [18.5-24.99] 50.56 *>HHI* (07/03/21 1:34 PM) 49.12 *>HHI* (07/03/21 7:43 AM) 49.12 *>HHI* (07/02/21 9:56 AM) Blood Pressure [90-138/55-84 mm Hg] 130/73mm Hg (07/13/21 9:18 PM) 130/73mm Hg (07/13/21 8:41 PM) 130/73mm Hg (07/13/21 8:41 PM) Respiratory Rate [16-30 br/min] 16 br/min (07/14/21 9:21 AM) 16 br/min (07/14/21 9:20 AM) 16 br/min (07/14/21 8:22 AM) Temperature [96.8-100.4 DegF] 97.5 DegF (07/13/21 9:18 PM) 97.7 DegF (07/13/21 9:15 AM) 96.6 DegF *L* (07/12/21 5:38 PM) Mode of Delivery (Oxygen) Room air (07/13/21 9:15 AM) Room air (07/12/21 8:26 AM) Room air (07/11/21 8:22 PM) Blood pressure sites Arm, left (07/13/21 9:18 PM) Arm, right (07/13/21 9:15 AM) Arm, left (07/12/21 5:38 PM) Temperature Route Temporal (07/13/21 9:18 PM) Temporal (07/13/21 9:15 AM) Temporal (07/12/21 5:38 PM) Dry Weight 141 kg (07/03/21 1:34 PM) 137 kg (07/03/21 7:43 AM) 137 kg (07/02/21 9:56 AM) Weight Obtained Via stated (07/03/21 1:34 PM) Social History Social History Type Response Smoking Status 10 or more cigarette s (1/2 pack or more)/day in last 30 days entered on: 12/11/20 Sex
--- OUTSIDE RECORDS SUMMARY | 2023-06-07 19:11 | XMS_ITS | Continuity of Care Document ---
Author Organization [facility] Address Unknown Care Team Providers Care Wrinkle Chaser Name Role Phone Mirelaritchie RILEY, Narda Fonseca Primary Care Physici an Encounter [facility] [id number] Date(s): 06/22/21 - 07/22/21 [facility] Attending Physician: Moreno Araiza Admitting Physician: AdmtrMoreno Referring Physician: AdmtrMoreno Allergies, Adverse Reactions, Alerts Substance Reaction Severity Status Thorazine Skin rash Active Trileptal Active Geodon full body tremors Active Immunizations Given and Recorded Vaccine Date Status Refusal Reason SARS-CoV-2 (COVID-19) mRNA-1273 vaccine 01/25/21 R ecorded influenza virus vaccine, inactivated 11/11/20 Give n SARS-CoV-2 (COVID-19) mRNA BNT-162b2 vac 04/13/20 Recorded SARS-CoV-2 (COVID-19) mRNA BNT-162b2 vac 03/02/20 Recorded tetanus/diphtheria/pertussis, acel(Tdap) 12/22/19 Given Medications docusate sodium 100 mg oral capsule 1 [...] 07/14/21 11:03:00 EDT, Route to Pharmacy Electronically, [facility]-[id number], Partialfill upon patient request if the prescription is fo... Start Date: 07/14/21 Status: Ordered hydrOXYzine hydrochloride 25 mg oral tablet 1 [...] opioid drug. Start Date: 07/14/21 Status: Ordered LORazepam 1 mg oral tablet 1 tablet = 1 mg, By Mouth, 2 times a day, PRN as needed for anxiety, 0 Refills, Maintenance, 07/19/21 20:15:00 EDT, Tablet, Partial fill upon patient request if the prescription is for a schedule II opioid drug. Start Date: 07/19/21 Status: Ordered Mapap = 650 mg, By Mouth, Every 6 hours, PRN Pain , Moderate, 0 Refills, Maintenance, 07/19/21 20:18:00 EDT, Partial fill upon patient request if the prescription is for a schedule II opioid drug. Start Date: 07/19/21 Status: Ordered ondansetron 4 mg oral tablet, [...]
--- OUTSIDE RECORDS SUMMARY | 2023-06-07 19:11 | XMS_ITS | Continuity of Care Document ---
Author Organization [facility] Address [address] [place] [address]- Care Team Providers Care Software Test Engineer Name Role Phone Katie RILEY, Narda Marian Primary Care Physici an Encounter [facility] [place] Date(s): 09/16/21 - 09/19/[address] [address]- Discharge Disposition: A-D/C Home Attending Physician: Parminder [...] 0 Refills, Maintenance, 09/15/21 12:18:00 EDT, Tablet, [facility]-[id number], Partial fill upon patient request if the [...] oral capsule 600 mg, Capsule, By Mouth, 09/19/21 9:00:00 EDT Start Date: 09/19/21 Stop Date: 09/19/21 Status: Completed gabapentin 300 mg oral capsule 300 mg, 1, capsule, By Mouth, 2 times a day, # 60 capsule, Refills 0, Tot. Refills 0, Maintenance, 09/15/21 12:16:00 EDT, Route to Pharmacy Electronically, [facility], Partialfill upon patient request if the prescription is fo... Start Date: 09/15/21 Status: Ordered gabapentin 300 mg oral capsule 600 mg, 2, capsule, By Mouth, Daily in AM, # 60 capsule, Refills 0, Tot. Refills 0, Maintenance, 09/15/21 12:17:00 EDT, [facility], Partial fill upon patient request if the prescription is for... Start Date: 09/15/21 Status: Ordered gabapentin 300 mg oral capsule 300 mg, Capsule, By Mouth, 09/18/21 21:00:00 EDT Start Date: 09/18/21 Stop Date: 09/18/21 Status: Completed hydrOXYzine hydrochloride 25 mg oral [...] 0 Refills, Maintenance, 09/15/21 12:17:00 EDT, Capsule, [facility]-[id number], Partial fill upon patient request if the prescription is for a schedule II opioid drug., 168, cm, 08... Start Date: 09/15/21 Status: Ordered metFORMIN 500 mg oral tablet 1 each = 500 mg, By Mouth, 2 times a day, # 60 tablet, 0 Refills, Maintenance, 09/15/21 12:18:00 EDT, Tablet, [facility]-[id number], Partial fill upon patient request if the [...] Maintenance,09/15/21 12:18:00 EDT, Route to Pharmacy Electronically, [facility]-[id number], Partial fill upon patient request if the prescription is f... Start Date: 09/15/21 Status: Ordered prazosin 1 mg oral capsule 2 mg, Capsule, By Mouth, 09/18/21 21:00:00 EDT Start Date: 09/18/21 Stop Date: 09/18/21 Status: Completed prazosin 5 mg oral capsule 5 mg, 1, capsule, By Mouth, Daily at bedtime, # 30 capsule, Refills 0, Tot. Refills 0, Maintenance,09/15/21 12:18:00 EDT, Route to Pharmacy Electronically, [facility], Partial fill upon patient request if the prescription is f... Start Date: 09/15/21 Status: Ordered prazosin 5 mg oral capsule 5 mg, Capsule, By Mouth, 09/18/21 21:00:00 EDT Start Date: 09/18/21 Stop Date: 09/18/21 Status: Completed PROzac 20 mg oral capsule 40 mg, 2, capsule, By Mouth, Daily, # 60 capsule, Refills 0, Tot. Refills 0, Maintenance, 09/15/21 12:16:00 EDT, Route to Pharmacy Electronically, [facility]-[address], Partial fill upon patient request if the prescription is for a sched... Start Date: 09/15/21 Status: Ordered Problem List Condition Effective Dates Status Health Status Inform ant Depression(Confirmed) Active Major depressive disorder, recurrent(Confirmed) Active Severe obesity(Confirmed) Active Tobacco dependence(Confirmed) Active Vital Signs Most recent to oldest [Reference Range]: 1 2 3 Height 168 cm (09/19/21 8:20 AM) 168 cm (09/18/21 2:52 PM) 168 cm (09/18/21 4:44 AM) Weight 142 kg (09/18/21 2:52 PM) 142 kg (09/18/21 4:44 AM) 142 kg (09/17/21 4:48 PM) Oxygen Saturation [94-100 %] 98 % (09/19/21 8:20 AM) 98 % (09/18/21 9:00 PM) 95 % (09/18/21 2:52 PM) Pulse Rate [55-90 bpm] 77 bpm (09/19/21 8:20 AM) 69 bpm (09/18/21 9:00 PM) 82 bpm (09/18/21 2:52 PM) Body Mass Index [18.5-24.99] 50.31 *>HHI* (09/18/21 2:52 PM) 50.31 *>HHI* (09/18/21 4:44 AM) 50.31 *>HHI* (09/17/21 4:48 PM) Blood Pressure [90-138/55-84 mm Hg] 122/79mm Hg (09/19/21 8:20 AM) 137/83mm Hg (09/18/21 10:07 PM) 137/84mm Hg (09/18/21 9:27 PM) Respiratory Rate [16-30 br/min] 16 br/min (09/19/21 8:20 AM) 18 br/min (09/19/21 8:05 AM) 16 br/min (09/18/21 9:27 PM) Temperature [96.8-100.4 DegF] 97.1 DegF (09/19/21 8:20 AM) 97.8 DegF (09/18/21 9:00 PM) 98.5 DegF (09/18/21 2:52 PM) Mode of Delivery (Oxygen) Room air (09/18/21 9:00 PM) Room air (09/18/21 2:52 PM) room air (09/18/21 4:44 AM) Blood pressure sites Arm, right (09/19/21 8:20 AM) Arm, left (09/18/21 2:52 PM) Arm, left (09/16/21 9:39 PM) Temperature Route Temporal (09/19/21 8:20 AM) Temporal (09/18/21 9:00 PM) Temporal (09/18/21 2:52 PM) Dry Weight 142 kg (09/18/21 2:52 PM) 142 kg (09/18/21 4:44 AM) 142 kg (09/17/21 4:48 PM) Social History Social History Type Response Smoking Status 10 or more cigarette s (1/2 pack or more)/day in last 30 days entered on: 12/11/20 Sex
--- OUTSIDE RECORDS SUMMARY | 2023-06-07 19:11 | XMS_ITS | Continuity of Care Document ---
Author Organization [facility] Address [address] [place] [id number]- Care Team Providers Care Dope Weigh Operator Name Role Phone Yovanny RILEY, Nikki Primary Care Physician Encounter [facility] Date(s): 04/27/23 - 04/28/[address] [address]- Encounter Diagnosis Suicidal ideation(Final) - 04/27/23 Discharge Disposition: A-D/C Home Attending Physician: Mario [...] 0 Refills, Maintenance, 04/03/23 8:17:00 EST, Tablet, [facility], [place], operated [facility]-[id number], Partial fill upon patient request if the prescription is for a schedule II opioid drug., 167, cm, 04/02/23 20:... Start Date: 2/20/24 Status: Ordered duloxetine 60 mg oral enteric coated capsule = 60 mg, By Mouth, Daily, # 30 capsule, 0 Refills, Maintenance, 04/03/23 8:17:00 EST, Capsule, [facility], [place], operated by [facility]-[id number], Partial fill upon patient request if the prescription is for a schedule II opioid drug., 167, cm, 04/02/23 20:16:00 EST,... Start Date: 04/03/23 Status: Ordered haloperidol 5 mg oral tablet 5 mg, By Mouth, Daily, # 30 tablet, Refills 0, Tot. Refills 0, Maintenance, 04/03/23 8:19:00 EST, [facility] [id number], Partial fill upon patient request if the prescription is for a schedule II opioid d... Start Date: 04/03/23 Status: Ordered haloperidol 5 mg oral tablet 5 mg, By Mouth, 2 times a day, PRN, # 60 tablet, Refills 0, Tot. Refills 0, Maintenance, Anxiety, 04/03/23 8:20:00 EST, [facility] [place], Partial fill upon patient request if the [...] Refills, Maintenance, 04/03/23 8:17:00 EST, ER Tablet, [facility], [place], [facility]-[id number], Partial fill upon patient request if the [...] 04/03/23 8:18:00 EST, [facility] [place], Partial fill upon patient request if the prescription is for a schedule... Start Date: 04/03/23 Status: Ordered prazosin 1 mg oral capsule 1 mg, Capsule, By Mouth, 04/27/23 21:00:00 EDT Start Date: 04/27/23 Stop Date: 04/27/23 Status: Completed topiramate 50 mg oral tablet = 150 mg, By Mouth, Daily at bedtime, # 90 tablet, 0 Refills, Maintenance, 04/03/23 8:18:00 EST, Tablet, [facility] [place], Partial fill upon patient request if the prescription is for a schedule II opioid drug., 167, cm, 04/02/23 20:... Start Date: 04/03/23 Status: Ordered traZODone 50 mg oral tablet 50 mg, By Mouth, Daily at bedtime, PRN, # 30 tablet, Refills 0, Tot. Refills 0, Maintenance, Sleep,04/03/23 8:19:00 EST, Route to Pharmacy Electronically, [facility] [place]-[address], Partialfill upon patient request if the prescription [...] Range]: 1 2 3 Height 168 cm (04/28/23 10:07 AM) 168 cm (04/27/23 7:08 PM) 168 cm (04/27/23 6:19 PM) Weight 145 kg (04/27/23 7:08 PM) 145 kg (04/27/23 6:19 PM) Oxygen Saturation [94-100 %] 98 % (04/28/23 2:17 PM) 97 % (04/28/23 10:07 AM) 98 % (04/27/23 10:44 PM) Pulse Rate [55-90 bpm] 99 bpm *H* (04/28/23 2:17 PM) 84 bpm (04/28/23 10:07 AM) 78 bpm (04/27/23 10:44 PM) Body Mass Index [18.5-24.99 kg/m2] 51.37 kg/m2 *>HHI* (04/27/23 7:08 PM) Blood Pressure [90-138/55-84 mm Hg] 145/75mm Hg *H* (04/28/23 2:17 PM) 111/63mm Hg (04/28/23 10:07 AM) 115/69mm Hg (04/27/23 10:48 PM) Respiratory Rate [16-30 br/min] 18 br/min (04/28/23 2:17 PM) 18 br/min (04/28/23 10:07 AM) 17 br/min (04/28/23 1:49 AM) Temperature [96.8-100.4 DegF] 97.8 DegF (04/28/23 10:07 AM) 97.5 DegF (04/27/23 10:44 PM) 97.3 DegF (04/27/23 7:08 PM) Liters per Minute 0 L/min (04/28/23 10:07 AM) Mode of Delivery (Oxygen) Room air (04/28/23 2:17 PM) Room air (04/28/23 10:07 AM) Room air (04/27/23 10:44 PM) Blood pressure sites Arm, left (04/28/23 2:17 PM) Arm, left (04/28/23 10:07 AM) Arm, left (04/27/23 10:44 PM) Temperature Route Oral (04/28/23 10:07 AM) Oral (04/27/23 10:44 PM) Temporal (04/27/23 7:08 PM) Dry Weight 145 kg (04/27/23 7:08 PM) 145 kg (04/27/23 6:19 PM) Social History Social History Type Response Smoking Status 10 or more cigarette s (1/2 pack or more)/day in last 30 days entered on: 09/07/18 Sex Patient Care team information Care Team Personnel Name: Garcia Baez RN Position: [facility] RN Member Role: Primary Care Nurse Name: Diamond Mancini RN Position: [facility] SN RN Member Role: Primary Care Nurse Name: Leah Almonte RN Position: [facility] RN Member Role: Primary Care Nurse Name: Natasha Dickey RN Position: [facility] RN Member Role: Primary Care Nurse Name: Kellee Garvin RN Position: [facility] RN Member Role: Primary Care Nurse Name: Maegan Diaz RN Position: [facility] RN Member Role: Primary Care Nurse Name: Genesis Lea RN Position: [facility] RN Member Role: Primary Care Nurse Name: Nikki Hairston NP Position: [facility] PCO Associate Professional Member Role: PCP Address: Address: [address] [place] [address] Name: Alejandra Gilbert RN Position: [facility] RN Member Role: Primary Care Nurse Name: Zara Colon RN Position: [facility] RN Supv Member Role: Primary Care [...] Care Nurse Name: Ligia Stapleton RN Position: [facility] RN Member Role: Primary Care Nurse Name: Melissa Davison RN Position: [facility] RN Member Role: Primary Care Nurse Name: Trinidad Ordonez RN Position: [facility] RN Member Role: Primary Care Nurse Name: Mariaelena Collazo RN Position: S RN Member Role: Primary Care Nurse Name: Beatrice Pisano RN Position: [facility] RN Member [...] Nurse Care Team Related Persons Name: ASSISTED GRANITE SANDBLASTER APPRENTICEYENI Address: [address] [address] Name: YULIYA MORA Address: home [address] [place] [address] Name: SUNDAY MORA Address: [place] [address]
--- OUTSIDE RECORDS SUMMARY | 2023-06-07 19:11 | XMS_ITS | Continuity of Care Document ---
Author Organization [facility] Address [address] [place] [address]- Care Team Providers Care Lawn Maintenance Worker Name Role Phone Bela Dumont MD Primary Care Physician Encounter [facility] Date(s): 03/10/19 - 03/13/19 [facility] [address] [place] [address]- [facility] Discharge Disposition: A-D/C Home Attending Physician: Luis Kumar MD Admitting Physician: Luis Kumar MD Referring Physician: Not on Staff, Referring MD Allergies, Adverse Reactions, Alerts Substance Reaction Severity Status NKA Active Medications chlorproMAZINE 100 mg oral tablet 1 tablet = 100 mg, By Mouth, 3 times a day, # 90 tablet, 1 Refills, Maintenance, 03/12/19 16:52:00 EST, Tablet, [facility], 168, cm, 03/12/19 8:33:00 EST, Height, 109.5, kg, 03/10/19 13:44:00 EST, Dry Weight Start Date: 03/12/19 Status: Ordered escitalopram 20 mg oral tablet 1 tablet = 20 mg, By Mouth, Daily, # 30 tablet, 1 Refills, Maintenance, 03/12/19 16:52:00 EST, Tablet, [facility], 168, cm, 03/12/19 8:33:00 EST, Height, 109.5, kg, 03/10/19 13:44:00 EST, Dry Weight Start Date: 03/12/19 Status: Ordered lamotrigine 200 mg oral tablet 1 tablet = 200 mg, By Mouth, Daily at bedtime, # 30 tablet, 1 Refills, Maintenance, 03/12/19 16:53:00 EST, [facility], 168, cm, 03/12/19 8:33:00 EST, Height, 109.5, kg, 03/10/19 13:44:00 EST, Dry Weight Start Date: 03/12/19 Stop Date: 05/11/19 Status: Ordered mirtazapine 15 mg oral tablet 0.5 tablet = 7.5 mg, By Mouth, Daily at bedtime, # 15 tablet, 1 Refills, Maintenance, 03/12/19 16:50:00 EST, Tablet, [facility], 168, cm, 03/12/19 8:33:00 EST, Height, 109.5, kg, 03/10/19 13:44:00 EST, Dry Weight Start Date: 03/12/19 Status: Ordered topiramate 100 mg oral tablet 1 tablet = 100 mg, By Mouth, Daily at bedtime, # 30 tablet, 1 Refills, Maintenance, 03/12/19 16:50:00 EST, Tablet, [facility], 168, cm, 03/12/19 8:33:00 EST, Height, 109.5, kg, 03/10/19 13:44:00 EST, Dry Weight Start Date: 03/12/19 Status: Ordered traZODone 50 mg oral tablet 50 mg, 1, tablet, By Mouth, Daily at bedtime, PRN, # 30 tablet, Refills 1, Tot. Refills 1, Maintenance, Sleep, 03/12/19 16:51:00 EST, Route to Pharmacy Electronically, [facility], 168, cm, 03/12/19 8:33:00 EST, Height, 109.5, kg, 01... Start Date: 03/12/19 Status: Ordered Problem List Condition Effective Dates Status Health Status Inform ant Depression(Confirmed) Active Tobacco dependence(Confirmed) Active Vital Signs Most recent to oldest [Reference Range]: 1 2 3 Height 168 cm (03/13/19 8:28 AM) 168 cm (03/12/19 4:45 PM) 168 cm (03/12/19 8:33 AM) Weight 109.5 kg (03/10/19 1:44 PM) 109.5 kg (03/10/19 8:37 AM) 109.5 kg (03/09/19 9:52 PM) Oxygen Saturation [94-100 %] 98 % (03/13/19 8:28 AM) 100 % (03/12/19 4:45 PM) 99 % (03/12/19 8:33 AM) Pulse Rate [55-90 bpm] 100 bpm *H* (03/13/19 8:28 AM) 80 bpm (03/12/19 4:45 PM) 85 bpm (03/12/19 8:33 AM) Body Mass Index [18.5-24.99] 38.8 *>HHI* (03/10/19 1:44 PM) 38.8 *>HHI* (03/10/19 8:37 AM) 38.8 *>HHI* (03/09/19 9:52 PM) Blood Pressure [90-138/55-84 mm Hg] 127/72mm Hg (03/13/19 8:28 AM) 127/66mm Hg (03/12/19 4:45 PM) 123/72mm Hg (03/12/19 8:33 AM) Respiratory Rate [16-30 br/min] 18 br/min (03/13/19 8:28 AM) 18 br/min (03/13/19 8:28 AM) 20 br/min (03/12/19 6:37 PM) Temperature [96.8-100.4 DegF] 98.1 DegF (03/13/19 8:28 AM) 97.7 DegF (03/12/19 4:45 PM) 97.4 DegF (03/12/19 8:33 AM) Mode of Delivery (Oxygen) Room air (03/13/19 8:28 AM) Room air (03/12/19 4:45 PM) Room air (03/11/19 4:00 PM) Blood pressure sites Arm, right (03/13/19 8:28 AM) Arm, right (03/12/19 4:45 PM) Arm, right (03/11/19 4:00 PM) Temperature Route Oral (03/13/19 8:28 AM) Oral (03/12/19 4:45 PM) Oral (03/11/19 4:00 PM) Dry Weight 109.5 kg (03/10/19 1:44 PM) 109.5 kg (03/10/19 8:37 AM) 109.5 kg (03/09/19 9:52 PM) Sensory deficits None (03/10/19 1:44 PM) Mobility assistance Independent (03/10/19 1:44 PM) Social History Social History Type Response Smoking Status 10 or more cigarette s (1/2 pack or more)/day in last 30 days entered on: 09/07/18 Sex
--- OUTSIDE RECORDS SUMMARY | 2023-06-07 19:11 | XMS_ITS | Continuity of Care Document ---
Author Organization [facility] Address [address] [place] [address]- Care Team Providers Care Line Installation Supervisor Name Role Phone Katie RILEY, Narda Marian Primary Care Physici an [place] [facility] [place] 11/17/21 - 11/17/[address] [address]- Discharge Disposition: A-D/C Home Attending Physician: Darlene ESTES, Mario Alberto Ortiz Admitting Physician: Darlene ESTES, Mario Alberto Ortiz Referring Physician: Not on Staff, Referring MD [...] (COVID-19) mRNA BNT-162b2 vac 03/02/20 Recorded Medications albuterol CFC free 90 mcg/inh inhalation aerosol 180 mcg, 2, puffs, By Mouth, Every 4 hours, PRN, # 8 Gm, Refills 0, Tot. Refills 0, Maintenance, 11/15/21 11:59:00 EDT, Inhaler, Route to Pharmacy Electronically, [id number], [facility]-[id number], 168, cm, 11/15/21 11:24:00 EDT, He... Start Date: 11/15/21 Status: Ordered ARIPiprazole 10 mg oral tablet 20 mg, 2, tablet, By Mouth, Daily, # 60 tablet, Refills 0, Tot. Refills 0, Maintenance, 11/15/21 10:18:00 EDT, Route to Pharmacy Electronically, [facility] [place], Partial fill upon patient request if the prescription is for a schedul... Start Date: 11/15/21 Status: Ordered gabapentin 300 mg oral capsule 300 mg, By Mouth, 2 times a day, Afternoon and HS, # 60 capsule, Refills 0, Tot. Refills 0, Maintenance, 11/15/21 10:12:00 EDT, [facility] to [facility], Partial fill upon patient request if the prescription... Start Date: 11/15/21 Status: Ordered gabapentin 300 mg oral capsule 600 mg, By Mouth, Daily in AM, # 60 capsule, Refills 0, Tot. Refills 0, Maintenance, 11/15/21 10:12:00 EDT, Route to Pharmacy Electronically, [id number], Partial fill upon patient request if the prescription is for a schedule I... Start Date: 11/15/21 Status: Ordered haloperidol 5 mg oral tablet 5 mg, 1, tablet, By Mouth, Every 8 hours, PRN, # 90 tablet, Refills 0, Tot. Refills 0, Maintenance,Agitation, 11/15/21 10:12:00 EDT, Route to Pharm[facility] Electronically, [facility], Partial fill upon patient request if the prescr... Start Date: 11/15/21 Status: Ordered lithium 600 mg oral capsule = 600 mg, By Mouth, 2 times a day, # 60 capsule, 0 Refills, Maintenance, 11/15/21 10:12:00 EDT, [facility] [place], Partial fill upon patient request if the prescription is for a schedule II opioid drug., 168, cm, 11/14/21 21:... Start Date: 11/15/21 Status: Ordered metFORMIN 500 mg oral tablet 1 each = 500 mg, By Mouth, 2 times a day, # 60 tablet, 0 Refills, Maintenance, 11/15/21 10:12:00 EDT, Tablet, [facility]-[address], Partial fill upon patient request if the prescriptionis for a schedule II opioid drug., 168, cm, 2... Start Date: 11/15/21 Status: Ordered prazosin 2 mg oral capsule 1 capsule = 2 mg, By Mouth, Daily at bedtime, # 30 capsule, 0 Refills, Maintenance, 11/15/21 10:12:00 EDT, Capsule, [facility]-[address], Partial fill upon patient request if the prescription is for a schedule II opioid drug., 168, cm, 1... Start Date: 11/15/21 Status: Ordered PROzac 20 mg oral capsule 40 mg, 2, capsule, By Mouth, Daily, # 60 capsule, Refills 0, Tot. Refills 0, Maintenance, 11/15/21 10:12:00 EDT, Route to Pharmacy Electronically, [facility]-[address], Partial fill upon patient request if the [...] oldest [Reference Range]: 1 Height 168 cm (11/17/21 8:21 PM) Weight 142.6 kg (11/17/21 8:21 PM) Oxygen Saturation [94-100 %] 98 % (11/17/21 8: PM) Pulse Rate [55-90 bpm] 110 bpm *H* (11/17/21 8:21 PM) Blood Pressure [90-138/55-84 mm Hg] 147/ 80mm Hg *H* (11/17/21 8:21 PM) Respiratory Rate [16-30 br/min] 16 br/mi n (11/17/21 8:21 PM) Temperature [96.8-100.4 DegF] 97.6 DegF (11/17/21 8:21 PM) Dry Weight 142.6 kg (10/6/22 8:21 PM) Social History Social History Type Response Smoking Status 10 or more cigarette s (1/2 pack or more)/day in last 30 days entered on: 12/11/20 Sex Patient Care team information Personnel Name: Narda Wilson NP Address: Address: [address] [place] [id number]
--- OUTSIDE RECORDS SUMMARY | 2023-06-07 19:11 | XMS_ITS | Continuity of Care Document ---
Author Organization [facility] Address [address] [place] [address]- Care Team Providers Care Aircraft Sheet Metal Mechanic Name Role Phone Bela Dumont MD Primary Care Physician [phone] Encounter [facility] Date(s): 02/14/20 - 02/15/[address] [address]- Discharge Disposition: A-D/C Home Attending Physician: Misty [...] Maintenance,04/30/19 13:49:00 EDT, Route to Pharmacy Electronically, [facility]/pharmacy #[id number], 175, cm, 04/30/19 12:12:00 EDT, Height, [...] Range]: 1 2 3 Height 168 cm (02/15/20 6:02 AM) 168 cm (02/14/20 11:24 PM) Weight 129.8 kg (02/15/20 6:02 AM) 129.8 kg (02/14/20 11:24 PM) Oxygen Saturation [94-100 %] 96 % (02/15/20 6:02 AM) 99 % (02/14/20 11:24 PM) Pulse Rate [55-90 bpm] 98 bpm *H* (02/15/20 6:02 AM) 118 bpm *H* (02/15/20 12:00 AM) 140 bpm *H* (02/14/20 11:24 PM) Body Mass Index [18.5-24.99] 45.99 *>HHI* (02/15/20 6:02 AM) Blood Pressure [90-138/55-84 mm Hg] 117/71mm Hg (02/15/20 6:02 AM) 101/63mm Hg (02/14/20 11:24 PM) Respiratory Rate [16-30 br/min] 16 br/min (02/15/20 6:02 AM) 17 br/min (02/14/20 11:24 PM) Temperature [96.8-100.4 DegF] 97.5 DegF (02/15/20 6:02 AM) 97.1 DegF (02/14/20 11:24 PM) Mode of Delivery (Oxygen) Room air (02/15/20 6:02 AM) Room air (02/14/20 11:24 PM) Blood pressure sites Arm, right (02/15/20 6:02 AM) Arm, right (02/14/20 11:24 PM) Temperature Route Oral (02/15/20 6:02 AM) Oral (02/14/20 11:24 PM) Dry Weight 129.8 kg (02/15/20 6:02 AM) 129.8 kg (02/14/20 11:24 PM) Social History Social History Type Response Smoking Status 10 or more cigarette s (1/2 pack or more)/day in last 30 days entered on: 09/07/18 Sex
--- OUTSIDE RECORDS SUMMARY | 2023-06-07 19:11 | XMS_ITS | Continuity of Care Document ---
Author Organization [facility] Address [address] [place] [address]- Care Team Providers Care Enforcement Safety Officer Name Role Phone Katie RILEY, Narda Fonseca Primary Care Physici an Encounter [facility] [place] Date(s): 07/22/20 - 07/22/[address] [address]- Encounter Diagnosis Acute bilateral low back pain with sciatica(Final) - 07/22/20 Discharge Disposition: A-D/C Home Attending Physician: Carter [...] 0 Refills, Maintenance, 07/22/20 17:31:00 EDT, Tablet, [facility]-, Partial fill upon patient request if the prescription is for a schedule II opioid drug., 168, cm, ... Start Date: 07/22/20 Status: Ordered ibuprofen 600 mg oral tablet 600 mg, 1, tablet, By Mouth, 4 times a day, PRN, # 30 tablet, Refills 0, Tot. Refills 0, Maintenance, for pain, 07/22/20 17:32:00 EDT, Route to Pharmacy Electronically, [facility]-, Partial fill upon patient request if [...] Refills, Maintenance, 04/22/20 14:44:00 EST, Capsule, [facility]-, Partial fill upon patient request if the prescription is for a schedule... Start Date: 04/22/20 Stop Date: 05/22/20 Status: Ordered prazosin 5 mg oral capsule 5 mg, 1, capsule, By Mouth, Daily at bedtime, # 30 capsule, Refills 0, Tot. Refills 0, Maintenance,04/22/20 14:44:00 EST, Route to Pharmacy Electronically, [facility]-, Partial fill upon patient request if [...] opioid drug. Start Date: 06/13/20 Status: Ordered Tylenol 325 mg oral tablet 975 mg, Tablet, By Mouth, Once, Routine, 07/22/20 17:00:00 EDT, Stop date 07/22/20 17:00:00 EDT Start Date: 07/22/20 Stop Date: 07/22/20 Status: Completed Venlafaxine = 150 mg, By Mouth, 0 Refills, Maintenance, 07/22/20 14:36:00 EDT, Partial fill upon patient request if [...] Exam Date Time Procedure Performing Provider Status 07/22/20 5:10 PM Lumbar Spine 2 or 3 Views Olegario Garcia; Mattie (Verified) Notes: (Lumbar Spine 2 or 3 Views) Reason For Exam: Pain RESULT: Lumbar Spine 2 or 3 Views Lumbar Spine 2 or 3 Views INDICATION: Hx of Present Illness: lower back px that radiates down both legs x2 mos, pt report burning sensation. pt denies numbness tingling. pt denies loss of bowel or bladder funciton.; Reason: Pain; Clinical Question(s): Disc Disease COMPARISON: None. FINDINGS: Unremarkable soft tissue. There is no fracture or dislocation. Joint space is maintained. Status post cholecystectomy. IMPRESSION: Within normal limits. WSN: [id number] Ordering Physician: Virgil Marquez Dictated By: Page Lopez MD Dictated Date/Time: 07/22/20 5:23 pm Reviewed By: Page Lopez MD Signed By: Page Lopez MD Signed Date/Time: 07/22/20 5:23 pm Transcribed By: DEJON Transcribed Date/Time: 07/22/20 5:22 pm Vital Signs Most recent to oldest [Reference Range]: 1 2 Height 168 cm (07/22/20 2:31 PM) Weight 137.5 kg (07/22/20 2:31 PM) Oxygen Saturation [94-100 %] 98 % (07/22/20 2:31 PM) Pulse Rate [55-90 bpm] 125 bpm *H* (07/22/20 2:31 PM) Respiratory Rate [16-30 br/min] 18 br/mi n (07/22/20 6:27 PM) 18 br/min (07/22/20 2:31 PM) Mode of Delivery (Oxygen) Room air (07/22/20 2:31 PM) Temperature Route Oral (07/22/20 2:31 PM) Dry Weight 137.5 kg (07/22/20 2:31 PM) Weight Obtained Via Patient/family state d (07/22/20 2:31 PM) Social History Social History Type Response Smoking Status 10 or more cigarette s (1/2 pack or more)/day in last 30 days entered on: 09/07/18 Sex
--- OUTSIDE RECORDS SUMMARY | 2023-06-07 19:11 | XMS_ITS | Continuity of Care Document ---
Author Organization [facility] Address [address] [place] [address]- Care Team Providers Care Pop Singer Name Role Phone Bela Dumont MD Primary Care Physician [phone] Encounter [facility] [place] Date(s): 03/10/20 - 03/13/[address] [address]- Discharge Disposition: Transfer to [facility] Facility Attending Physician: Martin Villatoro MD [...] oral capsule 5 mg, Capsule, By Mouth, 03/12/20 21:00:00 EST Start Date: 03/12/20 Stop Date: 03/12/20 Status: Completed prazosin 5 mg oral capsule 5 mg, 1, capsule, By Mouth, Daily at bedtime, Refills 0, Maintenance, 11/22/19 11:21:00 EDT Start Date: 11/22/19 Status: Ordered traZODone 100 mg oral tablet 100 mg, 1, tablet, By Mouth, Daily at bedtime, # 30 tablet, Refills 0, Tot. Refills 0, Maintenance,04/30/19 13:49:00 EDT, Route to Pharmacy Electronically, [facility]/pharmacy #[id number], 175, cm, 04/30/19 12:12:00 EDT, [...] oldest [Reference Range]: 1 2 3 Height 178 cm (03/13/20 10:03 AM) 178 cm (03/13/20 8:15 AM) 178 cm (03/12/20 7:43 AM) Weight 114 kg (03/13/20 10:03 AM) 114 kg (03/13/20 8:15 AM) 114 kg (03/12/20 7:43 AM) Oxygen Saturation [94-100 %] 98 % (03/13/20 8:15 AM) 98 % (03/13/20 12:07 AM) 98 % (03/12/20 11:19 PM) Pulse Rate [55-90 bpm] 109 bpm *H* (03/13/20 8:15 AM) 95 bpm *H* (03/13/20 12:07 AM) 99 bpm *H* (03/12/20 11:19 PM) Body Mass Index [18.5-24.99] 35.98 *>HHI* (03/13/20 8:15 AM) 35.98 *>HHI* (03/12/20 7:43 AM) 35.98 *>HHI* (03/11/20 10:43 PM) Blood Pressure [90-138/55-84 mm Hg] 136/80mm Hg (03/13/20 8:15 AM) 148/82mm Hg *H* (03/12/20 11:19 PM) 108/68mm Hg (03/12/20 2:53 PM) Respiratory Rate [16-30 br/min] 20 br/min (03/13/20 12:07 AM) 16 br/min (03/12/20 11:19 PM) 16 br/min (03/12/20 6:00 PM) Temperature [96.8-100.4 DegF] 98.1 DegF (03/13/20 8:15 AM) 97.8 DegF (03/13/20 12:07 AM) 97.9 DegF (03/12/20 11:19 PM) Mode of Delivery (Oxygen) Room air (03/13/20 8:15 AM) Room air (03/12/20 11:19 PM) Room air (03/12/20 2:53 PM) Blood pressure sites Arm, right (03/13/20 8:15 AM) Arm, left (03/12/20 6:37 AM) Arm, left (03/11/20 10:43 PM) Temperature Route Oral (03/13/20 8:15 AM) Oral (03/13/20 12:07 AM) Oral (03/12/20 11:19 PM) Dry Weight 114 kg (03/13/20 10:03 AM) 114 kg (03/13/20 8:15 AM) 114 kg (03/12/20 7:43 AM) Social History Social History Type Response Smoking Status 10 or more cigarette s (1/2 pack or more)/day in last 30 days entered on: 09/07/18 Sex
--- OUTSIDE RECORDS SUMMARY | 2023-06-07 19:11 | XMS_ITS | Continuity of Care Document ---
Author Organization [facility] Address [address] [place] [address]- Care Team Providers Care Health And Safety Inspector Name Role Phone Katie RILEY, Narda Fonseca Primary Care Physicclaudia an Encounter [facility] Date(s): 09/28/21 - 09/29/[address] [address]- Encounter Diagnosis Thoughts of self harm(Final) - 09/28/21 Depression(Final) - 09/29/21 Discharge Disposition: A-D/C Home Attending Physician: Orlando [...] 0 Refills, Maintenance, 09/15/21 12:18:00 EDT, Tablet, [facility]-[id number], Partial fill upon patient request if the [...] 0 Refills, Maintenance, 09/15/21 12:17:00 EDT, Capsule, [facility]-[id number], Partial fill upon patient request if the [...] 0 Refills, Maintenance, 09/15/21 12:18:00 EDT, Tablet, [facility]-[id number], Partial fill upon patient request if the [...] 09/15/21 12:16:00 EDT, Route to Pharmacy Electronically, [facility]-[id number], Partial fill upon patient request if the [...] [Reference Range]: 1 2 Height 167 cm (09/28/21 9:50 PM) Weight 141 kg (09/28/21 9:50 PM) Oxygen Saturation [94-100 %] 97 % (09/29/21 2:02 AM) 96 % (09/28/21 9:52 PM) Pulse Rate [55-90 bpm] 65 bpm (09/29/21 2:02 AM) 113 bpm *H* (09/28/21 9:52 PM) Blood Pressure [90-138/55-84 mm Hg] 125/ 80mm Hg (09/29/21 2:02 AM) 113/73mm Hg (09/28/21 9:52 PM) Respiratory Rate [16-30 br/min] 18 br/mi n (09/29/21 2:02 AM) 18 br/min (09/28/21 9:52 PM) Temperature [96.8-100.4 DegF] 97.1 DegF (09/29/21 2:02 AM) 98.0 DegF (09/28/21 9:52 PM) Mode of Delivery (Oxygen) Room air (09/29/21 2:02 AM) Room air (09/28/21 9:52 PM) Blood pressure sites Arm, left (09/29/21 2:02 AM) Arm, left (09/28/21 9:52 PM) Temperature Route Temporal (09/29/21 2:02 AM) Temporal (09/28/21 9:52 PM) Dry Weight 141 kg (09/28/21 9:50 PM) Weight Obtained Via Patient/family state d (09/28/21 9:50 PM) Social History Social History Type Response Smoking Status 10 or more cigarette s (1/2 pack or more)/day in last 30 days entered on: 12/11/20 Sex
--- OUTSIDE RECORDS SUMMARY | 2023-06-07 19:11 | XMS_ITS | Continuity of Care Document ---
Author Organization [facility] Address [address] [place] [address]- Care Team Providers Care Test Baker Name Role Phone Yovanny RILEY, Renee Primary Care Physician Encounter [facility] Date(s): 12/27/22 - 01/03/[address] [address]- Encounter Diagnosis Intentional overdose(Final) - 12/27/22 Discharge Disposition: Transfer to [facility] Facility Attending Physician: Andre ESTES, Patti Grimes Admitting Physician: Boogie ESTES, Magdi Rogers Referring [...] 0 Refills, Maintenance, 10/10/22 10:08:00 EDT, Capsule, [facility]-[id number], Partial fill upon patient request if the prescription is for a schedule II opioid drug., 168, cm, 10/10/22 9:07... Start Date: 10/10/22 Status: Ordered gabapentin 300 mg oral capsule 300 mg, By Mouth, Daily, # 30 capsule, Refills 0, Tot. Refills 0, Maintenance, 10/10/22 10:08:00 EDT, Route to Pharmacy Electronically, [facility]-[id number], Partial fill upon patient request if the prescription is for a schedule II opio... Start Date: 10/10/22 Status: Ordered gabapentin 300 mg oral capsule 300 mg, Capsule, By Mouth, 01/03/23 9:00:00 EST Start Date: 01/03/23 Stop Date: 01/03/23 Status: Completed gabapentin 600 mg oral tablet [...] Refills, Maintenance, 10/10/22 10:10:00 EDT, DIS Tablet, [facility]-[id number], Partial fill upon patient request if the [...] Range]: 1 2 3 Height 168 cm (01/03/23 7:21 AM) 168 cm (01/02/23 11:59 PM) 168 cm (01/02/23 8:42 PM) Weight 145 kg (12/28/22 12:47 AM) 145 kg (12/27/22 11:01 PM) 145 kg (12/27/22 8:28 PM) Oxygen Saturation [94-100 %] 98 % (01/03/23 7:21 AM) 97 % (01/02/23 11:59 PM) 100 % (01/02/23 8:42 PM) Pulse Rate [55-90 bpm] 87 bpm (01/03/23 7:21 AM) 96 bpm *H* (01/02/23 11:59 PM) 110 bpm *H* (01/02/23 8:42 PM) Body Mass Index [18.5-24.99 kg/m2] 51.37 kg/m2 *>HHI* (12/28/22 12:47 AM) 51.37 kg/m2 *>HHI* (12/27/22 11:01 PM) 51.37 kg/m2 *>HHI* (12/27/22 8:28 PM) Blood Pressure [90-138/55-84 mm Hg] 112/63mm Hg (01/03/23 7:21 AM) 123/60mm Hg (01/02/23 11:59 PM) 141/84mm Hg *H* (01/02/23 8:42 PM) Respiratory Rate [16-30 br/min] 16 br/min (01/03/23 9:51 AM) 18 br/min (01/03/23 8:03 AM) 16 br/min (01/03/23 7:21 AM) Temperature [96.8-100.4 DegF] 99.9 DegF (01/03/23 7:21 AM) 98.0 DegF (01/02/23 11:59 PM) 98.4 DegF (01/02/23 8:42 PM) Mode of Delivery (Oxygen) Room air (01/03/23 7:21 AM) Room air (01/02/23 11:59 PM) Room air (01/02/23 8:42 PM) Blood pressure sites Arm, right (01/03/23 7:21 AM) Arm, right (01/02/23 11:59 PM) Arm, right (01/02/23 8:42 PM) Temperature Route Oral (01/03/23 7:21 AM) Oral (01/02/23 11:59 PM) Oral (01/02/23 8:42 PM) Dry Weight 145 kg (12/28/22 12:47 AM) 145 kg (12/27/22 11:01 PM) 145 kg (12/27/22 8:28 PM) Social History Social History Type Response Smoking Status 10 or more cigarette s (1/2 pack or more)/day in last 30 days entered on: 09/07/18 Sex Admission evaluation note * Boogie ESTES, Magdi Rogers: MODIFY, PERFORM, MODIFY, MODIFY, MODIFY, MODIFY, MODIFY, MODIFY, MODIFY Event Display: Admission Note Authored Date: [id number] Patient: ??JORGE MORA ? Age:??22 Years?Sex:??Female?:??2000?? History of Present Illness 22-year-old female with history of Depression, PTSD and BPD with numerous psychiatric hospitalizations??who presented to the ED??with intentional??drug intake, overdose ?Pre-Hospital course: ?-Patient reported that she took a punch??of her home meds??earlier today around 4:30 PM,??patient does not know exactly??how much she took from every medication, she reported that she was impulsive??and tried to hurt herself??because of some negative thoughts that she had at that time,??even though she denied suicidal ideation ?-Patient denied fever/chills, chest pain, presyncope/syncope, nausea/vomiting, diarrhea/constipation, urinary symptoms, weight gain, lower extremity edema, or motor/sensory deficits. ?ED course: ?On presentation to the ED patient was tachycardic, other vitals are stable Labs are significant for normal CBC, normal electrolytes In the ED patient received IV fluids Patient be admitted for intentional drug overdose, Review of Systems A full review of systems was completed and is otherwise negative except as mentioned in history of present illness.?? Objective Vital Signs?? Temperature: 97.6 DegF (12/27/22 20:28:00) Temperature Route: Temporal (12/27/22 20:28:00) Pulse Rate:??127 bpm??High (12/27/22 20:28:00) Respiratory Rate: 16 br/min (12/27/22 20:28:00) Systolic Blood Pressure: 115 mm Hg (12/27/22 20:28:00) Diastolic Blood Pressure: 57 mm Hg (12/27/22 20:28:00) Blood pressure sites: Arm, right (12/27/22 20:28:00) Mean Arterial Pressure: 76 mm Hg (12/27/22 20:28:00) Pulse Pressure: 58 mm Hg (12/27/22 20:28:00) Oxygen Saturation: 98 % (12/27/22 20::00) Mode of Delivery (Oxygen): Room air (12/27/22 20:28:00) ? Physical Exam ?General: AAOx3, in no acute distress, sleepy ?Neuro: CN 2-12 grossly intact, motor strength 5/5 in all extremities, no sensory deficits?HEENT: EOMI, PERRL, mouth/nose/pharynx WNL ?Neck: Supple, no LAD, JVD not congested ?Heart: Normal S1/S2, RRR, no MRGs ?Lungs: CTA b/l, no rales, rhonchi, wheezing or rubs ?Abdomen: +BS, soft, non-tender.non Distended. ?Extremities: Warm, no edema b/l. ?Musculoskeletal:??Joints (no swelling, denies tenderness). ? Assessment/Plan 22-year-old female with history of Depression, PTSD and BPD with numerous psychiatric hospitalizations??who presented to the ED??with intentional??drug intake, overdose? Intentional drug overdose: ?-Patient reported that she took a punch??of her home meds??earlier today around 4:30 PM,??patient does not know exactly??how much she took from every medication, she reported that she was impulsive??and tried to hurt herself??because of some negative thoughts that she had at that time,??even t adam she denied suicidal ideation On presentation to the ED patient was tachycardic, other vitals are stable Labs are significant for normal CBC, normal electrolytes In the ED patient received IV fluids ?? plan: teletypesetter monitor IV fluids We will hold all home meds for now every 2 hour EKGs until?? no tachycardia Keep mg and K above 4 and 2 Patient will ??needs psychiatric evaluation Follow-up urine tox screen results ?QM: ?Code status:??Full ?DVT prophylaxis:??Enoxaparin ?Diet:??Regular ? Histories Allergies Allergies ?(Active and Proposed [...] in last 6 months: No. ??Gender identity: Ahvvzj-ef-Nieo (FTM)/ Transgender Male/Trans Man. ??Preferred pronoun: He/him. Substance Abuse Details:??Use: Never. Tobacco Details:??Use: 10 or more cigarettes (1/2 pack or more)/day in last 30 days. Electronic Cigarette/Vaping Details:??Electronic Cigarette Use: Never. ? Family History Father: Diabetes mellitus; Hypertension Mother: Cancer; Diabetes mellitus; Hypertension Sister: Depression ? Medications Home Medications Bacitracin Topical (bacitracin topical 500 u/gm ointment)?1?sharonda?Topically?3 times a day?for 7?Days?apply to affected skin Benzonatate (benzonatate 100 mg oral capsule)?2?capsule?200?Milligram?By Mouth?3 times a day?as needed?as needed for cough Desmopressin (desmopressin 0.2 mg oral tablet)?2?tab(s)?0.4?Milligram?By Mouth?Daily at bedtime DiphenhydrAMINE (diphenhydrAMINE 50 mg oral capsule)?1?capsule?50?Milligram?By Mouth?2 times a day?as needed?Anxiety Duloxetine (duloxetine 20 mg oral enteric coated capsule)?20?Milligram?By Mouth?2 timesa day Fluticasone Nasal (fluticasone 27.5 mcg/inh nasal spray)?2?spray(s)?Nares, Both?Daily?as needed?for allergy symptoms Gabapentin (gabapentin 600 mg oral tablet)?600?Milligram?By Mouth?3 times a day Gabapentin (gabapentin 300 mg oral capsule)?300?Milligram?By Mouth?Daily Guaifenesin/Dextromethorphan (Robitussin DM Liquid)?5?Milliliter?By Mouth?Every 8 hours?as needed?Cough Haloperidol (haloperidol 5 mg oral tablet)?5?Milligram?1?tablet?By Mouth?3 times a day?as needed?Anxiety Lamotrigine (lamotrigine 25 mg oral tablet)?50?Milligram?By Mouth?Daily Lamotrigine?75?Milligram?By Mouth Melatonin (melatonin 3 mg oral tablet)?3?tab(s)?9?Milligram?By Mouth?Daily at bedtime?as needed?for insomnia Methylphenidate (methylphenidate 54 mg oral tablet, extended release)?54?Milligram?By Mouth?Daily Olanzapine (olanzapine 5 mg oral tablet, disintegrating)?5?Milligram?By Mouth?Daily?as needed?Anxiety Prazosin (prazosin 1 mg oral capsule)?2?Milligram?By Mouth?Daily at bedtime Topiramate (topiramate 25 mg oral tablet)?25?Milligram?By Mouth?Daily ? Results Recent Labs BLOOD COUNT & DIFF WBC 8.0 k/mm3 ()?? 12/27/2022 20:56 RBC 4.80 m/mm3 ()?? 12/27/2022 20:56 Hgb 13.4 Gm/dL ()?? 12/27/2022 20:56 Hct 41.5 % ()?? 12/27/2022 20:56 MCV 86.5 femtoliters ()?? 12/27/2022 20:56 MCH 27.9 pg ()?? 12/27/2022 20:56 MCHC 32.3 g/dL (Low)?? 12/27/2022 20:56 Platelet Count 212 k/mm3 ()?? 12/27/2022 20:56 RDW-SD 41.1 femtoliters ()?? 12/27/2022 20:56 MPV 12.5 femtoliters (High)?? 12/27/2022 20:56 Nucleated RBC (Automated) 0.0 #/100 WBC'S ()?? 12/27/2022 20:56 Abs. NRBC 0.0 k/mm3 ()?? 12/27/2022 20:56 Abs. Neut 4.7 k/mm3 ()?? 12/27/2022 20:56 Abs. Lymph 2.4 k/mm3 ()?? 12/27/2022 20:56 Abs. [place] 0.7 k/mm3 ()?? 12/27/2022 20:56 Abs. Eo 0.1 k/mm3 ()?? 12/27/2022 20:56 Abs. Baso 0.0 k/mm3 ()?? 12/27/2022 20:56 Neut % 58.4 % ()?? 12/27/2022 20:56 Lymph % 30.4 % ()?? 12/27/2022 20:56 [place] % 8.6 % ()?? 12/27/2022 20:56 Eos % 1.8 % ()?? 12/27/2022 20:56 Baso % 0.5 % ()?? 12/27/2022 20:56 Imm Gran 0.3 % ()?? 12/27/2022 20:56 Abs. Imm Gran 0.0 k/mm3 ()?? 12/27/2022 20:56 ?? CHEM GENERAL Sodium 138 mmol/L ()?? 12/27/2022 20:56 Potassium 4.0 mmol/L ()?? 12/27/2022 20:56 Chloride 105 mmol/L ()?? 12/27/2022 20:56 Bicarbonate Level 20 mmol/L (Low)?? 12/27/2022 20:56 Anion Gap 13 ()?? 12/27/2022 20:56 Glucose Level 137 mg/dL (High)?? 12/27/2022 20:56 BUN 12 mg/dL ()?? 12/27/2022 20:56 Creatinine-Blood 0.8 mg/dL ()?? 12/27/2022 20:56 Estimated GFR Creatinine 103 ML/MIN/1.73 M2 ()?? 12/27/2022 20:56 Calcium 9.2 mg/dL ()?? 12/27/2022 20:56 Magnesium 1.9 mg/dL ()?? 12/27/2022 20:56 Protein, Total 6.9 Gm/dL ()?? 12/27/2022 20:56 Albumin 4.0 Gm/dL ()?? 12/27/2022 20:56 AG Ratio 1.4 ()?? 12/27/2022 20:56 Alkaline Phosphatase 83 units/L ()?? 12/27/2022 20:56 AST (SGOT) 21 units/L ()?? 12/27/2022 20:56 ALT (SGPT) 25 units/L ()?? 12/27/2022 20:56 Bilirubin, Total 0.1 mg/dL ()?? 12/27/2022 20:56 ?? FLUID STUDIES Hold Other SPECIMEN DISCARDED AFTER 1 WEEK ()?? 12/27/2022 20:56 ?? HEME OTHER Hold Blue Top SPECIMEN DISCARDED AFTER 4 HOURS. ()?? 12/27/2022 20:56 ?? MISC. CHEMISTRY Hold Gel Top SPECIMEN DISCARDED AFTER 1 WEEK ()?? 12/27/2022 20:56 ?? TOXICOLOGY/TDM Ethanol, Serum or Plasma NONE DETECTED mg/dL ()?? 12/27/2022 20:56 Salicylate Level <0.3 mg/dL (Low)?? 12/27/2022 20:56 Acetaminophen Level <5 mg/L (Low)?? 12/27/2022 20:56 ?? URINE OTHER Est Creatinine Clearance 102.07 mL/min ()?? 12/27/2022 21:33 ? EKG study * Event Display: ECG 12-Lead Authored Date: Please click on pdf link to open report * Event Display: ECG 12-Lead Authored Date: Ventricular Rate: 86 BPM Atrial Rate: 86 BPM P-R Interval: 206 ms QRS Duration: 90 ms Q-T Interval: 364 ms QTC Calculation(Bazett): 435 ms P Isom: 47 degrees R Isom: 56 degrees T Isom: 18 degrees Normal sinus rhythm Normal ECG When compared with ECG of 28-DEC-2022 08:05, No significant change was found Confirmed by CHRISTEN NÚÑEZ ([id number]) on 12/28/2022 5:08:10 PM [place]: CHRISTEN NÚÑEZ * Event Display: ECG 12-Lead Authored Date: [id number] Please click on pdf link to open report * Event Display: ECG 12-Lead Authored Date: [id number] Ventricular Rate: 100 BPM Atrial Rate: 100 BPM P-R Interval: 204 ms QRS Duration: 92 ms Q-T Interval: 358 ms QTC Calculation(Bazett): 461 ms P Isom: 47 degrees R Isom: 54 degrees T Isom: 19 degrees Normal sinus rhythm Normal ECG When compared with ECG of 28-DEC-2022 03:54, Nonspecific T wave abnormality no longer evident in Anterior leads Confirmed by CHRISTEN NÚÑEZ ([id number]) on 12/28/2022 5:04:21 PM [place]: CHRISTEN NÚÑEZ * Event Display: ECG 12-Lead Authored Date: [id number] Please click on pdf link to open report * Event Display: ECG 12-Lead Authored Date: [id number] Ventricular Rate: 113 BPM Atrial Rate: 113 BPM P-R Interval: 194 ms QRS Duration: 90 ms Q-T Interval: 318 ms QTC Calculation(Bazett): 436 ms P Isom: 41 degrees R Isom: 56 degrees T Isom: 8 degrees Sinus tachycardia Nonspecific T wave abnormality Abnormal ECG When compared with ECG of 27-DEC-2022 23:53, No significant change was found Confirmed by CHRISTEN NÚÑEZ ([id number]) on 12/28/2022 5:02:58 PM [place]: CHRISTEN NÚÑEZ [facility] Progress note * Sandra Owens: VERIFY, PERFORM, MODIFY, SIGN Event Display: Progress Note Hospital Authored Date: Patient: JORGE MORA Age: 22 years Sex: Female : 2000 Associated Diagnoses: None Author: Sandra Owens Findings Problem Related to Alteration in Psychosocial : Alteration in Psychosocial Function/new 01/03/2023 7:00 EST Alteration in Psychosocial Related to Suicidal Goals & Outcomes, Psychosocial Psychosocial support will be provided to Pt/S.O. as needed, Pt/caregiver will express feelings/needs/fears /concerns, Pt/caregiver will maintain/obtain psychological stability, Pt will be monitored for suicidal ideation, Pt will manage stressors w/out self injury Interventions, Psychosocial Assess psychosocial needs, Assess readiness to learn needed lifestyle changes, Evaluate resources & support system available to pt, Offer support; discuss coping strategies, Provide a calm, supportive environment, Provide chances to express concerns/emotions/expectations BH Goals/Interventions, Psychosocial Yes Psychosocial, Problem Start 01/02/2023 23:17 Reviewed Plan with, Psychosocial Patient Patient Progression, Psychosocial Pt progressing according to plan . Narrative/Incidental Handoff report received from previous RN Susi, zoe assumed at 07:00. Pt A&Ox4, pt states feeling slightly anxious about DC due to excitement to leave and fear of being delayed with leaving, PRN Hydroxyzine given with good effect. Pt denies SI this shift, pt states excitement about leaving and being able to see family. Pt requested to have their phone back and to shower/change back into their own clothes, social work and MD Powell notified, social work notified MANAGER INSTALLATION who gave the OK for ptto shower and change back into own clothes but to hold off on giving pt their phone back. 1:1 held onto pt's phone until DC from floor. Pt showered with 1:1 in room with them. Lung sounds clearx4 on RA, pt remained indendent in the room with a 1:1 thorughout shift. Pt ordered for DC, discharge orders reviewed, pt states good understanding. Pt 's uncle at bedside for garbage pick up man, MANAGER INSTALLATION worker Latia notified of uncle's arrival, MANAGER INSTALLATION worker Latia at bedside prior to DC. Pt left floor ambulatory to main lobby with uncle. . Discharge Information Rehabilitation Discharge : Rehab Discharge Index 12/29/2022 15:29 EST Comments on treatment indicated at current functional baseline Cane: distance 20-50 Full chart review completed Yes Hospital course Pt admitted to [place] [address] for SI (pending bed search) Other findings Pt able to complete ADLs w/ use of cane for community distances. Pt with no gait instability or presence of knee buckaling (reported at baseline). * Care , Lilibeth: PERFORM, SIGN, VERIFY Event Display: Progress Note Hospital Authored Date: [id number] Patient: JORGE MORA Age: 22 years Sex: Female : 2000 Associated Diagnoses: None Author: Zoe , Lilibeth Findings Problem Related to Alteration in Psychosocial : Alteration in Psychosocial Function/new 01/02/2023 23:00 EST Alteration in Psychosocial Related to Suicidal Goals & Outcomes, Psychosocial Psychosocial support will be provided to Pt/S.O. as needed, Pt/caregiver will express feelings/needs/fears /concerns, Pt/caregiver will maintain/obtain psychological stability, Pt will be monitored for suicidal ideation, Pt will manage stressors w/out self injury Interventions, Psychosocial Assess psychosocial needs, Evaluate resources & support system available to pt, Offer support; discuss coping strategies, Provide a calm, supportive environment, Provide chances to express concerns/emotions/expectations, Initiate constant pet sitter while pt is actively suicidal, Assess environment for safety, Assess pt's suicidal ideation BH Goals/Interventions, Psychosocial Yes Psychosocial, Problem Start 01/02/2023 23:17 Reviewed Plan with, Psychosocial Patient Patient Progression, Psychosocial Plan Initiation . Narrative/Incidental Patient is AOx4. VSS. Reported bilateral knee pain and prn ibuprofen given at 2040. Patient has notexpressed any suicidal ideation or anxiety this shift. Patient self removed nicotine patch at 2039.This RN spoke with MANAGER INSTALLATION regarding patient discharge on 01/03. Patient states that their uncle is able to pick them up upon dc and bring to respite facility. Patient ambulating in room and in hallways.Constant pet sitter at bedside. Safety measures in place. No unmet needs at this time. . Discharge Information Rehabilitation Discharge : Rehab Discharge Index 12/29/2022 15:29 EST Comments on treatment indicated at current functional baseline Cane: distance 20-50 Full chart review completed Yes Hospital course Pt admitted to [facility] for SI (pending bed search) Other findings Pt able to complete ADLs w/ use of cane for community distances. Pt with no gait instability or presence of knee buckaling (reported at baseline). * Mckayla Jensen RN: VERIFY, PERFORM, SIGN Event Display: Progress Note Hospital Authored Date: [id number] Patient: JORGE MORA Age: 22 years Sex: Female : 2000 Associated Diagnoses: None Author: Mikey RN, Mckayla Findings patient on continuous observation, calm and cooperative with care, tearful about delay in discharge plan, phone calls made and patient has a bed in [place] on [address], medlist sent- waiting to be clarified, MANAGER INSTALLATION called this RN and said they will call to see where is the delay, will continue to monitor. Note * Sandra Owens: PERFORM Event Display: Discharge/Transfer Note Hospital Authored Date: Nursing Discharge Note Entered On: 01/03/2023 11:17 EST Performed On: 01/03/2023 11:17 EST by Sandra Owens Nursing Discharge Note 2 Discharge Time : 01/03/2023 11:14 EST Discharge Level of Care at Discharge : Psychiatric Facility/Unit Patient Left Unit Via : Ambulatory Patient Accompanied Off Unit with : Responsible adult DC Instructions Provided & Signed by Pt : Yes Patient Understands D/C Instructions : Yes Patient Instructions Discharge Signed : Yes Did Pt have Specialty Bed or Wound Vac : No Sandra Owens - 01/03/2023 11:17 EST * Andre ESTES, Patti Grimes: PERFORM Event Display: Discharge/Transfer Note Hospital Authored Date: [id number] Patient: ??JORGE MORA ? Age:??22 Years?Sex:??Female?:??2000?? Patient Information Discharge Location: [facility] Primary Care Physician: Renee Hairston NP Admit Date/Time: 12/27/22 18:44 Discharge Disposition Discharge Disposition: ?? Discharge Diagnosis Intentional overdose (T50.902A) Metabolic encephalopathy (G93.41) Depression (F32.A) Nicotine dependence (F17.200) ?? _ Discharge Medications Desmopressin (desmopressin 0.2 mg oral tablet)?2?tab(s)?0.4?Milligram?By Mouth?Daily at bedtime DiphenhydrAMINE (diphenhydrAMINE 50 mg oral capsule)?1?capsule?50?Milligram?By Mouth?2 times a day?as needed?Anxiety Duloxetine (duloxetine 20 mg oral enteric coated capsule)?20?Milligram?By Mouth?2 timesa day Gabapentin (gabapentin 600 mg oral tablet)?600?Milligram?By Mouth?Daily at bedtime Gabapentin (gabapentin 300 mg oral capsule)?300?Milligram?By Mouth?Daily Haloperidol (haloperidol 5 mg oral tablet)?5?Milligram?1?tablet?By Mouth?2 times a day?as needed?Anxiety Lamotrigine?75?Milligram?By Mouth?Daily Methylphenidate (methylphenidate 54 mg oral tablet, extended release)?54?Milligram?By Mouth?Daily Olanzapine (olanzapine 5 mg oral tablet, disintegrating)?5?Milligram?By Mouth?Daily?as needed?Anxiety Ondansetron (Zofran ODT 4 mg oral tablet, disintegrating)?4?Milligram?By Mouth?3 times a day?as needed?Nausea Prazosin (prazosin 1 mg oral capsule)?2?Milligram?By Mouth?Daily at bedtime Topiramate (topiramate 25 mg oral tablet)?25?Milligram?By Mouth?Daily ? Quality Measures Tobacco Use Treatment:? Vaccinations and Immunoprophylaxis influenza virus vaccine, inactivated: 0.5 mL (12/17/21 10:20:00) influenza virus vaccine, inactivated: 0.5 mL (11/11/20 11:30:00) SARS-CoV-2 (COVID-19) mRNA BNT-162b2 vac: 0.3 Unknown (04/13/20 07:00:00) SARS-CoV-2 (COVID-19) mRNA BNT-162b2 vac: 0.3 Unknown (03/02/20 07:00:00) SARS-CoV-2 (COVID-19) mRNA-1273 vaccine: 0 Unknown (01/25/21 07:00:00) tetanus/diphtheria/pertussis, acel(Tdap): 0.5 mL (10/19/21 03:04:00) tetanus/diphtheria/pertussis, acel(Tdap): 0.5 mL (12/22/19 15:46:00) ?? Medications Started none Medications Discontinued none Doses Changed none Allergies Allergies ?(Active and Proposed Allergies Only) Thorazine? (Severity: Unknown severity, Onset: Unknown) ?Reactions: Skin rash Geodon? (Severity: Unknown severity, Onset: Unknown) ?Reactions: full body tremors Trileptal? (Severity: Unknown severity, Onset: Unknown) ? Hospital Course Dudley is a 22-year-old with a history of MDD with multiple [facility] overdose of unknown substance monitored in the ICU with the assistance of poison control.??[facility] the [facility] ? Intentional overdose (T50.902A): - Unclear which substance it was. Poison control was consulted. Was managed with EKGs every 2 hours. QTc levels have been reviewed and appropriate. Electrolytes requesting to be 4 or greater for potassium. 2 or greater for her magnesium. Patient underwent a U tox which was only positive for cannabinoids. Low salicylate and acetaminophen level. Appreciate MANAGER INSTALLATION follow-up.?drug worker??as well??consulted and follow-up with the patient.??I discussed case with both social contact worker and MANAGER INSTALLATION this morning,??patient is??being accepted at the [facility] in [place] and??a family member and uncle will be driving patient there.??No concerns from MANAGER INSTALLATION or social work on discharge. Patient appears alert, oriented x 4, appropriate, with no medical reports, cleared medically for discharge. ? Metabolic encephalopathy (G93.41):??Resolved, was likely toxic secondary to?intentional overdose. Mental status is back to baseline. ? Depression (F32.A): Crisis evaluation appreciated.?Continue home medications. ? Objective Measurements?? Height: 168 cm (01/03/23) Weight: 145 kg (12/28/22) Dry Weight: 145 kg (12/28/22) Body Mass Index:??51.37 kg/m2??Critical (12/28/22) ? Vital Signs?? Temperature: 99.9 DegF (01/03/23 07:21:00) Temperature Route: Oral (01/03/23 07:21:00) Pulse Rate: 87 bpm (01/03/23 07:21:00) Respiratory Rate: 16 br/min (01/03/23 09:51:00) Systolic Blood Pressure: 112 mm Hg (01/03/23 07:21:00) Diastolic Blood Pressure: 63 mm Hg (01/03/23 07:21:00) Blood pressure sites: Arm, right (01/03/23 07:21:00) Mean Arterial Pressure: 79 mm Hg (01/03/23 07:21:00) Pulse Pressure: 49 mm Hg (01/03/23 07:21:00) Oxygen Saturation: 98 % (01/03/23 07:21:00) Mode of Delivery (Oxygen): Room air (01/03/23 07:21:00) Early Warning Score: 0 (01/03/23 09:51:33) ? Mobility & Ambulation Level Mobility & Ambulation Level?? No qualifying data available. ?? . Physical Exam General:??Alert, in no acute cardiopulmonary distress. Mental Status:??Oriented to person, place and time. Normal affect. Head:??Normocephalic. Eyes:??Pupils are equal, round and reactive to light. Extraocular muscles intact. Ear, Nose and Throat:??Oropharynx clear, mucous membranes moist. Ears and nose without masses, lesions or deformities.?? Trachea midline. Neck:??Supple, Full range of motion. Respiratory:??Clear to auscultation and percussion. No wheezing, rales or rhonchi. Cardiovascular:??Heart sounds normal. No thrills. Regular rate and rhythm, no murmurs, rubs or gallops. ??Lower extremity without edema bilaterally. Gastrointestinal:??Abdomen soft, non-tender, non-distended. Normal bowel sounds. No pulsatile mass.No hepatosplenomegaly. Genitourinary:??No costovertebral angle tenderness. Neurologic:??Cranial nerves II-XII grossly intact. No focal neurological deficits. ??Moves all extremities spontaneously. Sensation intact bilaterally. Skin:??No rashes or lesions. No petechiae or purpura. No edema. Musculoskeletal:??No cyanosis or clubbing. No gross deformities. Normal range of motion. ?? Pending Results Add On Lab Order ordered on 12/27/2022 Follow-Up Appointments Added Follow Up ?Time Frame ?Comments Renee Hairston?01/09/2023 09:45?YOU HAVE A FOLLOW UP APPOINTMENT WITH RENEE HAIRSTON NP, ??WHO WILL BE COVERING FOR KATHRYN CAMPUZANO, ON December, AT 9:45 AM. Anny Kilgore Post Discharge Care Discharge ?01/03/23 10:27:00 EST Home Health Face to Face ^[facility] Results Discharge Labs BLOOD COUNT & DIFF WBC 7.0 k/mm3 ()?? 12/28/2022 04:34 RBC 4.38 m/mm3 ()?? 12/28/2022 04:34 Hgb 12.3 Gm/dL ()?? 12/28/2022 04:34 Hct 38.3 % ()?? 12/28/2022 04:34 MCV 87.4 femtoliters ()?? 12/28/2022 04:34 MCH 28.1 pg ()?? 12/28/2022 04:34 MCHC 32.1 g/dL (Low)?? 12/28/2022 04:34 Platelet Count 196 k/mm3 ()?? 12/28/2022 04:34 RDW-SD 42.2 femtoliters ()?? 12/28/2022 04:34 MPV 12.9 femtoliters (High)?? 12/28/2022 04:34 Nucleated RBC (Automated) 0.0 #/100 WBC'S ()?? 12/28/2022 04:34 Abs. NRBC 0.0 k/mm3 ()?? 12/28/2022 04:34 Abs. Neut 4.7 k/mm3 ()?? 12/27/2022 20:56 Abs. Lymph 2.4 k/mm3 ()?? 12/27/2022 20:56 Abs. [place] 0.7 k/mm3 ()?? 12/27/2022 20:56 Abs. Eo 0.1 k/mm3 ()?? 12/27/2022 20:56 Abs. Baso 0.0 k/mm3 ()?? 12/27/2022 20:56 Neut % 58.4 % ()?? 12/27/2022 20:56 Lymph % 30.4 % ()?? 12/27/2022 20:56 [place] % 8.6 % ()?? 12/27/2022 20:56 Eos % 1.8 % ()?? 12/27/2022 20:56 Baso % 0.5 % ()?? 12/27/2022 20:56 Imm Gran 0.3 % ()?? 12/27/2022 20:56 Abs. Imm Gran 0.0 k/mm3 ()?? 12/27/2022 20:56 ?? CHEM GENERAL Sodium 137 mmol/L ()?? 12/28/2022 12:04 Potassium 4.5 mmol/L ()?? 12/28/2022 12:04 Chloride 107 mmol/L ()?? 12/28/2022 12:04 Bicarbonate Level 21 mmol/L (Low)?? 12/28/2022 12:04 Anion Gap 9 ()?? 12/28/2022 12:04 Glucose Level 137 mg/dL (High)?? 12/27/2022 20:56 BUN 12 mg/dL ()?? 12/28/2022 04:34 Creatinine-Blood 0.8 mg/dL ()?? 12/28/2022 04:34 Estimated GFR Creatinine 103 ML/MIN/1.73 M2 ()?? 12/28/2022 04:34 Calcium 9.2 mg/dL ()?? 12/27/2022 20:56 Calcium, Ionized pH Corrected 1.23 mmol/L ()?? 12/28/2022 04:34 Phosphorus 2.5 mg/dL ()?? 12/28/2022 04:34 Magnesium 2.0 mg/dL ()?? 12/28/2022 12:04 Protein, Total 6.9 Gm/dL ()?? 12/27/2022 20:56 Albumin 4.0 Gm/dL ()?? 12/27/2022 20:56 AG Ratio 1.4 ()?? 12/27/2022 20:56 Alkaline Phosphatase 83 units/L ()?? 12/27/2022 20:56 AST (SGOT) 21 units/L ()?? 12/27/2022 20:56 ALT (SGPT) 25 units/L ()?? 12/27/2022 20:56 Bilirubin, Total 0.1 mg/dL ()?? 12/27/2022 20:56 ?? FLUID STUDIES Hold Other SPECIMEN DISCARDED AFTER 1 WEEK ()?? 12/27/2022 20:56 ? HEME OTHER Hold Blue Top SPECIMEN DISCARDED AFTER 4 HOURS. ()?? 12/27/2022 20:56 ? MISC. CHEMISTRY Hold Gel Top SPECIMEN DISCARDED AFTER 1 WEEK ()?? 12/27/2022 20:56 ? TOXICOLOGY/TDM Ethanol, Serum or Plasma NONE DETECTED mg/dL ()?? 12/27/2022 20:56 Salicylate Level <0.3 mg/dL (Low)?? 12/27/2022 20:56 Barbiturate Screen, Urine NONE DETECTED ()?? 12/28/2022 10:13 Cannabinoid Screen, Urine POSITIVE (Abnormal)?? 12/28/2022 10:13 Cocaine Metabolite Screen, Urine NONE DETECTED ()?? 12/28/2022 10:13 Benzodiazepine Screen, Urine NONE DETECTED ()?? 12/28/2022 10:13 Amphetamine Screen, Urine NONE DETECTED ()?? 12/28/2022 10:13 Opiate Screen, Urine NONE DETECTED ()?? 12/28/2022 10:13 Acetaminophen Level <5 mg/L (Low)?? 12/27/2022 20:56 ? URINE OTHER Est Creatinine Clearance 102.07 mL/min ()?? 12/27/2022 21:33 ? 30 minutes spent on discharge * Sandra Owens: PERFORM Event Display: Patient Education/Instruction Authored Date: Inpatient Adult Discharge Instructions [address] [address] Name: JORGE MORA : 2000 Visit: 12/27/2022 18:44:00 Current Date: 01/03/2023 10:36 Account: [id number] Inpatient Adult Discharge Instructions We would like [...] and their families. Surveys are administered by [employer] ?? If further treatment with your primary care physician or another doctor is recommended, it is important for you to keep the appointment. Call your primary care physician or return to the Emergency Department immediately if your condition worsens, fails to improve, or new symptoms develop. If you need to find a doctor, you can call [facility] [employer] for a referral at [phone] or toll free at [phone] or log in to [email or web address].. ?? [facility], in keeping with [facility] guidance, no longer requires face masks for [...] a health care sharonda of your choosing. [employer] is a website that allows you to securely view your medical information including your hospital discharge summary, office visit summaries, medications and follow-up visits. You can also request appointments, renew medications, and request access to your medical information using a health care sharonda of your choosing, or just ask a question. You can enroll at [email or web address] or register during your next office visit. You have been discharged from [facility], Patient Care Unit: [id number]. If you have any questions regarding these instructions after you leave, please call us and we will be happy to assist you. [facility] Your Care Team Attending Physician Patti Powell MD Discharging Providers Patti Powell MD Reason for Admission INTENTIONAL DRUG OVERDOSE Your Diagnosis Intentional overdose Metabolic encephalopathy Depression Nicotine dependence Tests Performed Below is a partial [...] Differential Cocaine Urine Screen Comprehensive Metabolic Panel Creatinine HOLD BLUE TUBE HOLD GEL TUBE HOLD OTHER TUBE Ionized Calcium Lytes Magnesium Level Opiate Screen Urine Phosphorus Level Primary Care Provider Renee Hairston NP Advance Directive Health Care Proxy on File No Patient refuses to discuss Discharge Vitals Temperature: 99.9 DegF Height: 168 cm Pulse Rate: 87 bpm Weight: 145 kg Respiratory Rate: 16 br/min Body Mass Index:??51.37 kg/m2??Critical Systolic Blood Pressure: 112 mm Hg Body surface area: 2.6 Diastolic Blood Pressure: 63 mm Hg ?? Oxygen Saturation: 98 % ?? Studies Pending All tests and labs ordered during this hospital stay have been completed unless listed below. Please discuss all pending results with your provider listed above in these instructions. ?? Add On Lab Order What to do next Instructions From Your Doctor Discharge Orders You Need to Schedule the Following Appointments Follow Up with??Renee Hairston When:??01/09/2023 09:45 AM EST Why: YOU HAVE A FOLLOW UP APPOINTMENT WITH RENEE HAIRSTON NP, ??WHO WILL BE COVERING FOR KATHRYN CAMPUZANO, ON December, AT 9:45 AM. Where: [address] [place] [address] Business (1) Follow Up with??Anny Kilgore Where: [address] [facility] [place] [address] [facility] (1) Discharge Medications JORGE MORA :2000 Visit Date:12/27/2022 Medications: Please continue your medications until treatment is completed or stopped by your provider. Medications not listed below should be discontinued. Discuss any questions related to medications with your provider. What How Much When Instructions Next Dose Changed Lamotrigine 75 Milligram Oral Daily 01/04/23 9am Unchanged Desmopressin (desmopressin 0.2 mg oral tablet) 2 tab(s) Oral Daily at Bedtime 01/03/23 9pm Unchanged DiphenhydrAMINE (diphenhydrAMINE 50 mg oral capsule) 1 capsule Oral Twice a day as needed for Anxiety as needed Unchanged Duloxetine (duloxetine 20 mg oral enteric coated capsule) 20 Milligram Oral Twice a day 01/03/23 12:30 Unchanged Gabapentin (gabapentin 300 mg oral capsule) 300 Milligram Oral Daily 01/04/23 9am Unchanged Gabapentin (gabapentin 600 mg oral tablet) 600 Milligram Oral Daily at Bedtime 01/03/23 9pm Unchanged Haloperidol (haloperidol 5 mg oral tablet) 1 tab(s) Oral Twice a day as needed for Anxiety as needed Unchanged Methylphenidate (methylphenidate 54 mg oral tablet, extended release) 54 Milligram Oral Daily 01/04/23 9am Unchanged Olanzapine (olanzapine 5 mg oral tablet, disintegrating) 5 Milligram Oral Daily as needed for Anxiety as needed Unchanged Ondansetron (Zofran ODT 4 mg oral tablet, disintegrating) 4 Milligram Oral 3 times a day as needed for Nausea as needed Unchanged Prazosin (prazosin 1 mg oral capsule) 2 Milligram Oral Daily at Bedtime 01/03/23 9pm Unchanged Topiramate (topiramate 25 mg oral tablet) 25 Milligram Oral Daily 01/04/23 9am ?? What How Much When Comments Stop Taking Bacitracin Topical (bacitracin topical 500 u/ gm ointment) 1 sharonda Topically 3 times a day Duration: 7 Days apply to affected skin ?? Stop Taking Benzonatate (benzonatate 100 mg oral capsule) 2 capsule Oral 3 times a day as needed for as needed for cough Stop Taking Fluticasone Nasal (fluticasone 27.5 mcg/ inh nasal spray) 2 spray(s) Nares, Both Daily as needed for for allergy symptoms Stop Taking Guaifenesin/ Dextromethorphan (Robitussin DM Liquid) 5 Milliliter Oral Every 8 hours as needed for Cough Stop Taking Melatonin (melatonin 3 mg oral tablet) 3 tab(s) Oral Daily at Bedtime as needed for for insomnia Test Results Below is a partial list of the most recent Laboratory test results done prior to this discharge. You may have had other tests and procedures not included in this list. Please discuss all test resultswith your provider. Est Creatinine Clearance - 102.07 mL/min (12/27/2022) Acetaminophen Level (12/27/2022) ? ?Acetaminophen Level - <5 mg/L Alcohol Level (12/27/2022) ???Ethanol, Serum or Plasma - NONE DETECTED Amphetamine Urine Screen (12/28/2022) ???Amphetamine Screen, Urine - NONE DETECTED Aspirin Level (12/27/2022) ? ?Salicylate Level - <0.3 mg/dL Barbiturate Urine Screen (12/28/2022) ???Barbiturate Screen, Urine - NONE DETECTED Benzodiazepine Urine Screen (12/28/2022) ???Benzodiazepine Screen, Urine - NONE DETECTED BUN (12/28/2022) ???BUN - 12 mg/dL Cannabinoid Urine Screen (12/28/2022) ???Cannabinoid Screen, Urine - POSITIVE CBC (12/28/2022) ???WBC - 7.0 k/mm3???RBC - 4.38 m/mm3???Hgb - 12.3 Gm/dL???Hct - 38.3 %???MCV - 87.4 femtoliters???MCH - 28.1 pg???MCHC - 32.1 g/dL???Platelet Count - 196 k/mm3???RDW-SD - 42.2 femtoliters???MPV - 12.9 femtoliters???Nucleated RBC (Automated) - 0.0 #/100 WBC'S???Abs. NRBC - 0.0 k/mm3 CBC w/ Differential (12/27/2022) ???WBC - 8.0 k/mm3???RBC - 4.80 m/mm3???Hgb - 13.4 Gm/dL???Hct - 41.5 %???MCV - 86.5 femtoliters???MCH - 27.9 pg???MCHC - 32.3 g/dL???Platelet Count - 212 k/mm3???RDW-SD - 41.1 femtoliters???MPV - 12.5 femtoliters???Nucleated RBC (Automated) - 0.0 #/100 WBC'S???Abs. NRBC - 0.0 k/mm3???Abs. Neut - 4.7 k/mm3???Abs. Lymph - 2.4 k/mm3???Abs. [place] - 0.7 k/mm3???Abs. Eo - 0.1 k/mm3???Abs. Baso - 0.0 k/mm3???Neut % - 58.4 %???Lymph % - 30.4 %???[place] % - 8.6 %???Eos % - 1.8 %???Baso % - 0.5 %???Imm Gran - 0.3 %???Abs. Imm Gran - 0.0 k/mm3 Cocaine Urine Screen (12/28/2022) ???Cocaine Metabolite Screen, Urine - NONE DETECTED Comprehensive Metabolic Panel (12/27/2022) ???Sodium - 138 mmol/L???Potassium - 4.0 mmol/L???Chloride - 105 mmol/L???Bicarbonate Level - 20 mmol/L???Anion Gap - 13???Glucose Level - 137 mg/dL???BUN - 12 mg/dL???Creatinine-Blood - 0.8 mg/dL???Estimated GFR Creatinine - 103 ML/MIN/1.73 M2???Calcium - 9.2 mg/dL???Protein, Total - 6.9 Gm/dL???Al bumin - 4.0 Gm/dL???AG Ratio - 1.4???Alkaline Phosphatase - 83 units/L???AST (SGOT) - 21 units/L???ALT (SGPT) - 25 units/L???Bilirubin, Total - 0.1 mg/dL Creatinine (12/28/2022) ???Creatinine-Blood - 0.8 mg/dL???Estimated GFR Creatinine - 103 ML/MIN/1.73 M2 HOLD BLUE TUBE (12/27/2022) ???Hold Blue Top - SPECIMEN DISCARDED AFTER 4 HOURS. HOLD GEL TUBE (12/27/2022) ???Hold Gel Top - SPECIMEN DISCARDED AFTER 1 WEEK HOLD OTHER TUBE (12/27/2022) ???Hold Other - SPECIMEN DISCARDED AFTER 1 WEEK Ionized Calcium (12/28/2022) ???Calcium, Ionized pH Corrected - 1.23 mmol/L Lytes (12/28/2022) ???Sodium - 137 mmol/L???Potassium - 4.5 mmol/L???Chloride - 107 mmol/L???Bicarbonate Level - 21 mmol/L???Anion Gap - 9 Magnesium Level (12/28/2022) ???Magnesium - 2.0 mg/dL Opiate Screen Urine (12/28/2022) ???Opiate Screen, Urine - NONE DETECTED Phosphorus Level (12/28/2022) ???Phosphorus - 2.5 mg/dL Immunizations This Visit Not Given Vaccine Commentsinfluenza virus vaccine, inactivated Patient Refuses pt states they have been previously vaccinated Allergies (NKA means No Known Allergies) Geodon??(full body tremors) Thorazine??(Skin rash) Trileptal Problems Active Problems??(6) COVID-19?? COVID-19 virus infection?? Depression?? Major depressive disorder, recurrent?? Severe obesity?? Tobacco dependence?? Education Materials Below is the list of Educational Leaflet Providered with your Discharge Instructions. Valuables and Belongings I fully understand and agree that [facility] accepts no responsibility for [...] ?? Date for Pt to Sign Valuables/Belongings: 12/28/22 16:52:00 ?? Other Discharge Information ? Pulmonary Rehab [...] are strongly encouraged to quit. Please call [facility] [employer] at [phone] or [phone]) or log in to [email or web address] for referrals to smoking cessation programs. ?? 988 Suicide & Crisis Lifeline is available 04/09 if you or someone you know needs to find a reason to keep living. By calling 988 you'll be connected to a skilled, trained counselor at a crisis center in your area. INPATIENT DISCHARGE INSTRUCTIONS SIGNATURE PAGE JORGE MORA Location:[facility] Registration Date and Time:12/27/2022 18:44 EST Primary Care Physician: Renee Hairston NP, Attending Physician: Andre ESTES, Patti Grimes, I MORGAN JORGE, have received the above patient education materials/instructions and have verbalizedunderstanding. If ambulance or transport services are being used I further acknowledge being given a choice of service. ?? If you need to contact me, please call me at this number: . Patient/Modular Home Crew Member Name: Patient/Modular Home Crew Member Signature: Relationship to Patient: Witness Name/Signature: Date: * Felipe Bahena: SIGN, PERFORM, SIGN, VERIFY Event Display: Patient Education Handout Authored Date: [id number] Patient Care team information Care Team Personnel Name: Leah Almonte RN Position: [facility] RN Member Role: Primary Care Nurse Name: Natasha Dickey RN Position: [facility] RN Member Role: Primary Care Nurse Name: Genesis Lea RN Position: [facility] RN Member Role: Primary Care Nurse Name: Renee Hairston NP Position: [facility] PCO Associate Professional Member Role: PCP Address: Address: [address] [place] [id number]- Name: Blaire Solis RN Position: [facility] RN Member Role: Primary Care Nurse Name: Stefani Pinto RN Position: [facility] RN Member Role: Primary Care Nurse Name: Melissa Stapleton RN Position: [facility] RN Member Role: Primary Care Nurse Name: Ligia Stapleton RN Position: [facility] RN Member Role: Primary Care Nurse Name: Trinidad Ordonez RN Position: [facility] RN Member Role: Primary Care Nurse Name: Mariaelena Collazo RN Position: [facility] RN Member Role: Primary Care Nurse Name: Renee Croft RN Position: [facility] RN Member Role: Primary Care Nurse Name: John Cuellar RN Position: [facility] RN Member Role: Primary Care Nurse Name: Christos Godoy RN Position: [facility] RN Member Role: Primary Care Nurse Name: Karyna Morin RN Position: [facility] ED RN W/OE and Tasks Member Role: Patient Care Provider Name: Joanne Lazaro Position: [facility] ED OA Charge Member Role: ED Associate Name: Stewart Hirsch MD Position: [facility] ED Medicine MD Member Role: ED Attending Physician Address: Address: [address] [place] [address] Emergency Medicine [place], [place] - Care Team Related Persons Name: [employer] Address: home [address] [place] [id number] Name: YULIYA MORA Address: home [address] [place] [address] Name: SUNDAY MORA Address: [place] [address]
--- OUTSIDE RECORDS SUMMARY | 2023-06-07 19:11 | XMS_ITS | Continuity of Care Document ---
Author Organization [facility] Address [address] [place] [address]- Care Team Providers Care Rn Wellness Name Role Phone Katie RILEY, Nardajuan j Fonseca Primary Care Physici an [place] [facility] [place] - 07/30/[address] [address]- Discharge Disposition: A-D/C Home Attending Physician: Mario [...] Refills, Maintenance, 07/22/20 17:31:00 EDT, Tablet, [facility]-, Partial fill upon patient request if the prescription is for a schedule II opioid drug., 168, cm, ... Start Date: 07/22/20 Status: Ordered ibuprofen 600 mg oral tablet 600 mg, 1, tablet, By Mouth, 4 times a day, PRN, # 30 tablet, Refills 0, Tot. Refills 0, Maintenance, for pain, 07/22/20 17:32:00 EDT, Route to Pharmacy Electronically, [facility]-, Partial fill upon patient request [...] Refills, Maintenance, 04/22/20 14:44:00 EST, Capsule, [facility]-, Partial fill upon patient request if the prescription is for a schedule... Start Date: 04/22/20 Stop Date: 05/22/20 Status: Ordered prazosin 5 mg oral capsule 5 mg, 1, capsule, By Mouth, Daily at bedtime, # 30 capsule, Refills 0, Tot. Refills 0, Maintenance,04/22/20 14:44:00 EST, Route to Pharmacy Electronically, [facility]-, Partial fill upon patient request if the prescription is... Start Date: 04/22/20 Stop Date: 05/22/20 Status: Ordered prazosin 5 mg oral capsule 5 mg, Capsule, By Mouth, 07/29/20 21:44:00 EDT Start Date: 07/29/20 Stop Date: 07/29/20 Status: Completed Thorazine Tablet = 200 mg, 3 times [...] [Reference Range]: 1 2 Height 168 cm (07/29/20 8:52 PM) Weight 137.5 kg (07/29/20 8:52 PM) Oxygen Saturation [94-100 %] 98 % (07/29/20 8:52 PM) Pulse Rate [55-90 bpm] 113 bpm *H* (07/29/20 8:52 PM) Blood Pressure [90-138/55-84 mm Hg] 113/ 79mm Hg (07/29/20 10:21 PM) 115/83mm Hg (07/29/20 8:52 PM) Respiratory Rate [16-30 br/min] 18 br/mi n (07/29/20 8:52 PM) Temperature [96.8-100.4 DegF] 98.0 DegF (07/29/20 8:52 PM) Mode of Delivery (Oxygen) Room air (07/29/20 8:52 PM) Temperature Route Oral (07/29/20 8:52 PM) Dry Weight 137.5 kg (07/29/20 8:52 PM) Social History Social History Type Response Smoking Status 10 or more cigarette s (1/2 pack or more)/day in last 30 days entered on: 09/07/18 Sex
--- OUTSIDE RECORDS SUMMARY | 2023-06-07 19:11 | XMS_ITS | Continuity of Care Document ---
Author Organization [facility] Address [address] [place] [address]- Care Team Providers Care Security Police Officer Name Role Phone Katie RILEY, Narda Marian Primary Care Physici an [place] [facility] [place] - 02/19/[address] [address]- Discharge Disposition: A-D/C Home Attending Physician: Irwin [...] 0 Refills, Maintenance, 01/24/22 9:26:00 EST, Cream, [employer] [facility]-, Partial fill upon patient request if the prescription is for a schedule II opioid drug., Topically 2... Start Date: 01/24/22 Status: Ordered ARIPiprazole 10 mg oral tablet 20 mg, 2, tablet, By Mouth, Daily, # 60 tablet, Refills 0, Tot. Refills 0, Maintenance, 01/24/22 9:25:00 EST, Route to Pharmacy Electronically, [facility], Partial fill upon patient request if the prescription is for a schedul... Start Date: 01/24/22 Status: Ordered benztropine 1 mg oral tablet 1 mg, 1, tablet, By Mouth, Every 6 hours, PRN, PRN for extrapyramidal symptoms, # 60 tablet, Refills 0, Tot. Refills 0, Maintenance, Other, 01/24/22 9:26:00 EST, Route to Pharmacy Electronically, [facility], Partial fill upon... Start Date: 01/24/22 Status: Ordered diphenhydrAMINE 25 mg oral tablet 2 tablet = 50 mg, By Mouth, 3 times a day, PRN Agitation, to be given with haldol only, # 60 tablet, 0 Refills, Maintenance, 01/24/22 9:26:00 EST, Tablet, [facility], Partialfill upon patient request if the prescription is fo... Start Date: 01/24/22 Status: Ordered gabapentin 300 mg oral capsule 600 mg, 2, capsule, By Mouth, 3 times a day, # 180 capsule, Refills 0, Tot. Refills 0, Maintenance,01/24/22 9:26:00 EST, Route to Pharmacy Electronically, [facility], Partial fill upon patient request if the prescription is f... Start Date: 01/24/22 Status: Ordered haloperidol 5 mg oral tablet 5 mg, 1, tablet, By Mouth, Every 4 hours, PRN, to be given with diphenhydramine, # 60 tablet, Refills 0, Tot. Refills 0, Maintenance, Agitation, 01/24/22 9:26:00 EST, Route to Pharmacy Electronically, [facility], Partial fill... Start Date: 01/24/22 Status: Ordered hydrOXYzine pamoate 25 mg oral capsule 2 capsule = 50 mg, By Mouth, 4 times a day, PRN Anxiety, # 90 capsule, 0 Refills, Maintenance, 01/24/22 9:26:00 EST, Capsule, [facility]-, Partial fill upon patient request ifthe prescription is for a schedule II opioid drug.,... Start Date: 01/24/22 Status: Ordered lidocaine 5% topical ointment See Instructions, Topically 3 times a day to affected areas for pain, # 3 Gm, 0 Refills, Acute 02/24/22 8:00:00 EST, 02/23/22 8:00:00 EST, Ointment, [facility]-, Partial fill upon patient request if the prescription is for a sc... Start Date: 02/23/22 Stop Date: 02/24/22 Status: Ordered lithium 600 mg oral capsule = 600 mg, By Mouth, 2 times a day, # 60 capsule, 0 Refills, Maintenance, 01/24/22 9:27:00 EST, Capsule, [facility], Partial fill upon patient request if the prescription is for a schedule II opioid drug., 168, cm, 01/24/22 7:2... Start Date: 01/24/22 Status: Ordered methylphenidate 54 mg oral tablet, extended release 1 tablet = 54 mg, By Mouth, Daily, # 30 tablet, 0 Refills, Maintenance, 01/24/22 9:27:00 EST, ER Tablet, [facility], Partial fill upon patient request if the prescription is for a schedule II opioid drug., 168, cm, 01/24/22 7:... Start Date: 01/24/22 Status: Ordered ondansetron 4 mg oral tablet, disintegrating = 4 mg, By Mouth, Every 6 hours, PRN Nausea & Vomiting, # 30 capsule, 0 Refills, Maintenance, 01/24/22 9:27:00 EST, Tablet, [facility], Partial fill upon patient request if the prescription is for a schedule II opioid drug., 1... Start Date: 01/24/22 Status: Ordered prazosin 2 mg oral capsule 1 capsule = 2 mg, By Mouth, Daily at bedtime, # 30 capsule, 0 Refills, Maintenance, 01/24/22 9:27:00 EST, Capsule, [facility], Partial fill upon patient request if the prescription is for a schedule II opioid drug., 168, cm, 1... Start Date: 01/24/22 Status: Ordered PROzac 20 mg oral capsule 40 mg, 2, capsule, By Mouth, Daily, # 60 capsule, Refills 0, Tot. Refills 0, Maintenance, 01/24/22 9:26:00 EST, Route to Pharmacy Electronically, [facility], Partial fill upon patient [...] to oldest [Reference Range]: 1 2 Height 169 cm (02/19/22 8:12 PM) Weight 136 kg (02/19/22 8:12 PM) Oxygen Saturation [94-100 %] 98 % (02/19/22 10:27 PM) 97 % (02/19/22 8:12 PM) Pulse Rate [55-90 bpm] 73 bpm (02/19/22 10:27 PM) 95 bpm *H* (02/19/22 8:12 PM) Blood Pressure [90-138/55-84 mm Hg] 141/ 80mm Hg *H* (02/19/22 10:27 PM) 137/81mm Hg (02/19/22 8:12 PM) Respiratory Rate [16-30 br/min] 14 br/mi n *L* (02/19/22 10:27 PM) 12 br/min *L* (02/19/22 8:12 PM) Temperature [96.8-100.4 DegF] 97.1 DegF (02/19/22 8:12 PM) Mode of Delivery (Oxygen) Room air (02/19/22 10:27 PM) Room air (02/19/22 8:12 PM) Temperature Route Temporal (02/19/22 8:12 PM) Dry Weight 136 kg (02/19/22 8:12 PM) Social History Social History Type Response Smoking Status 10 or more cigarette s (1/2 pack or more)/day in last 30 days entered on: 12/11/20 Sex Note * Kwan ESTES, Irwin Wilson: PERFORM Event Display: Patient Education Leaflets Authored Date: Near-Fainting with Uncertain Cause ?? [id number] Near-Fainting with Uncertain Cause Fainting (syncope) is a temporary loss of consciousness. It's often called passing out. It happens when blood flow to the brain is reduced. Near-fainting (near-syncope) is like fainting, but you don't fully pass out. Instead, you feel like you are going to pass out, but don't actually lose consciousness. Signs and symptoms These are symptoms of near-fainting or symptoms that can be associated with near-fainting: ??? Feeling lightheaded or??like you are going to faint ??? Weak pulse ??? Nausea ??? Sweating ??? Blurred vision or feeling like your vision is fading ??? Palpitations ??? Chest pain ??? Trouble breathing ??? Feeling cool and clammy ?? Causes Fainting typically happens when your blood pressure or heart rate suddenly drops, and not enough blood flows to your brain. Common minor causes include: ??? Sudden emotional stress such as fear, pain, panic, or the sight of blood ??? Straining or overexertion, such as straining while using the toilet, vomiting, coughing, or sneezing ??? Standing up too quickly, or standing up for too long a time More serious causes include: ??? Very slow, fast, or irregular heart rate (arrhythmia) ??? Dehydration ??? Significant blood loss ??? Medicines, or a recent change in medicines. Medicines that can cause fainting include blood pressure or heart medicines. ??? Heart attack ??? Heart valve problems Remember, even minor causes can become serious if you fall and injure yourself, or are driving. Youmay need more tests. It's very important that you follow up with your doctor as advised. ?? Home care These guidelines will help you care for yourself at home: ??? Rest today. You can resume most of your normal activities as soon as you are feeling back to normal. ??? If you become lightheaded or dizzy, lie down right away or sit with your head between yourknees. ??? Drink plenty of fluids and don't skip meals. Because the exact cause of your near fainting spell is not known, another spell could occur withoutwarning. To stay safe, don't drive a car or use dangerous equipment. Don't take a bath alone. Don'tswim alone. You can resume these activities when your healthcare provider says that you are no longer in danger of having a near-fainting spell. ?? Follow-up care Follow up with your healthcare provider, or as advised. Call 911 Call 911 or get emergency care if any of the following occur: ??? Another near- fainting or full fainting spell occurs, and it's not explained by the common minor causes listed above ??? Chest, arm, neck, jaw, back or abdominal pain ??? Shortness of breath ??? Weakness, tingling, or numbness in one side of the face, or in one arm or leg ??? Slurred speech, confusion, trouble walking or seeing ??? Seizure ?? When to get medical advice Call your healthcare provider for advice if any of these occur: ??? Changes in your medicines ??? You start to have near fainting on a more frequent basis ?? Last Reviewed Date: 2021 ?? [id number] [employer]. All rights reserved. This information is not intended as a substitute for professional medical care. Always follow your healthcare professional's instructions. ?? Patient Care team information Care Team Personnel Name: Natasha Dickey RN Position: [facility] RN Member Role: Primary Care [...] Reference Physician Member Role: PCP Address: Address: [address] [place] [address]- [place] Name: Mariaelena Collazo RN Position: [facility] RN Member Role: Primary Care Nurse Name: Nikki Croft RN Position: [facility] RN Supv Member Role: Primary Care Nurse Name: Giana [place] RN Position: [facility] RN Member Role: Primary Care Nurse Name: John Cuellar RN Position: [facility] RN Member Role: Primary Care Nurse Name: Holly Bowman RN Position: [facility] RN Member Role: Primary Care Nurse Name: Aline Izaguirre RN Position: [facility] RN Member Role: Primary Care Nurse Name: Irwin Bowens MD Position: [facility] ED Medicine MD Member Role: Admitting Physician Address: Address: [address] [place] [address]- Name: Alejandra Cote RN Position: [facility] ED RN W/OE and Tasks Member Role: Patient Care Provider Care Team Related Persons Name: LONGTERM OFFICE TECHNICIANYENI Address: [address] [place] [address] Name: YULIYA MORA Address: home [address] [place] [address] Name: SUNDAY MORA Address: [place] [address]
--- OUTSIDE RECORDS SUMMARY | 2023-06-07 19:11 | XMS_ITS | Continuity of Care Document ---
Author Organization [facility] Address [address] [place] [address]- Care Team Providers Care Parts Salesperson Name Role Phone Katie RILEY, Narda Fonseca Primary Care Physici an En[place] [facility] [place] Date(s): 06/27/21 - 06/27/[address] [address]- Encounter Diagnosis Fatigue(Final) - 06/27/21 Headache(Final) - 06/27/21 Discharge Disposition: A-D/C Home Attending Physician: Torrey [...] 1 Refills, Maintenance, 11/15/20 15:50:00EDT, ER Tablet, [facility]- [id number], Partial fill upon patient request if the prescription is for a schedule II opioid drug., 168, cm, 1... Start Date: 11/15/20 Status: Ordered prazosin 2 mg oral capsule 1 capsule = 2 mg, By Mouth, Daily at bedtime, takes with 5 mg prazosin, # 30 capsule, 1 Refills, Maintenance, 11/15/20 15:50:00 EDT, Capsule, [facility]-[id number], Partial fill upon patient request if the prescription is for a schedule I... Start Date: 11/15/20 Stop Date: 01/14/21 Status: Ordered prazosin 5 mg oral capsule 5 mg, 1, capsule, By Mouth, Daily at bedtime, # 30 capsule, Refills 1, Tot. Refills 1, Maintenance,11/15/20 15:50:00 EDT, Route to Pharmacy Electronically, [facility]-[id number], Partial fill upon patient request if the prescription is f... Start Date: 11/15/20 Stop Date: 01/14/21 Status: Ordered PROzac 40 mg oral capsule 1 capsule = 40 mg, By Mouth, Daily, # 30 capsule, 1 Refills, Maintenance, 11/15/20 15:50:00 EDT, Capsule, [facility]-[id number], Partial fill upon patient request if the [...] 0 Refills, Maintenance, 11/15/20 15:50:00 EDT, Tablet, [facility]-[id number], Partial fill upon patient request if the prescription is for a schedule II opioid drug., 168, cm, 10... Start Date: 11/15/20 Status: Ordered Problem List Condition Effective Dates Status Health Status Inform ant Depression(Confirmed) Active Severe obesity(Confirmed) Active Tobacco dependence(Confirmed) Active Vital Signs Most recent to oldest [Reference Range]: 1 2 3 Height 168 cm (06/27/21 9:07 PM) 168 cm (06/27/21 7:02 PM) 168 cm (06/27/21 6:55 PM) Weight 141.8 kg (06/27/21 9:07 PM) 141.8 kg (06/27/21 7:02 PM) 141.8 kg (06/27/21 6:55 PM) Oxygen Saturation [94-100 %] 100 % (06/27/21 7:02 PM) Pulse Rate [55-90 bpm] 89 bpm (06/27/21 7:02 PM) Body Mass Index [18.5-24.99] 50.24 *>HHI* (06/27/21 7:02 PM) Blood Pressure [90-138/55-84 mm Hg] 123/75mm Hg (06/27/21 7:02 PM) Respiratory Rate [16-30 br/min] 18 br/min (06/27/21 7:02 PM) Temperature [96.8-100.4 DegF] 99.1 DegF (06/27/21 7:02 PM) Mode of Delivery (Oxygen) Room air (06/27/21 7:02 PM) Blood pressure sites Arm, right (06/27/21 7:02 PM) Temperature Route Oral (06/27/21 7:02 PM) Dry Weight 141.8 kg (06/27/21 9:07 PM) 141.8 kg (06/27/21 7:02 PM) 141.8 kg (06/27/21 6:55 PM) Weight Obtained Via Patient/family state d (06/27/21 6:55 PM) Social History Social History Type Response Smoking Status 10 or more cigarette s (1/2 pack or more)/day in last 30 days entered on: 12/11/20 Sex
--- OUTSIDE RECORDS SUMMARY | 2023-06-07 19:11 | XMS_ITS | Continuity of Care Document ---
Author Organization [facility] Address [address] [place] [address]- Care Team Providers Care Faculty Head Name Role Phone Katie RILEY, Narda Fonseca Primary Care Physici an [place] [facility] [place]07[place] - 04/08/[address] [address]- Encounter Diagnosis Depression(Final) - 04/08/20 Discharge Disposition: A-D/C Home Attending Physician: Carter [...] Maintenance,04/30/19 13:49:00 EDT, Route to Pharmacy Electronically, [facility]/pharmacy #[id number], 175, cm, 04/30/19 12:12:00 EDT, [...] oldest [Reference Range]: 1 2 3 Height 138 cm (04/07/20 9:21 PM) Weight 129.5 kg (04/07/20 9:21 PM) Oxygen Saturation [94-100 %] 98 % (04/08/20 10:00 AM) 100 % (04/08/20 7:27 AM) 98 % (04/07/20 9:21 PM) Pulse Rate [55-90 bpm] 98 bpm *H* (04/08/20 10:00 AM) 113 bpm *H* (04/08/20 7:27 AM) 110 bpm *H* (04/07/20 11:45 PM) Blood Pressure [90-138/55-84 mm Hg] 141/89mm Hg *H* (04/08/20 10:00 AM) 130/80mm Hg (04/08/20 7:27 AM) 125/68mm Hg (04/07/20 9:21 PM) Respiratory Rate [16-30 br/min] 17 br/min (04/08/20 10:00 AM) 19 br/min (04/08/20 7:27 AM) 18 br/min (04/08/20 5:19 AM) Temperature [96.8-100.4 DegF] 97.1 DegF (04/08/20 10:00 AM) 97.4 DegF (04/08/20 7:27 AM) 97.7 DegF (04/07/20 9:21 PM) Mode of Delivery (Oxygen) Room air (04/08/20 10:00 AM) Room air (04/08/20 7:27 AM) Room air (04/07/20 9:21 PM) Temperature Route Oral (04/08/20 10:00 AM) Oral (04/08/20 7:27 AM) Oral (04/07/20 9:21 PM) Dry Weight 129.5 kg (04/07/20 9:21 PM) Social History Social History Type Response Smoking Status 10 or more cigarette s (1/2 pack or more)/day in last 30 days entered on: 09/07/18 Sex
--- OUTSIDE RECORDS SUMMARY | 2023-06-07 19:11 | XMS_ITS | Continuity of Care Document ---
Author Organization [facility] Address [address] [place] [address]- Care Team Providers Care Accounts Administrator Name Role Phone Katie RILEY, Narda Fonseca Primary Care Physici an Encounter [facility] [place] Date(s): 07/27/20 - 07/28/[address] [address]- Encounter Diagnosis Suicide attempt(Final) - 07/27/20 Depression(Final) - 07/27/20 Discharge Disposition: A-D/C Home Attending Physician: Martin [...] Range]: 1 2 3 Height 168 cm (07/28/20 8:48 AM) 168 cm (07/27/20 9:34 PM) Weight 137 kg (07/28/20 8:48 AM) 137 kg (07/27/20 9:34 PM) Oxygen Saturation [94-100 %] 100 % (07/28/20 8:48 AM) 98 % (07/27/20 9:34 PM) Pulse Rate [55-90 bpm] 148 bpm *H* (07/28/20 8:48 AM) 114 bpm *H* (07/27/20 9:34 PM) Body Mass Index [18.5-24.99] 48.54 *>HHI* (07/28/20 8:48 AM) Blood Pressure [90-138/55-84 mm Hg] 123/73mm Hg (07/28/20 8:48 AM) 110/63mm Hg (07/27/20 9:34 PM) Respiratory Rate [16-30 br/min] 17 br/min (07/28/20 8:48 AM) 16 br/min (07/28/20 5:00 AM) 17 br/min (07/28/20 2:25 AM) Temperature [96.8-100.4 DegF] 97.2 DegF (07/28/20 8:48 AM) 98.1 DegF (07/27/20 9:34 PM) Mode of Delivery (Oxygen) Room air (07/28/20 8:48 AM) Room air (07/27/20 9:34 PM) Blood pressure sites Arm, right (07/28/20 8:48 AM) Arm, left (07/27/20 9:34 PM) Temperature Route Oral (07/28/20 8:48 AM) Oral (07/27/20 9:34 PM) Dry Weight 137 kg (07/28/20 8:48 AM) 137 kg (07/27/20 9:34 PM) Social History Social History Type Response Smoking Status 10 or more cigarette s (1/2 pack or more)/day in last 30 days entered on: 09/07/18 Sex
--- OUTSIDE RECORDS SUMMARY | 2023-06-07 19:11 | XMS_ITS | Continuity of Care Document ---
Author Organization [facility] Address [address] [facility] [place] [address]- Care Team Providers Care Clinic Assistant Name Role Phone Katie RILEY, Narda Fonseca Primary Care Physici an Encounter [facility] [place] Date(s): 02/21/21 - 03/23/21 [facility] [address] [place] [address]- Allergies, Adverse Reactions, Alerts Substance Reaction Severity [...] 1 Refills, Maintenance, 11/15/20 15:51:00 EDT, Tablet, [facility]-[id number], Partial fill upon patient request if the prescription is for a schedule II opioid drug., 168, cm,... Start Date: 11/15/20 Status: Ordered chlorproMAZINE 50 mg oral tablet = 50 mg, By Mouth, 3 times a day, # 90 tablet, 1 Refills, Maintenance, 11/15/20 15:50:00 EDT, Tablet, [facility]-[id number], Partial fill upon patient request if the prescription is for a schedule II opioid drug., 168, cm, 11/15/20 9:15:0... Start Date: 11/15/20 Status: Ordered Detrol LA 4 mg oral capsule, extended release 1 capsule = 4 mg, By Mouth, Daily, # 30 capsule, 3 Refills, Maintenance, 12/07/20 11:25:00 EDT, CR Capsule, [facility]-[id number], Partial fill upon patient request if the prescription is for a schedule II opioid drug., 167, cm, 12/07/20... Start Date: 12/07/20 Status: Ordered hydrOXYzine pamoate 50 mg oral capsule = 50 mg, By Mouth, Every 4 hours, PRN Anxiety, # 90 capsule, 1 Refills, Maintenance, 11/15/20 15:51:00 EDT, Capsule, [facility]-[id number], Partial fill upon patient request if the [...] 1 Refills, Maintenance, 11/15/20 15:50:00EDT, ER Tablet, [facility]- [address], Partial fill upon patient request if the prescription is for a schedule II opioid drug., 168, cm, 1... Start Date: 11/15/20 Status: Ordered prazosin 2 mg oral capsule 1 capsule = 2 mg, By Mouth, Daily at bedtime, takes with 5 mg prazosin, # 30 capsule, 1 Refills, Maintenance, 11/15/20 15:50:00 EDT, Capsule, [facility]-[id number], Partial fill upon patient request if the prescription is for a schedule I... Start Date: 11/15/20 Stop Date: 01/14/21 Status: Ordered prazosin 5 mg oral capsule 5 mg, 1, capsule, By Mouth, Daily at bedtime, # 30 capsule, Refills 1, Tot. Refills 1, Maintenance,11/15/20 15:50:00 EDT, Route to Pharmacy Electronically, [facility]-[id number], Partial fill upon patient request if the prescription is f... Start Date: 11/15/20 Stop Date: 01/14/21 Status: Ordered PROzac 40 mg oral capsule 1 capsule = 40 mg, By Mouth, Daily, # 30 capsule, 1 Refills, Maintenance, 11/15/20 15:50:00 EDT, Capsule, [facility]-[id number], Partial fill upon patient request if the prescription is for a schedule II opioid drug., 168, cm, 11/15/20 9:... Start Date: 11/15/20 Status: Ordered traZODone 150 mg oral tablet 1 tablet = 150 mg, By Mouth, Daily at bedtime, # 30 tablet, 0 Refills, Maintenance, 11/15/20 15:50:00 EDT, Tablet, [facility]-[id number], Partial fill upon patient request if the [...]
--- OUTSIDE RECORDS SUMMARY | 2023-06-07 19:11 | XMS_ITS | Continuity of Care Document ---
Author Organization [facility] Address [address] [facility] [place] [address]- Care Team Providers Care Estimating Engineer Name Role Phone Nikki Hairston NP Primary Care Physician [phone] Encounter [facility] [place] Date(s): 02/28/23 - 03/30/23 [facility] [address] [place] [address]- Attending Physician: Admtr, [id number] Admitting Physician: Admtr, [...] Team Personnel Name: Garcia Baez RN Position: [facility] RN Member Role: Primary Care Nurse Name: Diamond Mancini RN Position: [facility] SN RN Member Role: Primary Care Nurse Name: Leah Almonte RN Position: [facility] RN Member Role: Primary Care Nurse Name: Natasha Dickey RN Position: [facility] RN Member Role: Primary Care Nurse Name: Kellee Garvin RN Position: [facility] RN Member Role: Primary Care Nurse Name: Maegan Diaz RN Position: [facility] RN Member Role: Primary Care Nurse Name: Genesis Lea RN Position: [facility] RN Member Role: Primary Care Nurse Name: Nikki Hairston NP Position: [facility] PCO Associate Professional Member Role: PCP Address: Address: [address] [place] [address] Name: Alejandra Gilbert RN Position: [facility] RN Member Role: Primary Care Nurse Name: Zara Colon RN Position: [facility] RN Supv Member Role: Primary Care Nurse Name: Stefani Pinto RN Position: [facility] RN Member Role: Primary Care Nurse Name: Araceli Quevedo RN Position: [facility] RN Member Role: Primary Care Nurse Name: Fatoumata Loyd RN Position: [facility] RN Member Role: Primary Care Nurse Name: Melissa Stapleton RN Position: [facility] RN Member Role: Primary Care Nurse Name: Ligia Stapleton RN Position: [facility] RN Member Role: Primary Care Nurse Name: Melissa Davison RN Position: [facility] OB RN Member Role: Primary Care Nurse Name: Trinidad Ordonez RN Position: [facility] RN Member Role: Primary Care Nurse Name: Mariaelena Collazo RN Position: [facility] RN Member Role: Primary Care Nurse Name: Beatrice Pisano RN Position: [facility] RN Member Role: Primary Care Nurse Name: Shankar Man Position: [facility] RN Member Role: Primary Care Nurse Name: Nikki Croft RN Position: [facility] RN Member Role: Primary Care Nurse Name: John Cuellar RN Position: [facility] RN Member Role: Primary Care Nurse Name: Christos Godoy RN Position: [facility] RN Member Role: Primary Care Nurse Care Team Related Persons Name: SHELTER FINANCIAL SPECIALISTYENI Address: home [address] [place] [address] Name: YULIYA MORA Address: home [address] [place] [address] Name: SUNDAY MORA Address: [place] [address]
--- OUTSIDE RECORDS SUMMARY | 2023-06-07 19:11 | XMS_ITS | Continuity of Care Document ---
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 Start Date: 04/03/23 Status: Ordered duloxetine 60 mg oral enteric coated capsule = 60 mg, By Mouth, Daily, # 30 capsule, 0 Refills, Maintenance, 04/03/23 8:17:00 EST, Capsule, [facility]-[id number], Partial fill upon patient request if the prescription is for a schedule II opioid drug., 167, cm, 04/02/23 20:16:00 EST,... Start Date: 04/03/23 Status: Ordered haloperidol 5 mg oral tablet 5 mg, By Mouth, Daily, # 30 tablet, Refills 0, Tot. Refills 0, Maintenance, 04/03/23 8:19:00 EST, Route to Pharmacy Electronically, [facility]-[id number], Partial fill upon patient request if the prescription is for a schedule II opioid d... Start Date: 04/03/23 Status: Ordered haloperidol 5 mg oral tablet 5 mg, By Mouth, 2 times a day, PRN, # 60 tablet, Refills 0, Tot. Refills 0, Maintenance, Anxiety, 04/03/23 8:20:00 EST, Route to Pharmacy Electronically, [facility]-[id number], Partial fill upon patient request if the [...] Refills, Maintenance, 04/03/23 8:17:00 EST, ER Tablet, [facility]-[id number], Partial fill upon patient request if the [...] 04/03/23 8:18:00 EST, Route to Pharmacy Electronically, [facility]-[id number], Partial fill upon patient request if the prescription is for a schedule... Start Date: 04/03/23 Status: Ordered prazosin 1 mg oral capsule 1 mg, Capsule, By Mouth, 04/29/23 21:09:00 EDT Start Date: 04/29/23 Stop Date: 04/29/23 Status: Completed topiramate 50 mg oral tablet = 150 mg, By Mouth, Daily at bedtime, # 90 tablet, 0 Refills, Maintenance, 04/03/23 8:18:00 EST, Tablet, [facility]-[id number], Partial fill upon patient request if the prescription is for a schedule II opioid drug., 167, cm, 04/02/23 20:... Start Date: 04/03/23 Status: Ordered traZODone 50 mg oral tablet 50 mg, By Mouth, Daily at bedtime, PRN, # 30 tablet, Refills 0, Tot. Refills 0, Maintenance, Sleep,04/03/23 8:19:00 EST, Route to Pharmacy Electronically, [facility]-[id number], Partialfill upon patient request if the prescription [...] Range]: 1 2 3 Height 168 cm (04/29/23 12:48 PM) Weight 144.5 kg (04/29/23 12:48 PM) Oxygen Saturation [94-100 %] 98 % (04/30/23 6:17 AM) 99 % (04/29/23 11:33 PM) 96 % (04/29/23 7:37 PM) Pulse Rate [55-90 bpm] 99 bpm *H* (04/30/23 6:17 AM) 81 bpm (04/29/23 11:33 PM) 99 bpm *H* (04/29/23 7:37 PM) Blood Pressure [90-138/55-84 mm Hg] 113/93mm Hg (04/30/23 6:17 AM) 106/55mm Hg (04/29/23 11:33 PM) 110/62mm Hg (04/29/23 9:07 PM) Respiratory Rate [16-30 br/min] 18 br/min (04/30/23 6:17 AM) 16 br/min (04/29/23 11:33 PM) 18 br/min (04/29/23 7:37 PM) Temperature [96.8-100.4 DegF] 98.8 DegF (04/29/23 12:48 PM) Mode of Delivery (Oxygen) Room air (04/30/23 6:17 AM) Room air (04/29/23 11:33 PM) Room air (04/29/23 7:37 PM) Blood pressure sites Arm, right (04/30/23 6:17 AM) Arm, right (04/29/23 11:33 PM) Arm, right (04/29/23 12:48 PM) Temperature Route Temporal (04/29/23 12:48 PM) Dry Weight 144.5 kg (04/29/23 12:48 PM) Weight Obtained Via Patient/family state d (04/29/23 12:48 PM) Dry Weight Obtained Via Patient/family s tated (04/29/23 12:48 PM) Social History Social History Type Response Smoking Status 10 or more cigarette s (1/2 pack or more)/day in last 30 days entered on: 09/07/18 Sex Patient Care team information Care Team Personnel Name: Garcia Baez RN Position: S RN Member Role: Primary Care Nurse Name: Live RNDiamond Position: [facility] SN RN Member Role: Primary Care Nurse Name: Leah Almonte RN Position: [facility] RN Member Role: Primary Care Nurse Name: Natasha Dickey RN Position: [facility] RN Member Role: Primary Care Nurse Name: Kellee Garvin RN Position: [facility] RN Member Role: Primary Care Nurse Name: Maegan Diaz RN Position: [facility] RN Member Role: Primary Care Nurse Name: Genesis Lea RN Position: [facility] RN Member Role: Primary Care Nurse Name: Nikki Hairston NP Position: [facility] PCO Associate Professional Member Role: PCP Address: Address: [address] [place] [address] Name: Alejandra Gilbert RN Position: [facility] RN Member Role: Primary Care Nurse Name: Zara Colon RN Position: [facility] RN Supv Member Role: Primary Care Nurse Name: Stefani Pinto RN Position: [facility] RN Member Role: Primary Care Nurse Name: Araceli Quevedo RN Position: S RN Member Role: Primary Care Nurse Name: Fatoumata Loyd RN Position: [facility] RN Member Role: Primary Care Nurse Name: Melissa Stapleton RN Position: [facility] RN Member Role: Primary Care Nurse Name: Ligia Stapleton RN Position: [facility] RN Member Role: Primary Care Nurse Name: Melissa Davison RN Position: S RN Member Role: Primary Care Nurse Name: Trinidad Ordonez RN Position: [facility] RN Member Role: Primary Care Nurse Name: Mariaelena Collazo RN Position: [facility] RN Member Role: Primary Care Nurse Name: Beatrice Pisano RN Position: [facility] RN Member Role: Primary Care Nurse Name: Shankar Man Position: S RN Member Role: Primary Care Nurse Name: Nikki Croft RN Position: [facility] RN Member Role: Primary Care Nurse Name: John Cuellar RN Position: [facility] RN Member Role: Primary Care Nurse Name: Christos Godoy RN Position: [facility] RN Member Role: Primary Care Nurse Care Team Related Persons Name: [employer] Address: [address] [address] Name: YULIYA MORA Address: home [address] [place] [address] Name: SUNDAY MORA Address: [place] [address]
--- OUTSIDE RECORDS SUMMARY | 2023-06-07 19:11 | XMS_ITS | Continuity of Care Document ---
Author Organization [facility] Address [address] [place] [address]- Care Team Providers Care On Air Director Name Role Phone Bela Dumont MD Primary Care Physician [phone] Encounter [facility] [place] Date(s): 07/25/19 - 07/25/[address] [address] [phone] Discharge Disposition: A-D/C Home Attending Physician: Irwin [...] Refills, Maintenance, 04/30/19 13:51:00 EDT, ER Tablet, [facility]/pharmacy #[id number], 175, cm, 04/30/19 12:12:00 EDT, Height, 107.27, kg, 03/18/19 12:26:00 EST, Dry Weight Start Date: 04/30/19 Status: Ordered escitalopram 20 mg oral tablet 1 tablet = 20 mg, By Mouth, Daily, # 30 tablet, 0 Refills, Maintenance, 04/30/19 13:47:00 EDT, Tablet, [facility]/pharmacy #[id number], 175, cm, 04/30/19 12:12:00 EDT, Height, 107.27, kg, 03/18/19 12:26:00 EST, Dry Weight Start Date: 04/30/19 Status: Ordered haloperidol 5 mg oral tablet See Instructions, 2 tablets PO QAM and 1 tablet PO QHS, # 90 tablet, Refills 0, Tot. Refills 0, Maintenance, 04/30/19 13:53:00 EDT, Instructions Replace Required Details, Route to Pharmacy Electronically, [facility]/pharmacy #[id number], 175, cm, 04/30/19 12:12:00... Start Date: 04/30/19 Status: Ordered lamotrigine 100 mg oral tablet 250 mg, 2.5, tablet, By Mouth, Daily at bedtime, # 75 tablet, Refills 0, Tot. Refills 0, Maintenance, 04/30/19 13:48:00 EDT, Route to Pharmacy Electronically, [facility]/pharmacy #[id number], 175, cm, 04/30/19 12:12:00 EDT, Height, 107.27, kg, 03/18/19 12:26:00 ES... Start Date: 04/30/19 Status: Ordered traZODone 100 mg oral tablet 100 mg, 1, tablet, By Mouth, Daily at bedtime, # 30 tablet, Refills 0, Tot. Refills 0, Maintenance,04/30/19 13:49:00 EDT, Route to Pharmacy Electronically, [facility]/pharmacy #[id number], 175, cm, 04/30/19 12:12:00 EDT, Height, 107.27, kg, 03/18/19 12:26:00 EST,... Start Date: 04/30/19 Status: Ordered Problem List Condition Effective Dates Status Health Status Inform ant Depression(Confirmed) Active Tobacco dependence(Confirmed) Active Vital Signs Most recent to oldest [Reference Range]: 1 Height 167 cm (07/25/19 9:16 PM) Weight 102 kg (07/25/19 9:16 PM) Oxygen Saturation [94-100 %] 95 % (07/25/19 9:16 PM) Pulse Rate [55-90 bpm] 109 bpm *H* (07/25/19 9:16 PM) Blood Pressure [90-138/55-84 mm Hg] 106/ 71mm Hg (07/25/19 9:16 PM) Respiratory Rate [16-30 br/min] 18 br/mi n (07/25/19 9:16 PM) Temperature [96.8-100.4 DegF] 99.0 DegF (07/25/19 9:16 PM) Mode of Delivery (Oxygen) Room air (07/25/19 9:16 PM) Blood pressure sites Arm, left (07/25/19 9:16 PM) Temperature Route Oral (07/25/19 9:16 PM) Dry Weight 104 kg (07/25/19 9:16 PM) Dry Weight Obtained Via Patient/family s tated (07/25/19 9:16 PM) Social History Social History Type Response Smoking Status 10 or more cigarette s (1/2 pack or more)/day in last 30 days entered on: 09/07/18 Sex
--- OUTSIDE RECORDS SUMMARY | 2023-06-07 19:11 | XMS_ITS | Continuity of Care Document ---
Author Organization [facility] Address [address] [place] [address]- Care Team Providers Care Lathe Operator Name Role Phone Anny Arnett Primary Care Physician [place] [facility] [place] - 10/17/[address] [address]- Encounter Diagnosis Suicidal ideation(Final) - 10/15/22 Borderline personality disorder(Final) - 10/15/22 Discharge Disposition: A-D/C Home Attending Physician: Parminder [...] 0 Refills, Maintenance, 10/10/22 10:08:00 EDT, Capsule, [facility] [place]-[id number], Partial fill upon patient request if the prescription is for a schedule II opioid drug., 168, cm, 10/10/22 9:07... Start Date: 10/10/22 Status: Ordered fluticasone 27.5 mcg/inh nasal spray 2 sprays, Nares, Both, Daily, PRN for allergy symptoms, # 10 Gm, 0 Refills, Maintenance, 10/12/22 4:42:00 EDT, [place], Partial fill upon patient request if the prescription is for a schedule II opioiddrug. Start Date: 10/12/22 Status: Ordered gabapentin 300 mg oral capsule 300 mg, By Mouth, Daily, # 30 capsule, Refills 0, Tot. Refills 0, Maintenance, 10/10/22 10:08:00 EDT, Route to Pharmacy Electronically, [facility] [place]-[id number], Partial fill upon patient request if the prescription is for a schedule II opio... Start Date: 10/10/22 Status: Ordered gabapentin 300 mg oral capsule 600 mg, Capsule, By Mouth, 10/17/22 9:00:00 EDT Start Date: 10/17/22 Stop Date: 10/17/22 Status: Completed gabapentin 300 mg oral capsule 300 mg, Capsule, By Mouth, 10/17/22 9:00:00 EDT Start Date: 10/17/22 Stop Date: 10/17/22 Status: Completed gabapentin 600 mg oral tablet [...] Maintenance, 10/10/22 10:08:00 EDT,Route to Pharmacy Electronically, [facility] [place]-[id number], Partial fill upon patient request if the [...] Refills, Maintenance, 10/10/22 10:10:00 EDT, DIS Tablet, [facility] [place]-[id number], Partial fill upon patient request if the [...] oral capsule 2 mg, Capsule, By Mouth, 10/16/22 21:00:00 EDT Start Date: 10/16/22 Stop Date: 10/16/22 Status: Completed Robitussin DM Liquid 5 mL, [...] Range]: 1 2 3 Height 168 cm (10/17/22 6:31 AM) 168 cm (10/15/22 8:53 PM) Weight 137 kg (10/17/22 6:31 AM) 137 kg (10/15/22 8:53 PM) Oxygen Saturation [94-100 %] 98 % (10/17/22 12:25 PM) 96 % (10/17/22 6:31 AM) 96 % (10/16/22 9:00 PM) Pulse Rate [55-90 bpm] 99 bpm *H* (10/17/22 12:25 PM) 93 bpm *H* (10/17/22 6:31 AM) 100 bpm *H* (10/16/22 9:00 PM) Body Mass Index [18.5-24.99 kg/m2] 48.54 kg/m2 *>HHI* (10/17/22 6:31 AM) Blood Pressure [90-138/55-84 mm Hg] 125/80mm Hg (10/17/22 12:25 PM) 111/65mm Hg (10/17/22 6:31 AM) 115/72mm Hg (10/16/22 9:58 PM) Respiratory Rate [16-30 br/min] 18 br/min (10/17/22 12:25 PM) 18 br/min (10/17/22 8:40 AM) 18 br/min (10/17/22 8:40 AM) Temperature [96.8-100.4 DegF] 98.3 DegF (10/17/22 12:25 PM) 97.5 DegF (10/17/22 6:31 AM) 98.9 DegF (10/16/22 9:00 PM) Mode of Delivery (Oxygen) Room air (10/17/22 12:25 PM) room air (10/17/22 6:31 AM) Room air (10/16/22 9:00 PM) Blood pressure sites Arm, left (10/16/22 10:49 AM) Arm, right (10/16/22 2:17 AM) Arm, right (10/15/22 8:53 PM) Temperature Route Temporal (10/17/22 12:25 PM) Temporal (10/17/22 6:31 AM) Temporal (10/16/22 9:00 PM) Dry Weight 137 kg (10/17/22 6:31 AM) 137 kg (10/15/22 8:53 PM) Social History Social History Type Response Smoking Status 10 or more cigarette s (1/2 pack or more)/day in last 30 days entered on: 09/07/18 Sex Patient Care team information Care Team Personnel Name: Natasha Dickey RN Position: S RN Member Role: Primary Care Nurse Name: Anny Arnett Position: [facility] Associate Professional Member Role: PCP Address: Address: [address] [facility] [place] [address]- [place] Name: Genesis Lea RN Position: [facility] RN Member Role: Primary Care Nurse Name: Blaire Solis RN Position: [facility] RN Member Role: Primary Care Nurse Name: Stefani Pinto RN Position: [facility] RN Member Role: Primary Care Nurse Name: Melissa Stapleton RN Position: [facility] RN Member Role: Primary Care Nurse Name: Ligia Stapleton RN Position: [facility] RN Member Role: Primary Care Nurse Name: Trinidad rOdonez RN Position: [facility] RN Member Role: Primary Care Nurse Name: Mariaelena Collazo RN Position: [facility] RN Member Role: Primary Care Nurse Name: Nikki Croft RN Position: [facility] RN Member Role: Primary Care Nurse Name: John Cuellar RN Position: [facility] RN Member Role: Primary Care Nurse Name: Christos Godoy RN Position: [facility] RN Member Role: Primary Care Nurse Name: Otoniel Ospina RN Position: [facility] ED RN W/OE and Tasks Member Role: Patient Care Provider Name: Parminder Villagran MD Position: [facility] ED Medicine MD Member Role: Admitting Physician Address: Address: [address] [facility] [place] [address]- Care Team Related Persons Name: [employer] Address: home [address] [place] [address] Name: YULIYA MORA Address: home [address] [place] [address] Name: SUNDAY MORA Address: [place] [address]
--- OUTSIDE RECORDS SUMMARY | 2023-06-07 19:11 | XMS_ITS | Continuity of Care Document ---
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 gabapentin, olanzapine, methylphenidate, lamotrigine, prazosin, topiramate.Her ethanol 25, salicylic acid less than 0.3, acetaminophen level 59--44--21. Discussed with poisoncontrol by admitting team. Patient is now status post anecdote-acetylcysteine.Ppatient has also been on ciwa and ativan for alcohol withdrawal but been scoring low. Seen by psych>>will need inpatient psych admit after medically cleared. ?? Patient has been medically stable. Electrolytes, renal function within normal range and stable. EKGwith no arrhythmia, QTc within normal limit. Patient has been??medically stable for dispo as per Psych. ? 01/11: Patient feeling slightly better. They continue with suicidal ideation. They are also complaining of BUE/hand tremors, mild. About 5 days since last alcohol use. They remain in hospital awaiting psych bed. ? 01/12: Psych bed search ongoing. As per Psych team, I was told that patient may require PT eval because they are using a rolling walker now. Rolling walker was ordered, PT saw patient and they agree patient may benefit. None of this precludes patient from going to Psych unit if bed is available however none was available at the end of the workday today. ?? 01/13: No new complaints. No beds yet. 01/14: No new complaints. No beds yet. Reached out to Psychiatry, unlikely to have any beds on the weekend at this point. CIWA stopped given ongoing stability. In the evening patient reporting dysuria, urinalysis obtained which was negative. ?? 01/15: No beds yet. Patient has been intermittently refusing food and drink, mentions desire to loseweight. Psychiatry / Forest Fire Officer both consulted for advice. Workup for dysuria is negative so far,patient is encouraged to take p.o. ?? 01/16: No further urinary symptoms. Patient blood work is stable. Per Psychiatry and Crisis, they may cancel the bed search and look for a respite bed instead. ?? 01/17: She is cleared for DC per Psychiatry. Patient has been stable and awaiting a respite bed. At 1657 I was informed she has a bed and can be DC. Psychiatry (Yan) will prescribe her meds to [facility] in [place]. ?? Assessment and Plan ? Suicidal behavior (R45.89):??. Overdose (T50.901A):??. Borderline personality disorder (F60.3):??. NATHAN (generalized anxiety disorder) (F41.1):??. 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 Major depressive disorder, recurrent (F33.9):??Psych on board: patient is here for suicide attempt in the setting of multiple mental illnesses as noted.: Per psychiatry notes (01/10): Fortunately they were able to seek help by calling CRISIS for an emergency evaluation, whereby, they were transported to the hospital for medical care. Although they did demonstrate help-seeking behaviors, they areconcerned that their suicide attempts increasingly become more lethal. Currently they endorse suicidal ideation, and, are concerned that they will try to find a way to hurt themselves more if they are discharged from the hospital. At this time they are advocating for in-patient level of psychiatric care. ?? -DC to respite -Psych meds have been prescribed by Psychiatrist (Dr. Heredia) to be adjusted under supervision?? -Follow up with PCP and Psychiatrist/Therapist ?? Alcohol use (Z78.9):??More than 5 days since last drink.??CIWA has been low,??had been complaining of some tremors, appears to be improving.?CIWA has been consistently low. ? History of ADHD (Z86.59):??History of ADHD reported, patient is on??methylphenidate??54 -Can continue under supervision of outside provider(s) ?? Severe obesity (E66.01):??Noted. This can be addressed once the other issues are??stabilized. ?? Eating disorder (F50.9):??The patient is concerned about their severe??obesity??and is interested in losing weight, however also mentions??an eating disorder, and has been intermittently??been refusing food or water.??They participate in online forums??with other??individuals??who also have??eating disorders, I have consulted??Forest Fire Officer and??Psychiatry??to get her??better medical advice about this. ?? -Psychiatry??informed -Nutrition consulted as well??for??advice, hold off on formal dietary intervention until Psychiatrically stabilized -In the meantime, atient encouraged to take adequate PO hydration, small portions of healthy food, and??can consder follow up ?? Dysuria (R30.0):??Patient mentions??mild suprapubic pain and dysuria,??dark- colored urine, this coincides with their refusal of food and drink.??Blood work and urinalysis both fairly unremarkable.??Resolved. ?? -Patient encouraged to take p.o.??hydration ?? Tobacco dependence (F17.200):??Noted, on nicotine patch. -Continue nicotine patch, would benefits counselor about this later on ?? Transgender (Z78.9):??Please note: Patient is F2M transgender and prefers they/them pronouns. They go by the name of Dudley . ? Please note, dictation software ([employer]) may have been used in the preparation of this note, and may have generated unintentional errors in speech recognition. If there are any questions going forward, please reach out for clarification. ? Objective Measurements?? Height: 168 cm (01/17/23) Weight: 138.9 kg (01/17/23) Body Mass Index:??49.21 kg/m2??Critical (01/17/23) ? Vital Signs?? Temperature: 98.6 DegF (01/17/23 16:00:00) Temperature Route: Oral (01/17/23 16:00:00) Pulse Rate: 75 bpm (01/17/23 16:00:00) Respiratory Rate: 18 br/min (01/17/23 16:00:00) Systolic Blood Pressure: 122 mm Hg (01/17/23 16:00:00) Diastolic Blood Pressure: 71 mm Hg (01/17/23 16:00:00) Blood pressure sites: Arm, right (01/17/23 16:00:00) Mean Arterial Pressure: 88 mm Hg (01/17/23 16:00:00) Pulse Pressure: 51 mm Hg (01/17/23 16:00:00) Oxygen Saturation: 96 % (01/17/23 16:00:00) Mode of Delivery (Oxygen): Room air (01/17/23 16:00:00) Early Warning Score: 0 (01/17/23 16:02:18) ? . Physical Exam Constitutional: Alert, in no acute distress. Head EENT: PERRL.??NCAT. Neck: Supple. No obvious LAD. Respiratory: CTAB. No use of accessory muscles. Cardiovascular: S1S2 present. No obvious JVD. Gastrointestinal: Abdomen soft, non-tender, non-distended. Bowel sounds present. Genitourinary: No CVA tenderness. Genital exam deferred. Extremities: No lower extremity pitting??edema. No cyanosis or clubbing. Neurologic: Alert, generally appropriate. Speech normal. No gross focal neurological deficits. Consultants Psych Nutrition PT Pending Results Add On Lab Order ordered on 01/06/2023 Post Discharge Care Discharge ?to respite, at approx 8 pm, 01/17/23 17:11:00 EST Results Discharge Labs BLOOD COUNT & DIFF WBC 7.8 k/mm3 ()?? 01/16/2023 04:05 RBC 5.02 m/mm3 ()?? 01/16/2023 04:05 Hgb 13.7 Gm/dL ()?? 01/16/2023 04:05 Hct 43.0 % ()?? 01/16/2023 04:05 MCV 85.7 femtoliters ()?? 01/16/2023 04:05 MCH 27.3 pg ()?? 01/16/2023 04:05 MCHC 31.9 g/dL (Low)?? 01/16/2023 04:05 Platelet Count 186 k/mm3 ()?? 01/16/2023 04:05 RDW-SD 39.4 femtoliters ()?? 01/16/2023 04:05 MPV 13.1 femtoliters (High)?? 01/16/2023 04:05 Nucleated RBC (Automated) 0.0 #/100 WBC'S ()?? 01/16/2023 04:05 Abs. NRBC 0.0 k/mm3 ()?? 01/16/2023 04:05 ?? CHEM GENERAL Sodium 141 mmol/L ()?? 01/16/2023 04:05 Potassium 4.2 mmol/L ()?? 01/16/2023 04:05 Chloride 108 mmol/L (High)?? 01/16/2023 04:05 Bicarbonate Level 23 mmol/L ()?? 01/16/2023 04:05 Anion Gap 10 ()?? 01/16/2023 04:05 Glucose Level 80 mg/dL ()?? 01/16/2023 04:05 BUN 15 mg/dL ()?? 01/16/2023 04:05 Creatinine-Blood 0.7 mg/dL ()?? 01/16/2023 04:05 Estimated GFR Creatinine 122 ML/MIN/1.73 M2 ()?? 01/16/2023 04:05 Calcium 9.5 mg/dL ()?? 01/16/2023 04:05 Magnesium 1.9 mg/dL ()?? 01/07/2023 00:18 Protein, Total 6.1 Gm/dL (Low)?? 01/08/2023 05:52 Albumin 4.0 Gm/dL ()?? 01/08/2023 05:52 AG Ratio 1.9 ()?? 01/08/2023 05:52 Alkaline Phosphatase 84 units/L ()?? 01/08/2023 05:52 AST (SGOT) 17 units/L ()?? 01/08/2023 05:52 ALT (SGPT) 30 units/L ()?? 01/08/2023 05:52 Bilirubin, Total 0.2 mg/dL ()?? 01/08/2023 05:52 Bilirubin, Direct <0.2 mg/dL ()?? 01/07/2023 13:02 Bilirubin, Indirect Direct bilirubin is less than the measureable limit. Therefore, indirect mg/dL ()?? 01/07/2023 13:02 ?? COAG INR 1.1 ()?? 01/07/2023 09:51 Protime (PT) 11.3 seconds ()?? 01/07/2023 09:51 ?? ENDOCRINE/TUMOR MARKER TSH 1.60 uIU/mL ()?? 01/06/2023 05:00 ? HEME OTHER Hold Lavender Top SPECIMEN DISCARDED AFTER 24 HOURS. ()?? 01/06/2023 11:44 ? TOXICOLOGY/TDM Cannabinoid Screen, Urine NONE DETECTED ()?? 01/09/2023 15:07 Cocaine Metabolite Screen, Urine NONE DETECTED ()?? 01/09/2023 15:07 Opiate Screen, Urine NONE DETECTED ()?? 01/09/2023 15:07 Acetaminophen Level 21 mg/L ()?? 01/06/2023 05:00 ?? UA/URINALYSIS Appear/Color, Urine LIGHT YELLOW ()?? 01/14/2023 22:32 Specific [place], Urine 1.015 ()?? 01/14/2023 22:32 pH, Urine 6.5 ()?? 01/14/2023 22:32 Albumin, Urine NEGATIVE ()?? 01/14/2023 22:32 Glucose, Urine NEGATIVE ()?? 01/14/2023 22:32 Ketones, Urine NEGATIVE ()?? 01/14/2023 22:32 Bilirubin, Urine NEGATIVE ()?? 01/14/2023 22:32 Hemoglobin, Urine NEGATIVE ()?? 01/14/2023 22:32 Nitrite, Urine NEGATIVE ()?? 01/14/2023 22:32 Leukocyte, Urine NEGATIVE ()?? 01/14/2023 22:32 Urobilinogen NORMAL mg/dL ()?? 01/14/2023 22:32 WBC's, Urine 2 /HPF ()?? 01/14/2023 22:32 RBC's, Urine 2 /HPF ()?? 01/14/2023 22:32 Squamous Epith 4 /HPF ()?? 01/14/2023 22:32 Hold Urine Culture Testing available 48 hours from time of collection. ()?? 01/14/2023 22:32 ? VIROLOGY Influenza A PCR NEGATIVE ()?? 01/16/2023 17:40 Influenza B PCR NEGATIVE ()?? 01/16/2023 17:40 RSV PCR NEGATIVE ()?? 01/16/2023 17:40 COVID-19 PCR Specimen Source NASAL ()?? 01/16/2023 17:40 COVID-19 PCR Result NEGATIVE ()?? 01/16/2023 17:40 ? Microbiology ?? COVID-19, RSV, and Flu A/B, Rapid PCR?? Completed?? Source: Nasopharyngeal Body Site: Nasopharyngeal Collected Dt/Tm: 01/16/2023 17:20 Last Updated Dt/Tm: 01/16/2023 18:55 ? 40??minutes spent on discharge * Shankar German RN: PERFORM Event Display: Patient Education/Instruction Authored Date: [id number] Inpatient Adult Discharge Instructions [address] [address] Name: JORGE WALTER : 2000 Visit: 01/06/2023 03:42:00 Current Date: 01/17/2023 17:23 Account: [id number] Inpatient Adult Discharge Instructions We would like [...] and their families. Surveys are administered by [employer] ?? If further treatment with your primary care physician or another doctor is recommended, it is important for you to keep the appointment. Call your primary care physician or return to the Emergency Department immediately if your condition worsens, fails to improve, or new symptoms develop. If you need to find a doctor, you can call [facility] [employer] for a referral at [phone] or toll free at [phone] or log in to [email or web address].. ?? [facility], in keeping with [facility] guidance, no longer requires face masks for [...] a health care sharonda of your choosing. [employer] is a website that allows you to securely view your medical information including your hospital discharge summary, office visit summaries, medications and follow-up visits. You can also request appointments, renew medications, and request access to your medical information using a health care sharonda of your choosing, or just ask a question. You can enroll at [email or web address] or register during your next office visit. You have been discharged from [facility], Patient Care Unit: M5. If you have any questions regarding these instructions after you leave, please call us and we will be happy to assist you. [facility] Your Care Team Attending Physician Abdi Ng MD Consulting Providers Rosario Heredia MD, MD, Deepika Discharging Providers Abdi Ng MD Reason for Admission OVERDOSE Your Diagnosis Overdose Major depressive disorder, recurrent Severe obesity Transgender Borderline personality disorder Trauma and stressor-related disorder NATHAN (generalized anxiety disorder) Suicidal behavior History of ADHD Tobacco dependence Alcohol use Eating disorder Dysuria Tests Performed Below is a partial list of the tests performed during your hospitalization. You may have had other tests and procedures not included in this list. Please discuss all test results with your provider. Acetaminophen Level Basic Metabolic Panel Cannabinoid Urine Screen CBC Cocaine Urine Screen Comprehensive Metabolic Panel COVID-19, RSV, and Flu A/B, Rapid PCR HOLD LAVENDER TUBE INR LFT's Liver Function Panel Mg Level Opiate Screen Urine TSH Urinalysis w/hold for Urine Culture Primary Care Provider Katie RILEY, Narda Fonseca Advance Directive Health Care Proxy on File No Patient refuses to discuss Discharge Vitals Temperature: 98.6 DegF Height: 168 cm Pulse Rate: 75 bpm Weight: 138.9 kg Respiratory Rate: 18 br/min Body Mass Index:??49.21 kg/m2??Critical Systolic Blood Pressure: 122 mm Hg Body surface area: 2.55 Diastolic Blood Pressure: 71 mm Hg ?? Oxygen Saturation: 96 % ?? Studies Pending All tests and labs ordered during this hospital stay have been completed unless listed below. Please discuss all pending results with your provider listed above in these instructions. ?? Add On Lab Order What to do next Instructions From Your Doctor Discharge Orders Discharge Medications JORGE WALTER :2000 Visit Date:01/06/2023 Medications: Please continue your medications until treatment is completed or stopped by your provider. Medications not listed below should be discontinued. Discuss any questions related to medications with your provider. What How Much When Instructions Next Dose New Folic Acid (folic acid 1 mg oral tablet) 1 tab(s) Oral Daily Duration: 7 Days Pickup at [place] [address] New Lidocaine Topical (lidocaine 5% topical film) See instructions 1 patch Topically Daily ?? Pickup at [place] [address] New Nicotine (nicotine 21 mg-14 mg-7 mg transdermal film, extended release) See instructions place one patch on left arm daily ?? Pickup at [place] [address] New Pyridoxine (pyridoxine 50 mg oral tablet) 1 tab(s) Oral Daily Duration: 7 Days Pickup at [place] [address] Changed Duloxetine (duloxetine 30 mg oral enteric coated capsule) 1 capsule Oral Daily Duration: 7 Days Pickup at [place] [address] Changed Prazosin (prazosin 1 mg oral capsule) 1 capsule Oral Daily at Bedtime Duration: 7 Days Pickup at [place] [address] Changed Topiramate (topiramate 25 mg oral tablet) 1 tab(s) Oral Daily Duration: 7 Days Pickup at [place] [address] Pharmacy Information [place] [address]: [address] [place] [address] [phone] ?? What How Much When Comments Stop Taking Desmopressin (desmopressin 0.2 mg oral tablet) 2 tab(s) Oral Daily at Bedtime Stop Taking DiphenhydrAMINE (diphenhydrAMINE 50 mg oral capsule) 1 capsule Oral Twice a day as needed for Anxiety Stop Taking Gabapentin (gabapentin 300 mg oral capsule) 300 Milligram Oral Daily Stop Taking Gabapentin (gabapentin 600 mg oral tablet) 600 Milligram Oral Daily at Bedtime Stop Taking Haloperidol (haloperidol 5 mg oral tablet) 1 tab(s) Oral Twice a day as needed for Anxiety Stop Taking Lamotrigine 75 Milligram Oral Daily Stop Taking Methylphenidate (methylphenidate 54 mg oral tablet, extended release) 54 Milligram Oral Daily Stop Taking Olanzapine (olanzapine 5 mg oral tablet, disintegrating) 5 Milligram Oral Daily as needed for Anxiety Stop Taking Ondansetron (Zofran ODT 4 mg oral tablet, disintegrating) 4 Milligram Oral 3 times a day as needed for Nausea Test Results Below is a partial list of the most recent Laboratory test results done prior to this discharge. You may have had other tests and procedures not included in this list. Please discuss all test resultswith your provider. Acetaminophen Level (01/06/2023) ???Acetaminophen Level - 21 mg/L Basic Metabolic Panel (01/16/2023) ???Sodium - 141 mmol/L???Potassium - 4.2 mmol/L???Chloride - 108 mmol/L???Bicarbonate Level - 23 mmol/L???Anion Gap - 10???Glucose Level - 80 mg/dL???BUN - 15 mg/dL???Creatinine-Blood - 0.7 mg/dL???Estimated GFR Creatinine - 122 ML/MIN/1.73 M2???Calcium - 9.5 mg/dL Cannabinoid Urine Screen (01/09/2023) ???Cannabinoid Screen, Urine - NONE DETECTED CBC (01/16/2023) ???WBC - 7.8 k/mm3???RBC - 5.02 m/mm3???Hgb - 13.7 Gm/dL???Hct - 43.0 %???MCV - 85.7 femtoliters???MCH - 27.3 pg???MCHC - 31.9 g/dL???Platelet Count - 186 k/mm3???RDW-SD - 39.4 femtoliters???MPV - 13.1 femtoliters???Nucleated RBC (Automated) - 0.0 #/100 WBC'S???Abs. NRBC - 0.0 k/mm3 Cocaine Urine Screen (01/09/2023) ???Cocaine Metabolite Screen, Urine - NONE DETECTED Comprehensive Metabolic Panel (01/08/2023) ???Sodium - 141 mmol/L???Potassium - 4.5 mmol/L???Chloride - 108 mmol/L???Bicarbonate Level - 23 mmol/L???Anion Gap - 10???Glucose Level - 79 mg/dL???BUN - 9 mg/dL???Creatinine-Blood - 0.7 mg/dL???Estimated GFR Creatinine - 124 ML/MIN/1.73 M2???Calcium - 9.3 mg/dL???Protein, Total - 6.1 Gm/dL???Albu min - 4.0 Gm/dL???AG Ratio - 1.9???Alkaline Phosphatase - 84 units/L???AST (SGOT) - 17 units/L???ALT (SGPT) - 30 units/L???Bilirubin, Total - 0.2 mg/dL COVID-19, RSV, and Flu A/B, Rapid PCR (01/16/2023) ???Influenza A PCR - NEGATIVE???Influenza B PCR - NEGATIVE???RSV PCR - NEGATIVE???COVID-19 PCR Specimen Source - NASAL???COVID-19 PCR Result - NEGATIVE HOLD LAVENDER TUBE (01/06/2023) ???Hold Lavender Top - SPECIMEN DISCARDED AFTER 24 HOURS. INR (01/07/2023) ???INR - 1.1???Protime (PT) - 11.3 seconds LFT's (01/07/2023) ???Protein, Total - 6.4 Gm/dL???Albumin - 3.9 Gm/dL???Alkaline Phosphatase - 87 units/L???AST (SGOT) - 19 units/L? ?ALT (SGPT) - 36 units/L? ?Bilirubin, Total - 0.2 mg/dL? ?Bilirubin, Direct - <0.2 mg/dL???Bilirubin, Indirect - Direct bilirubin is less than the measureable limit. Therefore, indirect Liver Function Panel (01/07/2023) ???Protein, Total - 6.1 Gm/dL???Albumin - 3.8 Gm/dL???Alkaline Phosphatase - 77 units/L???AST (SGOT) - 17 units/L? ?ALT (SGPT) - 38 units/L? ?Bilirubin, Total - 0.3 mg/dL? ?Bilirubin, Direct - <0.2 mg/dL???Bilirubin, Indirect - Direct bilirubin is less than the measureable limit. Therefore, indirect Mg Level (01/07/2023) ???Magnesium - 1.9 mg/dL Opiate Screen Urine (01/09/2023) ???Opiate Screen, Urine - NONE DETECTED TSH (01/06/2023) ???TSH - 1.60 uIU/mL Urinalysis w/hold for Urine Culture (01/14/2023) ???Appear/Color, Urine - LIGHT YELLOW???Specific [place], Urine - 1.015???pH, Urine - 6.5???Albumin, Urine - NEGATIVE???Glucose, Urine - NEGATIVE???Ketones, Urine - NEGATIVE???Bilirubin, Urine - NEGATIVE???Hemoglobin, Urine - NEGATIVE???Nitrite, Urine - NEGATIVE???Leukocyte, Urine - NEGATIVE???Urobi linogen - NORMAL???WBC's, Urine - 2 /HPF???RBC's, Urine - 2 /HPF???Squamous Epith - 4 /HPF???Hold Urine Culture - Testing available 48 hours [...] I fully understand and agree that [facility] accepts no responsibility for all [...] encouraged to send valuables and belongings home. ? Other Discharge Information ? Pulmonary Rehab Status?? [...] are strongly encouraged to quit. Please call [facility] [employer] [facility] at [phone] or [phone] ([phone]) or log in to [email or web address] for referrals to smoking cessation programs. ?? 713 Suicide & Crisis Lifeline is available 04/09 if you or someone you know needs to find a reason to keep living. By calling 265 you'll be connected to a skilled, trained counselor at a crisis center in your area. INPATIENT DISCHARGE INSTRUCTIONS SIGNATURE JORGE POLANCO Location:[facility] Registration Date and Time:01/06/2023 03:42 EST Primary Care Physician: Katie RILEY, Nadra Fonseca, Attending Physician: Berenice ESTES, Abdi Machado, I JORGE WALTER, have received the above patient education materials/instructions and have verbalizedunderstanding. If ambulance or transport services are being used I further acknowledge being given a choice of service. ?? If you need to contact me, please call me at this number: . Patient/Auto Service Dispatcher Name: Patient/Auto Service Dispatcher Signature: Relationship to Patient: Witness Name/Signature: Date: * Event Display: Lab Data & Pts Medical History Authored Date: * Event Display: Lab Data & Pts Medical History Authored Date: Admission evaluation note * Ernie ESTES, [facility]: MODIFY, MODIFY, PERFORM, MODIFY Event Display: Admission Note Authored Date: Patient: ??JORGE WALTER ? Age:??22 Years?Sex:??Female?:??2000?? History of Present Illness 22-year-old transgender, past medical history of personality disorder, depression, frequent suicideattempt, tobacco dependence and obesity. ??Patient??discharged from hospital??on 01/03??after admission for??suicide attempt. ??Presenting on 01/06??with??suicide attempt again. ?? Patient has recent admission on 12/27-01/03 with intentional overdose with unknown substance most likely her home medications.?? At this time was admitted for ICU for monitoring.?? At this time U tox was positive for cannabinoids. She was discharged to??a program??which she did not like and she went home??on Sunday.?? She was doing good and??was motivated however later on Sunday??she started to decompensate again.?? She tried to cut her??wrist??and I can see in examine multiple??scratches??but nothing is deep.?? She also took all of her??7 days home medications together.?? She was only drinking alcohol??and eating chips.?? Patient still have active suicide??ideation.?? In presentation??patient is tachycardiac and hypotensive.?? Blood workup with WBC 7.4, platelet 144, bicarb 19, creatinine 0.8.?? Ethanol 25, salicylic acid less than 0.3, acetaminophen level 59--44--21.?? Flu A, B,RSV and COVID-negative. Case was discussed with poison control??and recommended EKG every 2 while tachycardic ?? Review of Systems All review of systems negative except above Objective Vital Signs?? Temperature: 97.7 DegF (01/06/23 01:48:00) Temperature Route: Oral (01/06/23 01:48:00) Pulse Rate:??122 bpm??High (01/06/23 02:16:00) Heart Rate Monitored:??118 bpm??High (01/06/23 05:00:00) Respiratory Rate: 25 br/min (01/06/23 05:00:00) Systolic Blood Pressure: 120 mm Hg (01/06/23 05:00:00) Diastolic Blood Pressure: 57 mm Hg (01/06/23 05:00:00) Blood pressure sites: Arm, left (01/05/23 22:45:00) Mean Arterial Pressure: 62 mm Hg (01/06/23 02:16:00) Pulse Pressure: 63 mm Hg (01/06/23 05:00:00) Oxygen Saturation: 96 % (01/06/23 04:00:00) Liters per Minute: 2 L/min (01/06/23 02:16:00) Mode of Delivery (Oxygen): Room air (01/06/23 04:00:00) Early Warning Score: 5 (01/06/23 06:57:53) ? Intake/Output? 01/06 03:42 01/06 07:00 01/05 07:00 01/04 07:00 01/03 07:00 ?? 01/06 07:57 01/06 07:57 01/06 06:59 01/05 06:59 01/04 06:59 Intake ?100 ?100 ?0 ?0 ?0 Output ?0 ?0 ?0 ?0 ?0 Net Total ?100 ?100 ?0 ?0 ?0 ? Physical Exam General?NAD, AAO HEENT?PERRLA, oropharynx clear, moist mucus membranes Pulm?CTA bilaterally, no wheezes/rhonchi/rales CV?RRR, +S1/S2, no murmurs/rubs GI?Soft, nontender, nondistended, no organomegaly, bowel sounds are present Neuro?Moves all extremities MS?no obvious deformity Psych?Mood appropriate to situation? Left wrist scratches Assessment/Plan ?? 22-year-old transgender, past medical history of personality disorder, depression, frequent suicide attempt, tobacco dependence and obesity. ??Patient??discharged from hospital??on 01/03??after admission for??suicide attempt. ??Presenting on 01/06??with??suicide attempt again. ?? Suicide attempt Depression She tried to cut her??wrist??and I can see??in examine multiple??scratches??but nothing is deep.?? She also took all of her??7 days home medications together.?? She was only drinking alcohol??and eating chips.?? Patient still have active suicide??ideation.?? In presentation??patient is tachycardiacand hypotensive.?? Acetaminophen level 59--44--21-less likely to have toxicity at this point, discussing with poison control ?? -Suicide precautions -Patient cannot leave AMA -Psych consult -Poison control recommended EKG every 2 hours till patient not tachycardic, potassium more than 4 and magnesium more than 2.?? Monitor for serotonin syndrome.?? Continue ekg monitor tech -Poison control did not recommend bicarb however if QRS is getting more wide consider bicarb. -Will re-discuss case with poison control -Holding home medication -Unclear why patient on desmopressin, watching sodium ?? Sinus tachycardia -Patient has been n.p.o. with poor oral intake??will give fluid bolus and see??if that will help heart rate.?? I think tachycardia related to??alcohol withdrawal. -Follow-up??TSH ?? Alcohol use -Watching for withdrawal, CIWA with lorazepam ?? Nicotine dependence: Nicotine patch Mild thrombocytopenia: Less likely to have HIT??at this point, watching closely. ??Most likely due to??alcohol??use ?? Full code Lovenox ?? Update Called poison control??they recommend the following EKG every 4??to 6 hours No problem with using lorazepam to treat??possible alcohol withdrawal Start N-acetylcysteine??for possible acetaminophen overdose??given patient is uncertain To repeat liver function test,??INR and acetaminophen level 2 hours before??ending the last bag of N-acetylcysteine Histories Allergies Allergies ?(Active and Proposed Allergies [...] in last 6 months: No. ??Gender identity: Tjeqyd-zo-Pebd (FTM)/ Transgender Male/Trans Man. ??Preferred pronoun: He/him. Substance Abuse Details:??Use: Never. Tobacco Details:??Use: 10 or more cigarettes (1/2 pack or more)/day in last 30 days. Electronic Cigarette/Vaping Details:??Electronic Cigarette Use: Never. ? Family History Father: Diabetes mellitus; Hypertension Mother: Cancer; Diabetes mellitus; Hypertension Sister: Depression ? Medications Home Medications Desmopressin (desmopressin 0.2 mg [...] 25 mg oral tablet)?25?Milligram?By Mouth?Daily ? Results Abnormal Labs ?? BLOOD COUNT & DIFF ??Abs. NRBC ??0.0 k/mm3 () ??01/06/2023 05:00 ??MCHC ??31.9 g/dL (Low) ??01/06/2023 05:00 ??MPV ??13.5 femtoliters (High) ??01/06/2023 05:00 ??Nucleated RBC (Automated) ??0.0 #/100 WBC'S () ??01/06/2023 05:00 ??Platelet Count ??144 k/mm3 (Low) ??01/06/2023 05:00 ??RDW-SD ??41.1 femtoliters () ??01/06/2023 05:00 ? CHEM GENERAL ??AG Ratio ??1.6 () ??01/06/2023 05:00 ??ALT (SGPT) ??48 units/L (High) ??01/06/2023 05:00 ??Bicarbonate Level ??19 mmol/L (Low) ??01/06/2023 05:00 ??Estimated GFR Creatinine ??112 ML/MIN/1.73 M2 () ??01/06/2023 05:00 ? Note: Critical results are displayed in red. ? EKG study * Event Display: ECG 12-Lead Authored Date: Please click on pdf link to open report * Event Display: ECG 12-Lead Authored Date: Ventricular Rate: 98 BPM Atrial Rate: 98 BPM P-R Interval: 180 ms QRS Duration: 92 ms Q-T Interval: 344 ms QTC Calculation(Bazett): 439 ms P Nova: 56 degrees R Nova: 58 degrees T Nova: 32 degrees Normal sinus rhythm Normal ECG When compared with ECG of 07-JAN-2023 09:44, No significant change was found Confirmed by EMMANUEL CHESTER MD () on 01/08/2023 2:39:56 PM [place]: EMMANUEL CHESTER MD * Event Display: ECG 12-Lead Authored Date: Please click on pdf link to open report * Event Display: ECG 12-Lead Authored Date: Ventricular Rate: 78 BPM Atrial Rate: 78 BPM P-R Interval: 206 ms QRS Duration: 92 ms Q-T Interval: 388 ms QTC Calculation(Bazett): 442 ms P Nova: 78 degrees R Nova: 64 degrees T Nova: 33 degrees Normal sinus rhythm Normal ECG When compared with ECG of 06-JAN-2023 12:41, No significant change was found Confirmed by EMMANUEL CHESTER MD ([id number]) on 01/07/2023 10:21:00 PM [place]: EMMANUEL CHESTER MD * Event Display: ECG 12-Lead Authored Date: Please click on pdf link to open report * Event Display: ECG 12-Lead Authored Date: Ventricular Rate: 103 BPM Atrial Rate: 103 BPM P-R Interval: 196 ms QRS Duration: 104 ms Q-T Interval: 358 ms QTC Calculation(Bazett): 468 ms P Nova: 54 degrees R Nova: 57 degrees T Nova: 30 degrees Sinus tachycardia Otherwise normal ECG When compared with ECG of 06-JAN-2023 09:33, No significant change was found Confirmed by NEMO ESTES, [facility] ([id number]) on 01/07/2023 10:20:51 PM [place]: [facility] [place] [facility] * Khadra Jay RN: VERIFY, PERFORM, SIGN Event Display: Progress Note Hospital Authored Date: Patient: JORGE WALTER Age: 22 years Sex: Female : 2000 Associated Diagnoses: None Author: Khadra Jay RN Findings Problem Related to Alteration in Psychosocial : Alteration in Psychosocial Function/new 01/16/2023 21:00 EST Alteration in Psychosocial Related to Acute Alcohol Withdrawal, Ineffective coping, Suicidal Goals & Outcomes, Psychosocial Psychosocial support will be provided to Pt/S.O. as needed, Pt will identify stressors leading up to event, Pt will state importance of adhering to medication regime, Pt/caregiver will be offered appropriate resources & support, Pt/caregiver will express feelings/needs/fears /concerns, Pt/caregiver will maintain/obtain psychological stability, Pt/caregiver will participate in coping skill counseling, Pt will be free from anxiety, Pt will describe positive result from new behavior, Pt will identify & initiate alternate coping strategies, Pt will identify available resources/support system, Pt will identify own maladaptive coping patterns, Pt successfully withdraws with minimal side effects, Pt will be free from withdrawal symptoms, Pt will detoxify from substance, Pt will participate in recovery groups, Pt will show motivation for recovery, Pt will verbalize disease concept & chemical dependency, Pt will verbalize ways to prevent relapse, Pt will be monitored for suicidal ideation, Pt will manage stressors w/out self injury, Patient willcomplete Saftery Plan Prior to discharge Interventions, Psychosocial Assess psychosocial needs, Assess readiness [...] Provide verbal limits if pt's behavior escalates, Resolved problem, Interventions no longer in effect, Identify complications of chronic alcohol use, Assess for complications related to acute alcohol withdrawal, Determine pt's stage of withdrawal as per CIWA scale, Encourage pt to continue to detox, Initiate & maintain Seizure Precautions, Minimize stimulation, Minimize stressors, Offer clergy, AA sponsor, counselor support, Offer support to pt/S.O. during acute alcohol withdrawal, Transfer pt to monitored area if advances to Stage 3 CIWA, Do not provide more information than pt can handle, Assess available/useful past/present coping mechanisms, Assess coping skills & provide teaching as needed, Assess decision making skills/problem solving abilities, Assess stressors & available/useful coping mechanisms, Avoid false reassurances, Convey feelings of acceptance & understanding, Encourage pt to communicate feelings w/S.O.s, Encourage pt to seek info re: coping skills/strategies, Instruct in need for adequate rest & balanced diet, Provide info pt wants/needs, Teach use of relaxation/exercise/diversional activity, Encourage attendance at Recovery & 12 step meetings, Help pt analyze pros & cons of substance abuse, Monitor hygiene & nutritional intake, Teach pt about the disease of substance abuse, Teach pt alternate ways to deal with stress, Initiate constant turret punch operator while pt is actively suicidal, Assess environment for safety, Assess pt's suicidal ideation, Monitor effectiveness of anti-depressant medication BH Goals/Interventions, Psychosocial Yes Psychosocial, Problem Start 01/06/2023 7:00 Reviewed Plan with, Psychosocial Patient Patient Progression, Psychosocial Pt progressing according to plan . Nursing Data Vital Signs : VITAL SIGNS SECTION 01/16/2023 20:38 EST Temperature 98.4 DegF Temperature Route Oral Pulse Rate 90 bpm Respiratory Rate 18 br/min Systolic Blood Pressure 140 mm Hg H Diastolic Blood Pressure 66 mm Hg Blood pressure sites Arm, right Mean Arterial Pressure 91 mm Hg Pulse Pressure 74 mm Hg Oxygen Saturation 98 % Mode of Delivery (Oxygen) Room air . Evaluation Pt is A&o x4, no longer on ekg monitor tech. lungs are clear on room air. They have a constant turret punch operator in room due to suicidal ideation. pt confirmed today has been a good day, had no complains.took all pm meds with no issues. no new self harm signs or symptoms observed. skin is warm and dry,normal peripheral pulses felt. pt encouraged to use call [facility] to call for help when needed. will continue to monitor throughout shift. * Berenice ESTES, Abdi Machado: PERFORM Event Display: Progress Note Hospital Authored Date: Patient: ??JORGE WALTER ? Age:??22 Years?Sex:??Female?:??2000?? Subjective 01/11:??Patient??feeling slightly better. ??They continue with??suicidal ideation. ??They are also complaining of??BUE/hand tremors, mild.?? About 5 days since last alcohol use.?? They remain in hospital awaiting psych bed. ? 01/12:??Psych bed search ongoing.?? As per Psych team,??I was told??that??patient may require PT eval??because they are using a??rolling walker now.?? Rolling walker was ordered, PT saw patient and they agree patient may benefit.?? None of this precludes patient from going to Psych??unit??if bed is available??however none was available at the end of the workday today. ?? 01/13: No new complaints. No beds yet. 01/14:??No new complaints. No beds yet.?Reached out to Psychiatry,??unlikely to have any beds??onthe weekend??at this point. CIWA stopped given ongoing stability.?? In the evening patient reporting dysuria, urinalysis obtained which was negative. ?? 01/15:??No beds yet.?? Patient??has been intermittently refusing food and drink, mentions desire to lose weight.?? Psychiatry /?? Forest Fire Officer??both consulted for advice.?? Workup for dysuria is negative so far,??patient is encouraged to??take p.o. ?? 12/5:??No??further urinary symptoms. ??Patient??blood work is stable. ??Per Psychiatry and Crisis,??they may cancel the bed search??and??look for a respite bed instead. ?? Review of Systems Constitutional:??denies F/C Cardiovascular:?no CP or palpitations Respiratory:??no SOB or significant cough Gastrointestinal:??no N/V/D :??Mild dysuria and dark urine, denies??malodorous??urine or??discharge Objective Measurements?? Height: 168 cm (01/16/23) Weight: 138.9 kg (01/16/23) Body Mass Index:??49.21 kg/m2??Critical (01/16/23) ? Vital Signs?? Temperature: 98.4 DegF (01/16/23 16:00:00) Temperature Route: Oral (01/16/23 16:00:00) Pulse Rate:??93 bpm??High (01/16/23 16:00:00) Respiratory Rate: 20 br/min (01/16/23 16:00:00) Systolic Blood Pressure: 125 mm Hg (01/16/23 16:00:00) Diastolic Blood Pressure: 75 mm Hg (01/16/23 16:00:00) Blood pressure sites: Arm, right (01/16/23 16:00:00) Mean Arterial Pressure: 92 mm Hg (01/16/23 16:00:00) Pulse Pressure: 50 mm Hg (01/16/23 16:00:00) Oxygen Saturation: 98 % (01/16/23 16:00:00) Mode of Delivery (Oxygen): Room air (01/16/23 16:00:00) Early Warning Score: 0 (01/16/23 16:01:51) ? Pain Scores 1 - 10 Pain Scale Score: 3 (20:57) ? Intake/Output? 01/06 03:42 01/16 07:00 01/15 07:00 01/14 07:00 01/13 07:00 ?? 01/16 17:17 01/16 17:17 01/16 06:59 01/15 06:59 01/14 06:59 Intake ? 4900 ?0 ?360 ?420 ?0 Output ? 4850 ?0 ?800 ?200 ?0 Net Total ? 50 ?0 ? -440 ?220 ?0 ? Urine Count ? 15 ?0 ?0 ?2 ?1 ? Physical Exam Constitutional: Alert, in no acute distress. Head EENT: PERRL.??NCAT. Neck: Supple. No obvious LAD. Respiratory: CTAB. No use of accessory muscles. Cardiovascular: S1S2 present. No obvious JVD. Gastrointestinal: Abdomen soft, non-tender, non-distended. Bowel sounds present. Genitourinary: No CVA tenderness. Genital exam deferred. Extremities: No lower extremity pitting??edema. No cyanosis or clubbing. Neurologic: Alert, generally appropriate. Speech normal. No gross focal neurological deficits. _ Inpatient Medications Medications (17) Active SCHEDULED: (12) Duloxetine 30 mg Capsule (DULoxetine Capsule) ??30 mg, By Mouth, Daily Enoxaparin 40 mg Inj (Enoxaparin Inj) ??40 mg 0.4 mL, Subcutaneous Injection, Daily Folic Acid 1 mg Tablet (Folic Acid Tablet) ??1 mg, By Mouth, Daily Lidocaine 5% Topical Patch (Lidocaine 5% Patch) ??1 each, Topically, Daily Multivitamin Tablet ??1 tablet, By Mouth, Daily Nicotine 21 mg / 24 hour Patch (Nicotine Topical) ??21 mg, Topically, Daily Prazosin 1 mg Capsule (prazosin 1 mg oral capsule) ??1 mg, By Mouth, Daily at bedtime Pyridoxine 50 mg Tablet (Pyridoxine Tablet) ??50 mg, By Mouth, Daily Remove Patch (Remove ??Patch) ??1 each, Topically, Daily Remove Patch (Remove Lidocaine Patch) ??1 each, Topically, Daily at bedtime Thiamine 100 mg Tablet (Thiamine Tablet) ??100 mg, By Mouth, 2 times a day Topiramate 25 mg Tablet (Topiramate Tablet) ??25 mg, By Mouth, Daily CONTINUOUS: (0) PRN: (5) Acetaminophen 325 mg Tablet (Tylenol 325 mg oral tablet) ??650 mg, By Mouth, Every 6 hours diphenhydrAMINE 50 mg/mL Inj (Benadryl Inj) ??50 mg 1 mL, IV Push, Daily Haloperidol Lactate 5 mg/mL Inj (1 mL) (Haloperidol LACTATE Inj) ??5 mg 1 mL, IV Push Slowly, Every6 hours HydrOXYzine HCL 10mg Tablet (HydrOXYzine HCL Tablet) ??50 mg, By Mouth, 4 times a day Nicotine 2 mg Gum (Nicotine Gum) ??2 mg, Chew, Every hour ? Results Recent Labs BLOOD COUNT & DIFF WBC 7.8 k/mm3 ()?? 01/16/2023 04:05 RBC 5.02 m/mm3 ()?? 01/16/2023 04:05 Hgb 13.7 Gm/dL ()?? 01/16/2023 04:05 Hct 43.0 % ()?? 01/16/2023 04:05 MCV 85.7 femtoliters ()?? 01/16/2023 04:05 MCH 27.3 pg ()?? 01/16/2023 04:05 MCHC 31.9 g/dL (Low)?? 01/16/2023 04:05 Platelet Count 186 k/mm3 ()?? 01/16/2023 04:05 RDW-SD 39.4 femtoliters ()?? 01/16/2023 04:05 MPV 13.1 femtoliters (High)?? 01/16/2023 04:05 Nucleated RBC (Automated) 0.0 #/100 WBC'S ()?? 01/16/2023 04:05 Abs. NRBC 0.0 k/mm3 ()?? 01/16/2023 04:05 ?? CHEM GENERAL Sodium 141 mmol/L ()?? 01/16/2023 04:05 Potassium 4.2 mmol/L ()?? 01/16/2023 04:05 Chloride 108 mmol/L (High)?? 01/16/2023 04:05 Bicarbonate Level 23 mmol/L ()?? 01/16/2023 04:05 Anion Gap 10 ()?? 01/16/2023 04:05 Glucose Level 80 mg/dL ()?? 01/16/2023 04:05 BUN 15 mg/dL ()?? 01/16/2023 04:05 Creatinine-Blood 0.7 mg/dL ()?? 01/16/2023 04:05 Estimated GFR Creatinine 122 ML/MIN/1.73 M2 ()?? 01/16/2023 04:05 Calcium 9.5 mg/dL ()?? 01/16/2023 04:05 ? Assessment/Plan Diagnoses Alcohol use ??(Z78.9) Borderline personality disorder ??(F60.3) Dysuria ??(R30.0) Eating disorder ??(F50.9) NATHAN (generalized anxiety disorder) ??(F41.1) History of ADHD ??(Z86.59) Major depressive disorder, recurrent ??(F33.9) Overdose ??(T50.901A) Severe obesity ??(E66.01) Suicidal behavior ??(R45.89) Tobacco dependence ??(F17.200) Transgender ??(Z78.9) Trauma and stressor-related disorder ??(F43.9) ?? Assessment:??22-year-old transgender (F2M, prefers they/them and being called [place] ), past medical history of personality disorder, depression, frequent suicide attempt, tobacco dependence and obesity, recently discharged from hospital on 01/03 after admission for suicide attempt. Presenting on 01/06 with suicide attempt again by overdosing on their home meds that come in bubble paci (7 daysworth). Home meds include>>desmopressin, diphenhydramine, duloxetine, gabapentin, Haldol, lamotrigine diphenhydramine, duloxetine, gabapentin, olanzapine, methylphenidate, lamotrigine, prazosin, topiramate. Her ethanol 25, salicylic acid less than 0.3, acetaminophen level 59--44--21. Discussed with poison control by admitting team. Patient is now status post anecdote-acetylcysteine.Ppatienthas also been on ciwa and ativan for alcohol withdrawal but been scoring low. Seen by psych>>will need inpatient psych admit after medically cleared. ?? Patient has been medically stable. Electrolytes, renal function within normal range and stable. EKGwith no arrhythmia, QTc within normal limit. Patient is medically stable for transfer to inpatient psych. Psych bed search ongoing. ?? General:? -Continue inpatient care -Awaiting psych bed ?? Suicidal behavior (R45.89):??. Overdose (T50.901A):??. Borderline personality disorder (F60.3):??. NATHAN (generalized anxiety disorder) (F41.1):??. 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 Major depressive disorder, recurrent (F33.9):??Psych on board: patient is here for suicide attempt in the setting of multiple mental illnesses as noted.: Per psychiatry notes (01/10): Fortunately they were able to seek help by calling [facility] for an emergency evaluation, whereby, they were transported to the hospital for medical care. Although they did demonstrate help-seeking behaviors, they areconcerned that their suicide attempts increasingly become more lethal. Currently they endorse suicidal ideation, and, are concerned that they will try to find a way to hurt themselves more if they are discharged from the hospital. At this time they are advocating for in-patient level of psychiatric care. ?? -Continue duloxetine 20mg daily and topiramate 25mg daily for depression/anxiety, and mood stabilization, respectively -Continue prazosin 1mg qHS for PTSD related nightmares -Continue inpatient psychiatric bed search -Continue Suicide precautions -Patient may not leave the hospital without psychiatric clearance ? Alcohol use (Z78.9):??More than 5 days since last drink.??CIWA has been low,??had been complaining of some tremors, appears to be improving.?CIWA has been consistently low. -Discontinue CIWA, continue vitamins ?? History of ADHD (Z86.59):??History of ADHD reported, patient is on??methylphenidate??54 -Continue methylphenidate ?? Severe obesity (E66.01):??Noted. This can be addressed once the other issues are??stabilized. ?? Eating disorder (F50.9):??The patient is concerned about her severe??obesity??and is interested in losing weight, however also mentions??an eating disorder, and has been intermittently??been refusingfood or water.??She participates in online forms??with other??individuals??who also have??eating dis orders, I have consulted??Forest Fire Officer and??Psychiatry??to get her??better medical advice about this. ?? -Psychiatry??informed and follow-up requested -Nutrition consulted as well??for??advice ? Dysuria (R30.0):??Patient mentions??mild suprapubic pain and dysuria,??dark- colored urine, this coincides with their refusal of food and drink.??Blood work and urinalysis both fairly unremarkable. ?? -Continue to monitor clinically, will recheck??BMP in the morning -If??dysuria??persists we will??repeat urinalysis in a??day or 2 -Patient encouraged to take p.o.??hydration ?? Tobacco dependence (F17.200):??Noted, on nicotine patch. -Continue nicotine patch, would benefits counselor about this later on ?? Transgender (Z78.9):??Please note: Patient is F2M transgender and prefers they/them pronouns. They go by the name of Dudley . ?? Code Status:??Full ?Order Code Status:??Code Status Ordered ?? VTE Prophylaxis:??VTE protocol ordered ?VTE Prophylaxis Assessment:??VTE Prophylaxis Ordered ?? Ongoing Medical Necessity:??Awaiting Psych bed. Discharge Planning:??Awaiting Psych bed. ? Please note, dictation software (RateItAll) may have been used in the preparation of this note, and may have generated unintentional errors in speech recognition. If there are any questions going forward, please reach out for clarification. ? * Shankar Man: PERFORM, SIGN, VERIFY Event Display: Progress Note Hospital Authored Date: Patient: JORGE WALTER Age: 22 years Sex: Female : 2000 Associated Diagnoses: None Author: Shankar Man Findings Nursing Data Vital Signs : VITAL SIGNS SECTION 01/16/2023 16:00 EST Temperature 98.4 DegF Temperature Route Oral Pulse Rate 93 bpm H Respiratory Rate 20 br/min Systolic Blood Pressure 125 mm Hg Diastolic Blood Pressure 75 mm Hg Blood pressure sites Arm, right Mean Arterial Pressure 92 mm Hg Pulse Pressure 50 mm Hg Oxygen Saturation 98 % Mode of Delivery (Oxygen) Room air 01/16/2023 11:41 EST Early Warning Score 5.00 01/16/2023 11:41 EST Temperature 98.3 DegF Temperature Route Oral Pulse Rate 87 bpm Respiratory Rate 20 br/min Systolic Blood Pressure 131 mm Hg Diastolic Blood Pressure 58 mm Hg Blood pressure sites Arm, right Mean Arterial Pressure 82 mm Hg Pulse Pressure 73 mm Hg Oxygen Saturation 99 % Mode of Delivery (Oxygen) Room air 01/16/2023 11:34 EST Temperature 97.2 DegF Temperature Route Oral Pulse Rate 85 bpm Respiratory Rate 20 br/min Systolic Blood Pressure 98 mm Hg Diastolic Blood Pressure 50 mm Hg L Blood pressure sites Arm, right Mean Arterial Pressure 66 mm Hg Pulse Pressure 48 mm Hg Oxygen Saturation 95 % Mode of Delivery (Oxygen) Room air . Narrative/Incidental Pt. A+Ox4, VSS, not on tele. Patient resting comfortably in bed. Noted she ate some of her lunch and her supplement shake. Awaiting psych placement. 24hr sitter in room. Safety maintained.. Discharge Information Rehabilitation Discharge : Rehab Discharge Index 01/12/2023 11:36 EST Comments on treatment indicated Pt presenting at baseline however requires RW instead of SPC for mobility at this time. Walker: distance >50 Full chart review completed Yes Other findings low complex eval due to pt being close to baseline Patient Care team information Care Team Personnel Name: Garcia Baez RN Position: S RN Member Role: Primary Care Nurse Name: Leah Almonte RN Position: S RN Member Role: Primary Care Nurse Name: Natasha Dickey RN Position: S RN Member Role: Primary Care Nurse Name: Kellee Garvin RN Position: [facility] RN Member Role: Primary Care Nurse Name: Maegan Diaz RN Position: S RN Member Role: Primary Care Nurse Name: Genesis Lea RN Position: [facility] RN Member Role: Primary Care Nurse Name: Alejandra Gilbert RN Position: S RN Member Role: Primary Care Nurse Name: Blaire Solis RN Position: [facility] RN Member Role: Primary Care Nurse Name: Stefani Pinto RN Position: [facility] RN Member Role: Primary Care Nurse Name: Araceli Quevedo RN Position: [facility] RN Member Role: Primary Care Nurse Name: Fatoumata Loyd RN Position: [facility] RN Member Role: Primary Care Nurse Name: Melissa Stapleton RN Position: [facility] RN Member Role: Primary Care Nurse Name: Ligia Stapleton RN Position: [facility] RN Member Role: Primary Care Nurse Name: Narda Wilson NP Position: Reference Physician Member Role: PCP Address: Address: [address] [place] [id number] Name: Trinidad Ordonez RN Position: [facility] RN Member Role: Primary Care Nurse Name: Mariaelena Collazo RN Position: [facility] RN Member Role: Primary Care Nurse Name: Shankar Man Position: [facility] RN Member Role: Primary Care Nurse Name: Nikki Croft RN Position: [facility] RN Member Role: Primary Care Nurse Name: Shankar German RN Position: [facility] RN Member Role: Primary Care Nurse Name: John Cuellar RN Position: [facility] RN Member Role: Primary Care Nurse Name: Christos Godoy RN Position: [facility] RN Member Role: Primary Care Nurse Care Team Related Persons Name: [facility] Address: [address] [place] [address] Name: YULIYA WALTER Address: [address] [place] [address] Name: SUNDAY WAL[place] Address: [place] [address]
--- OUTSIDE RECORDS SUMMARY | 2023-06-07 19:11 | XMS_ITS | Continuity of Care Document ---
Author Organization [facility] Address [address] [place] [id number]- Care Team Providers Care Roller Shop Supervisor Name Role Phone Katie RILEY, Narda Marian Primary Care Physicclaudia an Encounter [facility] [place] Date(s): 02/10/22 - 02/10/[address] [address]- Encounter Diagnosis Malaise(Final) - 02/10/22 Discharge Disposition: A-D/C Home Attending Physician: Holli Smith MD Admitting Physician: Holli Smith MD Referring Physician: Not on Staff, Referring [...] 02/23/22 8:00:00 EST, 01/23/22 15:33:00 EST, Ointment, [facility], Partial fillupon patient request if the prescription [...] Maintenance, 01/24/22 9:27:00 EST, Capsule, [facility]-, Partial fill upon patient request if the prescription is for a schedule II opioid drug., 168, cm, 1... Start Date: 01/24/22 Status: Ordered PROzac 20 mg oral capsule 40 mg, 2, capsule, By Mouth, Daily, # 60 capsule, Refills 0, Tot. Refills 0, Maintenance, 01/24/22 9:26:00 EST, Route to Pharmacy Electronically, [facility]-, Partial fill upon patient [...] recent to oldest [Reference Range]: 1 Height 163 cm (02/10/22 7:55 PM) Weight 116 kg (02/10/22 7:55 PM) Oxygen Saturation [94-100 %] 99 % (02/10/22 7:55 PM) Pulse Rate [55-90 bpm] 89 bpm (02/10/22 7:55 PM) Blood Pressure [90-138/55-84 mm Hg] 126/ 75mm Hg (02/10/22 7:55 PM) Respiratory Rate [16-30 br/min] 16 br/mi n (02/10/22 7:55 PM) Temperature [96.8-100.4 DegF] 97.7 DegF (02/10/22 7:55 PM) Temperature Route Temporal (02/10/22 7:55 PM) Dry Weight 116 kg (02/10/22 7:55 PM) Social History Social History Type Response Smoking Status 10 or more cigarette s (1/2 pack or more)/day in last 30 days entered on: 12/11/20 Sex Patient Care team information Care Team Personnel Name: Natasha Dickey RN Position: [facility] RN Member Role: Primary Care Nurse Name: Lauryn Nolasco Position: [facility] RN Member Role: Primary Care Nurse Name: Blaire Solis RN Position: [facility] RN Member Role: Primary Care Nurse Name: Stefani Pinto RN Position: [facility] RN Member Role: Primary Care Nurse Name: Melissa Stapleton RN Position: [facility] RN Member Role: Primary Care Nurse Name: Ligia Stapleton RN Position: [facility] RN Member Role: Primary Care Nurse Name: Martin Martinez RN Position: [facility] RN Member Role: Primary Care Nurse Name: Narda Wilson NP Position: Reference Physician Member Role: PCP Address: Address: [address] [place] [address]- Name: Mariaelena Collazo RN Position: [facility] RN Member Role: Primary Care Nurse Name: Nikki Croft RN Position: [facility] RN Supv Member Role: Primary Care Nurse Name: Giana Huntley RN Position: [facility] RN Member Role: Primary Care Nurse Name: John Cuellar RN Position: [facility] RN Member Role: Primary Care Nurse Name: Holly Bowman RN Position: [facility] RN Member Role: Primary Care Nurse Name: Aline Izaguirre RN Position: [facility] RN Member Role: Primary Care Nurse Name: Holli Smith MD Position: [facility] ED Medicine MD Member Role: Admitting Physician Address: Address: [address] [place] [address]- Name: Lauryn Gibbs RN Position: [facility] ED RN W/OE and Tasks Member Role: Patient Care Provider Care Team Related Persons Name: [employer] Address: [address] [place] [address] Name: YULIYA MORA Address: [address] [address] Name: SUNDAY MORA Address: [place] [address]
--- OUTSIDE RECORDS SUMMARY | 2023-06-07 19:11 | XMS_ITS | Continuity of Care Document ---
Author Organization [facility] Address [address] [place] [address]- Care Team Providers Care Mixer Operator Hot Metal Name Role Phone Katie RILEY, Narda Marian Primary Care Physici an Encounter [facility] Date(s): 03/01/22 - 03/13/[address] [address]- Encounter Diagnosis Suicidal ideation(Final) - 03/02/22 Discharge Disposition: A-D/C Home Attending Physician: Glenda [...] 0 Refills, Maintenance, 01/24/22 9:26:00 EST, Cream, [facility]-, Partial fill upon patient request if the prescription is for a schedule II opioid drug., Topically 2... Start Date: 01/24/22 Status: Ordered ARIPiprazole 10 mg oral tablet 20 mg, 2, tablet, By Mouth, Daily, # 60 tablet, Refills 0, Tot. Refills 0, Maintenance, 01/24/22 9:25:00 EST, Route to Pharmacy Electronically, [facility], Partial fill upon patient request if the prescription is for a schedul... Start Date: 01/24/22 Status: Ordered benztropine 1 mg oral tablet 1 mg, 1, tablet, By Mouth, Every 6 hours, PRN, PRN for extrapyramidal symptoms, # 60 tablet, Refills 0, Tot. Refills 0, Maintenance, Other, 01/24/22 9:26:00 EST, Route to Pharmacy Electronically, [facility], Partial fill upon... Start Date: 01/24/22 Status: Ordered diphenhydrAMINE 25 mg oral tablet 2 tablet = 50 mg, By Mouth, 3 times a day, PRN Agitation, to be given with haldol only, # 60 tablet, 0 Refills, Maintenance, 01/24/22 9:26:00 EST, Tablet, [facility]-, Partialfill upon patient request if the prescription is fo... Start Date: 01/24/22 Status: Ordered gabapentin 300 mg oral capsule 600 mg, 2, capsule, By Mouth, 3 times a day, # 180 capsule, Refills 0, Tot. Refills 0, Maintenance,01/24/22 9:26:00 EST, Route to Pharmacy Electronically, [facility], Partial fill upon patient request if the prescription is f... Start Date: 01/24/22 Status: Ordered gabapentin 300 mg oral capsule 600 mg, Capsule, By Mouth, 03/12/22 15:00:00 EST Start Date: 03/12/22 Stop Date: 03/12/22 Status: Completed gabapentin 300 mg oral capsule 600 mg, Capsule, By Mouth, 03/13/22 9:00:00 EST Start Date: 03/13/22 Stop Date: 03/13/22 Status: Completed haloperidol 5 mg oral tablet 5 mg, 1, tablet, By Mouth, Every 4 hours, PRN, to be given with diphenhydramine, # 60 tablet, Refills 0, Tot. Refills 0, Maintenance, Agitation, 01/24/22 9:26:00 EST, Route to Pharmacy Electronically, [facility], Partial fill... Start Date: 01/24/22 Status: Ordered hydrOXYzine pamoate 25 mg oral capsule 2 capsule = 50 mg, By Mouth, 4 times a day, PRN Anxiety, # 90 capsule, 0 Refills, Maintenance, 01/24/22 9:26:00 EST, Capsule, [facility], Partial fill upon patient request ifthe prescription is for a schedule II opioid drug.,... Start Date: 01/24/22 Status: Ordered lithium 600 mg oral capsule = 600 mg, By Mouth, 2 times a day, # 60 capsule, 0 Refills, Maintenance, 01/24/22 9:27:00 EST, Capsule, [facility], Partial fill upon patient request if the prescription is for a schedule II opioid drug., 168, cm, 01/24/22 7:2... Start Date: 01/24/22 Status: Ordered methylphenidate 54 mg oral tablet, extended release 1 tablet = 54 mg, By Mouth, Daily, # 30 tablet, 0 Refills, Maintenance, 01/24/22 9:27:00 EST, ER Tablet, [facility], Partial fill upon patient request if the prescription is for a schedule II opioid drug., 168, cm, 01/24/22 7:... Start Date: 01/24/22 Status: Ordered ondansetron 4 mg oral tablet, disintegrating = 4 mg, By Mouth, Every 6 hours, PRN Nausea & Vomiting, # 30 capsule, 0 Refills, Maintenance, 01/24/22 9:27:00 EST, Tablet, [facility], Partial fill upon patient request if the prescription is for a schedule II opioid drug., 1... Start Date: 01/24/22 Status: Ordered prazosin 2 mg oral capsule 1 capsule = 2 mg, By Mouth, Daily at bedtime, # 30 capsule, 0 Refills, Maintenance, 01/24/22 9:27:00 EST, Capsule, [facility], Partial fill upon patient request if the prescription is for a schedule II opioid drug., 168, cm, 1... Start Date: 01/24/22 Status: Ordered PROzac 20 mg oral capsule 40 mg, 2, capsule, By Mouth, Daily, # 60 capsule, Refills 0, Tot. Refills 0, Maintenance, 01/24/22 9:26:00 EST, Route to Pharmacy Electronically, [facility], Partial fill upon patient request [...] Range]: 1 2 3 Height 165 cm (03/13/22 8:37 AM) 165 cm (03/12/22 2:05 PM) 165 cm (03/11/22 1:54 PM) Weight 136 kg (03/13/22 8:37 AM) 136 kg (03/12/22 2:05 PM) 136 kg (03/11/22 1:54 PM) Oxygen Saturation [94-100 %] 100 % (03/13/22 1:37 PM) 99 % (03/13/22 8:37 AM) 97 % (03/12/22 8:59 PM) Pulse Rate [55-90 bpm] 100 bpm *H* (03/13/22 1:37 PM) 87 bpm (03/13/22 8:37 AM) 93 bpm *H* (03/12/22 8:59 PM) Body Mass Index [18.5-24.99 kg/m2] 49.95 kg/m2 *>HHI* (03/13/22 8:37 AM) 49.95 kg/m2 *>HHI* (03/12/22 2:05 PM) 49.95 kg/m2 *>HHI* (03/11/22 1:54 PM) Blood Pressure [90-138/55-84 mm Hg] 98/66mm Hg (03/13/22 1:38 PM) 130/111mm Hg (03/13/22 1:37 PM) 112/70mm Hg (03/13/22 8:37 AM) Respiratory Rate [16-30 br/min] 18 br/min (03/13/22 1:37 PM) 16 br/min (03/13/22 11:49 AM) 16 br/min (03/13/22 11:49 AM) Temperature [96.8-100.4 DegF] 97.9 DegF (03/13/22 1:37 PM) 97.6 DegF (03/13/22 8:37 AM) 97.6 DegF (03/12/22 8:59 PM) Mode of Delivery (Oxygen) Room air (03/13/22 1:37 PM) Room air (03/13/22 8:37 AM) Room air (03/12/22 8:59 PM) Blood pressure sites Arm, right (03/13/22 8:37 AM) Arm, left (03/12/22 2:05 PM) Arm, left (03/11/22 1:54 PM) Temperature Route Temporal (03/13/22 1:37 PM) Temporal (03/13/22 8:37 AM) Temporal (03/12/22 8:59 PM) Dry Weight 136 kg (03/13/22 8:37 AM) 136 kg (03/12/22 2:05 PM) 136 kg (03/11/22 1:54 PM) Social History Social History Type Response Smoking Status 10 or more cigarette s (1/2 pack or more)/day in last 30 days entered on: 12/11/20 [facility] Progress note * Jeaneth Gordon RN: SIGN, MODIFY, PERFORM, SIGN, VERIFY Event Display: Progress Note Hospital Authored Date: Patient: JORGE MORA Age: 21 years Sex: Female : 2000 Associated Diagnoses: None Author: Jeaneth Gordon RN Findings Narrative/Incidental Allyson reports feeling well today but tired like i am just existing. Tells me they had a lot of prn medications yesterday to prevent the urge to pick and reopen healing scabs. Ate breakfast and tookam meds, prn tylenol given too. Moved herself independently to the bathroom via wheelchair. Calms and cooperative. Flat tone. Does laugh occasionally during conversation. Normal eye contact w/ rn.. Discharge Information Rehabilitation Discharge : Rehab Discharge Index 03/09/2022 12:47 EST Comments on treatment indicated Strengthening, Gait w/ WW, Balance, Safety w/ ADLs Walker: distance 10-20 Full chart review completed Yes Hospital course Pt seen in the ED with SI Other findings Pt able to participate with ADLs with stand pivot transfer to W/C independently. Pt with chacorta LE weakness from prolonged bedrest with increased active engagement with ambulation with use of the wheeled walker. Plan of care PT Gait training, Transfer training, Therapeutic exercise, Functional Activities, Balance training * Jeaneth Gordon RN: PERFORM Event Display: Progress Note Hospital Authored Date: Pt remained calm and cooperative throughout shift. Asked for PT- this was discussed w/ provider whoagreed to review it tomorrow on a week day when theyre are more PT staff on. Pt made aware and agreeable to this. Continues to use wheelchair to get to bathroom and ambulates short distances. Watching football this evening. 1:[address] Pending inpatient placement. * Enrique Kulkarni RN: PERFORM, SIGN, VERIFY Event Display: Progress Note Hospital Authored Date: Patient: JORGE MORA Age: 21 years Sex: Female : 2000 Associated Diagnoses: None Author: Enrique Kulkarni RN Findings this nurse went into room to ask patient what medication she wanted before bed. patient did not respond when spoken to. patient laying on her right side facing the wall with blankets on. patient opened eyes for less than a second and looked at me at foot of bed. patient then fidgeted around her neck. i asked her what she was doing with no response. i pulled blankets off the patient to find a white cloth around her neck. her face was beginning to become red. i pulled at the cloth to discover it was tied. i then tried to rip by hand unsuccessfully and then pulled out trauma sheers and cut the cloth from around her neck. i then told patient to sit up and she did and was no longer red faced andwas breathing easily. charge nurse notified. MD notified. patient then given PO meds and IM haldol.after the event the charge and this nurse realized the cloth was her underwear briefs. patient thenplaced on 1:1 observation. Discharge Information Case Management Discharge Plan : Case Management Discharge Plan Data 02/28/2022 22:47 EST Discharge Level of Care at Discharge Home[facility] 02/27/2022 2:32 EST Discharge Level of Care at Discharge Home/[facility] 02/26/2022 11:17 EST Discharge Level of Care at Discharge Home/[facility] Note * Fransisco ESTES, Glenda Mcgill: PERFORM Event Display: Patient Education Leaflets Authored Date: [id number] Depression ?? [id number] Depression Depression is a very common mental [...] medicines you take. This includes prescription and rmpt-hym-smhnrto medicines. It includes vitamins and herbal supplements. [...] An online chat option is also available. [employer] is free and available 04/09. 985 counselors will work with 911 to help [...] help ?? Last Reviewed Date: 2021 ?? 8813-8229 [employer]. All rights reserved. This information is not intended as a substitute for professional medical care. Always follow your healthcare professional's instructions. ?? Patient Care team information Care Team Personnel Name: Natasha Dickey RN Position: [facility] RN Member Role: Primary Care Nurse Name: Lauryn Nolasco Position: [facility] RN Member Role: Primary Care Nurse Name: Blaire Solis RN Position: [facility] RN Member Role: Primary Care Nurse Name: Stefani Pinto RN Position: [facility] RN Member Role: Primary Care Nurse Name: Melissa Stapleton RN Position: [facility] RN Member Role: Primary Care Nurse Name: Ligia Stapleton RN Position: [facility] RN Member Role: Primary Care Nurse Name: Martin Martinez RN Position: [facility] RN Member Role: Primary Care Nurse Name: Narda Wilson NP Position: Reference Physician Member Role: PCP Address: Address: [address] [place] [address] Name: Mariaelena Collazo RN Position: S RN Member Role: Primary Care Nurse Name: Nikki Croft RN Position: [facility] RN Supv Member Role: Primary Care Nurse Name: Giana Huntley RN Position: [facility] RN Member Role: Primary Care Nurse Name: John Cuellar RN Position: [facility] RN Member Role: Primary Care Nurse Name: Holly Bowman RN Position: [facility] RN Member Role: Primary Care Nurse Name: Aline Izaguirre RN Position: [facility] RN Member Role: Primary Care Nurse Name: Glenda Moody MD Position: [facility] ED Medicine MD Member Role: Admitting Physician Address: Address: [address] [place] [address]- Name: Barbie Colunga RN Position: [facility] ED RN W/OE and Tasks Member Role: Patient Care Provider Care Team Related Persons Name: [employer]I Address: home [address] [place] [address] Name: YULIYA MORA Address: home [address] [place] [address] Name: SUNDAY MORA Address: [place] [address]
--- OUTSIDE RECORDS SUMMARY | 2023-06-07 19:11 | XMS_ITS | Continuity of Care Document ---
Author Organization [facility] Address [address] [place] [address]- Care Team Providers Care Boring Machine Set Up Operator Jig Name Role Phone Katie RILEY, Narda Marian Primary Care Physici an Encounter [facility] [place] [place] Date(s): 08/30/22 - 09/01/[address] [address]- Discharge Disposition: A-D/C Home Attending Physician: Martin [...] oral capsule 600 mg, Capsule, By Mouth, 08/31/22 15:00:00 EDT Start Date: 08/31/22 Stop Date: 08/31/22 Status: Completed gabapentin 300 mg oral capsule 600 mg, 2, capsule, By Mouth, 3 times a day, # 180 capsule, Refills 0, Tot. Refills 0, Maintenance,01/24/22 9:26:00 EST, Route to Pharmacy Electronically, [facility]-, Partial fill upon patient request if the prescription is f... Start Date: 01/24/22 Status: Ordered gabapentin 300 mg oral capsule 600 mg, Capsule, By Mouth, 09/01/22 9:00:00 EDT Start Date: 09/01/22 Stop Date: 09/01/22 Status: Completed haloperidol 5 mg oral tablet [...] Refills, Maintenance, 01/24/22 9:27:00 EST, ER Tablet, [facility]-, Partial fill upon patient request if the prescription is for a schedule II opioid drug., 168, cm, 01/24/22 7:... Start Date: 01/24/22 Status: Ordered prazosin 2 mg oral capsule 1 capsule = 2 mg, By Mouth, Daily at bedtime, # 30 capsule, 0 Refills, Maintenance, 01/24/22 9:27:00 EST, Capsule, [facility], Partial fill upon patient request if the prescription is for a schedule II opioid drug., 168, cm, 1... Start Date: 01/24/22 Status: Ordered PROzac 20 mg oral capsule 40 mg, 2, capsule, By Mouth, Daily, # 60 capsule, Refills 0, Tot. Refills 0, Maintenance, 01/24/22 9:26:00 EST, Route to Pharmacy Electronically, [facility]-, Partial fill upon patient [...] Range]: 1 2 3 Height 168 cm (08/31/22 12:10 PM) 168 cm (08/30/22 9:48 PM) Weight 144 kg (08/31/22 12:10 PM) 144 kg (08/30/22 9:48 PM) Oxygen Saturation [94-100 %] 98 % (08/31/22 7:46 PM) 96 % (08/31/22 12:10 PM) 99 % (08/30/22 9:48 PM) Pulse Rate [55-90 bpm] 77 bpm (08/31/22 7:46 PM) 94 bpm *H* (08/31/22 12:10 PM) 102 bpm *H* (08/30/22 9:48 PM) Body Mass Index [18.5-24.99 kg/m2] 51.02 kg/m2 *>HHI* (08/31/22 12:10 PM) Blood Pressure [90-138/55-84 mm Hg] 134/85mm Hg (08/31/22 7:46 PM) 124/78mm Hg (08/31/22 12:10 PM) 151/120mm Hg *H* (08/30/22 9:48 PM) Respiratory Rate [16-30 br/min] 20 br/min (09/01/22 8:47 AM) 16 br/min (08/31/22 7:46 PM) 18 br/min (08/31/22 2:15 PM) Temperature [96.8-100.4 DegF] 97.2 DegF (08/31/22 7:46 PM) 98.3 DegF (08/31/22 12:10 PM) 98.4 DegF (08/30/22 9:48 PM) Mode of Delivery (Oxygen) Room air (08/31/22 7:46 PM) Room air (08/31/22 12:10 PM) Room air (08/30/22 9:48 PM) Blood pressure sites Arm, right (08/31/22 12:10 PM) Arm, left (08/30/22 9:48 PM) Temperature Route Temporal (08/31/22 12:10 PM) Temporal (08/30/22 9:48 PM) Dry Weight 144 kg (08/31/22 12:10 PM) 144 kg (08/30/22 9:48 PM) Weight Obtained Via Patient/family state d (08/30/22 9:48 PM) Social History Social History Type Response Smoking Status 10 or more cigarette s (1/2 pack or more)/day in last 30 days entered on: 09/07/18 Sex Hospital Progress note * Ortega Rodgers RN: PERFORM, SIGN, VERIFY Event Display: Progress Note Hospital Authored Date: Patient: JORGE MORA Age: 22 years Sex: Female : 2000 Associated Diagnoses: None Author: Ortega Rodgers RN Findings Pt has reported some intrusive thoughts / self harm urges / ongoing mild SI this shift. PRN meds given, see MAR, collaborative decision-making with patient regarding PRN meds. Pt making needs known, at this time pt is awake, 1:1 constant lsw in room at bedside. See flowsheet for additional doc umentation. Pt provided with appropriate diversional activities while awake. Ate dinner this shift. * Laura Lloyd RN: PERFORM, SIGN, VERIFY Event Display: Progress Note Hospital Authored Date: Patient: JORGE MORA Age: 22 years Sex: Female : 2000 Associated Diagnoses: None Author: Gabino CHAVEZ, Laura Findings Pt care obtained at 0700 from [facility]. Pt in 1 with active 1:[address], Sect 12, on a bedsearch. Pt slept most of the morning, finally woken up to given Rx and assess the pt. The pt was C&C,able to communicate with staff appropriately. The pt is flat in affect, noted to be tremulous whichthey report is not new to them. The pt was able to verbalize increasing anxiety and requesting PRN Haldol. Pt reports that she was trying their best to not self harm. Pt was accepted to [id number] on 09/01/22 and EMS will be scheduled for 10am pick remover. Pt is aware of the transfer. Nurse to nurse to [facility] at 1530, active 1:1 still at bedside. Pt care transferred with no changes, Patient Care team information Care Team Personnel Name: Natasha Dickey RN Position: [facility] RN Member Role: Primary Care Nurse Name: Blaire Solis RN Position: [facility] RN Member Role: Primary Care Nurse Name: Stefani Pinto RN Position: [facility] RN Member Role: Primary Care Nurse Name: Melissa Stapleton RN Position: [facility] RN Member Role: Primary Care Nurse Name: Ligia Stapleton RN Position: [facility] RN Member Role: Primary Care Nurse Name: Narda Wilson NP Position: Reference Physician Member Role: PCP Address: Address: [address] [place] [address]- Name: Mariaelena Collazo RN Position: [facility] RN Member Role: Primary Care Nurse Name: Nikki Croft RN Position: [facility] RN Supv Member Role: Primary Care Nurse Name: John Cuellar RN Position: [facility] RN Member Role: Primary Care Nurse Name: Martin Villatoro MD Position: [facility] ED Medicine MD Member Role: ED Attending Physician Address: Address: [address] [place] [address] [place] [address]- Name: Kody Thakur RN Position: [facility] ED RN W/OE and Tasks Member Role: Patient Care Provider Name: Yohannes Iglesias RN Position: [facility] ED RN W/OE and Tasks Member Role: Patient Care Provider Care Team Related Persons Name: [employer] Address: home [address] [place] [address] Name: YULIYA MORA Address: home [address] [place] [address] Name: SUNDAY MORA Address: [place] [address]
--- OUTSIDE RECORDS SUMMARY | 2023-06-07 19:11 | XMS_ITS | Continuity of Care Document ---
Author Organization [facility] Address [address] [place] [address]- Care Team Providers Care Senior Strategy Manager Name Role Phone Katie RILEY, Narda Fonseca Primary Care Physici an Encounter [facility] [place] Date(s): 04/30/21 - 05/01/[address] [address]- Discharge Disposition: A-D/C Home Attending Physician: Stewart [...] 04/26/21 11:03:00 EDT, Tablet, [facility], [place]-[id number], Par... Start Date: 04/26/21 Stop Date: 05/26/21 Status: Ordered lithium 300 mg oral tablet, extended release 2 tablet = 600 mg, By Mouth, 2 times a day, # 120 tablet, 1 Refills, Maintenance, 11/15/20 15:50:00EDT, ER Tablet, [facility], [place]- [id number], Partial fill upon patient request if the prescription is for a schedule II opioid drug., 168, cm, 1... Start Date: 11/15/20 Status: Ordered ondansetron 8 mg oral tablet, disintegrating 1 tablet = 8 mg, By Mouth, Every 8 hours, PRN Nausea, # 12 tablet, 0 Refills, Acute 05/04/21 0:45:00 EDT, 04/30/21 0:45:00 EDT, DIS Tablet, [facility], [place]-[id number], Partial fill upon patient request if the prescription is for a schedule II... Start Date: 04/30/21 Stop Date: 05/04/21 Status: Ordered prazosin 2 mg oral capsule 1 capsule = 2 mg, By Mouth, Daily at bedtime, takes with 5 mg prazosin, # 30 capsule, 1 Refills, Maintenance, 11/15/20 15:50:00 EDT, Capsule, [facility], [place]-[id number], Partial fill upon patient request if the prescription is for a schedule I... Start Date: 11/15/20 Stop Date: 01/14/21 Status: Ordered prazosin 5 mg oral capsule 5 mg, 1, capsule, By Mouth, Daily at bedtime, # 30 capsule, Refills 1, Tot. Refills 1, Maintenance,11/15/20 15:50:00 EDT, Route to Pharmacy Electronically, [facility], [place]-[id number], Partial fill upon patient request if the prescription is f... Start Date: 11/15/20 Stop Date: 01/14/21 Status: Ordered PROzac 40 mg oral capsule 1 capsule = 40 mg, By Mouth, Daily, # 30 capsule, 1 Refills, Maintenance, 11/15/20 15:50:00 EDT, Capsule, [facility], [place]-[id number], Partial fill upon patient request if the [...] 04/26/21 11:02:00 EDT, Tablet, [facility], [place]-[id number], Partial fill upon patient request if the prescription is fora schedule II opioid drug., 170, cm, 04/26/21 8:31:... Start Date: 04/26/21 Status: Ordered traZODone 150 mg oral tablet 1 tablet = 150 mg, By Mouth, Daily at bedtime, # 30 tablet, 0 Refills, Maintenance, 11/15/20 15:50:00 EDT, Tablet, [facility], [place]-[id number], Partial fill upon patient request if the prescription is for a schedule II opioid drug., 168, cm, 10... Start Date: 11/15/20 Status: Ordered Problem List Condition Effective Dates Status Health Status Inform ant Depression(Confirmed) Active Severe obesity(Confirmed) Active Tobacco dependence(Confirmed) Active Vital Signs Most recent to oldest [Reference Range]: 1 2 3 Height 168 cm (04/30/21 11:32 PM) 168 cm (04/30/21 9:35 PM) Weight 138.5 kg (04/30/21 11:32 PM) 138.5 kg (04/30/21 9:35 PM) Oxygen Saturation [94-100 %] 99 % (05/01/21 12:18 PM) 100 % (05/01/21 9:41 AM) 99 % (04/30/21 11:32 PM) Pulse Rate [55-90 bpm] 73 bpm (05/01/21 12:18 PM) 72 bpm (05/01/21 9:41 AM) 61 bpm (04/30/21 11:32 PM) Body Mass Index [18.5-24.99] 49.07 *>HHI* (04/30/21 11:32 PM) Blood Pressure [90-138/55-84 mm Hg] 139/73mm Hg *H* (05/01/21 12:18 PM) 120/74mm Hg (05/01/21 9:41 AM) 123/67mm Hg (04/30/21 11:32 PM) Respiratory Rate [16-30 br/min] 16 br/min (05/01/21 12:18 PM) 16 br/min (05/01/21 9:41 AM) 18 br/min (04/30/21 11:32 PM) Temperature [96.8-100.4 DegF] 98.2 DegF (05/01/21 12:18 PM) 97.3 DegF (05/01/21 9:41 AM) 98.3 DegF (04/30/21 9:34 PM) Mode of Delivery (Oxygen) Room air (05/01/21 12:18 PM) Room air (05/01/21 9:41 AM) room air (04/30/21 11:32 PM) Blood pressure sites Arm, right (04/30/21 9:34 PM) Temperature Route Oral (04/30/21 9:34 PM) Dry Weight 138.5 kg (04/30/21 11:32 PM) 138.5 kg (04/30/21 9:35 PM) Social History Social History Type Response Smoking Status 10 or more cigarette s (1/2 pack or more)/day in last 30 days entered on: 12/11/20 Sex
--- OUTSIDE RECORDS SUMMARY | 2023-06-07 19:11 | XMS_ITS | Continuity of Care Document ---
Author Organization [facility] Address [address] [place] [address]- Care Team Providers Care Bioinformatics Specialist Name Role Phone Katie RILEY, Narda Fonseca Primary Care Blanco an Encounter [facility] [place] Date(s): 02/19/22 - 02/19/[address] [address]- Encounter Diagnosis Suicide attempt(Final) - 02/19/22 Chronic depression(Final) - 02/19/22 Personality disorder(Final) - 02/19/22 Mood disorder(Final) - 02/19/22 Discharge Disposition: A-D/C Home Attending Physician: Martin Villatoro MD Admitting Physician: Mratin Villatoro MD Referring Physician: Not on Staff, [...] Refills, Maintenance, 01/24/22 9:26:00 EST, Cream, [facility], Partial fill upon patient request if the prescription is for a schedule II opioid drug., Topically 2... Start Date: 01/24/22 Status: Ordered ARIPiprazole 10 mg oral tablet 20 mg, 2, tablet, By Mouth, Daily, # 60 tablet, Refills 0, Tot. Refills 0, Maintenance, 01/24/22 9:25:00 EST, Route to Pharmacy Electronically, [facility], [...] Refills, Maintenance, 01/24/22 9:26:00 EST, Tablet, [facility], Partialfill upon patient request if the [...] oral capsule 600 mg, Capsule, By Mouth, 02/19/22 9:00:00 EST Start Date: 02/19/22 Stop Date: 02/19/22 Status: Completed haloperidol 5 mg oral tablet 5 mg, 1, tablet, By Mouth, Every 4 hours, PRN, to be given with diphenhydramine, # 60 tablet, Refills 0, Tot. Refills 0, Maintenance, Agitation, 01/24/22 9:26:00 EST, Route to Pharmacy Electronically, [facility]-, Partial fill... Start Date: 01/24/22 Status: [...] 02/24/22 8:00:00 EST, 02/23/22 8:00:00 EST, Ointment, [facility]-, Partial fill upon patient request [...] Range]: 1 2 3 Height 168 cm (02/19/22 9:07 AM) 168 cm (02/19/22 2:40 AM) Weight 134.5 kg (02/19/22 9:07 AM) 134.5 kg (02/19/22 2:40 AM) Oxygen Saturation [94-100 %] 99 % (02/19/22 9:07 AM) 100 % (02/19/22 2:39 AM) Pulse Rate [55-90 bpm] 89 bpm (02/19/22 9:07 AM) 76 bpm (02/19/22 2:39 AM) Body Mass Index [18.5-24.99 kg/m2] 47.65 kg/m2 *>HHI* (02/19/22 9:07 AM) Blood Pressure [90-138/55-84 mm Hg] 100/77mm Hg (02/19/22 9:07 AM) 127/83mm Hg (02/19/22 2:39 AM) Respiratory Rate [16-30 br/min] 16 br/min (02/19/22 9:09 AM) 16 br/min (02/19/22 9:07 AM) 20 br/min (02/19/22 2:39 AM) Temperature [96.8-100.4 DegF] 97.8 DegF (02/19/22 2:39 AM) Mode of Delivery (Oxygen) Room air (02/19/22 9:07 AM) Room air (02/19/22 2:39 AM) Blood pressure sites Arm, left (02/19/22 9:07 AM) Arm, right (02/19/22 2:39 AM) Temperature Route Oral (02/19/22 2:39 AM) Dry Weight 134.5 kg (02/19/22 9:07 AM) 134.5 kg (02/19/22 2:40 AM) Social History Social History Type Response Smoking Status 10 or more cigarette s (1/2 pack or more)/day in last 30 days entered on: 12/11/20 Sex Patient Care team information Care Team Personnel Name: Natasha Dickey RN Position: [facility] RN Member Role: Primary Care Nurse Name: Lauryn Nolasco Position: [facility] RN Member Role: Primary Care Nurse Name: Blaire Solis RN Position: [facility] RN Member Role: Primary Care Nurse Name: Stefani Pinto RN Position: S RN Member Role: Primary Care Nurse Name: Melissa Stapleton RN Position: [facility] RN Member Role: Primary Care Nurse Name: Ligia Stapleton RN Position: S RN Member Role: Primary Care Nurse Name: Martin Martinez RN Position: [facility] RN Member Role: Primary Care Nurse Name: Narda Wilson NP Position: Reference Physician Member Role: PCP Address: Address: [address] [place] [address] Name: Mariaelena Collazo RN Position: S RN Member Role: Primary Care Nurse Name: Nikki Croft RN Position: [facility] RN Arleen Member Role: Primary Care Nurse Name: Giana Huntley RN Position: S RN Member Role: Primary Care Nurse Name: John Cuellar RN Position: S RN Member Role: Primary Care Nurse Name: Holly Bowman RN Position: [facility] RN Member Role: Primary Care Nurse Name: Aline Izaguirre RN Position: [facility] RN Member Role: Primary Care Nurse Name: Martin Villatoro MD Position: [facility] ED Medicine MD Member Role: Admitting Physician Address: Address: [address] [place] [address]- Name: Efrem Santiago RN Position: [facility] ED RN W/OE and Tasks Member Role: Patient Care Provider Care Team Related Persons Name: [employer] Address: home [address] [place] [address] Name: YULIYA MORA Address: home [address] [place] [address] Name: SUNDAY MORA Address: [place] [address]
--- OUTSIDE RECORDS SUMMARY | 2023-06-07 19:11 | XMS_ITS | Continuity of Care Document ---
Author Organization [facility] Address [address] [place] [address]- Care Team Providers Care Website/Blog Editor Name Role Phone Katie RILEY, Narda Marian Primary Care Physici an Encounter [facility] [place] Date(s): 10/20/21 - 11/15/21 [facility] [address] [place] [address]- Encounter Diagnosis Depression(Final) - 10/19/21 Discharge Disposition: A-D/C Home Attending Physician: Enrique Shepard MD Admitting Physician: Enrique Shepard MD Referring Physician: Not on Staff, Referring [...] 11:59:00 EDT, Inhaler, Route to Pharmacy Electronically, [id number], [facility]-[id number], 168, cm, 11/15/21 11:24:00 EDT, He... Start Date: 11/15/21 Status: Ordered ARIPiprazole 10 mg oral tablet 20 mg, 2, tablet, By Mouth, Daily, # 60 tablet, Refills 0, Tot. Refills 0, Maintenance, 11/15/21 10:18:00 EDT, Route to Pharmacy Electronically, [facility], [place], Partial fill upon patient request if the prescription is for a schedul... Start Date: 11/15/21 Status: Ordered gabapentin 300 mg oral capsule 300 mg, By Mouth, 2 times a day, Afternoon and HS, # 60 capsule, Refills 0, Tot. Refills 0, Maintenance, 11/15/21 10:12:00 EDT, [email or web address] Partial fill upon patient request if the prescription... Start Date: 11/15/21 Status: Ordered gabapentin 300 mg oral capsule 600 mg, By Mouth, Daily in AM, # 60 capsule, Refills 0, Tot. Refills 0, Maintenance, 11/15/21 10:12:00 EDT, [email or web address], Partial fill upon patient request if the prescription is for a schedule I... Start Date: 11/15/21 Status: Ordered gabapentin 300 mg oral capsule 300 mg, Capsule, By Mouth, 11/15/21 9:00:00 EDT Start Date: 11/15/21 Stop Date: 11/15/21 Status: Completed haloperidol 5 mg oral tablet 5 mg, 1, tablet, By Mouth, Every 8 hours, PRN, # 90 tablet, Refills 0, Tot. Refills 0, Maintenance,Agitation, 11/15/21 10:12:00 EDT, [id number] Partial fill upon patient request if the prescr... Start Date: 11/15/21 Status: Ordered lithium 600 mg oral capsule = 600 mg, By Mouth, 2 times a day, # 60 capsule, 0 Refills, Maintenance, 11/15/21 10:12:00 EDT, Capsule, [facility]-[id number], Partial fill upon patient request if the prescription is for a schedule II opioid drug., 168, cm, 11/14/21 21:... Start Date: 11/15/21 Status: Ordered metFORMIN 500 mg oral tablet 1 each = 500 mg, By Mouth, 2 times a day, # 60 tablet, 0 Refills, Maintenance, 11/15/21 10:12:00 EDT, Tablet, [facility]-[id number], Partial fill upon patient request if the prescriptionis for a schedule II opioid drug., 168, cm, ... Start Date: 11/15/21 Status: Ordered prazosin 1 mg oral capsule 2 mg, Capsule, By Mouth, 11/14/21 21:00:00 EDT Start Date: 11/14/21 Stop Date: 11/14/21 Status: Completed prazosin 2 mg oral capsule 1 capsule = 2 mg, By Mouth, Daily at bedtime, # 30 capsule, 0 Refills, Maintenance, 11/15/21 10:12:00 EDT, Capsule, [facility]-[id number], Partial fill upon patient request if the prescription is for a schedule II opioid drug., 168, cm, 1... Start Date: 11/15/21 Status: Ordered PROzac 20 mg oral capsule 40 mg, 2, capsule, By Mouth, Daily, # 60 capsule, Refills 0, Tot. Refills 0, Maintenance, 11/15/21 10:12:00 EDT, Route to Pharmacy Electronically, [facility]-[id number], Partial fill upon patient request if the [...] Range]: 1 2 3 Height 168 cm (11/15/21 8:40 AM) 168 cm (11/14/21 9:39 PM) 168 cm (11/14/21 9:15 AM) Weight 142.1 kg (10/27/21 12:11 PM) 143.5 kg (10/20/21 2:30 PM) 145.5 kg (10/19/21 2:20 AM) Oxygen Saturation [94-100 %] 100 % (11/15/21 8:40 AM) 98 % (11/14/21 9:39 PM) 98 % (11/14/21 9:15 AM) Pulse Rate [55-90 bpm] 94 bpm *H* (11/15/21 8:40 AM) 80 bpm (11/14/21 9:39 PM) 76 bpm (11/14/21 9:15 AM) Body Mass Index [18.5-24.99] 50.84 *>HHI* (10/20/21 2:30 PM) 51.55 *>HHI* (10/19/21 2:16 AM) Blood Pressure [90-138/55-84 mm Hg] 112/59mm Hg (11/15/21 8:40 AM) 119/72mm Hg (11/14/21 9:39 PM) 119/72mm Hg (11/14/21 8:56 PM) Respiratory Rate [16-30 br/min] 16 br/min (11/15/21 11:30 AM) 16 br/min (11/15/21 8:40 AM) 16 br/min (11/15/21 8:40 AM) Temperature [96.8-100.4 DegF] 97 DegF (11/15/21 8:40 AM) 97.3 DegF (11/14/21 9:39 PM) 97.2 DegF (11/14/21 9:15 AM) Mode of Delivery (Oxygen) Room air (11/15/21 8:40 AM) Room air (11/14/21 9:15 AM) Room air (11/13/21 8:33 PM) Blood pressure sites Arm, right (11/15/21 8:40 AM) Leg, right (11/14/21 9:15 AM) Arm, left (11/13/21 8:33 PM) Temperature Route Temporal (11/15/21 8:40 AM) Tympanic (11/14/21 9:39 PM) Temporal (11/14/21 9:15 AM) Dry Weight 143.5 kg (10/20/21 2:30 PM) 145.5 kg (10/19/21 2:20 AM) 145.5 kg (10/19/21 2:16 AM) Social History Social History Type Response Smoking Status 10 or more cigarette s (1/2 pack or more)/day in last 30 days entered on: 12/11/20 Sex Patient Care team information Personnel Name: Narda Wilson NP Address: Address: [address] [place] [id number]
--- OUTSIDE RECORDS SUMMARY | 2023-06-07 19:12 | XMS_ITS | Continuity of Care Document ---
Author Organization [facility] Address [address] [place] [address]- Care Team Providers Care Vitamin Manager Name Role Phone Anny Arnett Primary Care Physician [phone] [place] [facility] [place] 12[place]21[place]22 - 12/21/[address] [address]- Discharge Disposition: A-D/C Home Attending Physician: Martin [...] 0 Refills, Maintenance, 10/10/22 10:08:00 EDT, Capsule, [facility]-[id number], Partial fill upon patient request if the prescription is for a schedule II opioid drug., 168, cm, 10/10/22 9:07... Start Date: 10/10/22 Status: Ordered fluticasone 27.5 mcg/inh nasal spray 2 sprays, Nares, Both, Daily, PRN for allergy symptoms, # 10 Gm, 0 Refills, Maintenance, 10/12/22 4:42:00 EDT, [place], Partial fill upon patient request if the prescription is for a schedule II opioiddrug. Start Date: 10/12/22 Status: Ordered gabapentin 300 mg oral capsule 300 mg, By Mouth, Daily, # 30 capsule, Refills 0, Tot. Refills 0, Maintenance, 10/10/22 10:08:00 EDT, Route to Pharmacy Electronically, [facility]-[id number], Partial fill upon patient request if the [...] Maintenance, 10/10/22 10:08:00 EDT,Route to Pharmacy Electronically, [facility]-[id number], Partial fill upon patient request if the [...] Refills, Maintenance, 10/10/22 10:10:00 EDT, DIS Tablet, [facility]-[id number], Partial fill upon patient request if the [...] [Reference Range]: 1 2 Height 168 cm (12/21/22 2:55 PM) 168 cm (12/21/22 2:52 PM) Weight 143 kg (12/21/22 2:55 PM) 143 kg (12/21/22 2:52 PM) Oxygen Saturation [94-100 %] 97 % (12/21/22 2:52 PM) Pulse Rate [55-90 bpm] 122 bpm *H* (12/21/22 2:52 PM) Body Mass Index [18.5-24.99 kg/m2] 50.67 kg/m2 *>HHI* (12/21/22 2:52 PM) Blood Pressure [90-138/55-84 mm Hg] 107/ 75mm Hg (12/21/22 2:52 PM) Respiratory Rate [16-30 br/min] 18 br/mi n (12/21/22 2:52 PM) Temperature [96.8-100.4 DegF] 98.9 DegF (12/21/22 2:52 PM) Mode of Delivery (Oxygen) Room air (12/21/22 2:52 PM) Blood pressure sites Arm, right (12/21/22 2:52 PM) Temperature Route Temporal (12/21/22 2:52 PM) Dry Weight 143 kg (12/21/22 2:55 PM) 143 kg (12/21/22 2:52 PM) Social History Social History Type Response Smoking Status 10 or more cigarette s (1/2 pack or more)/day in last 30 days entered on: 09/07/18 Sex Patient Care team information Care Team Personnel Name: Natasha Dickey RN Position: [facility] RN Member Role: Primary Care Nurse Name: Anny Arnett Position: [facility] Associate Professional Member Role: PCP Address: Address: [address] [place] [address] [place] [address]- Name: Genesis eLa RN Position: [facility] RN Member Role: Primary Care Nurse Name: Blaire Solis RN Position: [facility] RN Member Role: Primary Care Nurse Name: Stefani Pinto RN Position: [facility] RN Member Role: Primary Care Nurse Name: Melissa Stapleton RN Position: S RN Member Role: Primary Care Nurse Name: Ligia Stapleton RN Position: [facility] RN Member Role: Primary Care Nurse Name: Trinidad Ordonez RN Position: [facility] RN Member Role: Primary Care Nurse Name: Mariaelena Colalzo RN Position: [facility] RN Member Role: Primary Care Nurse Name: Nikki Croft RN Position: [facility] RN Member Role: Primary Care Nurse Name: John Cuellar RN Position: [facility] RN Member Role: Primary Care Nurse Name: Christos Godoy RN Position: [facility] RN Member Role: Primary Care Nurse Name: Martin Villatoro MD Position: [facility] ED Medicine MD Member Role: Admitting Physician Address: Address: [address] [place] [address] [place] [address]- Name: Zara Ruiz Position: [facility] SN RN Member Role: Patient Care Provider Care Team Related Persons Name: [employer] Address: home [address] [place] [address] Name: YULIYA MORA Address: home [address] [place] [address] Name: SUNDAY MORA Address: [place] [address]
--- OUTSIDE RECORDS SUMMARY | 2023-06-07 19:12 | XMS_ITS | Continuity of Care Document ---
Author Organization [facility] Address [address] [place] [address]- Care Team Providers Care Shoe Repair Supervisor Name Role Phone Yovanny RILEY, Nikki Primary Care Physician Encounter [facility] [place](s): 03/08/23 - 03/11/[address] [address]- Encounter Diagnosis Attempted suicide(Final) - 03/08/23 Borderline personality disorder(Final) - 03/08/23 Depression with suicidal ideation(Final) - 03/08/23 Severe obesity(Final) - 03/08/23 Transgender(Final) - 03/08/23 Discharge Disposition: A-D/C Home Attending Physician: Misty Cutler MD Admitting Physician: Omayra ESTES, Misty Referring Physician: Not on Staff, Referring MD [...] 0 Refills, Maintenance, 03/06/23 16:00:00 EST, Capsule, [facility], Partial fill upon patient request if the prescription is for a schedule II opioid drug., 167, cm, 03/06/23 9:03:00 EST... Start Date: 03/06/23 Status: Ordered haloperidol 5 mg oral tablet 5 mg, By Mouth, 3 times a day, PRN, # 90 tablet, Refills 0, Tot. Refills 0, Maintenance, Agitation,03/06/23 16:00:00 EST, Route to Pharmacy Electronically, [facility], Partial fill upon patient request if the prescription is... Start Date: 03/06/23 Status: Ordered methylphenidate 27 mg oral tablet, extended release = 27 mg, By Mouth, Daily, # 30 tablet, 0 Refills, Maintenance, 03/06/23 16:01:00 EST, ER Tablet, [facility], Partial fill upon patient request if the prescription is for a schedule II opioid drug., 167, cm, 03/06/23 9:03:00 ES... Start Date: 03/06/23 Status: Ordered prazosin 1 mg oral capsule 1 mg, By Mouth, Daily at bedtime, # 30 capsule, Refills 0, Tot. Refills 0, Maintenance, 03/06/23 16:01:00 EST, Route to Pharmacy Electronically, [facility], Partial fill uponpatient request if the prescription is for a schedu... Start Date: 03/06/23 Status: Ordered topiramate 25 mg oral tablet = 75 mg, By Mouth, Daily at bedtime, # 90 tablet, 0 Refills, Maintenance, 03/06/23 16:01:00 EST, Tablet, [facility], Partial fill upon patient [...] Range]: 1 2 3 Height 167 cm (03/09/23 6:23 AM) 167 cm (03/08/23 7:11 PM) 167 cm (03/08/23 6:52 PM) Weight 147.5 kg (03/09/23 6:23 AM) 147.5 kg (03/08/23 7:11 PM) 149 kg (03/08/23 6:52 PM) Oxygen Saturation [94-100 %] 96 % (03/11/23 8:34 AM) 100 % (03/10/23 8:45 PM) 96 % (03/10/23 8:05 AM) Pulse Rate [55-90 bpm] 105 bpm *H* (03/11/23 8:34 AM) 83 bpm (03/10/23 8:45 PM) 94 bpm *H* (03/10/23 8:05 AM) Body Mass Index [18.5-24.99 kg/m2] 52.89 kg/m2 *>HHI* (03/09/23 6:23 AM) 52.89 kg/m2 *>HHI* (03/08/23 7:11 PM) Blood Pressure [90-138/55-84 mm Hg] 127/82mm Hg (03/11/23 8:34 AM) 108/72mm Hg (03/10/23 8:45 PM) 130/83mm Hg (03/10/23 8:05 AM) Respiratory Rate [16-30 br/min] 17 br/min (03/11/23 8:34 AM) 18 br/min (03/10/23 8:45 PM) 16 br/min (03/10/23 8:05 AM) Temperature [96.8-100.4 DegF] 96.9 DegF (03/11/23 8:34 AM) 97.7 DegF (03/10/23 8:45 PM) 97.5 DegF (03/10/23 8:05 AM) Mode of Delivery (Oxygen) Room air (03/11/23 8:34 AM) Room air (03/10/23 8:45 PM) Room air (03/10/23 8:05 AM) Blood pressure sites Arm, right (03/08/23 7:11 PM) Temperature Route Temporal (03/11/23 8:34 AM) Temporal (03/10/23 8:05 AM) Oral (03/08/23 7:11 PM) Dry Weight 149 kg (03/09/23 6:23 AM) 149 kg (03/08/23 7:11 PM) 149 kg (03/08/23 6:52 PM) Social History Social History Type Response Smoking Status 10 or more cigarette s (1/2 pack or more)/day in last 30 days entered on: 09/07/18 Sex Note * Carter Shen MD: PERFORM, SIGN, VERIFY Event Display: Patient Education Handout Authored Date: [id number] * Carter Shen MD: PERFORM Event Display: Patient Education Leaflets Authored Date: [id number] Depression ?? [id number] Depression Depression is a very common mental [...] medicines you take. This includes prescription and kief-qcw-bdovhpa medicines. It includes vitamins and herbal supplements. [...] An online chat option is also available. [employer] is free and available 04/09. 988 counselors will work with 91 to help you get the care you [...] help ?? Last Reviewed Date: 2021 ?? [id number] [employer]. All rights reserved. This information is not intended as a substitute for professional medical care. Always follow your healthcare professional's instructions. ?? Patient Care team information Care Team Personnel Name: Garcia Baez RN Position: [facility] RN Member Role: Primary Care Nurse Name: Leah Almonte RN Position: [facility] RN Member Role: Primary Care Nurse Name: Natasha Dickey RN Position: [facility] RN Member Role: Primary Care Nurse Name: Kellee Garvin RN Position: [facility] RN Member Role: Primary Care Nurse Name: Maegan Diaz RN Position: [facility] RN Member Role: Primary Care Nurse Name: Genesis Lea RN Position: [facility] RN Member Role: Primary Care Nurse Name: Nikki Hairston NP Position: [facility] PCO Associate Professional Member Role: PCP Address: Address: [address] [place] [address]- Name: Alejandra Gilbert RN Position: [facility] RN Member Role: Primary Care Nurse Name: Blaire Solis RN Position: [facility] RN Member Role: Primary Care Nurse Name: Zara Colon RN Position: [facility] RN Supv Member Role: Primary Care Nurse Name: Stefani Pinto RN Position: [facility] RN Member Role: Primary Care Nurse Name: Araceil Quevedo RN Position: [facility] RN Member Role: Primary Care Nurse Name: Fatoumata Loyd RN Position: [facility] RN Member Role: Primary Care Nurse Name: Melissa Stapleton RN Position: [facility] RN Member Role: Primary Care Nurse Name: Ligia Stapleton RN Position: S RN Member Role: Primary Care Nurse Name: Melissa Davison RN Position: [facility] RN Member Role: Primary Care Nurse Name: Trinidad Ordonez RN Position: [facility] RN Member Role: Primary Care Nurse Name: Mariaelena Collazo RN Position: [facility] RN Member Role: Primary Care Nurse Name: Shankar Man Position: [facility] RN Member Role: Primary Care Nurse Name: Nikki Croft RN Position: [facility] RN Member Role: Primary Care Nurse Name: John Cuellar RN Position: [facility] RN Member Role: Primary Care Nurse Name: Christos Godoy RN Position: [facility] RN Member Role: Primary Care Nurse Care Team Related Persons Name: LONGTERM SEED TECHNICIANYENI Address: home [address] [place] [address] Name: YULIYA MORA Address: home [address] [place] [address] Name: SUNDAY [place]ORA Address: [place] [address]
--- OUTSIDE RECORDS SUMMARY | 2023-06-07 19:12 | XMS_ITS | Continuity of Care Document ---
Author Organization [facility] Address [address] [place] [address]- Care Team Providers Care Physician Assistant Certified Name Role Phone Anny Arnett Primary Care Physician Encounter [facility] [place] Date(s): 12/22/22 - 12/23/[address] [address]- Discharge Disposition: A-D/C Home Attending Physician: Taty Luna MD Admitting Physician: Taty Luna MD Referring Physician: Not on Staff, Referring [...] 0 Refills, Maintenance, 10/10/22 10:08:00 EDT, Capsule, [id number], Partial fill upon patient request if the prescription is for a schedule II opioid drug., 168, cm, 10/10/22 9:07... Start Date: 10/10/22 Status: Ordered fluticasone 27.5 mcg/inh nasal spray 2 sprays, Nares, Both, Daily, PRN for allergy symptoms, # 10 Gm, 0 Refills, Maintenance, 10/12/22 4:42:00 EDT, [place], Partial fill upon patient request if the prescription is for a schedule II opioiddrug. Start Date: 10/12/22 Status: Ordered gabapentin 300 mg oral capsule 300 mg, By Mouth, Daily, # 30 capsule, Refills 0, Tot. Refills 0, Maintenance, 10/10/22 10:08:00 EDT, Route to Pharmacy Electronically, [id number], Partial fill upon patient request if the prescription is for a schedule II opio... Start Date: 10/10/22 Status: Ordered gabapentin 300 mg oral capsule 600 mg, Capsule, By Mouth, 12/23/22 9:00:00 EST Start Date: 12/23/22 Stop Date: 12/23/22 Status: Completed gabapentin 300 mg oral capsule 600 mg, Capsule, By Mouth, 12/23/22 15:00:00 EST Start Date: 12/23/22 Stop Date: 12/23/22 Status: Completed gabapentin 600 mg oral tablet [...] Status: Ordered Lamotrigine 75 mg, By Mouth, Refills 0, Maintenance, 12/23/22 12:05:00 EST, Partial fill upon patient request if the prescription is for a schedule II opioid drug. Start Date: 12/23/22 Status: Ordered lamotrigine 25 mg oral tablet 50 mg, By Mouth, Daily, # 60 tablet, Refills 0, Tot. Refills 0, Maintenance, 10/10/22 10:08:00 EDT,Route to Pharmacy Electronically, [id number], Partial fill upon patient request if the [...] Refills, Maintenance, 10/10/22 10:10:00 EDT, DIS Tablet, [facility]-[id number], Partial fill upon patient request if the [...] oral capsule 2 mg, Capsule, By Mouth, 12/22/22 21:00:00 EST Start Date: 12/22/22 Stop Date: 12/22/22 Status: Completed Robitussin DM Liquid 5 mL, [...] Range]: 1 2 3 Height 168 cm (12/23/22 11:02 AM) 168 cm (12/22/22 6:53 PM) Weight 143 kg (12/23/22 11:02 AM) 143 kg (12/22/22 6:53 PM) Oxygen Saturation [94-100 %] 100 % (12/23/22 3:46 PM) 98 % (12/23/22 11:02 AM) 96 % (12/22/22 9:00 PM) Pulse Rate [55-90 bpm] 82 bpm (12/23/22 3:46 PM) 88 bpm (12/23/22 11:02 AM) 95 bpm *H* (12/22/22 9:00 PM) Body Mass Index [18.5-24.99 kg/m2] 50.67 kg/m2 *>HHI* (12/23/22 11:02 AM) Blood Pressure [90-138/55-84 mm Hg] 133/90mm Hg (12/23/22 3:46 PM) 118/77mm Hg (12/23/22 11:02 AM) 117/72mm Hg (12/22/22 9:03 PM) Respiratory Rate [16-30 br/min] 20 br/min (12/23/22 3:46 PM) 16 br/min (12/23/22 2:36 PM) 16 br/min (12/23/22 11:58 AM) Temperature [96.8-100.4 DegF] 97.2 DegF (12/23/22 3:46 PM) 98.1 DegF (12/23/22 11:02 AM) 98.0 DegF (12/22/22 9:00 PM) Mode of Delivery (Oxygen) Room air (12/23/22 3:46 PM) Room air (12/23/22 11:02 AM) Room air (12/22/22 9:00 PM) Blood pressure sites Arm, right (12/23/22 3:46 PM) Arm, right (12/23/22 11:02 AM) Arm, left (12/22/22 9:00 PM) Temperature Route Temporal (12/23/22 3:46 PM) Temporal (12/23/22 11:02 AM) Temporal (12/22/22 9:00 PM) Dry Weight 143 kg (12/23/22 11:02 AM) 143 kg (12/22/22 6:53 PM) Weight Obtained Via Patient/family state d (12/22/22 6:53 PM) Dry Weight Obtained Via Patient/family s tated (12/22/22 6:53 PM) Social History Social History Type Response Smoking Status 10 or more cigarette s (1/2 pack or more)/day in last 30 days entered on: 09/07/18 Sex Note * Jeremy ESTES, Taty Skaggs: PERFORM Event Display: Patient Education Leaflets Authored Date: [id number] Recognizing Suicide Warning Signs in Yourself ?? 306[address] Recognizing Suicide Warning Signs in Yourself People who are thinking about suicide may not know they are depressed. Certain thoughts, feelings, and actions can be signals that let you know you may need help. The best thing you can do is watch for signs that you may be at risk. Then, ask for help. You can talk with your regular healthcare provider or get help from a mental health provider. Depression Depression is a treatable illness, just like diabetes or heart disease. And like those illnesses, depression is not something that you can just snap out of. To feel better, treatment is needed before depression gets to a point that it can endanger your life. To know if depression is causing you to feel like ending your life, ask yourself: ??? Do I feel worthless, guilty, helpless, or hopeless? Have I been feeling sad, down, or blue on most days? Have I lost interest in my work or people I used to enjoy? Do I have trouble sleeping or do I sleep too much? Do I eat more or lessthan normal? Do I feel tired, weak, and low on energy? Do I feel restless and unable to sitstill? Do I have trouble thinking or making choices? Do I cry more than normal? Do I feel life isn't worth living? ?? Warning signs for suicide Call your healthcare provider or get help right away if you have any of the warning signs below. You can also call a mental health clinic or the suicide prevention lifeline for help and support. Warning signs for suicide include: ??? Thinking often about taking your life ??? Planning how you may attempt it ??? Talking or writing about suicide ??? Feeling that is the only solution to your problems ??? Feeling a pressing need to make out your will or arrange your ??? Giving away things you own ??? Taking part in risky behaviors, such as having sex with someone you don't know, or drinking and driving ??? Buying a lethal weapon, such as a gun, or hoarding medicines that could be used in an overdose ?? Call or text 988 If you are in immediate risk of harming yourself or others, call 988. When you call or text 988, you will be connected to trained crisis counselors. An online chat option is also available. [employer] is free and available 04/09. ?? To learn more For more information about depression and suicide prevention: ??? National Suicide Prevention Lifeline at www.suicidepreventionlifeline.org or 898-075-GLIS (745-666-3599) ??? National [place] on Mental Illness at www.willow.org or 945-635-2693 ??? Mental Health Domenica at www.vtha.org or 730-217-9188 ??? National [place] of Mental Health at www.[facility].nih.gov or 743-544-5449 ?? Last Reviewed Date: 2021 ?? [employer]. All rights reserved. This information is not intended as a substitute for professional medical care. Always follow your healthcare professional's instructions. ?? Patient Care team information Care Team Personnel Name: Natasha Dickey RN Position: [facility] RN Member Role: Primary Care Nurse Name: Anny Arnett Position: [facility] Associate Professional Member Role: PCP Address: Address: [address] [place] [address] Pediatric Emergency Medicine [address] Name: Genesis Lea RN Position: S [...] Care Nurse Name: Christos Godoy RN Position: [facility] RN Member Role: Primary Care Nurse Name: Taty Luna MD Position: [facility] ED Medicine MD Member Role: Admitting Physician Address: Address: [address] [place] [address]- Name: Alejandra Cote RN Position: [facility] ED RN W/OE and Tasks Member Role: Patient Care Provider Care Team Related Persons Name: SHELTER VIDEO GAME TESTERYENI Address: [address] [address] Name: YULIYA MORA Address: home [address] [place] [address] Name: SUNDAY MORA Address: [place] [address]
--- OUTSIDE RECORDS SUMMARY | 2023-06-07 19:12 | XMS_ITS | Continuity of Care Document ---
Author Organization [facility] Address [address] [place] [id number]- Care Team Providers Care Dyeing Machine Back Tender Name Role Phone Katie RILEY, Narda Marian Primary Care Physici an Encounter [facility] Date(s): 02/28/22 - 02/28/[address] [address]- Discharge Disposition: A-D/C Home Attending Physician: Carter [...] 0 Refills, Maintenance, 01/24/22 9:26:00 EST[facility] upon patient request if the prescription is for a schedule II opioid drug., Topically 2... Start Date: 01/24/22 Status: Ordered ARIPiprazole 10 mg oral tablet 20 mg, 2, tablet, By Mouth, Daily, # 60 tablet, Refills 0, Tot. Refills 0, Maintenance, 01/24/22 9:25:00 EST, Route to Pharmacy Electronically, [facility], [place], Partial fill upon patient request if the prescription is for a schedul... Start Date: 01/24/22 Status: Ordered benztropine 1 mg oral tablet 1 mg, 1, tablet, By Mouth, Every 6 hours, PRN, PRN for extrapyramidal symptoms, # 60 tablet, Refills 0, Tot. Refills 0, Maintenance, Other, 01/24/22 9:26:00 EST, Route to Pharmacy Electronically, [facility], [place], Partial fill upon... Start Date: 01/24/22 Status: Ordered diphenhydrAMINE 25 mg oral tablet 2 tablet = 50 mg, By Mouth, 3 times a day, PRN Agitation, to be given with haldol only, # 60 tablet, 0 Refills, Maintenance, 01/24/22 9:26:00 EST, Tablet, [facility] [place], Partialfill upon patient request if the prescription is fo... Start Date: 01/24/22 Status: Ordered gabapentin 300 mg oral capsule 600 mg, 2, capsule, By Mouth, 3 times a day, # 180 capsule, Refills 0, Tot. Refills 0, Maintenance,01/24/22 9:26:00 EST, Route to Pharmacy Electronically, [facility], [place], Partial fill upon patient request if the prescription is f... Start Date: 01/24/22 Status: Ordered haloperidol 5 mg oral tablet 5 mg, 1, tablet, By Mouth, Every 4 hours, PRN, to be given with diphenhydramine, # 60 tablet, Refills 0, Tot. Refills 0, Maintenance, Agitation, 01/24/22 9:26:00 EST, Route to Pharmacy Electronically, [facility] [place], Partial fill... Start Date: 01/24/22 Status: Ordered hydrOXYzine pamoate 25 mg oral capsule 2 capsule = 50 mg, By Mouth, 4 times a day, PRN Anxiety, # 90 capsule, 0 Refills, Maintenance, 01/24/22 9:26:00 EST, Capsule, [facility] [place], Partial fill upon patient request ifthe prescription is for a schedule II opioid drug.,... Start Date: 01/24/22 Status: Ordered lithium 600 mg oral capsule = 600 mg, By Mouth, 2 times a day, # 60 capsule, 0 Refills, Maintenance, 01/24/22 9:27:00 EST, Capsule, [facility] [place], Partial fill upon patient request if the prescription is for a schedule II opioid drug., 168, cm, 01/24/22 7:2... Start Date: 01/24/22 Status: Ordered methylphenidate 54 mg oral tablet, extended release 1 tablet = 54 mg, By Mouth, Daily, # 30 tablet, 0 Refills, Maintenance, 01/24/22 9:27:00 EST, ER Tablet, [facility] [place], Partial fill upon patient request if the prescription is for a schedule II opioid drug., 168, cm, 01/24/22 7:... Start Date: 01/24/22 Status: Ordered ondansetron 4 mg oral tablet, disintegrating = 4 mg, By Mouth, Every 6 hours, PRN Nausea & Vomiting, # 30 capsule, 0 Refills, Maintenance, 01/24/22 9:27:00 EST, Tablet, [facility] [place], Partial fill upon patient request if the prescription is for a schedule II opioid drug., 1... Start Date: 01/24/22 Status: Ordered prazosin 2 mg oral capsule 1 capsule = 2 mg, By Mouth, Daily at bedtime, # 30 capsule, 0 Refills, Maintenance, 01/24/22 9:27:00 EST, Capsule, [facility] [place], Partial fill upon patient request if the prescription is for a schedule II opioid drug., 168, cm, 1... Start Date: 01/24/22 Status: Ordered PROzac 20 mg oral capsule 40 mg, 2, capsule, By Mouth, Daily, # 60 capsule, Refills 0, Tot. Refills 0, Maintenance, 01/24/22 9:26:00 EST, Route to Pharmacy Electronically, [facility] [place], Partial fill upon patient request if the [...] recent to oldest [Reference Range]: 1 Height 160 cm (02/28/22 8:16 PM) Weight 136 kg (02/28/22 8:16 PM) Oxygen Saturation [94-100 %] 98 % (02/28/22 8:16 PM) Pulse Rate [55-90 bpm] 98 bpm *H* (02/28/22 8:16 PM) Blood Pressure [90-138/55-84 mm Hg] 144/ 83mm Hg *H* (02/28/22 8:16 PM) Respiratory Rate [16-30 br/min] 20 br/mi n (02/28/22 8:16 PM) Temperature [96.8-100.4 DegF] 98.2 DegF (02/28/22 8:16 PM) Mode of Delivery (Oxygen) Room air (02/28/22 8:16 PM) Blood pressure sites Arm, right (02/28/22 8:16 PM) Temperature Route Temporal (02/28/22 8:16 PM) Dry Weight 136 kg (02/28/22 8:16 PM) Social History Social History Type Response Smoking Status 10 or more cigarette s (1/2 pack or more)/day in last 30 days entered on: 12/11/20 Sex Note * Carter Shen MD: PERFORM, SIGN, VERIFY Event Display: Patient Education Handout Authored Date: [id number] * Carter Shen MD: PERFORM Event Display: Patient Education Leaflets Authored Date: [id number] Head Injury (Adult) ?? [id number] Head Injury (Adult) You have a head injury. It doesn't appear serious at this time. But symptoms of a more serious problem, such as a mild brain injury (concussion) or bruising or bleeding in the brain, may appear later. For this reason, you or someone caring for you will need to watch for the symptoms listed below. Once you???re home, also be sure to follow any care directions you???re given. Home care Watch??for the following symptoms Seek emergency medical care if you have any of these symptoms over the next hours to days:? Headache that gets worse or doesn't go away ??? Nausea or vomiting ??? Dizziness ??? Sensitivity to light or noise ??? Unusual sleepiness or grogginess ??? Trouble falling asleep ??? Personality changes ??? Vision changes ??? Memory loss ??? Confusion ??? Trouble walking or clumsiness ??? Loss of consciousness (even for a short time) ??? Inability to be awakened ??? Stiff neck ??? Weakness ornumbness in any part of the body ??? Seizures General care ??? If you were prescribed medicines for pain, use them as directed. Note: Don???t take other medicines for pain without talking to your healthcare provider first. ??? To help reduce swelling and pain, apply a cold source to the injured area for up to 20 minutes at a time. Do this as often??as directed. Use a cold pack or bag of ice wrapped in a thin towel. Never apply a cold source directly to the skin. ??? If you are on a blood thinner for a health condition and have a head injury, follow your healthcare provider's specific directions. You are at a higher risk for bleeding fromthe blood thinner, so your provider will talk to you about taking extra precautions. ??? If you have cuts or scrapes as a result of your head injury, care for them as directed. ??? For the next 24 hours??(or longer, if directed): o Don???t drink alcohol or use sedatives or other medicines that makeyou sleepy. o Don???t drive or operate machinery. o Don???t do anything strenuous, such as heavy lifting or straining. o Limit tasks that need concentration. This includes reading, using a smartphone or computer, watching TV, and playing video games. o Don???t return to sports or other activities that could result in another head injury until approved by your healthcare provider. ?? Follow-up care Follow up with your healthcare provider, or as directed.??If imaging tests were done, they will be reviewed by a healthcare provider. You will be told the results and any new findings that may affectyour care. ?? When to seek medical advice Call your healthcare provider right away if any of the following occur: ??? Pain doesn???t get better or gets worse ??? New or increased swelling or bruising ??? Increased redness,??warmth,??drainage, or bleeding from the injured area ??? Fluid drainage or bleeding from the nose or ears ??? Any depression or bony abnormality in the injured area ??? Persistent confusion or lethargy ??? Personalitychanges ??? Bruising behind the ears or bruising around the eyes ?? Last Reviewed Date: 2022 ?? [employer]. All rights reserved. This information is not intended as a substitute for professional medical care. Always follow your healthcare professional's instructions. ?? * Carter Shen MD: PERFORM Event Display: Patient Education Leaflets Authored Date: [id number] Fainting: Uncertain Cause ?? [id number] Fainting: Uncertain Cause Fainting (syncope) is a temporary loss of consciousness. It's often associated with a loss of postural tone. It???s also called passing out. It occurs when blood flow to the brain is less than normal. There are other causes of fainting, too. Near-fainting (near-syncope) is very similar to fainting,but you don???t fully pass out. In most cases, fainting occurs for reasons that aren't necessarily serious or life-threatening. Butit may still be dangerous if you fall or if it occurs while driving. Common triggers of less serious types of fainting include: ??? Sudden fear ??? Pain ??? Nausea ??? Emotional stress ??? Overexertion Suddenly standing up after sitting or lying for a long time can also cause fainting. More serious causes of fainting include: ??? Very slow or very fast heartbeat (arrhythmia) ??? Other types of heart disease, such as heart valve disease or coronary artery disease ??? Dehydration ??? Loss of blood ??? Stroke ??? Ruptured blood vessel in the brain Taking too much high blood pressure medicine can also cause low blood pressure and fainting. Your healthcare provider may be able to tell why you are fainting by reviewing your health history and hearing about your fainting episodes. If the cause of your fainting remains unknown or if your healthcare provider is concerned about a more serious cause he or she may determine that you need further testing. Testing may include: ??? Echocardiogram. This will take ultrasound pictures of your heart to evaluate the heart's structure and function ??? Stress test. This will check for abnormalities with you heart function or heartrhythm with exercise ??? Tilt table test. This evaluates for changes in blood pressure or heart rate when going from a laying position to standing ??? Heart monitoring. This will evaluate for heart rhythms that are too slow or too fast that may be the cause of your fainting ??? Lab tests. This can check for abnormalities in electrolytes, blood counts and other things Home care Follow these guidelines when caring for yourself at home: ??? Rest today. You may go back to your normal activities when you are feeling back to normal. It's best to stay with someone who can check on you for the next 24 hours to watch for another episode of fainting. ??? If you become lightheaded or dizzy, lie down right away and try to prop your feet above the level of your head. Or sit with your head between your knees. ??? Because the provider doesn???t know the exact cause of your faintingor near-fainting spell, it???s possible for you to have another spell without warning. Because of this, don???t drive a car or operate dangerous equipment until your healthcare provider says it's OK to do so. Don???t take a bath alone. Use a shower instead. Don???t swim alone??until your healthcareprovider says that you are no longer in danger of having another fainting spell. ?? Follow-up care Follow up with your healthcare provider, or as advised. Call 911 Call 911 if any of the following occur: ??? Another fainting spell that???s not explained by the common causes listed above ??? Pain in your chest, arm, neck, jaw, back, or belly (abdomen) ??? Shortness of breath ??? Severe headache or seizure ??? Blood in vomit or stools (black or red color) ??? Your heart beats very rapidly, very slowly, or irregularly (palpitations) ??? Weakness in an arm or leg or on 1 side of the face ??? Trouble speaking or seeing ??? Extreme drowsiness, confusion, or dizziness ?? Last Reviewed Date: 2021 ?? 9510-3502 [employer]. All rights reserved. This information is not intended as a substitute for professional medical care. Always follow your healthcare professional's instructions. ?? Patient Care team information Care Team Personnel Name: Natasha Dickey RN Position: [facility] RN Member Role: Primary Care Nurse Name: Lauryn Nolasco Position: S RN Member Role: Primary Care Nurse Name: Blaire Solis RN Position: [facility] RN Member Role: Primary Care Nurse Name: Stefani Pinto RN Position: S RN Member Role: Primary Care Nurse Name: Melissa Stapleton RN Position: S RN Member Role: Primary Care Nurse Name: Ligia Stapleton RN Position: [facility] RN Member Role: Primary Care Nurse Name: Martin Martinez RN Position: [facility] RN Member Role: Primary Care Nurse Name: Narda Wilson NP Position: Reference Physician Member Role: PCP Address: Address: [address] [place] [address]- Name: Mariaelena Collazo RN Position: [facility] RN Member Role: Primary Care Nurse Name: Nikki Croft RN Position: [facility] RN Arleen Member Role: Primary Care Nurse Name: Giana Huntley RN Position: [facility] RN Member Role: Primary Care Nurse Name: John Cuellar RN Position: [facility] RN Member Role: Primary Care Nurse Name: Holly Bowman RN Position: [facility] RN Member Role: Primary Care Nurse Name: Aline Izaguirre RN Position: [facility] RN Member Role: Primary Care Nurse Name: Carter Shen MD Position: [facility] ED Medicine MD Member Role: Admitting Physician Address: Address: [address] [place] [address]- Name: Rivas Bhakta RN Position: [facility] ED RN W/OE and Tasks Member Role: Patient Care Provider Care Team Related Persons Name: [employer] Address: home [address] [place] [address] Name: YULIYA MORA Address: [address] [address] Name: SUNDAY [place]ORA Address: [place] [address]
--- OUTSIDE RECORDS SUMMARY | 2023-06-07 19:12 | XMS_ITS | Continuity of Care Document ---
Author Organization [facility] Address [address] [place] [address]- Care Team Providers Care Mgmt Consultant Name Role Phone Katie RILEY, Narda Fonseca Primary Care Physici an Encounter [facility] Date(s): 12/13/21 - 12/14/[address] [address]- Encounter Diagnosis Self-cutting of wrist(Final) - 12/13/21 Discharge Disposition: A-D/C Home Attending Physician: Mario [...] 11/15/21 10:18:00 EDT, Route to Pharmacy Electronically, [id number], Partial fill upon patient request if the [...] 11/15/21 10:12:00 EDT, [facility] [id number] Partial fill upon patient request if the prescription... Start Date: 11/15/21 Status: Ordered gabapentin 300 mg oral capsule 600 mg, By Mouth, Daily in AM, # 60 capsule, Refills 0, Tot. Refills 0, Maintenance, 11/15/21 10:12:00 EDT, Route to Pharmacy Electronically, [facility] [id number], Partial fill upon patient request if the prescription is for a schedule I... Start Date: 11/15/21 Status: Ordered gabapentin 300 mg oral capsule 600 mg, Capsule, By Mouth, 12/14/21 9:00:00 EDT Start Date: 12/14/21 Stop Date: 12/14/21 Status: Completed haloperidol 5 mg oral tablet 5 mg, 1, tablet, By Mouth, Every 8 hours, PRN, # 90 tablet, Refills 0, Tot. Refills 0, Maintenance,Agitation, 11/15/21 10:12:00 EDT, Route to Pharmacy Electronically, [facility] [id number], Partial fill upon patient request if the prescr... Start Date: 11/15/21 Status: Ordered lithium 600 mg oral capsule = 600 mg, By Mouth, 2 times a day, # 60 capsule, 0 Refills, Maintenance, 11/15/21 10:12:00 EDT, Capsule, [facility]-[id number], Partial fill upon patient request if the prescription is for a schedule II opioid drug., 168, cm, 11/14/21 21:... Start Date: 11/15/21 Status: Ordered metFORMIN 500 mg oral tablet 1 each = 500 mg, By Mouth, 2 times a day, # 60 tablet, 0 Refills, Maintenance, 11/15/21 10:12:00 EDT, [id number] Partial fill upon patient request if the prescriptionis for a schedule II opioid drug., 168, cm, ... Start Date: 11/15/21 Status: Ordered prazosin 2 mg oral capsule 1 capsule = 2 mg, By Mouth, Daily at bedtime, # 30 capsule, 0 Refills, Maintenance, 11/15/21 10:12:00 EDT, [id number] Partial fill upon patient request if the prescription is for a schedule II opioid drug., 168, cm, 1... Start Date: 11/15/21 Status: Ordered PROzac 20 mg oral capsule 40 mg, 2, capsule, By Mouth, Daily, # 60 capsule, Refills 0, Tot. Refills 0, Maintenance, 11/15/21 10:12:00 EDT, Route to Pharm[facility] Electronically, [id number], Partial fill upon patient request if the [...] Range]: 1 2 3 Height 168 cm (12/13/21 5:07 PM) Weight 140 kg (12/13/21 5:07 PM) Oxygen Saturation [94-100 %] 97 % (12/14/21 4:02 PM) 98 % (12/14/21 8:00 AM) 95 % (12/14/21 3:00 AM) Pulse Rate [55-90 bpm] 99 bpm *H* (12/14/21 4:02 PM) 97 bpm *H* (12/14/21 8:00 AM) 72 bpm (12/14/21 3:00 AM) Blood Pressure [90-138/55-84 mm Hg] 121/61mm Hg (12/14/21 4:02 PM) 126/78mm Hg (12/14/21 8:00 AM) 102/40mm Hg (12/14/21 3:00 AM) Respiratory Rate [16-30 br/min] 18 br/min (12/14/21 4:02 PM) 16 br/min (12/14/21 8:03 AM) 18 br/min (12/14/21 3:00 AM) Temperature [96.8-100.4 DegF] 97.6 DegF (12/14/21 4:02 PM) 97.4 DegF (12/14/21 8:00 AM) 98.2 DegF (12/13/21 5:07 PM) Mode of Delivery (Oxygen) Room air (12/14/21 4:02 PM) Room air (12/14/21 8:00 AM) Room air (12/14/21 3:00 AM) Blood pressure sites Arm, right (12/13/21 5:07 PM) Temperature Route Oral (12/14/21 4:02 PM) Oral (12/14/21 8:00 AM) Oral (12/13/21 5:07 PM) Dry Weight 140 kg (12/13/21 5:07 PM) Social History Social History Type Response Smoking Status 10 or more cigarette s (1/2 pack or more)/day in last 30 days entered on: 12/11/20 Sex Patient Care team information Personnel Name: Narda Wilson NP Address: Address: [address] [place] [address] [id number]
--- OUTSIDE RECORDS SUMMARY | 2023-06-07 19:12 | XMS_ITS | Continuity of Care Document ---
Author Organization [facility] Address [address] [place] [address]- Care Team Providers Care New Grad Rn Name Role Phone Katie RILEY, Narda Fonseca Primary Care Physicclaudia an Encounter [facility] Date(s): 02/26/22 - 02/26/[address] [address]- Encounter Diagnosis Headache(Final) - 02/26/22 Discharge Disposition: A-D/C Home Attending Physician: Orlando [...] 0 Refills, Maintenance, 01/24/22 9:26:00 EST, Cream, [facility]-, Partial fill upon patient request if the prescription is for a schedule II opioid drug., Topically 2... Start Date: 01/24/22 Status: Ordered ARIPiprazole 10 mg oral tablet 20 mg, 2, tablet, By Mouth, Daily, # 60 tablet, Refills 0, Tot. Refills 0, Maintenance, 01/24/22 9:25:00 EST, Route to Pharmacy Electronically, [facility], Partial fill upon patient request if the prescription is for a schedul... Start Date: 01/24/22 Status: Ordered benztropine 1 mg oral tablet 1 mg, 1, tablet, By Mouth, Every 6 hours, PRN, PRN for extrapyramidal symptoms, # 60 tablet, Refills 0, Tot. Refills 0, Maintenance, Other, 01/24/22 9:26:00 EST, Route to Pharmacy Electronically, [facility], Partial fill upon... Start Date: 01/24/22 Status: Ordered diphenhydrAMINE 25 mg oral tablet 2 tablet = 50 mg, By Mouth, 3 times a day, PRN Agitation, to be given with haldol only, # 60 tablet, 0 Refills, Maintenance, 01/24/22 9:26:00 EST, Tablet, [facility], Partialfill upon patient request if the prescription is fo... Start Date: 01/24/22 Status: Ordered gabapentin 300 mg oral capsule 600 mg, 2, capsule, By Mouth, 3 times a day, # 180 capsule, Refills 0, Tot. Refills 0, Maintenance,01/24/22 9:26:00 EST, Route to Pharmacy Electronically, [facility], Partial fill upon patient request if the prescription is f... Start Date: 01/24/22 Status: Ordered haloperidol 5 mg oral tablet 5 mg, 1, tablet, By Mouth, Every 4 hours, PRN, to be given with diphenhydramine, # 60 tablet, Refills 0, Tot. Refills 0, Maintenance, Agitation, 01/24/22 9:26:00 EST, Route to Pharmacy Electronically, [facility], Partial fill... Start Date: 01/24/22 Status: Ordered hydrOXYzine pamoate 25 mg oral capsule 2 capsule = 50 mg, By Mouth, 4 times a day, PRN Anxiety, # 90 capsule, 0 Refills, Maintenance, 01/24/22 9:26:00 EST, Capsule, [facility], Partial fill upon patient request ifthe prescription is for a schedule II opioid drug.,... Start Date: 01/24/22 Status: Ordered lithium 600 mg oral capsule = 600 mg, By Mouth, 2 times a day, # 60 capsule, 0 Refills, Maintenance, 01/24/22 9:27:00 EST, Capsule, [facility], Partial fill upon patient request if the prescription is for a schedule II opioid drug., 168, cm, 01/24/22 7:2... Start Date: 01/24/22 Status: Ordered methylphenidate 54 mg oral tablet, extended release 1 tablet = 54 mg, By Mouth, Daily, # 30 tablet, 0 Refills, Maintenance, 01/24/22 9:27:00 EST, ER Tablet, [facility], Partial fill upon patient request if the prescription is for a schedule II opioid drug., 168, cm, 01/24/22 7:... Start Date: 01/24/22 Status: Ordered ondansetron 4 mg oral tablet, disintegrating = 4 mg, By Mouth, Every 6 hours, PRN Nausea & Vomiting, # 30 capsule, 0 Refills, Maintenance, 01/24/22 9:27:00 EST, Tablet, [facility], Partial fill upon patient request if the prescription is for a schedule II opioid drug., 1... Start Date: 01/24/22 Status: Ordered prazosin 2 mg oral capsule 1 capsule = 2 mg, By Mouth, Daily at bedtime, # 30 capsule, 0 Refills, Maintenance, 01/24/22 9:27:00 EST, Capsule, [facility], Partial fill upon patient request if the prescription is for a schedule II opioid drug., 168, cm, 1... Start Date: 01/24/22 Status: Ordered PROzac 20 mg oral capsule 40 mg, 2, capsule, By Mouth, Daily, # 60 capsule, Refills 0, Tot. Refills 0, Maintenance, 01/24/22 9:26:00 EST, Route to Pharmacy Electronically, [facility]-, Partial fill upon patient request if [...] Exam Date Time Procedure Performing Provider Status 02/26/22 5:[address] Head/Brain W/O Contrast Ashley Smith; Auth (Verified) Notes: (CT Head/Brain W/O Contrast) Reason For Exam: Headache(s) RESULT: CT Head/Brain W/O Contrast CT Head/Brain W/O Contrast INDICATION: Hx of Present Illness: Pt discharged from this ED this afternoon to respite, presents back to ED with general c o severe pain in head neck and back.; Reason: Headache(s); Clinical Question(s): Subarachnoid Hemorrhage TECHNIQUE: Noncontrast head CT using axial technique and reconstructed in axial and coronal planes.Iterative reconstruction techniques are used to optimize dose and image quality. CTDIvol Head: 47.90 mGy, DLP Head: 772 mGy*cm. COMPARISON: 12/29/2021. FINDINGS: Separator Inserter view findings, lines and tubes: None. BRAIN [...] clear. Visualized orbits and globes are intact. The extracranial soft tissues are unremarkable. IMPRESSION: No acute intracranial pathology. WSN: [id number] Ordering Physician: Orlando Valiente Dictated By: Cornell Olivas MD Dictated Date/Time: 02/26/22 6:17 pm Reviewed By: Cornell Olivas MD Signed By: Cornell Olivas MD Signed Date/Time: 02/26/22 6:17 pm Transcribed By: DEJON Transcribed Date/Time: 02/26/22 6:15 pm Vital Signs Most recent to oldest [Reference Range]: 1 2 3 Height 167 cm (02/26/22 5:20 PM) 167 cm (02/26/22 5:06 PM) Weight 136 kg (02/26/22 5:20 PM) 136 kg (02/26/22 5:06 PM) Oxygen Saturation [94-100 %] 98 % (02/26/22 7:40 PM) 98 % (02/26/22 5:20 PM) 98 % (02/26/22 5:06 PM) Pulse Rate [55-90 bpm] 129 bpm *H* (02/26/22 7:40 PM) 102 bpm *H* (02/26/22 5:20 PM) 102 bpm *H* (02/26/22 5:06 PM) Body Mass Index [18.5-24.99 kg/m2] 48.76 kg/m2 *>HHI* (02/26/22 5:06 PM) Blood Pressure [90-138/55-84 mm Hg] 118/69mm Hg (02/26/22 7:40 PM) 108/87mm Hg (02/26/22 5:20 PM) 108/87mm Hg (02/26/22 5:06 PM) Respiratory Rate [16-30 br/min] 28 br/min (02/26/22 7:40 PM) 30 br/min (02/26/22 5:20 PM) 30 br/min (02/26/22 5:06 PM) Temperature [96.8-100.4 DegF] 97.9 DegF (02/26/22 7:40 PM) 98.3 DegF (02/26/22 5:20 PM) 98.3 DegF (02/26/22 5:06 PM) Mode of Delivery (Oxygen) Room air (02/26/22 7:40 PM) Room air (02/26/22 5:20 PM) Room air (02/26/22 5:06 PM) Blood pressure sites Arm, right (02/26/22 7:40 PM) Arm, left (02/26/22 5:20 PM) Arm, left (02/26/22 5:06 PM) Temperature Route Temporal (02/26/22 7:40 PM) Femoral (02/26/22 5:20 PM) Temporal (02/26/22 5:06 PM) Dry Weight 136 kg (02/26/22 5:20 PM) Social History Social History Type Response Smoking Status 10 or more cigarette s (1/2 pack or more)/day in last 30 days entered on: 12/11/20 Sex Note * Orlando Valiente DO: PERFORM, SIGN, VERIFY Event Display: Patient Education Handout Authored Date: [id number] * Orlando Valiente DO: PERFORM Event Display: Patient Education Leaflets Authored Date: [id number] Unspecified Headache ?? [id number] Headache, Unspecified A number of things can cause headaches. The cause of your headache isn???t clear. But it doesn???t seem to be a sign of any serious illness. Headache affects almost everyone at some time. It's the most common reason people miss days from work or school. You could have a tension headache or a migraine headache. Stress can cause a tension headache. This can happen if you tense the muscles of your shoulders, neck, and scalp without knowing it. If this stress lasts long enough, you may develop a tension headache. It's not clear why migraines occur, but certain things called triggers can raise the risk of having a migraine attack. Migraine triggers may include emotional stress or depression, or by hormone changes during the menstrual cycle. Other triggers include control pills and other medicines, alcohol or caffeine, foods with tyramine such as aged cheese or wine, eyestrain, weather changes, missed meals, and lack of sleep or oversleeping. Other causes of headache include: ??? Viral illness with high fever ??? Head injury with concussion ??? Sinus, ear, or throat infection ??? Dental pain and jaw joint (TMJ) pain More serious but less common causes of headache include stroke, brain hemorrhage, brain tumor, meningitis, and encephalitis. Home care Follow these tips when taking care of yourself at home: ??? Don???t drive yourself home if you were given pain medicine for your headache. Instead, have someone else drive you home. Try to sleep when you get home. You should feel much better when you wakeup. ??? Apply heat to the back of your neck to ease a neck muscle spasm. Take care of a migraine headache by putting an ice pack on your forehead or at the base of your skull. ??? If you have nausea or vomiting, eat a light diet until your headache eases. ??? If you have a migraine headache, use sunglasses when in the daylight or around bright indoor lighting until your symptoms get better. Bright glaring light can make this type of headache worse. Follow-up care Follow up with your healthcare provider, or as advised. Talk with your provider if you have frequent headaches. They can help figure out a treatment plan. By knowing the earliest signs of headache, and starting treatment right away, you may be able to stop the pain yourself. When to seek medical advice Call your healthcare provider right away??if any of these occur: ??? Your head pain suddenly gets worse after sexual intercourse or strenuous activity ??? Your head pain doesn???t get better within 24 hours ??? You aren???t able to keep liquids down (repeated vomiting) ??? Fever of 100.4??F (38??C)or higher, or as directed by your healthcare provider ??? Stiff neck ??? Extreme drowsiness, confusion, or fainting ??? Dizziness or dizziness with spinning sensation (vertigo) ??? Weakness in an armor leg or one side of your face ??? You have trouble talking or seeing Last Reviewed Date: 2020 ?? [id number] [employer]. All rights reserved. This information is not intended as a substitute for professional medical care. Always follow your healthcare professional's instructions. ?? CT Head WO contrast * SETPHANSPtrinoscricayetano , CIS S: ANGELES Olivas MD, Devrim: VERIFY Event Display: Result: Authored Date: [id number] CT Head/Brain W/O Contrast INDICATION: Hx of Present Illness: Pt discharged from this ED this afternoon to respite, presents back to ED with general c o severe pain in head neck and back.; Reason: Headache(s); Clinical Question(s): Subarachnoid Hemorrhage TECHNIQUE: Noncontrast head CT using axial technique and reconstructed in axial and coronal planes.Iterative reconstruction techniques are used to optimize dose and image quality. CTDIvol Head: 47.90 mGy, DLP Head: 772 mGy*cm. COMPARISON: 12/29/2021. FINDINGS: Separator Inserter view findings, lines and tubes: None. BRAIN [...] clear. Visualized orbits and globes are intact. The extracranial soft tissues are unremarkable. IMPRESSION: No acute intracranial pathology. WSN: [id number] Ordering Physician: Orlando Valiente Dictated By: Cornell Olivas MD Dictated Date/Time: 02/26/22 6:17 pm Reviewed By: Cornell Olivas MD Signed By: Cornell Olivas MD Signed Date/Time: 02/26/22 6:17 pm Transcribed By: DEJON Transcribed Date/Time: 02/26/22 6:15 pm Patient Care team information Care Team Personnel [...] Reference Physician Member Role: PCP Address: Address: [address] [place] [address] Name: Mariaelena Collazo RN Position: S RN Member Role: Primary Care Nurse Name: Nikki Croft RN Position: [facility] RN Supv Member Role: Primary Care Nurse Name: Giana Huntley RN Position: S RN Member Role: Primary Care Nurse Name: John Cuellar RN Position: S RN Member Role: Primary Care Nurse Name: Holly Bowman RN Position: [facility] RN Member Role: Primary Care Nurse Name: Aline Izaguirre RN Position: [facility] RN Member Role: Primary Care Nurse Name: Katerina Godinez RN Position: [facility] ED RN W/OE and Tasks Member Role: Patient Care Provider Name: Orlando Valiente DO Position: [facility] ED Medicine MD Member Role: Admitting Physician Address: Address: [address] [place] [id number]- [place] Care Team Related Persons Name: CUSTODIAL TV TECHNICIANYENI Address: home [address] [place] [id number] Name: YULIYA MORA Address: home [address] [place] [address] Name: SUNDAY MORA Address: [place] [address]
--- OUTSIDE RECORDS SUMMARY | 2023-06-07 19:12 | XMS_ITS | Continuity of Care Document ---
Author Organization [facility] Address [address] [place] [address]- Care Team Providers Care Cross Country/Track And Field Coach Name Role Phone Katie RILEY, Narda Marian Primary Care Physici an Encounter [facility] Date(s): 02/17/22 - 02/17/[address] [address]- Encounter Diagnosis Depression with suicidal ideation(Final) - 02/17/22 Discharge Disposition: A-D/C Home Attending Physician: Glenda [...] 0 Refills, Maintenance, 01/24/22 9:26:00 EST, Cream, [facility]-, Partial fill upon patient request if the prescription is for a schedule II opioid drug., Topically 2... Start Date: 01/24/22 Status: Ordered ARIPiprazole 10 mg oral tablet 20 mg, 2, tablet, By Mouth, Daily, # 60 tablet, Refills 0, Tot. Refills 0, Maintenance, 01/24/22 9:25:00 EST, Route to Pharmacy Electronically, [facility], Partial fill upon patient request if the prescription is for a schedul... Start Date: 01/24/22 Status: Ordered benztropine 1 mg oral tablet 1 mg, 1, tablet, By Mouth, Every 6 hours, PRN, PRN for extrapyramidal symptoms, # 60 tablet, Refills 0, Tot. Refills 0, Maintenance, Other, 01/24/22 9:26:00 EST, Route to Pharmacy Electronically, [facility], Partial fill upon... Start Date: 01/24/22 Status: Ordered diphenhydrAMINE 25 mg oral tablet 2 tablet = 50 mg, By Mouth, 3 times a day, PRN Agitation, to be given with haldol only, # 60 tablet, 0 Refills, Maintenance, 01/24/22 9:26:00 EST, Tablet, [facility]-, Partialfill upon patient request if the [...] Maintenance,01/24/22 9:26:00 EST, Route to Pharmacy Electronically, [facility], Partial fill upon patient request if the prescription is f... Start Date: 01/24/22 Status: Ordered haloperidol 5 mg oral tablet 5 mg, 1, tablet, By Mouth, Every 4 hours, PRN, to be given with diphenhydramine, # 60 tablet, Refills 0, Tot. Refills 0, Maintenance, Agitation, 01/24/22 9:26:00 EST, Route to Pharmacy Electronically, [facility], Partial fill... Start Date: 01/24/22 Status: Ordered hydrOXYzine pamoate 25 mg oral capsule 2 capsule = 50 mg, By Mouth, 4 times a day, PRN Anxiety, # 90 capsule, 0 Refills, Maintenance, 01/24/22 9:26:00 EST, Capsule, [facility], Partial fill upon patient request ifthe prescription is for a schedule II opioid drug.,... Start Date: 01/24/22 Status: Ordered lidocaine 5% topical ointment See Instructions, Topically 3 times a day to affected areas for pain, # 3 Gm, 0 Refills, Acute 02/23/22 8:00:00 EST, 01/23/22 15:33:00 EST, Ointment, [facility], Partial fillupon patient request if the prescription is for a s... Start Date: 01/23/22 Stop Date: 02/23/22 Status: Ordered lidocaine 5% topical ointment See Instructions, Topically 3 times a day to affected areas for pain, # 3 Gm, 0 Refills, Acute 02/24/22 8:00:00 EST, 02/23/22 8:00:00 EST, Ointment, [facility], Partial fill upon patient request if the prescription is for a sc... Start Date: 02/23/22 Stop Date: 02/24/22 Status: Ordered lithium 600 mg oral capsule = 600 mg, By Mouth, 2 times a day, # 60 capsule, 0 Refills, Maintenance, 01/24/22 9:27:00 EST, Capsule, [facility], Partial fill upon patient request if the prescription is for a schedule II opioid drug., 168, cm, 01/24/22 7:2... Start Date: 01/24/22 Status: Ordered methylphenidate 54 mg oral tablet, extended release 1 tablet = 54 mg, By Mouth, Daily, # 30 tablet, 0 Refills, Maintenance, 01/24/22 9:27:00 EST, ER Tablet, [facility], Partial fill upon patient request if the prescription is for a schedule II opioid drug., 168, cm, 01/24/22 7:... Start Date: 01/24/22 Status: Ordered ondansetron 4 mg oral tablet, disintegrating = 4 mg, By Mouth, Every 6 hours, PRN Nausea & Vomiting, # 30 capsule, 0 Refills, Maintenance, 01/24/22 9:27:00 EST, Tablet, [facility]-, Partial fill upon patient request if the prescription is for a schedule II opioid drug., 1... Start Date: 01/24/22 Status: Ordered prazosin 2 mg oral capsule 1 capsule = 2 mg, By Mouth, Daily at bedtime, # 30 capsule, 0 Refills, Maintenance, 01/24/22 9:27:00 EST, Capsule, [facility]-, Partial fill upon patient request if the prescription is for a schedule II opioid drug., 168, cm, 1... Start Date: 01/24/22 Status: Ordered PROzac 20 mg oral capsule 40 mg, 2, capsule, By Mouth, Daily, # 60 capsule, Refills 0, Tot. Refills 0, Maintenance, 01/24/22 9:26:00 EST, Route to Pharmacy Electronically, [facility]-, Partial fill upon patient request [...] oldest [Reference Range]: 1 Height 168 cm (02/17/22 3:10 AM) Weight 134.5 kg (02/17/22 3:10 AM) Oxygen Saturation [94-100 %] 98 % (02/17/22 3:10 AM) Pulse Rate [55-90 bpm] 78 bpm (02/17/22 3:10 AM) Blood Pressure [90-138/55-84 mm Hg] 114/ 67mm Hg (02/17/22 3:10 AM) Respiratory Rate [16-30 br/min] 22 br/mi n (02/17/22 3:10 AM) Temperature [96.8-100.4 DegF] 97.9 DegF (02/17/22 3:10 AM) Mode of Delivery (Oxygen) Room air (02/17/22 3:10 AM) Dry Weight 134.5 kg (02/17/22 3:10 AM) Social History Social History Type Response Smoking Status 10 or more cigarette s (1/2 pack or more)/day in last 30 days entered on: 12/11/20 Sex Note * Fransisco ESTES, Glenda Mcgill: PERFORM Event Display: Patient Education Leaflets Authored Date: [id number] Depression ?? [id number] Depression Depression is a very common mental [...] medicines you take. This includes prescription and edgf-ucp-afipkua medicines. It includes vitamins and herbal supplements. [...] An online chat option is also available. [employer] is free and available 04/09. 988 counselors [...] help ?? Last Reviewed Date: 2021 ?? [id number] [employer]. All rights reserved. This information is not intended as a substitute for professional medical care. Always follow your healthcare professional's instructions. ?? Patient Care team information Care Team Personnel Name: Natasha Dickey RN Position: [facility] RN Member Role: Primary Care Nurse Name: Lauryn Nolasco Position: [facility] RN Member Role: Primary Care Nurse Name: Blaire Solis RN Position: [facility] RN Member Role: Primary Care Nurse [...] Reference Physician Member Role: PCP Address: Address: [address] [place] [address] Name: Mariaelena Collazo RN Position: S RN Member Role: Primary Care Nurse Name: Nikki Croft RN Position: [facility] RN Supv Member Role: Primary Care Nurse Name: Giana Huntley RN Position: S RN Member Role: Primary Care Nurse Name: John Cuellar RN Position: [facility] RN Member Role: Primary Care Nurse Name: Holly Bowman RN Position: [facility] RN Member Role: Primary Care Nurse Name: Aline Izaguirre RN Position: [facility] RN Member Role: Primary Care Nurse Name: Glenda Moody MD Position: [facility] ED Medicine MD Member Role: Admitting Physician Address: Address: [address] [place] [address]- Name: Yohannes García RN Position: [facility] ED RN W/OE and Tasks Member Role: Patient Care Provider Care Team Related Persons Name: [employer] PL[employer] SALES AGENTYENI Address: home [address] [place] [address] Name: YULIYA MORA Address: home [address] [place] [address] Name: SUNDAY MORA Address: [place] [address]
--- OUTSIDE RECORDS SUMMARY | 2023-06-07 19:12 | XMS_ITS | Continuity of Care Document ---
Author Organization [facility] Address [address] [place] [address]- Care Team Providers Care Building Architectural Designer Name Role Phone Yovanny RILEY, Nikki Primary Care Physician [phone] [place] [facility] [place](s): 05/31/23 - 05/31/[address] [address]- Discharge Disposition: A-D/C Home Attending Physician: Misty [...] 0 Refills, Maintenance, 04/03/23 8:17:00 EST, Tablet, [facility]-[id number], Partial fill upon patient request if the prescription is for a schedule II opioid drug., 167, cm, 04/02/23 20:... Start Date: 04/03/23 Status: Ordered duloxetine 60 mg oral enteric coated capsule = 60 mg, By Mouth, Daily, # 30 capsule, 0 Refills, Maintenance, 04/03/23 8:17:00 EST, Capsule, [facility]-[id number], Partial fill upon patient request if the prescription is for a schedule II opioid drug., 167, cm, 04/02/23 20:16:00 EST,... Start Date: 04/03/23 Status: Ordered haloperidol 5 mg oral tablet 5 mg, By Mouth, Daily, # 30 tablet, Refills 0, Tot. Refills 0, Maintenance, 04/03/23 8:19:00 EST, Route to Pharmacy Electronically, [facility]-[id number], Partial fill upon patient request if the prescription is for a schedule II opioid d... Start Date: 04/03/23 Status: Ordered haloperidol 5 mg oral tablet 5 mg, By Mouth, 2 times a day, PRN, # 60 tablet, Refills 0, Tot. Refills 0, Maintenance, Anxiety, 04/03/23 8:20:00 EST, Route to Pharmacy Electronically, [facility]-[id number], Partial fill upon patient request if the [...] Refills, Maintenance, 04/03/23 8:17:00 EST, ER Tablet, [facility]-[id number], Partial fill upon patient request if the [...] 04/03/23 8:18:00 EST, Route to Pharmacy Electronically, [facility]-[id number], Partial fill upon patient request if the prescription is for a schedule... Start Date: 04/03/23 Status: Ordered topiramate 50 mg oral tablet = 150 mg, By Mouth, Daily at bedtime, # 90 tablet, 0 Refills, Maintenance, 04/03/23 8:18:00 EST, Tablet, [facility]-[id number], Partial fill upon patient request if the prescription is for a schedule II opioid drug., 167, cm, 04/02/23 20:... Start Date: 04/03/23 Status: Ordered traZODone 50 mg oral tablet 50 mg, By Mouth, Daily at bedtime, PRN, # 30 tablet, Refills 0, Tot. Refills 0, Maintenance, Sleep,04/03/23 8:19:00 EST, Route to Pharmacy Electronically, [facility]-[id number], Partialfill upon patient request if the prescription [...] [Reference Range]: 1 2 Height 168 cm (05/31/23 7:17 AM) 168 cm (05/31/23 7:14 AM) Weight 140.7 kg (05/31/23 7:17 AM) 140.7 kg (05/31/23 7:14 AM) Oxygen Saturation [94-100 %] 97 % (05/31/23 7:14 AM) Pulse Rate [55-90 bpm] 107 bpm *H* (05/31/23 7:14 AM) Body Mass Index [18.5-24.99 kg/m2] 49.85 kg/m2 *>HHI* (05/31/23 7:14 AM) Blood Pressure [90-138/55-84 mm Hg] 135/ 95mm Hg (05/31/23 7:14 AM) Respiratory Rate [16-30 br/min] 16 br/mi n (05/31/23 7:14 AM) Temperature [96.8-100.4 DegF] 97.3 DegF (05/31/23 7:14 AM) Mode of Delivery (Oxygen) Room air (05/31/23 7:14 AM) Blood pressure sites Arm, right (05/31/23 7:14 AM) Temperature Route Temporal (05/31/23 7:14 AM) Dry Weight 140.7 kg (05/31/23 7:17 AM) Weight Obtained Via Patient/family state d (05/31/23 7:17 AM) Dry Weight Obtained Via Patient/family s tated (05/31/23 7:17 AM) Social History Social History Type Response [...] Care Nurse Name: Maegan Diaz RN Position: [facility] RN Member Role: Primary Care Nurse Name: Genesis Lea RN Position: [facility] RN Member Role: Primary Care Nurse Name: Nikki Hairston NP Position: [facility] PCO Associate Professional Member Role: PCP Address: Address: [address] [place] [id number]- Name: Alejandra Gilbert [facility] Care Nurse Name: Fatoumata Loyd RN Position: [facility] RN Member Role: Primary Care Nurse Name: Melissa Stapleton RN Position: [facility] RN Member Role: Primary Care Nurse Name: Ligia Stapleton RN Position: [facility] RN Member Role: Primary Care Nurse Name: Melissa Davison RN Position: [facility] RN [...] Care Nurse Care Team Related Persons Name: USP KNUCKLE BENDERYENI Address: home [address] [place] [address] Name: MORGANYULIYA Address: home [address] [place] [address] Name: MORGANTRINHE Address: home [address] [place] [address]
--- OUTSIDE RECORDS SUMMARY | 2023-06-07 19:12 | XMS_ITS | Continuity of Care Document ---
Author Organization [facility] Address [address] [place] [address]- Care Team Providers Care Pattern Room Attendant Name Role Phone Katie RILEY, Narda Marian Primary Care Physici an Encounter [facility] [place] Date(s): 04/29/21 - 04/30/[address] [address]- Discharge Disposition: A-D/C Home Attending Physician: Glenda [...] 05/26/21 11:03:00 EDT, 04/26/21 11:03:00 EDT, Tablet, [facility]-[id number], Par... Start Date: 04/26/21 Stop Date: 05/26/21 Status: Ordered lithium 300 mg oral tablet, extended release 2 tablet = 600 mg, By Mouth, 2 times a day, # 120 tablet, 1 Refills, Maintenance, 11/15/20 15:50:00EDT, ER Tablet, [facility]- [id number], Partial fill upon patient request if the prescription is for a schedule II opioid drug., 168, cm, 1... Start Date: 11/15/20 Status: Ordered ondansetron 8 mg oral tablet, disintegrating 1 tablet = 8 mg, By Mouth, Every 8 hours, PRN Nausea, # 12 tablet, 0 Refills, Acute 05/04/21 0:45:00 EDT, 04/30/21 0:45:00 EDT, DIS Tablet, [facility]-[id number], Partial fill upon patient request if the prescription is for a schedule II... Start Date: 04/30/21 Stop Date: 05/04/21 Status: Ordered prazosin 2 mg oral capsule 1 capsule = 2 mg, By Mouth, Daily at bedtime, takes with 5 mg prazosin, # 30 capsule, 1 Refills, Maintenance, 11/15/20 15:50:00 EDT, Capsule, [facility]-[id number], Partial fill upon patient request if the prescription is for a schedule I... Start Date: 11/15/20 Stop Date: 01/14/21 Status: Ordered prazosin 5 mg oral capsule 5 mg, 1, capsule, By Mouth, Daily at bedtime, # 30 capsule, Refills 1, Tot. Refills 1, Maintenance,11/15/20 15:50:00 EDT, Route to Pharmacy Electronically, [facility]-[id number], Partial fill upon patient request if the prescription is f... Start Date: 11/15/20 Stop Date: 01/14/21 Status: Ordered PROzac 40 mg oral capsule 1 capsule = 40 mg, By Mouth, Daily, # 30 capsule, 1 Refills, Maintenance, 11/15/20 15:50:00 EDT, Capsule, [facility]-[id number], Partial fill upon patient request if the [...] 0 Refills, Maintenance, 04/26/21 11:02:00 EDT, Tablet, [facility]-[id number], Partial fill upon patient request if the prescription is fora schedule II opioid drug., 170, cm, 04/26/21 8:31:... Start Date: 04/26/21 Status: Ordered traZODone 150 mg oral tablet 1 tablet = 150 mg, By Mouth, Daily at bedtime, # 30 tablet, 0 Refills, Maintenance, 11/15/20 15:50:00 EDT, Tablet, [facility]-[id number], Partial fill upon patient request if the prescription is for a schedule II opioid drug., 168, cm, 10... Start Date: 11/15/20 Status: Ordered Problem List Condition Effective Dates Status Health Status Inform ant Depression(Confirmed) Active Severe obesity(Confirmed) Active Tobacco dependence(Confirmed) Active Vital Signs Most recent to oldest [Reference Range]: 1 2 Height 168 cm (04/30/21 1:32 AM) 168 cm (04/29/21 10:41 PM) Weight 138.5 kg (04/30/21 1:32 AM) 138.5 kg (04/29/21 10:41 PM) Oxygen Saturation [94-100 %] 95 % (04/30/21 1:32 AM) 98 % (04/29/21 10:50 PM) Pulse Rate [55-90 bpm] 64 bpm (04/30/21 1:32 AM) 78 bpm (04/29/21 10:50 PM) Body Mass Index [18.5-24.99] 49.07 *>HHI* (04/30/21 1:32 AM) Blood Pressure [90-138/55-84 mm Hg] 110/ 65mm Hg (04/30/21 1:32 AM) 117/70mm Hg (04/29/21 10:50 PM) Respiratory Rate [16-30 br/min] 24 br/mi n (04/30/21 1:32 AM) 18 br/min (04/29/21 10:50 PM) Temperature [96.8-100.4 DegF] 97.7 DegF (04/30/21 1:32 AM) 98.1 DegF (04/29/21 10:50 PM) Mode of Delivery (Oxygen) Room air (04/30/21 1:32 AM) Blood pressure sites Arm, left (04/30/21 1:32 AM) Temperature Route Temporal (04/30/21 1:32 AM) Oral (04/29/21 10:50 PM) Dry Weight 138.5 kg (04/30/21 1:32 AM) 138.5 kg (04/29/21 10:41 PM) Social History Social History Type Response Smoking Status 10 or more cigarette s (1/2 pack or more)/day in last 30 days entered on: 12/11/20 Sex
--- OUTSIDE RECORDS SUMMARY | 2023-06-07 19:12 | XMS_ITS | Continuity of Care Document ---
Author Organization [facility] Address [address] [place] [address]- Care Team Providers Care Product Picker Name Role Phone Katie RILEY, Nardajuan j Fonseca Primary Care Physici an Encounter [facility] [place] Date(s): 06/14/20 - 06/21/[address] [address]- Discharge Disposition: A-D/C Home Attending Physician: Parminder [...] 0 Refills, Maintenance, 04/22/20 14:44:00 EST, Capsule, [facility]-, Partial fill upon patient request if the prescription is for a schedule... Start Date: 04/22/20 Stop Date: 05/22/20 Status: Ordered prazosin 5 mg oral capsule 7 mg, Capsule, By Mouth, 06/20/20 21:00:00 EDT Start Date: 06/20/20 Stop Date: 06/20/20 Status: Completed prazosin 5 mg oral capsule 5 mg, 1, capsule, By Mouth, Daily at bedtime, # 30 capsule, Refills 0, Tot. Refills 0, Maintenance,04/22/20 14:44:00 EST, Route to Pharmacy Electronically, [facility]-, Partial fill upon patient request if the [...] Range]: 1 2 3 Height 168 cm (06/21/20 2:39 PM) 168 cm (06/20/20 2:26 PM) 168 cm (06/20/20 6:26 AM) Weight 137.5 kg (06/21/20 2:39 PM) 137.5 kg (06/20/20 2:26 PM) 137.5 kg (06/20/20 6:26 AM) Oxygen Saturation [94-100 %] 98 % (06/21/20 2:39 PM) 97 % (06/21/20 9:04 AM) 97 % (06/20/20 8:47 PM) Pulse Rate [55-90 bpm] 120 bpm *H* (06/21/20 2:39 PM) 118 bpm *H* (06/21/20 9:04 AM) 100 bpm *H* (06/20/20 8:47 PM) Body Mass Index [18.5-24.99] 48.72 *>HHI* (06/21/20 2:39 PM) 48.72 *>HHI* (06/20/20 2:26 PM) 48.72 *>HHI* (06/20/20 6:26 AM) Blood Pressure [90-138/55-84 mm Hg] 114/92mm Hg (06/21/20 2:39 PM) 128/74mm Hg (06/21/20 9:00 AM) 109/74mm Hg (06/20/20 8:47 PM) Respiratory Rate [16-30 br/min] 18 br/min (06/21/20 2:39 PM) 20 br/min (06/21/20 9:04 AM) 18 br/min (06/21/20 7:30 AM) Temperature [96.8-100.4 DegF] 98.3 DegF (06/21/20 2:39 PM) 98.5 DegF (06/21/20 9:04 AM) 98.1 DegF (06/20/20 8:47 PM) Mode of Delivery (Oxygen) Room air (06/21/20 2:39 PM) Room air (06/21/20 9:04 AM) Room air (06/20/20 8:47 PM) Blood pressure sites Arm, right (06/21/20 2:39 PM) Arm, right (06/20/20 8:47 PM) Arm, right (06/20/20 2:26 PM) Temperature Route Oral (06/21/20 2:39 PM) Oral (06/21/20 9:04 AM) Oral (06/20/20 8:47 PM) Dry Weight 137.5 kg (06/21/20 2:39 PM) 137.5 kg (06/20/20 2:26 PM) 137.5 kg (06/20/20 6:26 AM) Social History Social History Type Response Smoking Status 10 or more cigarette s (1/2 pack or more)/day in last 30 days entered on: 09/07/18 Sex
--- OUTSIDE RECORDS SUMMARY | 2023-06-07 19:12 | XMS_ITS | Continuity of Care Document ---
Author Organization [facility] Address [address] [place] [address]- Care Team Providers Care Emergency Preparedness Manager Name Role Phone Katie RILEY, Narda Marian Primary Care Physici an [place] [facility] [place](s): 07/25/20 - 07/25/[address] [address]- Discharge Disposition: A-D/C Home Attending Physician: Mario [...] 0 Refills, Maintenance, 07/22/20 17:31:00 EDT, Tablet, [facility]-, Partial fill upon patient request if the prescription is for a schedule II opioid drug., 168, cm, ... Start Date: 07/22/20 Status: Ordered ibuprofen 600 mg oral tablet 600 mg, 1, tablet, By Mouth, 4 times a day, PRN, # 30 tablet, Refills 0, Tot. Refills 0, Maintenance, for pain, 07/22/20 17:32:00 EDT, Route to Pharmacy Electronically, [facility]-, [...] 0 Refills, Maintenance, 04/22/20 14:44:00 EST, Capsule, [facility]-, Partial fill upon patient request if the prescription is for a schedule... Start Date: 04/22/20 Stop Date: 05/22/20 Status: Ordered prazosin 5 mg oral capsule 5 mg, 1, capsule, By Mouth, Daily at bedtime, # 30 capsule, Refills 0, Tot. Refills 0, Maintenance,04/22/20 14:44:00 EST, Route to Pharmacy Electronically, [facility] [...] Exam Date Time Procedure Performing Provider Status 07/25/20 9:28 PM Lumbar Spine 2 or 3 Views Cornelio Smith; Auth (Verified) Notes: (Lumbar Spine 2 or 3 Views) Reason For Exam: with Pain;Trauma RESULT: Lumbar Spine 2 or 3 Views Lumbar Spine 2 or 3 Views CLINICAL INDICATION: Hx of Present Illness: PT FELL HAS LOWER BACK PAIN , NO LOSS OF CONTROLL OF BOWEL OR BLADER ,; Reason: Trauma; with Pain; Clinical Question(s): Fracture Dislocation COMPARISONS: 07/22/2020 TECHNIQUE: AP, lateral, and coned down LS junction views were obtained. FINDINGS: There are 5 nonrib-bearing lumbar type vertebra. Lumbar vertebral body heights are maintained. There is no toño-or retrolisthesis. Disc space heights are maintained. No fracture. Cholecystectomy clips are noted in the right upper quadrant. IMPRESSION: No lumbar spine fracture. No significant degenerative changes. WSN: [id number] Ordering Physician: Mario Alberto Colon Dictated By: Madhav Hernandes MD Dictated Date/Time: 07/25/20 9:35 pm Reviewed By: Madhav Hernandes MD Signed By: Madhav Hernandes MD Signed Date/Time: 07/25/20 9:35 pm Transcribed By: DEJON Transcribed Date/Time: 07/25/20 9:34 pm Vital Signs Most recent to oldest [Reference Range]: 1 2 Height 168 cm (07/25/20 8:16 PM) Weight 136.5 kg (07/25/20 8:16 PM) Oxygen Saturation [94-100 %] 98 % (07/25/20 8:16 PM) Pulse Rate [55-90 bpm] 119 bpm *H* (07/25/20 9:43 PM) 140 bpm *H* (07/25/20 8:16 PM) Blood Pressure [90-138/55-84 mm Hg] 113/ 69mm Hg (07/25/20 8:16 PM) Respiratory Rate [16-30 br/min] 18 br/mi n (07/25/20 8:16 PM) Temperature [96.8-100.4 DegF] 97.1 DegF (07/25/20 8:16 PM) Mode of Delivery (Oxygen) Room air (07/25/20 8:16 PM) Temperature Route Oral (07/25/20 8:16 PM) Dry Weight 136.5 kg (07/25/20 8:16 PM) Social History Social History Type Response Smoking Status 10 or more cigarette s (1/2 pack or more)/day in last 30 days entered on: 09/07/18 Sex
[2023-06-07 19:54] VITALS: BMI 51.9
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
[2023-06-07] MEDS: OLANZapine 5 MG TABLET PO (22:08)
[2023-06-07] MEDS: Topiramate 25 MG TABLET 150 MG PO (22:08)
[2023-06-07] MEDS: Prazosin HCL 1 MG CAPSULE PO (22:08)
[2023-06-07] MEDS: hydrOXYzine HCL 25 MG TABLET PO (22:08)
[2023-06-07] MEDS: traZODone HCL 50 MG TABLET PO (22:08)
--- NOTE | 2023-06-07 23:11 | PC.ADMIT ---
Idris arrived to the unit, appeared tearful after skin check they ran into the kitchen and started banging her head, staff support offered, they stated I'm suicidal, reported that they were on a 1:1 before coming here, stated I don't feel safe, I will wrap a blanket around my neck, Dr. Saeed notified, Idris was put on a 1:1 for safety. They reported feeling anxious, when asked if they would seek out staff if urge to hurt self occurred stated I'll try, encourage to seek out staff. Per assessment Idris has been struggling to adjust to their GLE since March when they moved in, due to needing higher level of care due to unsafe behaviors, they had reported to staff about self harm behaviors prior to arriving to the hospital, they then called crisis and told them they had overdose on Tylenol. Idris declined to participate in the admission process stated I'm not in a good space right now.
[2023-06-08 08:00] VITALS: BP 112/64; PULSE 68; RESP 16; TEMP 36.4; O2SAT 98
[2023-06-08] MEDS: HaloperidoL 5 MG TABLET PO ×2 (08:28→18:01)
[2023-06-08] MEDS: Lidocaine 4 % Patch ADH..PATCH 1 PATCH TRANSDERMA (08:28)
[2023-06-08] MEDS: DULoxetine HCl 60 MG CAPSULE.DR PO (08:28)
[2023-06-08 09:37] LABS: Cholesterol 200 mg/dL (<200); HDL Cholesterol 48 mg/dL (>40); LDL Cholesterol Calculated 113 mg/dL (<100); Magnesium 1.9 mg/dL (1.6-2.6); Triglycerides 199 mg/dL (<150)
[2023-06-08 09:51] LABS: Free T4 (Free Thyroxine) 0.85 ng/dL (0.71-1.85); Thyroid Stimulating Hormone 1.21 uIU/mL (0.32-4.0)
[2023-06-08 12:38] LABS: Folate 6.6 ng/mL (> or = 4.0); Vitamin B12 650 pg/mL (200-900)
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
--- NOTE | 2023-06-08 15:56 | HO.PM.IMCN ---
History of Present Illness Data of Consult Service Date: 06/08/23 Primary Care Provider: BECKY Gtz HPI Reason for consult: Admission H&P Pt is a 22-year-old transgender male (prefers be called Aslynn) with a PMH significant for?chronic back and knee pain, borderline personality disorder, and depression who is admitted to [facility] psychiatry unit for increasing depression with suicide attempt by intentional overdose on Tylenol. Pt was initially treated in the ED with acetylcysteine infusion, charcoal, and IVF. Was sent to ICU for close monitoring where they were clinically and hemodynamically stable. Transferred to the medical floor and cleared by poison control. Medical consult for admission H&P. Pt complains of chronic lower back and bilateral knee pain, though has no acute medical complaints. Denies chest pain/pressure or palpitations. No SOB. Denies fever, chills, N/V/D, or abdominal pain. No headache or acute vision changes. Labs reviewed, grossly unremarkable. Vital signs stable. Review of Systems Review of Systems: Chronic knee and back pain Pt otherwise has no acute medical complaints at this time [facility] Social History Household Members: Other Household Members Other:: GLE Housing: Other Housing Other:: GLE Do you presently have visiting nurse or other home services: No Alcohol intake: never Comment: patient on 1:1 obs Patient Tobacco Use Status: Current everyday Tobacco user Tobacco use type: Smokeless Tobacco Smoked in Last 30 Days: Yes e-Cigarette/Vaping Use: Currently Using Frequency of e-Cigarette/Vaping Use: often Patient Interested in Nicotine Replacement: No Patient Given Instructions on How to Stop Smoking: Yes Date Education Initiated: 06/08/23 Second Hand Smoke Exposure: No Use of substances other than those prescribed or required for medical reasons: No Substance Use Type: Marijuana Currently Displaying Signs/Symptoms of Drug Intoxication Withdrawal: No Any prior treatment program specific to substance use: No Have you been hit, kicked, punched, or otherwise hurt by someone within the past year? If so, by whom?: No Do you feel safe in your current relationship?: No Current Relationship Is there a partner from a previous relationship who is making you feel unsafe now?: No Are you made to feel afraid or neglected: No Advance Directives: No Advance Directives Information Provided: No Do you have thoughts of harming others: None Do you have a plan to hurt others: No Plan Recently lost weight without trying: No How much weight loss: Not applicable Eating poorly because of decreased appetite: No Nutrition screen score: 0 Nutrition Risks: No Nutritional Risk Patient : No : No Poor oral hygiene: No Meds Allergies Allergy/AdvReac Type Severity Reaction Status Date / Time chlorpromazine Allergy Rash Verified 06/07/23 20:58 [From Thorazine] oxcarbazepine Allergy Unknown Verified 06/07/23 20:58 [From Trileptal] ziprasidone [From Geodon] Allergy Unknown Verified 06/07/23 20:58 Active Medications: Current Medications Al Hydroxide/Mg Hydroxide (Magnesium Hydrox/Alum Hydrox 30 Ml Oral.Susp) 30 ml PO Q6H PRN PRN Reason: Heartburn/Nausea Duloxetine HCl (Duloxetine Hcl 60 Mg Capsule.Dr) 60 mg PO DAILY [facility] Last Admin: 06/08/23 08:28 Dose: 60 mg Haloperidol (Haloperidol 5 Mg Tablet) 5 mg PO BID PRN PRN Reason: Anxiety Haloperidol (Haloperidol 5 Mg Tablet) 5 mg PO DAILY BETZY Last Admin: 06/08/23 08:28 Dose: 5 mg Hydroxyzine HCl (Hydroxyzine Hcl 25 Mg Tablet) 25 mg PO Q6H PRN PRN Reason: Anxiety Last Admin: 06/07/23 22:08 Dose: 25 mg Lidocaine (Lidocaine 4 % Patch Adh..Patch) 1 patch TRANSDERMA DAILY [facility]ZY Last Admin: 06/08/23 08:28 Dose: 1 patch Magnesium Hydroxide (Milk Of Magnesia 30 Ml Oral.Susp) 30 ml PO DAILY PRN PRN Reason: Constipation Non-Formulary Medication (Desmopressin) 0.2 mg PO BEDTIME BETZY Non-Formulary Medication (Methylphenidate Hcl) 27 mg PO DAILY [facility] Olanzapine (Olanzapine 5 Mg Tablet) 5 mg PO Q4H PRN PRN Reason: agitation Last Admin: 06/07/23 22:08 Dose: 5 mg Prazosin HCl (Prazosin Hcl 1 Mg Capsule) 1 mg PO BEDTIME BETZY; Protocol Last Admin: 06/07/23 22:08 Dose: 1 mg Topiramate (Topiramate 25 Mg Tablet) 150 mg PO BEDTIME BETZY Last Admin: 06/07/23 22:08 Dose: 150 mg Trazodone HCl (Trazodone Hcl 50 Mg Tablet) 50 mg PO BEDTIME MRX1 PRN PRN Reason: Insomnia Last Admin: 06/07/23 22:08 Dose: 50 mg Home Medications ?Medication ?Instructions ?Recorded ?Confirmed ?Last Taken ?Type acetaminophen 325 mg tablet 650 mg PO Q6H PRN Pain 06/07/23 06/07/23 Unknown History desmopressin 0.1 mg tablet 0.2 mg PO BEDTIME 06/07/23 06/07/23 Unknown History duloxetine 20 mg capsule,delayed 20 mg PO DAILY 06/07/23 06/07/23 Unknown History release duloxetine 60 mg capsule,delayed 60 mg PO DAILY 06/07/23 06/07/23 Unknown History release haloperidol 5 mg tablet 5 mg PO BID PRN Anxiety 06/07/23 06/07/23 Unknown History haloperidol 5 mg tablet 5 mg PO DAILY 06/07/23 06/07/23 Unknown History ibuprofen 400 mg tablet 400 mg PO TID PRN Pain 06/07/23 06/07/23 Unknown History lidocaine 5 % topical patch 1 patch topical DAILY 06/07/23 06/07/23 Unknown History methylphenidate HCl 27 mg 27 mg PO DAILY 06/07/23 06/07/23 Unknown History tablet,extended release 24 hr prazosin 1 mg capsule 1 mg PO BEDTIME 06/07/23 06/07/23 Unknown History topiramate 25 mg tablet 25 mg PO BEDTIME 06/07/23 06/07/23 Unknown History topiramate 50 mg tablet 150 mg PO BEDTIME 06/07/23 06/07/23 Unknown History trazodone 50 mg tablet 50 mg PO BEDTIME PRN Sleep 06/07/23 06/07/23 Unknown History Physical Exam Vital Signs and Narrative: Vital Signs: Last Vital Signs Temp 97.6 F 06/08/23 08:00 Pulse 68 06/08/23 08:00 Resp 16 06/08/23 08:00 BP 112/64 06/08/23 08:00 Pulse Ox 98 06/08/23 08:00 O2 Del Method Room Air 06/08/23 08:00 BMI result Body Mass Index 51.9 General: AOx3, no acute distress Resp: CTA bilaterally CVS: S1, S2, RRR GI: +BS, NT, no distention, obese Skin: Warm, dry Neuro: Cranial nerves II-XII grossly intact bilaterally. Motor grossly intact bilaterally Extremities: No edema Psych: Flat affect with minimal eye contact Results Labs Labs: Laboratory Results - last 24 hr 06/08/23 08:55 Magnesium 1.9 Triglycerides 199 H Cholesterol 200 H LDL Cholesterol, Calc 113 H HDL Cholesterol 48 Vitamin B12 650 Folate 6.6 TSH 1.21 Free T4 0.85 Assessment and Plan (1) Medical clearance for psychiatric admission: Status: Acute Plan Pt is a 22-year-old transgender male (prefers be called Aslynn) with a PMH significant for?chronic back and knee pain, borderline personality disorder, and depression who is admitted to [facility] psychiatry unit for increasing depression with suicide attempt by intentional overdose on Tylenol. Pt was initially treated in the ED with acetylcysteine infusion, charcoal, and IVF. Was sent to ICU for close monitoring where they were clinically and hemodynamically stable. Transferred to the medical floor and cleared by poison control. Medical consult for admission H&P. Mood disorder Plan as per psychiatry Chronic musculoskeletal pain Motrin prn Pt otherwise has no known chronic medical conditions or acute medical complaints. Will sign off for now. Thank you for allowing us to participate in the care of this patient. Please reconsult if any acute issue arises.
[2023-06-08] MEDS: hydrOXYzine HCL 25 MG TABLET PO (18:01)
[2023-06-08] MEDS: OLANZapine 5 MG TABLET PO (18:01)
[2023-06-08 20:00] VITALS: BP 145/64; PULSE 69; RESP 15; TEMP 36.4; O2SAT 96
[2023-06-08] MEDS: Prazosin HCL 1 MG CAPSULE PO (21:37)
[2023-06-08] MEDS: Topiramate 25 MG TABLET 150 MG PO (21:37)
[2023-06-09] MEDS: DULoxetine HCl 60 MG CAPSULE.DR PO (09:23)
[2023-06-09] MEDS: HaloperidoL 5 MG TABLET PO (09:23)
[2023-06-09 09:59] VITALS: BP 127/72; PULSE 89; RESP 19; TEMP 36.6; O2SAT 98
[2023-06-09] MEDS: Lidocaine 4 % Patch ADH..PATCH 1 PATCH TRANSDERMA (12:50)
--- NOTE | 2023-06-09 17:17 | PC.NURSE ---
Pt asked to speak with TW this afternoon reporting they were starting to feel tired and overwhelmed. They felt that they should lay down and rest because I suffer from alot of medical issues. 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 Pt reports need to rest and states they spend most of their time in bed as they become too tired and overwhelmed. Denies having feelings of harming self at that time but recognized that they needed to rest so they would not become easily overwhelmed/overstimulated. Continues with 1:1 observer for safety.
[2023-06-09 20:00] VITALS: BP 164/70; PULSE 119; RESP 16; TEMP 36.6; O2SAT 97
[2023-06-09] MEDS: Prazosin HCL 1 MG CAPSULE PO (20:42)
[2023-06-09] MEDS: Topiramate 25 MG TABLET 150 MG PO (20:42)
--- NOTE | 2023-06-09 20:58 | HO.PSYCHPN ---
Subjective Subjective Date of Service: 06/09/23 Reason For Visit: Borderline personality disorder Interim History: Pleasant and cooperative this morning. Patient continues on 1:1 for safety due to self harming behaviors. Reports afternoons and evenings are hard which is when they self harm. Haldol has been helpful to control symptoms when the feelings of agitation and urges for self harm intensify. Review of Systems Review of Systems Chronic knee and back pain Pt otherwise has no acute medical complaints at this time Mental Status Exam Mental Status Exam Narrative: Appearance: wearing casual clothing, fair hygiene, in NAD Behavior: cooperative Psychomotor: no agitation or retardation noted Speech: clear, normal, rate/rhythm/volume, spontaneous TP: mostly linear TC: chronic depression, chronic urges to self harm Mood: anxious Affect: constricted SI: describes chronic intermittent thoughts HI: none VH/AH: none Delusions: none Insight/judgment: fair x 2. memory/cog: alert, oriented x 3. grossly intact to conversational testing. Diagnostics Vital Signs (24Hr): Vital Signs - 24 hr 06/09/23 09:59 Temperature 97.9 F Pulse Rate 89 Respiratory Rate 19 Blood Pressure 127/72 Pulse Oximetry 98 Oxygen Delivery Method Room Air BMI result Body Mass Index 51.9 Labs Labs: Laboratory Results - last 48 hr 06/08/23 08:55 Magnesium 1.9 Triglycerides 199 H Cholesterol 200 H LDL Cholesterol, Calc 113 H HDL Cholesterol 48 Vitamin B12 650 Folate 6.6 TSH 1.21 Free T4 0.85 Medications Medications Current Medications Al Hydroxide/Mg Hydroxide (Magnesium Hydrox/Alum Hydrox 30 Ml Oral.Susp) 30 ml PO Q6H PRN PRN Reason: Heartburn/Nausea Duloxetine HCl (Duloxetine Hcl 60 Mg Capsule.) 60 mg PO DAILY [facility] Last Admin: 06/09/23 09:23 Dose: 60 mg Haloperidol (Haloperidol 5 Mg Tablet) 5 mg PO BID PRN PRN Reason: Anxiety Last Admin: 06/08/23 18:01 Dose: 5 mg Haloperidol (Haloperidol 5 Mg Tablet) 5 mg PO DAILY [facility] Last Admin: 06/09/23 09:23 Dose: 5 mg Hydroxyzine HCl (Hydroxyzine Hcl 25 Mg Tablet) 25 mg PO Q6H PRN PRN Reason: Anxiety Last Admin: 06/08/23 18:01 Dose: 25 mg Lidocaine (Lidocaine 4 % Patch Adh..Patch) 1 patch TRANSDERMA DAILY [facility] Last Admin: 06/09/23 12:50 Dose: 1 patch Magnesium Hydroxide (Milk Of Magnesia 30 Ml Oral.Susp) 30 ml PO DAILY PRN PRN Reason: Constipation Non-Formulary Medication (Desmopressin) 0.2 mg PO BEDTIME BETZY Non-Formulary Medication (Methylphenidate Hcl) 27 mg PO DAILY [facility] Olanzapine (Olanzapine 5 Mg Tablet) 5 mg PO Q4H PRN PRN Reason: agitation Last Admin: 06/08/23 18:01 Dose: 5 mg Prazosin HCl (Prazosin Hcl 1 Mg Capsule) 1 mg PO BEDTIME BETZY; Protocol Last Admin: 06/09/23 20:42 Dose: 1 mg Topiramate (Topiramate 25 Mg Tablet) 150 mg PO BEDTIME BETZY Last Admin: 06/09/23 20:42 Dose: 150 mg Trazodone HCl (Trazodone Hcl 50 Mg Tablet) 50 mg PO BEDTIME MRX1 PRN PRN Reason: Insomnia Last Admin: 06/07/23 22:08 Dose: 50 mg Allergies Allergies Allergy/AdvReac Type Severity Reaction Status Date / Time chlorpromazine Allergy Rash Verified 06/07/23 20:58 [From Thorazine] oxcarbazepine Allergy Unknown Verified 06/07/23 20:58 [From Trileptal] ziprasidone [From Geodon] Allergy Unknown Verified 06/07/23 20:58 Assessment & Plan Assessment & Plan (1) Medical clearance for psychiatric admission: Status: Acute Code(s): Z00.8 - Encounter for other general examination (2) PTSD (post-traumatic stress disorder): Status: Acute Code(s): F43.10 - Post-traumatic stress disorder, unspecified (3) Borderline personality disorder: Status: Acute Code(s): F60.3 - Borderline personality disorder Plan Pt is a 22 year-old non binary who was brought to [facility] after they reported Od with 100 tablets of tylenol. Pt reports chronic intermittent urges to self harm sometimes to end their life, other to decrease emotional pain. Pt reports they were indifferent as to consequences of OD but states initially was more with intent to decrease emotional pain. We discussed risks, benefits and alternative treatment. At this moment, we reviewed their current medication regimen, agreed to continue it, unless decided with their OP provider to make changes. PLAN 1. admit to [facility], 1:1 due to safety- will assess daily. 2. continue current medications 3. obtain collateral information 4. aftercare planning. 06/08: continue current management and treatment plan. Reason for continued inpatient stay Substantial Risk for: harm to self and rapid decompensation Time Spent With Patient Time: Total time managing care of this patient today ____ minutes.
[2023-06-09] MEDS: Ibuprofen 400 MG TABLET PO (21:55)
[2023-06-10 08:00] VITALS: BP 128/73; PULSE 90; RESP 17; TEMP 36.4; O2SAT 96
[2023-06-10] MEDS: HaloperidoL 5 MG TABLET PO (08:12)
[2023-06-10] MEDS: DULoxetine HCl 60 MG CAPSULE.DR PO (08:12)
[2023-06-10] MEDS: Lidocaine 4 % Patch ADH..PATCH 1 PATCH TRANSDERMA (08:13)
[2023-06-10] MEDS: Ibuprofen 400 MG TABLET PO (08:17)
--- NOTE | 2023-06-10 09:20 | P.PNPSI_ITS ---
Subjective Subjective Date of Service: 06/10/23 Reason For Visit: Borderline personality disorder Interim History: Pleasant and cooperative this morning. Patient continues on 1:1 for safety due to self harming behaviors. Reports a history of numbness in legs which they had work up for during an ED visit and was told may have POTS. Denied SI when asked directly. In the afternoon this service writer was paged by the nurse that Aslynn banged their head. They took PRN medications and calmed down without need for restraints. Review of Systems Review of Systems Chronic knee and back pain Pt otherwise has no acute medical complaints at this time Mental Status Exam Mental Status Exam Narrative: Appearance: wearing casual clothing, fair hygiene, in NAD Behavior: cooperative Psychomotor: no agitation or retardation noted Speech: clear, normal, rate/rhythm/volume, spontaneous TP: mostly linear TC: chronic depression, chronic urges to self harm Mood: anxious Affect: constricted SI: describes chronic intermittent thoughts HI: none VH/AH: none Delusions: none Insight/judgment: fair x 2. memory/cog: alert, oriented x 3. grossly intact to conversational testing. Diagnostics Vital Signs (24Hr): Vital Signs - 24 hr 06/09/23 09:59 06/09/23 20:00 06/10/23 08:00 Temperature 97.9 F 97.8 F 97.5 F Pulse Rate 89 119 H 90 Respiratory Rate 19 16 17 Blood Pressure 127/72 164/70 H 128/73 Pulse Oximetry 98 97 96 Oxygen Delivery Method Room Air Room Air Room Air BMI result Body Mass Index 51.9 Labs Labs: Laboratory Results - last 48 hr 06/08/23 08:55 Magnesium 1.9 Triglycerides 199 H Cholesterol 200 H LDL Cholesterol, Calc 113 H HDL Cholesterol 48 Vitamin B12 650 Folate 6.6 TSH 1.21 Free T4 0.85 Medications Medications Current Medications Al Hydroxide/Mg Hydroxide (Magnesium Hydrox/Alum Hydrox 30 Ml Oral.Susp) 30 ml PO Q6H PRN PRN Reason: Heartburn/Nausea Duloxetine HCl (Duloxetine Hcl 60 Mg Capsule.) 60 mg PO DAILY [facility] Last Admin: 06/10/23 08:12 Dose: 60 mg Haloperidol (Haloperidol 5 Mg Tablet) 5 mg PO BID PRN PRN Reason: Anxiety Last Admin: 06/08/23 18:01 Dose: 5 mg Haloperidol (Haloperidol 5 Mg Tablet) 5 mg PO DAILY [facility]ZY Last Admin: 06/10/23 08:12 Dose: 5 mg Hydroxyzine HCl (Hydroxyzine Hcl 25 Mg Tablet) 25 mg PO Q6H PRN PRN Reason: Anxiety Last Admin: 06/08/23 18:01 Dose: 25 mg Ibuprofen (Ibuprofen 400 Mg Tablet) 400 mg PO Q6H PRN PRN Reason: Pain, Moderate(Pain Scale 4-6) Last Admin: 06/10/23 08:17 Dose: 400 mg Lidocaine (Lidocaine 4 % Patch Adh..Patch) 1 patch TRANSDERMA DAILY [facility] Last Admin: 06/10/23 08:13 Dose: 1 patch Magnesium Hydroxide (Milk Of Magnesia 30 Ml Oral.Susp) 30 ml PO DAILY PRN PRN Reason: Constipation Non-Formulary Medication (Desmopressin) 0.2 mg PO BEDTIME BETZY Non-Formulary Medication (Methylphenidate Hcl) 27 mg PO DAILY [facility] Olanzapine (Olanzapine 5 Mg Tablet) 5 mg PO Q4H PRN PRN Reason: agitation Last Admin: 06/08/23 18:01 Dose: 5 mg Prazosin HCl (Prazosin Hcl 1 Mg Capsule) 1 mg PO BEDTIME BETZY; Protocol Last Admin: 06/09/23 20:42 Dose: 1 mg Topiramate (Topiramate 25 Mg Tablet) 150 mg PO BEDTIME [facility]ZY Last Admin: 06/09/23 20:42 Dose: 150 mg Trazodone HCl (Trazodone Hcl 50 Mg Tablet) 50 mg PO BEDTIME MRX1 PRN PRN Reason: Insomnia Last Admin: 06/07/23 22:08 Dose: 50 mg Allergies Allergies Allergy/AdvReac Type Severity Reaction Status Date / Time chlorpromazine Allergy Rash Verified 06/07/23 20:58 [From Thorazine] oxcarbazepine Allergy Unknown Verified 06/07/23 20:58 [From Trileptal] ziprasidone [From Geodon] Allergy Unknown Verified 06/07/23 20:58 Assessment & Plan Assessment & Plan (1) Medical clearance for psychiatric admission: Status: Acute Code(s): Z00.8 - Encounter for other general examination (2) PTSD (post-traumatic stress disorder): Status: Acute Code(s): F43.10 - Post-traumatic stress disorder, unspecified (3) Borderline personality disorder: Status: Acute Code(s): F60.3 - Borderline personality disorder Plan Pt is a 22 year-old non binary who was brought to [facility] after they reported Od with 100 tablets of tylenol. Pt reports chronic intermittent urges to self harm sometimes to end their life, other to decrease emotional pain. Pt reports they were indifferent as to consequences of OD but states initially was more with intent to decrease emotional pain. We discussed risks, benefits and alternative treatment. At this moment, we reviewed their current medication regimen, agreed to continue it, unless decided with their OP provider to make changes. PLAN 1. admit to M5, 1:1 due to safety- will assess daily. 2. continue current medications 3. obtain collateral information 4. aftercare planning. 06/08: continue current management and treatment plan. 06/09: continue current management and treatment plan. Reason for continued inpatient stay Substantial Risk for: harm to self, inability to function and rapid decompensation Time Spent With Patient Time: Total time managing care of this patient today ____ minutes.
[2023-06-10] MEDS: hydrOXYzine HCL 25 MG TABLET PO ×2 (13:12→22:13)
[2023-06-10] MEDS: OLANZapine 5 MG TABLET PO (13:12)
[2023-06-10 20:00] VITALS: BP 120/56; PULSE 90; RESP 18; TEMP 36.4; O2SAT 96
[2023-06-10 22:13] VITALS: BP 120/56
[2023-06-10] MEDS: traZODone HCL 50 MG TABLET PO (22:13)
[2023-06-10] MEDS: Topiramate 25 MG TABLET 150 MG PO (22:13)
[2023-06-10] MEDS: Prazosin HCL 1 MG CAPSULE PO (22:13)
[2023-06-11 07:45] VITALS: BP 122/85; PULSE 79; RESP 15; TEMP 36.6; O2SAT 97
[2023-06-11] MEDS: HaloperidoL 5 MG TABLET PO (08:13)
[2023-06-11] MEDS: DULoxetine HCl 60 MG CAPSULE.DR PO (08:13)
[2023-06-11] MEDS: Lidocaine 4 % Patch ADH..PATCH 1 PATCH TRANSDERMA (08:13)
--- NOTE | 2023-06-11 09:36 | P.PNPSI_ITS ---
Subjective Subjective Date of Service: 06/11/23 Reason For Visit: Borderline personality disorder Interim History: Met with patient; discussed with team Patient reported actually feeling better which surprised patient. Patient said that they very recently had a profound realization, and said deep down I think I enjoy being medically taking care of... Patient said they realize this for the 1st time and thinks this has a lot to do with why self-harm occurs. Patient clarified and said the need is not to be specifically medically taking care of but just to be taking care of in general. Patient said it was very vulnerable to share this with pattern chart writer and has not talked about it before; also however patient said there is some relief in acknowledging it, now having more understanding for things. Patient also shared that spring and summer months are typically harder for them though they do not know why. Also discussed being on a one-to-one and patient said it would be a goal to get off one-to-one during this admission. Mental Status Exam Mental Status Exam Narrative: Pt is alert and oriented; behavior is cooperative, friendly and calm; patient is not in distress; dressed in casual attire, unkempt hair but adequate hygiene; mood is described as depressed and affect anxious; eye contact appropriate; Speech is normal rate, volume and prosody and not pressured; psychomotor retardation present; thought process is organized and goal directed; Thought content is on understanding themselves; otherwise pertinent to relevant topics and without any delusional content, paranoid ideations or grandiosity; intermittent SI; intermittent SI be; no HI; There is no evidence of perceptual disturbance and denies AVH. Patients insight and judgment impaired but improving. Diagnostics Vital Signs (24Hr): Vital Signs - 24 hr 06/10/23 20:00 06/10/23 22:13 Temperature 97.6 F Pulse Rate 90 Respiratory Rate 18 Blood Pressure 120/56 L 120/56 L Pulse Oximetry 96 Oxygen Delivery Method Room Air BMI result Body Mass Index 51.9 Medications Medications Current Medications Al Hydroxide/Mg Hydroxide (Magnesium Hydrox/Alum Hydrox 30 Ml Oral.Susp) 30 ml PO Q6H PRN PRN Reason: Heartburn/Nausea Duloxetine HCl (Duloxetine Hcl 60 Mg Capsule.Dr) 60 mg PO DAILY BETZY Last Admin: 06/11/23 08:13 Dose: 60 mg Haloperidol (Haloperidol 5 Mg Tablet) 5 mg PO BID PRN PRN Reason: Anxiety Last Admin: 06/08/23 18:01 Dose: 5 mg Haloperidol (Haloperidol 5 Mg Tablet) 5 mg PO DAILY BETZY Last Admin: 06/11/23 08:13 Dose: 5 mg Hydroxyzine HCl (Hydroxyzine Hcl 25 Mg Tablet) 25 mg PO Q6H PRN PRN Reason: Anxiety Last Admin: 06/10/23 22:13 Dose: 25 mg Ibuprofen (Ibuprofen 400 Mg Tablet) 400 mg PO Q6H PRN PRN Reason: Pain, Moderate(Pain Scale 4-6) Last Admin: 06/10/23 08:17 Dose: 400 mg Lidocaine (Lidocaine 4 % Patch Adh..Patch) 1 patch TRANSDERMA DAILY BETZY Last Admin: 06/11/23 08:13 Dose: 1 patch Magnesium Hydroxide (Milk Of Magnesia 30 Ml Oral.Susp) 30 ml PO DAILY PRN PRN Reason: Constipation Olanzapine (Olanzapine 5 Mg Tablet) 5 mg PO Q4H PRN PRN Reason: agitation Last Admin: 06/10/23 13:12 Dose: 5 mg Prazosin HCl (Prazosin Hcl 1 Mg Capsule) 1 mg PO BEDTIME BETZY; Protocol Last Admin: 06/10/23 22:13 Dose: 1 mg Topiramate (Topiramate 25 Mg Tablet) 150 mg PO BEDTIME BETZY Last Admin: 06/10/23 22:13 Dose: 150 mg Trazodone HCl (Trazodone Hcl 50 Mg Tablet) 50 mg PO BEDTIME MRX1 PRN PRN Reason: Insomnia Last Admin: 06/10/23 22:13 Dose: 50 mg Allergies Allergies Allergy/AdvReac Type Severity Reaction Status Date / Time chlorpromazine Allergy Rash Verified 06/07/23 20:58 [From Thorazine] oxcarbazepine Allergy Unknown Verified 06/07/23 20:58 [From Trileptal] ziprasidone [From Geodon] Allergy Unknown Verified 06/07/23 20:58 Assessment & Plan Assessment & Plan (1) PTSD (post-traumatic stress disorder): Status: Acute Code(s): F43.10 - Post-traumatic stress disorder, unspecified (2) Medical clearance for psychiatric admission: Status: Acute Code(s): Z00.8 - Encounter for other general examination (3) Borderline personality disorder: Status: Acute Code(s): F60.3 - Borderline personality disorder Plan Bill is a 22 year-old non binary, prefers nouns they/them who was brought to [facility] after they called 911 reporting they had OD on 100 tablets of tylenol. Pt had disclose superficial cuts to both forearms but not the fact that they had OD on tylenol. Pt has hx of several self harms behaviors and recently was changed from supported housing to snf through [facility] due to increase self harm behaviors. On the unit, pt reports chronic, intermittent thoughts to self harm which they state often are related to need to decrease emotional distress then wanting to end their life. They also report at times feeling exausted and overwhelmed about feeling too much. Pt reports current suicidal ideation but denies any plan or intent to harm themselves. Pt reports it has been difficult to adjust to new [facility] but states they know why her team were concern about them living in supported housing versus being in snf. No hx of VH/AH. No delusional content noted or reported. Past Psychiatric History: Inpt: several prior admission. OP: Dr. Janet Moss. Therapist from [facility]. ACCS team Hx of self-harm: reports cutting since they were 9 y/o. 06/01/23- OD on benadryl/antihtn meds, requiring medical admission, 04/2023 cut wrist requiring steri-strips 12/27/22: OD tylenol ICU admission Pt is a 22 year-old non binary who was brought to [facility] after they reported Od with 100 tablets of tylenol. Pt reports chronic intermittent urges to self harm sometimes to end their life, other to decrease emotional pain. Pt reports they were indifferent as to consequences of OD but states initially was more with intent to decrease emotional pain. We discussed risks, benefits and alternative treatment. At this moment, we reviewed their current medication regimen, agreed to continue it, unless decided with their OP provider to make changes. Hospital course: 06/08 Pleasant and cooperative this morning. Patient continues on 1:1 for safety due to self harming behaviors. Reports afternoons and evenings are hard which is when they self harm. Haldol has been helpful to control symptoms when the feelings of agitation and urges for self harm intensify. 06/09 Pleasant and cooperative this morning. Patient continues on 1:1 for safety due to self harming behaviors. Reports a history of numbness in legs which they had work up for during an ED visit and was told may have POTS. Denied SI when asked directly. In the afternoon this pattern chart writer was paged by the nurse that Aslynn banged their head. They took PRN medications and calmed down without need for restraints. 06/10 Patient reported actually feeling better which surprised patient. Patient said that they very recently had a profound realization, and said deep down I think I enjoy being medically taking care of... Patient said they realize this for the 1st time and thinks this has a lot to do with why self-harm occurs. Patient clarified and said the need is not to be specifically medically taking care of but just to be taking care of in general. Patient said it was very vulnerable to share this with pattern chart writer and has not talked about it before; also however patient said there is some relief in acknowledging it, now having more understanding for things. Patient also shared that spring and summer months are typically harder for them though they do not know why. Also discussed being on a one-to-one and patient said it would be a goal to get off one-to-one during this admission. Patient agreed to talk about improving coping skills and verbalizing this need however conversation had been exhausted patient politely asked to take a break. PLAN 1. admit to M5, 1:1 due to safety- will assess daily. 2. continue current medications 3. obtain collateral information 4. aftercare planning. Patient educated on: diagnosis, medication risk/benefits and therapeutic strategies Informed Consent: understands Reason for continued inpatient stay Substantial Risk for: rapid decompensation Time Spent With Patient Time: Total time managing care of this patient today ____ minutes.
[2023-06-11] MEDS: OLANZapine 5 MG TABLET PO ×2 (11:47→20:28)
[2023-06-11] MEDS: DULoxetine HCl 20 MG CAPSULE.DR PO (18:33)
[2023-06-11 20:00] VITALS: BP 108/93; PULSE 110; RESP 18; TEMP 36.8; O2SAT 98
[2023-06-11] MEDS: Prazosin HCL 1 MG CAPSULE PO (20:28)
[2023-06-11] MEDS: Topiramate 25 MG TABLET 150 MG PO (20:29)
[2023-06-11] MEDS: traZODone HCL 50 MG TABLET PO (20:29)
[2023-06-12 07:30] VITALS: BP 144/80; PULSE 96; RESP 16; TEMP 36.4; O2SAT 96
[2023-06-12] MEDS: Lidocaine 4 % Patch ADH..PATCH 1 PATCH TRANSDERMA (08:30)
[2023-06-12] MEDS: HaloperidoL 5 MG TABLET PO ×2 (08:30→15:47)
[2023-06-12] MEDS: Ibuprofen 400 MG TABLET PO ×2 (08:44→20:33)
--- NOTE | 2023-06-12 11:30 | HO.PSYCHPN ---
Subjective Subjective Date of Service: 06/12/23 Reason For Visit: Borderline personality disorder Subjective Notes: Conditional Voluntary Interim History: Reviewed with Dr. Ramsay. Pt continues on 1:1 safety checks. Pt reports feeling okay today; pt denies suicidal ideation or thoughts of self harm at this time. pt stated, I usually feel suicidal later in the evening, I'm not sure why. I try to keep myself busy but there is nothing to do here. I usually listen to music and watch tv . Pt denies HI/VH/AH. Medication Compliance: Yes Side effects from medications: No Review of Systems Review of Systems Chronic knee and back pain Pt otherwise has no acute medical complaints at this time Mental Status Exam Mental Status Exam Narrative: Pt is alert and oriented; behavior is cooperative and calm; dressed in casual attire; mood is described as okay ; eye contact appropriate; Speech is normal rate, volume and prosody and not pressured; thought process is organized; Thought content is on tx; denies any SI/HI/VH/AH Diagnostics Vital Signs (24Hr): Vital Signs - 24 hr 06/11/23 20:00 Temperature 98.2 F Pulse Rate 110 H Respiratory Rate 18 Blood Pressure 108/93 H Pulse Oximetry 98 Oxygen Delivery Method Room Air BMI result Body Mass Index 51.9 Medications Medications Current Medications Al Hydroxide/Mg Hydroxide (Magnesium Hydrox/Alum Hydrox 30 Ml Oral.Susp) 30 ml PO Q6H PRN PRN Reason: Heartburn/Nausea Duloxetine HCl (Duloxetine Hcl 20 Mg Capsule.Dr) 80 mg PO DAILY [facility] Haloperidol (Haloperidol 5 Mg Tablet) 5 mg PO BID PRN PRN Reason: Anxiety Last Admin: 06/08/23 18:01 Dose: 5 mg Haloperidol (Haloperidol 5 Mg Tablet) 5 mg PO DAILY [facility] Last Admin: 06/12/23 08:30 Dose: 5 mg Hydroxyzine HCl (Hydroxyzine Hcl 25 Mg Tablet) 25 mg PO Q6H PRN PRN Reason: Anxiety Last Admin: 06/10/23 22:13 Dose: 25 mg Ibuprofen (Ibuprofen 400 Mg Tablet) 400 mg PO Q6H PRN PRN Reason: Pain, Moderate(Pain Scale 4-6) Last Admin: 06/12/23 08:44 Dose: 400 mg Lidocaine (Lidocaine 4 % Patch Adh..Patch) 1 patch TRANSDERMA DAILY [facility] Last Admin: 06/12/23 08:30 Dose: 1 patch Magnesium Hydroxide (Milk Of Magnesia 30 Ml Oral.Susp) 30 ml PO DAILY PRN PRN Reason: Constipation Olanzapine (Olanzapine 5 Mg Tablet) 5 mg PO Q4H PRN PRN Reason: agitation Last Admin: 06/11/23 20:28 Dose: 5 mg Prazosin HCl (Prazosin Hcl 1 Mg Capsule) 1 mg PO BEDTIME BETZY; Protocol Last Admin: 06/11/23 20:28 Dose: 1 mg Topiramate (Topiramate 25 Mg Tablet) 150 mg PO BEDTIME BETZY Last Admin: 06/11/23 20:29 Dose: 150 mg Trazodone HCl (Trazodone Hcl 50 Mg Tablet) 50 mg PO BEDTIME MRX1 PRN PRN Reason: Insomnia Last Admin: 06/11/23 20: Dose: 50 mg Allergies Allergies Allergy/AdvReac Type Severity Reaction Status Date / Time chlorpromazine Allergy Rash Verified 06/07/23 20:58 [From Thorazine] oxcarbazepine Allergy Unknown Verified 06/07/23 20:58 [From Trileptal] ziprasidone [From Geodon] Allergy Unknown Verified 06/07/23 20:58 Assessment & Plan Assessment & Plan (1) PTSD (post-traumatic stress disorder): Status: Acute Code(s): F43.10 - Post-traumatic stress disorder, unspecified (2) Medical clearance for psychiatric admission: Status: Acute Code(s): Z00.8 - Encounter for other general examination (3) Borderline personality disorder: Status: Acute Code(s): F60.3 - Borderline personality disorder Plan Bill is a 22 year-old non binary, prefers nouns they/them who was brought to [facility] after they called 911 reporting they had OD on 100 tablets of tylenol. Pt had disclose superficial cuts to both forearms but not the fact that they had OD on tylenol. Pt has hx of several self harms behaviors and recently was changed from supported housing to care home through [facility] due to increase self harm behaviors. On the unit, pt reports chronic, intermittent thoughts to self harm which they state often are related to need to decrease emotional distress then wanting to end their life. They also report at times feeling exausted and overwhelmed about feeling too much. Pt reports current suicidal ideation but denies any plan or intent to harm themselves. Pt reports it has been difficult to adjust to new [facility] but states they know why her team were concern about them living in supported housing versus being in care home. No hx of VH/AH. No delusional content noted or reported. Past Psychiatric History: Inpt: several prior admission. OP: Dr. Janet Moss. Therapist from [facility]. ACCS team Hx of self-harm: reports cutting since they were 9 y/o. 06/01/23- OD on benadryl/antihtn meds, requiring medical admission, 04/2023 cut wrist requiring steri-strips 12/27/22: OD tylenol ICU admission Pt is a 22 year-old non binary who was brought to [facility] after they reported Od with 100 tablets of tylenol. Pt reports chronic intermittent urges to self harm sometimes to end their life, other to decrease emotional pain. Pt reports they were indifferent as to consequences of OD but states initially was more with intent to decrease emotional pain. We discussed risks, benefits and alternative treatment. At this moment, we reviewed their current medication regimen, agreed to continue it, unless decided with their OP provider to make changes. Hospital course: 06/08 Pleasant and cooperative this morning. Patient continues on 1:1 for safety due to self harming behaviors. Reports afternoons and evenings are hard which is when they self harm. Haldol has been helpful to control symptoms when the feelings of agitation and urges for self harm intensify. 06/09 Pleasant and cooperative this morning. Patient continues on 1:1 for safety due to self harming behaviors. Reports a history of numbness in legs which they had work up for during an ED visit and was told may have POTS. Denied SI when asked directly. In the afternoon this comic writer was paged by the nurse that Aslynn banged their head. They took PRN medications and calmed down without need for restraints. 06/11: continue current tx plan. PLAN 1. admit to , 1:1 due to safety- will assess daily. 2. continue current medications 3. obtain collateral information 4. aftercare planning. Patient educated on: medication risk/benefits and therapeutic strategies Informed Consent: understands Reason for continued inpatient stay Substantial Risk for: med/psych decompensation Time Spent With Patient Time: Total time managing care of this patient today __20__ minutes.
[2023-06-12] MEDS: DULoxetine HCl 20 MG CAPSULE.DR 80 MG PO (13:02)
[2023-06-12 20:00] VITALS: BP 124/63; PULSE 109; RESP 18; TEMP 36.6; O2SAT 96
[2023-06-12] MEDS: Topiramate 25 MG TABLET 150 MG PO (20:33)
[2023-06-12] MEDS: Prazosin HCL 1 MG CAPSULE PO (20:34)
[2023-06-12] MEDS: OLANZapine 5 MG TABLET PO (20:34)
[2023-06-12] MEDS: traZODone HCL 50 MG TABLET PO (20:34)
[2023-06-13 08:04] VITALS: BP 114/67; PULSE 103; RESP 18; TEMP 36.4; O2SAT 97
[2023-06-13] MEDS: HaloperidoL 5 MG TABLET PO (08:08)
[2023-06-13] MEDS: Lidocaine 4 % Patch ADH..PATCH 1 PATCH TRANSDERMA (08:08)
[2023-06-13] MEDS: DULoxetine HCl 20 MG CAPSULE.DR 80 MG PO (08:08)
--- NOTE | 2023-06-13 11:26 | P.PNPSI_ITS ---
Subjective Subjective Date of Service: 06/13/23 Reason For Visit: Borderline personality disorder Subjective Notes: Conditional Voluntary Interim History: Reviewed with Dr. Ramsay. Pt reports feeling good today; pt stated, I want to go back home. When I stay in the hospital too long I start to feel worse. I feel like I'm in a good spot mentally and just needed a reset, which I was able to get here. I'm going to check in with the staff at the correction more often and give them my wallet so I don't impulsively buy anything . Pt reports they plan on following up with their outpatient providers. pt denies SI/HI/VH/AH. Medication Compliance: Yes Side effects from medications: No Attending Groups: Yes Review of Systems Review of Systems Chronic knee and back pain Pt otherwise has no acute medical complaints at this time Mental Status Exam Mental Status Exam Narrative: Pt is alert and oriented; behavior is cooperative and calm; dressed in casual attire; mood is described as good ; eye contact appropriate; Speech is normal rate, volume and prosody and not pressured; thought process is organized; Thought content is on tx and discharge; denies any SI/HI/VH/AH Diagnostics Vital Signs (24Hr): Vital Signs - 24 hr 06/12/23 20:00 06/13/23 08:04 Temperature 97.8 F 97.5 F Pulse Rate 109 H 103 H Respiratory Rate 18 18 Blood Pressure 124/63 114/67 Pulse Oximetry 96 97 Oxygen Delivery Method Room Air Room Air BMI result Body Mass Index 51.9 Medications Medications Current Medications Al Hydroxide/Mg Hydroxide (Magnesium Hydrox/Alum Hydrox 30 Ml Oral.Susp) 30 ml PO Q6H PRN PRN Reason: Heartburn/Nausea Duloxetine HCl (Duloxetine Hcl 20 Mg Capsule.Dr) 80 mg PO DAILY [facility] Last Admin: 06/13/23 08:08 Dose: 80 mg Haloperidol (Haloperidol 5 Mg Tablet) 5 mg PO BID PRN PRN Reason: Anxiety Last Admin: 06/12/23 15:47 Dose: 5 mg Haloperidol (Haloperidol 5 Mg Tablet) 5 mg PO DAILY [facility] Last Admin: 06/13/23 08:08 Dose: 5 mg Hydroxyzine HCl (Hydroxyzine Hcl 25 Mg Tablet) 25 mg PO Q6H PRN PRN Reason: Anxiety Last Admin: 06/10/23 22:13 Dose: 25 mg Ibuprofen (Ibuprofen 400 Mg Tablet) 400 mg PO Q6H PRN PRN Reason: Pain, Moderate(Pain Scale 4-6) Last Admin: 06/12/23 20:33 Dose: 400 mg Lidocaine (Lidocaine 4 % Patch Adh..Patch) 1 patch TRANSDERMA DAILY BETZY Last Admin: 06/13/23 08:08 Dose: 1 patch Magnesium Hydroxide (Milk Of Magnesia 30 Ml Oral.Susp) 30 ml PO DAILY PRN PRN Reason: Constipation Olanzapine (Olanzapine 5 Mg Tablet) 5 mg PO Q4H PRN PRN Reason: agitation Last Admin: 06/12/23 20:34 Dose: 5 mg Prazosin HCl (Prazosin Hcl 1 Mg Capsule) 1 mg PO BEDTIME BETZY; Protocol Last Admin: 06/12/23 20:34 Dose: 1 mg Topiramate (Topiramate 25 Mg Tablet) 150 mg PO BEDTIME BETZY Last Admin: 06/12/23 20:33 Dose: 150 mg Trazodone HCl (Trazodone Hcl 50 Mg Tablet) 50 mg PO BEDTIME MRX1 PRN PRN Reason: Insomnia Last Admin: 06/12/23 20:34 Dose: 50 mg Allergies Allergies Allergy/AdvReac Type Severity Reaction Status Date / Time chlorpromazine Allergy Rash Verified 06/07/23 20:58 [From Thorazine] oxcarbazepine Allergy Unknown Verified 06/07/23 20:58 [From Trileptal] ziprasidone [From Geodon] Allergy Unknown Verified 06/07/23 20:58 Assessment & Plan Assessment & Plan (1) PTSD (post-traumatic stress disorder): Status: Acute Code(s): F43.10 - Post-traumatic stress disorder, unspecified (2) Medical clearance for psychiatric admission: Status: Acute Code(s): Z00.8 - Encounter for other general examination (3) Borderline personality disorder: Status: Acute Code(s): F60.3 - Borderline personality disorder Plan Bill is a 22 year-old non binary, prefers nouns they/them who was brought to [facility] after they called 911 reporting they had OD on 100 tablets of tylenol. Pt had disclose superficial cuts to both forearms but not the fact that they had OD on tylenol. Pt has hx of several self harms behaviors and recently was changed from supported housing to correction through [facility] due to increase self harm behaviors. On the unit, pt reports chronic, intermittent thoughts to self harm which they state often are related to need to decrease emotional distress then wanting to end their life. They also report at times feeling exausted and overwhelmed about feeling too much. Pt reports current suicidal ideation but denies any plan or intent to harm themselves. Pt reports it has been difficult to adjust to new [facility] but states they know why her team were concern about them living in supported ho using versus being in correction. No hx of VH/AH. No delusional content noted or reported. Past Psychiatric History: Inpt: several prior admission. OP: Dr. Janet Moss. [facility]. ACCS team Hx of self-harm: reports cutting since they were 9 y/o. 06/01/23- OD on benadryl/antihtn meds, requiring medical admission, 04/2023 cut wrist requiring steri-strips 12/27/22: OD tylenol ICU admission Pt is a 22 year-old non binary who was brought to [facility] after they reported Od with 100 tablets of tylenol. Pt reports chronic intermittent urges to self harm sometimes to end their life, other to decrease emotional pain. Pt reports they were indifferent as to consequences of OD but states initially was more with intent to decrease emotional pain. We discussed risks, benefits and alternative treatment. At this moment, we reviewed their current medication regimen, agreed to continue it, unless decided with their OP provider to make changes. Hospital course: 06/08 Pleasant and cooperative this morning. Patient continues on 1:1 for safety due to self harming behaviors. Reports afternoons and evenings are hard which is when they self harm. Haldol has been helpful to control symptoms when the feelings of agitation and urges for self harm intensify. 06/09 Pleasant and cooperative this morning. Patient continues on 1:1 for safety due to self harming behaviors. Reports a history of numbness in legs which they had work up for during an ED visit and was told may have POTS. Denied SI when asked directly. In the afternoon this rewriter was paged by the nurse that Aslynn banged their head. They took PRN medications and calmed down without need for restraints. 06/11: continue current tx plan. 06/12: plan to discharge back to correction tomorrow. PLAN 1. admit to M5, 1:1 due to safety- will assess daily. 2. continue current medications 3. obtain collateral information 4. aftercare planning. Patient educated on: diagnosis, medication risk/benefits and therapeutic strategies Informed Consent: understands Reason for continued inpatient stay Substantial Risk for: stable for discharge Time Spent With Patient Time: Total time managing care of this patient today _20___ minutes.
[2023-06-13 20:00] VITALS: BP 127/76; PULSE 98; RESP 18; TEMP 36.9; O2SAT 95
[2023-06-13] MEDS: traZODone HCL 50 MG TABLET PO (20:12)
[2023-06-13] MEDS: Prazosin HCL 1 MG CAPSULE PO (20:12)
[2023-06-13] MEDS: Topiramate 25 MG TABLET 150 MG PO (20:12)
[2023-06-14 08:00] VITALS: BP 119/61; PULSE 96; RESP 16; TEMP 36.7; O2SAT 95
[2023-06-14] MEDS: HaloperidoL 5 MG TABLET PO (08:11)
[2023-06-14] MEDS: Lidocaine 4 % Patch ADH..PATCH 1 PATCH TRANSDERMA (08:11)
[2023-06-14] MEDS: DULoxetine HCl 20 MG CAPSULE.DR 80 MG PO (08:11)
--- NOTE | 2023-06-14 09:18 | PM.PSYDC ---
DS: Providers Provider Date of Service: 06/14/23 Date of admission: 06/07/23 19:03 Date of discharge: 06/14/23 Primary care physician: BECKY Gtz Admitting clinician: Elvie Flanagan Attending physician on admission: Vik Ramsay Consults: 06/07/23 22:53 Consult to Hospitalist Routine Comment: Consulting Provider: Hospitalist Reason For Exam: external admission Attending physician on discharge: Vik Ramsay Discharging clinician: Shira Angelo DS: Diagnosis Discharge Diagnosis (1) PTSD (post-traumatic stress disorder): Status: Acute (2) Medical clearance for psychiatric admission: Status: Acute (3) Borderline personality disorder: Status: Acute DS: Medications Discharge Medications Home Medications: Home Medications ?Medication ?Instructions ?Recorded ?Confirmed acetaminophen 325 mg tablet 650 mg PO Q6H PRN Pain 06/07/23 06/07/23 desmopressin 0.1 mg tablet 0.2 mg PO BEDTIME 06/07/23 06/07/23 duloxetine 20 mg capsule,delayed 20 mg PO DAILY 06/07/23 06/07/23 release duloxetine 60 mg capsule,delayed 60 mg PO DAILY 06/07/23 06/07/23 release haloperidol 5 mg tablet 5 mg PO BID PRN Anxiety 06/07/23 06/07/23 haloperidol 5 mg tablet 5 mg PO DAILY 06/07/23 06/07/23 ibuprofen 400 mg tablet 400 mg PO TID PRN Pain 06/07/23 06/07/23 lidocaine 5 % topical patch 1 patch topical DAILY 06/07/23 06/07/23 methylphenidate HCl 27 mg 27 mg PO DAILY 06/07/23 06/07/23 tablet,extended release 24 hr prazosin 1 mg capsule 1 mg PO BEDTIME 06/07/23 06/07/23 topiramate 50 mg tablet 150 mg PO BEDTIME 06/07/23 06/07/23 trazodone 50 mg tablet 50 mg PO BEDTIME PRN Sleep 06/07/23 06/07/23 Mental Status Exam Mental Status Exam Narrative: Pt is alert and oriented; behavior is cooperative and calm; dressed in casual attire; mood is described as good ; eye contact appropriate; Speech is normal rate, volume and prosody and not pressured; thought process is organized; Thought content is on tx and discharge; denies any SI/HI/VH/AH Data Data Completed and Pending Completed studies during hospitalization [Text1]: 06/08/23 08:55 Magnesium 1.9 Triglycerides 199 H Cholesterol 200 H LDL Cholesterol, Calc 113 H HDL Cholesterol 48 Vitamin B12 650 Folate 6.6 TSH 1.21 Free T4 0.85 DS: Summary Hospital Course Hospital Course: (Idris) Bill is a 22 year-old non binary, prefers nouns they/them who was brought to [facility] after they called 911 reporting they had OD on 100 tablets of Tylenol. Pt had disclose superficial cuts to both forearms but not the fact that they had OD on tylenol. Pt has hx of several self harms behaviors and recently was changed from supported housing to long-term through [facility] due to increase self harm behaviors. On the unit, pt reports chronic, intermittent thoughts to self harm which they state often are related to need to decrease emotional distress then wanting to end their life. They also report at times feeling exhausted and overwhelmed about feeling too much. Pt reports current suicidal ideation but denies any plan or intent to harm themselves. Pt reports it has been difficult to adjust to new GH but states they know why her team were concern about them living in supported housing versus being in long-term. No hx of VH/AH. No delusional content noted or reported. During hospital course, Pt is a 22 year-old non binary who was brought to [facility] after they reported Od with 100 tablets of tylenol. Pt reports chronic intermittent urges to self harm sometimes to end their life, other to decrease emotional pain. Pt reports they were indifferent as to consequences of OD but states initially was more with intent to decrease emotional pain. We discussed risks, benefits and alternative treatment. At this moment, we reviewed their current medication regimen, agreed to continue it, unless decided with their OP provider to make changes. PLAN 1. admit to [facility], 1:1 due to safety- will assess daily. 2. continue current medications 3. obtain collateral information 4. aftercare planning. Pleasant and cooperative this morning. Patient continues on 1:1 for safety due to self harming behaviors. Reports afternoons and evenings are hard which is when they self harm. Haldol has been helpful to control symptoms when the feelings of agitation and urges for self harm intensify. Pleasant and cooperative this morning. Patient continues on 1:1 for safety due to self harming behaviors. Reports a history of numbness in legs which they had work up for during an ED visit and was told may have POTS. Denied SI when asked directly. In the afternoon this sign writer hand was paged by the nurse that Aslynn banged their head. They took PRN medications and calmed down without need for restraints. Pt reports feeling good today; pt stated, I want to go back home. When I stay in the hospital too long I start to feel worse. I feel like I'm in a good spot mentally and just needed a reset, which I was able to get here. I'm going to check in with the staff at the long-term more often and give them my wallet so I don't impulsively buy anything . Pt reports they plan on following up with their outpatient providers. pt denies SI/HI/VH/AH. Pt to return to long-term. Time spent discussing smoking cessation with patient: 3 to 10 minutes Status at Discharge Cognitive/behavioral status at discharge: Patient was interviewed prior to discharge and found to be fully oriented and without SI or HI. Patient has insight and demonstrates good judgment in terms of wanting to pursue treatment. Patient has a safety plan that includes presenting to the closest ER or calling 911 if feeling unsafe. Functional status at discharge: independent ambulation Overall status at discharge: patient is back to baseline Time Spent with Patient Time attestation: Total time managing care of this patient today _20___ minutes. Time spent: Less than 30 minutes Discharge Plan Discharge Anticipated Discharge Date/Time: 06/14/23 11:00 Patient Disposition: Home, Self-Care Discharge Diagnosis: PTSD, Borderline Personality d/o Referrals: [facility] with Dr. Moss [Other] - 06/27/23 1:45 pm [facility] with Racquel [Other] - 06/18/23 11:00 am [facility] [Other] - 1 Week ([phone] [id number]) Nikki Hairston FNP [Primary Care Provider] - 06/26/23 9:45 am (in office) Discharge Medications: Continued acetaminophen 325 mg tablet 650 mg PO Q6H PRN (Reason: Pain) desmopressin 0.1 mg tablet 0.2 mg PO BEDTIME duloxetine 20 mg capsule,delayed release(DR/EC) 20 mg PO DAILY haloperidol 5 mg tablet 5 mg PO BID PRN (Reason: Anxiety) haloperidol 5 mg tablet 5 mg PO DAILY lidocaine 5 % adhesive patch,medicated 1 patch topical DAILY ibuprofen 400 mg tablet 400 mg PO TID PRN (Reason: Pain) methylphenidate HCl 27 mg Tablet Extended Release 24hr 27 mg PO DAILY trazodone 50 mg tablet 50 mg PO BEDTIME PRN (Reason: Sleep) prazosin 1 mg capsule 1 mg PO BEDTIME topiramate 50 mg tablet 150 mg PO BEDTIME duloxetine 60 mg capsule,delayed release(DR/EC) 60 mg PO DAILY Discontinued topiramate 25 mg tablet 25 mg PO BEDTIME Discharge Orders: Discharge Order (Routine); Ordered 06/14/23 Ordered By: Shira Angelo Diet: Regular diet Activity on Discharge: As tolerated Stand Alone Forms: Patient Portal Discharge page, Community Support Print Language: Citizen Of [place] Care Plan Goals: Maintain mood and safe behaviors Take medications as prescribed Practice coping skills Continue with outpatient providers and reach out to them as needed Health Concerns: Mood stability and behaviors Plan of Treatment: Follow up with your PCP, psychiatric provider and other outpatient providers regarding above concerns Take medications as prescribed Assessment: Patient was interviewed prior to discharge and found to be fully oriented and without SI or HI. Patient has insight and demonstrates good judgment in terms of wanting to pursue treatment. Patient has a safety plan that includes presenting to the closest ER or calling 911 if feeling unsafe. Discharge Date/Time: 06/14/23 11:18
== END 2023-06-14 11:18 | disposition home or self-care (01) | DRG 883 ==
PROVIDERS: Clinical Nurse Specialist Psychiatric/Mental Health, Adult; Admitting Provider Psychiatry & Neurology Psychiatry; PCP Nurse Practitioner Family; Visit Provider Psychiatry & Neurology Psychiatry
DX: F60.3 Borderline personality disorder (principal); R45.851 Suicidal ideations; G89.29 Other chronic pain; F64.0 Transsexualism; F43.10 Post-traumatic stress disorder, unspecified; F17.210 Nicotine dependence, cigarettes, uncomplicated; Z91.51 Personal history of suicidal behavior; Z91.52 Personal history of nonsuicidal self-harm; Z71.6 Tobacco abuse counseling; Z79.899 Other long term (current) drug therapy
CPT/HCPCS: 36415; 80061; 82607; 82746; 83735; 84439; 84443

== ENCOUNTER → 2023-06-07 19:03 | Outpatient (BNV) | payer MEDICAID, SELFPAY | PROVIDERS: Admitting Provider Psychiatry & Neurology Psychiatry; PCP Nurse Practitioner Family; Visit Provider Student in an Organized Health Care Education/Training Program | DX: Z02.2 Encounter for examination for admission to residential institution (principal) | CPT/HCPCS: 99429 ==

== ENCOUNTER → 2023-06-07 19:03 | Outpatient (BNV) | payer OTHER, SELFPAY | PROVIDERS: Admitting Provider Psychiatry & Neurology Psychiatry; PCP Nurse Practitioner Family; Visit Provider Social Worker | DX: F60.3 Borderline personality disorder (principal); F43.11 Post-traumatic stress disorder, acute | CPT/HCPCS: 90792; 99231; 99238; 99499 ==

== ENCOUNTER 2023-06-27 19:28 | Inpatient (IN) | payer OTHER, SELFPAY ==
--- OUTSIDE RECORDS SUMMARY | 2023-06-27 19:35 | XMS_ITS | Continuity of Care Document ---
Author Organization [facility] Address [address] [place] [address]- Care Team Providers Care Asphalt Paving Machine Operator Name Role Phone Yovanny RILEY, Nikki Primary Care Physician Encounter [facility] [place](s): 06/14/23 - 06/15/[address] [address]- Encounter Diagnosis Suicide attempt(Final) - 06/15/23 Borderline personality disorder(Final) - 06/15/23 Discharge Disposition: A-D/C Home Attending Physician: Misty Canseco MD Admitting Physician: Misty Canseco MD Referring Physician: Not on Staff, Referring [...] 0 Refills, Maintenance, 04/03/23 8:17:00 EST, Tablet, [facility], [id number], Partial fill upon patient request if the prescription is for a schedule II opioid drug., 167, cm, 02/19/24 20:... Start Date: 04/03/23 Status: Ordered duloxetine 20 mg oral enteric coated capsule 1 capsule = 20 mg, By Mouth, Daily, # 60 capsule, 0 Refills, Maintenance, 06/06/23 11:45:00 EDT, ECCapsule, Partial fill upon patient request if the prescription is for a schedule II opioid drug. Start Date: 06/06/23 Status: Ordered duloxetine 60 mg oral enteric coated capsule = 60 mg, By Mouth, Daily, # 30 capsule, 0 Refills, Maintenance, 04/03/23 8:17:00 EST, Capsule, [facility], [place] [place] [id number], Partial fill upon patient request if the prescription is for a schedule II opioid drug., 167, cm, 04/02/23 20:16:00 EST,... Start Date: 04/03/23 Status: Ordered haloperidol 5 mg oral tablet 5 mg, By Mouth, Daily, # 30 tablet, Refills 0, Tot. Refills 0, Maintenance, 04/03/23 8:19:00 EST, Route to Pharmacy Electronically, [facility], [id number], Partial fill upon patient request if the prescription is for a schedule II opioid d... Start Date: 04/03/23 Status: Ordered haloperidol 5 mg oral tablet 5 mg, By Mouth, 2 times a day, PRN, # 60 tablet, Refills 0, Tot. Refills 0, Maintenance, Anxiety, 04/03/23 8:20:00 EST, Route to Pharmacy Electronically, [facility], [id number], Partial fill upon patient request if the [...] opioid drug. Start Date: 04/03/23 Status: Ordered lidocaine 1.8% patch Topically, 2 times a day, 0 Refills, Maintenance, 06/06/23 11:41:00 EDT, Partial fill upon patient request if the prescription is for a schedule II opioid drug. Start Date: 06/06/23 Status: Ordered methylphenidate 27 mg oral tablet, extended release = 27 mg, By Mouth, Daily, # 30 tablet, 0 Refills, Maintenance, 04/03/23 8:17:00 EST, ER Tablet, [facility], [id number], Partial fill upon patient request if the [...] opioid drug. Start Date: 04/03/23 Status: Ordered nicotine 14 mg/24 hr transdermal film, extended release 1 patch, Topically, Daily, # 30 patch, 0 Refills, Maintenance, 06/06/23 11:44:00 EDT, Patch, Partial fill upon patient request if the prescription is for a schedule II opioid drug. Start Date: 06/06/23 Status: Ordered prazosin 1 mg oral capsule 1 mg, By Mouth, Daily at bedtime, # 30 capsule, Refills 0, Tot. Refills 0, Maintenance, 04/03/23 8:18:00 EST, Route to Pharmacy Electronically, [facility], [place] [place] [facility]-[id number], Partial fill upon patient request if the prescription is for a schedule... Start Date: 04/03/23 Status: Ordered prazosin 1 mg oral capsule 1 mg, Capsule, By Mouth, 06/14/23 21:00:00 EDT Start Date: 06/14/23 Stop Date: 06/14/23 Status: Completed topiramate 50 mg oral tablet = 150 mg, By Mouth, Daily at bedtime, # 90 tablet, 0 Refills, Maintenance, 04/03/23 8:18:00 EST, Tablet, [facility], [place] [place] [facility]-[id number], Partial fill upon patient request if the prescription is for a schedule II opioid drug., 167, cm, 04/02/23 20:... Start Date: 04/03/23 Status: Ordered Topiramate Tablet 25 mg, By Mouth, Daily at bedtime, Refills 0, Maintenance, 06/06/23 11:43:00 EDT, Partial fill uponpatient request if the prescription is for a schedule II opioid drug. Start Date: 06/06/23 Status: Ordered traZODone 50 mg oral tablet 50 mg, By Mouth, Daily at bedtime, PRN, # 30 tablet, Refills 0, Tot. Refills 0, Maintenance, Sleep,04/03/23 8:19:00 EST, Route to Pharmacy Electronically, [facility] [place]-[id number], Partialfill upon patient request if the prescription [...] Range]: 1 2 3 Height 168 cm (06/15/23 12:52 PM) 168 cm (06/14/23 7:27 PM) Weight 143 kg (06/15/23 12:52 PM) 143 kg (06/14/23 7:27 PM) Oxygen Saturation [94-100 %] 98 % (06/15/23 12:52 PM) 95 % (06/14/23 8:12 PM) 94 % (06/14/23 7:27 PM) Pulse Rate [55-90 bpm] 106 bpm *H* (06/15/23 12:52 PM) 110 bpm *H* (06/14/23 8:12 PM) 130 bpm *H* (06/14/23 7:27 PM) Body Mass Index [18.5-24.99 kg/m2] 50.67 kg/m2 *>HHI* (06/15/23 12:52 PM) Blood Pressure [90-138/55-84 mm Hg] 126/71mm Hg (06/15/23 12:52 PM) 107/61mm Hg (06/14/23 8:12 PM) 135/90mm Hg (06/14/23 7:27 PM) Respiratory Rate [16-30 br/min] 19 br/min (06/15/23 12:52 PM) 19 br/min (06/14/23 8:12 PM) 20 br/min (06/14/23 7:27 PM) Temperature [96.8-100.4 DegF] 97.2 DegF (06/15/23 12:52 PM) 97.8 DegF (06/14/23 8:12 PM) 97.4 DegF (06/14/23 7:27 PM) Mode of Delivery (Oxygen) Room air (06/15/23 12:52 PM) Room air (06/14/23 8:12 PM) Room air (06/14/23 7:27 PM) Blood pressure sites Arm, right (06/15/23 12:52 PM) Arm, left (06/14/23 8:12 PM) Temperature Route Oral (06/15/23 12:52 PM) Temporal (06/14/23 8:12 PM) Temporal (06/14/23 7:27 PM) Dry Weight 143 kg (06/15/23 12:52 PM) 143 kg (06/14/23 7:27 PM) Social History Social History Type Response [...] Name: Kellee Garvin RN Position: [facility] RN Member Role: Primary Care Nurse Name: Maegan Diaz RN Position: [facility] RN Member Role: Primary Care Nurse Name: Genesis Lea RN Position: [facility] RN Member Role: Primary Care Nurse Name: Nikki Hairston NP Position: [facility] PCO Associate Professional Member Role: PCP Address: Address: [address] [place] [id number] Name: Alejandra Gilbert RN Position: [facility] RN Member Role: Primary Care Nurse Name: Zara Colon RN Position: [facility] RN Supv Member Role: Primary Care Nurse Name: Stefani Pinto RN Position: [facility] RN Member Role: Primary Care Nurse Name: Araceli Quevedo RN Position: [facility] RN Member Role: Primary Care Nurse Name: Fatoumata Loyd RN Position: [facility] RN Member Role: Primary Care Nurse Name: Melissa Stapleton RN Position: [facility] RN Member Role: Primary Care Nurse Name: Ligia Stapleton RN Position: [facility] RN Member Role: Primary Care Nurse Name: Melissa Davison RN Position: [facility] ED RN W/OE and Tasks Member Role: Primary Care Nurse Name: Trinidad Ordonez RN Position: [facility] RN Member Role: Primary Care Nurse Name: Mariaelena Collazo RN Position: [facility] RN Member Role: Primary Care Nurse Name: Beatrice Pisano RN Position: [facility] RN Member Role: Primary Care Nurse Name: Shankar Man Position: [facility] RN Member Role: Primary Care Nurse Name: Nikki Croft RN Position: [facility] RN Member Role: Primary Care Nurse Name: Jennifer Almanzar RN Position: [facility] RN Member Role: Primary Care Nurse Name: John Cuellar RN Position: [facility] RN Member Role: Primary Care Nurse Name: Petrona Gayle RN Position: [facility] RN Member Role: Primary Care Nurse Name: Christos Godoy RN Position: [facility] RN Member Role: Primary Care Nurse Care Team Related Persons Name: DETENTION POWDER HANDYENI Address: [address] [place] [address] Name: MORGANELIZA RUBIOLY Address: home [address] [place] [address] Name: SUNDAY MORA Address: home [address] [place] [id number]
--- OUTSIDE RECORDS SUMMARY | 2023-06-27 19:36 | XMS_ITS | Continuity of Care Document ---
Author Organization [facility] Address [address] [place] [address]- Care Team Providers Care Seo Strategist Name Role Phone Yovanny RILEY, Nikki Primary Care Physician [phone] Encounter [facility] Date(s): 06/17/23 - 06/17/[address] [address]- Discharge Disposition: A-D/C Home Attending Physician: Misty Cutler MD Admitting Physician: Misty Cutler MD Referring Physician: Not on Staff, Referring MD Allergies, Adverse Reactions, Alerts Substance Reaction Severity Status Trileptal Active Geodon full body tremors Active Thorazine Skin rash Active Immunizations Given and Recorded Vaccine Date [...] 0 Refills, Maintenance, 04/03/23 8:17:00 EST, Tablet, [facility]-[id number], Partial fill upon patient request if the [...] 0 Refills, Maintenance, 04/03/23 8:17:00 EST, Capsule, [facility]-[id number], Partial fill upon patient request if the prescription is for a schedule II opioid drug., 167, cm, 04/02/23 20:16:00 EST,... Start Date: 04/03/23 Status: Ordered haloperidol 5 mg oral tablet 5 mg, By Mouth, Daily, # 30 tablet, Refills 0, Tot. Refills 0, Maintenance, 04/03/23 8:19:00 EST, Route to Pharmacy Electronically, [facility]-[id number], Partial fill upon patient request if the prescription is for a schedule II opioid d... Start Date: 04/03/23 Status: Ordered haloperidol 5 mg oral tablet 5 mg, By Mouth, 2 times a day, PRN, # 60 tablet, Refills 0, Tot. Refills 0, Maintenance, Anxiety, 04/03/23 8:20:00 EST, Route to Pharmacy Electronically, [facility]-[id number], Partial fill upon patient request if the [...] Refills, Maintenance, 04/03/23 8:17:00 EST, ER Tablet, [facility]-[id number], Partial fill upon patient request if the [...] 04/03/23 8:18:00 EST, Route to Pharmacy Electronically, [facility]-[id number], Partial fill upon patient request if the prescription is for a schedule... Start Date: 04/03/23 Status: Ordered topiramate 50 mg oral tablet = 150 mg, By Mouth, Daily at bedtime, # 90 tablet, 0 Refills, Maintenance, 04/03/23 8:18:00 EST, Tablet, [facility]-[id number], Partial fill upon patient request if the [...] Sleep,04/03/23 8:19:00 EST, Route to Pharmacy Electronically, [facility]-[id number], Partialfill upon patient request if the prescription [...] to oldest [Reference Range]: 1 2 Height 173 cm (06/17/23 4:23 AM) 173 cm (06/17/23 4:20 AM) Weight 145 kg (06/17/23 4:23 AM) 145 kg (06/17/23 4:20 AM) Oxygen Saturation [94-100 %] 97 % (06/17/23 4:20 AM) Pulse Rate [55-90 bpm] 100 bpm *H* (06/17/23 4:20 AM) Body Mass Index [18.5-24.99 kg/m2] 48.45 kg/m2 *>HHI* (06/17/23 4:20 AM) Blood Pressure [90-138/55-84 mm Hg] 126/ 87mm Hg (06/17/23 4:20 AM) Respiratory Rate [16-30 br/min] 20 br/mi n (06/17/23 4:20 AM) Temperature [96.8-100.4 DegF] 96.8 DegF (06/17/23 4:20 AM) Mode of Delivery (Oxygen) Room air (06/17/23 4:20 AM) Temperature Route Temporal (06/17/23 4:20 AM) Dry Weight 145 kg (06/17/23 4:23 AM) 145 kg (06/17/23 4:20 AM) Social History Social History Type Response Smoking Status 10 or more cigarette s (1/2 pack or more)/day in last 30 days entered on: 09/07/18 Sex Patient Care team information Care Team Personnel Name: Garcia Baez RN Position: S RN Member Role: Primary Care Nurse Name: Live RNDiamond Position: S RN Member Role: Primary Care Nurse Name: Leah Almonte RN Position: S RN Member Role: Primary Care Nurse Name: Natasha Dickey RN Position: S RN Member Role: Primary Care Nurse Name: Kellee Garvin RN Position: S RN Member Role: Primary Care Nurse Name: Maegan Diaz RN Position: [facility] RN Member Role: Primary Care Nurse Name: Genesis Lea RN Position: S RN Member Role: Primary Care Nurse Name: Nikki Hairston NP Position: [facility] PCO Associate Professional Member Role: PCP Address: Address: [address] [place] [address] Name: Alejandra Gilbert RN Position: S RN Member Role: Primary Care Nurse Name: Zara Colon RN Position: [facility] RN Supv Member Role: Primary [...] Care Nurse Name: Beatrice Pisano RN Position: [facility] RN Member Role: Primary Care Nurse Name: Shanakr Man Position: [facility] RN Member Role: Primary Care Nurse Name: Nikki Croft RN Position: [facility] RN Member Role: Primary Care Nurse Name: Jennifer Almanzar RN Position: [facility] RN Member Role: Primary Care Nurse Name: John Cuellar RN Position: [facility] RN Member Role: Primary Care Nurse Name: Petrona Gayle RN Position: [facility] RN Member Role: Primary Care Nurse Name: Christos Godoy RN Position: [facility] RN Member Role: Primary Care Nurse Care Team Related Persons Name: INTERMEDIATE AERONAUTICAL ENGINEERING OFFICERYENI Address: home [address] [place] [address] Name: YULIYA MORA Address: home [address] [place] [address] Name: SUNDAY MORA Address: home [address] [place] [address]
--- OUTSIDE RECORDS SUMMARY | 2023-06-27 19:36 | XMS_ITS | Continuity of Care Document ---
Author Organization [facility] Address [address] [place] [address]- Care Team Providers Care President [place] Name Role Phone Yovanny RILEY, Nikki Primary Care Physician [phone] Encounter [facility] Date(s): 06/04/23 - 06/07/[address] [address]- Encounter Diagnosis Tylenol overdose(Final) - 06/04/23 Discharge Disposition: Transferred to short-term general hospit Attending Physician: Andre ESTES, Patti Grimes Admitting [...] Maintenance, 04/03/23 8:17:00 EST, Tablet, [facility]-[id number], Partial fill upon patient request if the [...] Maintenance, 04/03/23 8:17:00 EST, Capsule, [facility]-[id number], Partial fill upon patient request if the prescription is for a schedule II opioid drug., 167, cm, 04/02/23 20:16:00 EST,... Start Date: 04/03/23 Status: Ordered Flovent Diskus 50 mcg/inh inhalation powder 1 each, Inhalation, 2 times a day, # 60 each, 0 Refills, Maintenance, 06/06/23 11:37:00 EDT, Powder, Partial fill upon patient request if the prescription is for a schedule II opioid drug. Start Date: 06/06/23 Status: Ordered haloperidol 5 mg oral tablet 5 mg, By Mouth, Daily, # 30 tablet, Refills 0, Tot. Refills 0, Maintenance, 04/03/23 8:19:00 EST, Route to Pharmacy Electronically, [facility]-[id number], Partial fill upon patient request if the prescription is for a schedule II opioid d... Start Date: 04/03/23 Status: Ordered haloperidol 5 mg oral tablet 5 mg, By Mouth, 2 times a day, PRN, # 60 tablet, Refills 0, Tot. Refills 0, Maintenance, Anxiety, 04/03/23 8:20:00 EST, Route to Pharmacy Electronically, [facility]-[id number], Partial fill upon patient request if the [...] 04/03/23 8:17:00 EST, ER Tablet, [facility]-[id number], Partial fill upon patient request if the [...] EST, Route to Pharmacy Electronically, [facility]-[id number], Partial fill upon patient request if the prescription is for a schedule... Start Date: 04/03/23 Status: Ordered topiramate 50 mg oral tablet = 150 mg, By Mouth, Daily at bedtime, # 90 tablet, 0 Refills, Maintenance, 04/03/23 8:18:00 EST, Tablet, [facility]-[id number], Partial fill upon patient request if the [...] EST, Route to Pharmacy Electronically, [facility]-[id number], Partialfill upon patient request if the prescription [...] Range]: 1 2 3 Height 168 cm (06/05/23 1:46 AM) 168 cm (06/04/23 7:45 PM) Weight 147 kg (06/05/23 1:46 AM) 136.5 kg (06/04/23 7:45 PM) Oxygen Saturation [94-100 %] 97 % (06/07/23 6:00 PM) 95 % (06/07/23 12:00 PM) 95 % (06/07/23 7:00 AM) Pulse Rate [55-90 bpm] 88 bpm (06/07/23 12:00 PM) 77 bpm (06/07/23 7:00 AM) 82 bpm (06/06/23 9:00 PM) Body Mass Index [18.5-24.99 kg/m2] 52.08 kg/m2 *>HHI* (06/05/23 1:46 AM) Blood Pressure [90-138/55-84 mm Hg] 127/76mm Hg (06/07/23 6:00 PM) 118/80mm Hg (06/07/23 12:00 PM) 130/73mm Hg (06/07/23 7:00 AM) Respiratory Rate [16-30 br/min] 18 br/min (06/07/23 6:00 PM) 20 br/min (06/07/23 12:00 PM) 18 br/min (06/07/23 9:01 AM) Temperature [96.8-100.4 DegF] 98.6 DegF (06/07/23 6:00 PM) 98.5 DegF (06/07/23 12:00 PM) 97.7 DegF (06/07/23 7:00 AM) Mode of Delivery (Oxygen) Room air (06/07/23 6:00 PM) Room air (06/07/23 12:00 PM) Room air (06/07/23 7:00 AM) Blood pressure sites Arm, left (06/06/23 9:00 PM) Arm, left (06/06/23 4:00 PM) Arm, left (06/06/23 12:00 PM) Temperature Route Oral (06/07/23 6:00 PM) Oral (06/07/23 12:00 PM) Oral (06/07/23 7:00 AM) Dry Weight 147 kg (06/05/23 1:46 AM) 136.5 kg (06/04/23 7:45 PM) Social History Social History Type Response Smoking Status 10 or more cigarette s (1/2 pack or more)/day in last 30 days entered on: 09/07/18 Sex Note * Jourdan CHAVEZ, Cindy: PERFORM Event Display: Discharge/Transfer Note Hospital Authored Date: [id number] Nursing Discharge Note Entered On: 06/07/2023 18:37 EDT Performed On: 06/07/2023 18:32 EDT by Cindy Soliman RN Nursing Discharge Note 2 Discharge Time : 06/07/2023 18:20 EDT Discharge Level of Care at Discharge : Psychiatric Facility/Unit Name of Receiving Short Term Gen Hosp : [facility] Patient Left Unit Via : Wheelchair Patient Accompanied Off Unit with : Ambulance/Chair Van Personnel Handover Given to Transport Personnel : Yes DC Instructions Provided & Signed by Pt : No Patient Understands D/C Instructions : Yes Patient Instructions Discharge Signed : No Instructions for Discharge Comments : patient on section 12 Did Pt have Specialty Bed or Wound Vac : No Cindy Soliman RN - 06/07/2023 18:32 EDT * Ad Oliva MD: PERFORM Event Display: Discharge/Transfer Note Hospital Authored Date: [id number] Patient: ??JORGE MORA ? Age:??22 Years?Sex:??Female?:??2000?? Patient Information Discharge Location: [facility] Primary Care Physician: Nikki Hairston NP Admit Date/Time: 06/04/23 21:53 Discharge Disposition Discharge Disposition: Home: No Services Discharge Diagnosis Drug overdose (T50.901A) Tylenol overdose (T39.1X1A) Borderline personality disorder (F60.3) _ Discharge Medications Acetaminophen (Tylenol 325 mg oral tablet)?650?Milligram?By Mouth?Every 6 hours?as needed?Pain , Moderate Desmopressin (desmopressin 0.1 mg oral tablet)?0.2?Milligram?By Mouth?Daily at bedtime Duloxetine (duloxetine 60 mg oral enteric coated capsule)?60?Milligram?By Mouth?Daily Duloxetine (duloxetine 20 mg oral enteric coated capsule)?1?capsule?20?Milligram?By Mouth?Daily Fluticasone (Flovent Diskus 50 mcg/inh inhalation powder)?1?Each?Inhalation?2 times a day Haloperidol (haloperidol 5 mg oral tablet)?5?Milligram?By Mouth?Daily Haloperidol (haloperidol 5 mg oral tablet)?5?Milligram?By Mouth?2 times a day?as needed?Anxiety HydrOXYzine (hydrOXYzine pamoate 50 mg oral capsule)?50?Milligram?By Mouth?Every 6 hours?as needed?Anxiety Ibuprofen (ibuprofen 400 mg oral tablet)?400?Milligram?By Mouth?3 times a day?as needed?Pain , Mild Lidocaine Topical (lidocaine 1.8% patch)?Topically?2 times a day Methylphenidate (methylphenidate 27 mg oral tablet, extended release)?27?Milligram?By Mouth?Daily Milk of Magnesia (Milk of Magnesia Liquid)?30?Milliliter?By Mouth?2 times a day?as needed?Constipation Nicotine (nicotine 14 mg/24 hr transdermal film, extended release)?1?patch(es)?Topically?Daily Prazosin (prazosin 1 mg oral capsule)?1?Milligram?By Mouth?Daily at bedtime Topiramate (topiramate 50 mg oral tablet)?150?Milligram?By Mouth?Daily at bedtime Topiramate (Topiramate Tablet)?25?Milligram?By Mouth?Daily at bedtime Trazodone (traZODone 50 mg oral tablet)?50?Milligram?By Mouth?Daily at bedtime?as needed?Sleep ? Inpatient Medications Medications (11) Active SCHEDULED: (7) DDAVP ??0.1 mg Tablet (desmopressin 0.1 mg oral tablet) ??0.2 mg, By Mouth, Daily at bedtime Duloxetine 60 mg Capsule (Duloxetine) ??60 mg, By Mouth, Daily Methylphenidate 27 mg ER Tablet (Concerta 27 mg oral tablet, extended release) ??27 mg, By Mouth, Daily Phos-NaK Oral Powder (Potassium/Sodium Phosphates Oral Powder) ??1 pack/packet, By Mouth, 3 times aday Prazosin 1 mg Capsule (prazosin 1 mg oral capsule) ??1 mg, By Mouth, Daily at bedtime Topiramate 25 mg Tablet + Topiramate 100 mg Tablet (Topiramate Tablet) ??150 mg, By Mouth, Daily atbedtime Trazodone 50 mg Tablet (traZODone 50 mg oral tablet) ??50 mg, By Mouth, Daily at bedtime CONTINUOUS: (0) PRN: (4) Haloperidol 5 mg Tablet (haloperidol 5 mg oral tablet) ??5 mg, By Mouth, 2 times a day HydrOXYzine Pamoate 25mg Capsule (hydrOXYzine pamoate 25 mg oral capsule) ??50 mg, By Mouth, Every 6 hours Ondansetron 2mg/mL Inj (2mL Vial) (Zofran Inj) ??4 mg, IV Push, Every 6 hours PROCHLORperazine 5mg/ml Inj (Compazine Inj) ??10 mg 2 mL, IV Push, Every 6 hours ? Allergies Allergies ?(Active and Proposed Allergies Only) Thorazine? (Severity: Unknown severity, Onset: Unknown) ?Reactions: Skin rash Geodon? (Severity: Unknown severity, Onset: Unknown) ?Reactions: full body tremors Trileptal? (Severity: Unknown severity, Onset: Unknown) ? Hospital Course Patient is identifying with the name Neal with they/them pronouns. ?? Neal presented with mild transaminitis and acetaminophen level of 249 increasing to 273 after reported toxic ingestion of acetaminophen. They had only just been discharged from this hospital without SI and it was not their intent to kill themselves when they left nor when they took tylenol. Poison control was contacted and recommended interval labs with acetylcysteine infusion, charcoal and IV fluids. Labs were followed until acetaminophen was undetectable. Throughout their stay, they had a very reassuring clinical presentation. Initially some nausea that responded to zofran which improved over time and they were able to tolerate oral intake. PT asked to evaluate patient's capability to ambulate, determined to be functionally independent without additional needs. ?? CALENDER LET OFF OPERATOR performed bed search for patient, located bed at [facility]. Spoke with transfer physician. ?? My hope is Neal will be able to access DBT or other skill building therapeutic services. I note the patient's insight into the cyclical nature of their recurrent presentations and its relationship to common patterns in BPD. The patient is agreeable to this diagnosis and willing to recognize it inour conversation. ? Quoted from progress note 06/04: I spoke with Neal at length today regarding their understanding of these cyclical nature of their self-harming behaviors and recurrent presentations to the emergency department and hospital. They do have fair insight regarding the nature of this cycle and they are aware of their diagnosis of borderline personality disorder and agree that it is a good fit for their symptoms. Neal mentions there is something embarrassing that they prefer to avoid discussing. Through some careful probing, Neal is able to acknowledge that sometimes going to the hospital is something that happens because they want it to happen and that there are elements of going to the hospital that they enjoy. They enjoy meeting interesting people and having compelling conversations. They also acknowledged that it canbe nice to feel cared for. We also discussed that there are elements of going to the hospital that are not as pleasant. They do not feel well after some of the strategies they utilized to get into the hospital. For example, right now Neal feels tired and somewhat nauseous due to toxic acetaminophen ingestion which happened shortly after being discharged from this hospital. ?? Neal was surprised to be discharged back to home from her previous stay here but felt willing to try and make it work. Neal does not endorse suicidal ideation or intent to kill themselves. They describe going home and not expecting to have thoughts of harming themselves, however once the thoughts present themselves they are persistent. Aslynn attempts to distract themselves when they have these thoughts, but this process seemingly only delays the inevitable - because ultimately the thoughtsto harm themselves continues to remain present. ?? I offered the idea that so long as Neal wants to preserve their ability to return to the hospitaland sees that as an appealing experience, they may actually resist interventions which may be helpful in preventing them from going to the hospital. The result then being that Francieynn would not sufficiently engage with and utilize practices that would result in them changing their self harming behaviors. Alecn agreed that this was an apt description of their pattern. Crucially, they also acknowledged that they ultimately did not think the cycle of being in and out of the hospital or inpatient psychiatric care was worth preserving. ? Objective Vital Signs?? Temperature: 98.5 DegF (06/07/23 12:00:00) Temperature Route: Oral (06/07/23 12:00:00) Pulse Rate: 88 bpm (06/07/23 12:00:00) Respiratory Rate: 20 br/min (06/07/23 12:00:00) Systolic Blood Pressure: 118 mm Hg (06/07/23 12:00:00) Diastolic Blood Pressure: 80 mm Hg (06/07/23 12:00:00) Blood pressure sites: Arm, left (06/06/23 21:00:00) Pulse Pressure: 38 mm Hg (06/07/23 12:00:00) Oxygen Saturation: 95 % (06/07/23 12:00:00) Mode of Delivery (Oxygen): Room air (06/07/23 12:00:00) Early Warning Score: 2 (06/07/23 12:25:48) ? Intake/Output? 06/03 21:53 06/06 07:00 06/05 07:00 06/04 07:00 06/03 07:00 ?? 06/06 15:15 06/06 15:15 06/06 06:59 06/05 06:59 06/04 06:59 Intake ? 1155.3 ?0 ?240 ?400 ?515.3 Output ?0 ?0 ?0 ?0 ?0 Net Total ? 1155.3 ?0 ?240 ?400 ?515.3 ? Urine Count ? 14 ?0 ?3 ?9 ?2 Emesis Count ?4 ?0 ?0 ?0 ?4 ? . Physical Exam Constitutional: Alert, in no distress. Mental Status: Oriented to person, place and time. Respiratory: Clear to auscultation. No wheezing, rales or rhonchi. Cardiovascular: S1 S2 regular. No murmurs, rubs or gallops. Neurologic: Moves all extremities spontaneously. Musculoskeletal: No gross deformities.? Pending Results COVID-19 (2019 Novel Coronavirus) PCR ordered on 06/04/2023 INR ordered on 06/04/2023 Follow-Up Appointments Added Follow Up ?Time Frame ?Comments Nikki Hairston NP Patient Instructions Prescription Given this visit: No new prescriptions during this visit.? Patient Instructions Given: You were??admitted for??toxic ingestion of??acetaminophen.??While hospitalized??we??gave you fluidsand??medications??to??try and??reduce??the damage the??acetaminophen??can??do??to your??body, particularly??in placed like??your liver.??You liver??enzymes were??elevated but??decreased over time.??In??order to??keep you??safe, we recommend??going to an inpatient??psych??unit to??develop??strategies and treatments to avoid self-harm and keep??yourself??safe??outside of the hospital.? Patient Follow-up: Added Follow Up ?Time Frame ?Comments Yovanny RILEY, Nikki Post Discharge Care Discharge ?06/07/23 15:03:00 EDT Discharge Prescriptions ?None, 06/07/23 15:04:00 EDT Home Health Face to Face ^HomeHealthFTF Results Discharge Labs BLOOD COUNT & DIFF WBC 7.0 k/mm3 ()?? 06/07/2023 05:21 RBC 4.59 m/mm3 ()?? 06/07/2023 05:21 Hgb 13.2 Gm/dL ()?? 06/07/2023 05:21 Hct 40.5 % ()?? 06/07/2023 05:21 MCV 88.2 femtoliters ()?? 06/07/2023 05:21 MCH 28.8 pg ()?? 06/07/2023 05:21 MCHC 32.6 g/dL (Low)?? 06/07/2023 05:21 Platelet Count 184 k/mm3 ()?? 06/07/2023 05:21 RDW-SD 42.4 femtoliters ()?? 06/07/2023 05:21 MPV 12.3 femtoliters ()?? 06/07/2023 05:21 Nucleated RBC (Automated) 0.0 #/100 WBC'S ()?? 06/07/2023 05:21 Abs. NRBC 0.0 k/mm3 ()?? 06/07/2023 05:21 Abs. Neut 4.7 k/mm3 ()?? 06/04/2023 20:39 Abs. Lymph 2.3 k/mm3 ()?? 06/04/2023 20:39 Abs. Bannock 1.0 k/mm3 (High)?? 06/04/2023 20:39 Abs. Eo 0.2 k/mm3 ()?? 06/04/2023 20:39 Abs. Baso 0.1 k/mm3 ()?? 06/04/2023 20:39 Neut % 56.9 % ()?? 06/04/2023 20:39 Lymph % 27.3 % ()?? 06/04/2023 20:39 [place]annock % 12.3 % (High)?? 06/04/2023 20:39 Eos % 2.2 % ()?? 06/04/2023 20:39 Baso % 0.7 % ()?? 06/04/2023 20:39 Imm Gran 0.6 % ()?? 06/04/2023 20:39 Abs. Imm Gran 0.1 k/mm3 ()?? 06/04/2023 20:39 ?? CHEM GENERAL Sodium 142 mmol/L ()?? 06/07/2023 05:21 Potassium 3.5 mmol/L (Low)?? 06/07/2023 05:21 Chloride 110 mmol/L (High)?? 06/07/2023 05:21 Bicarbonate Level 23 mmol/L ()?? 06/07/2023 05:21 Anion Gap 9 ()?? 06/07/2023 05:21 Glucose Level 113 mg/dL (High)?? 06/05/2023 12:59 BUN 6 mg/dL ()?? 06/06/2023 05:44 Creatinine-Blood 0.7 mg/dL ()?? 06/07/2023 05:21 Estimated GFR Creatinine 121 ML/MIN/1.73 M2 ()?? 06/07/2023 05:21 Calcium 8.5 mg/dL (Low)?? 06/05/2023 12:59 Calcium, Ionized pH Corrected 1.26 mmol/L ()?? 06/06/2023 05:44 Phosphorus 2.1 mg/dL (Low)?? 06/06/2023 05:44 Magnesium 1.9 mg/dL ()?? 06/06/2023 05:44 Protein, Total 6.4 Gm/dL ()?? 06/06/2023 10:09 Albumin 3.9 Gm/dL ()?? 06/06/2023 10:09 AG Ratio 1.4 ()?? 06/04/2023 23:13 Alkaline Phosphatase 69 units/L ()?? 06/06/2023 10:09 Lipase 59 units/L ()?? 06/04/2023 20:39 AST (SGOT) 29 units/L ()?? 06/07/2023 05:21 ALT (SGPT) 52 units/L (High)?? 06/07/2023 05:21 Bilirubin, Total 0.3 mg/dL ()?? 06/06/2023 10:09 Bilirubin, Direct 0.1 mg/dL ()?? 06/06/2023 10:09 Bilirubin, Indirect 0.2 mg/dL ()?? 06/06/2023 10:09 Lactate 1.5 mmol/L (Low)?? 06/05/2023 12:59 ?? COAG INR 1.0 ()?? 06/07/2023 05:21 Protime (PT) 10.9 seconds ()?? 06/07/2023 05:21 ?? ENDOCRINE/TUMOR MARKER Blood <1 mIU/mL ()?? 06/04/2023 20:39 ? HEME OTHER Hold Lavender Top SPECIMEN DISCARDED AFTER 24 HOURS. ()?? 06/05/2023 08:26 ? MISC. CHEMISTRY Hold Gel Top SPECIMEN DISCARDED AFTER 1 WEEK ()?? 06/06/2023 10:08 ? TOXICOLOGY/TDM Ethanol, Serum or Plasma NONE DETECTED mg/dL (N)?? 06/04/2023 20:39 Salicylate Level <0.3 mg/dL (Low)?? 06/04/2023 20:39 Barbiturate Screen, Urine NONE DETECTED ()?? 06/04/2023 20:14 Cannabinoid Screen, Urine NONE DETECTED ()?? 06/04/2023 20:14 Cocaine Metabolite Screen, Urine NONE DETECTED ()?? 06/04/2023 20:14 Benzodiazepine Screen, Urine NONE DETECTED ()?? 06/04/2023 20:14 Amphetamine Screen, Urine NONE DETECTED ()?? 06/04/2023 20:14 Opiate Screen, Urine NONE DETECTED ()?? 06/04/2023 20:14 Acetaminophen Level <5 mg/L (Low)?? 06/06/2023 05:44 ? UA/URINALYSIS Appear/Color, Urine COLORLESS ()?? 06/04/2023 20:14 Clarity CLEAR (N)?? 06/04/2023 20:14 Specific [place], Urine 1.015 ()?? 06/04/2023 20:14 pH, Urine 6.0 ()?? 06/04/2023 20:14 Albumin, Urine NEGATIVE (N)?? 06/04/2023 20:14 Glucose, Urine NEGATIVE (N)?? 06/04/2023 20:14 Ketones, Urine NEGATIVE (N)?? 06/04/2023 20:14 Bilirubin, Urine NEGATIVE (N)?? 06/04/2023 20:14 Hemoglobin, Urine NEGATIVE (N)?? 06/04/2023 20:14 Nitrite, Urine NEGATIVE (N)?? 06/04/2023 20:14 Leukocyte, Urine NEGATIVE (N)?? 06/04/2023 20:14 Urobilinogen NORMAL mg/dL (N)?? 06/04/2023 20:14 Hold Urine Culture Testing available 48 hours from time of collection. ()?? 06/04/2023 20:14 ? URINE OTHER Urine, NEGATIVE (N)?? 06/04/2023 20:14 Est Creatinine Clearance 116.65 mL/min ()?? 06/05/2023 13:49 ? * Andre ESTES, Patti Grimes: PERFORM Event Display: Discharge/Transfer Note Hospital Authored Date: Patient seen and examined, medical records reviewed.?? Case discussed with?Hazel??family support worker PGY 2. Patient's physical exam: General:??Alert, in no acute cardiopulmonary distress. Mental [...] II-XII grossly intact. No focal neurological deficits. Moves all extremities spontaneously. Sensation intact bilaterally. Skin:??No rashes or lesions. No petechiae or purpura. No edema. Musculoskeletal:??No cyanosis or clubbing. No gross deformities. Normal range of motion. ?? 22-year-old transgender patient with a past medical history significant for borderline personality disorder, depression, obesity, who presented to the ED with intentional drug overdose with acetaminophen, with initial Tylenol level of??273, now not detectable. ??Received acetylcysteine, charcoal and IV fluids??initially,??has been stable without??significant alteration in LFTs.?? CALENDER LET OFF OPERATOR evaluated patient recommending transfer to mental health unit, patient has been clinically hemodynamically stable, medically cleared to transfer to mental health unit in [place]??today. ??Rest of diagnoses and treatment as described by ??Hazel??family support worker PGY 2. I spent a total of??40?? minutes today reviewing the chart/medical records, speaking with the patient, ??formulating and discussing??the treatment plan, and documenting the findings and encounter.?? * Cindy Soliman RN: PERFORM, MODIFY Event Display: Patient Education/Instruction Authored Date: [id number] Inpatient Adult Discharge Instructions. [place] [id number] Name: JORGE MORA : 2000?? Visit: 06/04/2023 21:53?? Current Date: 06/07/2023 15:18 ?? Account: [id number]?? Inpatient Adult Discharge Instructions We would like [...] and their families. Surveys are administered by [employer] ?? If further treatment with your primary care physician or another doctor is recommended, it is important for you to keep the appointment. Call your primary care physician or return to the Emergency Department immediately if your condition worsens, fails to improve, or new symptoms develop. If you need to find a doctor, you can call [facility] for a referral at [phone] or toll free at [phone]) or log in to [email or web address] ?? [facility], in keeping with [facility] guidance, no longer requires face [...] a health care sharonda of your choosing. [employer] is a website that allows you to securely view your medical information including your hospital discharge summary, office visit summaries, medications and follow-up visits. You can also request appointments, renew medications, and request access to your medical information using a health care sharnoda of your choosing, or just ask a question. You can enroll at [email or web address] or register during your next office visit. You have been discharged from [facility], Patient Care Unit: [facility]??. If you have any questions regarding these instructions, including results of studies pending, afteryou leave, please call us and we will be happy to assist you 04/09. [facility] Your Care Team Attending Physician Patti Powell MD?? Consulting Providers Patti Powell MD?? Discharging Providers Ad Oliva MD Reason for Your Visit tylenol od?? Your Diagnosis Borderline personality disorder Drug overdose Medication overdose Tests Performed Below is a partial list of the tests performed during your hospitalization. You may have had other tests and procedures not included in this list. Please discuss all test results with your provider. Acetaminophen Level Alcohol Level ALT Amphetamine Urine Screen Aspirin Level AST Barbiturate Urine Screen Basic Metabolic Panel Benzodiazepine Urine Screen BUN Cannabinoid Urine Screen CBC CBC w/ Differential Cocaine Urine Screen Comprehensive Metabolic Panel Creatinine Electrolytes HOLD GEL TUBE HOLD LAVENDER TUBE INR Ionized Calcium Lactate Level LFT's Lipase Lytes Magnesium Level Opiate Screen Urine Phosphorus Level Serum Quantitative Test Urine Urinalysis w/hold for Urine Culture COVID-19 (2019 Novel Coronavirus) PCR?? INR?? Primary Care Provider Yovanny RILEY, Nikki? Advance Directive Health Care Proxy on File No Patient refuses to discuss Discharge Vitals Temperature: 98.5 DegF Height: 168 cm Pulse Rate: 88 bpm Weight: 147 kg Respiratory Rate: 20 br/min Body Mass Index:??52.08 kg/m2??Critical Systolic Blood Pressure: 118 mm Hg Body surface area: 2.62 Diastolic Blood Pressure: 80 mm Hg ?? Oxygen Saturation: 95 % ?? Studies Pending All studies ordered during this hospital stay have been completed unless listed below. Please discuss all pending results with your provider listed above in these instructions. ?? COVID-19 (2019 Novel Coronavirus) PCR?? INR?? What to do next Instructions From Your Doctor Prescription Given this visit: No new prescriptions during this visit.? Patient Instructions Given: You were??admitted for??toxic ingestion of??acetaminophen.??While hospitalized??we??gave you fluidsand??medications??to??try and??reduce??the damage the??acetaminophen??can??do??to your??body, particularly??in placed like??your liver.??You liver??enzymes were??elevated but??decreased over time.??In??order to??keep you??safe, we recommend??going to an inpatient??psych??unit to??develop??strategies and treatments to avoid self-harm and keep??yourself??safe??outside of the hospital.? Patient Follow-up: Added Follow Up ?Time Frame ?Comments Nikki Hairston NP ?? Orders? 06/07/23 15:03:00 EDT?? Prescriptions??, ??06/07/23 15:04:00 EDT?? You Need to Schedule the Following Appointments Follow Up with??Nikki Hairston NP Where: [address] [place] [address]- Discharge Medications JORGE MORA :2000 Visit Date:06/04/2023 Medications: Please continue your medications until treatment [...] tablet) 0.2 Milligram Oral Daily at Bedtime Tonight at bedtime Unchanged Duloxetine (duloxetine 20 mg oral enteric coated capsule) 1 capsule Oral Daily tomorrow morning Unchanged Duloxetine (duloxetine 60 mg oral enteric coated capsule) 60 Milligram Oral Daily tomorrow morning Unchanged Fluticasone (Flovent Diskus 50 mcg/ inh inhalation powder) 1 Each Inhalation Twice a day tonight at bedtime Unchanged Haloperidol (haloperidol 5 mg oral tablet) 5 Milligram Oral Twice a day as needed for Anxiety last dose at 0549 today Unchanged Haloperidol (haloperidol 5 mg oral tablet) 5 Milligram Oral Daily tomorrow morning Unchanged HydrOXYzine (hydrOXYzine pamoate 50 mg oral capsule) 50 Milligram Oral Every 6 hours as needed for Anxiety as needed. Not recently given Unchanged Ibuprofen (ibuprofen 400 mg oral tablet) 400 Milligram Oral 3 times a day as needed for Pain , Mild as needed Unchanged Lidocaine Topical (lidocaine 1.8% patch) Topically Twice a day as needed Unchanged Methylphenidate (methylphenidate 27 mg oral tablet, extended release) 27 Milligram Oral Daily tomorrow morning Unchanged Milk of Magnesia (Milk of Magnesia Liquid) 30 Milliliter Oral Twice a day as needed for Constipation as needed Unchanged Nicotine (nicotine 14 mg/ 24 hr transdermal film, extended release) 1 patch(es) Topically Daily tomorrow morning if they request Unchanged Prazosin (prazosin 1 mg oral capsule) 1 Milligram Oral Daily at Bedtime tonight at bedtime Unchanged Topiramate (topiramate 50 mg oral tablet) 150 Milligram Oral Daily at Bedtime tonight at bedtime Unchanged Topiramate (Topiramate Tablet) 25 Milligram Oral Daily at Bedtime tonight at bedtime Unchanged Trazodone (traZODone 50 mg oral tablet) 50 Milligram Oral Daily at Bedtime as needed for Sleep tonight at bedtime Prescription Given During Visit No new medications prescribed at time of discharge.?? Laboratory Results Below is a partial list of the most recent Laboratory test results done prior to this discharge. You may have had other tests and procedures not included in this list. Please discuss all test resultswith your provider. Est Creatinine Clearance - 116.65 mL/min (06/05/2023) Acetaminophen Level (06/06/2023) ? ?Acetaminophen Level - <5 mg/L Alcohol Level (06/04/2023) ???Ethanol, Serum or Plasma - NONE DETECTED ALT (06/07/2023) ???ALT (SGPT) - 52 units/L Amphetamine Urine Screen (06/04/2023) ???Amphetamine Screen, Urine - NONE DETECTED Aspirin Level (06/04/2023) ? ?Salicylate Level - <0.3 mg/dL AST (06/07/2023) ???AST (SGOT) - 29 units/L Barbiturate Urine Screen (06/04/2023) ???Barbiturate Screen, Urine - NONE DETECTED Basic Metabolic Panel (06/05/2023) ???Sodium - 138 mmol/L???Potassium - 3.7 mmol/L???Chloride - 109 mmol/L???Bicarbonate Level - 18 mmol/L???Anion Gap - 11???Glucose Level - 113 mg/dL???BUN - 8 mg/dL???Creatinine-Blood - 0.7 mg/dL???Estimated GFR Creatinine - 124 ML/MIN/1.73 M2???Calcium - 8.5 mg/dL Benzodiazepine Urine Screen (06/04/2023) ???Benzodiazepine Screen, Urine - NONE DETECTED BUN (06/06/2023) ???BUN - 6 mg/dL Cannabinoid Urine Screen (06/04/2023) ???Cannabinoid Screen, Urine - NONE DETECTED CBC (06/07/2023) ???WBC - 7.0 k/mm3???RBC - 4.59 m/mm3???Hgb - 13.2 Gm/dL???Hct - 40.5 %???MCV - 88.2 femtoliters???MCH - 28.8 pg???MCHC - 32.6 g/dL???Platelet Count - 184 k/mm3???RDW-SD - 42.4 femtoliters???MPV - 12.3 femtoliters???Nucleated RBC (Automated) - 0.0 #/100 WBC'S???Abs. NRBC - 0.0 k/mm3 CBC w/ Differential (06/04/2023) ???WBC - 8.3 k/mm3???RBC - 4.61 m/mm3???Hgb - 13.2 Gm/dL???Hct - 40.3 %???MCV - 87.4 femtoliters???MCH - 28.6 pg???MCHC - 32.8 g/dL???Platelet Count - 180 k/mm3???RDW-SD - 40.3 femtoliters???MPV - 12.1 femtoliters???Nucleated RBC (Automated) - 0.0 #/100 WBC'S???Abs. NRBC - 0.0 k/mm3???Abs. Neut - 4.7 k/mm3???Abs. Lymph - 2.3 k/mm3???Abs. Bannock - 1.0 k/mm3???Abs. Eo - 0.2 k/mm3???Abs. Baso - 0.1 k/mm3???Neut % - 56.9 %???Lymph % - 27.3 %???Bannock % - 12.3 %???Eos % - 2.2 %???Baso % - 0.7 %???Imm Gran - 0.6 %???Abs. Imm Gran - 0.1 k/mm3 Cocaine Urine Screen (06/04/2023) ???Cocaine Metabolite Screen, Urine - NONE DETECTED Comprehensive Metabolic Panel (06/04/2023) ???Sodium - 137 mmol/L???Potassium - 3.9 mmol/L???Chloride - 105 mmol/L???Bicarbonate Level - 18 mmol/L???Anion Gap - 14???Glucose Level - 178 mg/dL???BUN - 11 mg/dL???Creatinine-Blood - 0.4 mg/dL???Estimated GFR Creatinine - 146 ML/MIN/1.73 M2???Calcium - 8.5 mg/dL???Protein, Total - 6.6 Gm/dL???Al bumin - 3.8 Gm/dL???AG Ratio - 1.4???Alkaline Phosphatase - 70 units/L???AST (SGOT) - 26 units/L???ALT (SGPT) - 41 units/L???Bilirubin, Total - 0.1 mg/dL Creatinine (06/07/2023) ???Creatinine-Blood - 0.7 mg/dL???Estimated GFR Creatinine - 121 ML/MIN/1.73 M2 Electrolytes (06/07/2023) ???Sodium - 142 mmol/L???Potassium - 3.5 mmol/L???Chloride - 110 mmol/L???Bicarbonate Level - 23 mmol/L???Anion Gap - 9 HOLD GEL TUBE (06/06/2023) ???Hold Gel Top - SPECIMEN DISCARDED AFTER 1 WEEK HOLD LAVENDER TUBE (06/05/2023) ???Hold Lavender Top - SPECIMEN DISCARDED AFTER 24 HOURS. INR (06/07/2023) ???INR - 1.0???Protime (PT) - 10.9 seconds Ionized Calcium (06/06/2023) ???Calcium, Ionized pH Corrected - 1.26 mmol/L Lactate Level (06/05/2023) ???Lactate - 1.5 mmol/L LFT's (06/06/2023) ???Protein, Total - 6.4 Gm/dL???Albumin - 3.9 Gm/dL???Alkaline Phosphatase - 69 units/L???AST (SGOT) - 53 units/L???ALT (SGPT) - 61 units/L???Bilirubin, Total - 0.3 mg/dL???Bilirubin, Direct - 0.1 mg/dL???Bilirubin, Indirect - 0.2 mg/dL Lipase (06/04/2023) ???Lipase - 59 units/L Lytes (06/06/2023) ???Sodium - 140 mmol/L???Potassium - 3.4 mmol/L???Chloride - 112 mmol/L???Bicarbonate Level - 21 mmol/L???Anion Gap - 7 Magnesium Level (06/06/2023) ???Magnesium - 1.9 mg/dL Opiate Screen Urine (06/04/2023) ???Opiate Screen, Urine - NONE DETECTED Phosphorus Level (06/06/2023) ???Phosphorus - 2.1 mg/dL Serum Quantitative (06/04/2023) ? ?Blood - <1 mIU/mL Test Urine (06/04/2023) ???Urine, - NEGATIVE Urinalysis w/hold for Urine Culture (06/04/2023) ???Appear/Color, Urine - COLORLESS???Clarity - CLEAR???Specific [place], Urine - 1.015???pH, Urine - 6.0???Albumin, Urine - NEGATIVE???Glucose, Urine - NEGATIVE???Ketones, Urine - NEGATIVE???Bilirubin, Urine - NEGATIVE???Hemoglobin, Urine - NEGATIVE???Nitrite, Urine - NEGATIVE???Leukocyte, Urine - N EGATIVE???Urobilinogen - NORMAL???Hold Urine Culture - Testing available [...] Belongings I fully understand and agree that [facility] accepts no responsibility for all my [...] ?? Review of Valuable and Belonging List: Other: ICU Nurses station Date for Pt to Sign Valuables/Belongings: 06/05/23 02:32:00 ?? Other Discharge Information ? Pulmonary Rehab Status?? Pulmonary Rehab Discharge Status?? Respiratory Rate: 20 br/min ? Common Emergency Awareness Tips IS [...] are strongly encouraged to quit. Please call [facility] Link at [phone] or [phone] ([phone]) or log in to [email or web address] for referrals to smoking cessation programs. ?? 988 Suicide & Crisis Lifeline is available 04/09 if you or someone you know needs to find a reason to keep living. By calling 668 you'll be connected to a skilled, trained counselor at a crisis center in your area. INPATIENT DISCHARGE INSTRUCTIONS SIGNATURE PAGE JORGE MORA Location:[facility] Registration Date and Time:06/04/2023 21:53 EDT Primary Care Physician: Nikki Hairston NP, Attending Physician: Andre ESTES, Patti Grimes, I JORGE MORA, have received the above patient education materials/instructions and have verbalizedunderstanding. If ambulance or transport services are being used I further acknowledge being given a choice of service. ?? If you need to contact me, please call me at this number: . Patient/Planning Specialist Name: Patient/Planning Specialist Signature: Relationship to Patient: Witness Name/Signature: Date: * Event Display: Provider Clarification Note Please click on pdf link to open report * Event Display: Lab Data & Pts Medical History Authored Date: Admission evaluation note * Boogie ESTES, Magdi Rogers: PERFORM, MODIFY, MODIFY, MODIFY, MODIFY, MODIFY, MODIFY, MODIFY, MODIFY, MODIFY, MODIFY, MODIFY, MODIFY, MODIFY, MODIFY Event Display: Admission Note Authored Date: Patient: ??JORGE MORA ? Age:??22 Years?Sex:??Female?:??2000?? Chief Complaint/Reason for Consultation uch fome History of Present Illness 22-year-old transgender patient with a past medical history significant for borderline personality disorder, depression, obesity, who presented to the ED with intentional drug overdose ?Pre-Hospital course: ?-Patient reported intentional intake of about 100 tablets of 650 mg Tylenol about 2 hours prior to presenting to the ED, patient also reported that she took these medications intentionally tohurt herself so patient presented to the ED for evaluation ?-Patient denied fever/chills, chest pain, palpitations, presyncope/syncope, nausea/vomiting, diarrhea/constipation, urinary symptoms, weight gain, lower extremity edema, or motor/sensory deficits. ?ED course: ?On presentation to the ED patient was tachycardic, other vitals are stable Labs are significant for normal CBC, ALT 38, Tylenol level 249 In the ED patient received??acetylcysteine, charcoal, IV fluids Patient be admitted for further management of drug overdose with Tylenol, Review of Systems A full review of systems was completed and is otherwise negative except as mentioned in history of present illness.?? Objective Vital Signs?? Temperature: 98.6 DegF (06/04/23 19:45:00) Temperature Route: Oral (06/04/23 19:45:00) Pulse Rate:??120 bpm??High (06/04/23 19:45:00) Respiratory Rate: 27 br/min (06/04/23 19:45:00) Systolic Blood Pressure: 118 mm Hg (06/04/23 08:11:00) Diastolic Blood Pressure: 69 mm Hg (06/04/23 08:11:00) Blood pressure sites: Arm, right (06/04/23 08:11:00) Mean Arterial Pressure: 76 mm Hg (06/04/23 07:21:00) Pulse Pressure: 49 mm Hg (06/04/23 08:11:00) Oxygen Saturation: 98 % (06/04/23 19:45:00) Mode of Delivery (Oxygen): Room air (06/04/23 19:45:00) Early Warning Score: 0 (06/04/23 13:43:17) ? Physical Exam ?General: AAOx3, in no acute distress ?Neuro: CN 2-12 grossly intact, motor strength 5/5 in all extremities, no sensory deficits?HEENT: EOMI, PERRL, mouth/nose/pharynx WNL ?Neck: Supple, no LAD, JVD not congested ?Heart: Normal S1/S2, RRR, no MRGs ?Lungs: CTA b/l, no rales, rhonchi, wheezing or rubs ?Abdomen: +BS, soft, non-tender.non Distended. ?Extremities: Warm, no edema b/l. ?Musculoskeletal:??Joints (no swelling, denies tenderness). ? Assessment/Plan 22-year-old transgender patient with a past medical history significant for borderline personality disorder, depression, obesity, who presented to the ED with intentional drug overdose ? Tylenol ??overdose (T50.901A):??- -Patient reported intentional intake of about 100 tablets of 650 mg Tylenol about 2 hours prior to presenting to the ED, patient also reported that she took these medications intentionally to hurt herself so patient presented to the ED for evaluation ?On presentation to the ED patient was tachycardic, other vitals are stable Labs are significant for normal CBC, ALT 38, Tylenol level 249 In the ED patient received??acetylcysteine, charcoal, IV fluids ?? plan: Poison control following the patient??and recommended N-acetylcysteine??and following Tylenol level?? labs every 6 hours (BMP, lactate, and liver enzymes) Fomepizole one time dose as per poison control satellite project site monitor IV fluids Follow-up LFTs tomorrow morning Patient will need to follow-up with psychiatry for further evaluation in the am Suicide precautions We will hold home meds for tonight??and continuously??monitoring??patient for now ?QM: ?Code status:full ?DVT prophylaxis:Pneumoboots?Diet:regular ? Histories Allergies Allergies ?(Active and Proposed [...] Hypertension Sister: Depression ? Medications Home Medications Acetaminophen (Tylenol 325 [...] oral tablet)?50?Milligram?By Mouth?Daily at bedtime?as needed?Sleep ? Results Recent Labs BLOOD COUNT & DIFF WBC 8.3 k/mm3 ()?? 06/04/2023 20:39 RBC 4.61 m/mm3 ()?? 06/04/2023 20:39 Hgb 13.2 Gm/dL ()?? 06/04/2023 20:39 Hct 40.3 % ()?? 06/04/2023 20:39 MCV 87.4 femtoliters ()?? 06/04/2023 20:39 MCH 28.6 pg ()?? 06/04/2023 20:39 MCHC 32.8 g/dL (Low)?? 06/04/2023 20:39 Platelet Count 180 k/mm3 ()?? 06/04/2023 20:39 RDW-SD 40.3 femtoliters ()?? 06/04/2023 20:39 MPV 12.1 femtoliters ()?? 06/04/2023 20:39 Nucleated RBC (Automated) 0.0 #/100 WBC'S ()?? 06/04/2023 20:39 Abs. NRBC 0.0 k/mm3 ()?? 06/04/2023 20:39 Abs. Neut 4.7 k/mm3 ()?? 06/04/2023 20:39 Abs. Lymph 2.3 k/mm3 ()?? 06/04/2023 20:39 Abs. Bannock 1.0 k/mm3 (High)?? 06/04/2023 20:39 Abs. Eo 0.2 k/mm3 ()?? 06/04/2023 20:39 Abs. Baso 0.1 k/mm3 ()?? 06/04/2023 20:39 Neut % 56.9 % ()?? 06/04/2023 20:39 Lymph % 27.3 % ()?? 06/04/2023 20:39 Bannock % 12.3 % (High)?? 06/04/2023 20:39 Eos % 2.2 % ()?? 06/04/2023 20:39 Baso % 0.7 % ()?? 06/04/2023 20:39 Imm Gran 0.6 % ()?? 06/04/2023 20:39 Abs. Imm Gran 0.1 k/mm3 ()?? 06/04/2023 20:39 ?? CHEM GENERAL Sodium 139 mmol/L ()?? 06/04/2023 20:39 Potassium 4.1 mmol/L ()?? 06/04/2023 20:39 Chloride 109 mmol/L (High)?? 06/04/2023 20:39 Bicarbonate Level 21 mmol/L (Low)?? 06/04/2023 20:39 Anion Gap 9 ()?? 06/04/2023 20:39 Glucose Level 110 mg/dL (High)?? 06/04/2023 20:39 BUN 13 mg/dL ()?? 06/04/2023 20:39 Creatinine-Blood 0.7 mg/dL ()?? 06/04/2023 20:39 Estimated GFR Creatinine 121 ML/MIN/1.73 M2 ()?? 06/04/2023 20:39 Calcium 8.8 mg/dL ()?? 06/04/2023 20:39 Magnesium 1.7 mg/dL ()?? 06/04/2023 20:39 Protein, Total 6.5 Gm/dL ()?? 06/04/2023 20:39 Albumin 3.8 Gm/dL ()?? 06/04/2023 20:39 AG Ratio 1.4 ()?? 06/04/2023 20:39 Alkaline Phosphatase 74 units/L ()?? 06/04/2023 20:39 Lipase 59 units/L ()?? 06/04/2023 20:39 AST (SGOT) 30 units/L ()?? 06/04/2023 20:39 ALT (SGPT) 38 units/L (High)?? 06/04/2023 20:39 Bilirubin, Total 0.2 mg/dL ()?? 06/04/2023 20:39 Lactate 1.4 mmol/L ()?? 06/04/2023 20:39 ?? COAG INR 1.0 ()?? 06/04/2023 20:39 Protime (PT) 10.2 seconds ()?? 06/04/2023 20:39 ?? ENDOCRINE/TUMOR MARKER Blood <1 mIU/mL ()?? 06/04/2023 20:39 ?? TOXICOLOGY/TDM Ethanol, Serum or Plasma NONE DETECTED mg/dL (N)?? 06/04/2023 20:39 Salicylate Level <0.3 mg/dL (Low)?? 06/04/2023 20:39 Barbiturate Screen, Urine NONE DETECTED ()?? 06/04/2023 20:14 Cannabinoid Screen, Urine NONE DETECTED ()?? 06/04/2023 20:14 Cocaine Metabolite Screen, Urine NONE DETECTED ()?? 06/04/2023 20:14 Benzodiazepine Screen, Urine NONE DETECTED ()?? 06/04/2023 20:14 Amphetamine Screen, Urine NONE DETECTED ()?? 06/04/2023 20:14 Opiate Screen, Urine NONE DETECTED ()?? 06/04/2023 20:14 Acetaminophen Level 249 mg/L (Critical)?? 06/04/2023 20:39 ?? UA/URINALYSIS Appear/Color, Urine COLORLESS ()?? 06/04/2023 20:14 Clarity CLEAR (N)?? 06/04/2023 20:14 Specific [place], Urine 1.015 ()?? 06/04/2023 20:14 pH, Urine 6.0 ()?? 06/04/2023 20:14 Albumin, Urine NEGATIVE (N)?? 06/04/2023 20:14 Glucose, Urine NEGATIVE (N)?? 06/04/2023 20:14 Ketones, Urine NEGATIVE (N)?? 06/04/2023 20:14 Bilirubin, Urine NEGATIVE (N)?? 06/04/2023 20:14 Hemoglobin, Urine NEGATIVE (N)?? 06/04/2023 20:14 Nitrite, Urine NEGATIVE (N)?? 06/04/2023 20:14 Leukocyte, Urine NEGATIVE (N)?? 06/04/2023 20:14 Urobilinogen NORMAL mg/dL (N)?? 06/04/2023 20:14 Hold Urine Culture Testing available 48 hours from time of collection. ()?? 06/04/2023 20:14 ?? URINE OTHER Urine, NEGATIVE (N)?? 06/04/2023 20:14 Est Creatinine Clearance 116.65 mL/min ()?? 06/04/2023 21:12 ? EKG study * Event Display: EKG Authored Date: * Event Display: ECG 12-Lead Authored Date: Please click on pdf link to open report * Event Display: ECG 12-Lead Authored Date: Ventricular Rate: 99 BPM Atrial Rate: 99 BPM P-R Interval: 162 ms QRS Duration: 84 ms Q-T Interval: 342 ms QTC Calculation(Bazett): 438 ms P Harrah: 52 degrees R Harrah: 56 degrees T Harrah: 32 degrees Normal sinus rhythm Normal ECG When compared with ECG of 01-JUN-2023 05:40, No significant change was found Confirmed by SHANKAR MURCIA ([id number]) on 06/05/2023 9:49:00 AM [place]: SHANKAR MURCIA [facility] Progress note * Cindy Soliman RN: MODIFY, MODIFY, SIGN, VERIFY, SIGN, MODIFY, PERFORM Event Display: [facility] Authored Date: Patient: JORGE MORA Age: 22 years Sex: Female : 2000 Associated Diagnoses: None Author: Cindy Soliman RN Findings Problem Related to Alteration in Integumentary : Alteration in Integumentary/new 06/07/2023 9:00 EDT Alteration in Integumentary Related to Mechanical/Surgical trauma Goals & Outcomes, Integumentary Pt will maintain adequate fluid & nutritional balance, Wound will progress towards healing Interventions, Integumentary Cleanse all wounds with Normal Saline, Keep linen clean, dry and wrinkle free, Keep skin clean & dry, Maintain sterile technique with dressing changes, Minimize friction, shear and moisture, Monitor reddened areas for continued or increasing reddness, Record extent of impaired skin integrity, Reposition pt off reddened areas, Use barrier cream/ointment if pt's skin is frequently moist, Use pH balanced no rinse cleanser if incontinent Goals/Interventions, Integumentary Yes Integumentary, Problem Start 06/04/2023 9:06 Reviewed plan with, Integumentary Patient Patient Progression, Integumentary Plan Initiation . Alteration in Psychosocial : Alteration in Psychosocial Function/new 06/07/2023 9:00 EDT Alteration in Psychosocial Related to Ineffective coping, Suicidal Goals & Outcomes, Psychosocial Psychosocial support will be provided to Pt/S.O. as needed, Pt will identify stressors leading up to event, Pt will state importance of adhering to medication regime, Pt/caregiver will be offered appropriate resources & support, Pt/caregiver will express feelings/needs/fears /concerns, Pt/caregiver will maintain/obtain psychological stability, Pt/caregiver will participate in coping skill counseling, Pt will identify & initiate alternate coping strategies, Pt will identify own maladaptive coping patterns, Pt will be monitored for suicidal ideation, Pt will manage stressors w/out self injury, Patient will complete Saftery Plan Prior to discharge Interventions, Psychosocial Provide a calm, supportive environment, Assess psychosocial needs, Assess readiness to learn needed lifestyle changes, Assess/monitor level of consciousness, Provide chances to express concerns/emotions/expectations, Initiate constant personal lines sales rep while pt is actively suicidal, Assess environment for safety, Assess pt's suicidal ideation, Monitor effectiveness of anti-depressant medication Goals/Interventions, Psychosocial Yes Psychosocial, Problem Start 06/05/2023 3:58 Reviewed Plan with, Psychosocial Patient Patient Progression, Psychosocial Pt progressing according to plan . Alteration in Safety : Alteration in Safety/new 06/07/2023 9:00 EDT Alteration in Safety Related to Toxic Ingestion, Suicidal ideation Goals & Outcomes, Safety Psychosocial support will be provided to Pt/S.O. as needed, Pt/caregiver will state understanding of plan/goals of care, Pt will remain safe & injury free, Pt/caregiver will be offered appropriate resources & support, Pt/caregiver will verbalize understanding ofthe D/C plan Interventions, Safety Provide teaching as needed, Keep equipment for maintaining patent airway at bedside, Maintain suicide precautions until cleared by psychiatry Goals/Interventions, Safety Yes Safety, Problem Start 06/06/2023 9:18 Reviewed plan with, Safety Patient Patient Progression, Safety Pt progressing according to plan . Nursing Data Integumentary Data. : Integumentary Data. 06/07/2023 8:58 EDT Skin Symptoms Ulcers/lesions Skin Color Flushed Skin Description Dry Skin Temperature Warm Skin Integrity Not intact Skin Turgor Elastic Mucous Membrane Color Venango Mucous Membrane Description Moist Integumentary WNL except Wrist Left Anterior Skin Abnormality Type: Laceration Wound Assessment Activity: Reassessment Wound Dressing: Dry sterile dressing Wound Dressing Assessment: Clean, Dry, Intact Wound Dressing Activity: Intact Wrist Right Anterior Skin Abnormality Type: Laceration Wound Assessment Activity: Reassessment Wound Dressing: Dry sterile dressing, Petroleum gauze, Telfa Wound Dressing Assessment: Clean, Dry, Intact Wound Dressing Activity: Intact Buttock Left Skin Abnormality Type: Rash Wound Assessment Activity: Reassessment Rash Appearance: Papules Wound Dressing: Open to air, Zinc Oxide . Neurological Data. : Neurological Data. 06/07/2023 9:00 EDT Tongue Disposition Midline Neurological Symptoms Weakness or loss of muscle strength Level of Consciousness Full Consciousness Orientated to person, place, time Person, Place, Time, Event Hallucinations None Facial Symmetry Symmetric Characteristics of Speech Clear and normal Swallowing Difficulty None Gag Reflex Assessment Gag reflex present PERRLA Yes Pupil description, left Regular, Round Pupil description, right Regular, Round Pupil reaction, left Brisk Pupil reaction, right Brisk Pupil Size, Left 4 mm Pupil Size, Right 4 mm Strength LUE 5-Active movement against gravity & full resistance Strength RUE 5-Active movement against gravity & full resistance Strength LLE 4-Active movement against gravity & some resistance Strength RLE 4-Active movement against gravity & some resistance Tone All Four Extremities Normal Gait Short steps Tremors None Seizures Seizure precautions per protocol Response Eye Opening Spontaneously Motor Response-Adult Obeys commands Verbal Response-Adult Oriented and converses Welda Coma Score 15 Neuro WNL except Eyes and Movements Conjugate gaze: Move in same direction at same speed Headache None Memory Intact Swallow - Neuro Normal . Evaluation Received report from Angela Lindquist RN. Patient is A&O x 4, PERRL, 4mm, able to make needs known. Neuros grossly intact. Patient states they are feeling more depressed. Patient has an intent and plan to harm themself if sent home. They state not having suicidal intentions while hospitalized.. Constant Orchestra Director at bedside. Safety maintained. Social Work following with patient and touching base withCSO. Cooperative with care despite depressed mood and flat affect. Vitals stable HR 70's-80's, no longer requiring telemetry. Afebrile. +pulses trace lower edema noted. Lungs clear. O2 sat >95%, no cough or dyspnea noted. Dressings to bilateral wrists dry and intact. Rash to left hip and buttock improving. Venango in color. Patient states it is less itchy. Appetite moderate, tolerating PO. Mild nausea reported with oral electrolyte replacement. +bowel sounds. Patient ambulating using cane to bathroom. Steady gait noted. See Ivlicow for full nursing assessment. Call wilburn in reach. Bed alarm set. Patient to be transfered to [facility]. Report given to SCOTT العراقي. . * Cindy Soliman RN: PERFORM Event Display: Progress Note Hospital Authored Date: [id number] Patient left floor with [facility] ambulance staff at 1820. Alert, oriented x4. Looking forward to treatment at . Update given to SCOTT العراقي. * Araceli Lindquist RN: PERFORM, SIGN, VERIFY, SIGN, MODIFY Event Display: Progress Note Hospital Authored Date: [id number] Patient: JORGE MORA Age: 22 years Sex: Female : 2000 Associated Diagnoses: None Author: Araceli Lindquist RN Findings Problem Related to Alteration in Psychosocial : Alteration in Psychosocial Function/new 06/06/2023 21:00 EDT Alteration in Psychosocial Related to Ineffective coping, Suicidal Goals & Outcomes, Psychosocial Psychosocial support will be provided to Pt/S.O. as needed, Pt will identify stressors leading up to event, Pt will state importance of adhering to medication regime, Pt/caregiver will be offered appropriate resources & support, Pt/caregiver will express feelings/needs/fears /concerns, Pt/caregiver will maintain/obtain psychological stability, Pt/caregiver will participate in coping skill counseling, Pt will identify & initiate alternate coping strategies, Pt will identify own maladaptive coping patterns, Pt will be monitored for suicidal ideation, Pt will manage stressors w/out self injury, Patient will complete Saftery Plan Prior to discharge Interventions, Psychosocial Assess psychosocial needs, Assess/monitor level of consciousness, Collaborate with provider for psychiatric consult, Evaluate resources & support system available to pt, Offer support; discuss coping strategies, Provide a calm, supportive environment, Provide chancesto express concerns/emotions/expectations, Provide info on community resources for education, support, Provide information about illness and recovery, Provide verbal limits if pt's behavior escalates, Do not provide more information than pt can handle, Assess available/useful past/present coping mechanisms, Assess coping skills & provide teaching as needed, Assess stressors & available/useful coping mechanisms, Avoid false reassurances, Convey feelings of acceptance & understanding,Instruct in need for adequate rest & balanced diet, Provide info pt wants/needs, Initiate constant personal lines sales rep while pt is actively suicidal, Assess environment for safety, Assess pt's suicidal ideation, Monitor effectiveness of anti-depressant medication Goals/Interventions, Psychosocial Yes Psychosocial, Problem Start 06/05/2023 3:58 Reviewed Plan with, Psychosocial Patient Patient Progression, Psychosocial Pt progressing according to plan . Alteration in Safety : Alteration in Safety/new 06/06/2023 21:00 EDT Alteration in Safety Related to Toxic Ingestion, Suicidal ideation Goals & Outcomes, Safety Psychosocial support will be provided to Pt/S.O. as needed, Pt/caregiver will state understanding of plan/goals of care, Pt will remain safe & injury free, Pt/caregiver will be offered appropriate resources & support, Pt/caregiver will verbalize understanding ofthe D/C plan Interventions, Safety Provide teaching as needed, Instruct pt on maintaining a safe environment, One on one observation, Talk to patient regarding concerns, Assess family dynamics & refer to counseling as needed, Initiate antidote protocol per Poison Control guidelines, Maintain suicide precautions until cleared by psychiatry Goals/Interventions, Safety Yes Safety, Problem Start 06/06/2023 9:18 Reviewed plan with, Safety Patient Patient Progression, Safety Pt progressing according to plan . Evaluation Aslynn reports physically feeling better since home meds have been restarted. PM meds given as ordered. Did ask for Trazodone for sleep, which Carin Medina NP ordered. Dose given with good effect. Appropriate and cooperative with care. Chatty with 1:1 and this functional tester typewriters, joking and smiling at times. States mentally they have been up and down yesterday. No verbalizations of wanting to self-harm so far tonight. Suicide precautions in place. Safety maintained. Falls risk precautions in place; has been OOB to the commode and did well with their transfer by use of cane. Voided x 1; desmopressin given with PM meds. Nausea has mostly resolved. Did have slight temporary queasiness s/p kphos drink, but saltine crackers helped alleviate the issue. See interactive flowsheets for their full physical assessment. Medically downgraded; still awaiting mental health facility bed availability. . * Araceli Lindquist RN: PERFORM Event Display: Progress Note Hospital Authored Date: [id number] Awake this AM at approx 05:30. Dressing to right arm loose, so lacerations cleansed with NS and newdressing applied. Neal reports repeatedly seeing a commercial on TV that is for facial razors andblades, and they report this to be very triggering and makes them want to cut themself. They stated that they will cut themselves again in the future, and stated that they will overdose again and try to kill themself. Does admit to feeling suicidal and having intrusive thoughts this morning. 1:1 remains at the bedside with suicide precautions in place. Therapeutic listening provided to allow Neal to voice their thoughts. Plan made to change the TV channel to prevent repeatedly seeing the triggering commercial, and prn Haldol given in attempt to help with anxiety and intrusive thoughts. * Ad Oliva MD: PERFORM Event Display: Progress Note Hospital Authored Date: [id number] Patient: ??JORGE MORA ? Age:??22 Years?Sex:??Female?:??2000?? Subjective Patient is identifying with the name Neal with they/them pronouns. ?? Neal presented with mild transaminitis and acetaminophen level of 249 increasing to 273 after reported toxic ingestion of acetaminophen. They had only just been discharged from this hospital without SI and it was not their intent to kill themselves when they left nor when they took Tylenol. Poison control was contacted and recommended interval labs with acetylcysteine infusion, charcoal and IV fluids. Labs were followed until acetaminophen was undetectable. Now cleared by poison control, awaiting bed search findings.? Review of Systems As reviewed above.?? Objective Vital Signs?? Temperature: 98.3 DegF (06/06/23 08:00:00) Temperature Route: Oral (06/06/23 08:00:00) Pulse Rate: 77 bpm (06/06/23 08:00:00) Heart Rate Monitored: 88 bpm (06/05/23 19:00:00) Respiratory Rate: 16 br/min (06/06/23 08:52:00) Systolic Blood Pressure: 108 mm Hg (06/06/23 08:00:00) Diastolic Blood Pressure: 72 mm Hg (06/06/23 08:00:00) Blood pressure sites: Arm, left (06/05/23 19:00:00) Pulse Pressure: 36 mm Hg (06/06/23 08:00:00) Oxygen Saturation: 95 % (06/06/23 08:00:00) Mode of Delivery (Oxygen): Room air (06/06/23 08:00:00) Early Warning Score: 2 (06/06/23 10:42:37) ? Intake/Output? 06/03 21:53 06/05 07:00 06/04 07:00 06/03 07:00 06/02 07:00 ?? 06/05 11:56 06/05 11:56 06/05 06:59 06/04 06:59 06/03 06:59 Intake ?915.3 ?0 ?400 ?515.3 ?0 Output ?0 ?0 ?0 ?0 ?0 Net Total ?915.3 ?0 ?400 ?515.3 ?0 ? Urine Count ? 12 ?1 ?9 ?2 ?0 Emesis Count ?4 ?0 ?0 ?4 ?0 ? Physical Exam Constitutional: Alert, in no distress. Mental Status: Oriented to person, place and time. Respiratory: Clear to auscultation. No wheezing, rales or rhonchi. Cardiovascular: S1 S2 regular. No murmurs, rubs or gallops. Gastrointestinal: Abdomen soft, non-tender, non-distended. Normal bowel sounds. Genitourinary: No costovertebral angle tenderness Neurologic: Moves all extremities spontaneously. Skin: No rashes or lesions. No petechiae or purpura. No edema Musculoskeletal: No gross deformities.? Assessment/Plan Assessment:??22-year-old transgender patient with a past medical history significant for borderlinepersonality disorder, depression, obesity, who presented to the ED with intentional drug overdose with acetaminophen. ?? Drug overdose (T50.901A):??Vitals stable in ED and since admission Labs are significant for normal CBC, ALT 38, Tylenol level 249->273 initially now non-detectable. In the ED patient received acetylcysteine, charcoal, IV fluids. Poison control has been contacted, followed labs and treatment plan and has now signed off on patient. They are medically cleared for discharge. ?? -Patient??is clinically very well??and medically stable for discharge. -Has some somatic weakness and intolerance to ambulation. Will have PT evaluate, but patient is seen ambulating to toilet. There is not an identified medical cause for weakness. -Tolerating oral intake -Patient is on a one-to-one for suicide precaution -Awaiting CALENDER LET OFF OPERATOR bed search results. ?? Borderline personality disorder (F60.3):??Neal is able to demonstrate insight regarding their pattern of seeking medical care after attempts to self harm and their diagnosis of borderline personality. They are embarrassed to discuss that there are elements of getting medical care that are appealing and that this is a component of why they will seek care. They also acknowledge the cycle of self h arm and receipt of care is not one they would ultimately like to preserve. ?? -It is my opinion that pursuing this conversation may help Aslynn begin to take responsibility for interrupting this cycle if the ideas noted above can be reinforced - that Neal ultimately does notwant to continue the cycle of readmission and care-seeking but there are parts that are enjoyable and they will not be willing to engage in interrupting those behaviors until they decide they no longer want to seek medical care. -Once Neal is willing to engage in care, they will be well served by skill- building psychotherapysuch as DBT. The vast majority of BPD patients do achieve remission over time, but remain at significantly elevated risk of suicide as a result of frequent health seeking behaviors. Neal has several additional risk factors that elevate their risk. They deny SI at this time. -Healthcare members should encourage Aslynn to take responsibility for their own care in all capacities and recognize their ability to control their own behavior and capabilities. ?? * Andre ESTES, Patti Grimes: PERFORM Event Display: Progress Note Hospital Authored Date: Patient seen and examined, medical records reviewed.?? Case discussed with?Hazel??family support worker PGY 2. Patient's physical exam: General:??Alert, in no acute cardiopulmonary distress. Mental [...] II-XII grossly intact. No focal neurological deficits. Moves all extremities spontaneously. Sensation intact bilaterally. Skin:??No rashes or lesions. No petechiae or purpura. No edema. Musculoskeletal:??No cyanosis or clubbing. No gross deformities. Normal range of motion. ?? 22-year-old transgender patient with a past medical history significant for borderline personality disorder, depression, obesity, who presented to the ED with intentional drug overdose with acetaminophen, with initial Tylenol level of??273, now not detectable. ??Received acetylcysteine, charcoal and IV fluids??initially,??has been stable without??significant alteration in LFTs.?? Can come out of ICU given clinical and hemodynamically stability, transfer to medical floor.?? CALENDER LET OFF OPERATOR evaluated patientrecommending transfer to mental health unit, awaiting bed.?? Rest of diagnoses and treatment as described by Dr.??Hazel??family support worker PGY 2. I spent a total of??50?? minutes today reviewing the chart/medical records, speaking with the patient, ??formulating and discussing??the treatment plan, and documenting the findings and encounter.? Patient Care team information Care Team Personnel Name: Garcia Baez RN Position: [facility] RN Member Role: Primary Care Nurse Name: Diamond Mancini RN Position: [facility] RN Member Role: Primary Care Nurse Name: Leah Almonte RN Position: [facility] RN Member Role: Primary Care Nurse Name: Natasha iDckey RN Position: [facility] RN Member Role: Primary Care Nurse Name: Kellee Garvin RN Position: [facility] RN Member Role: Primary Care Nurse Name: Maegan Diaz RN Position: [facility] RN Member Role: Primary Care Nurse Name: Genesis Lea RN Position: [facility] RN Member Role: Primary Care Nurse Name: Nikki Hairston NP Position: [facility] PCO Associate Professional Member Role: PCP Address: Address: [address] [place] [address]- Name: Alejandra Gilbert RN Position: [facility] RN Member Role: Primary Care Nurse Name: Zara Colon RN Position: [facility] RN Supv Member Role: Primary Care Nurse Name: Stefani Pinto RN Position: [facility] RN Member Role: Primary Care Nurse Name: Araceli Quevedo RN Position: [facility] RN Member Role: Primary Care Nurse Name: Fatoumata Lyod RN Position: [facility] RN Member Role: Primary Care Nurse Name: Melissa Stapleton RN Position: [facility] RN Member Role: Primary Care Nurse Name: Ligia Stapleton RN Position: [facility] RN Member Role: Primary Care Nurse Name: Melissa Davison RN Position: [facility] RN Member Role: Primary Care Nurse Name: Trinidad Ordonez RN Position: [facility] RN Member Role: Primary Care Nurse Name: Mariaelena Collazo RN Position: [facility] RN Member Role: Primary Care Nurse Name: Beatrice Pisano RN Position: [facility] RN Member Role: Primary Care Nurse Name: Shankar Man Position: [facility] RN Member Role: Primary Care Nurse Name: Nikki Croft RN Position: [facility] RN Member Role: Primary Care Nurse Name: Jennifer Almanzar RN Position: [facility] RN Member Role: Primary Care Nurse Name: John Cuellar RN Position: [facility] RN Member Role: Primary Care Nurse Name: Petrona Gayle RN Position: [facility] RN Member Role: Primary Care Nurse Name: Christos Godoy RN Position: [facility] RN Member Role: Primary Care Nurse Care Team Related Persons Name: [employer] Address: home [address] [place] [address] Name: YULIYA MORA Address: home [address] [place] [address] Name: SUNDAY MORA Address: home [address] [place] [address]
--- OUTSIDE RECORDS SUMMARY | 2023-06-27 19:37 | XMS_ITS | Continuity of Care Document ---
Author Organization [facility] Address [address] [place] [id number]- Care Team Providers Care [place] Department Supervisor Name Role Phone Yovanny RILEY, Nikki Primary Care Physician Encounter [facility] Date(s): 06/18/23 - 06/18/[address] [address]- Encounter Diagnosis Back pain(Final) - 06/18/23 Discharge Disposition: A-D/C Home Attending Physician: Nelsy ESTES, Mirna Sharp Admitting Physician: Mirna Whittington MD Referring Physician: Not on Staff, Referring [...] 0 Refills, Maintenance, 04/03/23 8:17:00 EST, Tablet, [facility]-[id number], Partial fill upon patient request if the [...] 0 Refills, Maintenance, 04/03/23 8:17:00 EST, Capsule, [facility]-09529, Partial fill upon patient request if the prescription is for a schedule II opioid drug., 167, cm, 04/02/23 20:16:00 EST,... Start Date: 04/03/23 Status: Ordered haloperidol 5 mg oral tablet 5 mg, By Mouth, Daily, # 30 tablet, Refills 0, Tot. Refills 0, Maintenance, 04/03/23 8:19:00 EST, Route to Pharmacy Electronically, [facility]-[id number], Partial fill upon patient request if the prescription is for a schedule II opioid d... Start Date: 04/03/23 Status: Ordered haloperidol 5 mg oral tablet 5 mg, By Mouth, 2 times a day, PRN, # 60 tablet, Refills 0, Tot. Refills 0, Maintenance, Anxiety, 04/03/23 8:20:00 EST, Route to Pharmacy Electronically, [facility]-09595, Partial fill upon patient request if the [...] Refills, Maintenance, 04/03/23 8:17:00 EST, ER Tablet, [facility]-[id number], Partial fill upon patient request if the [...] 04/03/23 8:18:00 EST, Route to Pharmacy Electronically, [facility]-[id number], Partial fill upon patient request if the prescription is for a schedule... Start Date: 04/03/23 Status: Ordered topiramate 50 mg oral tablet = 150 mg, By Mouth, Daily at bedtime, # 90 tablet, 0 Refills, Maintenance, 04/03/23 8:18:00 EST, Tablet, [facility]-[id number], Partial fill upon patient request if the [...] Sleep,04/03/23 8:19:00 EST, Route to Pharmacy Electronically, [facility]-[id number], Partialfill upon patient request if the prescription [...] [Reference Range]: 1 2 Height 168 cm (06/18/23 7:30 PM) 168 cm (06/18/23 3:54 PM) Weight 143 kg (06/18/23 7:30 PM) 143 kg (06/18/23 3:54 PM) Oxygen Saturation [94-100 %] 97 % (06/18/23 7:30 PM) 98 % (06/18/23 3:54 PM) Pulse Rate [55-90 bpm] 105 bpm *H* (06/18/23 7:30 PM) 139 bpm *H* (06/18/23 3:54 PM) Body Mass Index [18.5-24.99 kg/m2] 50.67 kg/m2 *>HHI* (06/18/23 7:30 PM) Blood Pressure [90-138/55-84 mm Hg] 141/ 85mm Hg *H* (06/18/23 7:30 PM) 137/94mm Hg (06/18/23 3:54 PM) Respiratory Rate [16-30 br/min] 18 br/mi n (06/18/23 7:30 PM) 19 br/min (06/18/23 3:54 PM) Temperature [96.8-100.4 DegF] 98.6 DegF (06/18/23 3:54 PM) Mode of Delivery (Oxygen) Room air (06/18/23 7:30 PM) Room air (06/18/23 3:54 PM) Blood pressure sites Arm, left (06/18/23 7:30 PM) Temperature Route Temporal (06/18/23 3:54 PM) Dry Weight 143 kg (06/18/23 7:30 PM) 143 kg (06/18/23 3:54 PM) Social History Social History Type Response Smoking Status 10 or more cigarette s (1/2 pack or more)/day in last 30 days entered on: 09/07/18 Sex Patient Care team information Care Team Personnel Name: Garcia Baez RN Position: [facility] RN Member Role: Primary Care Nurse Name: Live RNDiamond Position: [facility] SN RN Member Role: Primary Care Nurse Name: Leah Almonte RN Position: [facility] RN Member Role: Primary Care Nurse Name: Natasha Dickey RN Position: [facility] RN Member Role: Primary Care Nurse Name: Kellee Garvin RN Position: [facility] RN Member Role: Primary Care Nurse Name: Maegan Diaz RN Position: [facility] RN Member Role: Primary Care Nurse Name: Genesis Lea RN Position: [facility] RN Member Role: Primary Care Nurse Name: Nikki Hairston NP Position: [facility] PCO Associate Professional Member Role: PCP Address: Address: [address] [place] [address] Name: Alejandra Gilbert RN Position: [facility] RN Member Role: Primary Care Nurse Name: Zara Colon RN Position: [facility] RN Supv Member Role: Primary Care Nurse Name: Stefani Pinto RN Position: [facility] RN Member Role: Primary Care Nurse Name: Araceli Quevedo RN Position: [facility] RN Member Role: Primary Care Nurse Name: Fatoumata Loyd RN Position: [facility] RN Member Role: Primary Care Nurse Name: Melissa Stapleton RN Position: [facility] RN Member Role: Primary Care Nurse Name: Ligia Stapleton RN Position: [facility] RN Member Role: Primary Care Nurse Name: Melissa Davison RN Position: [facility] RN Member Role: Primary Care Nurse Name: Trinidad Ordonez RN Position: [facility] RN Member Role: Primary Care Nurse Name: Mariaelena Collazo RN Position: [facility] RN Member Role: Primary Care Nurse Name: Beatrice Pisano RN Position: [facility] RN Member Role: Primary Care Nurse Name: Shankar Man Position: [facility] RN Member Role: Primary Care Nurse Name: Nikki Croft RN Position: [facility] RN Member Role: Primary Care Nurse Name: Jennifer Almanzar RN Position: [facility] RN Member Role: Primary Care Nurse Name: John Cuellar RN Position: [facility] RN Member Role: Primary Care Nurse Name: Petrona Gayle RN Position: [facility] RN Member Role: Primary Care Nurse Name: Christos Godoy RN Position: [facility] RN Member Role: Primary Care Nurse Care Team Related Persons Name: [employer] Address: [address] [place] [address] Name: YULIYA MORA Address: home [address] [place] [address] Name: SUNDAY MORA Address: home [address] [place] [address]
--- NOTE | 2023-06-27 20:48 | P.DS_ITS ---
DS: Providers Provider Date of Service: 06/27/23 Date of admission: 06/27/23 19:28 Date of discharge: 06/27/23 Primary care physician: Unknown Physician Consults: 06/27/23 20:23 Consult to Hospitalist Routine Comment: Consulting Provider: Hospitalist Reason For Exam: medical h&p Discharging clinician: Elvie Flanagan DS: Summary Hospital Course Hospital Course: Idris Walter was not assessed face to face, nor through video by this film writer. Pt w as admitted after 5pm to and this film writer was covering provider remotely. Jose Angel is a 23 y/o with hx of BPD, multiple inpatient admission due to suicidality and also due to self harm. Pt was transferred from [facility] after ICU treatment s/s to OD on tylenol. Pt then stepped down to med surg and continue treatment with sitter. Pt continued to expressed SI and urges to self harm. On the day pt was transferred, per nursing, pt went to their room and then came out with socks tied around their neck, some initial resistance to have staff cut it off but later letting them do so. She was seen by hospitalist and transferred to medicine for observation. continue one to one during medical admission. Past Psychiatric History: Inpt: several prior admission. Time Spent with Patient Time attestation: Total time managing care of this patient today ____ minutes. Discharge Plan Discharge Anticipated Discharge Date/Time: 06/27/23 20:44 Patient Disposition: Xfer Acute Care Hospital Discharge Diagnosis: mood disorder Referrals: Physician,Unknown J [Primary Care Provider] - 1 Week Discharge Medications: Discontinued acetaminophen 325 mg tablet 650 mg PO Q6H PRN (Reason: Pain) desmopressin 0.1 mg tablet 0.2 mg PO BEDTIME duloxetine 20 mg capsule,delayed release(DR/EC) 20 mg PO DAILY haloperidol 5 mg tablet 5 mg PO BID PRN (Reason: Anxiety) haloperidol 5 mg tablet 5 mg PO DAILY lidocaine 5 % adhesive patch,medicated 1 patch topical DAILY ibuprofen 400 mg tablet 400 mg PO TID PRN (Reason: Pain) methylphenidate HCl 27 mg Tablet Extended Release 24hr 27 mg PO DAILY trazodone 50 mg tablet 50 mg PO BEDTIME PRN (Reason: Sleep) prazosin 1 mg capsule 1 mg PO BEDTIME topiramate 50 mg tablet 150 mg PO BEDTIME duloxetine 60 mg capsule,delayed release(DR/EC) 60 mg PO DAILY No Action haloperidol 5 mg tablet 5 mg PO DAILY@1400 prazosin 1 mg capsule 1 mg PO BEDTIME desmopressin 0.2 mg tablet 0.2 mg PO BEDTIME ketorolac 10 mg tablet 10 mg PO Q6H PRN (Reason: Pain) trazodone 100 mg tablet 100 mg PO BEDTIME methylphenidate HCl [Concerta] 27 mg tablet extended release 24hr 27 mg PO DAILY topiramate 50 mg tablet 150 mg PO BEDTIME duloxetine 60 mg capsule,delayed release(DR/EC) 60 mg PO DAILY Discharge Orders: Discharge Order (Routine); Ordered 06/27/23 Ordered By: Elvie Flanagan Diet: Regular diet Activity on Discharge: As tolerated Stand Alone Forms: Patient Portal Discharge page Print Language: Divehi Care Plan Goals: transferred to medicine post strangulation Health Concerns: transferred to medicine post strangulation Plan of Treatment: transferred to medicine post strangulation Assessment: pt not assessed face to face Discharge Date/Time: 06/27/23 20:50
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
--- NOTE | 2023-06-28 03:25 | PC.NURSE ---
Patient arrived to unit at 1940. At approx 2004 patient approached nurse's station from room, noted to be gasping, face blue, eyes bulging, with something tied around their neck. applied researcher first to patient to assist them to the floor, began attempting to remove ligature. Rapid Response called, this RN obtained S-cut scissors, arrived to assist patient, ligature extremely difficult to get scissor around. applied researcher able to untie ligature, second ligature noted and cut off by this RN. Removal occurred in less than one minute of initial patient approach, total time of application unknown. Ligatures found to be hospital socks which had been stretched and individually tied. Pt txr to medical unit with rapid response team
== END 2023-06-27 20:50 | disposition short-term general hospital (02) | DRG 885 ==
PROVIDERS: Admitting Provider Psychiatry & Neurology Psychiatry; Visit Provider Psychiatry & Neurology Psychiatry
DX: F39 Unspecified mood [affective] disorder (principal); R45.851 Suicidal ideations; F17.210 Nicotine dependence, cigarettes, uncomplicated; Z91.52 Personal history of nonsuicidal self-harm; Z91.51 Personal history of suicidal behavior; Z71.6 Tobacco abuse counseling; Z79.899 Other long term (current) drug therapy

== ENCOUNTER → 2023-06-27 19:28 | Outpatient (BNV) | payer OTHER, SELFPAY | PROVIDERS: Admitting Provider Psychiatry & Neurology Psychiatry; Visit Provider Social Worker | DX: F60.3 Borderline personality disorder (principal) | CPT/HCPCS: 99223 ==

== ENCOUNTER 2023-06-27 21:23 | Observation (INO) | payer MEDICAID, SELFPAY ==
--- NOTE | ~2023-06-27 | CT_ITS ---
EXAMINATION: CT HEAD WITHOUT CONTRAST CLINICAL INFORMATION: 2 sided tension angulation COMPARISON: CT head from 09/01/2022 TECHNIQUE: Contiguous axial imaging was performed from the skull base to vertex without intravenous administration of contrast. This CT examination was performed using dose optimization techniques as appropriate, variously including the following: *Automated exposure control *Adjustment of mA and/or kV according to patient size (this includes techniques or standardized protocols for targeted exams where dose is matched to indication/reason for exam; i.e. extremities or head) *Use of iterative reconstruction technique DLP: 820 mGy-cm FINDINGS: There is no evidence of acute intracranial hemorrhage or territorial infarction. No abnormal mass effect or midline shift is seen. Cornelius to white matter differentiation is well preserved. No extra-axial fluid collections are identified. The ventricles are normal in size. There is no abnormal attenuation within the brain parenchyma. Soft tissue swelling along the midline frontal scalp without underlying bony defect. The osseous structures and soft tissues are normal. The mastoid air cells and visualized portions of the paranasal sinuses are well aerated. CT/CT cervical spine wo IV con IMPRESSION: 1. No acute intracranial pathology. 2. Soft tissue swelling along the midline frontal scalp without underlying bony defect. EXAMINATION: Noncontrast CT scan of the cervical spine. INDICATION: Suicide attempt COMPARISON: CT cervical spine from 09/01/2022 TECHNIQUE: Helical, multidetector axial images were obtained from the occiput to the upper thorax. Coronal and sagittal reformats of the cervical spine were provided for interpretation. DLP: 499.7 mGy-cm FINDINGS: No acute fractures or dislocations of the cervical spine are seen. Straightening of the normal cervical curvature. Anatomic alignment and positioning of the vertebral bodies and posterior elements is noted. The atlantoaxial joint and craniovertebral articulations are normal without evidence of subluxation. There is no prevertebral soft tissue swelling. The thyroid gland and visualized portions of the lung apices and mediastinum are unremarkable. IMPRESSION: 1. No acute visible fracture or dislocation. 2. Straightening the normal cervical curvature.
[2023-06-27 21:38] LABS: MANUAL DIFF FLAG NO
[2023-06-27 21:40] LABS: Basophils Absolute Auto 0.1 X10*3/uL (0.0-0.2); Basophils Percent Auto 0.7 % (0-2); Eosinophils Absolute Auto 0.1 X10*3/uL (0.0-0.4); Eosinophils Percent Auto 1.4 % (0-4); Hematocrit 40.6 % (37.0-47.0); Hemoglobin 13.4 g/dl (12.0-16.0); Imm Gran Abs Auto 0.02 X10*3/uL (0.00-0.03); Imm Gran Pct Auto 0.3 % (0.0-0.4); Lymphocytes Absolute Auto 2.6 X10*3/uL (1.2-4.9); Lymphocytes Percent Auto 35.2 % (20-40); Mean Corpuscular Hemoglobin 28.8 pg (27.0-33.0); Mean Corpuscular Volume 87.1 fL (80.0-98.0); Monocytes Absolute Auto 0.7 X10*3/uL (0.1-1.2); Monocytes Percent Auto 9.3 % (2-11); Neutrophils Absolute Auto 3.9 x10*3/uL (2.0-8.3); Neutrophils Percent Auto 53.1 % (45-73); Platelet Count 206 X10*3/uL (160-400); Red Blood Count 4.66 X10*6/uL (4.20-5.50); Red Cell Distribution Width 12.9 % (11.0-16.0); White Blood Count 7.2 X10*3/uL (4.8-10.8)
[2023-06-27 22:02] LABS: Alanine Aminotransferase 54 U/L (0-31); Albumin Level 3.9 g/dL (3.5-5.0); Alkaline Phosphatase 64 U/L (39-117); Anion Gap 14 (12-20); Aspartate Amino Transferase 17 U/L (5-31); Bilirubin Total 0.2 mg/dL (0.0-1.0); Blood Urea Nitrogen 16 mg/dL (9-16); Calcium 9.2 mg/dL (8.4-10.2); Carbon Dioxide 22 mmol/L (22-29); Chloride 112 mmol/L (96-108); Cholesterol 184 mg/dL (<200); Estimated Glomerular Filt Rate > 60; Glucose Random 107 mg/dL (60-115); HDL Cholesterol 42 mg/dL (>40); LDL Cholesterol Calculated 98 mg/dL (<100); Magnesium 1.7 mg/dL (1.6-2.6); Potassium 3.9 mmol/L (3.3-5.1); Sodium 144 mmol/L (135-145); Total Protein 6.6 g/dL (6.5-8.0); Triglycerides 224 mg/dL (<150)
[2023-06-27 22:16] LABS: Thyroid Stimulating Hormone 0.88 uIU/mL (0.32-4.0)
[2023-06-27] MEDS: traZODone HCL 50 MG TABLET PO (22:28)
--- NOTE | 2023-06-27 22:54 | PM.IMHP ---
History of Present Illness Date of Service: 06/27/23 Attending physician on admission: Zoya Childs Chief Complaint: Strangulation attempt Patient is a 22-year-old transgender male (prefers to be called Aslynn) with a PMH significant for chronic back and knee pain, borderline personality disorder, and depression who was admitted to [facility] psychiatry unit for increasing depression and suicidal ideation. Patient has had multiple suicide attempts in the past with multiple inpatient psychiatric admissions. Rapid response was called as patient attempted to strangulate herself on the unit. Patient had arrived approximately 30 minutes prior to suicide attempt. Patient apparently was not on a one-to-one and was in their room when they tied 2 of her socks around the neck and proceeded to walk out into the hallway where they were noted to be ?turning blue and having difficulties breathing. Patient was approached by staff who helped lower them to with the floor without a fall or head strike. A cutting tool was procured and socks were cut from around the patient's neck. Patient never lost consciousness and vital signs were stable immediately after incident. Patient was satting at 97% on RA and never noted to be hypoxic. Patient was taken to the ED for CT of head and cervical spine which showed hematoma along the frontal scalp, but were negative for acute intracranial pathology or cervical spine fracture or malalignment. Patient calm and cooperative at time of interview and examination. Has no acute medical complaints at this time. Denies difficulty breathing, shortness of breath. No neck pain or difficulty swallowing. Denies chest pain/pressure, palpitations. No headache. Denies fever, chills, nausea, vomiting, abdominal pain. Patient will be admitted to the medical floor under observation for further evaluation and monitoring of strangulation attempt. Review of Systems Review of Systems: Patient has no acute medical complaints at this time Denies neck pain No difficulty swallowing Denies shortness of breath, difficulty breathing No chest pain/pressure, palpitations No headache [facility] Medical History (Updated 06/27/23 @ 23:18 by KATHRYN Hawkins) Chronic lower back pain Medical clearance for psychiatric admission Social History Household Members: Other Household Members Other:: GLE Housing: Other Housing Other:: GLE Do you presently have visiting nurse or other home services: No Alcohol intake: never Comment: patient on 1:1 obs Patient Tobacco Use Status: Current everyday Tobacco user Tobacco use type: Smokeless Tobacco e-Cigarette/Vaping Use: Currently Using Second Hand Smoke Exposure: No Substance Use Type: Marijuana Advance Directives: No Advance Directives Information Provided: No service: No Sexual orientation: Don't Know Meds Allergies Allergy/AdvReac Type Severity Reaction Status Date / Time chlorpromazine Allergy Rash Verified 06/07/23 20:58 [From Thorazine] oxcarbazepine Allergy Unknown Verified 06/07/23 20:58 [From Trileptal] ziprasidone [From Geodon] Allergy Unknown Verified 06/07/23 20:58 Active Medications: Current Medications Acetaminophen (Acetaminophen 325 Mg Tablet) 650 mg PO Q6H PRN PRN Reason: Fever, mild pain, or headache Benzonatate (Benzonatate 100 Mg Capsule) 100 mg PO TID PRN PRN Reason: Cough Calcium Carbonate (Calcium Carbonate 750 Mg Tab.Chew) 750 mg PO Q6H PRN PRN Reason: Heartburn Enoxaparin Sodium (Enoxaparin Sodium 40 Mg/0.4 Ml Syringe) 40 mg SUBCUT Q24H BETZY Last Admin: 06/27/23 22:30 Dose: Not Given Hydroxyzine HCl (Hydroxyzine Hcl 25 Mg Tablet) 25 mg PO Q6H PRN PRN Reason: Anxiety Magnesium Hydroxide (Milk Of Magnesia 30 Ml Oral.Susp) 30 ml PO DAILY PRN PRN Reason: Constipation Melatonin (Melatonin 3 Mg Tablet) 6 mg PO BEDTIME PRN PRN Reason: Insomnia Ondansetron HCl (Ondansetron Hcl 4 Mg/2 Ml Vial) 4 mg IVPUSH Q8H PRN PRN Reason: Nausea and Vomiting Polyethylene Glycol (Polyethylene Glycol 3350 17 Gm Powd.Pack) 17 gm PO DAILY PRN PRN Reason: Constipation Sodium Chloride (0.9 % Sodium Chloride Flush 3 Ml Syringe) 3 ml IVFLUSH QSHIFT BETZY Trazodone HCl (Trazodone Hcl 50 Mg Tablet) 50 mg PO BEDTIME MRX1 PRN PRN Reason: Insomnia Last Admin: 06/27/23 22:28 Dose: 50 mg Physical Exam Vital Signs and Narrative: Constitutional: Alert, in no acute distress. Mental Status: Oriented to person, place and time. Eyes: Pupils are equal, round, and reactive to light. Ear, Nose, and Throat: Oropharynx clear, mucous membranes moist. Ears and nose without deformities. Trachea midline. Neck: Minor hematoma noted with minimal neck tenderness. No crepitus. ROM of intact. Respiratory: Clear to auscultation bilaterally. No wheezing, rales, or rhonchi. Cardiovascular: S1, S2 regular. No murmurs, rubs, or gallops. Gastrointestinal: Abdomen soft, non-tender, non-distended. Normal bowel sounds. Neurologic: Cranial nerves II-XII are grossly intact bilaterally. No focal neurological deficits. Moves all extremities spontaneously. Skin: Warm, dry. Extremities: No edema. Multiple superficial lacerations in various stages of healing on bilateral forearms. No infectious signs noted. Results Labs 06/27/23 21:30 06/27/23 21:30 Labs: Laboratory Results - last 24 hr 06/27/23 21:30 MCV 87.1 MCH 28.8 MCHC 33.0 RDW 12.9 Plt Count 206 MPV 12.0 Immature Gran % (Auto) 0.3 Neut % (Auto) 53.1 Lymph % (Auto) 35.2 Owen % (Auto) 9.3 Eos % (Auto) 1.4 Baso % (Auto) 0.7 Lymph # (Auto) 2.6 Owen # (Auto) 0.7 Eos # (Auto) 0.1 Baso # (Auto) 0.1 Abs Immat Gran (auto) 0.02 Absolute Neuts (auto) 3.9 Absolute Nucleated RBC 0.000 Nucleated RBC % (auto) 0.0 Anion Gap 14 Estim Creat Clear Calc TNP Estimated GFR > 60 Random Glucose 107 Calcium 9.2 Magnesium 1.7 Total Bilirubin 0.2 AST 17 ALT 54 H Alkaline Phosphatase 64 Total Protein 6.6 Albumin 3.9 Triglycerides 224 H Cholesterol 184 LDL Cholesterol, Calc 98 HDL Cholesterol 42 TSH 0.88 Assessment and Plan (1) Suicide attempt: Status: Acute Plan Patient is a 22-year-old transgender male (prefers to be called Aslynn) with a PMH significant for chronic back and knee pain, borderline personality disorder, and depression who was admitted to M[facility] psychiatry unit for increasing depression and suicidal ideation. Patient has had multiple suicide attempts in the past with multiple inpatient psychiatric admissions. Rapid response was called as patient attempted to strangulate herself on the unit. Patient will be brought to the medical floor under observation for further evaluation and monitoring after strangulation attempt. Self asphyxiation Patient with strangulation attempt on M5 No LOC, fall, head strike, or hypoxia noted CT of head and cervical spine showed hematoma along the frontal scalp but negative acute intracranial pathology or cervical spine fracture or malalignment Mild analgesics for pain management Pulse oximetry q.4 H One-on-one sitter Mood disorder Continue home mood stabilizers Plan as per Psychiatry Chronic back and knee pain Analgesics for pain management Full Code Attending:?Dr. Patterson DVT Prophylaxis: Lovenox Patient will be admitted to the hospital under observation for treatment and further evaluation of strangulation attempt. Quality Stroke Does the patient have a stroke diagnosis?: No VTE Prior VTE?: No VTE Risk Level:: Medical - moderate - high VTE Device Contraindication: Treatment Not Indicated VTE Drug Contraindication: N/A - Med Ordered
[2023-06-28] VITALS: PULSE 84
[2023-06-28 00:12] LABS: Folate 6.3 ng/mL (> or = 4.0); Vitamin B12 609 pg/mL (200-900)
[2023-06-28 01:56] VITALS: BMI 54.0
[2023-06-28 04:00] VITALS: BP 112/61; PULSE 79; RESP 17; TEMP 36.4; O2SAT 94
[2023-06-28 08:00] VITALS: BP 106/59; PULSE 85; RESP 16; TEMP 36.5; O2SAT 97
--- NOTE | 2023-06-28 08:52 | PHA.MEDREC ---
Pharmacy Consult ? Medication Reconciliation Pharmacy has completed the medication reconciliation.Confirmed Med list with Pt. Pt taking desmopressin 0.2 mg at night, topiramate 150 mg at night.
[2023-06-28 12:00] VITALS: BP 121/68; PULSE 99; RESP 16; TEMP 37.1; O2SAT 94
[2023-06-28] MEDS: DULoxetine HCl 60 MG CAPSULE.DR PO (13:29)
[2023-06-28] MEDS: Acetaminophen 325 MG TABLET 650 MG PO (13:34)
[2023-06-28] MEDS: HaloperidoL 5 MG TABLET PO (14:16)
[2023-06-28 15:00] VITALS: BP 120/62; PULSE 85; RESP 16; TEMP 36.6; O2SAT 96
--- NOTE | 2023-06-28 15:05 | MHC.CM.PN ---
Addendum entered by Louise Angela 06/28/23 15:26: PT WILL TRANSFER BACK TO [facility] PENDING BED Original Note: PT, WHO GOES BY [facility], LIVES IN A ALF AND IS INDEPENDENT WITH SELF CARE PT REPORTS HER ALF IS STAFFED 04/09 AND THEY ARE MAP CERTIFIED PTS MEDS ARE BUBBLE PACKED AND PROVIDED BY [facility] PT USES A CANE PRIMARILY, BUT ALSO HAS A WHEEL CHAIR FOR WHEN THEY ARE NOT FEELING WELL PT DENIES HAVING A GUARDIAN OR HCP AND DOES NOT WANT TO COMPLETE ONE PCP: RENEE PERDOMO AT [facility] IN [place] PT REPORTS THE ADDRESS ON FILE IS INCORRECT: THE CORRECT ADDRESS IS [address] [place] [address] OBSERVATION NOTICE DELIVERED DCP: TBD PENDING CRISIS EVAL RETURN TO (PTS EXPECTATION) VS RETURN TO ALF. PT WILL NEED TRANSPORT ARRANGED WHEN READY TO RETURN HOME
--- NOTE | 2023-06-28 15:27 | P.DS_ITS ---
DS: Providers Provider Date of Service: 06/28/23 Date of admission: 06/27/23 21:23 Date of discharge: 06/28/23 Primary care physician: Unknown Physician Consults: 06/27/23 22:37 Consult for Sitter Routine Reason for consultation: Pt with strangulation attempt on M5 Has provider been notified: Yes 06/28/23 07:50 Consult for Sitter Routine Reason for consultation: suiccidal attemp Has provider been notified: No Attending physician on discharge: Samra Davis Discharging clinician: Samra Davis DS: Diagnosis Discharge Diagnosis (1) Suicide attempt: Status: Acute DS: Summary Hospital Course Hospital Course: 22-year-old transgender male (prefers to be called Aslynn) with a PMH significant for chronic back and knee pain, borderline personality disorder, and depression who was admitted to M[facility] psychiatry unit for increasing depression and suicidal ideation. Patient has had multiple suicide attempts in the past with multiple inpatient psychiatric admissions. Rapid response was called as patient attempted to strangulate herself on the unit. Patient had arrived approximately 30 minutes prior to suicide attempt. Patient apparently was not on a one-to-one and was in their room when they tied 2 of her socks around the neck and proceeded to walk out into the hallway where they were noted to be ?turning blue and having difficulties breathing. Patient was approached by staff who helped lower them to with the floor without a fall or head strike. A cutting tool was procured and socks were cut from around the patient's neck. Patient never lost consciousness and vital signs were stable immediately after incident. Patient was satting at 97% on RA and never noted to be hypoxic. Patient was taken to the ED for CT of head and cervical spine which showed hematoma along the frontal scalp, but were negative for acute intracranial pathology or cervical spine fracture or malalignment. Patient calm and cooperative at time of interview and examination. Has no acute medical complaints at this time. Denies difficulty breathing, shortness of breath. No neck pain or difficulty swallowing. Denies chest pain/pressure, palpitations. No headache. Denies fever, chills, nausea, vomiting, abdominal pain. Patient will be admitted to the medical floor under observation for further evaluation and monitoring of strangulation attempt. Hospital course: Patient has above mentioned suicidal attempt, possible Self asphyxiation:No LOC, fall, head strike, or hypoxia noted, CT head and C-spine seems fine. Patient did not endorse any new symptoms during morning rounds. Discussed with the psych (Riri burgess)in detail, patient will be going back to the psychiatric service. Above management discussed in detail with the psych as above. Assessment and plan coordination time spent 35 minute. Time Attestation Total time managing care of this patient today: 35 mintues. Discharge Coordination Time (in mins): 35 min Quality: Safe Use of Opioids Does Pt have an Active Cancer Diagnosis on the Problem List?: No Quality: Stroke Does the patient have a stroke diagnosis?: No Physical Exam Vital Signs: Vital Signs: Last Vital Signs Temp 98.7 F 06/28/23 12:00 Pulse 99 06/28/23 12:00 Resp 16 06/28/23 12:00 BP 121/68 06/28/23 12:00 Pulse Ox 94 06/28/23 12:00 O2 Del Method Room Air 06/28/23 12:00 BMI result Body Mass Index 54.0 Appearance: Alert.? Oriented X3.? not in distress.?. cvs: rrr, [id number] , no murmur res: clear to auscultation ,no rhonchii or wheezing abd: no rebound or guarding ,nt, bs present. ext pulses present , no cyanosis . neuro: axo3 , nonfocal. Skin: Unchanged, Please see H and P note. DS: Data Data Completed and Pending Labs on day of discharge: Laboratory Results - last 24 hr 06/27/23 21:30 WBC 7.2 RBC 4.66 Hgb 13.4 Hct 40.6 MCV 87.1 MCH 28.8 MCHC 33.0 RDW 12.9 Plt Count 206 MPV 12.0 Immature Gran % (Auto) 0.3 Neut % (Auto) 53.1 Lymph % (Auto) 35.2 Douglas % (Auto) 9.3 Eos % (Auto) 1.4 Baso % (Auto) 0.7 Lymph # (Auto) 2.6 Douglas # (Auto) 0.7 Eos # (Auto) 0.1 Baso # (Auto) 0.1 Abs Immat Gran (auto) 0.02 Absolute Neuts (auto) 3.9 Absolute Nucleated RBC 0.000 Nucleated RBC % (auto) 0.0 Sodium 144 Potassium 3.9 Chloride 112 H Carbon Dioxide 22 Anion Gap 14 BUN 16 Creatinine 0.77 Estim Creat Clear Calc TNP Estimated GFR > 60 Random Glucose 107 Calcium 9.2 Magnesium 1.7 Total Bilirubin 0.2 AST 17 ALT 54 H Alkaline Phosphatase 64 Total Protein 6.6 Albumin 3.9 Triglycerides 224 H Cholesterol 184 LDL Cholesterol, Calc 98 HDL Cholesterol 42 Vitamin B12 609 Folate 6.3 TSH 0.88 Imaging Chest x-ray: Radiologist's impression: ITS Impressions Cervical Spine CT 06/28/23 10:38 IMPRESSION: 1. No acute intracranial pathology. 2. Soft tissue swelling along the midline frontal scalp without underlying bony defect. EXAMINATION: Noncontrast CT scan of the cervical spine. INDICATION: Suicide attempt COMPARISON: CT cervical spine from 09/01/2022 TECHNIQUE: Helical, multidetector axial images were obtained from the occiput to the upper thorax. Coronal and sagittal reformats of the cervical spine were provided for interpretation. DLP: 499.7 mGy-cm FINDINGS: No acute fractures or dislocations of the cervical spine are seen. Straightening of the normal cervical curvature. Anatomic alignment and positioning of the vertebral bodies and posterior elements is noted. The atlantoaxial joint and craniovertebral articulations are normal without evidence of subluxation. There is no prevertebral soft tissue swelling. The thyroid gland and visualized portions of the lung apices and mediastinum are unremarkable. IMPRESSION: 1. No acute visible fracture or dislocation. 2. Straightening the normal cervical curvature. Head CT 06/28/23 10:38 IMPRESSION: 1. No acute intracranial pathology. 2. Soft tissue swelling along the midline frontal scalp without underlying bony defect. EXAMINATION: Noncontrast CT scan of the cervical spine. INDICATION: Suicide attempt COMPARISON: CT cervical spine from 09/01/2022 TECHNIQUE: Helical, multidetector axial images were obtained from the occiput to the upper thorax. Coronal and sagittal reformats of the cervical spine were provided for interpretation. DLP: 499.7 mGy-cm FINDINGS: No acute fractures or dislocations of the cervical spine are seen. Straightening of the normal cervical curvature. Anatomic alignment and positioning of the vertebral bodies and posterior elements is noted. The atlantoaxial joint and craniovertebral articulations are normal without evidence of subluxation. There is no prevertebral soft tissue swelling. The thyroid gland and visualized portions of the lung apices and mediastinum are unremarkable. IMPRESSION: 1. No acute visible fracture or dislocation. 2. Straightening the normal cervical curvature. Discharge Plan Discharge Patient Disposition: Xfer Psychiatric Hosp Discharge Diagnosis: suiccidal attemp Referrals: Physician,Unknown J [Primary Care Provider] - 1 Week Discharge Medications: Continued haloperidol 5 mg tablet 5 mg PO DAILY@1400 prazosin 1 mg capsule 1 mg PO BEDTIME desmopressin 0.2 mg tablet 0.2 mg PO BEDTIME ketorolac 10 mg tablet 10 mg PO Q6H PRN (Reason: Pain) trazodone 100 mg tablet 100 mg PO BEDTIME methylphenidate HCl [Concerta] 27 mg tablet extended release 24hr 27 mg PO DAILY topiramate 50 mg tablet 150 mg PO BEDTIME duloxetine 60 mg capsule,delayed release(DR/EC) 60 mg PO DAILY Discharge Orders: Discharge Order (Routine); Ordered 06/28/23 Ordered By: Samra Davis Diet: Advance to usual diet Activity on Discharge: As tolerated Stand Alone Forms: Patient Portal Discharge page Print Language: Singaporean Care Plan Goals: Patient had tried suicidal attempt last night, and subsequently was transferred to the medical floor CT head and neck was done which is negative. Patient is asymptomatic currently. Going back to the psych Health Concerns: As above. Plan of Treatment: As above.
== END 2023-06-28 15:55 ==
PROVIDERS: Admitting Provider Student in an Organized Health Care Education/Training Program; PCP Nurse Practitioner Family; Visit Provider Internal Medicine
DX: T14.91XA Suicide attempt, initial encounter (principal); T71.192A Asphyxiation due to mechanical threat to breathing due to other causes, intentional self-harm, initial encounter; X83.8XXA Intentional self-harm by other specified means, initial encounter; Y93.89 Activity, other specified; Y92.230 Patient room in hospital as the place of occurrence of the external cause; Y99.9 Unspecified external cause status; G89.29 Other chronic pain; M54.9 Dorsalgia, unspecified; M25.569 Pain in unspecified knee; F60.3 Borderline personality disorder; F32.A Depression, unspecified
CPT/HCPCS: 36415; 70450; 72125; 80053; 80061; 82607; 82746; 83735; 84443; 85025; 99222

== ENCOUNTER → 2023-06-27 21:23 | Outpatient (BNV) | payer MEDICAID, SELFPAY | PROVIDERS: Admitting Provider Student in an Organized Health Care Education/Training Program; Visit Provider Internal Medicine | DX: T14.91XA Suicide attempt, initial encounter (principal) | CPT/HCPCS: 99222; 99239 ==

== ENCOUNTER 2023-06-28 15:55 | Inpatient (IN) | payer OTHER, SELFPAY ==
--- NOTE | ~2023-06-28 | CT_ITS ---
EXAMINATION: CT head/brain wo IV con CLINICAL INFORMATION: Reason for Exam H COMPARISON: CT head without contrast 06/28/2023 TECHNIQUE: Contiguous axial imaging was performed from the skull base to vertex without intravenous contrast. Sagittal and coronal reformatted images were obtained. This CT examination was performed using dose optimization techniques as appropriate, variously including the following: * Automated exposure control * Adjustment of mA and/or kV according to patient size (this includes techniques or standardized protocols for targeted exams where dose is matched to indication/reason for exam; i.e. extremities or head) Use of iterative reconstruction technique DLP: 812 mGy-cm FINDINGS: No acute osseous abnormality. Redemonstration of a frontal scalp hematoma. Mild left maxillary and ethmoid sinus mucosal thickening. There is no evidence of acute intracranial hemorrhage or territorial infarction. No abnormal mass effect or midline shift is seen. Cornelius to white matter differentiation is well preserved. No extra-axial fluid collections are identified. No hydrocephalus. No significant volume loss. There is no abnormal attenuation within the brain parenchyma. CT/CT head/brain wo IV con IMPRESSION: No acute intracranial abnormality including hemorrhage, mass effect, hydrocephalus, or acute territorial edematous infarction.
[2023-06-28 16:11] VITALS: BMI 51.9
[2023-06-28 16:13] VITALS: BP 136/85; PULSE 99; RESP 16; TEMP 36.9; O2SAT 97
[2023-06-28] MEDS: hydrOXYzine HCL 25 MG TABLET PO (16:43)
[2023-06-28] MEDS: LORazepam 1 MG TABLET PO (17:02)
[2023-06-28] MEDS: HaloperidoL 5 MG TABLET PO (17:02)
[2023-06-28] MEDS: LORazepam 2 MG/ML VIAL IM (17:49)
[2023-06-28] MEDS: Haloperidol Lactate 5 MG/ML VIAL 10 MG IM (17:49)
[2023-06-28 18:00] VITALS: BP 132/62; PULSE 111; RESP 21; TEMP 36.6; O2SAT 98
[2023-06-28] MEDS: Ibuprofen 400 MG TABLET PO (18:03)
[2023-06-28 18:11] LABS: Creatinine Clr Calc Pharmacy 167.9; Estimated Glomerular Filt Rate > 60
[2023-06-28 18:15] VITALS: BP 124/62; PULSE 111; RESP 20; TEMP 36.5; O2SAT 95
--- NOTE | 2023-06-28 18:31 | PC.NURSE ---
Idris was transferred from the medical floor and arrived on the unit at 1600. She was having a difficult time after the transfer and began to bang her head on the wall. Idris was unable to participate in the admission process and was unable to be verbally deescalated and was continuing to self harm. Staff initiated a code assist and she was placed in a physical hold at 1734 with a release at 1742. Idris was given IM haldol and Ativan at 1749 and was able to calm down. Staff will try to complete admission.
[2023-06-28 18:40] VITALS: BP 121/81; PULSE 105; RESP 20; TEMP 36.5; O2SAT 95
--- NOTE | 2023-06-28 18:40 | HO.PSYEVENT2 ---
Documented by User: Jaye MelchorJasminaSofi, DEBRA 06/28/23 18:46 Event Note Date of Service: 06/28/23 Psych On-Call Event Note: Pt awake, alert, oriented, calm in bed s/p restraint. Her one to one is in place, attentive and communicating with pt. She is communicative. She has good eye contact and is interactive and responds appropriately. There is no confusion noted. She denies head pain, denies neck pain, denies visual changes, denies sx of injury s/p self injurious behavioral episode. Discussed need for further diagnostics. At this time she asks not to have CAT Head, however, is willing to re-visit this assessment on 06/28 and is willing should symptoms be present. She reports she has not eaten yet and is not hungry at this time. Encouraged to attempt to have something to eat/drink when ready. She concurs. Time Spent With Patient Time: Total time managing care of this patient today ____ minutes. Documented by User: Vik Ramsay MD 06/29/23 23:10 Event Note Date of Service: 06/29/23
[2023-06-28 20:00] VITALS: BP 124/78; PULSE 102; RESP 18; TEMP 36.6; O2SAT 102
[2023-06-28] MEDS: Topiramate 25 MG TABLET 150 MG PO (20:28)
[2023-06-28] MEDS: Prazosin HCL 1 MG CAPSULE PO (20:30)
[2023-06-28] MEDS: traZODone HCL 100 MG TABLET PO (20:31)
[2023-06-29] VITALS: BP 120/84; PULSE 98; RESP 17; TEMP 36.7; O2SAT 98
[2023-06-29 08:00] VITALS: BP 119/65; PULSE 141; RESP 18; TEMP 36.6; O2SAT 97
[2023-06-29 08:33] LABS: Estimated Average Glucose 108 mg/dL; Hemoglobin A1c % 5.4 % (<6.0)
[2023-06-29 08:59] LABS: Cholesterol 202 mg/dL (<200); HDL Cholesterol 45 mg/dL (>40); LDL Cholesterol Calculated 112 mg/dL (<100); Magnesium 1.9 mg/dL (1.6-2.6); Triglycerides 229 mg/dL (<150)
[2023-06-29 09:02] LABS: Free T4 (Free Thyroxine) 0.76 ng/dL (0.71-1.85); Thyroid Stimulating Hormone 0.63 uIU/mL (0.32-4.0)
[2023-06-29 09:11] LABS: Folate 9.5 ng/mL (> or = 4.0); Vitamin B12 636 pg/mL (200-900)
[2023-06-29] MEDS: DULoxetine HCl 60 MG CAPSULE.DR PO (09:35)
[2023-06-29] MEDS: HaloperidoL 5 MG TABLET PO ×3 (09:53→18:52)
[2023-06-29] MEDS: Ibuprofen 400 MG TABLET PO (09:53)
[2023-06-29] MEDS: LORazepam 1 MG TABLET PO ×2 (09:53→18:31)
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
[2023-06-29 12:00] VITALS: RESP 18
[2023-06-29 16:00] VITALS: BP 132/78; PULSE 101; RESP 18; O2SAT 98
--- NOTE | 2023-06-29 18:01 | HO.PSYCHPN ---
Subjective Subjective Reason For Visit: PTSD, suicide attempt, MDD, Borderline Personality Diagnostics Vital Signs (24Hr): Vital Signs - 24 hr 06/28/23 18:15 06/28/23 18:40 06/28/23 20:00 Temperature 97.7 F 97.7 F 97.9 F Pulse Rate 111 H 105 H 102 H Respiratory Rate 20 20 18 Blood Pressure 124/62 121/81 124/78 Pulse Oximetry 95 95 102 H Oxygen Delivery Method Room Air Room Air Room Air 06/29/23 00:00 06/29/23 08:00 06/29/23 12:00 Temperature 98.0 F 97.8 F Pulse Rate 98 141 H Respiratory Rate 17 18 18 Blood Pressure 120/84 119/65 Pulse Oximetry 98 97 Oxygen Delivery Method Room Air Room Air 06/29/23 16:00 Temperature Pulse Rate 101 H Respiratory Rate 18 Blood Pressure 132/78 Pulse Oximetry 98 Oxygen Delivery Method Room Air BMI result Body Mass Index 51.9 Labs 06/28/23 16:55 Labs: Laboratory Results - last 48 hr 06/28/23 06/29/23 16:55 07:48 Creatinine 0.76 Estim Creat Clear Calc 167.9 Estimated GFR > 60 Estimat Average Glucose 108 Hemoglobin A1c % 5.4 Magnesium 1.9 Triglycerides 229 H Cholesterol 202 H LDL Cholesterol, Calc 112 H HDL Cholesterol 45 Vitamin B12 636 Folate 9.5 TSH 0.63 Free T4 0.76 Medications Medications Current Medications Al Hydroxide/Mg Hydroxide (Magnesium Hydrox/Alum Hydrox 30 Ml Oral.Susp) 30 ml PO Q6H PRN PRN Reason: Heartburn/Nausea Benzonatate (Benzonatate 100 Mg Capsule) 100 mg PO TID PRN PRN Reason: Cough Calcium Carbonate (Calcium Carbonate 750 Mg Tab.Chew) 750 mg PO Q6H PRN PRN Reason: Heartburn Duloxetine HCl (Duloxetine Hcl 60 Mg Capsule.Dr) 60 mg PO DAILY [facility] Last Admin: 06/29/23 09:35 Dose: 60 mg Haloperidol (Haloperidol 5 Mg Tablet) 5 mg PO DAILY@1400 [facility] Last Admin: 06/29/23 14:40 Dose: 5 mg Haloperidol (Haloperidol 5 Mg Tablet) 5 mg PO TID PRN PRN Reason: anxiety, agitation Last Admin: 06/29/23 09:53 Dose: 5 mg Hydroxyzine HCl (Hydroxyzine Hcl 25 Mg Tablet) 25 mg PO Q6H PRN PRN Reason: Anxiety Last Admin: 06/28/23 16:43 Dose: 25 mg Ibuprofen (Ibuprofen 400 Mg Tablet) 400 mg PO Q6H PRN PRN Reason: Pain, Mild (Pain Scale 1-3) Last Admin: 06/29/23 09:53 Dose: 400 mg Lorazepam (Lorazepam 1 Mg Tablet) 1 mg PO Q4H PRN PRN Reason: give w/Haldol for anx, agit Last Admin: 06/29/23 09:53 Dose: 1 mg Magnesium Hydroxide (Milk Of Magnesia 30 Ml Oral.Susp) 30 ml PO DAILY PRN PRN Reason: Constipation Melatonin (Melatonin 3 Mg Tablet) 6 mg PO BEDTIME PRN PRN Reason: Insomnia Non-Formulary Medication (Methylphenidate Hcl [Concerta]) 27 mg PO DAILY [facility] Ondansetron HCl (Ondansetron Hcl 4 Mg/2 Ml Vial) 4 mg IVPUSH Q8H PRN PRN Reason: Nausea and Vomiting Polyethylene Glycol (Polyethylene Glycol 3350 17 Gm Powd.Pack) 17 gm PO DAILY PRN PRN Reason: Constipation Prazosin HCl (Prazosin Hcl 1 Mg Capsule) 1 mg PO BEDTIME [facility]; Protocol Last Admin: 06/28/23 20:30 Dose: 1 mg Topiramate (Topiramate 25 Mg Tablet) 150 mg PO BEDTIME [facility] Last Admin: 06/28/23 20:28 Dose: 150 mg Tramadol HCl (Tramadol Hcl 50 Mg Tablet) 25 mg PO Q12H PRN PRN Reason: knee pain Trazodone HCl (Trazodone Hcl 100 Mg Tablet) 100 mg PO BEDTIME [facility] Last Admin: 06/28/23 20:31 Dose: 100 mg Allergies Allergies Allergy/AdvReac Type Severity Reaction Status Date / Time chlorpromazine Allergy Rash Verified 06/07/23 20:58 [From Thorazine] oxcarbazepine Allergy Unknown Verified 06/07/23 20:58 [From Trileptal] ziprasidone [From Geodon] Allergy Unknown Verified 06/07/23 20:58 Assessment & Plan Time Spent With Patient Time: Total time managing care of this patient today ____ minutes.
[2023-06-29] MEDS: traMADoL HCL 50 MG TABLET 25 MG PO (18:31)
[2023-06-29] MEDS: hydrOXYzine HCL 25 MG TABLET PO (18:52)
[2023-06-29] MEDS: Melatonin 3 MG TABLET 6 MG PO (18:52)
--- NOTE | 2023-06-29 19:19 | PC.NURSE ---
Idris had 2 episodes of attempting to bang head against wall in her room and scratching wounds on her hands. She was able to be redirected and took PRN medication. Idris reports it's just so hard and I'm always in pain . When asked to clarify she stated she is in physical pain most of the time but it's the emotional pain that makes her want to harm herself. Bacitracin applied to hands. 1:1 sitter at bedside.
[2023-06-29 20:00] VITALS: BP 122/58; PULSE 107; RESP 18; TEMP 36.9; O2SAT 94
[2023-06-29 20:33] VITALS: BP 122/58
[2023-06-29] MEDS: traZODone HCL 100 MG TABLET PO (20:33)
[2023-06-29] MEDS: Topiramate 25 MG TABLET 150 MG PO (20:33)
[2023-06-29] MEDS: Prazosin HCL 1 MG CAPSULE PO (20:33)
[2023-06-30 08:00] VITALS: BP 126/62; PULSE 84; RESP 18; TEMP 36.6; O2SAT 95
[2023-06-30] MEDS: DULoxetine HCl 60 MG CAPSULE.DR PO (08:47)
--- NOTE | 2023-06-30 13:03 | HO.PSYCHPN ---
Subjective Subjective Date of Service: 06/30/23 Reason For Visit: PTSD, suicide attempt, MDD, Borderline Personality Interim History: Met with patient; discussed with team Patient remains on one-to-one; last night banging her head but was able to be redirected; thus far no self-harm today. Patient friendly on approach. Patient asked if tramadol could be increased since unable to cut it in half for 25 mg which has been ordered; telegraphic typewriter mechanic agreed that patient said that increased dose is helping. She asked for her regular clothes; she is not sure where she is in regards to remain safe but wants to work on a behavioral plan, keeping safe allowing her increased privileges. Discussed with nursing who is implementing plan. Mental Status Exam Mental Status Exam Patient Appearance: Fatigued and Appropriate Patient Orientation: Person, Place, Time and Situation Level of Consciousness: Alert Patient Behavior: Cooperative, Anxious, Good Eye Contact and Impulsive Mood Description: Depressed and Anxious Affect Description: Constricted Patient Cognition Impaired: No Ability to Follow Directions: Fair Speech Pattern: Clear and Spontaneous Speech Memory Description: Intact Hallucinations: None Delusions: Not Present Perceptual Disturbances: Depersonalization and Derealization Thought Process: Intact Thought Content: positive for Intact and positive for Suicidal Ideation Judgement and Insight: Impaired Diagnostics Vital Signs (24Hr): Vital Signs - 24 hr 06/29/23 16:00 06/29/23 20:00 06/29/23 20:33 Temperature 98.4 F Pulse Rate 101 H 107 H Respiratory Rate 18 18 Blood Pressure 132/78 122/58 L 122/58 L Pulse Oximetry 98 94 Oxygen Delivery Method Room Air Room Air 06/30/23 08:00 Temperature 97.9 F Pulse Rate 84 Respiratory Rate 18 Blood Pressure 126/62 Pulse Oximetry 95 Oxygen Delivery Method Room Air BMI result Body Mass Index 51.9 Labs 06/28/23 16:55 Labs: Laboratory Results - last 48 hr 06/28/23 06/29/23 16:55 07:48 Creatinine 0.76 Estim Creat Clear Calc 167.9 Estimated GFR > 60 Estimat Average Glucose 108 Hemoglobin A1c % 5.4 Magnesium 1.9 Triglycerides 229 H Cholesterol 202 H LDL Cholesterol, Calc 112 H HDL Cholesterol 45 Vitamin B12 636 Folate 9.5 TSH 0.63 Free T4 0.76 Medications Medications Current Medications Al Hydroxide/Mg Hydroxide (Magnesium Hydrox/Alum Hydrox 30 Ml Oral.Susp) 30 ml PO Q6H PRN PRN Reason: Heartburn/Nausea Benzonatate (Benzonatate 100 Mg Capsule) 100 mg PO TID PRN PRN Reason: Cough Calcium Carbonate (Calcium Carbonate 750 Mg Tab.Chew) 750 mg PO Q6H PRN PRN Reason: Heartburn Duloxetine HCl (Duloxetine Hcl 60 Mg Capsule.Dr) 60 mg PO DAILY [facility] Last Admin: 06/30/23 08:47 Dose: 60 mg Haloperidol (Haloperidol 5 Mg Tablet) 5 mg PO DAILY@1400 [facility] Last Admin: 06/29/23 14:40 Dose: 5 mg Haloperidol (Haloperidol 5 Mg Tablet) 5 mg PO TID PRN PRN Reason: anxiety, agitation Last Admin: 06/29/23 18:52 Dose: 5 mg Hydroxyzine HCl (Hydroxyzine Hcl 25 Mg Tablet) 25 mg PO Q6H PRN PRN Reason: Anxiety Last Admin: 06/29/23 18:52 Dose: 25 mg Ibuprofen (Ibuprofen 400 Mg Tablet) 400 mg PO Q6H PRN PRN Reason: Pain, Mild (Pain Scale 1-3) Last Admin: 06/29/23 09:53 Dose: 400 mg Lorazepam (Lorazepam 1 Mg Tablet) 1 mg PO Q4H PRN PRN Reason: give w/Haldol for anx, agit Last Admin: 06/29/23 18:31 Dose: 1 mg Magnesium Hydroxide (Milk Of Magnesia 30 Ml Oral.Susp) 30 ml PO DAILY PRN PRN Reason: Constipation Melatonin (Melatonin 3 Mg Tablet) 6 mg PO BEDTIME PRN PRN Reason: Insomnia Last Admin: 06/29/23 18:52 Dose: 6 mg Non-Formulary Medication (Methylphenidate Hcl [Concerta]) 27 mg PO DAILY [facility] Ondansetron HCl (Ondansetron Hcl 4 Mg/2 Ml Vial) 4 mg IVPUSH Q8H PRN PRN Reason: Nausea and Vomiting Polyethylene Glycol (Polyethylene Glycol 3350 17 Gm Powd.Pack) 17 gm PO DAILY PRN PRN Reason: Constipation Prazosin HCl (Prazosin Hcl 1 Mg Capsule) 1 mg PO BEDTIME [facility]; Protocol Last Admin: 06/29/23 20:33 Dose: 1 mg Topiramate (Topiramate 25 Mg Tablet) 150 mg PO BEDTIME [facility] Last Admin: 06/29/23 20:33 Dose: 150 mg Tramadol HCl (Tramadol Hcl 50 Mg Tablet) 25 mg PO Q12H PRN PRN Reason: knee pain Last Admin: 06/29/23 18:31 Dose: 25 mg Trazodone HCl (Trazodone Hcl 100 Mg Tablet) 100 mg PO BEDTIME [facility] Last Admin: 06/29/23 20:33 Dose: 100 mg Allergies Allergies Allergy/AdvReac Type Severity Reaction Status Date / Time chlorpromazine Allergy Rash Verified 06/07/23 20:58 [From Thorazine] oxcarbazepine Allergy Unknown Verified 06/07/23 20:58 [From Trileptal] ziprasidone [From Geodon] Allergy Unknown Verified 06/07/23 20:58 Assessment & Plan Assessment & Plan (1) PTSD (post-traumatic stress disorder): Status: Acute Code(s): F43.10 - Post-traumatic stress disorder, unspecified (2) Borderline personality disorder: Status: Acute Code(s): F60.3 - Borderline personality disorder (3) Suicide attempt: Status: Acute Code(s): T14.91XA - Suicide attempt, initial encounter Plan Hospital course: 06/29 Patient remains on one-to-one; last night banging her head but was able to be redirected; thus far no self-harm today. Patient friendly on approach. Patient asked if tramadol could be increased since unable to cut it in half for 25 mg which has been ordered; telegraphic typewriter mechanic agreed that patient said that increased dose is helping. She asked for her regular clothes; she is not sure where she is in regards to remain safe but wants to work on a behavioral plan, keeping safe allowing her increased privileges. Discussed with nursing who is implementing plan. Plan: Pt to continue on 1:[address] Increased to Tramadol 50 mg 12H prn pain, to alternate with ibuprofen PT consult Continue current regime (connected with Dr. Moss) Encourage milieu therapy/groups Patient educated on: diagnosis, medication risk/benefits and therapeutic strategies Informed Consent: understands Reason for continued inpatient stay Substantial Risk for: harm to self and inability to function Time Spent With Patient Time: Total time managing care of this patient today ____ minutes.
[2023-06-30] MEDS: HaloperidoL 5 MG TABLET PO ×2 (13:32→17:42)
[2023-06-30] MEDS: traMADoL HCL 50 MG TABLET PO (13:48)
[2023-06-30] MEDS: LORazepam 1 MG TABLET PO ×2 (17:42→21:46)
[2023-06-30 20:00] VITALS: BP 124/60; RESP 16
[2023-06-30] MEDS: Topiramate 25 MG TABLET 150 MG PO (20:25)
[2023-06-30] MEDS: Melatonin 3 MG TABLET 6 MG PO (20:25)
[2023-06-30 20:26] VITALS: BP 124/60
[2023-06-30] MEDS: Prazosin HCL 1 MG CAPSULE PO (20:26)
[2023-06-30] MEDS: traZODone HCL 100 MG TABLET PO (20:27)
[2023-07-01 08:00] VITALS: RESP 18
[2023-07-01] MEDS: DULoxetine HCl 60 MG CAPSULE.DR PO (08:18)
[2023-07-01] MEDS: traMADoL HCL 50 MG TABLET PO ×2 (08:21→22:41)
--- NOTE | 2023-07-01 10:17 | HO.PSYCHPN ---
Subjective Subjective Date of Service: 07/01/23 Reason For Visit: PTSD, suicide attempt, MDD, Borderline Personality Interim History: Met with patient; discussed with team Patient without any self-harming yesterday and last evening got there casual clothes back. Today keeping to themselves. Director Validation discussed medication management and coping skills. However they said they does not think things are much better and even though they have not banged head they can not stop wanting to; patient got dysregulated and stop talking to junior technical writer started rocking back and forth. Nursing staff started helping patient calmed down and walking with they in the halls however patient approached the zamudio and started banging their head causing small superficial cut; they was redirected with back to room Mental Status Exam Mental Status Exam Patient Appearance: Fatigued and Appropriate Patient Orientation: Person, Place, Time and Situation Level of Consciousness: Alert Patient Behavior: Restless, Anxious, Good Eye Contact and Impulsive Mood Description: Depressed and Anxious Affect Description: Constricted Patient Cognition Impaired: No Ability to Follow Directions: Fair Speech Pattern: Clear and Spontaneous Speech Memory Description: Intact Hallucinations: None Delusions: Not Present Perceptual Disturbances: Depersonalization and Derealization Thought Process: Intact Thought Content: positive for Intact and positive for Suicidal Ideation (Continued self-harming urges) Judgement and Insight: Impaired Diagnostics Vital Signs (24Hr): Vital Signs - 24 hr 06/30/23 20:00 06/30/23 20:26 07/01/23 08:00 Respiratory Rate 16 18 Blood Pressure 124/60 124/60 BMI result Body Mass Index 51.9 Labs 06/28/23 16:55 Medications Medications Current Medications Al Hydroxide/Mg Hydroxide (Magnesium Hydrox/Alum Hydrox 30 Ml Oral.Susp) 30 ml PO Q6H PRN PRN Reason: Heartburn/Nausea Benzonatate (Benzonatate 100 Mg Capsule) 100 mg PO TID PRN PRN Reason: Cough Calcium Carbonate (Calcium Carbonate 750 Mg Tab.Chew) 750 mg PO Q6H PRN PRN Reason: Heartburn Duloxetine HCl (Duloxetine Hcl 60 Mg Capsule.Dr) 60 mg PO DAILY [facility] Last Admin: 07/01/23 08:18 Dose: 60 mg Haloperidol (Haloperidol 5 Mg Tablet) 5 mg PO DAILY@1400 [facility] Last Admin: 06/30/23 13:32 Dose: 5 mg Haloperidol (Haloperidol 5 Mg Tablet) 5 mg PO TID PRN PRN Reason: anxiety, agitation Last Admin: 06/30/23 17:42 Dose: 5 mg Hydroxyzine HCl (Hydroxyzine Hcl 25 Mg Tablet) 25 mg PO Q6H PRN PRN Reason: Anxiety Last Admin: 06/29/23 18:52 Dose: 25 mg Ibuprofen (Ibuprofen 400 Mg Tablet) 400 mg PO Q6H PRN PRN Reason: Pain, Mild (Pain Scale 1-3) Last Admin: 06/29/23 09:53 Dose: 400 mg Lorazepam (Lorazepam 1 Mg Tablet) 1 mg PO Q4H PRN PRN Reason: give w/Haldol for anx, agit Last Admin: 06/30/23 21:46 Dose: 1 mg Magnesium Hydroxide (Milk Of Magnesia 30 Ml Oral.Susp) 30 ml PO DAILY PRN PRN Reason: Constipation Melatonin (Melatonin 3 Mg Tablet) 6 mg PO BEDTIME PRN PRN Reason: Insomnia Last Admin: 06/30/23 20:25 Dose: 6 mg Non-Formulary Medication (Methylphenidate Hcl [Concerta]) 27 mg PO DAILY [facility] Ondansetron HCl (Ondansetron Hcl 4 Mg/2 Ml Vial) 4 mg IVPUSH Q8H PRN PRN Reason: Nausea and Vomiting Polyethylene Glycol (Polyethylene Glycol 3350 17 Gm Powd.Pack) 17 gm PO DAILY PRN PRN Reason: Constipation Prazosin HCl (Prazosin Hcl 1 Mg Capsule) 1 mg PO BEDTIME [facility]; Protocol Last Admin: 06/30/23 20:26 Dose: 1 mg Topiramate (Topiramate 25 Mg Tablet) 150 mg PO BEDTIME [facility] Last Admin: 06/30/23 20:25 Dose: 150 mg Tramadol HCl (Tramadol Hcl 50 Mg Tablet) 50 mg PO Q12H PRN PRN Reason: knee pain Last Admin: 07/01/23 08:21 Dose: 50 mg Trazodone HCl (Trazodone Hcl 100 Mg Tablet) 100 mg PO BEDTIME [facility] Last Admin: 06/30/23 20:27 Dose: 100 mg Allergies Allergies Allergy/AdvReac Type Severity Reaction Status Date / Time chlorpromazine Allergy Rash Verified 06/07/23 20:58 [From Thorazine] oxcarbazepine Allergy Unknown Verified 06/07/23 20:58 [From Trileptal] ziprasidone [From Geodon] Allergy Unknown Verified 06/07/23 20:58 Assessment & Plan Assessment & Plan (1) PTSD (post-traumatic stress disorder): Status: Acute Code(s): F43.10 - Post-traumatic stress disorder, unspecified (2) Borderline personality disorder: Status: Acute Code(s): F60.3 - Borderline personality disorder (3) Suicide attempt: Status: Acute Code(s): T14.91XA - Suicide attempt, initial encounter Plan Hospital course: 06/29 Patient remains on one-to-one; last night banging her head but was able to be redirected; thus far no self-harm today. Patient friendly on approach. Patient asked if tramadol could be increased since unable to cut it in half for 25 mg which has been ordered; junior technical writer agreed that patient said that increased dose is helping. She asked for her regular clothes; she is not sure where she is in regards to remain safe but wants to work on a behavioral plan, keeping safe allowing her increased privileges. Discussed with nursing who is implementing plan. 06/30 Patient without any self-harming yesterday and last evening got there casual clothes back per behavioral plan; today however got dysregulated and banged head; patient hit forehead with minor superficial cut. Plan: Pt to continue on 1:[address] Increased to Tramadol 50 mg 12H prn pain, to alternate with ibuprofen PT consult Continue current regime (connected with Dr. Moss) Encourage milieu therapy/groups Patient educated on: diagnosis, medication risk/benefits and therapeutic strategies Informed Consent: understands Reason for continued inpatient stay Substantial Risk for: inability to function Time Spent With Patient Time: Total time managing care of this patient today ____ minutes.
[2023-07-01] MEDS: HaloperidoL 5 MG TABLET PO ×2 (11:44→13:36)
[2023-07-01] MEDS: LORazepam 1 MG TABLET PO (13:36)
[2023-07-01] MEDS: Ibuprofen 400 MG TABLET PO (18:07)
[2023-07-01 20:04] VITALS: BP 119/59; PULSE 97; RESP 16; TEMP 36; O2SAT 94
[2023-07-01] MEDS: traZODone HCL 100 MG TABLET PO (22:39)
[2023-07-01] MEDS: Prazosin HCL 1 MG CAPSULE PO (22:39)
[2023-07-01] MEDS: Topiramate 25 MG TABLET 150 MG PO (22:39)
[2023-07-01] MEDS: Melatonin 3 MG TABLET 6 MG PO (22:40)
[2023-07-02 08:00] VITALS: BP 127/58; PULSE 107; RESP 18; TEMP 36.3; O2SAT 95
[2023-07-02] MEDS: DULoxetine HCl 60 MG CAPSULE.DR PO (08:17)
[2023-07-02 08:46] VITALS: BP 127/58; PULSE 107; O2SAT 95
[2023-07-02] MEDS: Throat Lozenge, Medicated LOZENGE 1 LOZENGE MUCOUS MEM ×2 (09:28→14:35)
[2023-07-02] MEDS: traMADoL HCL 50 MG TABLET PO (10:41)
[2023-07-02] MEDS: Dextroamphetamine/Amphetamine XR 5 MG CAP.ER.24H 15 MG PO (11:15)
[2023-07-02] MEDS: HaloperidoL 5 MG TABLET PO ×3 (13:29→22:42)
[2023-07-02] MEDS: LORazepam 1 MG TABLET PO (15:42)
[2023-07-02] MEDS: Ibuprofen 400 MG TABLET PO (16:08)
--- NOTE | 2023-07-02 17:17 | P.PNPSI_ITS ---
Subjective Subjective Date of Service: 07/02/23 Reason For Visit: PTSD, suicide attempt, MDD, Borderline Personality Subjective Notes: Conditional Voluntary Healthcare Proxy: No Guardianship: No Medical Problems Affecting Mental Status: No Interim History: Pt/Team report one instance of behavioral dyscontrol over the weekend. Pt discussed a treatment plan. I have a cardiology appt on 07/10. I want to be safe and discharge before that, possibly 07/09. The staff at the house are supportive of me, I just don't relate to them as I should, I need to work on this. Reports sore throat, nasal congestion. Discussed her earning back privileges with her behavioral plan. Review of fibromyalgia literature. Willing to begin Vitamin D, MVI, Mg supplements. Discussion of self care. Medication Compliance: Yes Side effects from medications: No Attending Groups: Intermittent Review of Systems Acute medical concerns: No Medical Review of Systems: unchanged Review of Systems Review of Systems Nasal congestion Sore throat Mental Status Exam Mental Status Exam Patient Appearance: Appropriate Patient Orientation: Person, Place, Time and Situation Level of Consciousness: Alert Patient Behavior: Talkative and Good Eye Contact Mood Description: Depressed Affect Description: Flat Patient Cognition Impaired: No Ability to Follow Directions: Good Speech Pattern: Spontaneous Speech Memory Description: Intact Hallucinations: None Delusions: Not Present Perceptual Disturbances: Depersonalization and Derealization Thought Process: Rumination Thought Content: positive for Circumstantial Depressive Symptoms: Increased Anxiety, Loss of Int. in Activity and Difficulty Concentrating Judgement: Fair Diagnostics Vital Signs (24Hr): Vital Signs - 24 hr 07/01/23 20:04 07/02/23 08:00 07/02/23 08:46 Temperature 96.8 F 97.4 F Pulse Rate 97 107 H 107 H Respiratory Rate 16 18 Blood Pressure 119/59 L 127/58 L 127/58 L Pulse Oximetry 94 95 95 Oxygen Delivery Method Room Air Room Air BMI result Body Mass Index 51.9 Labs 06/28/23 16:55 Medications Medications Current Medications Al Hydroxide/Mg Hydroxide (Magnesium Hydrox/Alum Hydrox 30 Ml Oral.Susp) 30 ml PO Q6H PRN PRN Reason: Heartburn/Nausea Amphetamine/Dextroamphetamine (Dextroamphetamine/Amphetamine Xr 5 Mg Cap.Er.24h) 15 mg PO DAILY [facility] Last Admin: 07/02/23 11:15 Dose: 15 mg Benzocaine (Throat Lozenge, Medicated Lozenge) 1 lozenge MUCOUS MEM Q2H PRN PRN Reason: Sore Throat Last Admin: 07/02/23 14:35 Dose: 1 lozenge Benzonatate (Benzonatate 100 Mg Capsule) 100 mg PO TID PRN PRN Reason: Cough Calcium Carbonate (Calcium Carbonate 750 Mg Tab.Chew) 750 mg PO Q6H PRN PRN Reason: Heartburn Duloxetine HCl (Duloxetine Hcl 60 Mg Capsule.Dr) 60 mg PO DAILY [facility] Last Admin: 07/02/23 08:17 Dose: 60 mg Haloperidol (Haloperidol 5 Mg Tablet) 5 mg PO DAILY@1400 [facility] Last Admin: 07/02/23 13:29 Dose: 5 mg Haloperidol (Haloperidol 5 Mg Tablet) 5 mg PO TID PRN PRN Reason: anxiety, agitation Last Admin: 07/02/23 15:43 Dose: 5 mg Hydroxyzine HCl (Hydroxyzine Hcl 25 Mg Tablet) 25 mg PO Q6H PRN PRN Reason: Anxiety Last Admin: 06/29/23 18:52 Dose: 25 mg Ibuprofen (Ibuprofen 400 Mg Tablet) 400 mg PO Q6H PRN PRN Reason: Pain, Mild (Pain Scale 1-3) Last Admin: 07/02/23 16:08 Dose: 400 mg Lorazepam (Lorazepam 1 Mg Tablet) 1 mg PO Q4H PRN PRN Reason: give w/Haldol for anx, agit Last Admin: 07/02/23 15:42 Dose: 1 mg Magnesium Hydroxide (Milk Of Magnesia 30 Ml Oral.Susp) 30 ml PO DAILY PRN PRN Reason: Constipation Magnesium Oxide (Magnesium Oxide 400 Mg Tablet) 400 mg PO DAILY [facility] Melatonin (Melatonin 3 Mg Tablet) 6 mg PO BEDTIME PRN PRN Reason: Insomnia Last Admin: 07/01/23 22:40 Dose: 6 mg Multivitamins/Vitamin C (Multivitamin Tablet) 1 tab PO DAILY [facility] Patient Own Medication (Arnicare Cream) 1 each TOPICAL TID PRN PRN Reason: pain Last Admin: 07/02/23 13:28 Dose: 1 each Patient Own Medication ([place] Ointment) 1 each TOPICAL QID PRN PRN Reason: pain Last Admin: 07/02/23 16:08 Dose: 1 each Ondansetron HCl (Ondansetron Hcl 4 Mg/2 Ml Vial) 4 mg IVPUSH Q8H PRN PRN Reason: Nausea and Vomiting Polyethylene Glycol (Polyethylene Glycol 3350 17 Gm Powd.Pack) 17 gm PO DAILY PRN PRN Reason: Constipation Prazosin HCl (Prazosin Hcl 1 Mg Capsule) 1 mg PO BEDTIME [facility]; Protocol Last Admin: 07/01/23 22:39 Dose: 1 mg Topiramate (Topiramate 25 Mg Tablet) 150 mg PO BEDTIME [facility] Last Admin: 07/01/23 22:39 Dose: 150 mg Tramadol HCl (Tramadol Hcl 50 Mg Tablet) 50 mg PO Q12H PRN PRN Reason: knee pain Last Admin: 07/02/23 10:41 Dose: 50 mg Trazodone HCl (Trazodone Hcl 100 Mg Tablet) 100 mg PO BEDTIME [facility] Last Admin: 07/01/23 22:39 Dose: 100 mg Vitamin D (Cholecalciferol (Vitamin D3) 10 Mcg Tablet) 10 mcg PO DAILY [facility] Allergies Allergies Allergy/AdvReac Type Severity Reaction Status Date / Time chlorpromazine Allergy Rash Verified 06/07/23 20:58 [From Thorazine] oxcarbazepine Allergy Unknown Verified 06/07/23 20:58 [From Trileptal] ziprasidone [From Geodon] Allergy Unknown Verified 06/07/23 20:58 Assessment & Plan Assessment & Plan (1) PTSD (post-traumatic stress disorder): Status: Acute Code(s): F43.10 - Post-traumatic stress disorder, unspecified (2) Borderline personality disorder: Status: Acute Code(s): F60.3 - Borderline personality disorder (3) Suicide attempt: Status: Acute Code(s): T14.91XA - Suicide attempt, initial encounter Plan Hospital course: 06/29 Patient remains on one-to-one; last night banging her head but was able to be redirected; thus far no self-harm today. Patient friendly on approach. Patient asked if tramadol could be increased since unable to cut it in half for 25 mg which has been ordered; keno writer / runner agreed that patient said that increased dose is helping. She asked for her regular clothes; she is not sure where she is in regards to remain safe but wants to work on a behavioral plan, keeping safe allowing her increased privileges. Discussed with nursing who is implementing plan. 06/30 Patient without any self-harming yesterday and last evening got there casual clothes back per behavioral plan; today however got dysregulated and banged head; patient hit forehead with minor superficial cut. 07/01 Pt discussing her behavior plan, discharge planning. Nasal congestion and sore throat today. Agrees to CAT Brain after head banging incidents. Plan: Pt to continue on 1:[address] Increased to Tramadol 50 mg 12H prn pain, to alternate with ibuprofen PT consult Continue current regime (connected with Dr. Moss) Encourage milieu therapy/groups Informed Consent: understands Reason for continued inpatient stay Substantial Risk for: rapid decompensation Time Spent With Patient Time: Total time managing care of this patient today ____ minutes.
--- NOTE | 2023-07-02 19:11 | PC.NURSE ---
At approximately 6:50pm Idris began to bang their head against the wall. 1:1 shouted for help and placed a pillow between the head and the wall. Additional staff assisted in ensuring that a pillow remained between head and while as Idris continued to attempt self harm. Code assist was called but Idris calmed down sufficiently that no responding staff made contact with the patient before being cancelled. Idris was guided to the bed as they began to calm down, and then climbed into the bed. They drank some water and applied an ice pack to the head injury. They cried and self soothed via rubbing feet against the sheet and rocking. They said they felt OK. aware of incident.
[2023-07-02 20:00] VITALS: BP 129/62; PULSE 86; RESP 16; TEMP 36.6; O2SAT 95
[2023-07-02] MEDS: Melatonin 3 MG TABLET 6 MG PO (22:43)
[2023-07-02] MEDS: traZODone HCL 100 MG TABLET PO (22:43)
[2023-07-02] MEDS: Topiramate 25 MG TABLET 150 MG PO (22:43)
[2023-07-02] MEDS: Prazosin HCL 1 MG CAPSULE PO (22:43)
[2023-07-03] MEDS: hydrOXYzine HCL 25 MG TABLET PO (02:55)
[2023-07-03] MEDS: LORazepam 1 MG TABLET PO ×2 (02:55→13:31)
[2023-07-03 08:00] VITALS: BP 128/64; PULSE 111; RESP 18; TEMP 36.6; O2SAT 93
[2023-07-03] MEDS: DULoxetine HCl 60 MG CAPSULE.DR PO (08:20)
[2023-07-03] MEDS: Magnesium Oxide 400 MG TABLET PO (08:20)
[2023-07-03] MEDS: Multivitamin TABLET 1 TAB PO (08:20)
[2023-07-03] MEDS: Cholecalciferol (Vitamin D3) 10 MCG TABLET PO (08:20)
[2023-07-03] MEDS: traMADoL HCL 50 MG TABLET PO (08:20)
--- NOTE | 2023-07-03 09:36 | HO.PSYCHPN ---
Subjective Subjective Date of Service: 07/03/23 Reason For Visit: PTSD, suicide attempt, MDD, Borderline Personality Subjective Notes: Conditional Voluntary Healthcare Proxy: No Guardianship: No Medical Problems Affecting Mental Status: No Interim History: Reports not feeling well today- ?ear/?sinus infection. Mucinex ordered. CAT Brain of 07/01 negative reading. Pt had an episode of head banging last evening after the CAT Scan. She believes the trigger to this was that someone commented on how well she was doing. I was just not feeling like myself. Medication Compliance: Yes Side effects from medications: No Attending Groups: Intermittent Review of Systems Acute medical concerns: No Medical Review of Systems: unchanged Review of Systems Review of Systems Reports not feeling well today, ?ear ?sinus infection sx. Mental Status Exam Mental Status Exam Patient Appearance: Appropriate Patient Orientation: Person, Place, Time and Situation Level of Consciousness: Alert Patient Behavior: Talkative and Good Eye Contact Mood Description: Depressed Affect Description: Flat Patient Cognition Impaired: No Ability to Follow Directions: Good Speech Pattern: Spontaneous Speech Memory Description: Intact Hallucinations: None Delusions: Not Present Perceptual Disturbances: Depersonalization and Derealization Thought Process: Rumination Thought Content: positive for Circumstantial Depressive Symptoms: Increased Anxiety, Loss of Int. in Activity and Difficulty Concentrating Judgement: Fair Diagnostics Vital Signs (24Hr): Vital Signs - 24 hr 07/03/23 08:00 Temperature 98 F Pulse Rate 111 H Respiratory Rate 18 Blood Pressure 128/64 Pulse Oximetry 93 Oxygen Delivery Method Room Air BMI result Body Mass Index 51.9 Labs 06/28/23 16:55 Imaging Radiology Impressions: ITS Impressions Head CT 07/02/23 17:16 IMPRESSION: No acute intracranial abnormality including hemorrhage, mass effect, hydrocephalus, or acute territorial edematous infarction. Medications Medications Current Medications Al Hydroxide/Mg Hydroxide (Magnesium Hydrox/Alum Hydrox 30 Ml Oral.Susp) 30 ml PO Q6H PRN PRN Reason: Heartburn/Nausea Amphetamine/Dextroamphetamine (Dextroamphetamine/Amphetamine Xr 5 Mg Cap.Er.24h) 15 mg PO DAILY [facility] Last Admin: 07/03/23 08:21 Dose: Not Given Benzocaine (Throat Lozenge, Medicated Lozenge) 1 lozenge MUCOUS MEM Q2H PRN PRN Reason: Sore Throat Last Admin: 07/02/23 14:35 Dose: 1 lozenge Benzonatate (Benzonatate 100 Mg Capsule) 100 mg PO TID PRN PRN Reason: Cough Calcium Carbonate (Calcium Carbonate 750 Mg Tab.Chew) 750 mg PO Q6H PRN PRN Reason: Heartburn Duloxetine HCl (Duloxetine Hcl 60 Mg Capsule.Dr) 60 mg PO DAILY [facility] Last Admin: 07/03/23 08:20 Dose: 60 mg Haloperidol (Haloperidol 5 Mg Tablet) 5 mg PO DAILY@1400 [facility] Last Admin: 07/02/23 13:29 Dose: 5 mg Haloperidol (Haloperidol 5 Mg Tablet) 5 mg PO TID PRN PRN Reason: anxiety, agitation Last Admin: 07/02/23 22:42 Dose: 5 mg Hydroxyzine HCl (Hydroxyzine Hcl 25 Mg Tablet) 25 mg PO Q6H PRN PRN Reason: Anxiety Last Admin: 07/03/23 02:55 Dose: 25 mg Ibuprofen (Ibuprofen 400 Mg Tablet) 400 mg PO Q6H PRN PRN Reason: Pain, Mild (Pain Scale 1-3) Last Admin: 07/02/23 16:08 Dose: 400 mg Lorazepam (Lorazepam 1 Mg Tablet) 1 mg PO Q4H PRN PRN Reason: give w/Haldol for anx, agit Last Admin: 07/03/23 02:55 Dose: 1 mg Magnesium Hydroxide (Milk Of Magnesia 30 Ml Oral.Susp) 30 ml PO DAILY PRN PRN Reason: Constipation Magnesium Oxide (Magnesium Oxide 400 Mg Tablet) 400 mg PO DAILY [facility] Last Admin: 07/03/23 08:20 Dose: 400 mg Melatonin (Melatonin 3 Mg Tablet) 6 mg PO BEDTIME PRN PRN Reason: Insomnia Last Admin: 07/02/23 22:43 Dose: 6 mg Multivitamins/Vitamin C (Multivitamin Tablet) 1 tab PO DAILY [facility] Last Admin: 07/03/23 08:20 Dose: 1 tab Patient Own Medication (Arnicare Cream) 1 each TOPICAL TID PRN PRN Reason: pain Last Admin: 07/02/23 13:28 Dose: 1 each Patient Own Medication ([place] Ointment) 1 each TOPICAL QID PRN PRN Reason: pain Last Admin: 07/02/23 16:08 Dose: 1 each Ondansetron HCl (Ondansetron Hcl 4 Mg/2 Ml Vial) 4 mg IVPUSH Q8H PRN PRN Reason: Nausea and Vomiting Polyethylene Glycol (Polyethylene Glycol 3350 17 Gm Powd.Pack) 17 gm PO DAILY PRN PRN Reason: Constipation Prazosin HCl (Prazosin Hcl 1 Mg Capsule) 1 mg PO BEDTIME [facility]; Protocol Last Admin: 07/02/23 22:43 Dose: 1 mg Topiramate (Topiramate 25 Mg Tablet) 150 mg PO BEDTIME [facility] Last Admin: 07/02/23 22:43 Dose: 150 mg Tramadol HCl (Tramadol Hcl 50 Mg Tablet) 50 mg PO Q12H PRN PRN Reason: knee pain Last Admin: 07/03/23 08:20 Dose: 50 mg Trazodone HCl (Trazodone Hcl 100 Mg Tablet) 100 mg PO BEDTIME [facility] Last Admin: 07/02/23 22:43 Dose: 100 mg Vitamin D (Cholecalciferol (Vitamin D3) 10 Mcg Tablet) 10 mcg PO DAILY [facility] Last Admin: 07/03/23 08:20 Dose: 10 mcg Allergies Allergies Allergy/AdvReac Type Severity Reaction Status Date / Time chlorpromazine Allergy Rash Verified 06/07/23 20:58 [From Thorazine] oxcarbazepine Allergy Unknown Verified 06/07/23 20:58 [From Trileptal] ziprasidone [From Geodon] Allergy Unknown Verified 06/07/23 20:58 Assessment & Plan Assessment & Plan (1) PTSD (post-traumatic stress disorder): Status: Acute Code(s): F43.10 - Post-traumatic stress disorder, unspecified (2) Borderline personality disorder: Status: Acute Code(s): F60.3 - Borderline personality disorder (3) Suicide attempt: Status: Acute Code(s): T14.91XA - Suicide attempt, initial encounter Plan Hospital course: 06/29 Patient remains on one-to-one; last night banging her head but was able to be redirected; thus far no self-harm today. Patient friendly on approach. Patient asked if tramadol could be increased since unable to cut it in half for 25 mg which has been ordered; physician underwriter agreed that patient said that increased dose is helping. She asked for her regular clothes; she is not sure where she is in regards to remain safe but wants to work on a behavioral plan, keeping safe allowing her increased privileges. Discussed with nursing who is implementing plan. 06/30 Patient without any self-harming yesterday and last evening got there casual clothes back per behavioral plan; today however got dysregulated and banged head; patient hit forehead with minor superficial cut. 07/01 Pt discussing her behavior plan, discharge planning. Nasal congestion and sore throat today. Agrees to CAT Brain after head banging incidents. 07/03/23 Nasal congestion/ear infection sx persist. Mucinex ordered. Plan: Pt to continue on 1:[address] Increased to Tramadol 50 mg 12H prn pain, to alternate with ibuprofen PT consult Continue current regime (connected with Dr. Moss) Encourage milieu therapy/groups Informed Consent: understands Reason for continued inpatient stay Substantial Risk for: rapid decompensation Time Spent With Patient Time: Total time managing care of this patient today ____ minutes.
[2023-07-03] MEDS: guaiFENesin LA 600 MG TAB.ER.12H PO (11:01)
[2023-07-03] MEDS: HaloperidoL 5 MG TABLET PO (13:31)
[2023-07-03 20:00] VITALS: BP 122/58; PULSE 110; RESP 16; TEMP 36.4; O2SAT 93
[2023-07-03] MEDS: Topiramate 25 MG TABLET 150 MG PO (20:17)
[2023-07-03] MEDS: traZODone HCL 100 MG TABLET PO (20:17)
[2023-07-03] MEDS: Prazosin HCL 1 MG CAPSULE PO (20:17)
[2023-07-04] MEDS: Ibuprofen 400 MG TABLET PO ×2 (00:03→12:48)
[2023-07-04 08:00] VITALS: BP 130/74; PULSE 112; RESP 16; TEMP 36.5; O2SAT 95
[2023-07-04] MEDS: Magnesium Oxide 400 MG TABLET PO (08:37)
[2023-07-04] MEDS: guaiFENesin LA 600 MG TAB.ER.12H PO (08:37)
[2023-07-04] MEDS: Dextroamphetamine/Amphetamine XR 5 MG CAP.ER.24H 15 MG PO (08:37)
[2023-07-04] MEDS: Multivitamin TABLET 1 TAB PO (08:37)
[2023-07-04] MEDS: Cholecalciferol (Vitamin D3) 10 MCG TABLET PO (08:38)
[2023-07-04] MEDS: DULoxetine HCl 60 MG CAPSULE.DR PO (08:38)
[2023-07-04] MEDS: traMADoL HCL 50 MG TABLET PO (08:39)
--- NOTE | 2023-07-04 10:45 | P.PNPSI_ITS ---
Subjective Subjective Date of Service: 07/04/23 Reason For Visit: PTSD, suicide attempt, MDD, Borderline Personality Subjective Notes: Conditional Voluntary Healthcare Proxy: No Guardianship: No Medical Problems Affecting Mental Status: No Interim History: Pt working toward discharge on 07/09 so she may attend her cardiology appt. Today she discussed feeling that she is informed of all group content offered and is looking to focus on other modalities. Discussed checking in with her therapist for some ideas to structure her time. Discussion with therapist Racquel Gonzalez of the the DBT team of service net [phone] who agrees that pt is well educated in DBT. Racquel encourages pt utilize her process time to work on creative expression activities, art, music, dance, connecting to her feelings, role play and improving her mastery of the environment she is in. Racquel is available to team and will participate in pts team meeting prior to discharge. Medication Compliance: Yes Side effects from medications: No Attending Groups: Yes Review of Systems Acute medical concerns: No Medical Review of Systems: unchanged Review of Systems Review of Systems Fatigued today, some URI sx linger. SARS/Flu/RSV testing is negative. Mental Status Exam Mental Status Exam Patient Appearance: Appropriate Patient Orientation: Person, Place, Time and Situation Level of Consciousness: Alert Patient Behavior: Talkative and Good Eye Contact Mood Description: Depressed Affect Description: Flat Patient Cognition Impaired: No Ability to Follow Directions: Good Speech Pattern: Spontaneous Speech Memory Description: Intact Hallucinations: None Delusions: Not Present Perceptual Disturbances: Depersonalization and Derealization Thought Process: Rumination Thought Content: positive for Circumstantial Depressive Symptoms: Increased Anxiety, Loss of Int. in Activity and Difficulty Concentrating Judgement: Fair Diagnostics Vital Signs (24Hr): Vital Signs - 24 hr 07/03/23 20:00 07/04/23 08:00 Temperature 97.6 F 97.7 F Pulse Rate 110 H 112 H Respiratory Rate 16 16 Blood Pressure 122/58 L 130/74 Pulse Oximetry 93 95 Oxygen Delivery Method Room Air BMI result Body Mass Index 51.9 Labs 06/28/23 16:55 Imaging Radiology Impressions: ITS Impressions Head CT 07/02/23 17:16 IMPRESSION: No acute intracranial abnormality including hemorrhage, mass effect, hydrocephalus, or acute territorial edematous infarction. Medications Medications Current Medications Al Hydroxide/Mg Hydroxide (Magnesium Hydrox/Alum Hydrox 30 Ml Oral.Susp) 30 ml PO Q6H PRN PRN Reason: Heartburn/Nausea Amphetamine/Dextroamphetamine (Dextroamphetamine/Amphetamine Xr 5 Mg Cap.Er.24h) 15 mg PO DAILY [facility] Last Admin: 07/04/23 08:37 Dose: 15 mg Benzocaine (Throat Lozenge, Medicated Lozenge) 1 lozenge MUCOUS MEM Q2H PRN PRN Reason: Sore Throat Last Admin: 07/02/23 14:35 Dose: 1 lozenge Benzonatate (Benzonatate 100 Mg Capsule) 100 mg PO TID PRN PRN Reason: Cough Calcium Carbonate (Calcium Carbonate 750 Mg Tab.Chew) 750 mg PO Q6H PRN PRN Reason: Heartburn Duloxetine HCl (Duloxetine Hcl 60 Mg Capsule.Dr) 60 mg PO DAILY [facility] Last Admin: 07/04/23 08:38 Dose: 60 mg Guaifenesin (Guaifenesin La 600 Mg Tab.Er.12h) 600 mg PO BID PRN PRN Reason: Congestion Last Admin: 07/04/23 08:37 Dose: 600 mg Haloperidol (Haloperidol 5 Mg Tablet) 5 mg PO DAILY@1400 [facility] Last Admin: 07/03/23 13:31 Dose: 5 mg Haloperidol (Haloperidol 5 Mg Tablet) 5 mg PO TID PRN PRN Reason: anxiety, agitation Last Admin: 07/02/23 22:42 Dose: 5 mg Hydroxyzine HCl (Hydroxyzine Hcl 25 Mg Tablet) 25 mg PO Q6H PRN PRN Reason: Anxiety Last Admin: 07/03/23 02:55 Dose: 25 mg Ibuprofen (Ibuprofen 400 Mg Tablet) 400 mg PO Q6H PRN PRN Reason: Pain, Mild (Pain Scale 1-3) Last Admin: 07/04/23 00:03 Dose: 400 mg Lorazepam (Lorazepam 1 Mg Tablet) 1 mg PO Q4H PRN PRN Reason: give w/Haldol for anx, agit Last Admin: 07/03/23 13:31 Dose: 1 mg Magnesium Hydroxide (Milk Of Magnesia 30 Ml Oral.Susp) 30 ml PO DAILY PRN PRN Reason: Constipation Magnesium Oxide (Magnesium Oxide 400 Mg Tablet) 400 mg PO DAILY [facility] Last Admin: 07/04/23 08:37 Dose: 400 mg Melatonin (Melatonin 3 Mg Tablet) 6 mg PO BEDTIME PRN PRN Reason: Insomnia Last Admin: 07/02/23 22:43 Dose: 6 mg Multivitamins/Vitamin C (Multivitamin Tablet) 1 tab PO DAILY [facility] Last Admin: 07/04/23 08:37 Dose: 1 tab Patient Own Medication (Arnicare Cream) 1 each TOPICAL TID PRN PRN Reason: pain Last Admin: 07/02/23 13:28 Dose: 1 each Patient Own Medication ([place] Ointment) 1 each TOPICAL QID PRN PRN Reason: pain Last Admin: 07/04/23 09:58 Dose: 1 each Ondansetron HCl (Ondansetron Hcl 4 Mg/2 Ml Vial) 4 mg IVPUSH Q8H PRN PRN Reason: Nausea and Vomiting Polyethylene Glycol (Polyethylene Glycol 3350 17 Gm Powd.Pack) 17 gm PO DAILY PRN PRN Reason: Constipation Prazosin HCl (Prazosin Hcl 1 Mg Capsule) 1 mg PO BEDTIME [facility]; Protocol Last Admin: 07/03/23 20:17 Dose: 1 mg Topiramate (Topiramate 25 Mg Tablet) 150 mg PO BEDTIME [facility] Last Admin: 07/03/23 20:17 Dose: 150 mg Tramadol HCl (Tramadol Hcl 50 Mg Tablet) 50 mg PO Q12H PRN PRN Reason: knee pain Last Admin: 07/04/23 08:39 Dose: 50 mg Trazodone HCl (Trazodone Hcl 100 Mg Tablet) 100 mg PO BEDTIME [facility] Last Admin: 07/03/23 20:17 Dose: 100 mg Vitamin D (Cholecalciferol (Vitamin D3) 10 Mcg Tablet) 10 mcg PO DAILY [facility] Last Admin: 07/04/23 08:38 Dose: 10 mcg Allergies Allergies Allergy/AdvReac Type Severity Reaction Status Date / Time chlorpromazine Allergy Rash Verified 06/07/23 20:58 [From Thorazine] oxcarbazepine Allergy Unknown Verified 06/07/23 20:58 [From Trileptal] ziprasidone [From Geodon] Allergy Unknown Verified 06/07/23 20:58 Assessment & Plan Assessment & Plan (1) PTSD (post-traumatic stress disorder): Status: Acute Code(s): F43.10 - Post-traumatic stress disorder, unspecified (2) Borderline personality disorder: Status: Acute Code(s): F60.3 - Borderline personality disorder (3) Suicide attempt: Status: Acute Code(s): T14.91XA - Suicide attempt, initial encounter Plan Hospital course: 06/29 Patient remains on one-to-one; last night banging her head but was able to be redirected; thus far no self-harm today. Patient friendly on approach. Patient asked if tramadol could be increased since unable to cut it in half for 25 mg which has been ordered; job specification writer agreed that patient said that increased dose is helping. She asked for her regular clothes; she is not sure where she is in regards to remain safe but wants to work on a behavioral plan, keeping safe allowing her increased privileges. Discussed with nursing who is implementing plan. 06/30 Patient without any self-harming yesterday and last evening got there casual clothes back per behavioral plan; today however got dysregulated and banged head; patient hit forehead with minor superficial cut. 07/01 Pt discussing her behavior plan, discharge planning. Nasal congestion and sore throat today. Agrees to CAT Brain after head banging incidents. 07/03/23 Nasal congestion/ear infection sx persist. Mucinex ordered. 07/03: Continue Tx, Encouarge creative expression as suggested by out pt therapist. Plan: Pt to continue on 1:[address] Increased to Tramadol 50 mg 12H prn pain, to alternate with ibuprofen PT consult Continue current regime (connected with Dr. Moss) Encourage milieu therapy/groups Informed Consent: understands Reason for continued inpatient stay Substantial Risk for: rapid decompensation Time Spent With Patient Time: Total time managing care of this patient today ____ minutes.
[2023-07-04] MEDS: LORazepam 1 MG TABLET PO ×3 (11:22→18:01)
[2023-07-04] MEDS: HaloperidoL 5 MG TABLET PO ×3 (11:22→18:01)
[2023-07-04 14:33] LABS: Influenza A PCR NEGATIVE (Negative); Influenza B PCR NEGATIVE (Negative); Resp Syncy Virus RNA Qual PCR NEGATIVE (Negative); SARS COV2 PCR INHOUSE NEGATIVE (Negative)
[2023-07-04 20:00] VITALS: BP 125/67; PULSE 112; RESP 16; TEMP 36.6; O2SAT 95
[2023-07-04 21:48] VITALS: BP 125/67
[2023-07-04] MEDS: Topiramate 25 MG TABLET 150 MG PO (21:48)
[2023-07-04] MEDS: Prazosin HCL 1 MG CAPSULE PO (21:48)
[2023-07-04] MEDS: traZODone HCL 100 MG TABLET PO (21:49)
[2023-07-05] MEDS: traMADoL HCL 50 MG TABLET PO ×2 (07:00→19:35)
[2023-07-05 08:00] VITALS: BP 117/76; PULSE 106; RESP 16; TEMP 36.3; O2SAT 96
[2023-07-05] MEDS: Magnesium Oxide 400 MG TABLET PO (08:01)
[2023-07-05] MEDS: Multivitamin TABLET 1 TAB PO (08:01)
[2023-07-05] MEDS: Cholecalciferol (Vitamin D3) 10 MCG TABLET PO (08:02)
[2023-07-05] MEDS: Dextroamphetamine/Amphetamine XR 5 MG CAP.ER.24H 15 MG PO (08:02)
[2023-07-05] MEDS: DULoxetine HCl 60 MG CAPSULE.DR PO (08:02)
[2023-07-05] MEDS: LORazepam 1 MG TABLET PO ×2 (11:41→17:19)
[2023-07-05] MEDS: HaloperidoL 5 MG TABLET PO ×2 (13:13→18:39)
--- NOTE | 2023-07-05 15:33 | HO.PSYCHPN ---
Subjective Subjective Date of Service: 07/05/23 Reason For Visit: PTSD, suicide attempt, MDD, Borderline Personality Subjective Notes: Conditional Voluntary Healthcare Proxy: No Guardianship: No Medical Problems Affecting Mental Status: No Interim History: Pt reports not feeling well with Adderall- will hold- feeling restlessness and sensory increase. Reports 3 instances of head banging on 07/03. Discussed tw conversation with pt's therapist and therapists suggestions for utilization of time-creative expression, environmental mastery, connection to feelings via attending groups. Pt agreed and will work with the team on this. One to one remains. Pt exercising this afternoon and more visable in the milieu. Wanting to put together a few days of safe behaviors to prepare to discharge on 07/09. Medication Compliance: Yes Side effects from medications: Yes (??) Attending Groups: Yes Review of Systems Acute medical concerns: No Medical Review of Systems: unchanged Review of Systems Review of Systems Fatigued today, some URI sx linger. SARS/Flu/RSV testing is negative. Mental Status Exam Mental Status Exam Patient Appearance: Appropriate Patient Orientation: Person, Place, Time and Situation Level of Consciousness: Alert Patient Behavior: Talkative and Good Eye Contact Mood Description: Depressed Affect Description: Flat Patient Cognition Impaired: No Ability to Follow Directions: Good Speech Pattern: Spontaneous Speech Memory Description: Intact Hallucinations: None Delusions: Not Present Perceptual Disturbances: Depersonalization and Derealization Thought Process: Rumination Thought Content: positive for Circumstantial Depressive Symptoms: Increased Anxiety, Loss of Int. in Activity and Difficulty Concentrating Judgement: Fair Diagnostics Vital Signs (24Hr): Vital Signs - 24 hr 07/04/23 20:00 07/04/23 21:48 07/05/23 08:00 Temperature 97.8 F 97.4 F Pulse Rate 112 H 106 H Respiratory Rate 16 16 Blood Pressure 125/67 125/67 117/76 Pulse Oximetry 95 96 Oxygen Delivery Method Room Air Room Air BMI result Body Mass Index 51.9 Labs 06/28/23 16:55 Labs: Laboratory Results - last 48 hr 07/04/23 12:52 Influenza Type A (PCR) NEGATIVE Influenza Type B (PCR) NEGATIVE RSV RNA Qual (PCR) NEGATIVE SARS-CoV-2 RNA (RT-PCR) NEGATIVE Imaging Radiology Impressions: ITS Impressions Head CT 07/02/23 17:16 IMPRESSION: No acute intracranial abnormality including hemorrhage, mass effect, hydrocephalus, or acute territorial edematous infarction. Medications Medications Current Medications Al Hydroxide/Mg Hydroxide (Magnesium Hydrox/Alum Hydrox 30 Ml Oral.Susp) 30 ml PO Q6H PRN PRN Reason: Heartburn/Nausea Amphetamine/Dextroamphetamine (Dextroamphetamine/Amphetamine Xr 5 Mg Cap.Er.24h) 15 mg PO DAILY [facility] Last Admin: 07/05/23 08:02 Dose: 15 mg Benzocaine (Throat Lozenge, Medicated Lozenge) 1 lozenge MUCOUS MEM Q2H PRN PRN Reason: Sore Throat Last Admin: 07/02/23 14:35 Dose: 1 lozenge Benzonatate (Benzonatate 100 Mg Capsule) 100 mg PO TID PRN PRN Reason: Cough Calcium Carbonate (Calcium Carbonate 750 Mg Tab.Chew) 750 mg PO Q6H PRN PRN Reason: Heartburn Duloxetine HCl (Duloxetine Hcl 60 Mg Capsule.Dr) 60 mg PO DAILY [facility] Last Admin: 07/05/23 08:02 Dose: 60 mg Guaifenesin (Guaifenesin La 600 Mg Tab.Er.12h) 600 mg PO BID PRN PRN Reason: Congestion Last Admin: 07/04/23 08:37 Dose: 600 mg Haloperidol (Haloperidol 5 Mg Tablet) 5 mg PO DAILY@1400 [facility] Last Admin: 07/05/23 13:13 Dose: 5 mg Haloperidol (Haloperidol 1 Mg Tablet) 2 mg PO TID PRN PRN Reason: agitation,psychosis, self harm Haloperidol (Haloperidol 5 Mg Tablet) 5 mg PO TID PRN PRN Reason: severe anxiety,severe agitatio Hydroxyzine HCl (Hydroxyzine Hcl 25 Mg Tablet) 25 mg PO Q6H PRN PRN Reason: Anxiety Last Admin: 07/03/23 02:55 Dose: 25 mg Ibuprofen (Ibuprofen 400 Mg Tablet) 400 mg PO Q6H PRN PRN Reason: Pain, Mild (Pain Scale 1-3) Last Admin: 07/04/23 12:48 Dose: 400 mg Lorazepam (Lorazepam 1 Mg Tablet) 1 mg PO Q4H PRN PRN Reason: give w/Haldol for anx, agit Last Admin: 07/05/23 11:41 Dose: 1 mg Magnesium Hydroxide (Milk Of Magnesia 30 Ml Oral.Susp) 30 ml PO DAILY PRN PRN Reason: Constipation Magnesium Oxide (Magnesium Oxide 400 Mg Tablet) 400 mg PO DAILY [facility] Last Admin: 07/05/23 08:01 Dose: 400 mg Melatonin (Melatonin 3 Mg Tablet) 6 mg PO BEDTIME PRN PRN Reason: Insomnia Last Admin: 07/02/23 22:43 Dose: 6 mg Multivitamins/Vitamin C (Multivitamin Tablet) 1 tab PO DAILY [facility] Last Admin: 07/05/23 08:01 Dose: 1 tab Patient Own Medication (Arnicare Cream) 1 each TOPICAL TID PRN PRN Reason: pain Last Admin: 07/02/23 13:28 Dose: 1 each Patient Own Medication ([place] Ointment) 1 each TOPICAL QID PRN PRN Reason: pain Last Admin: 07/05/23 13:13 Dose: 1 each Ondansetron HCl (Ondansetron Hcl 4 Mg/2 Ml Vial) 4 mg IVPUSH Q8H PRN PRN Reason: Nausea and Vomiting Polyethylene Glycol (Polyethylene Glycol 3350 17 Gm Powd.Pack) 17 gm PO DAILY PRN PRN Reason: Constipation Prazosin HCl (Prazosin Hcl 1 Mg Capsule) 1 mg PO BEDTIME [facility]; Protocol Last Admin: 07/04/23 21:48 Dose: 1 mg Topiramate (Topiramate 25 Mg Tablet) 150 mg PO BEDTIME [facility] Last Admin: 07/04/23 21:48 Dose: 150 mg Tramadol HCl (Tramadol Hcl 50 Mg Tablet) 50 mg PO Q12H PRN PRN Reason: knee pain Last Admin: 07/05/23 07:00 Dose: 50 mg Trazodone HCl (Trazodone Hcl 100 Mg Tablet) 100 mg PO BEDTIME [facility] Last Admin: 07/04/23 21:49 Dose: 100 mg Vitamin D (Cholecalciferol (Vitamin D3) 10 Mcg Tablet) 10 mcg PO DAILY [facility] Last Admin: 07/05/23 08:02 Dose: 10 mcg Allergies Allergies Allergy/AdvReac Type Severity Reaction Status Date / Time chlorpromazine Allergy Rash Verified 06/07/23 20:58 [From Thorazine] oxcarbazepine Allergy Unknown Verified 06/07/23 20:58 [From Trileptal] ziprasidone [From Geodon] Allergy Unknown Verified 06/07/23 20:58 Assessment & Plan Assessment & Plan (1) PTSD (post-traumatic stress disorder): Status: Acute Code(s): F43.10 - Post-traumatic stress disorder, unspecified (2) Borderline personality disorder: Status: Acute Code(s): F60.3 - Borderline personality disorder (3) Suicide attempt: Status: Acute Code(s): T14.91XA - Suicide attempt, initial encounter Plan Hospital course: 06/29 Patient remains on one-to-one; last night banging her head but was able to be redirected; thus far no self-harm today. Patient friendly on approach. Patient asked if tramadol could be increased since unable to cut it in half for 25 mg which has been ordered; technical writer and editor agreed that patient said that increased dose is helping. She asked for her regular clothes; she is not sure where she is in regards to remain safe but wants to work on a behavioral plan, keeping safe allowing her increased privileges. Discussed with nursing who is implementing plan. 06/30 Patient without any self-harming yesterday and last evening got there casual clothes back per behavioral plan; today however got dysregulated and banged head; patient hit forehead with minor superficial cut. 07/01 Pt discussing her behavior plan, discharge planning. Nasal congestion and sore throat today. Agrees to CAT Brain after head banging incidents. 07/03/23 Nasal congestion/ear infection sx persist. Mucinex ordered. 07/03: Continue Tx, Encouarge creative expression as suggested by out pt therapist. 07/04: Continue tx. Hold Adderall Plan: Pt to continue on 1:[address] Increased to Tramadol 50 mg 12H prn pain, to alternate with ibuprofen PT consult Continue current regime (connected with Dr. Moss) Encourage milieu therapy/groups Reason for continued inpatient stay Substantial Risk for: rapid decompensation Time Spent With Patient Time: Total time managing care of this patient today ____ minutes.
[2023-07-05] MEDS: Ibuprofen 400 MG TABLET PO (17:19)
[2023-07-05 19:53] VITALS: BP 157/59; PULSE 102; RESP 18; TEMP 37; O2SAT 98
[2023-07-05] MEDS: Topiramate 25 MG TABLET 150 MG PO (20:03)
[2023-07-05 20:04] VITALS: BP 157/59
[2023-07-05] MEDS: traZODone HCL 100 MG TABLET PO (20:04)
[2023-07-05] MEDS: Melatonin 3 MG TABLET 6 MG PO (20:04)
[2023-07-05] MEDS: Prazosin HCL 1 MG CAPSULE PO (20:04)
[2023-07-06] MEDS: Multivitamin TABLET 1 TAB PO (08:59)
[2023-07-06] MEDS: DULoxetine HCl 60 MG CAPSULE.DR PO (08:59)
[2023-07-06] MEDS: Cholecalciferol (Vitamin D3) 10 MCG TABLET PO (08:59)
[2023-07-06] MEDS: Magnesium Oxide 400 MG TABLET PO (08:59)
[2023-07-06] MEDS: LORazepam 1 MG TABLET PO ×2 (11:47→18:23)
[2023-07-06] MEDS: Ibuprofen 400 MG TABLET PO (14:06)
--- NOTE | 2023-07-06 16:20 | P.PNPSI_ITS ---
Subjective Subjective Date of Service: 07/06/23 Reason For Visit: PTSD, suicide attempt, MDD, Borderline Personality Subjective Notes: Conditional Voluntary Healthcare Proxy: No Guardianship: No Medical Problems Affecting Mental Status: No Interim History: One to one in place. Pt is asleep when tw attempted to meet with her. Visable in milieu this a.m. Adderall discontinued. Concerta XR 27 mg ordered and received at the end of this day for 07/06. Hopefully this will increase mood stability with regular med/dosing having returned. Team is working with pt on activity increase to assist her in creative expression, connection to feelings, and mastering her environment as her therapist had suggested. Medication Compliance: Yes Side effects from medications: Yes (Adderall appears too stimulating, return to Concerta XR 27 mg) Attending Groups: Yes Review of Systems Acute medical concerns: No Medical Review of Systems: unchanged Mental Status Exam Mental Status Exam Narrative: Asleep today when tw attempted to meet with pt. Patient Appearance: Appropriate Patient Orientation: Person, Place, Time and Situation Level of Consciousness: Alert Patient Behavior: Talkative and Good Eye Contact Mood Description: Depressed Affect Description: Flat Patient Cognition Impaired: No Ability to Follow Directions: Good Speech Pattern: Spontaneous Speech Memory Description: Intact Hallucinations: None Delusions: Not Present Perceptual Disturbances: Depersonalization and Derealization Thought Process: Rumination Thought Content: positive for Circumstantial Depressive Symptoms: Increased Anxiety, Loss of Int. in Activity and Difficulty Concentrating Judgement: Fair Diagnostics Vital Signs (24Hr): Vital Signs - 24 hr 07/05/23 19:53 07/05/23 20:04 Temperature 98.6 F Pulse Rate 102 H Respiratory Rate 18 Blood Pressure 157/59 H 157/59 H Pulse Oximetry 98 Oxygen Delivery Method Room Air BMI result Body Mass Index 51.9 Labs 06/28/23 16:55 Imaging Radiology Impressions: ITS Impressions Head CT 07/02/23 17:16 IMPRESSION: No acute intracranial abnormality including hemorrhage, mass effect, hydrocephalus, or acute territorial edematous infarction. Medications Medications Current Medications Al Hydroxide/Mg Hydroxide (Magnesium Hydrox/Alum Hydrox 30 Ml Oral.Susp) 30 ml PO Q6H PRN PRN Reason: Heartburn/Nausea Amphetamine/Dextroamphetamine (Dextroamphetamine/Amphetamine Xr 5 Mg Cap.Er.24h) 15 mg PO DAILY [facility] Last Admin: 07/05/23 08:02 Dose: 15 mg Benzocaine (Throat Lozenge, Medicated Lozenge) 1 lozenge MUCOUS MEM Q2H PRN PRN Reason: Sore Throat Last Admin: 07/02/23 14:35 Dose: 1 lozenge Benzonatate (Benzonatate 100 Mg Capsule) 100 mg PO TID PRN PRN Reason: Cough Calcium Carbonate (Calcium Carbonate 750 Mg Tab.Chew) 750 mg PO Q6H PRN PRN Reason: Heartburn Duloxetine HCl (Duloxetine Hcl 60 Mg Capsule.Dr) 60 mg PO DAILY [facility] Last Admin: 07/06/23 08:59 Dose: 60 mg Guaifenesin (Guaifenesin La 600 Mg Tab.Er.12h) 600 mg PO BID PRN PRN Reason: Congestion Last Admin: 07/04/23 08:37 Dose: 600 mg Haloperidol (Haloperidol 5 Mg Tablet) 5 mg PO DAILY@1400 [facility] Last Admin: 07/05/23 13:13 Dose: 5 mg Haloperidol (Haloperidol 1 Mg Tablet) 2 mg PO TID PRN PRN Reason: agitation,psychosis, self harm Haloperidol (Haloperidol 5 Mg Tablet) 5 mg PO TID PRN PRN Reason: severe anxiety,severe agitatio Last Admin: 07/05/23 18:39 Dose: 5 mg Hydroxyzine HCl (Hydroxyzine Hcl 25 Mg Tablet) 25 mg PO Q6H PRN PRN Reason: Anxiety Last Admin: 07/03/23 02:55 Dose: 25 mg Ibuprofen (Ibuprofen 400 Mg Tablet) 400 mg PO Q6H PRN PRN Reason: Pain, Mild (Pain Scale 1-3) Last Admin: 07/06/23 14:06 Dose: 400 mg Lorazepam (Lorazepam 1 Mg Tablet) 1 mg PO Q4H PRN PRN Reason: give w/Haldol for anx, agit Last Admin: 07/06/23 11:47 Dose: 1 mg Magnesium Hydroxide (Milk Of Magnesia 30 Ml Oral.Susp) 30 ml PO DAILY PRN PRN Reason: Constipation Magnesium Oxide (Magnesium Oxide 400 Mg Tablet) 400 mg PO DAILY [facility] Last Admin: 07/06/23 08:59 Dose: 400 mg Melatonin (Melatonin 3 Mg Tablet) 6 mg PO BEDTIME PRN PRN Reason: Insomnia Last Admin: 07/05/23 20:04 Dose: 6 mg Multivitamins/Vitamin C (Multivitamin Tablet) 1 tab PO DAILY [facility] Last Admin: 07/06/23 08:59 Dose: 1 tab Patient Own Medication (Arnicare Cream) 1 each TOPICAL TID PRN PRN Reason: pain Last Admin: 07/02/23 13:28 Dose: 1 each Patient Own Medication ([place] Ointment) 1 each TOPICAL QID PRN PRN Reason: pain Last Admin: 07/06/23 14:08 Dose: 1 each Non-Formulary Medication (Concerta Er 27 Mg) 1 tab PO DAILY [facility] Ondansetron HCl (Ondansetron Hcl 4 Mg/2 Ml Vial) 4 mg IVPUSH Q8H PRN PRN Reason: Nausea and Vomiting Polyethylene Glycol (Polyethylene Glycol 3350 17 Gm Powd.Pack) 17 gm PO DAILY PRN PRN Reason: Constipation Prazosin HCl (Prazosin Hcl 1 Mg Capsule) 1 mg PO BEDTIME [facility]; Protocol Last Admin: 07/05/23 20:04 Dose: 1 mg Topiramate (Topiramate 25 Mg Tablet) 150 mg PO BEDTIME [facility] Last Admin: 07/05/23 20:03 Dose: 150 mg Tramadol HCl (Tramadol Hcl 50 Mg Tablet) 50 mg PO Q12H PRN PRN Reason: knee pain Last Admin: 07/05/23 19:35 Dose: 50 mg Trazodone HCl (Trazodone Hcl 100 Mg Tablet) 100 mg PO BEDTIME [facility] Last Admin: 07/05/23 20:04 Dose: 100 mg Vitamin D (Cholecalciferol (Vitamin D3) 10 Mcg Tablet) 10 mcg PO DAILY [facility] Last Admin: 07/06/23 08:59 Dose: 10 mcg Allergies Allergies Allergy/AdvReac Type Severity Reaction Status Date / Time chlorpromazine Allergy Rash Verified 06/07/23 20:58 [From Thorazine] oxcarbazepine Allergy Unknown Verified 06/07/23 20:58 [From Trileptal] ziprasidone [From Geodon] Allergy Unknown Verified 06/07/23 20:58 Assessment & Plan Assessment & Plan (1) PTSD (post-traumatic stress disorder): Status: Acute Code(s): F43.10 - Post-traumatic stress disorder, unspecified (2) Borderline personality disorder: Status: Acute Code(s): F60.3 - Borderline personality disorder (3) Suicide attempt: Status: Acute Code(s): T14.91XA - Suicide attempt, initial encounter Plan Hospital course: 06/29 Patient remains on one-to-one; last night banging her head but was able to be redirected; thus far no self-harm today. Patient friendly on approach. Patient asked if tramadol could be increased since unable to cut it in half for 25 mg which has been ordered; publicity writer agreed that patient said that increased dose is helping. She asked for her regular clothes; she is not sure where she is in regards to remain safe but wants to work on a behavioral plan, keeping safe allowing her increased privileges. Discussed with nursing who is implementing plan. 06/30 Patient without any self-harming yesterday and last evening got there casual clothes back per behavioral plan; today however got dysregulated and banged head; patient hit forehead with minor superficial cut. 07/01 Pt discussing her behavior plan, discharge planning. Nasal congestion and sore throat today. Agrees to CAT Brain after head banging incidents. 07/03/23 Nasal congestion/ear infection sx persist. Mucinex ordered. 07/03: Continue Tx, Encouarge creative expression as suggested by out pt therapist. 07/04: Continue tx. Hold Adderall 07/05: Discontinue Adderall Concerta XR 27 mg daily ordered from [facility] pharmacy and delivered at the end of the day. Plan: Pt to continue on 1:[address] Increased to Tramadol 50 mg 12H prn pain, to alternate with ibuprofen PT consult Continue current regime (connected with Dr. Moss) Encourage milieu therapy/groups Informed Consent: understands Reason for continued inpatient stay Substantial Risk for: rapid decompensation Time Spent With Patient Time: Total time managing care of this patient today ____ minutes.
[2023-07-06 18:54] VITALS: BP 138/70; PULSE 92; RESP 20; TEMP 36.6; O2SAT 100
[2023-07-06 20:00] VITALS: BP 129/62; PULSE 86; RESP 16; TEMP 36.6; O2SAT 95
[2023-07-06] MEDS: Melatonin 3 MG TABLET 6 MG PO (21:31)
[2023-07-06] MEDS: Topiramate 25 MG TABLET 150 MG PO (21:31)
[2023-07-06] MEDS: Prazosin HCL 1 MG CAPSULE PO (21:31)
[2023-07-06] MEDS: traZODone HCL 100 MG TABLET PO (21:31)
--- NOTE | 2023-07-07 08:03 | P.PNPSI_ITS ---
Subjective Subjective Date of Service: 07/07/23 Reason For Visit: PTSD, suicide attempt, MDD, Borderline Personality Interim History: One to one in place. Pt is asleep when tw attempted to meet with her. Pt tied socks together secretly last night in attemmpt to harm self but then disclosed to staff; room serched and pt on one to one. Visable in milieu this a.m. Team is working with pt on activity increase to assist her in creative expression, connection to feelings, and mastering her environment as her therapist had suggested. Medication Compliance: Yes Side effects from medications: No Attending Groups: Intermittent Review of Systems Review of Systems Fatigued today, some URI sx linger. SARS/Flu/RSV testing is negative. Mental Status Exam Mental Status Exam Narrative: Asleep today when tw attempted to meet with pt. Patient Appearance: Appropriate Patient Orientation: Person, Place, Time and Situation Level of Consciousness: Alert Patient Behavior: Talkative and Good Eye Contact Mood Description: Depressed Affect Description: Flat Patient Cognition Impaired: No Ability to Follow Directions: Good Speech Pattern: Spontaneous Speech Memory Description: Intact Diagnostics Vital Signs (24Hr): Vital Signs - 24 hr 07/06/23 18:54 07/06/23 20:00 Temperature 98 F 97.8 F Pulse Rate 92 86 Respiratory Rate 20 16 Blood Pressure 138/70 129/62 Pulse Oximetry 100 95 Oxygen Delivery Method Room Air Room Air BMI result Body Mass Index 51.9 Labs 06/28/23 16:55 Imaging Radiology Impressions: ITS Impressions Head CT 07/02/23 17:16 IMPRESSION: No acute intracranial abnormality including hemorrhage, mass effect, hydrocephalus, or acute territorial edematous infarction. Medications Medications Current Medications Al Hydroxide/Mg Hydroxide (Magnesium Hydrox/Alum Hydrox 30 Ml Oral.Susp) 30 ml PO Q6H PRN PRN Reason: Heartburn/Nausea Benzocaine (Throat Lozenge, Medicated Lozenge) 1 lozenge MUCOUS MEM Q2H PRN PRN Reason: Sore Throat Last Admin: 07/02/23 14:35 Dose: 1 lozenge Benzonatate (Benzonatate 100 Mg Capsule) 100 mg PO TID PRN PRN Reason: Cough Calcium Carbonate (Calcium Carbonate 750 Mg Tab.Chew) 750 mg PO Q6H PRN PRN Reason: Heartburn Duloxetine HCl (Duloxetine Hcl 60 Mg Capsule.Dr) 60 mg PO DAILY [facility] Last Admin: 07/06/23 08:59 Dose: 60 mg Guaifenesin (Guaifenesin La 600 Mg Tab.Er.12h) 600 mg PO BID PRN PRN Reason: Congestion Last Admin: 07/04/23 08:37 Dose: 600 mg Haloperidol (Haloperidol 5 Mg Tablet) 5 mg PO DAILY@1400 [facility] Last Admin: 07/05/23 13:13 Dose: 5 mg Haloperidol (Haloperidol 1 Mg Tablet) 2 mg PO TID PRN PRN Reason: agitation,psychosis, self harm Haloperidol (Haloperidol 5 Mg Tablet) 5 mg PO TID PRN PRN Reason: severe anxiety,severe agitatio Last Admin: 07/05/23 18:39 Dose: 5 mg Hydroxyzine HCl (Hydroxyzine Hcl 25 Mg Tablet) 25 mg PO Q6H PRN PRN Reason: Anxiety Last Admin: 07/03/23 02:55 Dose: 25 mg Ibuprofen (Ibuprofen 400 Mg Tablet) 400 mg PO Q6H PRN PRN Reason: Pain, Mild (Pain Scale 1-3) Last Admin: 07/06/23 14:06 Dose: 400 mg Lorazepam (Lorazepam 1 Mg Tablet) 1 mg PO Q4H PRN PRN Reason: give w/Haldol for anx, agit Last Admin: 07/06/23 18:23 Dose: 1 mg Magnesium Hydroxide (Milk Of Magnesia 30 Ml Oral.Susp) 30 ml PO DAILY PRN PRN Reason: Constipation Magnesium Oxide (Magnesium Oxide 400 Mg Tablet) 400 mg PO DAILY [facility] Last Admin: 07/06/23 08:59 Dose: 400 mg Melatonin (Melatonin 3 Mg Tablet) 6 mg PO BEDTIME PRN PRN Reason: Insomnia Last Admin: 07/06/23 21:31 Dose: 6 mg Multivitamins/Vitamin C (Multivitamin Tablet) 1 tab PO DAILY [facility] Last Admin: 07/06/23 08:59 Dose: 1 tab Patient Own Medication (Arnicare Cream) 1 each TOPICAL TID PRN PRN Reason: pain Last Admin: 07/02/23 13:28 Dose: 1 each Patient Own Medication ([place] Ointment) 1 each TOPICAL QID PRN PRN Reason: pain Last Admin: 07/06/23 14:08 Dose: 1 each Pt Own (Concerta Er (27 Mg 1 Tab)) 1 tab PO DAILY [facility] Ondansetron HCl (Ondansetron Hcl 4 Mg/2 Ml Vial) 4 mg IVPUSH Q8H PRN PRN Reason: Nausea and Vomiting Polyethylene Glycol (Polyethylene Glycol 3350 17 Gm Powd.Pack) 17 gm PO DAILY PRN PRN Reason: Constipation Prazosin HCl (Prazosin Hcl 1 Mg Capsule) 1 mg PO BEDTIME [facility]; Protocol Last Admin: 07/06/23 21:31 Dose: 1 mg Topiramate (Topiramate 25 Mg Tablet) 150 mg PO BEDTIME [facility] Last Admin: 07/06/23 21:31 Dose: 150 mg Tramadol HCl (Tramadol Hcl 50 Mg Tablet) 50 mg PO Q12H PRN PRN Reason: knee pain Last Admin: 07/05/23 19:35 Dose: 50 mg Trazodone HCl (Trazodone Hcl 100 Mg Tablet) 100 mg PO BEDTIME [facility] Last Admin: 07/06/23 21:31 Dose: 100 mg Vitamin D (Cholecalciferol (Vitamin D3) 10 Mcg Tablet) 10 mcg PO DAILY [facility] Last Admin: 07/06/23 08:59 Dose: 10 mcg Allergies Allergies Allergy/AdvReac Type Severity Reaction Status Date / Time chlorpromazine Allergy Rash Verified 06/07/23 20:58 [From Thorazine] oxcarbazepine Allergy Unknown Verified 06/07/23 20:58 [From Trileptal] ziprasidone [From Geodon] Allergy Unknown Verified 06/07/23 20:58 Assessment & Plan Assessment & Plan (1) PTSD (post-traumatic stress disorder): Status: Acute Code(s): F43.10 - Post-traumatic stress disorder, unspecified (2) Borderline personality disorder: Status: Acute Code(s): F60.3 - Borderline personality disorder (3) Suicide attempt: Status: Acute Code(s): T14.91XA - Suicide attempt, initial encounter Plan Hospital course: 06/29 Patient remains on one-to-one; last night banging her head but was able to be redirected; thus far no self-harm today. Patient friendly on approach. Patient asked if tramadol could be increased since unable to cut it in half for 25 mg which has been ordered; jingle writer agreed that patient said that increased dose is helping. She asked for her regular clothes; she is not sure where she is in regards to remain safe but wants to work on a behavioral plan, keeping safe allowing her increased privileges. Discussed with nursing who is implementing plan. 06/30 Patient without any self-harming yesterday and last evening got there casual clothes back per behavioral plan; today however got dysregulated and banged head; patient hit forehead with minor superficial cut. 07/01 Pt discussing her behavior plan, discharge planning. Nasal congestion and sore throat today. Agrees to CAT Brain after head banging incidents. 07/03/23 Nasal congestion/ear infection sx persist. Mucinex ordered. 07/03: Continue Tx, Encouarge creative expression as suggested by out pt therapist. 07/04: Continue tx. Hold Adderall 07/05: Discontinue Adderall Concerta XR 27 mg daily ordered from [facility] and delivered at the end of the day. 07/06 contnue tx plan Plan: Pt to continue on 1:[address] Increased to Tramadol 50 mg 12H prn pain, to alternate with ibuprofen PT consult Continue current regime (connected with Dr. Moss) Encourage milieu therapy/groups Reason for continued inpatient stay Substantial Risk for: harm to self, inability to function and rapid decompensation Time Spent With Patient Time: Total time managing care of this patient today ____ minutes.
[2023-07-07 08:50] VITALS: BP 132/72; PULSE 138; RESP 20; TEMP 36.4; O2SAT 97
[2023-07-07] MEDS: hydrOXYzine HCL 25 MG TABLET PO ×2 (08:54→18:15)
[2023-07-07] MEDS: DULoxetine HCl 60 MG CAPSULE.DR PO (08:54)
[2023-07-07] MEDS: Cholecalciferol (Vitamin D3) 10 MCG TABLET PO (08:54)
[2023-07-07] MEDS: Magnesium Oxide 400 MG TABLET PO (08:54)
[2023-07-07] MEDS: Multivitamin TABLET 1 TAB PO (08:54)
[2023-07-07] MEDS: traMADoL HCL 50 MG TABLET PO ×2 (09:05→21:18)
[2023-07-07] MEDS: LORazepam 1 MG TABLET PO ×2 (10:35→18:15)
[2023-07-07] MEDS: HaloperidoL 5 MG TABLET PO ×2 (10:35→15:24)
[2023-07-07 20:00] VITALS: BP 125/68; PULSE 92; RESP 16; TEMP 36.6; O2SAT 95
[2023-07-07] MEDS: Topiramate 25 MG TABLET 150 MG PO (21:17)
[2023-07-07] MEDS: traZODone HCL 100 MG TABLET PO (21:18)
[2023-07-07 21:22] VITALS: BP 125/68
[2023-07-07] MEDS: Prazosin HCL 1 MG CAPSULE PO (21:22)
[2023-07-08] MEDS: Magnesium Oxide 400 MG TABLET PO (09:01)
[2023-07-08] MEDS: Multivitamin TABLET 1 TAB PO (09:01)
[2023-07-08] MEDS: DULoxetine HCl 60 MG CAPSULE.DR PO (09:01)
[2023-07-08] MEDS: Cholecalciferol (Vitamin D3) 10 MCG TABLET PO (09:01)
[2023-07-08 09:08] VITALS: BP 103/72; PULSE 137; RESP 20; TEMP 36.4; O2SAT 98
--- NOTE | 2023-07-08 10:24 | P.PNPSI_ITS ---
Subjective Subjective Date of Service: 07/08/23 Reason For Visit: PTSD, suicide attempt, MDD, Borderline Personality Interim History: One to one in place. Pt is maintaining her safety- no self harm in close to 24 hours asleep when tw attempted to meet with her. . Visible in milieu this a.m. Team is working with pt on activity increase to assist her in creative expression, connection to feelings, and mastering her environment as her therapist had suggested. Medication Compliance: Yes Side effects from medications: No Review of Systems Review of Systems Fatigued today, some URI sx linger. SARS/Flu/RSV testing is negative. Mental Status Exam Mental Status Exam Patient Appearance: Appropriate Patient Orientation: Person, Place, Time and Situation Level of Consciousness: Alert Patient Behavior: Talkative and Good Eye Contact Mood Description: Depressed and Anxious Affect Description: Flat Patient Cognition Impaired: No Ability to Follow Directions: Good Speech Pattern: Spontaneous Speech Memory Description: Intact Judgement: Fair Diagnostics Vital Signs (24Hr): Vital Signs - 24 hr 07/07/23 20:00 07/07/23 21:22 07/08/23 09:08 Temperature 97.8 F 97.6 F Pulse Rate 92 137 H Respiratory Rate 16 20 Blood Pressure 125/68 125/68 103/72 Pulse Oximetry 95 98 Oxygen Delivery Method Room Air Room Air BMI result Body Mass Index 51.9 Labs 06/28/23 16:55 Imaging Radiology Impressions: ITS Impressions Head CT 07/02/23 17:16 IMPRESSION: No acute intracranial abnormality including hemorrhage, mass effect, hydrocephalus, or acute territorial edematous infarction. Medications Medications Current Medications Al Hydroxide/Mg Hydroxide (Magnesium Hydrox/Alum Hydrox 30 Ml Oral.Susp) 30 ml PO Q6H PRN PRN Reason: Heartburn/Nausea Benzocaine (Throat Lozenge, Medicated Lozenge) 1 lozenge MUCOUS MEM Q2H PRN PRN Reason: Sore Throat Last Admin: 07/02/23 14:35 Dose: 1 lozenge Benzonatate (Benzonatate 100 Mg Capsule) 100 mg PO TID PRN PRN Reason: Cough Calcium Carbonate (Calcium Carbonate 750 Mg Tab.Chew) 750 mg PO Q6H PRN PRN Reason: Heartburn Duloxetine HCl (Duloxetine Hcl 60 Mg Capsule.Dr) 60 mg PO DAILY [facility] Last Admin: 07/08/23 09:01 Dose: 60 mg Guaifenesin (Guaifenesin La 600 Mg Tab.Er.12h) 600 mg PO BID PRN PRN Reason: Congestion Last Admin: 07/04/23 08:37 Dose: 600 mg Haloperidol (Haloperidol 5 Mg Tablet) 5 mg PO DAILY@1400 [facility] Last Admin: 07/07/23 15:24 Dose: 5 mg Haloperidol (Haloperidol 1 Mg Tablet) 2 mg PO TID PRN PRN Reason: agitation,psychosis, self harm Haloperidol (Haloperidol 5 Mg Tablet) 5 mg PO TID PRN PRN Reason: severe anxiety,severe agitatio Last Admin: 07/07/23 10:35 Dose: 5 mg Hydroxyzine HCl (Hydroxyzine Hcl 25 Mg Tablet) 25 mg PO Q6H PRN PRN Reason: Anxiety Last Admin: 07/07/23 18:15 Dose: 25 mg Ibuprofen (Ibuprofen 400 Mg Tablet) 400 mg PO Q6H PRN PRN Reason: Pain, Mild (Pain Scale 1-3) Last Admin: 07/06/23 14:06 Dose: 400 mg Lorazepam (Lorazepam 1 Mg Tablet) 1 mg PO Q4H PRN PRN Reason: give w/Haldol for anx, agit Last Admin: 07/07/23 18:15 Dose: 1 mg Magnesium Hydroxide (Milk Of Magnesia 30 Ml Oral.Susp) 30 ml PO DAILY PRN PRN Reason: Constipation Magnesium Oxide (Magnesium Oxide 400 Mg Tablet) 400 mg PO DAILY [facility] Last Admin: 07/08/23 09:01 Dose: 400 mg Melatonin (Melatonin 3 Mg Tablet) 6 mg PO BEDTIME PRN PRN Reason: Insomnia Last Admin: 07/06/23 21:31 Dose: 6 mg Multivitamins/Vitamin C (Multivitamin Tablet) 1 tab PO DAILY [facility] Last Admin: 07/08/23 09:01 Dose: 1 tab Patient Own Medication (Arnicare Cream) 1 each TOPICAL TID PRN PRN Reason: pain Last Admin: 07/02/23 13:28 Dose: 1 each Patient Own Medication ([place] Ointment) 1 each TOPICAL QID PRN PRN Reason: pain Last Admin: 07/06/23 14:08 Dose: 1 each Pt Own (Concerta Er (27 Mg Tablet)) 1 tab PO DAILY [facility] Last Admin: 07/08/23 09:03 Dose: 1 tab Ondansetron HCl (Ondansetron Hcl 4 Mg/2 Ml Vial) 4 mg IVPUSH Q8H PRN PRN Reason: Nausea and Vomiting Polyethylene Glycol (Polyethylene Glycol 3350 17 Gm Powd.Pack) 17 gm PO DAILY PRN PRN Reason: Constipation Prazosin HCl (Prazosin Hcl 1 Mg Capsule) 1 mg PO BEDTIME [facility]; Protocol Last Admin: 07/07/23 21:22 Dose: 1 mg Topiramate (Topiramate 25 Mg Tablet) 150 mg PO BEDTIME [facility] Last Admin: 07/07/23 21:17 Dose: 150 mg Tramadol HCl (Tramadol Hcl 50 Mg Tablet) 50 mg PO Q12H PRN PRN Reason: knee pain Last Admin: 07/07/23 21:18 Dose: 50 mg Trazodone HCl (Trazodone Hcl 100 Mg Tablet) 100 mg PO BEDTIME [facility] Last Admin: 07/07/23 21:18 Dose: 100 mg Vitamin D (Cholecalciferol (Vitamin D3) 10 Mcg Tablet) 10 mcg PO DAILY [facility] Last Admin: 07/08/23 09:01 Dose: 10 mcg Allergies Allergies Allergy/AdvReac Type Severity Reaction Status Date / Time chlorpromazine Allergy Rash Verified 06/07/23 20:58 [From Thorazine] oxcarbazepine Allergy Unknown Verified 06/07/23 20:58 [From Trileptal] ziprasidone [From Geodon] Allergy Unknown Verified 06/07/23 20:58 Assessment & Plan Assessment & Plan (1) PTSD (post-traumatic stress disorder): Status: Acute Code(s): F43.10 - Post-traumatic stress disorder, unspecified (2) Borderline personality disorder: Status: Acute Code(s): F60.3 - Borderline personality disorder (3) Suicide attempt: Status: Acute Code(s): T14.91XA - Suicide attempt, initial encounter Plan Hospital course: 06/29 Patient remains on one-to-one; last night banging her head but was able to be redirected; thus far no self-harm today. Patient friendly on approach. Patient asked if tramadol could be increased since unable to cut it in half for 25 mg which has been ordered; leader writer agreed that patient said that increased dose is helping. She asked for her regular clothes; she is not sure where she is in regards to remain safe but wants to work on a behavioral plan, keeping safe allowing her increased privileges. Discussed with nursing who is implementing plan. 06/30 Patient without any self-harming yesterday and last evening got there casual clothes back per behavioral plan; today however got dysregulated and banged head; patient hit forehead with minor superficial cut. 07/01 Pt discussing her behavior plan, discharge planning. Nasal congestion and sore throat today. Agrees to CAT Brain after head banging incidents. 07/03/23 Nasal congestion/ear infection sx persist. Mucinex ordered. 07/03: Continue Tx, Encouarge creative expression as suggested by out pt therapist. 07/04: Continue tx. Hold Adderall 07/05: Discontinue Adderall Concerta XR 27 mg daily ordered from [facility] and delivered at the end of the day. 07/06 contnue tx plan 07/07 continue tx Plan: Pt to continue on 1:[address] Increased to Tramadol 50 mg 12H prn pain, to alternate with ibuprofen PT consult Continue current regime (connected with Dr. Moss) Encourage milieu therapy/groups Reason for continued inpatient stay Substantial Risk for: harm to self and inability to function Time Spent With Patient Time: Total time managing care of this patient today ____ minutes.
[2023-07-08] MEDS: Ibuprofen 400 MG TABLET PO (11:22)
[2023-07-08] MEDS: traMADoL HCL 50 MG TABLET PO (11:22)
[2023-07-08] MEDS: HaloperidoL 5 MG TABLET PO ×2 (13:12→17:28)
[2023-07-08] MEDS: hydrOXYzine HCL 25 MG TABLET PO (17:22)
[2023-07-08] MEDS: LORazepam 1 MG TABLET PO (17:28)
[2023-07-08 20:00] VITALS: BP 113/78; PULSE 95; RESP 16; TEMP 36.9; O2SAT 96
[2023-07-08] MEDS: Prazosin HCL 1 MG CAPSULE PO (21:29)
[2023-07-08] MEDS: Topiramate 25 MG TABLET 150 MG PO (21:29)
[2023-07-08] MEDS: traZODone HCL 100 MG TABLET PO (21:29)
[2023-07-09] MEDS: DULoxetine HCl 60 MG CAPSULE.DR PO (08:41)
[2023-07-09] MEDS: Cholecalciferol (Vitamin D3) 10 MCG TABLET PO (08:41)
[2023-07-09] MEDS: Multivitamin TABLET 1 TAB PO (08:41)
[2023-07-09] MEDS: Magnesium Oxide 400 MG TABLET PO (08:41)
[2023-07-09 09:47] VITALS: BP 130/62; PULSE 130; RESP 16; TEMP 36.4; O2SAT 96
[2023-07-09] MEDS: traMADoL HCL 50 MG TABLET PO (09:59)
[2023-07-09] MEDS: Ibuprofen 400 MG TABLET PO ×2 (10:00→14:45)
[2023-07-09] MEDS: LORazepam 1 MG TABLET PO ×2 (13:13→18:23)
[2023-07-09] MEDS: HaloperidoL 5 MG TABLET PO (13:13)
--- NOTE | 2023-07-09 17:59 | P.PNPSI_ITS ---
Subjective Subjective Date of Service: 07/09/23 Reason For Visit: PTSD, suicide attempt, MDD, Borderline Personality Interim History: pt brighter today; remaining in behavioral control; no self harm in 24 hrs. showed me college they w were working on; pt using coping skills Medication Compliance: Yes Side effects from medications: No Review of Systems Review of Systems Fatigued today, some URI sx linger. SARS/Flu/RSV testing is negative. Mental Status Exam Mental Status Exam Patient Appearance: Appropriate Patient Orientation: Person, Place, Time and Situation Level of Consciousness: Alert Patient Behavior: Talkative and Good Eye Contact Mood Description: Depressed and Anxious Affect Description: Calm Patient Cognition Impaired: No Ability to Follow Directions: Good Speech Pattern: Spontaneous Speech Memory Description: Intact Judgement: Good Diagnostics Vital Signs (24Hr): Vital Signs - 24 hr 07/08/23 20:00 07/09/23 09:47 Temperature 98.5 F 97.5 F Pulse Rate 95 130 H Respiratory Rate 16 16 Blood Pressure 113/78 130/62 Pulse Oximetry 96 96 Oxygen Delivery Method Room Air Room Air BMI result Body Mass Index 51.9 Labs 06/28/23 16:55 Imaging Radiology Impressions: ITS Impressions Head CT 07/02/23 17:16 IMPRESSION: No acute intracranial abnormality including hemorrhage, mass effect, hydrocephalus, or acute territorial edematous infarction. Medications Medications Current Medications Al Hydroxide/Mg Hydroxide (Magnesium Hydrox/Alum Hydrox 30 Ml Oral.Susp) 30 ml PO Q6H PRN PRN Reason: Heartburn/Nausea Benzocaine (Throat Lozenge, Medicated Lozenge) 1 lozenge MUCOUS MEM Q2H PRN PRN Reason: Sore Throat Last Admin: 07/02/23 14:35 Dose: 1 lozenge Benzonatate (Benzonatate 100 Mg Capsule) 100 mg PO TID PRN PRN Reason: Cough Calcium Carbonate (Calcium Carbonate 750 Mg Tab.Chew) 750 mg PO Q6H PRN PRN Reason: Heartburn Duloxetine HCl (Duloxetine Hcl 60 Mg Capsule.Dr) 60 mg PO DAILY [facility] Last Admin: 07/09/23 08:41 Dose: 60 mg Guaifenesin (Guaifenesin La 600 Mg Tab.Er.12h) 600 mg PO BID PRN PRN Reason: Congestion Last Admin: 07/04/23 08:37 Dose: 600 mg Haloperidol (Haloperidol 5 Mg Tablet) 5 mg PO DAILY@1400 [facility] Last Admin: 07/09/23 13:13 Dose: 5 mg Haloperidol (Haloperidol 1 Mg Tablet) 2 mg PO TID PRN PRN Reason: agitation,psychosis, self harm Haloperidol (Haloperidol 5 Mg Tablet) 5 mg PO TID PRN PRN Reason: severe anxiety,severe agitatio Last Admin: 07/08/23 17:28 Dose: 5 mg Hydroxyzine HCl (Hydroxyzine Hcl 25 Mg Tablet) 25 mg PO Q6H PRN PRN Reason: Anxiety Last Admin: 07/08/23 17:22 Dose: 25 mg Ibuprofen (Ibuprofen 400 Mg Tablet) 400 mg PO Q6H PRN PRN Reason: Pain, Moderate(Pain Scale 4-6) Last Admin: 07/09/23 14:45 Dose: 400 mg Lorazepam (Lorazepam 1 Mg Tablet) 1 mg PO Q4H PRN PRN Reason: give w/Haldol for anx, agit Last Admin: 07/09/23 13:13 Dose: 1 mg Magnesium Hydroxide (Milk Of Magnesia 30 Ml Oral.Susp) 30 ml PO DAILY PRN PRN Reason: Constipation Magnesium Oxide (Magnesium Oxide 400 Mg Tablet) 400 mg PO DAILY [facility] Last Admin: 07/09/23 08:41 Dose: 400 mg Melatonin (Melatonin 3 Mg Tablet) 6 mg PO BEDTIME PRN PRN Reason: Insomnia Last Admin: 07/06/23 21:31 Dose: 6 mg Multivitamins/Vitamin C (Multivitamin Tablet) 1 tab PO DAILY [facility] Last Admin: 07/09/23 08:41 Dose: 1 tab Patient Own Medication (Arnicare Cream) 1 each TOPICAL TID PRN PRN Reason: pain Last Admin: 07/09/23 12:06 Dose: 1 each Patient Own Medication ([place] Ointment) 1 each TOPICAL QID PRN PRN Reason: pain Last Admin: 07/09/23 11:43 Dose: 1 each Pt Own (Concerta Er (27 Mg Tablet)) 1 tab PO DAILY [facility] Last Admin: 07/09/23 08:45 Dose: 1 tab Ondansetron HCl (Ondansetron Hcl 4 Mg/2 Ml Vial) 4 mg IVPUSH Q8H PRN PRN Reason: Nausea and Vomiting Polyethylene Glycol (Polyethylene Glycol 3350 17 Gm Powd.Pack) 17 gm PO DAILY PRN PRN Reason: Constipation Prazosin HCl (Prazosin Hcl 1 Mg Capsule) 1 mg PO BEDTIME [facility]; Protocol Last Admin: 07/08/23 21:29 Dose: 1 mg Topiramate (Topiramate 25 Mg Tablet) 150 mg PO BEDTIME [facility] Last Admin: 07/08/23 21:29 Dose: 150 mg Tramadol HCl (Tramadol Hcl 50 Mg Tablet) 50 mg PO Q12H PRN PRN Reason: knee pain Last Admin: 07/09/23 09:59 Dose: 50 mg Trazodone HCl (Trazodone Hcl 100 Mg Tablet) 100 mg PO BEDTIME [facility] Last Admin: 07/08/23 21:29 Dose: 100 mg Vitamin D (Cholecalciferol (Vitamin D3) 10 Mcg Tablet) 10 mcg PO DAILY [facility] Last Admin: 07/09/23 08:41 Dose: 10 mcg Allergies Allergies Allergy/AdvReac Type Severity Reaction Status Date / Time chlorpromazine Allergy Rash Verified 06/07/23 20:58 [From Thorazine] oxcarbazepine Allergy Unknown Verified 06/07/23 20:58 [From Trileptal] ziprasidone [From Geodon] Allergy Unknown Verified 06/07/23 20:58 Assessment & Plan Assessment & Plan (1) PTSD (post-traumatic stress disorder): Status: Acute Code(s): F43.10 - Post-traumatic stress disorder, unspecified (2) Borderline personality disorder: Status: Acute Code(s): F60.3 - Borderline personality disorder (3) Suicide attempt: Status: Acute Code(s): T14.91XA - Suicide attempt, initial encounter Plan Hospital course: 06/29 Patient remains on one-to-one; last night banging her head but was able to be redirected; thus far no self-harm today. Patient friendly on approach. Patient asked if tramadol could be increased since unable to cut it in half for 25 mg which has been ordered; program writer agreed that patient said that increased dose is helping. She asked for her regular clothes; she is not sure where she is in regards to remain safe but wants to work on a behavioral plan, keeping safe allowing her increased privileges. Discussed with nursing who is implementing plan. 06/30 Patient without any self-harming yesterday and last evening got there casual clothes back per behavioral plan; today however got dysregulated and banged head; patient hit forehead with minor superficial cut. 07/01 Pt discussing her behavior plan, discharge planning. Nasal congestion and sore throat today. Agrees to CAT Brain after head banging incidents. 07/03/23 Nasal congestion/ear infection sx persist. Mucinex ordered. 07/03: Continue Tx, Encouarge creative expression as suggested by out pt therapist. 07/04: Continue tx. Hold Adderall 07/05: Discontinue Adderall Concerta XR 27 mg daily ordered from [facility] and delivered at the end of the day. 07/06 contnue tx plan 07/07 continue tx 07/08 continue tx plan Plan: Pt to continue on 1:[address] Increased to Tramadol 50 mg 12H prn pain, to alternate with ibuprofen PT consult Continue current regime (connected with Dr. Moss) Encourage milieu therapy/groups Reason for continued inpatient stay Substantial Risk for: harm to self, inability to function and rapid decompensation Time Spent With Patient Time: Total time managing care of this patient today ____ minutes.
[2023-07-09] MEDS: HaloperidoL 1 MG TABLET 2 MG PO (18:23)
[2023-07-09 20:00] VITALS: BP 134/63; PULSE 81; RESP 17; TEMP 36.4; O2SAT 94
[2023-07-09] MEDS: Topiramate 25 MG TABLET 150 MG PO (20:34)
[2023-07-09] MEDS: Melatonin 3 MG TABLET 6 MG PO (20:35)
[2023-07-09] MEDS: Prazosin HCL 1 MG CAPSULE PO (20:35)
[2023-07-09] MEDS: hydrOXYzine HCL 25 MG TABLET PO (20:36)
[2023-07-09] MEDS: traZODone HCL 100 MG TABLET PO (20:36)
[2023-07-10] MEDS: LORazepam 1 MG TABLET PO (04:59)
[2023-07-10] MEDS: Ibuprofen 400 MG TABLET PO ×2 (04:59→09:59)
[2023-07-10 08:00] VITALS: BP 118/61; PULSE 83; RESP 16; TEMP 36.8
[2023-07-10] MEDS: Multivitamin TABLET 1 TAB PO (09:11)
[2023-07-10] MEDS: Cholecalciferol (Vitamin D3) 10 MCG TABLET PO (09:12)
[2023-07-10] MEDS: DULoxetine HCl 60 MG CAPSULE.DR PO (09:12)
[2023-07-10] MEDS: Magnesium Oxide 400 MG TABLET PO (09:12)
--- NOTE | 2023-07-10 10:20 | P.DS_ITS ---
DS: Providers Provider Date of Service: 07/10/23 Date of admission: 06/28/23 15:55 Date of discharge: 07/10/23 Primary care physician: Unknown Physician Admitting clinician: Jaye Hoskins Attending physician on admission: Vik Ramsay Attending physician on discharge: Vik Ramsay Discharging clinician: Jaye Hoskins DS: Diagnosis Discharge Diagnosis (1) PTSD (post-traumatic stress disorder): Status: Acute (2) Borderline personality disorder: Status: Acute (3) Suicide attempt: Status: Resolved DS: Medications Discharge Medications Home Medications: Previous Rx's ?Medication ?Instructions ?Recorded methylphenidate HCl 27 mg 27 mg PO DAILY #30 tabs 07/06/23 tablet,extended release 24 hr (Concerta) Patient Own Medication 1 ea topical QID PRN ##0 07/10/23 Patient Own Medication 1 ea topical TID PRN ##0 07/10/23 cholecalciferol (vitamin D3) 10 10 mcg PO DAILY #30 tabs 07/10/23 mcg (400 unit) tablet (Vitamin D3) desmopressin 0.2 mg tablet 0.2 mg PO BEDTIME #30 tabs 07/10/23 duloxetine 60 mg capsule,delayed 60 mg PO DAILY #30 caps 07/10/23 release haloperidol 5 mg tablet 5 mg PO DAILY@1400 #30 tabs 07/10/23 ketorolac 10 mg tablet 10 mg PO Q6H PRN Pain #90 tabs 07/10/23 magnesium oxide 400 mg (241.3 mg 400 mg PO DAILY #30 tabs 07/10/23 magnesium) tablet multivitamin (Daily-Yanira tablet) 1 tab PO DAILY #3 tabs 07/10/23 prazosin 1 mg capsule 1 mg PO BEDTIME #30 caps 07/10/23 topiramate 50 mg tablet 150 mg (3 x 50 mg) PO BEDTIME #90 07/10/23 tabs trazodone 100 mg tablet 100 mg PO BEDTIME #30 tabs 07/10/23 Mental Status Exam Mental Status Exam Patient Appearance: Appropriate Patient Orientation: Person, Place, Time and Situation Level of Consciousness: Alert Patient Behavior: Talkative and Good Eye Contact Mood Description: Depressed and Anxious Affect Description: Calm Patient Cognition Impaired: No Ability to Follow Directions: Good Speech Pattern: Spontaneous Speech Memory Description: Intact Judgement: Good Data Data Completed and Pending Completed studies during hospitalization [Text1]: 07/04/23 12:52 Influenza Type A (PCR) NEGATIVE Influenza Type B (PCR) NEGATIVE RSV RNA Qual (PCR) NEGATIVE SARS-CoV-2 RNA (RT-PCR) NEGATIVE Imaging Diagnostic Imaging Impressions Head CT 07/02/23 17:16 IMPRESSION: No acute intracranial abnormality including hemorrhage, mass effect, hydrocephalus, or acute territorial edematous infarction. DS: Summary Hospital Course Hospital Course: Admission to adult psychiatry for exacerbation of PTSD, recurrent major depression, borderline personality disorder in the context of a suicide attempt via OD of Tylenol. Pt was medically cleared and transferred from [facility] on 06/26. Upon arrival she attempted to strangle herself on the unit with socks, required medical admission and was readmitted to psychiatry on 06/28/23. Medications were evaluated with few changes as regime has been stable per out pt team. Pt did have episodes of head banging which required restraint. She was placed on one to one for her entire admission. She was able to work with the milieu and team on behavioral modification of symptoms, safety planning, and symptom mgt. She will return to out pt team with [facility] along with her residential program. Status at Discharge Functional status at discharge: independent ambulation Overall status at discharge: patient is progressing back to baseline Time Spent with Patient Time attestation: Total time managing care of this patient today ____ minutes. Time spent: Less than 30 minutes Discharge Plan Discharge Anticipated Discharge Date/Time: 07/10/23 12:00 Patient Disposition: Xfer Other Discharge Diagnosis: PTSD Borderline Personality Disorder Referrals: [facility] with Racquel Gonzalez [Other] - 07/12/23 9:00 am [facility] Psychiatry w Dr. Narda Viramnotes [Other] - 07/23/23 11:30 am Physician,Unknown J [Primary Care Provider] - 1 Week Discharge Medications: New multivitamin [Daily-Yanira] Tablet 1 tab PO DAILY Qty: 3 0RF magnesium oxide 400 mg (241.3 mg magnesium) Tablet 400 mg PO DAILY Qty: 30 0RF cholecalciferol (vitamin D3) [Vitamin D3] 10 mcg (400 unit) Tablet 10 mcg PO DAILY Qty: 30 0RF Patient Own Medication 1 ea topical QID PRNQty: 0 0RF Patient Own Medication 1 ea topical TID PRNQty: 0 0RF Continued methylphenidate HCl [Concerta] 27 mg tablet extended release 24hr 27 mg PO DAILY Qty: 30 0RF haloperidol 5 mg tablet 5 mg PO DAILY@1400 Qty: 30 0RF prazosin 1 mg capsule 1 mg PO BEDTIME Qty: 30 0RF desmopressin 0.2 mg tablet 0.2 mg PO BEDTIME Qty: 30 0RF ketorolac 10 mg tablet 10 mg PO Q6H PRN (Reason: Pain) Qty: 90 0RF trazodone 100 mg tablet 100 mg PO BEDTIME Qty: 30 0RF topiramate 50 mg tablet 150 mg PO BEDTIME Qty: 90 0RF duloxetine 60 mg capsule,delayed release(DR/EC) 60 mg PO DAILY Qty: 30 0RF Discharge Orders: Discharge Order (Routine); Ordered 07/10/23 Ordered By: Jaye Hoskins Diet: Advance to usual diet Activity on Discharge: As tolerated Stand Alone Forms: Patient Portal Discharge page, Community Support Print Language: Bulgarian Care Plan Goals: Mood and Behavioral Stabilization Health Concerns: Mood and Behavioral Stabilization Plan of Treatment: Attend scheduled appointments Take medications as directed Assessment: Scheduled discharge today. Discharge Date/Time: 07/10/23 11:07
--- NOTE | 2023-07-10 10:20 | P.PNPSI_ITS ---
Subjective Subjective Reason For Visit: PTSD, suicide attempt, MDD, Borderline Personality Diagnostics Vital Signs (24Hr): Vital Signs - 24 hr 07/09/23 20:00 07/10/23 08:00 Temperature 97.6 F 98.2 F Pulse Rate 81 83 Respiratory Rate 17 16 Blood Pressure 134/63 118/61 Pulse Oximetry 94 Oxygen Delivery Method Room Air Room Air BMI result Body Mass Index 51.9 Labs 06/28/23 16:55 Imaging Radiology Impressions: ITS Impressions Head CT 07/02/23 17:16 IMPRESSION: No acute intracranial abnormality including hemorrhage, mass effect, hydrocephalus, or acute territorial edematous infarction. Medications Medications Current Medications Al Hydroxide/Mg Hydroxide (Magnesium Hydrox/Alum Hydrox 30 Ml Oral.Susp) 30 ml PO Q6H PRN PRN Reason: Heartburn/Nausea Benzocaine (Throat Lozenge, Medicated Lozenge) 1 lozenge MUCOUS MEM Q2H PRN PRN Reason: Sore Throat Last Admin: 07/02/23 14:35 Dose: 1 lozenge Benzonatate (Benzonatate 100 Mg Capsule) 100 mg PO TID PRN PRN Reason: Cough Calcium Carbonate (Calcium Carbonate 750 Mg Tab.Chew) 750 mg PO Q6H PRN PRN Reason: Heartburn Duloxetine HCl (Duloxetine Hcl 60 Mg Capsule.Dr) 60 mg PO DAILY [facility] Last Admin: 07/10/23 09:12 Dose: 60 mg Guaifenesin (Guaifenesin La 600 Mg Tab.Er.12h) 600 mg PO BID PRN PRN Reason: Congestion Last Admin: 07/04/23 08:37 Dose: 600 mg Haloperidol (Haloperidol 5 Mg Tablet) 5 mg PO DAILY@1400 [facility] Last Admin: 07/09/23 13:13 Dose: 5 mg Haloperidol (Haloperidol 1 Mg Tablet) 2 mg PO TID PRN PRN Reason: agitation,psychosis, self harm Last Admin: 07/09/23 18:23 Dose: 2 mg Haloperidol (Haloperidol 5 Mg Tablet) 5 mg PO TID PRN PRN Reason: severe anxiety,severe agitatio Last Admin: 07/08/23 17:28 Dose: 5 mg Hydroxyzine HCl (Hydroxyzine Hcl 25 Mg Tablet) 25 mg PO Q6H PRN PRN Reason: Anxiety Last Admin: 07/09/23 20:36 Dose: 25 mg Ibuprofen (Ibuprofen 400 Mg Tablet) 400 mg PO Q6H PRN PRN Reason: Pain, Moderate(Pain Scale 4-6) Last Admin: 07/10/23 09:59 Dose: 400 mg Lorazepam (Lorazepam 1 Mg Tablet) 1 mg PO Q4H PRN PRN Reason: give w/Haldol for anx, agit Last Admin: 07/10/23 04:59 Dose: 1 mg Magnesium Hydroxide (Milk Of Magnesia 30 Ml Oral.Susp) 30 ml PO DAILY PRN PRN Reason: Constipation Magnesium Oxide (Magnesium Oxide 400 Mg Tablet) 400 mg PO DAILY [facility]ZY Last Admin: 07/10/23 09:12 Dose: 400 mg Melatonin (Melatonin 3 Mg Tablet) 6 mg PO BEDTIME PRN PRN Reason: Insomnia Last Admin: 07/09/23 20:35 Dose: 6 mg Multivitamins/Vitamin C (Multivitamin Tablet) 1 tab PO DAILY [facility] Last Admin: 07/10/23 09:11 Dose: 1 tab Patient Own Medication (Arnicare Cream) 1 each TOPICAL TID PRN PRN Reason: pain Last Admin: 07/09/23 12:06 Dose: 1 each Patient Own Medication (Iv[place] Ointment) 1 each TOPICAL QID PRN PRN Reason: pain Last Admin: 07/09/23 11:43 Dose: 1 each Pt Own (Concerta Er (27 Mg Tablet)) 1 tab PO DAILY [facility] Last Admin: 07/10/23 09:23 Dose: 1 tab Ondansetron HCl (Ondansetron Hcl 4 Mg/2 Ml Vial) 4 mg IVPUSH Q8H PRN PRN Reason: Nausea and Vomiting Polyethylene Glycol (Polyethylene Glycol 3350 17 Gm Powd.Pack) 17 gm PO DAILY PRN PRN Reason: Constipation Prazosin HCl (Prazosin Hcl 1 Mg Capsule) 1 mg PO BEDTIME BETZY; Protocol Last Admin: 07/09/23 20:35 Dose: 1 mg Topiramate (Topiramate 25 Mg Tablet) 150 mg PO BEDTIME BETZY Last Admin: 07/09/23 20:34 Dose: 150 mg Tramadol HCl (Tramadol Hcl 50 Mg Tablet) 50 mg PO Q12H PRN PRN Reason: knee pain Last Admin: 07/09/23 09:59 Dose: 50 mg Trazodone HCl (Trazodone Hcl 100 Mg Tablet) 100 mg PO BEDTIME BETZY Last Admin: 07/09/23 20:36 Dose: 100 mg Vitamin D (Cholecalciferol (Vitamin D3) 10 Mcg Tablet) 10 mcg PO DAILY [facility] Last Admin: 07/10/23 09:12 Dose: 10 mcg Allergies Allergies Allergy/AdvReac Type Severity Reaction Status Date / Time chlorpromazine Allergy Rash Verified 06/07/23 20:58 [From Thorazine] oxcarbazepine Allergy Unknown Verified 06/07/23 20:58 [From Trileptal] ziprasidone [From Geodon] Allergy Unknown Verified 06/07/23 20:58 Assessment & Plan Assessment & Plan (1) PTSD (post-traumatic stress disorder): Status: Acute Code(s): F43.10 - Post-traumatic stress disorder, unspecified (2) Borderline personality disorder: Status: Acute Code(s): F60.3 - Borderline personality disorder (3) Suicide attempt: Status: Acute Code(s): T14.91XA - Suicide attempt, initial encounter Plan Hospital course: 06/29 Patient remains on one-to-one; last night banging her head but was able to be redirected; thus far no self-harm today. Patient friendly on approach. Patient asked if tramadol could be increased since unable to cut it in half for 25 mg which has been ordered; senior mortgage underwriter agreed that patient said that increased dose is helping. She asked for her regular clothes; she is not sure where she is in regards to remain safe but wants to work on a behavioral plan, keeping safe allowing her increased privileges. Discussed with nursing who is implementing plan. 06/30 Patient without any self-harming yesterday and last evening got there casual clothes back per behavioral plan; today however got dysregulated and banged head; patient hit forehead with minor superficial cut. 07/01 Pt discussing her behavior plan, discharge planning. Nasal congestion and sore throat today. Agrees to [facility] Brain after head banging incidents. 07/03/23 Nasal congestion/ear infection sx persist. Mucinex ordered. 07/03: Continue Tx, Encouarge creative expression as suggested by out pt therapist. 07/04: Continue tx. Hold Adderall 07/05: Discontinue Adderall Concerta XR 27 mg daily ordered from [facility] pharmacy and delivered at the end of the day. 07/06 contnue tx plan 07/07 continue tx 07/08 continue tx plan Plan: Pt to continue on 1:[address] Increased to Tramadol 50 mg 12H prn pain, to alternate with ibuprofen PT consult Continue current regime (connected with Dr. Moss) Encourage milieu therapy/groups Time Spent With Patient Time: Total time managing care of this patient today ____ minutes.
== END 2023-07-10 11:07 | disposition other institution (70) | DRG 883 ==
PROVIDERS: Admitting Provider Clinical Nurse Specialist Psychiatric/Mental Health, Adult; Visit Provider Clinical Nurse Specialist Psychiatric/Mental Health, Adult
DX: F60.3 Borderline personality disorder (principal); F43.10 Post-traumatic stress disorder, unspecified; M54.50 Low back pain, unspecified; G89.29 Other chronic pain; F17.210 Nicotine dependence, cigarettes, uncomplicated; Z78.1 Physical restraint status; Z91.52 Personal history of nonsuicidal self-harm; Z91.51 Personal history of suicidal behavior; Z71.6 Tobacco abuse counseling; Z79.899 Other long term (current) drug therapy
CPT/HCPCS: 0241U; 36415; 70450; 80061; 82565; 82607; 82746; 83036; 83735; 84439; 84443; 97161; J1630; J2060

== ENCOUNTER → 2023-06-28 15:55 | Outpatient (BNV) | payer OTHER, SELFPAY | PROVIDERS: Admitting Provider Clinical Nurse Specialist Psychiatric/Mental Health, Adult; Visit Provider Clinical Nurse Specialist Psychiatric/Mental Health, Adult | DX: F60.3 Borderline personality disorder (principal); T14.91XA Suicide attempt, initial encounter; F43.11 Post-traumatic stress disorder, acute | CPT/HCPCS: 90792; 99231; 99232; 99238; 99499 ==